=== PATIENT | female | born 1985 | race Caucasian/White ===

== ENCOUNTER → 2017-10-26 10:40 | Outpatient (CLI) | payer MEDICARE, SELFPAY ==
[2017-10-26 12:05] LABS: Absolute Lymphocyte Count 3.16 X10^3/ul (0.83-4.51); Absolute Neutrophil Count 9.4 X10^3/uL (2.0-7.7); Basophil# 0.02 X10^3/uL; Basophil% 0.1 % (0-1); Eosinophil# 0.22 X10^3/uL; Eosinophils% 1.6 % (0-5); Hematocrit 41.8 % (37-47); Lymphocyte # 3.16 X10^3/ul (4.0); Lymphocyte % 23.6 % (19-41); Mean Corp Hgb Conc 33.5 g/gl (32-36); Mean Corpuscular Hgb 27.9 pg (27.0-32.0); Mean Corpuscular Volume 83.3 fL (81-99); Mean Platelet Vol. 10.5 fl (6.2-12.0); Monocyte# 0.57 X10^3/uL; Monocyte% 4.3 % (0-10); Neutrophil # 9.37 X10^3/uL (2.7-7.7); Neutrophil % 70.2 % (47-70); Platelet Count 325 K/mm3 (150-450); RBC Distribution Width CV 13.1 % (11.6-14.6); RBC Distribution Width SD 39.5 fl (35.1-43.9); Red Blood Count 5.02 M/mm3 (4.2-5.4); White Blood Count 13.4 K/mm3 (4.4-11.0)
[2017-10-26 12:07] LABS: POSITIVE COUNT NO; POSITIVE DIFFERENTIAL NO; POSITIVE MORPHOLOGY NO
[2017-10-26 12:31] LABS: ALB/GLOB Ratio 0.8 RATIO (0.9-2.4); AST(SGOT) 45 U/L (15-37); Alanine Aminotransfer ALT/SGPT 97 U/L (13-56); Albumin, Serum 3.4 g/dL (3.2-5.0); Alkaline Phosphatase 143 U/L (45-117); Anion Gap 10 (5-15); BUN 12 mg/dL (7-18); BUN/Creat Ratio 12.7 RATIO (10-20); Calcium,Total 8.9 mg/dL (8.5-10.1); Chloride 106 mmol/L (98-107); Creatinine, Serum 0.95 mg/dL (0.55-1.02); EST Glomerular Filtration Rate 73 mL/min (>60); Est Glom Filt Rate - Afr Amer 89 mL/min (>60); Glucose 164 mg/dL (74-106); Potassium 3.9 mmol/L (3.5-5.1); Protein, Total 7.4 g/dL (6.4-8.2); Sodium Level 140 mmol/L (136-145); Thyroid Stim Hormone (TSH) 2.89 uIU/mL (0.358-3.74)
== END ==
PROVIDERS: Family Provider Family Medicine; PCP Family Medicine; Visit Provider Family Medicine
DX: F32.9 Major depressive disorder, single episode, unspecified (principal); E03.9 Hypothyroidism, unspecified
CPT/HCPCS: 36415; 80053; 84443; 85025

== ENCOUNTER → 2017-11-29 11:43 | Outpatient (CLI) | payer MEDICARE, SELFPAY ==
[2017-11-29 13:07] LABS: Hemoglobin A1c 7.6 % (4.2-6.3)
[2017-11-29 13:19] LABS: Free T3 2.5 pg/mL (2.18-3.98); Luteinizing Hormone 13.2 mIU/mL; T4 Free Direct 0.98 ng/dL (0.76-1.46); Thyroid Stim Hormone (TSH) 3.46 uIU/mL (0.358-3.74)
== END ==
PROVIDERS: Visit Provider Obstetrics & Gynecology
DX: N92.1 Excessive and frequent menstruation with irregular cycle (principal); E03.9 Hypothyroidism, unspecified; Z86.32 Personal history of gestational diabetes
CPT/HCPCS: 36415; 83001; 83002; 83036; 84146; 84439; 84443; 84481

== ENCOUNTER → 2018-01-21 14:15 | Outpatient (CLI) | payer MEDICARE, SELFPAY ==
[2018-01-29 16:49] LABS: HPV HC, High Risk Negative (Negative); HPV Reflexed? YES, CHARGE PATIENT
== END ==
PROVIDERS: Visit Provider Obstetrics & Gynecology
DX: Z12.4 Encounter for screening for malignant neoplasm of cervix (principal)
CPT/HCPCS: 87624; 88175; G0145

== ENCOUNTER 2018-03-28 15:46 | Emergency (ER) | payer MEDICARE, MEDICAID, SELFPAY ==
[2018-03-28 15:47] VITALS: BP 148/110; PULSE 93; RESP 16; TEMP 36; O2SAT 98; BMI 46.3
--- NOTE | 2018-03-28 16:24 | US_ITS ---
STUDY: ULTRASOUND OF THE FEMALE PELVIS - COMPLETE REASON FOR EXAM: Female, 33 years old. Right lower quadrant pain. LMP: March 06, 2018. TECHNIQUE: Transabdominal and Transvaginal TECHNICAL QUALITY: Adequate. COMPARISON: July 31, 2012. FINDINGS: The uterus is anteverted and is in a midline position. The uterus measures 8.6 x 5.7 x 3.6 cm. Normal uterine cervix. The endometrium measures 3 mm in thickness, and is hyperechoic. There is no demonstrated endometrial mass. There is no demonstrated myometrial mass. I.U.D. -there is an IUD in satisfactory position. The right ovary is visualized. The right ovary measures 6.1 x 5.4 x 4.3 cm. There is a 4.6 x 4.8 x 3.9 cm complex right ovarian cyst. There is no visualized right adnexal mass or complex lesion. There is normal arterial and normal venous vascularity. The left ovary is visualized. The left ovary measures 2.7 x 2.2 x 1.6 cm. There are multiple follicles of the left ovary without a dominant cyst. There is no visualized left adnexal mass or complex lesion. There is normal arterial and normal venous vascularity. There is a mild amount of fluid in the cul-de-sac. The urinary bladder appears grossly unremarkable Polycystic ovary disease: No. US/Transvaginal Non- IMPRESSION: 1. Large septated right ovarian cyst. 2. Normal uterus containing an IUD in satisfactory position. 3. Normal left ovary. 4. Mild free fluid in the posterior cul-de-sac, thought to be physiologic. Electronically Signed: Miguelito Koehler DO at 17:50 EST Tel [phone], Service support ,
--- NOTE | 2018-03-28 16:26 | ED.VISSUMM ---
- ER Visit Summary Date of Service: 03/28/18 Chief Complaint: ovary pain History of Present Illness: The patient is a 33 F who presents complaining of 1 hour of ovaries hurting. Patient states she had sudden onset of bilateral pelvic pain, right greater than left. Pain radiates into the back. It is sharp and stabbing, severe. She took ibuprofen without any relief. She had associated nausea. She denies fever, chest pain, shortness of breath, URI symptoms, vomiting, diarrhea or urinary symptoms. Last menstrual period was earlier this month. Patient states she has an IUD in place and does not think she is . She has a history of PCO S and an ovarian cyst. Also history of diabetes. Physical Examination: Vital signs: afebrile, hemodynamically stable, no hypoxia on room air General: well nourished, well developed, in no distress Skin: warm, dry, no rash, no pallor HEENT: normocephalic and atraumatic; PERRL, EOMI, moist mucous membranes Cardiovascular: regular rate and rhythm without murmurs, no peripheral edema, 2+ pulses all distal extremities Respiratory: No increased work of breathing, lungs are clear to auscultation bilaterally, no rales, rhonchi or wheezing Abdominal: Abdomen is soft, tender in the suprapubic region with normoactive bowel sounds, no guarding or rebound, no masses MSK: Moves all extremities, no deformities, normal strength Neuro: Awake and alert, oriented ?4. No facial droop, sensation and motor function intact and symmetric Test Results: Abnormal Lab Results 03/28/18 03/28/18 03/28/18 16:40 16:40 18:02 WBC 10.7 RBC 4.67 Hgb 13.2 Hct 39.5 MCV 84.6 MCH 28.3 MCHC 33.4 RDW 13.6 RDW Differential 41.3 Plt Count 209 MPV 11.3 Immature Gran % (Auto) 0.200 Neut % (Auto) 76.3 H Lymph % (Auto) 16.1 L [place] % (Auto) 5.6 Eos % (Auto) 1.6 Baso % (Auto) 0.2 Absolute Neuts (auto) 8.2 H Absolute Lymphs (auto) 1.72 Total Counted Not Reportable Sodium 135 L Potassium 4.7 Chloride 104 Carbon Dioxide 24.0 Anion Gap 7 BUN 13 Creatinine 0.72 Estim Creat Clear Calc 97.76 Est GFR (MDRD) Af Amer 122 Est GFR (MDRD) Non-Af 101 BUN/Creatinine Ratio 18.1 Glucose 117 H Calcium 8.6 Total Bilirubin 0.70 AST 41 H ALT 36 Alkaline Phosphatase 115 Total Protein 7.3 Albumin 3.5 Globulin 3.8 Albumin/Globulin Ratio 0.9 Urine Color Urine Clarity Urine pH Ur Specific [place] Urine Protein Urine Glucose (UA) Urine Ketones Urine Occult Blood Urine Nitrite Urine Bilirubin Urine Urobilinogen Ur Leukocyte Esterase Urine RBC Urine WBC Ur Squamous Epith Cells Urine Bacteria Urine Mucus Urine Test Negative 03/28/18 18:02 WBC RBC Hgb Hct MCV MCH MCHC RDW RDW Differential Plt Count MPV Immature Gran % (Auto) Neut % (Auto) Lymph % (Auto) [place] % (Auto) Eos % (Auto) Baso % (Auto) Absolute Neuts (auto) Absolute Lymphs (auto) Total Counted Sodium Potassium Chloride Carbon Dioxide Anion Gap BUN Creatinine Estim Creat Clear Calc Est GFR (MDRD) Af Amer Est GFR (MDRD) Non-Af BUN/Creatinine Ratio Glucose Calcium Total Bilirubin AST ALT Alkaline Phosphatase Total Protein Albumin Globulin Albumin/Globulin Ratio Urine Color Yellow Urine Clarity Clear Urine pH 6.0 Ur Specific [place] 1.015 Urine Protein Negative Urine Glucose (UA) Normal Urine Ketones Negative Urine Occult Blood Negative Urine Nitrite Negative Urine Bilirubin Negative Urine Urobilinogen Normal Ur Leukocyte Esterase Negative Urine RBC 0 SEEN Urine WBC 0 SEEN Ur Squamous Epith Cells 0-5 SEEN Urine Bacteria 0 SEEN Urine Mucus 0 SEEN Urine Test Clinical Impression(s) from Imaging Studies Transvaginal US 03/28/18 16:24 IMPRESSION: 1. Large septated right ovarian cyst. 2. Normal uterus containing an IUD in satisfactory position. 3. Normal left ovary. 4. Mild free fluid in the posterior cul-de-sac, thought to be physiologic. Electronically Signed: Miguelito Koehler DO at 17:50 EST Tel [phone], Service support , Medications Given Discontinued Medications Sodium Chloride () 1,000 mls @ 1,000 mls/hr IV .Q1H ONE Stop: 03/28/18 17:23 Last Admin: 03/28/18 16:59 Dose: 1,000 mls/hr Ketorolac Tromethamine (Toradol) 15 mg IV X1 ONE Stop: 03/28/18 16:26 Last Admin: 03/28/18 16:59 Dose: 15 mg Ondansetron HCl (Zofran) 4 mg IV X1 ONE Stop: 03/28/18 16:26 Last Admin: 03/28/18 16:59 Dose: 4 mg Emergency Department Course and Treatment: Patient given IV fluids, toradol and zofran for symptoms. Differential if patient is includes ectopic . Differential if not including ovarian torsion or appendicitis. Labs performed, including CBC, test, urinalysis, CMP, and a pelvic ultrasound performed. Patient's labs were unremarkable, with no leukocytosis, no significant electrolyte derangements. Urine negative for infection. negative. Ultrasound of the pelvis did show a large right ovarian cyst. No evidence of torsion. Patient received the Toradol for pain, and on reevaluation her pain was much improved. She was still mildly tender in the pelvic region but it was an improved examination. Patient states she feels well enough to go home. We discussed return precautions, including signs to watch for that might indicate appendicitis. Patient was discharged home in much improved condition. Treatment Plan: [] Disposition: [] Impression: Right ovarian cyst, pelvic pain This note was generated with [employer] dictation software. It may contain incorrect words, spelling, and punctuation that were not noted in review of the chart prior to signing ED Disposition - Plan for ED Patient: Disposition: Home or Assisted Living Chief Complaint: Abd Pain Instructions: ED Cyst Ovarian Prescriptions: RX: Ibuprofen 600 mg PO 4X/DAY PRN #20 tab PRN Reason: Pain Referrals: Yanelis Jones MD [Primary Care Provider] - 3-5 Days if not improving Additional Instructions: Use ibuprofen as needed for pain. If you develop fever, worsening pain, uncontrolled vomiting, decreased appetite, or have any other new or concerning symptoms, return immediately to the emergency department for another evaluation.
[2018-03-28] MEDS: Ondansetron 4 MG/2 ML Vial IV (16:59)
[2018-03-28] MEDS: 0.9% Normal Saline 1,000 ML 1000 ML IV (16:59)
[2018-03-28] MEDS: Ketorolac 15 MG/ML Vial IV (16:59)
[2018-03-28 17:06] LABS: Absolute Lymphocyte Count 1.72 X10^3/ul (0.83-4.51); Absolute Neutrophil Count 8.2 X10^3/uL (2.0-7.7); Basophil# 0.02 X10^3/uL; Basophil% 0.2 % (0-1); Eosinophil# 0.17 X10^3/uL; Eosinophils% 1.6 % (0-5); Hematocrit 39.5 % (37-47); Hemoglobin 13.2 g/dl (12.0-15.0); Lymphocyte # 1.72 X10^3/ul (4.0); Lymphocyte % 16.1 % (19-41); Mean Corp Hgb Conc 33.4 g/gl (32-36); Mean Corpuscular Hgb 28.3 pg (27.0-32.0); Mean Corpuscular Volume 84.6 fL (81-99); Mean Platelet Vol. 11.3 fl (6.2-12.0); Monocyte% 5.6 % (0-10); Neutrophil # 8.15 X10^3/uL (2.7-7.7); Neutrophil % 76.3 % (47-70); Platelet Count 209 K/mm3 (150-450); RBC Distribution Width CV 13.6 % (11.6-14.6); RBC Distribution Width SD 41.3 fl (35.1-43.9); Red Blood Count 4.67 M/mm3 (4.2-5.4); White Blood Count 10.7 K/mm3 (4.4-11.0)
[2018-03-28 17:10] LABS: POSITIVE COUNT NO; POSITIVE DIFFERENTIAL NO; POSITIVE MORPHOLOGY NO
[2018-03-28 17:37] LABS: ALB/GLOB Ratio 0.9 RATIO (0.9-2.4); AST(SGOT) 41 U/L (15-37); Alanine Aminotransfer ALT/SGPT 36 U/L (13-56); Albumin, Serum 3.5 g/dL (3.2-5.0); Alkaline Phosphatase 115 U/L (45-117); Anion Gap 7 (5-15); BUN 13 mg/dL (7-18); BUN/Creat Ratio 18.1 RATIO (10-20); Calcium,Total 8.6 mg/dL (8.5-10.1); Chloride 104 mmol/L (98-107); Creatinine, Serum 0.72 mg/dL (0.55-1.02); EST Glomerular Filtration Rate 101 mL/min (>60); Est Glom Filt Rate - Afr Amer 122 mL/min (>60); Estimated Creatinine Clearance 97.76 ml/min; Globulin 3.8 g/dL (2.2-4.2); Glucose 117 mg/dL (74-106); Potassium 4.7 mmol/L (3.5-5.1); Protein, Total 7.3 g/dL (6.4-8.2); Sodium Level 135 mmol/L (136-145)
[2018-03-28 18:13] LABS: Bacteria 0 SEEN /hpf (None Seen); Mucous, Urine 0 SEEN /hpf (<or=2+); Red Blood Cells-Urine 0 SEEN /hpf (0-5); White Blood Cells 0 SEEN /hpf (0-5)
[2018-03-28 18:22] LABS: Color, Urine Yellow (Yellow); Glucose, Dipstick Normal (Normal); Ketone-Dipstick Negative (Negative); Leukocyte Esterase-Dipstick Negative /ul (Negative); Nitrite-Dipstick Negative (Negative); Occult Blood-Urine Negative /ul (Negative); Protein-Dipstick Negative (Negative); Specific Gravity, Urine 1.015 (1.002-1.030); Urine Bilirubin Dipstick Negative (Negative); Urine Clarity Clear (Clear); Urine Urobilinogen Normal (Normal)
[2018-03-28 18:25] LABS: Internal QC Validated? YES +Cl - CLEAR BKGD; Pregnancy, Urine Negative Negative
[2018-03-28 18:32] LABS: Squamous Epithelial Cells - UA 0-5 SEEN /hpf (5-10)
--- NOTE | 2018-03-28 19:01 | ED.DEP ---
ED Disposition - Plan for ED Patient: Disposition: Home or Assisted Living Chief Complaint: Abd Pain Instructions: ED Cyst Ovarian Prescriptions: Ibuprofen 600 mg PO 4X/DAY PRN #20 tab PRN Reason: Pain Referrals: Yanelis Jones MD [Primary Care Provider] - 3-5 Days if not improving Additional Instructions: Use ibuprofen as needed for pain. If you develop fever, worsening pain, uncontrolled vomiting, decreased appetite, or have any other new or concerning symptoms, return immediately to the emergency department for another evaluation.
[2018-03-28 19:12] VITALS: BP 143/95; PULSE 74; RESP 18; O2SAT 95
== END 2018-03-28 19:12 | disposition home or self-care (01) ==
PROVIDERS: Emergency Provider Emergency Medicine; Family Provider Family Medicine; PCP Family Medicine
DX: N83.201 Unspecified ovarian cyst, right side (principal); R10.2 Pelvic and perineal pain; R11.0 Nausea; E66.9 Obesity, unspecified; E28.2 Polycystic ovarian syndrome; E11.9 Type 2 diabetes mellitus without complications; Z97.5 Presence of (intrauterine) contraceptive device; Z79.84 Long term (current) use of oral hypoglycemic drugs; Z79.899 Other long term (current) drug therapy
CPT/HCPCS: 76830; 80053; 81001; 81025; 85025; 93976; 96361; 96374; 96375; 99285; J7030; A4216; J2405

== ENCOUNTER → 2018-06-11 | Outpatient (CLI) | payer MEDICARE, SELFPAY ==
[2018-06-11 13:36] LABS: AST(SGOT) 18 U/L (15-37); Alanine Aminotransfer ALT/SGPT 35 U/L (13-56); Albumin, Serum 3.6 g/dL (3.2-5.0); Alkaline Phosphatase 127 U/L (45-117); Anion Gap 3 (5-15); BUN 14 mg/dL (7-18); BUN/Creat Ratio 18.4 RATIO (10-20); Calcium,Total 8.6 mg/dL (8.5-10.1); Chloride 104 mmol/L (98-107); Cholesterol 190 mg/dL (200); Creatinine, Serum 0.76 mg/dL (0.55-1.02); EST Glomerular Filtration Rate 94 mL/min (>60); Est Glom Filt Rate - Afr Amer 114 mL/min (>60); Globulin 3.4 g/dL (2.2-4.2); Glucose 135 mg/dL (74-106); High Density Lipoprotein 31 mg/dL; Potassium 4.6 mmol/L (3.5-5.1); Sodium Level 136 mmol/L (136-145); Triglycerides 188 mg/dL; Very Low Density Lipoprotein 38 mg/dL (5-40)
[2018-06-11 15:54] LABS: Microalbumin,Random Urine 13.8 mg/L (NO RANGE EST.); Microalbumin:Creatinine Ratio 9.4 mg/g CRE (<30 mg/g CRE)
== END | disposition home or self-care (01) ==
LOC: MFPLAB 11:16
PROVIDERS: Family Provider Family Medicine; PCP Family Medicine; Referring Provider Family Medicine; Visit Provider Family Medicine
DX: E11.9 Type 2 diabetes mellitus without complications (principal)
CPT/HCPCS: 36415; 80048; 80061; 80076; 82043; 82570

== ENCOUNTER → 2019-05-27 11:48 | Outpatient (CLI) | payer MEDICARE, SELFPAY ==
[2019-05-27 15:42] LABS: Microalbumin,Random Urine 13.4 mg/L (NO RANGE EST.); Microalbumin:Creatinine Ratio 7.1 mg/g CRE (<30 mg/g CRE)
[2019-05-27 15:45] LABS: AST(SGOT) 21 U/L (15-37); Alanine Aminotransfer ALT/SGPT 58 U/L (13-56); Albumin, Serum 3.6 g/dL (3.2-5.0); Alkaline Phosphatase 142 U/L (45-117); Anion Gap 9 (5-15); BUN 14 mg/dL (7-18); BUN/Creat Ratio 19.5 RATIO (10-20); Bilirubin, Direct 0.09 mg/dL (0.00-0.30); Calcium,Total 9.3 mg/dL (8.5-10.1); Chloride 101 mmol/L (98-107); Cholesterol 185 mg/dL (200); Creatinine, Serum 0.72 mg/dL (0.55-1.02); EST Glomerular Filtration Rate 100 mL/min (>60); Est Glom Filt Rate - Afr Amer 121 mL/min (>60); Globulin 4.3 g/dL (2.2-4.2); Glucose 156 mg/dL (74-106); High Density Lipoprotein 32 mg/dL; Potassium 4.2 mmol/L (3.5-5.1); Protein, Total 7.9 g/dL (6.4-8.2); Sodium Level 135 mmol/L (136-145); T4 Total, Thyroxin 11.8 ug/dL (4.8-13.9); Thyroid Stim Hormone (TSH) 2.93 uIU/mL (0.358-3.74); Triglycerides 184 mg/dL; Very Low Density Lipoprotein 37 mg/dL (5-40)
[2019-05-27 17:43] LABS: Hemoglobin A1c 6.5 % (4.2-6.3)
== END ==
PROVIDERS: PCP Family Medicine; Referring Provider Family Medicine; Visit Provider Family Medicine
DX: E11.9 Type 2 diabetes mellitus without complications (principal); E03.9 Hypothyroidism, unspecified
CPT/HCPCS: 36415; 80048; 80061; 80076; 82043; 82570; 83036; 84436; 84443

== ENCOUNTER → 2019-12-23 15:32 | Outpatient (CLI) | payer MEDICARE, MEDICAID, SELFPAY ==
[2019-12-23 17:46] LABS: Hematocrit 38.2 % (37-47); Hemoglobin 12.4 g/dL (12.0-15.0); Mean Corp Hgb Conc 32.5 g/dL (32-36); Mean Corpuscular Hgb 28.3 pg (27.0-32.0); Mean Corpuscular Volume 87.2 fL (81-99); Mean Platelet Vol. 10.5 fl (6.2-12.0); Platelet Count 252 K/mm3 (150-450); RBC Distribution Width CV 13.8 % (11.6-14.6); RBC Distribution Width SD 43.5 fl (35.1-43.9); Red Blood Count 4.38 M/mm3 (4.2-5.4); White Blood Count 13.1 K/mm3 (4.4-11.0)
[2019-12-23 18:03] LABS: Vitamin D,25 Hydroxy 13.2 ng/mL
[2019-12-23 18:07] LABS: ALB/GLOB Ratio 0.7 RATIO (0.9-2.4); AST(SGOT) 23 U/L (15-37); Alanine Aminotransfer ALT/SGPT 41 U/L (13-56); Albumin, Serum 2.9 g/dL (3.2-5.0); Alkaline Phosphatase 104 U/L (45-117); Anion Gap 8 (5-15); BUN 9 mg/dL (7-18); BUN/Creat Ratio 16.7 RATIO (10-20); Calcium,Total 8.6 mg/dL (8.5-10.1); Chloride 103 mmol/L (98-107); Creatinine, Serum 0.54 mg/dL (0.55-1.02); EST Glomerular Filtration Rate 139 mL/min (>60); Est Glom Filt Rate - Afr Amer 168 mL/min (>60); Globulin 3.9 g/dL (2.2-4.2); Glucose 145 mg/dL (74-106); Protein, Total 6.8 g/dL (6.4-8.2); Protein, Urine (Random) 21.1 mg/dL (<11.9); Sodium Level 137 mmol/L (136-145); Thyroid Stim Hormone (TSH) 1.01 uIU/mL (0.358-3.74)
[2019-12-23 18:27] LABS: Hemoglobin A1c 5.3 % (3.8-5.6)
== END ==
PROVIDERS: PCP Family Medicine
DX: O24.414 Gestational diabetes mellitus in pregnancy, insulin controlled (principal); O09.292 Supervision of pregnancy with other poor reproductive or obstetric history, second trimester; Z3A.00 Weeks of gestation of pregnancy not specified
CPT/HCPCS: 36415; 80053; 82306; 82570; 83036; 84156; 84443; 85027

== ENCOUNTER → 2020-03-03 15:09 | Outpatient (CLI) | payer MEDICARE, SELFPAY | PROVIDERS: PCP Family Medicine; Visit Provider Family Medicine | DX: J06.9 Acute upper respiratory infection, unspecified (principal) | CPT/HCPCS: 87635; U0003 ==

== ENCOUNTER 2020-05-07 23:30 | Outpatient (CLI) | payer MEDICARE, MEDICAID, SELFPAY ==
[2020-05-07 23:49] VITALS: PULSE 77; TEMP 35.6; O2SAT 97
[2020-05-07 23:50] VITALS: BP 178/96; PULSE 73
[2020-05-07 23:53] VITALS: BMI 46.2
[2020-05-08] VITALS (153 sets, daily range): BP systolic 102–177; BP diastolic 52–102; PULSE 57–83; RESP 12–20; TEMP 35.6–37.4; O2SAT 88–100
[2020-05-08 00:39] LABS: Protein, Urine (Random) 19.2 mg/dL (<11.9); Protein:Creat Ratio 178 mg/g CRE (0-200)
[2020-05-08] MEDS: Magnesium Sulfate 4gm/100mL 4 GM/100 ML IV.SOLN. IV (00:42)
[2020-05-08] MEDS: Magnesium Sulfate 4gm/100mL 2 GM/50 ML IV.SOLN. IV (01:02)
[2020-05-08] MEDS: Lactated Ringers 1,000 ML 15 ML IV (01:03)
[2020-05-08] MEDS: Labetalol (Prefilled) 20 MG/4 ML IV (01:08)
[2020-05-08 01:14] LABS: Hematocrit 41.2 % (37-47); Hemoglobin 13.2 g/dL (12.0-15.0); Mean Corpuscular Hgb 27.4 pg (27.0-32.0); Mean Corpuscular Volume 85.5 fL (81-99); Mean Platelet Vol. 9.6 fl (6.2-12.0); Platelet Count 341 K/mm3 (150-450); RBC Distribution Width CV 13.3 % (11.6-14.6); RBC Distribution Width SD 41.5 fl (35.1-43.9); Red Blood Count 4.82 M/mm3 (4.2-5.4); White Blood Count 11.3 K/mm3 (4.4-11.0)
[2020-05-08] MEDS: Magnesium Sulfate 20 GM/500 ML BAG IV ×3 (01:15→19:57)
[2020-05-08 01:36] LABS: AST(SGOT) 17 U/L (15-37); Alanine Aminotransfer ALT/SGPT 52 U/L (13-56); Creatinine, Serum 0.77 mg/dL (0.55-1.02); EST Glomerular Filtration Rate 92 mL/min (>60); Est Glom Filt Rate - Afr Amer 111 mL/min (>60); Estimated Creatinine Clearance 89.74 ml/min
[2020-05-08] MEDS: Labetalol 100 MG Tablet PO ×3 (02:04→22:00)
[2020-05-08] MEDS: Ibuprofen 600 MG Tablet PO ×3 (03:49→18:10)
--- NOTE | 2020-05-08 07:41 | HP.PCM_ITS ---
Problem List (1) Pre-eclampsia, Status: Acute (2) Obesity Status: Acute History and Physical Date of Admission: 05/07/20 35-year-old who delivered on 04/27/[address] Carlos De Oliveira at [facility] presents complaining of a headache and elevated blood pressures at home. Patient reports blood pressures at home systolics were 150s to 170s over 90s to 100s. Patient denies any visual changes epigastric or right upper quadrant pain. Patient reports that during her second she did have gestational diabetes that required insulin. Patient states that with her first she was preeclamptic and was induced and on magnesium. Patient states she did take aspirin during her last . She reports that her blood pressures at delivery were normal. On my arrival for evaluation of the patient she alluded that she had seen Dr. Han for this as well. Discussed with the patient that I will reach out to Dr. Han for her to resume care at this time. PMH: GDMA2, pt reports she thinks she might be diabetic outside of , Obesity OBHX: x 2 complicated by GDMA2, PRE E (took labetalol post with first child) Gen: Female resting comfortably in bed. Abd: soft, non tender to palpation. No rebound, no guarding ext: +2 DTR, no clonus a/p: 35you s/p on 04/27/20 complicated by GDMA2 present with Post Preeclampsia in severe range. 1) After discussion with patient and care Dr. Han was called and will resume care at this time 2) Magnesium 6g loading 2 g/hr started 3) Labetalol IV 20mg given x 1 4) PO labetalol held this morning due to low BP- will continue to monitor 5) PRE E labs completed Singing off on patient- Dr. Han given report and will resume care.
[2020-05-08 11:21] LABS: Bedside Glucose 105 mg/dL (70-110)
[2020-05-08 17:15] LABS: Bedside Glucose 105 mg/dL (70-110)
--- NOTE | 2020-05-08 17:33 | PCM.PN.BLA ---
Progress Note Stopped in ~ 1:45 pm to see patient admitted with headaches and elevated BP's 2 wks post . Currently on MgSO4 at 2gm /he S: Hungry. LOPEZ resolved. Lochia -scant. Feels much better than on presentation O; A&O x 3 , cooperative , in fall protected bed abdomen: soft, , non tender Ext: NT, reflexes 1+/4 Labs reviewed: no proteinuria of significance. Chemistries unremarkable other than elevated uric acid. A/P: Atypical Pre eclampsia - Pt with insulin controlled DM in , possibly diabetic outside - will monitor blood sugars while here. Continue to pump to maintain breastmilk BP's appear controlled on Labetalol 200mg bid. will continue. Obesity - nursing encouraged, will need to address on chronic basis Thanks to Dr. Joy for admission and care. STROKE Vital Signs/Narrative: Vital Signs Temp Pulse Resp BP Pulse Ox 05/08/20 17:12 78 96 05/08/20 17:07 75 16 121/69 H 97 05/08/20 16:05 98.3 F 80 16 137/71 H 97 05/08/20 15:06 76 135/72 H 98 05/08/20 15:05 72 16 135/72 H 98 05/08/20 14:07 65 14 126/70 H 97 05/08/20 14:06 63 126/70 H 96
[2020-05-08] MEDS: Pantoprazole Sodium 40 MG Tablet PO (21:17)
[2020-05-08] MEDS: Acetaminophen 500 MG Tablet 1000 MG PO (22:00)
[2020-05-08 22:36] LABS: Bedside Glucose 128 mg/dL (70-110)
[2020-05-09] VITALS (8 sets, daily range): BP systolic 132–158; BP diastolic 68–81; PULSE 56–74; RESP 14–18; TEMP 35.8–37.1; O2SAT 91–96
[2020-05-09] MEDS: Ibuprofen 600 MG Tablet PO (00:28)
[2020-05-09 01:46] LABS: Bedside Glucose 106 mg/dL (70-110)
[2020-05-09 05:00] LABS: Bedside Glucose 103 mg/dL (70-110)
[2020-05-09] MEDS: Labetalol 100 MG Tablet PO (10:50)
[2020-05-09] MEDS: Pantoprazole Sodium 40 MG Tablet PO (10:51)
--- NOTE | 2020-05-09 11:57 | PN.OBGYN_ITS ---
Patient Problems: Active and Suspected Problems Pre-eclampsia, (Acute) Obesity (Acute) Subjective: feels fine Objective: Sleeping, Rouses easily. A& O cooperative - Physical Exam Vitals/I&O's: Vital Signs Temp Pulse Resp BP Pulse Ox 97.9 F 58 L 16 134/70 H 96 05/09/20 08:32 05/09/20 08:33 05/09/20 08:32 05/09/20 08:33 05/09/20 04:50 Oxygen Delivery Method Room Air Weight: 122.1 kg Body Mass Index (BMI) 46.2 Intake and Output for Last 24 Hours 05/07/20 05/08/20 05/09/20 23:59 23:59 23:59 Intake Total 3242.92 / 3242.92 370.92 / 370.92 Output Total 2500 / 2500 450 / 450 Balance 742.92 / 742.92 -79.08 / -79.08 General: Alert, Oriented x3, Cooperative HEENT: Atraumatic Lungs: Clear to auscultation Cardiovascular: Regular rate, Regular Rhythm, Normal S1, Normal S2, No murmurs Abdomen: Soft, Non Tender, No Hepato-splenomegaly Extremities: No edema, No Calf Tenderness Neurological: Deep Tendon Reflexes 2+/4 and Symmetrical Psych/Mental Status: Normal Affect Laboratory Results 05/08/20 17:12: POC Glucose 105 05/08/20 22:31: POC Glucose 128 H 05/09/20 01:38: POC Glucose 106 05/09/20 04:47: POC Glucose 103 Current Medications Acetaminophen (Acetaminophen 500 Mg Tablet) 1,000 mg PO Q8H PRN PRN PRN Reason: HEADACHE 1-10 Last Admin: 05/08/20 22:00 Dose: 1,000 mg Documented by: Hydralazine HCl (Hydralazine 20 Mg/Ml Vial) 10 mg IV X1 PRN PRN Reason: Elevated BP Calcium Gluconate 1 gm/ N/A 10 mls @ 2 mls/min IV X1 PRN PRN Reason: Magnesium Toxicity Magnesium Sulfate (20gm/500ml) 20 gm in 500 mls @ 50 mls/hr IV .Q10H NANCY; Protocol Last Infusion: 05/09/20 01:15 Dose: Infused Documented by: Lactated Ringer's () 1,000 mls @ 15 mls/hr IV .Q48H [facility] Last Infusion: 05/09/20 01:15 Dose: Infused Documented by: Ibuprofen (Ibuprofen 600 Mg Tablet) 600 mg PO Q6H PRN PRN PRN Reason: HEADACHE 1-10 Last Admin: 05/09/20 00:28 Dose: 600 mg Documented by: Labetalol HCl (Labetalol 100 Mg/20 Ml Vial) 80 mg IV X1 PRN PRN Reason: Elevated BP Labetalol HCl (Labetalol (Prefilled) 20 Mg/4 Ml) 40 mg IV X1 PRN PRN Reason: Elevated BP Labetalol HCl (Labetalol 100 Mg Tablet) 100 mg PO BID [facility] Last Admin: 05/09/20 10:50 Dose: 100 mg Documented by: Labetalol HCl (Labetalol (Prefilled) 20 Mg/4 Ml) 20 mg IV Q10M PRN PRN PRN Reason: Elevated BP Midazolam HCl (Midazolam 2 Mg/2 Ml Syringe) 2 mg IV X1 PRN PRN Reason: Seizure Activity Ondansetron HCl (Ondansetron 4 Mg/2 Ml Vial) 4 mg IV Q8H PRN PRN PRN Reason: NAUSEA/VOMITING Pantoprazole Sodium (Pantoprazole Sodium 40 Mg Tablet) 40 mg PO DAILY [facility] Last Admin: 05/09/20 10:51 Dose: 40 mg Documented by: Medical Necessity - Tobacco Use Smoking Status: Never smoker Assessment/Plan All Active Problems Pre-eclampsia, (Acute) Obesity (Acute) BP reasonable control on 100mg bid. Will increase to tid as patient has had no activity and is now going home.
== END 2020-05-09 12:30 | disposition home or self-care (01) ==
LOC: WPOUT 23:41 → OBT 23:41 → WP 05-08 00:35
PROVIDERS: Obstetrics & Gynecology; PCP Family Medicine; Referring Provider Obstetrics & Gynecology Gynecology; Visit Provider Obstetrics & Gynecology Gynecology
DX: O14.95 Unspecified pre-eclampsia, complicating the puerperium (principal); O99.215 Obesity complicating the puerperium; E66.9 Obesity, unspecified; Z86.32 Personal history of gestational diabetes; Z79.899 Other long term (current) drug therapy; Z68.42 Body mass index [BMI] 45.0-49.9, adult
CPT/HCPCS: 96361 ×18; 96374; 96375; 36415; 82565; 82570; 82962; 84156; 84450; 84460; 84550; 85027; 99218; J7120; A4216; G0378

== ENCOUNTER → 2020-09-15 07:44 | Outpatient (CLI) | payer MEDICARE, MEDICAID, SELFPAY ==
--- NOTE | 2020-09-15 15:48 | NEURO ---
NCS and/or EMG Patient Report Ordering Doctor: Yanelis Jones DATE OF SERVICE: 09/15/20 Cata presents for electrodiagnostic testing of the upper limbs. She reports numbness and tingling in both hands. Electrodiagnostic findings:Median motor nerve demonstrates prolonged distal latency bilaterally with normal amplitude and reduced conduction velocity on the right side. Normal ulnar motor response bilaterally. Normal median ulnar F waves. Prolonged median sensory latency at the wrist bilaterally. On needle EMG, all muscles tested in the upper limbs showed no evidence of denervation with normal motor unit action potentials. Electrodiagnostic impression: This is an abnormal study in the upper limbs 1) electrodiagnostic findings demonstrate bilateral median mononeuropathy. This is consistent with a mild bilateral carpal tunnel syndrome
== END ==
PROVIDERS: PCP Family Medicine; Referring Provider Family Medicine; Visit Provider Family Medicine
DX: G56.00 Carpal tunnel syndrome, unspecified upper limb (principal); R20.2 Paresthesia of skin
CPT/HCPCS: 95886; 95912

== ENCOUNTER → 2020-09-21 | Outpatient (CLI) | payer MEDICARE, MEDICAID, SELFPAY | END | disposition home or self-care (01) | LOC: LABSPEC 10:19 | PROVIDERS: PCP Family Medicine; Referring Provider Nurse Practitioner Family; Visit Provider Nurse Practitioner Family | DX: R10.9 Unspecified abdominal pain (principal) | CPT/HCPCS: 87086; 87088 ==

== ENCOUNTER → 2021-10-27 | Outpatient (CLI) | payer MEDICARE, MEDICAID, SELFPAY | END | disposition home or self-care (01) | PROVIDERS: PCP Family Medicine; Visit Provider Nurse Practitioner Family | DX: J06.9 Acute upper respiratory infection, unspecified (principal) | CPT/HCPCS: 87633 ==

== ENCOUNTER → 2021-11-25 | Outpatient (CLI) | payer MEDICARE, MEDICAID, SELFPAY ==
[2021-11-25 15:12] LABS: AST(SGOT) 10 U/L (15-37); Alanine Aminotransfer ALT/SGPT 30 U/L (13-56); Albumin, Serum 3.6 g/dL (3.2-5.0); Alkaline Phosphatase 111 U/L (45-117); Anion Gap 7 (5-15); BUN 12 mg/dL (7-18); BUN/Creat Ratio 13.8 RATIO (10-20); Bilirubin, Direct 0.07 mg/dL (0.00-0.30); Calcium,Total 9.2 mg/dL (8.5-10.1); Chloride 104 mmol/L (98-107); Cholesterol 189 mg/dL (200); Creatinine, Serum 0.87 mg/dL (0.55-1.02); EST Glomerular Filtration Rate 79 mL/min (>60); Est Glom Filt Rate - Afr Amer 95 mL/min (>60); Globulin 4.5 g/dL (2.2-4.2); Glucose 135 mg/dL (74-106); High Density Lipoprotein 39 mg/dL; Protein, Total 8.1 g/dL (6.4-8.2); Sodium Level 138 mmol/L (136-145); Triglycerides 150 mg/dL; Very Low Density Lipoprotein 30 mg/dL (5-40)
== END | disposition home or self-care (01) ==
LOC: MFPLAB 11:40
PROVIDERS: PCP Family Medicine; Referring Provider Family Medicine; Visit Provider Family Medicine
DX: E11.9 Type 2 diabetes mellitus without complications (principal)
CPT/HCPCS: 36415; 80048; 80061; 80076

== ENCOUNTER 2022-05-17 12:59 | Emergency (ER) | payer MEDICARE, MEDICAID, SELFPAY ==
[2022-05-17 12:59] VITALS: BP 136/96; PULSE 126; RESP 18; TEMP 36.3; O2SAT 98; BMI 45.4
--- NOTE | 2022-05-17 14:01 | EDS_ITS ---
HPI History of Present Illness Chief Complaint: Nausea/Vomiting/Diarrhea Informant: patient Onset/Context/Timing Onset: Today Current Severity: Moderate Maximum Severity: Severe Narrative Narrative: Patient presents secondary to nausea, vomiting, and diarrhea. She states her symptoms started early this morning. She has members of her household that are ill with similar. No known fever. Mild suprapubic left lower quadrant pain. No urinary symptoms. Denies possibility of and has IUD in place. [facility] Medical History BPPV (benign paroxysmal positional vertigo) Home Medications Omeprazole 05/07/20 [History Last Taken Unknown] acetaminophen 500 mg tablet 500 mg PO Q6H PRN PRN Headache 05/07/20 [History Last Taken 05/07/20 15:00 1000 mg] [id number]-[id number]-[id number] 50 mg-325 mg-40 mg tablet 1 - 2 tab PO Q4H PRN PRN Headache 05/07/20 [History Last Taken 05/07/20 21:30 2] omeprazole 40 mg capsule,delayed release 40 mg PO DAILY 05/07/20 [History Last T aken 05/06/20 10:00] sertraline 100 mg tablet 125 mg PO DAILY 05/07/20 [History Last Taken 05/07/20 10:00] acetaminophen 500 mg tablet 1,000 mg PO Q8H PRN PRN HEADACHE 1-10 05/09/20 [Rx Last Taken Unknown] ibuprofen 600 mg tablet 600 mg PO Q6H PRN PRN HEADACHE 1-10 #0 tabs 05/09/20 [Rx Last Taken Unknown] labetalol 100 mg tablet 100 mg PO TID #30 tabs 05/09/20 [Rx Last Taken Unknown] amoxicillin 875 mg-potassium clavulanate 125 mg tablet 1 tab PO Q12H #20 tabs 02/24/21 [Rx Last Taken Unknown] meclizine 25 mg tablet 25 mg PO TID PRN dizziness #20 tabs 03/23/22 [Rx Last Taken Unknown] omeprazole 40 mg capsule,delayed release 40 mg PO DAILY 14 days #14 caps 05/17/22 [Rx Last Taken Unknown] promethazine 25 mg tablet 25 mg PO Q6H PRN nausea and vomiting #20 tabs 05/17/22 [Rx Last Taken Unknown] Allergy/AdvReac Type Severity Reaction Status Date / Time quetiapine fumarate Allergy Other Verified 05/17/22 13:01 [From Seroquel] Sulfa (Sulfonamide AdvReac Diarrhea Verified 05/17/22 13:01 Antibiotics) Social History Smoking Status: Never smoker ROS ROS ED Constitutional Constitutional ED: Denies chills or fever(s) Eyes Eyes: Denies change in vision or discharge from eye(s) ENT ENT ED: Denies discharge from eye(s), rhinorrhea or sore throat Cardiovascular Cardiovascular: Denies chest pain or palpitations Respiratory/Chest Respiratory/Chest: Denies cough or dyspnea Gastrointestinal Gastrointestinal: Reports abdominal pain, diarrhea, nausea and vomiting Genitourinary Genitourinary ED: Reports other Details: Decreased urination Musculoskeletal Musculoskeletal: Denies back pain or extremity pain Integumentary Denies Abrasions or rash Neurologic Neurologic: Denies headache(s) or weakness Allergic/Immunologic Allergic/Immunologic ED: Denies lip swelling or urticaria EXAM Physical Exam Const Vital Signs: 05/17/22 12:59 Temperature 97.4 F L Temperature Source Temporal Pulse Rate 126 H Respiratory Rate 18 Blood Pressure 136/96 H Blood Pressure Mean 109 Pulse Ox 98 Oxygen Delivery Method Room Air Positive well nourished and well developed General Appearance ED: well developed HEENT Reports normocephalic and head/scalp atraumatic Eyes PERRL and EOMs intact bilaterally Neck supple Chest Wall inspection of chest normal and palpation of chest normal Resp normal respiratory effort and clear to auscultation bilaterally Cardio regular rate and regular rhythm GI non-tender Auscultation: hypoactive bowel sounds Palpation: soft Extremity normal to inspection Neuro oriented x3 and no sensory deficits noted Sensorium / Orientation: alert Motor Exam: strength 5/5 throughout Psych mental status grossly normal Skin no rashes or lesions noted MDM MDM MDM Narrative Medical decision making narrative: Patient given IV fluids. Labwork obtained to evaluate for leukocytosis, anemia, and electrolyte derangement. Patient took Zofran at home earlier and had no improvement in her symptoms. She is given Phenergan at this time. Lab Data Attestation: I reviewed the patient's lab results. Labs: Laboratory Results - last 24 hr 05/17/22 05/17/22 14:18 14:18 WBC 16.4 H RBC 5.81 H Hgb 15.1 H Hct 46.4 MCV 79.9 L MCH 26.0 L MCHC 32.5 RDW Std Deviation 39.9 RDW Coeff of Drake 13.9 Plt Count 331 MPV 10.2 Immature Gran % (Auto) 0.900 Neut % (Auto) 93.9 H Lymph % (Auto) 2.6 L [place] % (Auto) 2.3 Eos % (Auto) 0.1 Baso % (Auto) 0.2 Absolute Neuts (auto) 15.4 H Absolute Lymphs (auto) 0.42 L Nucleated RBC % 0 Sodium 135 L Potassium 3.6 Chloride 98 Carbon Dioxide 26.0 Anion Gap 11 BUN 14 Creatinine 0.79 Estim Creat Clear Calc 85.83 Est GFR (MDRD) Af Amer 106 Est GFR (MDRD) Non-Af 88 BUN/Creatinine Ratio 17.7 Glucose 190 H Calcium 9.2 Treatment and Re-Evaluation :: CBC was white count of 16.4, likely reactive from vomiting. Hemoglobin is concentrated at 15.1 consistent with mild dehydration. Chemistry studies are unremarkable. On repeat evaluation patient is able to tolerate ice chips. She is complaining of burning sensation in her abdomen just likely secondary to stomach acid. I will write her for Prilosec as well as Phenergan. Return instructions provided. Discharge Plan Triage Chief Complaint: Nausea/Vomiting/Diarrhea ED Provider: Jessika Zazueta Dx/Rx/DC Orders Clinical Impression: Viral gastroenteritis Instructions: ED Gastroenteritis, Viral (Adult) Prescriptions: New promethazine 25 mg tablet 25 mg PO Q6H PRN (Reason: nausea and vomiting) Qty: 20 0RF omeprazole 40 mg capsule,delayed release(DR/EC) 40 mg PO DAILY 14 Days Qty: 14 0RF No Action amoxicillin-pot clavulanate 875-125 mg tablet 1 tab PO Q12H Qty: 20 0RF meclizine 25 mg tablet 25 mg PO TID PRN (Reason: dizziness) Qty: 20 0RF sertraline 100 MG tablet 125 mg PO DAILY omeprazole 40 MG capsule,delayed release(DR/EC) 40 mg PO DAILY acetaminophen 500 MG tablet 500 mg PO Q6H PRN PRN (Reason: Headache) [id number] 1 TABLET tablet 1 - 2 tab PO Q4H PRN PRN (Reason: Headache) Omeprazole acetaminophen 500 MG tablet 1,000 mg PO Q8H PRN PRN (Reason: HEADACHE 1-10) 0RF ibuprofen 600 MG tablet 600 mg PO Q6H PRN PRN (Reason: HEADACHE 1-10) Qty: 0 0RF labetalol 100 MG tablet 100 mg PO TID Qty: 30 0RF Primary Care Provider: Yanelis Jones Referrals: Yanelis Jones MD [Primary Care Provider] - 3-5 Days if not improving Disposition Disposition: Home, Self Care
[2022-05-17] MEDS: 0.9% Normal Saline 1,000 ML 1000 ML IV (14:17)
[2022-05-17] MEDS: proMETHazine 25 MG/ML Syringe IM (14:22)
[2022-05-17 14:38] LABS: Anion Gap 11 (5-15); BUN 14 mg/dL (7-18); BUN/Creat Ratio 17.7 RATIO (10-20); Calcium,Total 9.2 mg/dL (8.5-10.1); Chloride 98 mmol/L (98-107); Creatinine, Serum 0.79 mg/dL (0.55-1.02); EST Glomerular Filtration Rate 88 mL/min (>60); Est Glom Filt Rate - Afr Amer 106 mL/min (>60); Estimated Creatinine Clearance 85.83 ml/min; Glucose 190 mg/dL (74-106); Potassium 3.6 mmol/L (3.5-5.1); Sodium Level 135 mmol/L (136-145)
[2022-05-17 14:41] LABS: Absolute Lymphocyte Count 0.42 X10^3/uL (0.83-4.51); Absolute Neutrophil Count 15.4 X10^3/uL (2.0-7.7); Basophil# 0.03 X10^3/uL; Basophil% 0.2 % (0-1); Eosinophil# 0.01 X10^3/uL; Eosinophils% 0.1 % (0-5); Hematocrit 46.4 % (37-47); Hemoglobin 15.1 g/dL (12.0-15.0); Lymphocyte # 0.42 X10^3/ul (0.83-4.51); Lymphocyte % 2.6 % (19-41); Mean Corp Hgb Conc 32.5 g/dL (32-36); Mean Corpuscular Volume 79.9 fL (81-99); Mean Platelet Vol. 10.2 fl (6.2-12.0); Monocyte# 0.37 X10^3/uL; Monocyte% 2.3 % (0-10); NRBC Flagged by Analyzer 0 % (0-5); Neutrophil # 15.41 X10^3/uL (2.7-7.7); Neutrophil % 93.9 % (47-70); POSITIVE DIFFERENTIAL YES; Platelet Count 331 K/mm3 (150-450); RBC Distribution Width CV 13.9 % (11.6-14.6); RBC Distribution Width SD 39.9 fl (35.1-43.9); Red Blood Count 5.81 M/mm3 (4.2-5.4); White Blood Count 16.4 K/mm3 (4.4-11.0)
[2022-05-17 14:44] LABS: Differential Indicated SCAN CRITERIA MET
[2022-05-17 15:51] VITALS: BP 134/87; PULSE 90; RESP 16; O2SAT 97
== END 2022-05-17 15:53 | disposition home or self-care (01) ==
PROVIDERS: Emergency Provider Emergency Medicine; PCP Family Medicine; Visit Provider Emergency Medicine
DX: A08.4 Viral intestinal infection, unspecified (principal); Z97.5 Presence of (intrauterine) contraceptive device; Z79.3 Long term (current) use of hormonal contraceptives; Z79.899 Other long term (current) drug therapy; H81.10 Benign paroxysmal vertigo, unspecified ear
CPT/HCPCS: 80048; 85025; 96360; 96361; 96372; 99284; J7030; A4216

== ENCOUNTER → 2022-10-17 | Outpatient (CLI) | payer MEDICARE, MEDICAID, SELFPAY ==
[2022-10-17 12:23] LABS: Absolute Neutrophil Count 7.5 X10^3/uL (2.0-7.7); Basophil# 0.04 X10^3/uL; Basophil% 0.4 % (0-1); Eosinophil# 0.17 X10^3/uL; Eosinophils% 1.5 % (0-5); Hematocrit 44.5 % (37-47); Hemoglobin 14.9 g/dL (12.0-15.0); Lymphocyte % 24.3 % (19-41); Mean Corp Hgb Conc 33.5 g/dL (32-36); Mean Corpuscular Hgb 27.6 pg (27.0-32.0); Mean Corpuscular Volume 82.6 fL (81-99); Mean Platelet Vol. 10.6 fl (6.2-12.0); Monocyte# 0.68 X10^3/uL; Monocyte% 6.1 % (0-10); NRBC Flagged by Analyzer 0 % (0-5); Neutrophil # 7.49 X10^3/uL (2.7-7.7); Neutrophil % 67.3 % (47-70); Platelet Count 370 K/mm3 (150-450); RBC Distribution Width CV 13.3 % (11.6-14.6); RBC Distribution Width SD 39.9 fl (35.1-43.9); Red Blood Count 5.39 M/mm3 (4.2-5.4); White Blood Count 11.1 K/mm3 (4.4-11.0)
[2022-10-17 12:46] LABS: Vitamin D,25 Hydroxy 29.5 ng/mL
[2022-10-17 12:53] LABS: Hemoglobin A1c 8.2 % (3.8-5.6)
[2022-10-17 13:20] LABS: ALB/GLOB Ratio 0.9 RATIO (0.9-2.4); AST(SGOT) 48 U/L (15-37); Alanine Aminotransfer ALT/SGPT 100 U/L (13-56); Albumin, Serum 3.7 g/dL (3.2-5.0); Alkaline Phosphatase 117 U/L (45-117); Anion Gap 9 (5-15); BUN 11 mg/dL (7-18); BUN/Creat Ratio 15.1 RATIO (10-20); Calcium,Total 9.2 mg/dL (8.5-10.1); Chloride 101 mmol/L (98-107); Cholesterol 203 mg/dL (200); Creatinine, Serum 0.73 mg/dL (0.55-1.02); EST Glomerular Filtration Rate 96 mL/min (>60); Est Glom Filt Rate - Afr Amer 116 mL/min (>60); Globulin 4.1 g/dL (2.2-4.2); Glucose 191 mg/dL (74-106); High Density Lipoprotein 38 mg/dL; Potassium 3.7 mmol/L (3.5-5.1); Protein, Total 7.8 g/dL (6.4-8.2); Sodium Level 136 mmol/L (136-145); Triglycerides 172 mg/dL; Very Low Density Lipoprotein 34 mg/dL (5-40)
[2022-10-17 13:38] LABS: Microalbumin,Random Urine 6.5 mg/L (NO RANGE EST.); Microalbumin:Creatinine Ratio 6.3 mg/g CRE (<30 mg/g CRE)
== END | disposition home or self-care (01) ==
LOC: BIMLAB 09:59
PROVIDERS: PCP Internal Medicine; Referring Provider Internal Medicine; Visit Provider Internal Medicine
DX: E11.9 Type 2 diabetes mellitus without complications (principal); E55.9 Vitamin D deficiency, unspecified
CPT/HCPCS: 36415; 80053; 80061; 82043; 82306; 82570; 83036; 85025

== ENCOUNTER → 2022-11-10 | Outpatient (CLI) | payer MEDICARE, MEDICAID, SELFPAY ==
--- NOTE | 2022-11-10 08:45 | EKG12_ITS ---
Test Reason : PALPS Blood Pressure : / mmHG Vent. Rate : 067 BPM Atrial Rate : 067 BPM P-R Int : 136 ms QRS Dur : 096 ms QT Int : 434 ms P-R-T Axes : 037 041 044 degrees QTc Int : 458 ms Normal sinus rhythm with sinus arrhythmia Normal ECG Confirmed by NILE LOCO, CANDIS ([id number]), electronic news gathering editor ESTELLE RIOS ([id number]) on 11/20/2022 7:38:05 AM Referred By: Cindy Acosta Confirmed By:CANDIS DOWD MD
--- NOTE | 2022-11-10 08:45 | US_ITS ---
STUDY: ABDOMINAL ULTRASOUND - RIGHT UPPER QUADRANT REASON FOR VISIT: Female, 37 years old elevated liver enzymes TECHNIQUE: Ultrasound evaluation of the right upper quadrant was performed with real-time and static bond-scale imaging. TECHNICAL QUALITY: Adequate. COMPARISON: Comparison is made with prior study October 28, 2015. FINDINGS: Liver: The liver is enlarged and measures 19 cm. There is increased echogenicity consistent with fatty infiltration. The bile ducts are within normal limits. There is hepatic color flow. The direction of portal flow is hepatopetal. There is no demonstrated mass lesion. Gallbladder: Normal distended gallbladder. The gallbladder wall measures 2 mm. There is a negative sonographic Daugherty''s sign. There is no pericholecystic fluid. There are no gallstones. Common Bile Duct (C.B.D.): The common bile duct measures 5 mm. Pancreas: Normal size of the head, body and tail of the pancreas. There is normal echogenicity of the pancreas. There is no demonstrated pancreatic mass or cyst. Right Kidney: Normal size of the right kidney. The right kidney measures 13.2 cm x 5.8 cm x 5.2 cm. Normal renal cortex. The right cortex measures 2.6 cm. There is no demonstrated renal mass or cyst. There is no right hydronephrosis. US/Liver IMPRESSION: Mild hepatomegaly and fatty infiltration of the liver. Electronically Signed: Sony Brown MD at 14:46 EDT ,
== END | disposition home or self-care (01) ==
LOC: US 08:44
PROVIDERS: PCP Internal Medicine; Referring Provider Internal Medicine; Visit Provider Internal Medicine
DX: R74.8 Abnormal levels of other serum enzymes (principal); R07.9 Chest pain, unspecified
CPT/HCPCS: 76705; 93005

== ENCOUNTER 2022-12-15 08:48 | Day surgery (SDC) | payer MEDICARE, MEDICAID, SELFPAY ==
[2022-12-15] VITALS (7 sets, daily range): BP systolic 72–134; BP diastolic 41–99; PULSE 92–114; RESP 16–18; TEMP 36.1–36.8; O2SAT 93–98; BMI 44.5
--- NOTE | 2022-12-15 | GASB_PTH ---
PATIENT: DORY HENDERSON LOC: EN U#:[id number] AGE/SX: 37/F ROOM: RE12/15/[address]: Dr. Dave Medrano MD : 1985 BED: DIS: 12/15/2022 SPEC #: [id number] RECD: 12/15/22 13:44 STATUS: CAL LUIGI #: [id number] ENDER: 12/15/22 00:[address]: Dave Medrano DEPT: SURGICAL PATHOLOGY RECD BY: Albino Garcia ENTERED: 12/15/22 13:45 SP TYPE: Gastric Bx OTHR DR: Dr. Cindy Acosta MD Tissues: A - Gastric mucous membrane B - Gastric mucous membrane C - Gastric mucous membrane Procedures: Surgery Specimen Level IV HEADER OPERATION: EGD, biopsy and gastric polypectomy PRE-OP DIAGNOSIS: GERD TISSUE SUBMITTED: A - Antral biopsy, H. pylori and path, B - Body mucosal nodules, C - Gastric polyps, snare and biopsy forceps MICROSCOPIC DIAGNOSIS A. Antral biopsy: Mild gastritis. See microscopic description and comment. B. Body mucosal nodules, biopsy: Minimal gastritis. See microscopic description. C. Gastric polyp, biopsy: Fragments of fundic gland polyp. SJ:ganesh 12/18/2022 COMMENT A. The results of immunohistochemistry for Helicobacter pylori will be reported separately ([id number]). MICROSCOPIC DESCRIPTION Slides are reviewed. A. The specimen shows fragments of gastric mucosa with chronic inflammatory cell infiltrates in the lamina propria consisting of lymphocytes and plasma cells, consistent with mild chronic gastritis. B. The specimen shows fragments of gastric mucosa with chronic inflammatory cell infiltrates in the lamina propria consisting of lymphocytes and plasma cells, consistent with minimal chronic gastritis. GROSS DESCRIPTION A - Received in fixative is one container labeled with the patient's name and designated antral biopsy. The specimen consists of two irregular fragments of light sheth soft tissue that in aggregate measure 0.6 x 0.5 x 0.1 cm. The specimen is totally submitted in one cassette. B - Received in fixative is one container labeled with the patient's name and designated body mucosal nodule. The specimen consists of one irregular fragment of light sheth soft tissue that measures 0.6 x 0.5 x 0.1 cm. The specimen is totally submitted in one cassette. C - Received in fixative is one container labeled with the patient's name and designated gastric polyps. The specimen consists of multiple irregular fragments of light sheth soft tissue that in aggregate measure 1.5 x 1.0 x 0.1 cm. The specimen is totally submitted in one cassette. / AM:ganesh 12/15/2022 TC:3 CPT: 30688 x3
[2022-12-15 09:15] LABS: Internal QC Validated? YES +Cl - CLEAR BKGD; Pregnancy, Urine Negative Negative; Record Kit Lot#,Urine Preg HCG0000667200
[2022-12-15] MEDS: Lactated Ringers 1,000 ML 15 ML IV (09:18)
[2022-12-15 09:35] LABS: Bedside Glucose 171 mg/dL (74-106)
--- NOTE | 2022-12-15 09:44 | PCM.HP.BLA ---
History and Physical Date of Service: 11/02/22 MR#: [id number] Acct: [id number] Name: DORY BARRETT Rep #: [id number] : 1985 Provider: Dr. 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 Required: No Is patient in pain?: No Allergies quetiapine fumarate [From Seroquel] Allergy (Verified 11/02/22 09:37) OtherSulfa (Sulfonamide Antibiotics) Adverse Reaction (Verified 11/02/22 09:37) Diarrhea Medications hydrochlorothiazide 25 mg tablet mg PO 10/17/22 [History Confirmed 11/02/22] pantoprazole 40 mg tablet,delayed release mg PO 10/17/22 [History Confirmed 11/02/22] buspirone 10 mg tablet 10 mg PO TID 11/01/22 [History Confirmed 11/02/22] clonazepam 0.5 mg tablet (Klonopin) 0.5 mg PO DAILY PRN anxiety #30 tabs 11/01/22 [Rx Confirmed 11/02/22] lisinopril 40 mg tablet 40 mg PO 11/01/22 [History Confirmed 11/02/22] metformin 500 mg tablet 1,000 mg PO BID 11/01/22 [History Confirmed 11/02/22] PFSH Medical History Acute otitis media, right Allergic dermatitis BPPV (benign paroxysmal positional vertigo) Carpal tunnel syndrome Diabetes type 2, controlled GERD (gastroesophageal reflux disease) Gout High blood pressure Pre-eclampsia, Tonsillolith Surgical History H/O dilation and curettage Family History Mother Arthritis Anxiety Fibromyalgia Depression HypertensionGrandfather Colon cancerFather Heart disease Hypertension Myocardial infarction Cancer lung/kidney Social History (Updated 10/17/22 @ 09:[address] 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 They are referred for surgical consultation from Dr. Acosta. Mrs. Barrett reports that the symptoms have plagued her for at least 15 years. She has raised attention to this issue again because the symptoms have become both more frequent and more severe. She notes that even if she misses taking her prescribed pantoprazole by few hours from her normal administration time (first thing in the morning) she will experience symptoms. She notes a particularly bad episode recently in response to fried chicken. She insist that she generally does not eat the sort of foods, but has previously had no difficulty with fried chicken. She does confirm that reflux is more frequently her issue than heartburn, but that she does experience both. She reports that sometimes her reflux has been so bad that she is vomited. They have attempted dietary modifications; eating at least 4 hours before bedtime and avoiding spicy or caffeinated foods. She also confirms that she is sleeping with her head propped. Mrs. Barrett confirms that she underwent EGD in 2011. She notes that she was found to have multiple ulcers at that time and was prescribed Nexium. She states this medication worked well, but she ultimately went off of this medication when it was not covered by insurance and instead went on generic omeprazole. She is not able to recall further details other than she was under a lot of life stressors at the time of this exam. Outside of the above issues, Mrs. Barrett reports that she is pending an ultrasound to look at her liver as she recently had lab work done demonstrating abnormal liver function testing. There is a strong concern for fatty liver disease. She reports that she will occasionally experience abdominal pain on her right side, but that this is infrequent. Concerning her weight Mrs. Barrett states that she has tried to lose weight for many years whether dieting or increasing her activity, but has remained stable at approximately 270 pounds for the last several years. She was told previously by her last primary care provider that she was not a candidate for bariatric surgery. Concerning her bowel movements, Mrs. Barrett reports that they are as normal as they can be on metformin and by this clarifies that she means that they are loose in consistency generally?speaking. She denies noting any blood. She reports a family history of colon cancer in her grandfather, but states that he was not diagnosed until well in the 60s. ROS General General: Yes weight change and fatigue; No appetite, colon cancer, breast cancer or weakness HEENT HEENT: No difficulty swallowing, eye injury, eye surgery, swollen glands or hoarseness Endo Endocrine: Yes diabetes mellitus; No thyroid disease, thyroid cancer, Hair loss, heat intolerance or cold intolerance Skin Skin: No rash or changing moles Breast Breast: No left breast lump, right breast lump, nipple discharge, breast pain, abnormal mammogram, abnormal US or breast enlargement Musc Musculoskeletal: No back problems, arthritis, rheumatoid arthritis, gout or joint pain Cardio Cardiovascular: Yes high blood pressure; No murmur, pacemaker, heart disease, atrial fibrillation, heart attack, heart stent, palpitations, shortness of breat with exertion or chest pain Psych Psychiatric: Yes depression and anxiety; No hearing voices Resp Respiratory: Yes shortness of breath, No sleep apnea, No cough, No COPD, No asthma, No emphysema and No wheezing Gastro Gastrointestinal: Yes abdominal pain, Yes nausea or vomiting, Yes diarrhea, No constipation, No blood in stool, Yes acid reflux, Yes hemorrhoids, Yes ulcers, Yes gallbladder problem and No black,tarry stools Rahat Hematologic: No blood thinners, No blood disorders, No bleeding, No anemia and No blood clots Neuro Neurologic: No system reviewed and no additional complaints, except as documented, No as per HPI, No abnormal gait, No abnormal hearing, No abnormal movements, No abnormal speech, No behavioral changes, No burning sensations, No confusion, No convulsions, No disequilibrium, No dizziness, No localized weakness, No frequent falls, No headache(s), No lack of coordination, No loss of vision, No memory loss, No numbness, No other visual disturbances, No radicular pain, No restless legs, No sensory deficit, No syncope, No tingling, No tremor(s), No weakness and No other Exam Const General: cooperative and no acute distress Nutritional Appearance: obese morbidly obese Orientation: alert, awake and oriented x3 Resp Effort & Inspection: normal respiratory effort GI Inspection: non-distended, obesity, no scars and no visible herniation Palpation: soft and tender in the RUQ (Mild); Daugherty's sign negative Assessment and Plan Assessment and Plan (1) GERD (gastroesophageal reflux disease): Status: Acute Qualifiers: Esophagitis presence: esophagitis presence not specified Qualified Code(s): K21.9 - Gastro-esophageal reflux disease without esophagitis Comment: Patient is a 37-year-old female with a longstanding history of GERD who presents for repeat evaluation given refractory symptoms despite chronic PPI use with pantoprazole. Patient has a history of EGD some 11 years ago, and was found to have evidence of gastritis and ulcers at that time. Given the frequency of her symptoms and the history of ulcers I do find it reasonable to pursue repeat EGD. I have shared with her some potential causes for her reflux?including a description of the anatomy and physiology around hiatal hernias. Unfortunately, given her BMI, Mrs. Barrett would not be a candidate for antireflux surgery and I therefore have raised the possibility of bariatric surgery. Mrs. Barrett states that she has some inclinations towards bariatric surgery but was previously told that she was not a candidate. I am unclear as to what would invalidate her from consideration based on the history I have been given. In fact, I believe she has many reasons to consider this given her clear evidence of metabolic syndrome with morbid obesity, type 2 diabetes, hypertension, and now probable NAFLD. She is a non-smoker and appears motivated to improve her health for her children (based on reports of dieting and increased activity). Plan: ? Diagnostic EGD at first mutually agreeable date. Patient informed that she will require a box truck driver the day of procedure. Biopsies, if done, will be delayed by roughly 48 business hours. ? Consider referral for bariatric surgery I have examined the patient the following changes are noted: Patient reports that she has started Trulicity for her diabetes and has had some increased indigestion. She also reports that she has met with bariatric surgery and this currently assigned an informational video to watch before further discussions are held. She denies any further questions to today's procedure so we will proceed to the endoscopy suite for planned EGD as discussed above.
--- NOTE | 2022-12-15 10:00 | IMM_PTH ---
PATIENT: DORY HENDERSON LOC: SID U#:[id number] AGE/SX: 37/F ROOM: RE12/15/[address]: Dr. Dave Medrano MD : 1985 BED: DIS: 12/15/2022 SPEC #: [id number] RECD: 12/15/22 14:25 STATUS: CAL RERegina #: [id number] ENDER: 12/15/22 10:[address]: Dave Medrano DEPT: IMMUNOHISTOCHEMISTRY RECD BY: Debo Coles ENTERED: 12/15/22 14:26 SP TYPE: IMMUNO OTHR DR: Dr. Cindy Acosta MD Tissues: A - Stomach, NOS Procedures: H Pylori (initial) PHYSICIAN & INSTITUTION [place] [address] SPECIMEN INFORMATION: Tissue Source: A - Antral biopsy Clinical Info: GERD Specimen Number: [id number] CPT code: 40597 METHODOLOGY: Deparaffinized sections of prefer/formalin-fixed tissue or PAP/DQ stained slides are incubated with monoclonal/polyclonal antibodies/oligonucleotide probes. Localization is made via biotin free immunoperoxidase method. Appropriate controls are performed and reacted as expected. Results on target cell population are indicated in the following table: RESULTS: ANTIBODY / CLONE RESULT Block A H Pylori (polyclonal) negative These tests were developed and their performance characteristics determined by [facility]. They may not have been cleared or approved by the U.S. Food and Drug Administration. The FDA has determined that such clearance or approval is not necessary. The above immunohistochemical/dualISH markers are ordered and reviewed by the Pathologist. INTERPRETATION: A. Antral biopsy: Negative for Helicobacter pylori organisms. SJ:ganesh 12/18/2022
--- NOTE | 2022-12-15 11:19 | OP.EGD_ITS ---
Patient Name: Cata Barrett Procedure Date: 12/15/2022 9:42 AM Date of : 1985 Age: 37 Procedure: Upper GI endoscopy Indications: Gastro-esophageal reflux disease Providers: Dave Medrano MD Referring MD: Cindy Acosta Md Medicines: See the Anesthesia note for documentation of the administered medications Patient Profile: Patient has symptoms of chronic regurgitation. Complications: No immediate complications. Estimated blood loss: Minimal. Procedure: Pre-Anesthesia Assessment: - The heart rate, respiratory rate, oxygen saturations, blood pressure, adequacy of pulmonary ventilation, and response to care were monitored throughout the procedure. After obtaining informed consent, the endoscope was passed under direct vision. Throughout the procedure, the patient's blood pressure, pulse, and oxygen saturations were monitored continuously. The gastroscope was introduced through the mouth, and advanced to the second part of duodenum. The upper GI endoscopy was accomplished without difficulty. The patient tolerated the procedure well. Scope In: 9:52:33 AM Scope Out: 10:10:07 AM Total Procedure Duration Time 0 hours 17 minutes 34 seconds Findings: The duodenal bulb, first portion of the duodenum and second portion of the duodenum were normal. No biopsies or other specimens were collected for this exam. Multiple 2 to 7 mm pedunculated and sessile polyps with no bleeding and no stigmata of recent bleeding were found in the cardia and in the gastric body. The polyp was removed with a hot snare. Resection and retrieval were complete. Estimated blood loss: none. Normal mucosa was found in the gastric antrum. Biopsies were taken with a cold forceps for Helicobacter pylori testing. Estimated blood loss was minimal. The Z-line was regular and was found 36 cm from the incisors. No biopsies or other specimens were collected for this exam. Multiple 2 to 5 mm mucosal papules (nodules) with no bleeding and no stigmata of recent bleeding were found in the gastric body. Biopsies were taken with a cold forceps for histology. Estimated blood loss was minimal. Impression: - Normal duodenal bulb, first portion of the duodenum and second portion of the duodenum. No specimens collected. - Multiple gastric polyps. Resected and retrieved. - Normal mucosa was found in the antrum. Biopsied. - Z-line regular, 36 cm from the incisors. No specimens collected. - Multiple mucosal papules (nodules) found in the stomach. Biopsied. Recommendation: - Discharge patient to home (via wheelchair). - Resume previous diet today. - Continue present medications. - Await pathology results. - Telephone my office for pathology results in 1 week. Procedure Code(s): --- Professional --- 09562, Esophagogastroduodenoscopy, flexible, transoral; with removal of tumor(s), polyp(s), or other lesion(s) by snare technique Diagnosis Code(s): --- Professional --- K31.7, Polyp of stomach and duodenum K31.89, Other diseases of stomach and duodenum K21.9, Gastro-esophageal reflux disease without esophagitis CPT copyright 2021 [employer]. All rights reserved. The codes documented in this report are preliminary and upon medical biller coder review may be revised to meet current compliance requirements. Dave Medrano MD 12/15/2022 11:18:17 AM This report has been signed electronically. Number of Addenda: 0 Note Initiated On: 12/15/2022 9:42 AM
--- NOTE | 2022-12-15 11:19 | OP.CCLET_ITS ---
12/15/2022 Cindy Acosta Md Re : Upper GI endoscopy procedure for Cata Barrett Dear Dave This procedure was performed on Thursday, December 15, 2022. My impressions and recommendations are as follows: Impressions : - Normal duodenal bulb, first portion of the duodenum and second portion of the duodenum. No specimens collected. - Multiple gastric polyps. Resected and retrieved. - Normal mucosa was found in the antrum. Biopsied. - Z-line regular, 36 cm from the incisors. No specimens collected. - Multiple mucosal papules (nodules) found in the stomach. Biopsied. Recommendations : - Discharge patient to home (via wheelchair). - Resume previous diet today. - Continue present medications. - Await pathology results. - Telephone my office for pathology results in 1 week. My findings are described in the full procedure note, which is enclosed. If I can be of further assistance, please feel free to contact me at Doctor phone number(s): , Work: . Sincerely, Dave Medrano MD 12/15/2022 11:18:17 AM This report has been signed electronically.
== END 2022-12-15 11:28 | disposition home or self-care (01) ==
LOC: EN 08:50 → AC 08:51
PROVIDERS: Anesthesiology; PCP Internal Medicine; Referring Provider Internal Medicine; Visit Provider Surgery
PROC: 0DJ08ZZ Inspection of Upper Intestinal Tract, Via Natural or Artificial Opening Endoscopic (ICD-10-PCS; CPT 43235; principal; 2022-12-15 09:55)
DX: K21.9 Gastro-esophageal reflux disease without esophagitis (principal); E11.9 Type 2 diabetes mellitus without complications; K31.7 Polyp of stomach and duodenum; I10 Essential (primary) hypertension; Z79.899 Other long term (current) drug therapy; Z79.84 Long term (current) use of oral hypoglycemic drugs; Z80.0 Family history of malignant neoplasm of digestive organs; K29.70 Gastritis, unspecified, without bleeding; K31.89 Other diseases of stomach and duodenum
CPT/HCPCS: 43239; 43251; 81025; 82962; 88305; 88342; J7120; J2405

== ENCOUNTER 2023-04-20 10:07 | Emergency (ER) | payer MEDICARE, MEDICAID, SELFPAY ==
[2023-04-20 10:08] VITALS: BP 130/97; PULSE 85; RESP 16; TEMP 36.3; O2SAT 97; BMI 44.1
--- NOTE | 2023-04-20 10:18 | RAD_ITS ---
STUDY: X-RAY - RIGHT HAND, ATTENTION THIRD FINGER REASON FOR EXAM: Female, 38 years old. INJURY TECHNIQUE: 3 view(s) of the finger were obtained. COMPARISON: None. FINDINGS: Normal metacarpal head. Normal metacarpophalangeal joint. Normal proximal phalanx. Findings suggestive of a nondisplaced avulsion fracture at the base of the middle phalanx along its volar aspect. Normal distal phalanx. Normal proximal interphalangeal joint. Normal distal interphalangeal joint. Diffuse soft tissue swelling. RAD/Finger(s) Min 2 Views IMPRESSION: Diffuse soft tissue swelling. Nondisplaced avulsion type fracture at the base of the middle phalanx of the third digit. Electronically Signed: Sony Brown MD at 10:53 EST ,
--- NOTE | 2023-04-20 10:23 | EDS_ITS ---
HPI History of Present Illness Chief Complaint: Upper Extremity Injury [facility] Medical History Acute otitis media, right Alcohol use Allergic dermatitis Anxiety Back pain BPPV (benign paroxysmal positional vertigo) Carpal tunnel syndrome Contact dermatitis Depression Diabetes Diabetes type 2, controlled Dietary restriction Fatty liver Gastric reflux GERD (gastroesophageal reflux disease) High blood pressure History of ulceration Hypertension Infestation by mites Migraine headache Non-smoker Pre-eclampsia, Shortness of breath on exertion Tonsillolith Wears glasses Home Medications metformin 1,000 mg tablet 1,000 mg PO BID #180 tabs 01/22/23 [Rx Last Taken Unknown] blood sugar diagnostic (OneTouch Verio test strips) #200 ea 02/14/23 [Rx Last Taken Unknown] pen needle, diabetic 32 gauge x 5/32 (BD Ultra-Fine Ivet Pen Needle) #100 ea 02/14/23 [Rx Last Taken Unknown] amlodipine 2.5 mg tablet 2.5 mg PO DAILY 03/15/23 [History Last Taken Unknown] buspirone 10 mg tablet 10 mg PO TID #90 tabs 03/15/23 [Rx Last Taken Unknown] clonazepam 0.5 mg tablet (Klonopin) 0.5 mg PO DAILY PRN anxiety #15 tabs 03/15/23 [Rx Last Taken Unknown] pantoprazole 40 mg tablet,delayed release 40 mg PO DAILY #30 tabs 03/15/23 [Rx Last Taken Unknown] Humulin N NPH Insulin KwikPen 100 unit/mL (3 mL) subcutaneous (insulin NPH isoph U-100 human) 30 unit (0.3 mL) subcut BID #60 mL 04/14/23 [Rx Last Taken Unknown] insulin lispro 100 unit/mL subcutaneous pen (Humalog KwikPen (U-100) Insulin) 15 unit (0.15 mL) subcut TID #45 mL 04/14/23 [Rx Last Taken Unknown] Allergy/AdvReac Type Severity Reaction Status Date / Time quetiapine fumarate Allergy Other Verified 04/20/23 10:08 [From Seroquel] exenatide AdvReac Intermediate Swelling Verified 04/20/23 10:08 [From Bydujordanon BCise] Sulfa (Sulfonamide AdvReac Diarrhea Verified 04/20/23 10:08 Antibiotics) Family History Mother Arthritis Anxiety Fibromyalgia Depression Hypertension Grandfather Colon cancer Father Heart disease Hypertension Myocardial infarction Cancer lung/kidney Surgical History History of esophagogastroduodenoscopy (EGD) History of hysteroscopy Social History adopted: No household members: spouse and children current occupational status: disabled 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 pets and animals: Yes Smoking Status: Never smoker Electronic Cigarette Use: not used alcohol intake: current alcohol intake frequency: holidays/special occasions only substance use type: does not use caffeine: Yes (3) Type: carbonated beverages what type of physical activity do you participate in: walking frequency: daily seatbelt use: always do you feel safe at home: Yes EXAM Physical Exam Const Vital Signs: 04/20/23 10:08 Temperature 97.4 F L Temperature Source Temporal Pulse Rate 85 Respiratory Rate 16 Blood Pressure 130/97 H Blood Pressure Mean 108 Pulse Ox 97 Oxygen Delivery Method Room Air MDM MDM MDM Narrative Medical decision making narrative: HISTORY OF PRESENT ILLNESS: 38-year-old female presents with finger pain. The patient [id number]. She states she was playing with her children and she injured her finger. She then notes several hours later she was doing the dishes and stubbed her finger. She presents today to make sure her finger is not broken. REVIEW OF SYSTEMS: Pertinent positives: Finger pain Pertinent negatives: Abdominal pain, vaginal bleeding, passing tissue, leakage of fluid PHYSICAL EXAM: Nursing triage notes reviewed, Vital signs reviewed Constitutional: please see mdm Lungs: Clear to auscultation, No wheezing or rales. No increased work of breathing, no conversational dyspnea, no accessory muscle use, no nasal flaring. No respiratory distress noted Heart: Regular rate and rhythm, No murmurs, No rubs and No gallops, 2+ distal pulses (radial, femoral, posterior tibial) in all extremities Extremities: No edema, there is swelling along the interphalangeal joint of the third digit. Decreased range of motion secondary to pain, no fusiform swelling, there is no obvious deformity. Neuro: Intact 5/5 strength with ok sign (median), intact finger abduction (ulnar) intact wrist extension (radial n). Intact sensation in the radial, ulnar, and median nerve distributions. Skin: Bruising noted over the interphalangeal joint MEDICAL DECISION MAKING: Chief Complaint: Finger pain External records reviewed: No recent advanced imaging of the involved extremity Factors affecting care: 6 weeks OB, type 2 diabetes, hypertension MDM Narrative: Patient was hemodynamically stable, afebrile, nontoxic-appearing. Exam with swelling and bruising over the interphalangeal joint of the third digit of the right hand. I considered the following differential diagnosis: Finger contusion, fracture dislocation X-ray of the finger was obtained via protocol orders by triage nurse. ALL IMAGES (IF OBTAINED) HAVE BEEN PERSONALLY REVIEWED AND INTERPRETED BY MYSELF. X-ray was read reviewed myself shows evidence of likely fracture of the base of the middle phalanx of the third digit of the right hand. There is no indication for casting, treatment is jose e taping, ice Tylenol and follow-up with her primary care physician. The patient and/or family, caregivers express understanding. The patient and/or family, caregivers agrees with the plan. Shared decision making: I will have a discussion with the patient and or visitors regarding risk/benefits of further testing or admission. They will be made aware of of the risk/benefits inherent in this decision they will be given the opportunity to voice understanding. Total critical care time today provided was at least 0 minutes. This excludes separately billable procedures. Critical care time (if documented) is secondary to the patient having high probability of clinically significant/life threatening deterioration in the patient's condition which required my urgent intervention. Impression: 1. Finger fracture Dispo: Discharge This note was generated with mAPPn dictation software. It may contain incorrect words, spelling, and punctuation that were not noted in review of the chart prior to signing. Discharge Plan Triage Chief Complaint: Upper Extremity Injury ED Provider: Rui Herron Dx/Rx/DC Orders Instructions: ED Fracture, Finger, Closed Prescriptions: No Action amlodipine 2.5 mg tablet 2.5 mg PO DAILY clonazepam [Klonopin] 0.5 mg tablet 0.5 mg PO DAILY PRN (Reason: anxiety) Qty: 15 0RF (DME) OneTouch Verio test strips Strip See Rx Instructions .Route Qty: 200 5RF Rx Instructions: 4x/day (DME) pen needle, diabetic [BD Ultra-Fine Ivet Pen Needle] 32 gauge x 5/32 needle See Rx Instructions .Route Qty: 100 5RF Rx Instructions: daily metformin 1,000 mg tablet 1,000 mg PO BID Qty: 180 1RF buspirone 10 mg tablet 10 mg PO TID Qty: 90 2RF pantoprazole 40 mg tablet,delayed release (DR/EC) 40 mg PO DAILY Qty: 30 2RF insulin lispro [Humalog KwikPen Insulin] 100 unit/mL insulin pen 15 unit subcut TID Qty: 45 1RF Humulin N NPH Insulin KwikPen 100 unit/mL (3 mL) insulin pen 30 unit subcut BID Qty: 60 1RF Primary Care Provider: Cindy Acosta Referrals: Cindy Acosta MD [Primary Care Provider] - Sharad Watts MD [Med Staff - Active Staff] - Activity Restrictions/Additional Instructions: Thank you for trusting us with your care today! Please take Tylenol (2 pills, 650 mg), ibuprofen (2 pills, 400 mg) every 6 hours as needed for pain and fever control. Please ice your finger regularly. Please use splint as been provided as well as jose e taping to provide support. Fractures typically heal within 4 to 6 weeks Please return to the emergency department if your symptoms change or worsen. Please follow with your primary care physician for further outpatient evaluation and management. Disposition Disposition: Home, Self Care Discharge Date/Time: 04/20/23 11:13
[2023-04-20 11:10] VITALS: BP 112/82; PULSE 71; RESP 16; TEMP 36.7; O2SAT 98
--- OUTSIDE RECORDS SUMMARY | 2023-04-20 11:30 | XMS RPT_ITS | CCD ---
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 Name Role Phone ZULEYKA LOCO, DR FREY Primary Care Physician NIKITA LOCO, GEORGE Kumar Attending Unavailable ZULEYKA LOCO, DR FREY Primary Care Unavailable NIKITA LOCO, GEORGE Kumar Consulting Unavailable NIKITA LOCO, GEORGE Kumar Attending Lidia GARDINER MD, DR FREY Primary Care Unavailable NIKITA LOCO, GEORGE Kumar Attending Unavailable ZULEYKA LOCO, DR FREY Primary Care Unavailable NIKITA LOCO, GEORGE Kumar Consulting Unavailable NIKITA LOCO, GEORGE Kumar Attending Lidia GARDINER MD, DR FREY Primary Care Unavailable NIKITA LOCO, GEORGE Kumar Attending Lidia GARDINER MD, DR FREY Primary Care Unavailable Allergies Allergy Classification Reported Allergen(s) Allergy Type Date of Onset Reaction(s) Facility (18 sources) QUEtiapine; Translations: [quetiapine] Drug Allergy [facility] (18 sources) Sulfonamides (Antibiotic); Translations: [sulfa drugs] Drug allergy [facility] Medications Current Medications Medication Drug Class(es) Dates Sig (Normalized) Sig (Original) Aspirin (11 sources) Platelet Aggregation Inhibitor, Nonsteroidal Anti-inflammatory Drug Start: 02-02-2020 busPIRone hydrochloride 10 mg oral tablet (1 source) Start: 01-04-2023 busPIRone 10 mg oral tablet Dose : 10 mg = 1 tab(s), Oral, TID, # 270 tab(s), 0 Refill(s) Start Date: 01/04/23 Status: Ordered clonazePAM 0.5 mg oral tablet (1 source) Benzodiazepine Start: 01-04-2023 take 1 tablet by mouth once daily for anxiety clonazePAM 0.5 mg oral tablet take 1 tablet by mouth daily if needed for anxiety Start Date: 01/04/23 Status: Ordered 0.5 ml dulaglutide 1.5 mg/ml auto-injector (1 source) GLP-1 Receptor Agonist Start: 01-04-2023 inject 0.5 mL by subcutaneous injection every week Trulicity Pen 0.75 mg/0.5 mL subcutaneous solution inject 0.5 milliliters subcutaneously every week Start Date: 01/04/23 Status: Ordered DULoxetine 60 mg delayed release oral capsule (2 sources) Serotonin and Norepinephrine Reuptake Inhibitor Start: 06-01-2022 take 1 capsule by mouth once daily DULoxetine 60 mg oral delayed release capsule take 1 capsule by mouth once daily Start Date: 06/01/22 Status: Ordered ferrous sulfate 325 mg oral tablet (1 source) Start: 04-13-2021 ferrous sulfate 325 mg (65 mg elemental iron) oral tablet Dose : 325 mg = 1 tab(s), Oral, BID, # 60 tab(s), 1 Refill(s), Pharmacy: [facility], 162.6, cm, 04/11/21 9:07:00 EST, Height, kg, 04/11/21 9:07:00 EST, Dosing Weight Start Date: 04/13/21 Status: Ordered glipiZIDE 5 mg oral tablet (2 sources) Sulfonylurea Start: 11-15-2020 End: 09-11-2021 glipiZIDE 5 mg oral tablet Dose : 10 mg = 2 tab(s), Oral, BID, # 120 tab(s), 5 Refill(s), Pharmacy: [facility], 154, cm, 12/20/20 11:19:00 EDT, Height, kg, 09/13/20 9:16:00 EDT, Dosing Weight Start Date: 12/20/20 Stop Date: 06/18/21 Status: Ordered HumaLOG KwikPen 100 units/mL injectable PEN (9 sources) Start: 02-17-2021 inject 1 dose by subcutaneous injection three times daily at dinner HumaLOG KwikPen 100 units/mL injectable PEN Dose : 15 unit(s) =, inject 15 units subcutaneously three times a day WITH BREAKFAST, LUNCH AND DINNER Start Date: 02/17/21 Status: Ordered Completed/Discontinued Medications Medication Drug Class(es) Dates Sig (Normalized) Sig (Original) acetaminophen 300 mg / butalbital 50 mg / caffeine 40 mg oral capsule (17 sources) Barbiturate, Central Nervous System Stimulant, Methylxanthine Start: 02-02-20 End: 02-09-20 take 1 capsule by mouth every four hours as needed for headache, then take 6 capsules by mouth once daily as needed for headache Fioricet oral capsule - use generic Fioricet tablet Dose = 1 cap(s), Oral, q4h, PRN Headache, not to exceed 6 capsules/day, # 30 cap(s), 1 Refill(s) Start Date: 02/02/20 Stop Date: 02/09/20 Status: Ordered hydroCHLOROthiazide 25 mg oral tablet (8 sources) Thiazide Diuretic Start: 08-30-19 End: 08-25-19 hydroCHLOROthiazide 25 mg oral tablet Dose : 25 mg = 1 tab(s), Oral, qDay, # 90 tab(s), 3 Refill(s), [facility] [address] [address] [address], cm, 08/29/21 9:35:00 EDT, Height Start Date: 08/29/21 Stop Date: 08/24/22 Status: Ordered Problems Active Problems Problem Classification Problem Date Documented Da te Episodic/Chronic Diabetes or abnormal glucose tolerance complicating ; childbirth; or the puerperium (20 sources) Gestational diabetes mellitus; Translations: [Gestational diabetes mellitus, class A>1<] Onset: 04-11-2021 01-28-2020 Episodic Essential hypertension (18 sources) Hypertensive disorder 06-17-2020 Chronic Hypertension complicating ; childbirth and the puerperium (8 sources) Pre-existing hypertension complicating , childbirth and puerperium; Translations: [Pre-existing essential hypertension complicating the puerperium] Onset: 04-11-2021 Chronic Menstrual disorders (2 sources) Irregular periods 08-03-2022 Chronic Other complications of ; puerperium affecting management of mother (1 source) Anemia during the puerperium; Translations: [Anemia of the puerperium] Onset: 04-13-2021 Chronic Other complications of ; puerperium affecting management of mother (1 source) Retained placenta, without hemorrhage; Translations: [Retained placenta without hemorrhage] Onset: 04-13-2021 Episodic Other complications of (1 source) Finding related to ; Translations: [Other specified related conditions, unspecified trimester] Onset: 04-13-2021 Episodic Other female genital disorders (4 sources) Polyp of vagina 01-19-2022 Episodic Other nervous system disorders (6 sources) Carpal tunnel syndrome 10-03-2021 Chronic Other and delivery including normal (20 sources) Normal ; Translations: [ care status] Onset: 07-22-2020 09-27-2020 Episodic Past or Other Problems Problem Classification Problem Date Documented Date Episodic/Chronic Contraceptive and procreative management (11 sources) Contraception ; Translations: [Intrauterine contraceptive device in situ] Onset: 06-01-2022 10-03-2021 Episodic Results Test Name Value Interpretation Reference Range Facil ity Vital Signs Date Time Vital Sign Value Performing Clinician Faci lity 04-13-2021 09:30-0500 Body temperature 98.96 [degF] ESTRADA GONCALVES MD [facility] 04-13-2021 09:30-0500 Diastolic blood pressure 88 mm[Hg] ESTRADA GONCALVES MD [facility] 04-13-2021 09:30-0500 Heart rate 100 /min ESTRADA GONCALVES MD [facility] 04-13-2021 09:30-0500 Respiratory rate 18 /min ESTRADA GONCALVES MD [facility] 04-13-2021 09:30-0500 Systolic blood pressure 133 mm[Hg] ESTRADA GONCALVES MD [facility] 04-12-2021 23:00-0500 Diastolic blood pressure 72 mm[Hg] ESTRADA GONCALVES MD [facility] 04-12-2021 23:00-0500 Mean blood pressure 93 mm[Hg] ESTRADA GONCALVES MD [facility] 04-12-2021 23:00-0500 Systolic blood pressure 135 mm[Hg] ESTRADA GONCALVES MD [facility] 04-12-2021 21:27-0500 Diastolic blood pressure 73 mm[Hg] ESTRADA GONCALVES MD [facility] 04-12-2021 21:27-0500 Heart rate 104 /min ESTRADA GONCALVES MD [facility] 04-12-2021 21:27-0500 Mean blood pressure 97 mm[Hg] ESTRADA GONCALVES MD [facility] 04-12-2021 21:27-0500 Respiratory rate 18 /min ESTRADA GONCALVES MD [facility] 04-12-2021 21:27-0500 Systolic blood pressure 144 mm[Hg] ESTRADA GONCALVES MD [facility] 04-12-2021 15:53-0500 Body temperature 98.24 [degF] ESTRADA GONCALVES MD [facility] 04-12-2021 15:53-0500 Mean blood pressure 95 mm[Hg] ESTRADA GONCALVES MD [facility] 04-12-2021 10:33-0500 Body temperature 97.52 [degF] ESTRADA GONCALVES MD [facility] 04-12-2021 10:21-0500 Diastolic Blood Pressure NBP 87 1 ESTRADA GONCALVES MD [facility] 04-12-2021 10:21-0500 Systolic Blood Pressure NBP 151 1 ESTRADA GONCALVES MD [facility] 04-12-2021 10:15-0500 Diastolic Blood Pressure NBP 72 1 ESTRADA GONCALVES MD [facility] 04-12-2021 10:15-0500 Systolic Blood Pressure NBP 131 1 ESTRADA GONCALVES MD [facility] 04-12-2021 10:10-0500 Diastolic Blood Pressure NBP 70 1 ESTRADA GONCALVES MD [facility] 04-12-2021 10:10-0500 Systolic Blood Pressure NBP 119 1 ESTRADA GONCALVES MD [facility] 04-12-2021 09:26-0500 Body temperature 97.34 [degF] ESTRADA GONCALVES MD [facility] 04-12-2021 04:22-0500 Body temperature 98.6 [degF] ESTRADA GONCALVES MD [facility] 04-11-2021 09:07-0500 Body height 162.6 cm ESTRADA GONCALVES MD [facility] 04-11-2021 09:07-0500 Body weight 127.3 kg ESTRADA GONCALVES MD [facility] 04-11-2021 09:07-0500 Body weight 48.15 kg/m2 ESTRADA GONCALVES MD [facility] 04-04-2021 02:01-0500 Diastolic blood pressure 68 mm[Hg] CORDELL MCCLENDON MD [facility] 04-04-2021 02:01-0500 Heart rate 96 /min CORDELL MCCLENDON MD [facility] 04-04-2021 02:01-0500 Mean blood pressure 85 mm[Hg] CORDELL MCCLENDON MD [facility] 04-04-2021 02:01-0500 Respiratory rate 20 /min CORDELL MCCLENDON MD [facility] 04-04-2021 02:01-0500 Systolic blood pressure 119 mm[Hg] CORDELL MCCLENDON MD [facility] 04-04-2021 01:46-0500 Diastolic blood pressure 60 mm[Hg] CORDELL MCCLENDON MD [facility] 04-04-2021 01:46-0500 Heart rate 101 /min CORDELL MCCLENDON MD [facility] 04-04-2021 01:46-0500 Mean blood pressure 82 mm[Hg] CORDELL MCCLENDON MD [facility] 04-04-2021 01:46-0500 Respiratory rate 20 /min CORDELL MCCLENDON MD [facility] 04-04-2021 01:46-0500 Systolic blood pressure 127 mm[Hg] CORDELL MCCLENDON MD [facility] 04-04-2021 01:31-0500 Diastolic blood pressure 84 mm[Hg] CORDELL MCCLENDON MD [facility] 04-04-2021 01:31-0500 Heart rate 105 /min CORDELL MCCLENDON MD [facility] 04-04-2021 01:31-0500 Mean blood pressure 104 mm[Hg] CORDELL MCCLENDON MD [facility] 04-04-2021 01:31-0500 Respiratory rate 21 /min CORDELL MCCLENDON MD [facility] 04-04-2021 01:31-0500 Systolic blood pressure 143 mm[Hg] CORDELL MCCLENDON MD [facility] 04-04-2021 01:25-0500 Body temperature 98.78 [degF] CORDELL MCCLENDON MD [facility] 04-04-2021 01:15-0500 Body height 162.6 cm CORDELL MCCLENDON MD [facility] 04-04-2021 01:15-0500 Body weight 125.5 kg CORDELL MCCLENDON MD [facility] 04-04-2021 01:15-0500 Body weight 47.47 kg/m2 CORDELL MCCLENDON MD [facility] 03-28-2021 12:10-0500 Diastolic blood pressure 79 mm[Hg] GEORGE SHELTON MD [facility] 03-28-2021 12:10-0500 Heart rate 87 /min GEORGE SHELTON MD [facility] 03-28-2021 12:10-0500 Mean blood pressure 97 mm[Hg] GEROGE SHELTON MD [facility] 03-28-2021 12:10-0500 Systolic blood pressure 132 mm[Hg] GEORGE SHELTON MD [facility] 03-28-2021 12:05-0500 Diastolic blood pressure 77 mm[Hg] GEORGE SHELTON MD [facility] 03-28-2021 12:05-0500 Heart rate 83 /min GEORGE SHELTON MD [facility] 03-28-2021 12:05-0500 Mean blood pressure 98 mm[Hg] GEORGE SHELTON MD [facility] 03-28-2021 12:05-0500 Systolic blood pressure 141 mm[Hg] GEORGE SHELTON MD [facility] 03-28-2021 11:25-0500 Diastolic blood pressure 76 mm[Hg] GEORGE SHELTON MD [facility] 03-28-2021 11:25-0500 Heart rate 85 /min GEORGE SHELTON MD [facility] 03-28-2021 11:25-0500 Mean blood pressure 92 mm[Hg] GEORGE SHELTON MD [facility] 03-28-2021 11:25-0500 Systolic blood pressure 125 mm[Hg] GEORGE SHELTON MD [facility] 03-21-2021 15:49-0500 Diastolic blood pressure 84 mm[Hg] GEORGE SHELTON MD [facility] 03-21-2021 15:49-0500 Heart rate 88 /min GEORGE SHELTON MD [facility] 03-21-2021 15:49-0500 Mean blood pressure 103 mm[Hg] GEORGE SHELTON MD [facility] 03-21-2021 15:49-0500 Respiratory rate 16 /min GEORGE SHELTON MD [facility] 03-21-2021 15:49-0500 Systolic blood pressure 140 mm[Hg] GEORGE SHELTON MD [facility] 03-21-2021 15:30-0500 Diastolic blood pressure 83 mm[Hg] GEORGE SHELTON MD [facility] 03-21-2021 15:30-0500 Heart rate 94 /min GEORGE SHELTON MD [facility] 03-21-2021 15:30-0500 Mean blood pressure 103 mm[Hg] GEORGE SHELTON MD [facility] 03-21-2021 15:30-0500 Respiratory rate 18 /min GEORGE SHELTON MD [facility] 03-21-2021 15:30-0500 Systolic blood pressure 144 mm[Hg] GEORGE SHELTON MD [facility] 03-21-2021 15:26-0500 Body temperature 96.98 [degF] GEORGE SHELTON MD [facility] 03-21-2021 15:26-0500 Diastolic blood pressure 88 mm[Hg] GEORGE SHELTON MD [facility] 03-21-2021 15:26-0500 Heart rate 94 /min GEORGE SHELTON MD [facility] 03-21-2021 15:26-0500 Mean blood pressure 109 mm[Hg] GEORGE SHELTON MD [facility] 03-21-2021 15:26-0500 Respiratory rate 18 /min GEORGE SHELTON MD [facility] 03-21-2021 15:26-0500 Systolic blood pressure 150 mm[Hg] GEORGE SHELTON MD [facility] 03-14-2021 17:27-0500 Body temperature 98.06 [degF] ESTRADA GONCALVES MD [facility] 03-14-2021 17:27-0500 Diastolic blood pressure 68 mm[Hg] ESTRADA GONCALVES MD [facility] 03-14-2021 17:27-0500 Heart rate 76 /min ESTRADA GONCALVES MD [facility] 03-14-2021 17:27-0500 Mean blood pressure 90 mm[Hg] ESTRADA GONCALVES MD [facility] 03-14-2021 17:27-0500 Respiratory rate 18 /min ESTRADA GONCALVES MD [facility] 03-14-2021 17:27-0500 Systolic blood pressure 133 mm[Hg] ESTRADA GONCALVES MD [facility] Encounters Encounter Date Encounter Type Care Provider Facility Start: 04-16-2023 ambulatory GEORGE SHELTON MD Facili ty:B Start: 01-04-2023 End: 01-05-2023 ambulatory GEORGE SHELTON MD Facility:B Start: 01-04-2023 End: 01-08-2023 Outreach Lab GEORGE SHELTON MD [facility] Start: 08-03-2022 End: 08-04-2022 ambulatory GEORGE SHELTON MD Facility:B Start: 08-03-2022 End: 08-03-2022 Patient encounter procedure GEORGE SHELTON MD [facility] Start: 06-01-2022 End: 06-06-2022 ambulatory GEORGE SHELTON MD Facility:B Start: 06-01-2022 End: 06-06-2022 Encounter for gynecological examination (general) (routine) without abnormal findings GEORGE SHELTON MD Facility:B Start: 06-01-2022 End: 06-05-2022 Outreach Lab GEORGE SHELTON MD [facility] Start: 01-19-2022 End: 01-23-2022 Outreach Lab GEORGE SHELTON MD [facility] Start: 01-10-2022 End: 01-14-2022 Outreach Lab CORDELL MCCLENDON MD [facility] Start: 12-01-2021 End: 12-05-2021 Outreach Lab GEORGE SHELTON MD [facility] Start: 04-11-2021 End: 04-13-2021 Evaluation and management of inpatient ESTRADA GONCALVES MD [facility] Start: 04-04-2021 End: 04-08-2021 Outreach Lab GEORGE SHELTON MD [facility] Start: 04-04-2021 End: 04-04-2021 Patient encounter procedure GEORGE SHELTON MD [facility] Start: 04-04-2021 End: 04-04-2021 SAME DAY STAY CORDELL MCCLENDON MD [facility] Start: 03-28-2021 End: 03-28-2021 SAME DAY STAY GEORGE SHELTON MD [facility] Start: 03-28-2021 End: 03-28-2021 Patient encounter procedure MERON CHAVARRIA 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 [facility] Start: 03-22-2021 End: 03-26-2021 Outreach Lab ESTRADA GONCALVES MD [facility] Start: 03-21-2021 End: 03-21-2021 SAME DAY STAY GEORGE SHELTON MD [facility] Start: 03-17-2021 End: 03-17-2021 Patient encounter procedure GEORGE SHELTON MD [facility] Start: 03-14-2021 End: 03-14-2021 SAME DAY STAY ESTRADA GONCALVES MD [facility] Start: 01-10-2021 End: 01-10-2021 Patient encounter procedure GEORGE SHELTON MD [facility] Start: 12-13-2020 End: 12-13-2020 Patient encounter procedure GEORGE SHELTON MD [facility] Procedures Date Procedure Procedure Detail Performing Clinician Start: 04-12-2021 Dilation and curetta ge of uterus after delivery ESTRADA GONCALVES MD Start: 04-04-2011 Colonoscopy GEORGE Hull MD None (qualifier value) GEORGE SHELTON MD Immunizations Immunization Date Immunization Notes Care Provider [facility] 04-28-2020 tetanus toxoid, redu nicol diphtheria toxoid, and acellular pertussis vaccine, adsorbed; Translations: [Boostrix (Tdap)] GEORGE SHELTON MD [facility] Payers Date Payer Category Payer Private Health Insurance [id number] 1987 Unknown [id number] [id number] 1987 Unknown [id number] [id number] 1987 Unknown [id number] [id number] 1987 Unknown [id number] [id number] 1987 Unknown [id number] [id number] [id number] Social History Date Type Detail Facility Start: 01-28-2020 Never smoked t obsofiya (finding) [facility] Sex Assigned At Female [facility] Clinical Notes 03-14-2021 to 01-06-2023 LaboratoryLaboratoryLaboratoryLaboratoryLaboratoryRadiologyLaboratoryRadiologyLa boratoryRadiologyLaboratoryRadiologyLaboratoryRadiologyLaboratoryRadiologyLabora toryRadiologyLaboratoryLaboratory Note Date & Type Note Facility 01-06-2023 Note . MICRO - Microbiology PROCEDURE: Affirm Pathogens DNA Direct Probe [*1] SOURCE: Vaginal Fluid BODY SITE: Vagina COLLECTED DATE/TIME: 01/04/2023 11:12 EDT RECEIVED DATE/TIME: 01/05/2023 21:10 EDT START DATE/TIME: 01/05/2023 21:10 EDT FREE TEXT SOURCE: FINAL REPORTS Final Report [] Verified Date/Time/Personnel: 01/06/2023 16:56 EDT Jodie species DNA Probe Negative Gardnerella vaginalis DNA Probe Negative Trichomonas vaginalis DNA Probe Negative Performing Locations *1: This test was performed at: [facility], [address] [place] [address], [facility] , [facility] ([place]) 01-04-2023 Evaluation + Plan note Future Scheduled TestsHIV 03/06 Ab 01/04/23 [facility] 08-03-2022 Evaluation + Plan note Diagnostic Tests PendingEstrogen, Fractionated Blood 08/03/22Testosterone, Free and Total 08/03/22 Future Scheduled TestsThyroid Stimulating Hormone 08/29/21Free T4 08/29/21A1C Hemoglobin 08/29/21Complete Blood Count 08/29/21Free T3 08/29/21Lipid Profile 08/29/21Complete Metabolic Panel 08/29/21 [facility] 06-01-2022 Evaluation + Plan note Future Scheduled TestsPathology Paperhanger Pipe Request 06/01/22Thyroid Stimulating Hormone 08/29/21Free T4 08/29/21A1C Hemoglobin 08/29/21Complete Blood Count 08/29/21Free T3 08/29/21Lipid Profile 08/29/21Complete Metabolic Panel 08/29/21 [facility] 04-11-2021 Hospital Discharge instructions Patient Education 04/11/2021 21:12:45 7b- Depression and Blues (12/2019)(CUSTOM) [place] Depression and Blues All mothers are at risk of developing depression or the blues. These mood changes can occur right after giving , or they may occur many months after giving . blues or depression can be mild or severe. Additionally, depression can go away rather quickly, or it can be a long-term condition. CAUSES Raised hormone levels and the rapid drop in those levels are thought to be a main cause of depression and blues. A number of hormones change during and after . Estrogen and progesterone usually decrease right after delivery. The levels of thyroid hormone and various cortisol steroids also rapidly drop. Other factors that play a role in these mood changes include major life events and genetics. RISK FACTORS If you have any of the following risks for blues or depression, know what symptoms to watch out for during the period. Risk factors that may increase the likelihood of getting blues or depression include: Having a personal or family history of depression. Having depression while being . Having premenstrual mood issues or mood issues related to oral contraceptives. Having a lot of life stress. Having marital conflict. Lacking a social support network. Having health problems, such as diabetes. SIGNS AND SYMPTOMS Symptoms of blues include: Brief changes in mood, such as going from extreme happiness to sadness. Decreased concentration. Difficulty sleeping. Crying spells, tearfulness. Irritability. Anxiety. Symptoms of depression typically begin within the first month after giving . These symptoms include: Difficulty sleeping or excessive sleepiness. Marked weight loss. Agitation. Feelings of worthlessness. Lack of interest in activity or food. psychosis is a very serious condition and can be dangerous. Fortunately, it is rare. Displaying any of the following symptoms is cause for immediate medical attention. Symptoms of psychosis include: Hallucinations and delusions. Bizarre or disorganized behavior. Confusion or disorientation. DIAGNOSIS A diagnosis is made by an evaluation of your symptoms. There are no medical or lab tests that lead to a diagnosis, but there are various questionnaires that a health care provider may use to identify those with blues, depression, or psychosis. Often, a screening tool called the [place] Depression Scale is used to diagnose depression in the period. TREATMENT blues usually goes away on its own in 1 2 weeks. Social support is often all that is needed. You will be encouraged to get adequate sleep and rest. Occasionally, you may be given medicines to help you sleep. depression requires treatment because it can last several months or longer if it is not treated. Treatment may include individual or group therapy, medicine, or both to address any social, physiological, and psychological factors that may play a role in the depression. Regular exercise, a healthy diet, rest, and social support may also be strongly recommended. psychosis is more serious and needs treatment right away. Hospitalization is often needed. HOME CARE INSTRUCTIONS Get as much rest as you can. Exercise regularly. Some women find yoga and walking to be beneficial. Eat a balanced and nourishing diet. Do little things that you enjoy. Have a cup of tea, take a bubble bath, read your favorite magazine, or listen to your favorite music. Avoid alcohol. Ask for help with assembly line robot operator, cooking, grocery shopping, or running errands as needed. Do not try to do everything. Talk to people close to you about how you are feeling. Get support from your partner, family members, and friends. Try to stay positive in how you think. Think about the things you are grateful for. Do not spend a lot of time alone. Only take [id number] or prescription medicine as directed by your health care provider. Keep all your appointments. Let your health care provider know if you have any concerns. SEEK MEDICAL CARE IF: You are having a reaction to or problems with your medicine. SEEK IMMEDIATE MEDICAL CARE IF: You have suicidal feelings. You think you may harm yourself or someone else. MAKE SURE YOU: Understand these instructions. Will watch your condition. Will get help right away if you are not doing well or get worse. Resource: [facility] Patient Information 2015 [facility]. This information is not intended to replace advice given to you by your health care provider. Make sure you discuss any questions you have with your health care provider. 04/11/2021 21:12:35 Hypertension Hypertension Hypertension, commonly called high blood pressure, is when the force of blood pumping through your arteries is too strong. Your arteries are the blood vessels that carry blood from your heart throughout your body. A blood pressure reading consists of a higher number over a lower number, such as 110/72. The higher number (systolic) is the pressure inside your arteries when your heart pumps. The lower number (diastolic) is the pressure inside your arteries when your heart relaxes. Ideally you want your blood pressure below 120/80. Hypertension forces your heart to work harder to pump blood. Your arteries may become narrow or stiff. Having hypertension puts you at risk for heart disease, stroke, and other problems. RISK FACTORS Some risk factors for high blood pressure are controllable. Others are not. Risk factors you cannot control include: Race. You may be at higher risk if you are . Age. Risk increases with age. Gender. Men are at higher risk than women before age 45 years. After age 65, women are at higher risk than men. Risk factors you can control include: Not getting enough exercise or physical activity. Being overweight. Getting too much fat, sugar, calories, or salt in your diet. Drinking too much alcohol. SIGNS AND SYMPTOMS Hypertension does not usually cause signs or symptoms. Extremely high blood pressure (hypertensive crisis) may cause headache, anxiety, shortness of breath, and nosebleed. DIAGNOSIS To check if you have hypertension, your health care provider will measure your blood pressure while you are seated, with your arm held at the level of your heart. It should be measured at least twice using the same arm. Certain conditions can cause a difference in blood pressure between your right and left arms. A blood pressure reading that is higher than normal on one occasion does not mean that you need treatment. If one blood pressure reading is high, ask your health care provider about having it checked again. TREATMENT Treating high blood pressure includes making lifestyle changes and possibly taking medication. Living a healthy lifestyle can help lower high blood pressure. You may need to change some of your habits. Lifestyle changes may include: Following the DASH diet. This diet is high in fruits, vegetables, and whole grains. It is low in salt, red meat, and added sugars. Getting at least 2 1/2 hours of brisk physical activity every week. Losing weight if necessary. Not smoking. Limiting alcoholic beverages. Learning ways to reduce stress. If lifestyle changes are not enough to get your blood pressure under control, your health care provider may prescribe medicine. You may need to take more than one. Work closely with your health care provider to understand the risks and benefits. HOME CARE INSTRUCTIONS Have your blood pressure rechecked as directed by your health care provider. Only take medicine as directed by your health care provider. Follow the directions carefully. Blood pressure medicines must be taken as prescribed. The medicine does not work as well when you skip doses. Skipping doses also puts you at risk for problems. Do not smoke. Monitor your blood pressure at home as directed by your health care provider. SEEK MEDICAL CARE IF: You think you are having a reaction to medicines taken. You have recurrent headaches or feel dizzy. You have swelling in your ankles. You have trouble with your vision. SEEK IMMEDIATE MEDICAL CARE IF: You develop a severe headache or confusion. You have unusual weakness, numbness, or feel faint. You have severe chest or abdominal pain. You vomit repeatedly. You have trouble breathing. MAKE SURE YOU: Understand these instructions. Will watch your condition. Will get help right away if you are not doing well or get worse. Document Released: 02/19/2006 Document Revised: 02/24/2014 Document Reviewed: 12/12/2013 [facility] Patient Information 2015 [facility]. This information is not intended to replace advice given to you by your health care provider. Make sure you discuss any questions you have with your health care provider. 04/11/2021 21:12:12 Vaginal Delivery, Care After Vaginal Delivery, Care After Refer to this sheet in the next few weeks. These instructions provide you with information about caring for yourself after vaginal delivery. Your health care provider may also give you more specific instructions. Your treatment has been planned according to current medical practices, but problems sometimes occur. Call your health care provider if you have any problems or questions. What can I expect after the procedure? After vaginal delivery, it is common to have: Some bleeding from your vagina. Soreness in your abdomen, your vagina, and the area of skin between your vaginal opening and your anus (perineum). Pelvic cramps. Fatigue. Follow these instructions at home: Medicines Take bcwy-qtl-ylebzob and prescription medicines only as told by your health care provider. If you were prescribed an antibiotic medicine, take it as told by your health care provider. Do not stop taking the antibiotic until it is finished. Driving Do not drive or operate heavy machinery while taking prescription pain medicine. Do not drive for 24 hours if you received a sedative. Lifestyle Do not drink alcohol. This is especially important if you are or taking medicine to relieve pain. Do not use tobacco products, including cigarettes, chewing tobacco, or e-cigarettes. If you need help quitting, ask your health care provider. Eating and drinking Drink at least 8 eight-ounce glasses of water every day unless you are told not to by your health care provider. If you choose to breastfeed your baby, you may need to drink more water than this. Eat high-fiber foods every day. These foods may help prevent or relieve constipation. High-fiber foods include: ?Whole grain cereals and breads. ?Brown rice. ?Beans. ?Fresh fruits and vegetables. Activity Return to your normal activities as told by your health care provider. Ask your health care provider what activities are safe for you. Rest as much as possible. Try to rest or take a nap when your baby is sleeping. Do not lift anything that is heavier than your baby or 10 lb (4.5 kg) until your health care provider says that it is safe. Talk with your health care provider about when you can engage in sexual activity. This may depend on your: ?Risk of infection. ?Rate of healing. ?Comfort and desire to engage in sexual activity. Vaginal Care If you have an episiotomy or a vaginal tear, check the area every day for signs of infection. Check for: ?More redness, swelling, or pain. ?More fluid or blood. ?Warmth. ?Pus or a bad smell. Do not use tampons or douches until your health care provider says this is safe. Watch for any blood clots that may pass from your vagina. These may look like clumps of dark red, brown, or black discharge. General instructions Keep your perineum clean and dry as told by your health care provider. Wear loose, comfortable clothing. Wipe from front to back when you use the toilet. Ask your health care provider if you can shower or take a bath. If you had an episiotomy or a perineal tear during labor and delivery, your health care provider may tell you not to take baths for a certain length of time. Wear a bra that supports your breasts and fits you well. If possible, have someone help you with household activities and help care for your baby for at least a few days after you leave the hospital. Keep all follow-up visits for you and your baby as told by your health care provider. This is important. Contact a health care provider if: You have: ?Vaginal discharge that has a bad smell. ?Difficulty urinating. ?Pain when urinating. ?A sudden increase or decrease in the frequency of your bowel movements. ?More redness, swelling, or pain around your episiotomy or vaginal tear. ?More fluid or blood coming from your episiotomy or vaginal tear. ?Pus or a bad smell coming from your episiotomy or vaginal tear. ?A fever. ?A rash. ?Little or no interest in activities you used to enjoy. ?Questions about caring for yourself or your baby. Your episiotomy or vaginal tear feels warm to the touch. Your episiotomy or vaginal tear is or does not appear to be healing. Your breasts are painful, hard, or turn red. You feel unusually sad or worried. You feel nauseous or you vomit. You pass large blood clots from your vagina. If you pass a blood clot from your vagina, save it to show to your health care provider. Do not flush blood clots down the toilet without having your health care provider look at them. You urinate more than usual. You are dizzy or light-headed. You have not breastfed at all and you have not had a menstrual period for 12 weeks after delivery. You have stopped and you have not had a menstrual period for 12 weeks after you stopped . Get help right away if: You have: ?Pain that does not go away or does not get better with medicine. ?Chest pain. ?Difficulty breathing. ?Blurred vision or spots in your vision. ?Thoughts about hurting yourself or your baby. You develop pain in your abdomen or in one of your legs. You develop a severe headache. You faint. You bleed from your vagina so much that you fill two sanitary pads in one hour. This information is not intended to replace advice given to you by your health care provider. Make sure you discuss any questions you have with your health care provider. Document Released: 02/16/2001 Document Revised: 08/02/2016 Document Reviewed: 03/05/2016 [employer] Patient Education 2019 [employer]. Follow Up Care 04/11/2021 08:39:57 With:GEORGE SHELTON Address: [address] [place] [phone] Business (1) When:Within 5 Day(s) Comments:for blood pressure check With:GEORGE SHELTON MD Address: [address] [place] [phone] When: Unknown Comments:please schedule a visit for 3 weeks post delivery [facility] 04-04-2021 Hospital Discharge instructions Patient Education 04/04/2021 02:22:18 [place] [facility] Outpatient Instructions (AORN) [facility] HOME-GOING INSTRUCTIONS _X_ You are to follow up with your physician in am as scheduled. ACTIVITY ___ Bedrest _x__Activity as tolerated ___ No work/school for ___ days. ___Other PRESCRIPTION GIVEN ___Yes NAUSEA/VOMITING ___ Take small, frequent amounts of clear liquids. Avoid fruit juices and milk. ___ Increase fluid intake to a minimum of 8 ounces of fluid every hour while awake. ___ Soft diet. Rice, crackers, bananas, Jell-O, cooked carrots, applesauce. ___ [place] diet. Avoid caffeine, chocolate, alcohol, spiced/greasy foods. URINARY TRACT INFECTION ___ Drink 8-12 glasses of water every day. ___ Urinate frequently; do not limit fluids to reduce frequency of urination. ___ Call your physician if burning and frequency with urination returns after taking all your medication. ___ Call your physician if you have a temperature of 100.4 degrees Fahrenheit or higher. ___ Wipe from front to back. SIGNS OF PRE-ECLAMPSIA ___ Severe heartburn. __x_ Persistent headache not relieved by Tylenol. __x_ Increased in swelling of face, hands and feet. __x_ Blurred vision, double vision, or spots in the eyes. __x_ Persistent vomiting. ___ *Convulsions or seizures. LABOR ___ Restrict activity. ___ Drink 8-12 glasses of water every day. ___ Urinate frequently ___ Pelvic rest. No sexual intercourse/ Call your physician if you experience: _x__ Increase in vaginal discharge, leaking fluid, or vaginal bleeding. ___ More than 4, 5, or 6 contractions in one hour. __x_ Burning and frequency with urination. DECREASED MOVEMENT __x_ Lie down on your left side, drink some fluids and relax. Count the movements. You need to have 10 movements in 2 hours. _x__ If you do not feel the 10 movements, call your physician. OTHER ___ After an exam you may experience some spotting or discharge. As long as it is not bright red and heavy like a period or continues to leak as if your water broke, it is to be expected. ___ LABOR Call your physician if you experience: ___ Painful uterine contractions every ___ minutes for ___ hours. ___A gush or continuous trickle of watery discharge. COME TO THE HOSPITAL AND CALL PHYSICIAN IF: __x_ Your abdomen feels continually firm. _x__ *Bleeding is bright red and enough to saturate a pad in one hour or less. *Call 911 or go to the nearest Emergency Room for assistance. Form [id number] D: 02/10 Follow Up Care 04/04/2021 01:07:42 With:Follow up with primary care provider Address: When: Unknown Comments:pt has appt this am for US and office visit [facility] 03-28-2021 Hospital Discharge instructions Patient Education 03/28/2021 12:12:04 7 - Labor and Delivery Outpatient Instructions (CUSTOM) [facility] HOME-GOING INSTRUCTIONS _X_ You are to follow up with your physician in ___ days/weeks. ACTIVITY ___ Bedrest __x_Activity as tolerated ___ No work/school for ___ days. _x__Other _take it easy PRESCRIPTION GIVEN ___Yes NAUSEA/VOMITING ___ Take small, frequent amounts of clear liquids. Avoid fruit juices and milk. ___ Increase fluid intake to a minimum of 8 ounces of fluid every hour while awake. ___ Soft diet. Rice, crackers, bananas, Jell-O, cooked carrots, applesauce. ___ [place] diet. Avoid caffeine, chocolate, alcohol, spiced/greasy foods. URINARY TRACT INFECTION ___ Drink 8-12 glasses of water every day. ___ Urinate frequently; do not limit fluids to reduce frequency of urination. ___ Call your physician if burning and frequency with urination returns after taking all your medication. ___ Call your physician if you have a temperature of 100.4 degrees Fahrenheit or higher. ___ Wipe from front to back. SIGNS OF PRE-ECLAMPSIA _x__ Severe heartburn. _x__ Persistent headache not relieved by Tylenol. __x_ Increased in swelling of face, hands and feet. _x__ Blurred vision, double vision, or spots in the eyes. _x__ Persistent vomiting. _x__ *Convulsions or seizures. LABOR ___ Restrict activity. ___ Drink 8-12 glasses of water every day. ___ Urinate frequently ___ Pelvic rest. No sexual intercourse/ Call your physician if you experience: __x_ Increase in vaginal discharge, leaking fluid, or vaginal bleeding. __x_ More than 4, 5, or 6 contractions in one hour. __x_ Burning and frequency with urination. DECREASED MOVEMENT __x_ Lie down on your left side, drink some fluids and relax. Count the movements. You need to have 10 movements in 2 hours. _x__ If you do not feel the 10 movements, call your physician. OTHER ___ After an exam you may experience some spotting or discharge. As long as it is not bright red and heavy like a period or continues to leak as if your water broke, it is to be expected. ___ LABOR Call your physician if you experience: _x__ Painful uterine contractions every _6__ minutes for __1_ hours. _x__A gush or continuous trickle of watery discharge. COME TO THE HOSPITAL AND CALL PHYSICIAN IF: __x_ Your abdomen feels continually firm. __x_ *Bleeding is bright red and enough to saturate a pad in one hour or less. *Call 911 or go to the nearest Emergency Room for assistance. Form [id number] D: 02/10 Document Released: 02/19/2006 Document Revised: 02/08/2012 Document Reviewed: 02/19/2006 [facility] Patient Information 2012 [employer]. [facility] 03-21-2021 Hospital Discharge instructions Patient Education 03/21/2021 16:15:55 7 - Labor and Delivery Outpatient Instructions(CUSTOM) [facility] HOME-GOING INSTRUCTIONS _X_ You are to follow up with your physician in ___ days/weeks. ACTIVITY ___ Bedrest _X__Activity as tolerated ___ No work/school for ___ days. ___Other PRESCRIPTION GIVEN ___Yes NAUSEA/VOMITING ___ Take small, frequent amounts of clear liquids. Avoid fruit juices and milk. ___ Increase fluid intake to a minimum of 8 ounces of fluid every hour while awake. ___ Soft diet. Rice, crackers, bananas, Jell-O, cooked carrots, applesauce. ___ [place] diet. Avoid caffeine, chocolate, alcohol, spiced/greasy foods. URINARY TRACT INFECTION ___ Drink 8-12 glasses of water every day. _X__ Urinate frequently; do not limit fluids to reduce frequency of urination. _X__ Call your physician if burning and frequency with urination returns after taking all your medication. _X__ Call your physician if you have a temperature of 100.4 degrees Fahrenheit or higher. _X__ Wipe from front to back. SIGNS OF PRE-ECLAMPSIA _X__ Severe heartburn. _X__ Persistent headache not relieved by Tylenol. _X__ Increased in swelling of face, hands and feet. _X__ Blurred vision, double vision, or spots in the eyes. _X__ Persistent vomiting. _X__ *Convulsions or seizures. LABOR ___ Restrict activity. __X_ Drink 8-12 glasses of water every day. __X_ Urinate frequently ___ Pelvic rest. No sexual intercourse/ Call your physician if you experience: _X__ Increase in vaginal discharge, leaking fluid, or vaginal bleeding. _X__ More than 4, 5, or 6 contractions in one hour. _X__ Burning and frequency with urination. DECREASED MOVEMENT _X__ Lie down on your left side, drink some fluids and relax. Count the movements. You need to have 10 movements in 2 hours. _X__ If you do not feel the 10 movements, call your physician. OTHER _X__ After an exam you may experience some spotting or discharge. As long as it is not bright red and heavy like a period or continues to leak as if your water broke, it is to be expected. ___ LABOR Call your physician if you experience: _X__ Painful uterine contractions every _5_ minutes for _24__ hours. _X__A gush or continuous trickle of watery discharge. COME TO THE HOSPITAL AND CALL PHYSICIAN IF: _X__ Your abdomen feels continually firm. _X__ *Bleeding is bright red and enough to saturate a pad in one hour or less. *Call 911 or go to the nearest Emergency Room for assistance. Form [id number] D: 02/10 Document Released: 02/19/2006 Document Revised: 02/08/2012 Document Reviewed: 02/19/2006 [facility] Patient Information 2012 [employer]. 03/21/2021 16:14:07 24-Hour Urine Collection 24-Hour Urine Collection A 24-hour urine specimen is a lab test that requires collection of all your urine for an entire day. This is sometimes called a timed urine test. It can provide more information than a single urine sample. There are many reasons to have this test. Your health care provider may order the test to check for or monitor the following conditions: High blood pressure. Kidney disease. Kidney stones. Urinary tract infections. . Diabetes. How do I prepare for this test? You may be asked to follow a special diet during or before the collection period. Follow any instructions from your health care provider. If no special instructions are given, you may eat and drink normally. Take jutw-kth-jmrpaii and prescription medicines only as told by your health care provider. Let your health care provider know about any medicines that you are taking, including agwo-qif-tkxwhnb medicines, vitamins, herbs, and supplements. Choose a collection day when you can be at home or when you have a place to store the urine. All urine must be collected during the testing period. How do I do a 24-hour urine collection? When you get up in the morning, urinate in the toilet and flush. Write down the time. This will be your start time on the day of collection and your end time on the next morning. From the start time on, all of your urine should be kept in the collection jug that you received from the lab. If the jug that is given to you already has liquid in it, that is okay. Do not throw out the liquid or rinse out the jug. Some tests need the liquid to be added to your urine. Urinate into a specimen container, such as a urinal or rosales that sits over the toilet. Pour the urine from the container into the collection jug. Be careful not to spill any of the urine. Use the equipment provided by the lab. Do not let any toilet paper or stool (feces) get into the jug. This will contaminate the sample. Stop collecting your urine 24 hours after you started. Collect the last specimen as close as possible to the end of the 24-hour period. Keep the jug cool in an ice chest or keep it in the refrigerator during collection. When the 24-hour collection is complete, bring the jug to the lab. Keep the jug cool in an ice chest while you are bringing it to the lab. What do the results mean? Talk with your health care provider about what your results mean. Questions to ask your health care provider Ask your health care provider, or the department that is doing the test: When will my results be ready? How will I get my results? What are my treatment options? What other tests do I need? What are my next steps? Summary A 24-hour urine specimen is a lab test that requires collection of all your urine for an entire day. When you get up in the morning, urinate in the toilet and flush. Write down the time. For the next 24 hours, collect all of your urine in the collection jug that you received from the lab. Keep the jug cool while collecting the urine and while bringing it back to the lab. Take the jug of urine back to the lab as soon as possible after the collection period has ended. This information is not intended to replace advice given to you by your health care provider. Make sure you discuss any questions you have with your health care provider. Document Released: 05/18/2009 Document Revised: 06/09/2019 Document Reviewed: 03/04/2018 [employer] Patient Education 2020 [employer] Follow Up Care 03/21/2021 15:20:51 With:GEORGE SHELTON MD Address: [phone] When:03/31/2021 16:13:00 [facility] 03-17-2021 Evaluation + Plan note Future Scheduled TestsAntibody Screen Gel 03/17/21Type and Screen (AO) 03/17/21Thyroid Stimulating Hormone 08/29/21Free T4 08/29/21A1C Hemoglobin 08/29/21Complete Blood Count 08/29/21Free T3 08/29/21Lipid Profile 08/29/21Complete Metabolic Panel 08/29/21 [facility] 03-14-2021 Hospital Discharge instructions Patient Education 03/14/2021 17:59:10 7 - Labor and Delivery Outpatient Instructions (CUSTOM) [facility] HOME-GOING INSTRUCTIONS _X_ You are to follow up with your physician in ___ days/weeks. ACTIVITY ___ Bedrest ___Activity as tolerated ___ No work/school for ___ days. ___Other PRESCRIPTION GIVEN ___Yes NAUSEA/VOMITING ___ Take small, frequent amounts of clear liquids. Avoid fruit juices and milk. ___ Increase fluid intake to a minimum of 8 ounces of fluid every hour while awake. ___ Soft diet. Rice, crackers, bananas, Jell-O, cooked carrots, applesauce. ___ [place] diet. Avoid caffeine, chocolate, alcohol, spiced/greasy foods. URINARY TRACT INFECTION ___ Drink 8-12 glasses of water every day. ___ Urinate frequently; do not limit fluids to reduce frequency of urination. ___ Call your physician if burning and frequency with urination returns after taking all your medication. ___ Call your physician if you have a temperature of 100.4 degrees Fahrenheit or higher. ___ Wipe from front to back. SIGNS OF PRE-ECLAMPSIA ___ Severe heartburn. ___ Persistent headache not relieved by Tylenol. ___ Increased in swelling of face, hands and feet. ___ Blurred vision, double vision, or spots in the eyes. ___ Persistent vomiting. ___ *Convulsions or seizures. LABOR ___ Restrict activity. ___ Drink 8-12 glasses of water every day. ___ Urinate frequently ___ Pelvic rest. No sexual intercourse/ Call your physician if you experience: ___ Increase in vaginal discharge, leaking fluid, or vaginal bleeding. ___ More than 4, 5, or 6 contractions in one hour. ___ Burning and frequency with urination. DECREASED MOVEMENT ___ Lie down on your left side, drink some fluids and relax. Count the movements. You need to have 10 movements in 2 hours. ___ If you do not feel the 10 movements, call your physician. OTHER ___ After an exam you may experience some spotting or discharge. As long as it is not bright red and heavy like a period or continues to leak as if your water broke, it is to be expected. ___ LABOR Call your physician if you experience: ___ Painful uterine contractions every ___ minutes for ___ hours. ___A gush or continuous trickle of watery discharge. COME TO THE HOSPITAL AND CALL PHYSICIAN IF: ___ Your abdomen feels continually firm. ___ *Bleeding is bright red and enough to saturate a pad in one hour or less. *Call 911 or go to the nearest Emergency Room for assistance. Form 517368 D: 02/10 Document Released: 02/19/2006 Document Revised: 02/08/2012 Document Reviewed: 02/19/2006 [employer] Patient Information 2012 [employer]. Follow Up Care 03/14/2021 17:16:13 With:GEORGE SHELTON MD Address: [phone] When: Unknown Comments:Follow-up as scheduled [facility] Evaluation + Plan note Future Appointments Appointment Date:12/16/2020 11:00:00 AM Scheduled Provider:GEORGE SHELTON MD Location:[facility] Appointment Type: OV OB Routine Follow Up Future Scheduled TestsPrenatal Panel (AO) 09/27/20Prenatal Panel (AO) 10/18/20Glucose 1 Hour Challenge 09/27/20Thyroid Stimulating Hormone 09/27/20Urine Culture 09/27/20A1C Hemoglobin 09/27/20Hepatitis C Antibody IgG 09/27/20Varicella Zoster Antibody 09/27/20US OB < 14 weeks 09/21/20 [facility] Evaluation + Plan note Future Appointments Appointment Date:01/17/2021 09:30:00 AM Scheduled Provider:GEORGE SHELTON MD Location:[facility] Appointment Type: OV OB Routine Follow Up Future Scheduled TestsPrenatal Panel (AO) 09/27/20Prenatal Panel (AO) 10/18/20Glucose 1 Hour Challenge 09/27/20Thyroid Stimulating Hormone 09/27/20Urine Culture 09/27/20A1C Hemoglobin 09/27/20Hepatitis C Antibody IgG 09/27/20Varicella Zoster Antibody 09/27/20US OB < 14 weeks 09/21/20 [facility] Evaluation + Plan note Future Appointments Appointment Date:03/17/2021 09:00:00 AM Scheduled Provider:GEORGE SHELTON MD Location:[facility] Appointment Type:[facility] OB Routine Follow Up Future Scheduled TestsPrenatal Panel (AO) 09/27/20Prenatal Panel (AO) 10/18/20Glucose 1 Hour Challenge 09/27/20Thyroid Stimulating Hormone 09/27/20Urine Culture 09/27/20A1C Hemoglobin 09/27/20Hepatitis C Antibody IgG 09/27/20Varicella Zoster Antibody 09/27/20US OB < 14 weeks 09/21/20 [facility] Evaluation + Plan note Future Appointments Appointment Date:03/31/2021 09:15:00 AM Scheduled Provider:GEORGE SHELTON MD Location:[facility] Appointment Type: OV OB Routine Follow Up Future Scheduled TestsPrenatal Panel (AO) 09/27/20Prenatal Panel (AO) 10/18/20Antibody Screen Gel 03/17/21Type and Screen (AO) 03/17/21Glucose 1 Hour Challenge 09/27/20Thyroid Stimulating Hormone 09/27/20Urine Culture 09/27/20A1C Hemoglobin 09/27/20Hepatitis C Antibody IgG 09/27/20Varicella Zoster Antibody 09/27/20US OB < 14 weeks 09/21/20 [facility] Evaluation + Plan note Future Appointments Appointment Date:03/31/2021 09:15:00 AM Scheduled Provider:GEORGE SHELTON MD Location:[facility] Appointment Type: OV OB Routine Follow Up Diagnostic Tests [id number] Urine Total Protein (AO) 03/21/21 Future Scheduled TestsPrenatal Panel (AO) 09/27/20Prenatal Panel (AO) 10/18/20Antibody Screen Gel 03/17/21Type and Screen (AO) 03/17/21Glucose 1 Hour Challenge 09/27/20Thyroid Stimulating Hormone 09/27/20Urine Culture 09/27/20A1C Hemoglobin 09/27/20Hepatitis C Antibody IgG 09/27/20Varicella Zoster Antibody 09/27/20US OB < 14 weeks 09/21/20 [facility] Evaluation + Plan note Future Appointments Appointment Date:03/28/2021 10:30:00 AM Scheduled Provider: Location:[facility] Appointment Type:US OB W/Biophysical Profile Appointment Date:03/31/2021 09:15:00 AM Scheduled Provider:GEORGE SHELTON MD Location:[facility] Appointment Type:[facility] OB Routine Follow Up Future Scheduled TestsPrenatal Panel (AO) 09/27/20Prenatal Panel (AO) 10/18/20Antibody Screen Gel 03/17/21Type and Screen (AO) 03/17/21Glucose 1 Hour Challenge 09/27/20Thyroid Stimulating Hormone 09/27/20Urine Culture 09/27/20A1C Hemoglobin 09/27/20Hepatitis C Antibody IgG 09/27/20Varicella Zoster Antibody 09/27/20US OB < 14 weeks 09/21/20US OB W/Biophysical Profile 03/28/21 [facility] Evaluation + Plan note Future Appointments Appointment Date:04/25/2021 09:00:00 AM Scheduled Provider:GEORGE SHELTON MD Location:[facility] Appointment Type: OV Future Scheduled TestsPrenatal Panel (AO) 09/27/20Prenatal Panel (AO) 10/18/20Antibody Screen Gel 03/17/21Type and Screen (AO) 03/17/21Glucose 1 Hour Challenge 09/27/20Thyroid Stimulating Hormone 09/27/20Urine Culture 09/27/20A1C Hemoglobin 09/27/20Hepatitis C Antibody IgG 09/27/20Varicella Zoster Antibody 09/27/20US OB < 14 weeks 09/21/20 [facility] Evaluation + Plan note Future Appointments Appointment Date:12/12/2021 09:00:00 AM Scheduled Provider:GEORGE SHELTON MD Location:[facility] Appointment Type: OV Annual Exam Appointment Date:12/26/2021 09:45:00 AM Scheduled Provider:GEORGE SHELTON MD Location:[facility] Appointment Type: OV Future Scheduled TestsAntibody Screen Gel 03/17/21Type and Screen (AO) 03/17/21Thyroid Stimulating Hormone 08/29/21Free T4 08/29/21A1C Hemoglobin 08/29/21Complete Blood Count 08/29/21Free T3 08/29/21Lipid Profile 08/29/21Complete Metabolic Panel 08/29/21 [facility] Evaluation + Plan note Future Appointments Appointment Date:06/01/2022 09:30:00 AM Scheduled Provider:GEORGE SHELTON MD Location:[facility] Appointment Type: OV Annual Exam Future Scheduled TestsAntibody Screen Gel 03/17/21Type and Screen (AO) 03/17/21Thyroid Stimulating Hormone 08/29/21Free T4 08/29/21A1C Hemoglobin 08/29/21Complete Blood Count 08/29/21Free T3 08/29/21Lipid Profile 08/29/21Complete Metabolic Panel 08/29/21 [facility] Hospital course Narrative No data available for this section [facility] Hospital Discharge instructions No data available for this section [facility] Progress note No data available for this section [facility] Summary Purpose Family History No Family History Records FoundNo Family History Records Found No data available for this section No Family History Records Found Advance Directives No Advanced Directives Records FoundNo Advanced Directives Records FoundNo Advanced Directives Records Found Additional Source Comments INFORMATION SOURCE (unrecogn ized section and content) DATE CREATED AUTHOR AUTHOR'S ORGANIZ ATION 12/16/2022 [facility] DATE CREATED AUTHOR AUTHOR'S ORGANIZ ATION 04/17/2023 [facility] Care Team (unrecognized sect ion and content) Care Team Personnel Name: SHANTE GARDINER MD Member Role: Primary Care Physician Address: Address: [address] [place] [address] Care Team Related Persons Name: NKECHI CABRALES Address: Home [address] [place] [address] Name: RICARDO CABRALES Name: BECCA CABRALES Address: Home [address] [place] [address] Care Team Personnel Name: SHANTE GARDINER MD Member Role: Primary Care Physician Address: Address: [address] [place] [address] Care Team Related Persons Name: NKECHI CABRALES Address: Home [address] [place] [address] Name: RICARDO CABRALES Name: BECCA CABRALES Address: Home [address] [place] [address] Care Team Personnel Name: SHANTE GARDINER MD Member Role: Primary Care Physician Address: Address: [address] [place] [address] Care Team Related Persons Name: NKECHI CABRALES Address: Home [address] [place] [address] Name: RICARDO CABRALES Name: BECCA CABRALES Address: Home [address] [place] [address] Patient Care team informatio n (unrecognized section and content) Care Team Personnel Name: SHANTE GARDINER MD Member Role: Primary Care Physician Address: Address: [address] [place] [address] Care Team Related Persons Name: NKECHI CABRALES Address: Home [address] [place], [place] [phone] Name: CABRALES RICARDO Opal Name: CABRALESBECCA TOLEDO Address: [place] [phone] Care Team Personnel Name: SHANTE GARDINER MD Member Role: Primary Care Physician Address: Address: [address] [place] [address] Care Team Related Persons Name: NKECHI CABRALES Address: Home [address] [place], [place] [phone] Name: RICARDO CABRALES Name: BECCA CABRALES R Address: [place] [address] Care Team Personnel Name: SHANTE GARDINER MD Member Role: Primary Care Physician Address: Address: [address] [place] [address] Care Team Related Persons Name: NKECHI CABRALES Address: [place] [phone] Name: CABRALES RICARDO Opal Name: BECCA CABRALES Address: [place] [phone] FOR RECORDS PERTAINING TO PATIENTS WHO ARE OR HAVE BEEN ENROLLED IN A CHEMICAL DEPENDENCY/SUBSTANCEABUSE PROGRAM, SOME INFORMATION MAY BE OMITTED. This clinical summary was aggregated from multiple sources. Caution should be exercised in using it in the provision of clinical care. This summary normalizes information from multiple sources, and as a consequence, information in this document may materially change the coding, format and clinical context of patient data. In addition, data may be omitted in some cases. CLINICAL DECISIONS SHOULD BE BASED ON THE PRIMARY CLINICAL RECORDS. [facility]. provides no warranty or guarantee of the accuracy or completeness of information in this document.
== END 2023-04-20 11:13 | disposition home or self-care (01) ==
PROVIDERS: Emergency Provider Emergency Medicine; PCP Internal Medicine; Visit Provider Emergency Medicine
DX: S62.652A Nondisplaced fracture of middle phalanx of right middle finger, initial encounter for closed fracture (principal); E11.9 Type 2 diabetes mellitus without complications; Z79.4 Long term (current) use of insulin; I10 Essential (primary) hypertension; X58.XXXA Exposure to other specified factors, initial encounter; Y93.G1 Activity, food preparation and clean up; Z79.84 Long term (current) use of oral hypoglycemic drugs; Z79.899 Other long term (current) drug therapy; F41.9 Anxiety disorder, unspecified; K21.9 Gastro-esophageal reflux disease without esophagitis
CPT/HCPCS: 73140; 99283

== ENCOUNTER → 2023-06-26 | Outpatient (CLI) | payer MEDICARE, MEDICAID, SELFPAY ==
--- NOTE | 2023-06-26 11:33 | RAD_ITS ---
STUDY: X-RAY - RIGHT ANKLE REASON FOR EXAM: Female, 38 years old. Fall. Pain. TECHNIQUE: 3 view(s) of the ankle. COMPARISON: None. FINDINGS: Superior and inferior calcaneal spurs. Irregular corticated fragment below the lateral malleolus most compatible with separate ossification center. Normal tibiotalar and subtalar joints. Normal soft tissues. RAD/Ankle min 3 Views IMPRESSION: Calcaneal spurs with no acute abnormality. Electronically Signed: Arnold Michaud MD at 10:07 EDT ,
--- NOTE | 2023-06-26 11:37 | RAD_ITS ---
STUDY: X-RAY - RIGHT FOOT CLINICAL: Female, 38 years old. Fall. Pain. TECHNIQUE: 3 view(s) of the foot. COMPARISON: None. FINDINGS: Superior and inferior calcaneal spurs. Normal visualized subtalar, talonavicular, calcaneocuboid, tarsal and tarsometatarsal articulations. Normal metatarsi. Normal metatarsophalangeal joint of the great toe. Normal tibial and fibular sesamoid bones. Normal interphalangeal joint of the great toe. Normal phalanges of the great toe. Normal second through fifth metatarsophalangeal joints. Normal interphalangeal joints and phalanges of the lesser toes. The soft tissue structures are normal. RAD/Foot min 3 Views IMPRESSION: Calcaneal spurs with no other abnormality. Electronically Signed: Arnold Michaud MD at 10:08 EDT ,
== END | disposition home or self-care (01) ==
PROVIDERS: PCP Internal Medicine; Referring Provider Internal Medicine; Visit Provider Internal Medicine
DX: M25.571 Pain in right ankle and joints of right foot (principal)
CPT/HCPCS: 73610; 73630

== ENCOUNTER → 2023-09-12 | Outpatient (CLI) | payer MEDICARE, MEDICAID, SELFPAY ==
[2023-09-12 12:20] LABS: Vitamin D,25 Hydroxy 29.1 ng/mL
[2023-09-12 12:23] LABS: Absolute Lymphocyte Count 2.39 X10^3/uL (0.83-4.51); Absolute Neutrophil Count 12.4 X10^3/uL (2.0-7.7); Basophil# 0.06 X10^3/uL; Basophil% 0.4 % (0-1); Eosinophil# 0.18 X10^3/uL; Eosinophils% 1.1 % (0-5); Hemoglobin 11.4 g/dL (12.0-15.0); Lymphocyte # 2.39 X10^3/ul (0.83-4.51); Lymphocyte % 15.1 % (19-41); Mean Corp Hgb Conc 32.6 g/dL (32-36); Mean Corpuscular Hgb 27.5 pg (27.0-32.0); Mean Corpuscular Volume 84.5 fL (81-99); Mean Platelet Vol. 10.6 fl (6.2-12.0); Monocyte# 0.71 X10^3/uL; Monocyte% 4.5 % (0-10); NRBC Flagged by Analyzer 0 % (0-5); Neutrophil # 12.37 X10^3/uL (2.7-7.7); Platelet Count 242 K/mm3 (150-450); RBC Distribution Width CV 13.6 % (11.6-14.6); RBC Distribution Width SD 42.3 fl (35.1-43.9); Red Blood Count 4.14 M/mm3 (4.2-5.4); White Blood Count 15.9 K/mm3 (4.4-11.0)
[2023-09-12 12:31] LABS: ALB/GLOB Ratio 0.7 RATIO (0.9-2.4); AST(SGOT) 11 U/L (15-37); Alanine Aminotransfer ALT/SGPT 14 U/L (13-56); Albumin, Serum 2.7 g/dL (3.2-5.0); Alkaline Phosphatase 100 U/L (45-117); Anion Gap 6 (5-15); BUN 9 mg/dL (7-18); BUN/Creat Ratio 16.8 RATIO (10-20); Calcium,Total 8.6 mg/dL (8.5-10.1); Chloride 105 mmol/L (98-107); Cholesterol 181 mg/dL (200); Creatinine, Serum 0.54 mg/dL (0.55-1.02); EST Glomerular Filtration Rate 136 mL/min (>60); Est Glom Filt Rate - Afr Amer 165 mL/min (>60); Globulin 3.8 g/dL (2.2-4.2); Glucose 86 mg/dL (74-106); High Density Lipoprotein 60 mg/dL; Potassium 3.8 mmol/L (3.5-5.1); Protein, Total 6.5 g/dL (6.4-8.2); Sodium Level 136 mmol/L (136-145); Triglycerides 195 mg/dL; Very Low Density Lipoprotein 39 mg/dL (5-40)
[2023-09-12 12:56] LABS: Microalbumin,Random Urine 6.7 mg/L (NO RANGE EST.); Microalbumin:Creatinine Ratio 6.2 mg/g CRE (<30 mg/g CRE)
== END | disposition home or self-care (01) ==
LOC: BIMLAB 09:32
PROVIDERS: PCP Internal Medicine; Referring Provider Internal Medicine; Visit Provider Internal Medicine
DX: Z32.01 Encounter for pregnancy test, result positive (principal); E11.9 Type 2 diabetes mellitus without complications; E55.9 Vitamin D deficiency, unspecified
CPT/HCPCS: 36415; 80053; 80061; 82043; 82306; 82570; 85025

== ENCOUNTER 2023-12-12 11:17 | Observation (INO) | payer MEDICARE, MEDICAID, SELFPAY ==
[2023-12-11] VITALS (39 sets, daily range): BP systolic 157–209; BP diastolic 77–124; PULSE 75–124; RESP 14–18; TEMP 36–37.3; O2SAT 85–100; BMI 48.1; BMI 48.0
--- NOTE | 2023-12-11 18:24 | EDS_ITS ---
HPI History of Present Illness Chief Complaint: Hypertension Narrative Narrative: Chief complaint and HPI: Hypertension, with headache. 38-year-old female who is G4, P0 and 5 days presents for evaluation of headache and hypertension. Patient states she is 5 days from a vaginal delivery. No complications in her or delivery. Patient states she developed a headache today. She states she thought it was secondary to fatigue. She took her blood pressure at home and it was elevated. Patient states her headache did not improve and retook her blood pressure. Blood pressure was still high. She called her OB Dr. Hernandez from [place] and he recommended evaluation in the ER. She denies any blurry vision, lightheadedness, chest pain, shortness of breath, abdominal pain, nausea, vomiting. Has mild vaginal bleeding. Does endorse some bilateral breast tenderness and redness. She states she is not breast-feeding or pumping. She denies any fever. Headache does not improve with lying down. She did receive an epidural. She denies any back pain. Review of systems: See HPI Medications: As listed on the chart Allergies: As listed on the chart PFSH: Per chart Vital signs: As listed on the chart. Reviewed. Physical exam: Gen: A&O x3, NAD Head: Normocephalic, atraumatic Eyes: No sclera icterus, conjunctiva clear, PERRL, EOMI ENT: Moist mucous membranes Neck: Trachea midline, No JVD CV: RRR, no murmurs, no peripheral edema Breast: Large breasts with mild erythema and fullness, engorged with milk, clear milk easily expressed by bilateral nipples Resp: Lungs CTA BL, no w/r/c GI: Abd soft, non-distended, non-tender, no r/r/g Musc: Full ROM, no deformity Skin: Warm, dry Neuro: Alert, oriented, grossly intact, sensation intact Psych: Cooperative, appropriate mood and affect [facility] Medical History History of depression Earache, left Wears glasses Depression Anxiety Alcohol use Diabetes Fatty liver Back pain Migraine headache Dietary restriction History of ulceration Gastric reflux Non-smoker Shortness of breath on exertion Hypertension Infestation by mites Contact dermatitis Carpal tunnel syndrome Acute otitis media, right Tonsillolith Allergic dermatitis GERD (gastroesophageal reflux disease) Diabetes type 2, controlled High blood pressure BPPV (benign paroxysmal positional vertigo) Pre-eclampsia, Home Medications ?Medication ?Instructions ?Recorded ?Last Taken ?Type amlodipine 2.5 mg tablet 5 mg PO DAILY 03/15/23 12/10/23 History blood sugar diagnostic (OneTouch #200 ea 05/31/23 Unknown Rx Verio test strips) leg brace (PEDRITO Ankle Brace) #1 ea 06/14/23 Unknown Rx miscellaneous medical supply 1 ea miscellaneous DAILY #1 ea 06/26/23 Unknown Rx pen needle, diabetic 32 gauge x #100 ea 07/12/23 Unknown Rx /32 (BD Ultra-Fine Ivet Pen Needle) arm brace (Wrist Brace) #2 ea 09/12/23 Unknown Rx insulin lispro 100 unit/mL See Rx Instructions subcut TID #39 09/14/23 Unknown Rx subcutaneous pen (Humalog KwikPen mL (U-100) Insulin) buspirone 10 mg tablet 10 mg PO TID #90 tabs 11/22/23 12/10/23 Rx pantoprazole 40 mg tablet,delayed 40 mg PO DAILY #30 tabs 11/22/23 12/10/23 Rx release metformin 1,000 mg tablet 1,000 mg PO BID #180 tabs 12/01/23 12/10/23 Rx insulin NPH isoph U-100 human 100 30 unit subcut QPM 12/11/23 12/10/23 History unit/mL (3 mL) subcutaneous pen (Humulin N NPH U-100 Insulin KwikPen) Allergy/AdvReac Type Severity Reaction Status Date / Time quetiapine fumarate (From Allergy Other Verified 12/11/23 19:44 Seroquel) exenatide (From Bydureon AdvReac Intermediate Swelling Verified 12/11/23 19:44 BCise) Sulfa (Sulfonamide AdvReac Diarrhea Verified 12/11/23 19:44 Antibiotics) Family History Mother Arthritis Anxiety Fibromyalgia Depression Hypertension Grandfather Colon cancer Father Heart disease Hypertension Myocardial infarction Cancer lung/kidney Surgical History History of hysteroscopy History of esophagogastroduodenoscopy (EGD) Social History adopted: No household members: spouse and children current occupational status: disabled 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 pets and animals: Yes Smoking Status: Never smoker Electronic Cigarette Use: not used alcohol intake: current alcohol intake frequency: holidays/special occasions only substance use type: does not use caffeine: Yes (3) Type: carbonated beverages what type of physical activity do you participate in: walking frequency: daily seatbelt use: always do you feel safe at home: Yes EXAM Physical Exam Const Vital Signs: 12/11/23 18:06 12/11/23 18:30 12/11/23 18:42 Temperature 99.1 F Temperature Source Oral Pulse Rate 124 H 92 Respiratory Rate 18 Respiratory Effort Normal Respiratory Depth Respiratory Pattern Normal Blood Pressure 209/124 H Blood Pressure Mean 152 BP Systolic BP Diastolic Blood Pressure Source Blood Pressure Position Blood Pressure Location Pulse Ox 98 Oxygen Delivery Method Room Air 12/11/23 18:42 12/11/23 18:47 12/11/23 18:47 Temperature Temperature Source Pulse Rate 94 Respiratory Rate Respiratory Effort Respiratory Depth Respiratory Pattern Blood Pressure Blood Pressure Mean BP Systolic BP Diastolic Blood Pressure Source Blood Pressure Position Blood Pressure Location Pulse Ox 99 99 Oxygen Delivery Method 12/11/23 18:47 12/11/23 18:47 12/11/23 18:47 Temperature 98.0 F Temperature Source Temporal Pulse Rate Respiratory Rate 16 Respiratory Effort Respiratory Depth Respiratory Pattern Blood Pressure Blood Pressure Mean BP Systolic BP Diastolic Blood Pressure Source Blood Pressure Position Blood Pressure Location Pulse Ox Oxygen Delivery Method 12/11/23 18:52 12/11/23 18:52 12/11/23 18:57 Temperature Temperature Source Pulse Rate 101 H 88 Respiratory Rate Respiratory Effort Respiratory Depth Respiratory Pattern Blood Pressure Blood Pressure Mean BP Systolic BP Diastolic Blood Pressure Source Blood Pressure Position Blood Pressure Location Pulse Ox 99 Oxygen Delivery Method 12/11/23 18:57 12/11/23 19:00 12/11/23 19:00 Temperature Temperature Source Pulse Rate 85 Respiratory Rate Respiratory Effort Respiratory Depth Respiratory Pattern Blood Pressure 170/83 H Blood Pressure Mean BP Systolic 170 BP Diastolic 83 Blood Pressure Source Blood Pressure Position Blood Pressure Location Pulse Ox 98 Oxygen Delivery Method 12/11/23 19:02 12/11/23 19:02 12/11/23 19:07 Temperature Temperature Source Pulse Rate 100 95 Respiratory Rate Respiratory Effort Respiratory Depth Respiratory Pattern Blood Pressure Blood Pressure Mean BP Systolic BP Diastolic Blood Pressure Source Blood Pressure Position Blood Pressure Location Pulse Ox 98 Oxygen Delivery Method 12/11/23 19:07 12/11/23 19:12 12/11/23 19:12 Temperature Temperature Source Pulse Rate 87 Respiratory Rate Respiratory Effort Respiratory Depth Respiratory Pattern Blood Pressure Blood Pressure Mean BP Systolic BP Diastolic Blood Pressure Source Blood Pressure Position Blood Pressure Location Pulse Ox 98 98 Oxygen Delivery Method 12/11/23 19:15 12/11/23 19:15 12/11/23 19:17 Temperature Temperature Source Pulse Rate 88 85 Respiratory Rate Respiratory Effort Respiratory Depth Respiratory Pattern Blood Pressure 157/86 H Blood Pressure Mean BP Systolic 157 BP Diastolic 86 Blood Pressure Source Blood Pressure Position Blood Pressure Location Pulse Ox Oxygen Delivery Method 12/11/23 19:17 12/11/23 19:21 12/11/23 19:21 Temperature Temperature Source Pulse Rate 93 Respiratory Rate Respiratory Effort Respiratory Depth Respiratory Pattern Blood Pressure Blood Pressure Mean BP Systolic BP Diastolic Blood Pressure Source Blood Pressure Position Blood Pressure Location Pulse Ox 98 93 Oxygen Delivery Method 12/11/23 19:22 12/11/23 19:22 12/11/23 19:27 Temperature Temperature Source Pulse Rate 100 88 Respiratory Rate Respiratory Effort Respiratory Depth Respiratory Pattern Blood Pressure Blood Pressure Mean BP Systolic BP Diastolic Blood Pressure Source Blood Pressure Position Blood Pressure Location Pulse Ox 85 Oxygen Delivery Method 12/11/23 19:27 12/11/23 19:29 12/11/23 19:29 Temperature Temperature Source Pulse Rate 92 Respiratory Rate Respiratory Effort Respiratory Depth Respiratory Pattern Blood Pressure 166/93 H Blood Pressure Mean BP Systolic 166 BP Diastolic 93 Blood Pressure Source Blood Pressure Position Blood Pressure Location Pulse Ox 98 Oxygen Delivery Method 12/11/23 19:41 12/11/23 19:41 12/11/23 19:45 Temperature Temperature Source Pulse Rate 90 Respiratory Rate Respiratory Effort Respiratory Depth Respiratory Pattern Blood Pressure 159/92 H Blood Pressure Mean BP Systolic 159 BP Diastolic 92 Blood Pressure Source Blood Pressure Position Blood Pressure Location Pulse Ox 99 Oxygen Delivery Method 12/11/23 19:45 12/11/23 19:46 12/11/23 19:46 Temperature Temperature Source Pulse Rate 86 81 Respiratory Rate Respiratory Effort Respiratory Depth Respiratory Pattern Blood Pressure Blood Pressure Mean BP Systolic BP Diastolic Blood Pressure Source Blood Pressure Position Blood Pressure Location Pulse Ox 98 Oxygen Delivery Method 12/11/23 19:51 12/11/23 19:51 12/11/23 19:56 Temperature Temperature Source Pulse Rate 75 80 Respiratory Rate Respiratory Effort Respiratory Depth Respiratory Pattern Blood Pressure Blood Pressure Mean BP Systolic BP Diastolic Blood Pressure Source Blood Pressure Position Blood Pressure Location Pulse Ox 99 Oxygen Delivery Method 12/11/23 19:56 12/11/23 20:00 12/11/23 20:00 Temperature Temperature Source Pulse Rate 86 Respiratory Rate Respiratory Effort Respiratory Depth Respiratory Pattern Blood Pressure 162/87 H Blood Pressure Mean BP Systolic 162 BP Diastolic 87 Blood Pressure Source Blood Pressure Position Blood Pressure Location Pulse Ox 99 Oxygen Delivery Method 12/11/23 20:01 12/11/23 20:01 12/11/23 20:06 Temperature Temperature Source Pulse Rate 81 79 Respiratory Rate Respiratory Effort Respiratory Depth Respiratory Pattern Blood Pressure Blood Pressure Mean BP Systolic BP Diastolic Blood Pressure Source Blood Pressure Position Blood Pressure Location Pulse Ox 99 Oxygen Delivery Method 12/11/23 20:06 12/11/23 20:11 12/11/23 20:11 Temperature Temperature Source Pulse Rate 89 Respiratory Rate Respiratory Effort Respiratory Depth Respiratory Pattern Blood Pressure Blood Pressure Mean BP Systolic BP Diastolic Blood Pressure Source Blood Pressure Position Blood Pressure Location Pulse Ox 100 100 Oxygen Delivery Method 12/11/23 20:15 12/11/23 20:15 12/11/23 20:16 Temperature Temperature Source Pulse Rate 80 82 Respiratory Rate Respiratory Effort Respiratory Depth Respiratory Pattern Blood Pressure 164/99 H Blood Pressure Mean BP Systolic 164 BP Diastolic 99 Blood Pressure Source Blood Pressure Position Blood Pressure Location Pulse Ox Oxygen Delivery Method 12/11/23 20:16 12/11/23 20:20 12/11/23 20:20 Temperature Temperature Source Pulse Rate 85 Respiratory Rate Respiratory Effort Respiratory Depth Respiratory Pattern Blood Pressure Blood Pressure Mean BP Systolic BP Diastolic Blood Pressure Source Blood Pressure Position Blood Pressure Location Pulse Ox 98 94 Oxygen Delivery Method 12/11/23 20:21 12/11/23 20:21 12/11/23 21:36 Temperature Temperature Source Pulse Rate 83 Respiratory Rate Respiratory Effort Respiratory Depth Respiratory Pattern Blood Pressure 162/79 H Blood Pressure Mean BP Systolic 162 BP Diastolic 79 Blood Pressure Source Blood Pressure Position Blood Pressure Location Pulse Ox 100 Oxygen Delivery Method 12/11/23 21:36 12/11/23 21:52 12/11/23 21:52 Temperature Temperature Source Pulse Rate 84 86 Respiratory Rate Respiratory Effort Respiratory Depth Respiratory Pattern Blood Pressure 194/81 H Blood Pressure Mean BP Systolic 194 BP Diastolic 81 Blood Pressure Source Blood Pressure Position Blood Pressure Location Pulse Ox Oxygen Delivery Method 12/11/23 21:54 12/11/23 21:54 12/11/23 22:06 Temperature Temperature Source Pulse Rate 83 Respiratory Rate Respiratory Effort Respiratory Depth Respiratory Pattern Blood Pressure 165/77 H 164/88 H Blood Pressure Mean BP Systolic 165 164 BP Diastolic 77 88 Blood Pressure Source Blood Pressure Position Blood Pressure Location Pulse Ox Oxygen Delivery Method 12/11/23 22:06 12/11/23 22:21 12/11/23 22:21 Temperature Temperature Source Pulse Rate 79 76 Respiratory Rate Respiratory Effort Respiratory Depth Respiratory Pattern Blood Pressure 167/91 H Blood Pressure Mean BP Systolic 167 BP Diastolic 91 Blood Pressure Source Blood Pressure Position Blood Pressure Location Pulse Ox Oxygen Delivery Method 12/11/23 22:36 12/11/23 22:36 12/11/23 22:40 Temperature Temperature Source Pulse Rate 78 Respiratory Rate Respiratory Effort Respiratory Depth Respiratory Pattern Blood Pressure 174/91 H 170/104 H Blood Pressure Mean BP Systolic 174 170 BP Diastolic 91 104 Blood Pressure Source Blood Pressure Position Blood Pressure Location Pulse Ox Oxygen Delivery Method 12/11/23 23:06 12/11/23 23:06 12/11/23 23:21 Temperature Temperature Source Pulse Rate 100 Respiratory Rate Respiratory Effort Respiratory Depth Respiratory Pattern Blood Pressure 174/102 H 182/106 H Blood Pressure Mean BP Systolic 174 182 BP Diastolic 102 106 Blood Pressure Source Blood Pressure Position Blood Pressure Location Pulse Ox Oxygen Delivery Method 12/11/23 23:21 12/11/23 23:37 12/11/23 23:37 Temperature Temperature Source Pulse Rate 90 86 Respiratory Rate Respiratory Effort Respiratory Depth Respiratory Pattern Blood Pressure 177/89 H Blood Pressure Mean BP Systolic 177 BP Diastolic 89 Blood Pressure Source Blood Pressure Position Blood Pressure Location Pulse Ox Oxygen Delivery Method 12/11/23 23:55 12/11/23 23:55 12/12/23 00:00 Temperature 96.8 F L Temperature Source Temporal Temporal Pulse Rate 76 78 Respiratory Rate 14 Respiratory Effort Normal Respiratory Depth Normal Respiratory Pattern Normal Blood Pressure 177/89 H Blood Pressure Mean 118 BP Systolic BP Diastolic Blood Pressure Source Monitor Blood Pressure Position Semi-Fowlers Blood Pressure Location Right Arm Pulse Ox 99 Oxygen Delivery Method Room Air 12/12/23 00:00 12/12/23 00:05 12/12/23 00:05 Temperature Temperature Source Pulse Rate 75 Respiratory Rate Respiratory Effort Respiratory Depth Respiratory Pattern Blood Pressure Blood Pressure Mean BP Systolic BP Diastolic Blood Pressure Source Blood Pressure Position Blood Pressure Location Pulse Ox 99 98 Oxygen Delivery Method 12/12/23 00:06 12/12/23 00:06 12/12/23 00:10 Temperature Temperature Source Pulse Rate 78 81 Respiratory Rate Respiratory Effort Respiratory Depth Respiratory Pattern Blood Pressure 142/67 H Blood Pressure Mean BP Systolic 142 BP Diastolic 67 Blood Pressure Source Blood Pressure Position Blood Pressure Location Pulse Ox Oxygen Delivery Method 12/12/23 00:10 12/12/23 00:10 12/12/23 00:15 Temperature Temperature Source Pulse Rate 79 81 Respiratory Rate 18 Respiratory Effort Normal Respiratory Depth Normal Respiratory Pattern Normal Blood Pressure 142/67 H Blood Pressure Mean 92 BP Systolic BP Diastolic Blood Pressure Source Monitor Blood Pressure Position Semi-Fowlers Blood Pressure Location Right Arm Pulse Ox 97 99 Oxygen Delivery Method Room Air 12/12/23 00:15 12/12/23 00:16 12/12/23 00:16 Temperature Temperature Source Pulse Rate 79 Respiratory Rate Respiratory Effort Respiratory Depth Respiratory Pattern Blood Pressure 134/65 H Blood Pressure Mean BP Systolic 134 BP Diastolic 65 Blood Pressure Source Blood Pressure Position Blood Pressure Location Pulse Ox 96 Oxygen Delivery Method 12/12/23 00:20 12/12/23 00:20 12/12/23 00:25 Temperature Temperature Source Pulse Rate 81 79 Respiratory Rate Respiratory Effort Respiratory Depth Respiratory Pattern Blood Pressure Blood Pressure Mean BP Systolic BP Diastolic Blood Pressure Source Blood Pressure Position Blood Pressure Location Pulse Ox 97 Oxygen Delivery Method 12/12/23 00:25 12/12/23 00:26 12/12/23 00:26 Temperature Temperature Source Pulse Rate 77 Respiratory Rate Respiratory Effort Respiratory Depth Respiratory Pattern Blood Pressure 140/70 H Blood Pressure Mean BP Systolic 140 BP Diastolic 70 Blood Pressure Source Blood Pressure Position Blood Pressure Location Pulse Ox 97 Oxygen Delivery Method MDM MDM MDM Narrative Medical decision making narrative: 38-year-old female who is 5 days presents for evaluation of headache with hypertension. No history of preeclampsia with this . On presentation, patient's blood pressure is 209/124. Differential diagnosis includes but is not limited to preeclampsia, headache, new onset hypertension. As I was placing orders for laboratory workup as well as IV labetalol, nursing informed me that patient was supposed to be evaluated in the OB emergency department. Workup canceled. Patient was taken to the OB emergency department. Impression: 1. Hypertension 5 days , concern for preeclampsia 2. Headache Lab Data Labs: Laboratory Results - last 24 hr 12/11/23 12/11/23 12/11/23 18:25 19:40 20:41 WBC 10.4 RBC 4.00 L Hgb 10.4 L Hct 33.0 L MCV 82.5 MCH 26.0 L MCHC 31.5 L RDW Std Deviation 42.8 RDW Coeff of Drake 14.3 Plt Count 272 MPV 10.7 Creatinine 0.63 Estim Creat Clear Calc 162.97 Est GFR (MDRD) Af Amer 136 Est GFR (MDRD) Non-Af 112 Uric Acid 4.5 AST 49 H ALT 42 U Random Total Protein 23.2 H Urine Creatinine 78.60 Protein/Creatinin Ratio 295 H POC Glucose 89 Discharge Plan Admission Admit Date/Time: 12/11/23 23:42 Attending Provider: Delon Pina Primary Care Provider: Cindy Acosta Consulting Providers: Luis Sanchez Discharge Orders/Prescriptions Prescriptions: No Action amlodipine 2.5 mg tablet 5 mg PO DAILY (DME) Wrist Brace Misc See Rx Instructions .Route Qty: 2 0RF Rx Instructions: As directed miscellaneous medical supply [facility] 1 ea miscellaneous DAILY Qty: 1 0RF Humulin N NPH Insulin KwikPen 100 unit/mL (3 mL) insulin pen 30 unit subcut QPM (DME) OneTouch Verio test strips Strip See Rx Instructions .Route Qty: 200 5RF Rx Instructions: 5x/day (DME) PEDRITO Ankle Brace [facility] See Rx Instructions .Route Qty: 1 0RF Rx Instructions: As directed (DME) pen needle, diabetic [BD Ultra-Fine Ivet Pen Needle] 32 gauge x 5/32 needle See Rx Instructions .Route Qty: 100 5RF Rx Instructions: daily insulin lispro [Humalog KwikPen Insulin] 100 unit/mL insulin pen See Rx Instructions subcut TID MDD 124 Qty: 39 0RF Rx Instructions: 28-28-40, plus SSI subcutaneously three times a day; pantoprazole 40 mg tablet,delayed release (DR/EC) 40 mg PO DAILY Qty: 30 2RF buspirone 10 mg tablet 10 mg PO TID Qty: 90 2RF metformin 1,000 mg tablet 1,000 mg PO BID Qty: 180 1RF Referrals / Follow Up: Cindy Acosta MD [Primary Care Provider] -
--- NOTE | 2023-12-11 18:38 | ED.RN ---
PT TRANSFERRED TO [facility] AT 1830
[2023-12-11 19:41] LABS: Hemoglobin 10.4 g/dL (12.0-15.0); Mean Corp Hgb Conc 31.5 g/dL (32-36); Mean Corpuscular Volume 82.5 fL (81-99); Mean Platelet Vol. 10.7 fl (6.2-12.0); Platelet Count 272 K/mm3 (150-450); RBC Distribution Width CV 14.3 % (11.6-14.6); RBC Distribution Width SD 42.8 fl (35.1-43.9); White Blood Count 10.4 K/mm3 (4.4-11.0)
[2023-12-11 20:02] LABS: AST(SGOT) 49 U/L (15-37); Alanine Aminotransfer ALT/SGPT 42 U/L (13-56); Creatinine, Serum 0.63 mg/dL (0.55-1.02); EST Glomerular Filtration Rate 112 mL/min (>60); Est Glom Filt Rate - Afr Amer 136 mL/min (>60); Estimated Creatinine Clearance 162.97 ml/min; Uric Acid 4.5 mg/dL (2.6-6.0)
[2023-12-11 20:03] LABS: Protein, Urine (Random) 23.2 mg/dL (<11.9); Protein:Creat Ratio 295 mg/g CRE (0-200)
--- NOTE | 2023-12-11 20:29 | OB.TRI.NOTE ---
HPI - General General Date of Admission: 12/11/23 Date of Service: 12/11/23 Chief Complaint: Headache 5 Days HPI Narrative DORY HENDERSON, is a 38 F G5, P4 Ab1 who presents to labor and delivery with a headache approximately 5 days . She has had issues with PIH as well as PIH in the past although with this she has not had any blood pressure issues. She is a type II diabetic on insulin and metformin and takes amlodipine 5 mg daily for chronic blood pressure control. She was continued on the amlodipine . She delivered at [facility] and what she describes as an uneventful delivery. [facility] Medical History History of depression Earache, left Wears glasses Depression Anxiety Alcohol use Diabetes Fatty liver Back pain Migraine headache Dietary restriction History of ulceration Gastric reflux Non-smoker Shortness of breath on exertion Hypertension Infestation by mites Contact dermatitis Carpal tunnel syndrome Acute otitis media, right Tonsillolith Allergic dermatitis GERD (gastroesophageal reflux disease) Diabetes type 2, controlled High blood pressure BPPV (benign paroxysmal positional vertigo) Pre-eclampsia, Home Medications ?Medication ?Instructions ?Recorded ?Last Taken ?Type amlodipine 2.5 mg tablet 5 mg PO DAILY 03/15/23 12/10/23 History blood sugar diagnostic (OneTouch #200 ea 05/31/23 Unknown Rx Verio test strips) leg brace (PEDRITO Ankle Brace) #1 ea 06/14/23 Unknown Rx miscellaneous medical supply 1 ea miscellaneous DAILY #1 ea 06/26/23 Unknown Rx pen needle, diabetic 32 gauge x #100 ea 07/12/23 Unknown Rx / (BD Ultra-Fine Ivet Pen Needle) arm brace (Wrist Brace) #2 ea 09/12/23 Unknown Rx insulin lispro 100 unit/mL See Rx Instructions subcut TID #39 09/14/23 Unknown Rx subcutaneous pen (Humalog KwikPen mL (U-100) Insulin) buspirone 10 mg tablet 10 mg PO TID #90 tabs 11/22/23 12/10/23 Rx pantoprazole 40 mg tablet,delayed 40 mg PO DAILY #30 tabs 11/22/23 12/10/23 Rx release metformin 1,000 mg tablet 1,000 mg PO BID #180 tabs 12/01/23 12/10/23 Rx insulin NPH isoph U-100 human 100 30 unit subcut QPM 12/11/23 12/10/23 History unit/mL (3 mL) subcutaneous pen (Humulin N NPH U-100 Insulin KwikPen) Allergy/AdvReac Type Severity Reaction Status Date / Time quetiapine fumarate (From Allergy Other Verified 12/11/23 19:44 Seroquel) exenatide (From Bydureon AdvReac Intermediate Swelling Verified 12/11/23 19:44 BCise) Sulfa (Sulfonamide AdvReac Diarrhea Verified 12/11/23 19:44 Antibiotics) Family History Mother Arthritis Anxiety Fibromyalgia Depression Hypertension Grandfather Colon cancer Father Heart disease Hypertension Myocardial infarction Cancer lung/kidney Surgical History History of hysteroscopy History of esophagogastroduodenoscopy (EGD) Social History adopted: No household members: spouse and children 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 occupational status: disabled 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 She tried Tylenol at about 2:30 this afternoon which did not completely relieve the symptoms. Eyes Eyes: Reports other Details: Denies any visual changes Physical Exam Narrative Afebrile, vital signs stable. Intermittent blood pressures in the 150s to 160s over 80 to 90s. Const oriented x3 and no apparent distress General Appearance: cooperative and comfortable Exam Limitations: no limitations Nutritional Appearance: morbidly obese HEENT HEENT Narrative: Normal-appearing sclera Head and Scalp: normocephalic Neck full ROM Resp normal respiratory effort and no retractions Cardio regular rate and regular rhythm GI non-distended GI Narrative: No epigastric tenderness Extremity no clubbing, cyanosis or edema Neuro moves all extremities Neuro Narrative: Normal deep tendon reflexes, no clonus Psych mental status grossly normal, affect normal, speech normal and activity/motor behavior normal Assessment & Plan (1) induced hypertension, : COMMENT: Mild -induced hypertension. Labs normal except slightly elevated AST. No PIH symptoms except for a mild headache. Blood pressures marginally high on occasion. PLAN: Plan Tylenol for symptoms and will switch from amlodipine to Procardia XL 30 mg this evening for more effective blood pressure control. Will have patient take her regular doses of metformin and insulin. Patient is a difficult IV start so we will hold off starting the IV for now unless blood pressures worsen during the night. Discussed starting magnesium sulfate should this occur. Anticipate release to home tomorrow morning on either 30 or 60 mg of Procardia XL with follow-up with her regular marketing engineer.
[2023-12-11] MEDS: Acetaminophen 500 MG Tablet 1000 MG PO (20:32)
[2023-12-11] MEDS: NIFEdipine 30 MG Tablet PO ×2 (20:32→23:04)
[2023-12-11 21:05] LABS: Bedside Glucose 89 mg/dL (74-106)
[2023-12-11] MEDS: Insulin NPH Human 100 UNITS/ML PEN 30 UNITS SC (21:31)
[2023-12-11] MEDS: metFORMIN HCl 1,000 MG Tablet 1000 MG PO (21:32)
[2023-12-11] MEDS: Magnesium Sulfate 4gm/100mL 4 GM/100 ML IV.SOLN. IV (23:54)
[2023-12-11] MEDS: Labetalol (Prefilled) 20 MG/4 ML Vial IV (23:55)
[2023-12-12] VITALS (161 sets, daily range): BP systolic 96–167; BP diastolic 44–95; PULSE 63–99; RESP 14–18; TEMP 36.1–36.9; O2SAT 90–100
[2023-12-12] MEDS: Magnesium Sulfate 20 GM/500 ML BAG IV ×2 (00:13→10:21)
[2023-12-12] MEDS: Labetalol 100 MG Tablet PO (00:42)
[2023-12-12] MEDS: Labetalol (Prefilled) 20 MG/4 ML Vial IV (03:02)
[2023-12-12] MEDS: 0.9% Saline Lock 10 ML Syringe IV ×2 (03:02→20:04)
[2023-12-12] MEDS: Acetaminophen/Butalbital/Caffe 1 Tablet PO ×3 (03:09→17:26)
[2023-12-12 04:28] LABS: Bedside Glucose 125 mg/dL (74-106)
[2023-12-12] MEDS: metFORMIN HCl 1,000 MG Tablet 1000 MG PO ×2 (08:59→17:59)
[2023-12-12 09:12] LABS: Bedside Glucose 114 mg/dL (74-106)
--- NOTE | 2023-12-12 09:39 | PN.OBGYN_ITS ---
Subjective Subjective Patient with severe headache last evening relieved with Fioricet. Now no headache and no PIH symptoms. Blood pressures also as high as 180s over 106. Magnesium sulfate started. Blood pressures now normal on Procardia XL 60 mg daily and labetalol 50 mg twice daily. Required 2 labetalol IV rescues overnight to return blood pressures to normal. Objective Data Objective Data Afebrile, vital signs stable. No clonus. DTRs normal. No epigastric pain. Vital Signs: Vital Signs Temp Pulse Resp BP Pulse Ox O2 Del Method 97.0 F L 84 16 128/72 H 99 Room Air 12/12/23 08:45 12/12/23 08:45 12/12/23 08:45 12/12/23 08:45 12/12/23 08:45 12/12/23 08:45 Oxygen Delivery Method Room Air Weight: 280 lb Body Mass Index (BMI) 48.0 Intake & Output: Intake and Output for Last 24 Hours 12/10/23 12/11/23 12/12/23 23:59 23:59 23:59 Intake Total 1093.34 / 1093.34 Output Total 300 / 300 2700 / 2700 Balance -300 / -300 -1606.66 / -1606.66 Lab / Micro Data 12/11/23 18:25 12/11/23 18:25 Labs: Laboratory Results - last 24 hr 12/11/23 18:25: WBC 10.4, RBC 4.00 L, Hgb 10.4 L, Hct 33.0 L, MCV 82.5, MCH 26.0 L, MCHC 31.5 L, RDW Std Deviation 42.8, RDW Coeff of Drake 14.3, Plt Count 272, MPV 10.7, Creatinine 0.63, Estim Creat Clear Calc 162.97, Est GFR (MDRD) Af Amer 136, Est GFR (MDRD) Non-Af 112, Uric Acid 4.5, AST 49 H, ALT 42 12/11/23 19:40: U Random Total Protein 23.2 H, Urine Creatinine 78.60, P rotein/Creatinin Ratio 295 H 12/11/23 20:41: POC Glucose 89 12/12/23 03:46: POC Glucose 125 H 12/12/23 08:54: POC Glucose 114 H Assessment & Plan (1) induced hypertension, : COMMENT: Severe -induced hypertension. Fioricet working well to control headaches. Continuing magnesium sulfate today. Plan to continue magnesium sulfate until 8 PM and if stable will discontinue at that point. Anticipate release to home on Procardia XL 60 mg daily and labetalol 50 mg twice daily with follow-up with Dr. De Oliveira on Sunday.
[2023-12-12] MEDS: Labetalol 100 MG Tablet 50 MG PO ×2 (10:22→22:11)
[2023-12-12 12:11] LABS: Bedside Glucose 130 mg/dL (74-106)
[2023-12-12 17:18] LABS: Bedside Glucose 87 mg/dL (74-106)
[2023-12-12] MEDS: Loratadine 10 MG Tablet PO (17:59)
[2023-12-12] MEDS: NIFEdipine 60 MG Tablet PO (22:10)
[2023-12-12] MEDS: Insulin NPH Human 100 UNITS/ML PEN 30 UNITS SC (22:12)
[2023-12-13 05:12] VITALS: BP 105/58; PULSE 88; RESP 16
[2023-12-13 05:13] VITALS: BP 105/58; PULSE 88
[2023-12-13 05:14] VITALS: O2SAT 81
[2023-12-13] MEDS: Acetaminophen/Butalbital/Caffe 1 Tablet PO (05:17)
[2023-12-13] MEDS: Loratadine 10 MG Tablet PO (09:12)
[2023-12-13] MEDS: metFORMIN HCl 1,000 MG Tablet 1000 MG PO (09:12)
[2023-12-13] MEDS: Labetalol 100 MG Tablet 50 MG PO (09:12)
[2023-12-13 09:17] VITALS: BP 125/68; PULSE 86
[2023-12-13 09:21] VITALS: BP 125/68; PULSE 86; RESP 18; TEMP 36.7
--- NOTE | 2023-12-13 09:26 | DS.PCM_ITS ---
Providers Date of Admission: 12/12/23 Primary Care Physician: Dr. Cindy Acosta MD Reason For Visit: POST- PREECLAMPSIA Diagnosis Discharge Diagnosis (1) induced hypertension, : Status: Acute Code(s): O13.5 - Gestational [-induced] hypertension without significant proteinuria, complicating the puerperium Plan: Patient was admitted with -induced hypertension about 5 days . Blood pressures were 180s over 100s and AST was mildly elevated. Magnesium sulfate was given for approximately 24 hours and blood pressure is controlled with oral Procardia XL 60 mg daily and labetalol 50 mg twice daily. Metformin and insulin were continued as prior to admission. Plan Plan discharged to home on Procardia XL 60 mg daily and labetalol 50 mg twice daily. She is to stop her amlodipine. She has to follow-up in 3 days with her primary [employer] in [place]. Medications at Discharge Home Medications blood sugar diagnostic (OneTouch Verio test strips) #200 ea 05/31/23 leg brace (PEDRITO Ankle Brace) #1 ea 06/14/23 miscellaneous medical supply 1 ea miscellaneous DAILY #1 ea 06/26/23 pen needle, diabetic 32 gauge x 5/32 (BD Ultra-Fine Ivet Pen Needle) #100 ea 07/12/23 arm brace (Wrist Brace) #2 ea 09/12/23 insulin lispro 100 unit/mL subcutaneous pen (Humalog KwikPen (U-100) Insulin) See Rx Instructions subcut TID #39 mL 09/14/23 buspirone 10 mg tablet 10 mg PO TID #90 tabs 11/22/23 pantoprazole 40 mg tablet,delayed release 40 mg PO DAILY #30 tabs 11/22/23 metformin 1,000 mg tablet 1,000 mg PO BID #180 tabs 12/01/23 insulin NPH isoph U-100 human 100 unit/mL (3 mL) subcutaneous pen (Humulin N NPH U-100 Insulin KwikPen) 30 unit subcut QPM 12/11/23 labetalol 100 mg tablet 50 mg (1/2 x 100 mg) PO BID 14 days #14 tabs 12/13/23 nifedipine 60 mg tablet,extended release 24 hr 60 mg PO DAILY@2200 28 days #28 tabs 12/13/23 Hospital Course Summary of Care Provided Hospital Course: Patient was admitted with -induced hypertension about 5 days . Blood pressures were 180s over 100s and AST was mildly elevated. Magnesium sulfate was given for approximately 24 hours and blood pressure is controlled with oral Procardia XL 60 mg daily and labetalol 50 mg twice daily. Metformin and insulin were continued as prior to admission. Blood pressures remain normal and stable after stopping magnesium sulfate and it was felt that the patient was ready for discharge to home. Physical Exam Const Constitutional Narrative: Afebrile, vital signs stable. No neurologic symptoms at time of discharge. Weight / BMI Weight Weight: 280 lb Body Mass Index (BMI) 48.0 ABG / Lab / Microbiology Data 12/11/23 18:25 12/11/23 18:25 Laboratory: Laboratory Results - last 24 hr 12/12/23 11:39: POC Glucose 130 H 12/12/23 16:55: POC Glucose 87 D/C Instructions Discharge Activity: Return to Normal Activity May resume sexual activity in: 3 weeks Call your doctor if you observe: Fever of 101 or Higher, Inability to urinate and Inability to have a bowel movement Additional Instructions: Monitor blood pressure several times per day. Okay to slowly wean from labetalol if blood pressures are normal. Follow-up with Dr. De Oliveira on Sunday. Please Follow Up With: Carlos De Oliveira MD When: On Sunday in his office in [place]. Meaningful Use Info Meaningful Use Meaningful Use Diagnoses (Choose all that apply): None applicable Ischemic Stroke Statin Dosing Therapy Reference: STATIN DOSE THERAPY REFERENCE: * Patients > 75 years receive moderate or high dose statin therapy. * Patients 75 years or YOUNGER should receive HIGH intensity statin dose unless contraindicated. You will be required to document reason for non-treatment if statin daily dose does not meet guidelines. HIGH DOSE STATIN THERAPY DAILY Atorvastatin > than or = to 40 mg Rosuvastatin > than or = to 20 mg Amlodipine + Atorvastatin > than or = to 2.5/40 mg Ezetimibe + Simvastatin 10/80 mg Simvastatin 80mg Discharge Plan Admission Admit Date/Time: 12/12/23 11:17 Primary Reason for Your Visit: -Induced Hypertension Attending Provider: Delon Pina Primary Care Provider: Cindy Acosta Consulting Providers: Luis Sanchez Discharge Orders/Prescriptions Prescriptions: New nifedipine 60 mg Tablet Extended Release 24hr 60 mg PO DAILY@2200 28 Days Qty: 28 0RF labetalol 100 mg Tablet 50 mg PO BID 14 Days Qty: 14 0RF Discontinued amlodipine 2.5 mg tablet 5 mg PO DAILY No Action (DME) Wrist Brace Misc See Rx Instructions .Route Qty: 2 0RF Rx Instructions: As directed miscellaneous medical supply Misc 1 ea miscellaneous DAILY Qty: 1 0RF Humulin N NPH Insulin KwikPen 100 unit/mL (3 mL) insulin pen 30 unit subcut QPM (DME) OneTouch Verio test strips Strip See Rx Instructions .Route Qty: 200 5RF Rx Instructions: 5x/day (DME) PEDRITO Ankle Brace Misc See Rx Instructions .Route Qty: 1 0RF Rx Instructions: As directed (DME) pen needle, diabetic [BD Ultra-Fine Ivet Pen Needle] 32 gauge x 5/32 needle See Rx Instructions .Route Qty: 100 5RF Rx Instructions: daily insulin lispro [Humalog KwikPen Insulin] 100 unit/mL insulin pen See Rx Instructions subcut TID MDD 124 Qty: 39 0RF Rx Instructions: 40, plus SSI subcutaneously three times a day; pantoprazole 40 mg tablet,delayed release (DR/EC) 40 mg PO DAILY Qty: 30 2RF buspirone 10 mg tablet 10 mg PO TID Qty: 90 2RF metformin 1,000 mg tablet 1,000 mg PO BID Qty: 180 1RF Referrals / Follow Up: Cindy Acosta MD [Primary Care Provider] - Disposition Disposition (needs filled in before D/C Order can be placed): Home, Self Care
[2023-12-13 09:35] LABS: Bedside Glucose 94 mg/dL (74-106)
== END 2023-12-13 10:45 | disposition home or self-care (01) ==
LOC: WPOUT 11:41 → WP 11:41
PROVIDERS: Admitting Provider Obstetrics & Gynecology; PCP Internal Medicine; Referring Provider Obstetrics & Gynecology; Visit Provider Obstetrics & Gynecology
DX: O13.5 Gestational [pregnancy-induced] hypertension without significant proteinuria, complicating the puerperium (principal); Z79.4 Long term (current) use of insulin; O24.93 Unspecified diabetes mellitus in the puerperium; Z79.84 Long term (current) use of oral hypoglycemic drugs; Z79.899 Other long term (current) drug therapy
CPT/HCPCS: 96365; 96375; 96376; 36415; 82565; 82570; 82962; 84156; 84450; 84460; 84550; 85027; 94760; 99221; A4216; G0378

== ENCOUNTER 2024-04-14 19:20 | Emergency (ER) | payer MEDICARE, MEDICAID, SELFPAY ==
[2024-04-14 19:22] VITALS: BP 181/91; PULSE 86; RESP 20; TEMP 36.4; O2SAT 100; BMI 47.5
--- NOTE | 2024-04-14 20:09 | RAD_ITS ---
PROCEDURE: CHEST 1 VIEW (PORTABLE) REASON FOR EXAM: Chest pain. Hypertension. TECHNIQUE: Frontal view of the chest. COMPARISON: None. FINDINGS: Cardiac size and pulmonary vasculature are within normal limits. No consolidation, pleural effusion, or pneumothorax is present. RAD/Chest 1 View (Portable) IMPRESSION: No acute cardiopulmonary process. [facility]
--- NOTE | 2024-04-14 20:09 | EKG12_ITS ---
Test Reason : CP Blood Pressure : */* mmHG Vent. Rate : 76 BPM Atrial Rate : 76 BPM P-R Int : 160 ms QRS Dur : 90 ms QT Int : 426 ms P-R-T Axes : 33 41 56 degrees QTcB Int : 479 ms Normal sinus rhythm Normal ECG Confirmed by Dave Iverson ([id number]), science editor JOSEY SINGLETON ([id number]) on 04/15/2024 10:00:24 AM Referred By: RU Confirmed By: Dave Iverson
--- NOTE | 2024-04-14 20:10 | EX.ED.DYSGE1 ---
HPI History of Present Illness Chief Complaint: Hypertension Informant: patient Narrative Narrative: Presenting with mid abdominal pain since this morning. Nausea without vomiting. 5 bowel movements today more solid becoming more loose nonbloody. No urinary symptoms. No abdominal surgeries. Last menstrual period a week ago. Intermittent dizzy lightheaded symptoms for 3 days. No cough. 1 in the waiting room had transient chest pain. She states this evening she took her blood pressure systolic 180 at home. She had a gynecology visit today for discussion for potential tubal ligation her blood pressure 140 over 90s. She is on amlodipine typical blood pressures 120s. She had preeclampsia previously therefore symptoms feeling warm and flushed but the high blood pressure for which she checked. Denies any significant alcohol history. Denies history of pancreatitis. [facility] Medical History induced hypertension, ESTHER (generalized anxiety disorder) History of depression Earache, left Wears glasses Depression Anxiety Alcohol use Diabetes Fatty liver Back pain Migraine headache Dietary restriction History of ulceration Gastric reflux Non-smoker Shortness of breath on exertion Hypertension Infestation by mites Contact dermatitis Carpal tunnel syndrome Acute otitis media, right Tonsillolith Allergic dermatitis GERD (gastroesophageal reflux disease) Diabetes type 2, controlled High blood pressure BPPV (benign paroxysmal positional vertigo) Pre-eclampsia, Home Medications ?Medication ?Instructions ?Recorded ?Last Taken ?Type blood sugar diagnostic (OneTouch #200 ea 05/31/23 Unknown Rx Verio test strips) leg brace (PEDRITO Ankle Brace) #1 ea 06/14/23 Unknown Rx pen needle, diabetic 32 gauge x #100 ea 07/12/23 Unknown Rx /32 (BD Ultra-Fine Ivet Pen Needle) arm brace (Wrist Brace) #2 ea 09/12/23 Unknown Rx metformin 1,000 mg tablet 1,000 mg PO BID #180 tabs 12/01/23 12/10/23 Rx pantoprazole 40 mg tablet,delayed 40 mg PO DAILY #30 tabs 02/18/24 Unknown Rx release amlodipine 5 mg tablet 5 mg PO QDAY 03/12/24 Unknown History buspirone 15 mg tablet 15 mg PO TID #90 tabs 03/18/24 Unknown Rx clonazepam 0.5 mg tablet (Klonopin) 0.5 mg PO DAILY PRN anxiety #15 03/18/24 Unknown Rx tabs dicyclomine 10 mg capsule 20 mg (2 x 10 mg) PO TIDAC #20 04/15/24 Unknown Rx CAPSULES ondansetron 4 mg disintegrating 4 mg PO Q8H PRN PRN Nausea #10 tabs 04/15/24 Unknown Rx tablet sucralfate 1 gram tablet (Carafate) 1 g PO Q6H #60 tabs 04/15/24 Unknown Rx Allergy/AdvReac Type Severity Reaction Status Date / Time quetiapine fumarate (From Allergy Other Verified 04/14/24 19:42 Seroquel) exenatide (From Bydureon AdvReac Intermediate Swelling Verified 04/14/24 19:42 BCise) Sulfa (Sulfonamide AdvReac Diarrhea Verified 04/14/24 19:42 Antibiotics) Family History Mother Arthritis Anxiety Fibromyalgia Depression Hypertension Grandfather Colon cancer Father Heart disease Hypertension Myocardial infarction Cancer lung/kidney Surgical History History of hysteroscopy History of esophagogastroduodenoscopy (EGD) Social History adopted: No household members: spouse and children current occupational status: disabled 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 pets and animals: Yes Smoking Status: Never smoker Electronic Cigarette Use: not used alcohol intake: current alcohol intake frequency: holidays/special occasions only substance use type: does not use caffeine: Yes (3) Type: carbonated beverages what type of physical activity do you participate in: walking frequency: daily seatbelt use: always do you feel safe at home: Yes ROS ROS ED Constitutional Constitutional ED: Denies chills, fever(s) or sweats ENT ENT ED: Denies sore throat Cardiovascular Cardiovascular: Reports chest pain and other Details: Lightheaded ; Denies leg edema, palpitations or racing heartbeat Respiratory/Chest Respiratory/Chest: Denies cough, dyspnea or dyspnea on exertion Gastrointestinal Gastrointestinal: Reports abdominal pain, diarrhea and nausea; Denies vomiting Genitourinary Genitourinary ED: Denies dysuria, hematuria or urinary frequency Musculoskeletal Musculoskeletal: Denies back pain, extremity pain or neck pain Integumentary Denies rash or wounds Neurologic Neurologic: Denies headache(s), paresthesias or weakness EXAM Physical Exam Const Vital Signs: 04/14/24 19:22 04/14/24 19:43 04/14/24 20:22 Temperature 97.6 F L Temperature Source Temporal Pulse Rate 86 86 Respiratory Rate 20 H 12 Respiratory Effort Normal Non-Labored Respiratory Pattern Normal Blood Pressure 181/91 H 175/92 H Blood Pressure Mean 121 119 Pulse Ox 100 98 Oxygen Delivery Method Room Air Room Air 04/14/24 21:00 04/14/24 22:00 04/14/24 22:47 Temperature Temperature Source Pulse Rate 69 74 71 Respiratory Rate 18 14 14 Respiratory Effort Respiratory Pattern Blood Pressure 165/85 H 162/80 H 172/67 H Blood Pressure Mean 111 107 102 Pulse Ox 96 98 98 Oxygen Delivery Method Room Air Room Air Room Air 04/14/24 23:00 04/15/24 00:00 Temperature Temperature Source Pulse Rate 70 75 Respiratory Rate 18 18 Respiratory Effort Respiratory Pattern Blood Pressure 154/72 H 159/93 H Blood Pressure Mean 99 115 Pulse Ox 98 99 Oxygen Delivery Method Room Air Room Air Positive well nourished and well developed General Appearance ED: well developed and NAD HEENT Reports moist mucous membranes normocephalic and atraumatic Eyes General Eye ED: Yes normal appearance of both eyes Neck full ROM Chest Wall Chest: Negative for tenderness Resp normal respiratory effort and normal air movement Effort and Inspection: symmetric chest movement; Negative for respiratory distress Cardio regular rate, regular rhythm and no murmurs Peripheral Pulses: pulses 2+ throughout GI normal to inspection, nondistended, normoactive bowel sounds GI Narrative: Mild mid abdominal tenderness no guarding rebound. Negative Daugherty's or McBurney's tenderness. Palpation: Negative for guarding or rebound tenderness present Extremity normal to inspection General Extremety ED: Negative for edema or tenderness General Extremity: Negative for edema Neuro oriented x3 and no sensory deficits noted Sensorium / Orientation: awake and alert Skin no rashes or lesions noted and no wounds MDM MDM MDM Narrative Medical decision making narrative: Interventions / MDM: Differential diagnosis: Gastritis, abdominal pain, atypical chest pain Diagnosis considered but do not suspect: Pancreatitis, colitis, however CT negative. ACS however EKG normal cardiac enzymes negative. My EKG interpretation: Sinus rate of 76, no ST or T wave changes. Imaging independently reviewed and interpreted by myself: 1 view chest x-ray: No acute process. CT abdomen pelvis IV contrast: No acute process. Mild steatosis noted and mild splenomegaly. Also read by radiology. External documents reviewed: EGD 12/2022 Dr. Medrano, multiple gastric polyps that were removed. Pathology with gastritis, negative for H. pylori. Test considered but not ordered:N/A ED course: Patient reports transient chest pain in triage EKG sinus rhythm. Primary complaint was mid and epigastric abdominal pain since this morning. Nausea without vomiting. Nonsurgical abdomen. Cardiac workup with abdominal labs ordered. Patient order for oral Bentyl, Zofran and fluids. Labs white count returned 15.8 normal lipase creatinine 1.02, liver enzymes normal. hCG negative. Patient reported continued pain now more localized epigastric region. Added Pepcid with her white count 15.8 and continued reported pain CT scan ordered for further evaluation. 2330: CT scan showed no acute process with mild steatosis with splenomegaly. She reported no improvement with Pepcid she reported she vomited up the oral Bentyl earlier. She states she is currently on pantoprazole daily. She has had upper endoscopy 2 years ago. She cannot recall the physician who performed this. Will dose with IM Bentyl, IV Reglan, GI cocktail be ordered. Will reevaluate. 0030: Clinically improving. Reviewing records she had a EGD December 2022 with polypectomies confirming gastritis. Negative H. pylori. She will continue pantoprazole, will add Carafate. Prescription for Zofran and dicyclomine to use as needed. Outpatient follow-up with Dr. Medrano. Re-evaluation: stable Disposition discussed with patient/family/significant other: Patient Case discussed with consulting clinician: N/A This note was generated with [employer] dictation software. It may contain incorrect words, spelling, and punctuation that were not noted in checking the note before signing. Lab Data Attestation: I reviewed the patient's lab results. Labs: Laboratory Results - last 24 hr 04/14/24 04/14/24 19:45 22:44 WBC 15.8 H RBC 5.01 Hgb 12.3 Hct 38.2 MCV 76.2 L MCH 24.6 L MCHC 32.2 RDW Std Deviation 41.5 RDW Coeff of Drake 15.1 H Plt Count 330 MPV 10.5 Immature Gran % (Auto) 0.500 Neut % (Auto) 80.1 H Lymph % (Auto) 14.2 L [place] % (Auto) 4.1 Eos % (Auto) 0.9 Baso % (Auto) 0.2 Absolute Neuts (auto) 12.7 H Absolute Lymphs (auto) 2.24 Nucleated RBC % 0 Sodium 138 Potassium 3.8 Chloride 105 Carbon Dioxide 24.0 Anion Gap 9 BUN 11 Creatinine 1.02 Estim Creat Clear Calc 99.02 Est GFR (MDRD) Af Amer 78 Est GFR (MDRD) Non-Af 65 BUN/Creatinine Ratio 10.8 Glucose 177 H Calcium 9.1 Total Bilirubin 0.30 AST 20 ALT 45 Alkaline Phosphatase 119 H Troponin I High Sens < 3 L 4 Total Protein 7.5 Albumin 3.6 Globulin 3.9 Albumin/Globulin Ratio 0.9 Lipase 40 L Serum , Qual NEGATIVE Radiography Diagnostic Testing: Clinical Impression(s) from Imaging Studies Chest X-Ray 04/14/24 20:09 IMPRESSION: No acute cardiopulmonary process. Reading Location: [facility] Abdomen/Pelvis CT 04/14/24 21:47 IMPRESSION: 1. No acute process. 2. Mild hepatic steatosis and splenomegaly. One or more dose reduction techniques were used (e.g., Automated exposure control, adjustment of the mA and/or kV according to patient size, use of iterative reconstruction technique). Reading Location: [facility] Discharge Plan Triage Chief Complaint: Hypertension ED Provider: Chay Ag Dx/Rx/DC Orders Clinical Impression: Gastritis, Abdominal pain, Chest pain Instructions: Understanding Gastritis, ED Chest Pain, Noncardiac Prescriptions: New sucralfate [Carafate] 1 gram tablet 1 g PO Q6H Qty: 60 0RF ondansetron 4 mg tablet,disintegrating 4 mg PO Q8H PRN PRN (Reason: Nausea) Qty: 10 0RF dicyclomine 10 mg capsule 20 mg PO TIDAC Qty: 20 0RF No Action (DME) Wrist Brace Misc See Rx Instructions .Route Qty: 2 0RF Rx Instructions: As directed amlodipine 5 mg tablet 5 mg PO QDAY buspirone 15 mg tablet 15 mg PO TID Qty: 90 2RF clonazepam [Klonopin] 0.5 mg tablet 0.5 mg PO DAILY PRN (Reason: anxiety) Qty: 15 1RF (DME) OneTouch Verio test strips Strip See Rx Instructions .Route Qty: 200 5RF Rx Instructions: 5x/day (DME) PEDRITO Ankle Brace Misc See Rx Instructions .Route Qty: 1 0RF Rx Instructions: As directed (DME) pen needle, diabetic [BD Ultra-Fine Ivet Pen Needle] 32 gauge x 5/32 needle See Rx Instructions .Route Qty: 100 5RF Rx Instructions: daily metformin 1,000 mg tablet 1,000 mg PO BID Qty: 180 1RF pantoprazole 40 mg tablet,delayed release (DR/EC) 40 mg PO DAILY Qty: 30 2RF Primary Care Provider: Cindy Acosta Referrals: Cindy Acosta MD [Primary Care Provider] - Dave Medrano MD [Med Staff - Active Staff] - 3-5 Days Activity Restrictions/Additional Instructions: Labs are stable CT scan no acute process. Previous gastritis from your EGD. Continue pantoprazole. Take Carafate as prescribed. Zofran and dicyclomine as needed. Follow-up with Dr. Medrano as you had EGD from him in the past. Print Language: [place] Irish Disposition Disposition: Home, Self Care
[2024-04-14] MEDS: Dicyclomine 10 MG Capsule 20 MG PO (20:18)
[2024-04-14] MEDS: Ondansetron 4 MG/2 ML Vial IV (20:18)
[2024-04-14 20:22] VITALS: BP 175/92; PULSE 86; RESP 12; O2SAT 98
[2024-04-14 20:23] LABS: Absolute Lymphocyte Count 2.24 X10^3/uL (0.83-4.51); Absolute Neutrophil Count 12.7 X10^3/uL (2.0-7.7); Basophil# 0.03 X10^3/uL; Basophil% 0.2 % (0-1); Eosinophil# 0.15 X10^3/uL; Eosinophils% 0.9 % (0-5); Hematocrit 38.2 % (37-47); Hemoglobin 12.3 g/dL (12.0-15.0); Lymphocyte # 2.24 X10^3/ul (0.83-4.51); Lymphocyte % 14.2 % (19-41); Mean Corp Hgb Conc 32.2 g/dL (32-36); Mean Corpuscular Hgb 24.6 pg (27.0-32.0); Mean Corpuscular Volume 76.2 fL (81-99); Mean Platelet Vol. 10.5 fl (6.2-12.0); Monocyte# 0.65 X10^3/uL; Monocyte% 4.1 % (0-10); NRBC Flagged by Analyzer 0 % (0-5); Neutrophil # 12.65 X10^3/uL (2.7-7.7); Neutrophil % 80.1 % (47-70); Platelet Count 330 K/mm3 (150-450); RBC Distribution Width CV 15.1 % (11.6-14.6); RBC Distribution Width SD 41.5 fl (35.1-43.9); Red Blood Count 5.01 M/mm3 (4.2-5.4); White Blood Count 15.8 K/mm3 (4.4-11.0)
[2024-04-14 20:36] LABS: Internal QC Validated? YES +Cl - CLEAR BKGD; Pregnancy, Serum, hCG Quali. NEGATIVE Negative
[2024-04-14 20:42] LABS: ALB/GLOB Ratio 0.9 RATIO (0.9-2.4); AST(SGOT) 20 U/L (15-37); Alanine Aminotransfer ALT/SGPT 45 U/L (13-56); Albumin, Serum 3.6 g/dL (3.2-5.0); Alkaline Phosphatase 119 U/L (45-117); Anion Gap 9 (5-15); BUN 11 mg/dL (7-18); BUN/Creat Ratio 10.8 RATIO (10-20); Calcium,Total 9.1 mg/dL (8.5-10.1); Chloride 105 mmol/L (98-107); Creatinine, Serum 1.02 mg/dL (0.55-1.02); EST Glomerular Filtration Rate 65 mL/min (>60); Est Glom Filt Rate - Afr Amer 78 mL/min (>60); Estimated Creatinine Clearance 99.02 ml/min; Globulin 3.9 g/dL (2.2-4.2); Glucose 177 mg/dL (74-106); Lipase 40 U/L (73-393); Potassium 3.8 mmol/L (3.5-5.1); Protein, Total 7.5 g/dL (6.4-8.2); Sodium Level 138 mmol/L (136-145); Troponin-I HS (w/2H Reflex) < 3 pg/mL (3.0-54.0)
[2024-04-14 21:00] VITALS: BP 165/85; PULSE 69; RESP 18; O2SAT 96
[2024-04-14] MEDS: 0.9% Normal Saline (500mL Bag) 500 ML 1000 ML IV (21:13)
--- NOTE | 2024-04-14 21:47 | CT_ITS ---
PROCEDURE: CT abdomen pelvis with IV contrast REASON FOR EXAM: Pain TECHNIQUE: Multiple contiguous axial images through the abdomen and pelvis were obtained after the administration of intravenous contrast. Two-dimensional coronal and sagittal reformatted images were reconstructed. Low-dose imaging technique was utilized. COMPARISON: None. FINDINGS: Lung bases are clear. Mild hepatic steatosis. Mild splenomegaly measuring up to 16 mm in AP dimension. Pancreas and adrenal glands are intact. Gallbladder is satisfactory. No significant biliary ductal dilation. Kidneys enhance symmetrically. No suspicious renal mass, calculi or hydronephrosis. Urinary bladder is intact. Uterus is present. IUD in place. Dominant left ovarian follicle. No bowel obstruction, focal bowel wall thickening or significant perienteric inflammation. Normal appendix. No pelvic free fluid. No free air. No abdominal aortic aneurysm more suspicious adenopathy. Superficial soft tissues are intact. No acute osseous abnormality. CT/Abdomen/Pelvis W IV Cont ONLY IMPRESSION: 1. No acute process. 2. Mild hepatic steatosis and splenomegaly. One or more dose reduction techniques were used (e.g., Automated exposure contr ol, adjustment of the mA and/or kV according to patient size, use of iterative reconstruction technique). Reading Location: [facility]
[2024-04-14 22:00] VITALS: BP 162/80; PULSE 74; RESP 14; O2SAT 98
[2024-04-14 22:18] LABS: Reflex Troponin-HS? (from REC) Y
[2024-04-14] MEDS: Famotidine 200 MG/20 ML MDV 20 MG in 0.9% Normal Saline (Pres. free 8 ML 300 MG IV (22:46)
[2024-04-14 22:47] VITALS: BP 172/67; PULSE 71; RESP 14; O2SAT 98
[2024-04-14 23:00] VITALS: BP 154/72; PULSE 70; RESP 18; O2SAT 98
[2024-04-14 23:07] LABS: Troponin-I HS 4 pg/mL (3.0-54.0)
[2024-04-15] VITALS: BP 159/93; PULSE 75; RESP 18; O2SAT 99
[2024-04-15] MEDS: Lidocaine 2% Viscous15 ML UDC 15 ML PO (00:11)
[2024-04-15] MEDS: Dicyclomine 20 MG/2 ML Vial IM (00:11)
[2024-04-15] MEDS: Metoclopramide 10 MG/2 ML Vial 5 MG IV (00:11)
[2024-04-15] MEDS: Mag Hydrox/Al Hydrox/Simeth 30 ML UDC PO (00:11)
[2024-04-15 00:39] VITALS: BP 140/68; PULSE 64; RESP 18; TEMP 36.8; O2SAT 98
== END 2024-04-15 00:46 | disposition home or self-care (01) ==
PROVIDERS: Emergency Provider Emergency Medicine; PCP Internal Medicine; Visit Provider Emergency Medicine
DX: I10 Essential (primary) hypertension (principal); E11.9 Type 2 diabetes mellitus without complications; R07.9 Chest pain, unspecified; K29.70 Gastritis, unspecified, without bleeding; R10.9 Unspecified abdominal pain; Z79.899 Other long term (current) drug therapy; Z79.84 Long term (current) use of oral hypoglycemic drugs; K21.9 Gastro-esophageal reflux disease without esophagitis; F41.9 Anxiety disorder, unspecified
CPT/HCPCS: 71045; 74177; 80053; 83690; 84484; 84703; 85025; 93005; 96361; 96372; 96374; 96375; 99285; Q9967; A4216; J2405

== ENCOUNTER 2024-10-15 13:30 | Outpatient (RCR) | payer MEDICARE, MEDICAID, SELFPAY ==
--- NOTE | 2024-09-15 15:57 | HP.PTEVAL_ITS ---
Patient's Visit Information Visit Information Visit Information: DORY HENDERSON is a 39 year old F referred to Physical Therapy by Dr. Cindy Acosta MD with a diagnosis of Pain in Bilateral Hips. Date of Evaluation: 09/15/24 Physical Therapist: Jordyn Meza DPT Visit Plan Frequency: 2x /Week Duration: 4 Weeks Plan: Focus on core strength/stabilization HEP Given IE: TA Contraction, Bridge, Clams, Prone Hip Extn Subjective Subjective: Patient reports bilateral hip and low back pain- its been going on for a long time. Agg: getting out of bed, standing or walking for a long period of time, squatting down or hard to sustain or getting back up. Worst: 6/10 The pain is located in both hips and along the the belt line. When she was this time she felt like the hip was coming out of the socket. Eases: rest, staying off of her legs/hips or laying flat Best: 0/10. Describes the pain as sharp and shooting and then dulls out. As the day wears on its more of a dull pain. She has three toddlers at home- so she is active with them- no specific exercise program. She has 4 kids (12/06/05/11 months). She thought it was getting better after her last but feels like its getting worse now. She is now being woken at night and shifting in bed is worse. When she first gets up the pain radiates down to her toes- it takes about 30 min and the pain goes away. No N/T. No loss or change in bowel or bladder. Work: does not work outside of her home. Fully I with all of her dressing, driving and bathing- she does need help getting out of the tub due to being so low to the ground. She has not had images of her lumbar spine or hips. No medication or injections. PMHx/Meds: no change since updated in chart. Objective Objective: Posture: forward head, rounded shoulders- can correct with verbal cues Gait: no deviation noted HR/TR: able without deficit SLS: 15 sec without LOB- mild increase in sway- mild hip drop bilateral ROM: Lumbar: WNL-Pain with side bending to the left and rotation bilateral, LE: WNL Strength: Core: poor, Hip: Right: Flexion: 4-/5, Extn: 4/5, IR/ER: 4-/5, Abd: 4- /5, Knee: 4+/5, Ankle: 5/5 Left: Hip: 4/5 throughout, Knee: 4+/5, Ankle: 5/5 Flex: HS: moderate, Gastroc: moderate Special Test: LLD: negative, Pelvic Alignment: WNL Sensation: WNL to gross touch bilateral Palpation: tender along parapsinals L3-sacrum, greater troch bilateral, piriformis bilateral Special Tests R Hip Scour: Negative R Hip Quadrant - Intraarticular Pathology: Negative R Hip ARA - Intraarticular Pathology: Positive R Hip FADDIR - Labrum: Positive R Hip Trendelenberg - Glut Medius: Negative L Hip Scour: Negative L Hip Quadrant - Intraarticular Pathology: Negative L Hip ARA - Intraarticular Pathology: Positive L Hip FADDIR - Labrum: Positive L Hip Trendelenberg - Glut Medius: Negative Balance/Special Test Scores Lower Extremity Functional Score: 40 Goals Goal 1:: Patient will be I with HEP and progression Goal Time Frame: 4-6 Weeks Goal 2:: Patient will maintain proper posture t/o tx to demo increased core s/s. Goal Time Frame: 4-6 Weeks Goal 3:: Patient will report sleeping through the night for 1 week Goal Time Frame: 4-6 Weeks Goal 4:: Patient will report 80% improvement Goal Time Frame: 4-6 Weeks Rehabilitation Potential Physical Therapy Diagnosis: Patient presents with decreased LE and core strength/stabilization and muscular endurance leading to increased pain with ADL's. Rehabilitation Potential: Good Anticipated Interventions Patient/Client Instruction: Educate patient on: Benefits of Fitness Program Therapeutic Exercise to Include: Strength training, Endurance training, Balance training, Coordination, Agility training, Body mechanics, Postural training, Flexibilty training, Gait and locomotor training, Neuromotor development, Passive ROM, Active ROM, Dynamic Lumbar Stabilization and Scapular Strength/Stabilization For the Purpose of:: To improve muscle performance and motor function TENS: Yes Cryotherapy (ice pack, ice massage): Yes Thermo therapy (hot pack): Yes Ultrasound (thermal/non thermal): Yes Text: Thank you for the opportunity to evaluate your patient. For Medicare and Medicare HMO plans, please review the plan of care and approve it. It will need to be FAXED BACK to us at [phone] for Medicare purposes. For Medicare only, by signing this I certify the plan of care. Please let me know if there are questions or concerns regarding this plan of care. Physician Signature: Date:
--- NOTE | 2025-03-19 10:48 | HP.PT.NRP ---
Patient Information Patient Information: DORY HENDERSON was seen in my office for initial evaluation on 09/15/24. The following Plan of Care was established for this patient: POC Established Initial Frequency: 2x /Week Initial Duration: 4 Weeks Anticipated Interventions Patient/Client Instruction: Educate patient on: Benefits of Fitness Program Therapeutic Exercise to Include: Strength training, Endurance training, Balance training, Coordination, Agility training, Body mechanics, Postural training, Flexibilty training, Gait and locomotor training, Neuromotor development, Passive ROM, Active ROM, Dynamic Lumbar Stabilization and Scapular Strength/Stabilization For the Purpose of:: To improve muscle performance and motor function TENS: Yes Cryotherapy (ice pack, ice massage): Yes Thermo therapy (hot pack): Yes Ultrasound (thermal/non thermal): Yes Last Seen Last Seen: This patient was last seen in our office . Pertinent comments regarding their Physical therapy will appear below: Pt has not attended PT in over 30 days, appropriate to d/c and return to MD for further evaluation as needed. At this point I will be discontinuing this patient from physical therapy. I would be happy to see this patient again in the future if found appropriate by the physician. Thank you! Jordyn Meza, PAYTON Balance/Gait/Functional tests Balance/Special Test Scores Lower Extremity Functional Score: 40
== END 2024-10-15 19:00 | disposition home or self-care (01) ==
LOC: PT 13:30
PROVIDERS: PCP Internal Medicine; Referring Provider Internal Medicine; Visit Provider Internal Medicine
DX: M25.571 Pain in right ankle and joints of right foot (principal); M25.551 Pain in right hip; M25.552 Pain in left hip; G89.29 Other chronic pain
CPT/HCPCS: 97110; 97162

== ENCOUNTER → 2025-01-26 | Outpatient (CLI) | payer MEDICARE, MEDICAID, SELFPAY ==
--- OUTSIDE RECORDS SUMMARY | 2025-01-26 19:52 | XMS RPT_ITS | CCD ---
Author Organization [facility] Care Team Providers Care Director Diversity Name Role Phone DR YANELIS JONES MD Primary Care Physician Dr. Yanelis Jones Primary Care Provider Lizandro WHITFIELD, NAHID Vasquez Attending Provider Dr. Yanelis Jones Referring Provider [phone] DR YANELIS JONES MD Primary Care Physician [phone] BROOKS ACOSTA MD Primary Care Physician GEORGE DE OLIVEIRA MD Attending Unavailable BROOKS ACOSTA MD Primary Care Unavailable GEORGE DE OLIVEIRA MD Attending Unavailable BROOKS ACOSTA MD Primary Care Unavailable BROOKS ACOSTA MD Primary Care Unavailable GEORGE DE OLIVEIRA MD Attending Unavailable BROOKS ACOSTA MD Primary Care Unavailable RAYNE MARTI Attending Unavailable BROOKS ACOSTA MD Primary Care Unavailable ESTRADA LYNN Attending Unavailable BROOKS ACOSTA MD Primary Care Unavailable RADHA HANSON Admitting Unavailable ESTRADA LYNN Attending Unavailable BROOKS ACOSTA MD Primary Care Unavailable GEORGE DE OLIVEIRA MD Attending Unavailable GEORGE DE OLIVEIRA MD Attending Unavailable DR YANELIS JONES MD Primary Care Unavailable GEORGE DE OLIVEIRA MD Attending Unavailable DR YANELIS JONES MD Primary Care Unavailable GEORGE DE OLIVEIRA MD Attending Unavailable BROOKS ACOSTA MD Primary Care Unavailable DR YANELIS JONES MD Primary Care Unavailable PROVIDER, UNKNOWN Attending GEORGE Herrera MD Attending Unavailable BROOKS ACOSTA MD Primary Care Unavailable BROOKS ACOSTA MD Primary Care Unavailable GEORGE DE OLIVEIRA MD Attending Unavailable GEORGE DE OLIVEIRA MD Consulting Unavailable GEORGE DE OLIVEIRA MD Attending Unavailable ZULEYKA LOCO, DR FREY Primary Care Unavailable ZULEYKA LOCO, DR FREY Primary Care Unavailable PROVIDER, UNKNOWN Attending Unavailable GEORGE DE OLIVEIRA MD Consulting Unavailable GEORGE DE OLIVEIRA MD Attending Unavailable ZULEYKA LOCO, DR FREY Primary Care Unavailable GEORGE DE OLIVEIRA MD Attending Unavailable ZULEYKA LOCO, DR FREY Primary Care Unavailable BROOKS ACOSTA MD Primary Care Unavailable DEJAN LOCO, DR KAREY Joseph Admitting Gopi JARVIS MD, DR KAREY Joseph Attending ARJUN Calvo Attending Unavailable YANELIS JONES Primary Care Unavailable REFERRED, SELF Referring Unavailable BROOKS ACOSTA MD Primary Care Unavailable GEORGE DE OLIVEIRA MD Consulting Unavailable GEORGE DE OLIVEIRA MD Attending Unavailable BROOKS ACOSTA MD Primary Care [facility] Attending Unavailable BROOKS ACOSTA MD Primary Care Unavailable RAGTED, YVON Attending Unavailable BROOKS ACOSTA MD Primary Care Unavailable [facility] Attending Unavailable BROOKS ACOSTA MD Primary Care Unavailable [facility] Attending Unavailable BROOKS ACOSTA MD Primary Care Unavailable GEORGE DE OLIVEIRA MD Attending Unavailable BROOKS ACOSTA MD Primary Care Unavailable GEORGE DE OLIVEIRA MD Attending Unavailable BROOKS ACOSTA MD Primary Care Unavailable GEORGE DE OLIVEIRA MD Attending Unavailable Dave, Brooks Primary Care Unavailable Jessika Courtney Attending Unavailable [place], Brooks Primary Care Unavailable Sharad Santiago Attending Unavailable Florentino Farooq Attending Unavailable [place], Brooks Primary Care Unavailable [place], Brooks Referring Unavailable Dave, Brooks Referring Unavailable Dave, Brooks Attending Unavailable [place], Brooks Primary Care Unavailable Sharad Santiago Attending Unavailable Dave, Brooks Primary Care Unavailable Dave, Brooks Referring Unavailable Dave, Brooks Primary Care Unavailable [place], Brooks Attending Unavailable Florentino Farooq Attending Unavailable [place], Brooks Referring Unavailable [place], Brooks Primary Care Unavailable [place], Brooks Referring Unavailable [place], Brooks Attending Unavailable [place], Brooks Primary Care Unavailable Chay Ag Attending Unavailable Dave, Brooks Primary Care Unavailable Dave, Brooks Primary Care Unavailable Jessika Courtney Attending Unavailable [place], Brooks Primary Care Unavailable Jessika Courtney Attending Unavailable [place], Brooks Primary Care Unavailable Sharad Santiago Attending Unavailable Sharad Santiago Attending Unavailable Dave, Brooks Primary Care Unavailable Jessika Courtney Attending Unavailable Dave, Brooks Primary Care Unavailable Jessika Courtney Attending Unavailable [place], Brooks Primary Care Unavailable Sharad Santiago Attending Unavailable Dave, Brooks Referring Unavailable Dave, Brooks Primary Care Unavailable Sriram Chen Attending Unavailable [place], Brooks Primary Care Unavailable Adarsh Wilkins Attending Unavailable [place], Brooks Primary Care Unavailable Jessika Courtney Attending Unavailable Dave, Brooks Primary Care Unavailable Jessika Courtney Attending Unavailable Dave, Brooks Primary Care Unavailable Jessika Courtney Attending Unavailable [place], Brooks Primary Care Unavailable Sharad Santiago Attending Unavailable [place], Brooks Referring Unavailable Florentino Farooq Attending Unavailable [place], Brooks Primary Care Unavailable [place], Brooks Primary Care Unavailable Jessika Courtney Attending Unavailable Dave, Brooks Primary Care Unavailable Sharad Santiago Attending Unavailable Dave, Brooks Referring Unavailable [place], Brooks Primary Care Unavailable Dave, Brooks Attending Unavailable Allergies Allergy Classification Reported Allergen(s) Allergy Type Date of Onset Reaction(s) Facility exenatide (1 source) exenatide; Translations: [exenatide] Drug Allergy swelling and redness [facility] QUEtiapine (1 source) QUEtiapine; Translations: [quetiapine] Drug Allergy [facility] Sulfonamides (antibiotic) (1 source) Sulfonamide; Translations: [sulfa drugs] Drug Allergy [facility] (20 sources) QUEtiapine; Translations: [quetiapine] Drug Allergy 0 [facility] (20 sources) Sulfonamides (Antibiotic); Translations: [sulfa drugs] Drug allergy [facility] (3 sources) QUEtiapine; Translations: [quetiapine fumarate] Drug Allergy 1 Other [facility] (2 sources) Sulfonamides (Antibiotic) Propensity to adverse reactions 1 Diarrhea [facility] (20 sources) exenatide; Translations: [exenatide] Drug Allergy swelling and redness [facility] (1 source) Sulfonamides (Antibiotic); Translations: [SULFA ANTIBIOTICS] Propensity to adverse reactions to drug (disorder) 0 [facility] (1 source) exenatide Drug Allergy 5 [facility] (1 source) Sulfonamides (Antibiotic) Drug allergy (disorder) 5 [facility] Medications Current Medications Medication Drug Class(es) Dates Sig (Normalized) Sig (Original) acetaminophen 500 mg oral tablet (4 sources) Start: 05-09-2020 take 1000 mg by mouth every eight hours as needed Acetaminophen Active 1000 MG PO EVERY 8 HOURS NEEDED May 09, 2020 1:00am Start: 05-07-2020 take 500 mg by mouth every six hours as needed Acetaminophen Active 500 MG PO EVERY 6 HOURS NEEDED May 07, 2020 1:00am acetaminophen 325 mg / butalbital 50 mg / caffeine 40 mg oral tablet (19 sources) Barbiturate, Central Nervous System Stimulant, Methylxanthine Start: 05-07-2020 take 1 tablet by mouth every four hours as needed Ogwikojlzd-Nknfdoxiyunxa-Kgrd Active 1 - 2 TABLET PO EVERY 4 HOURS NEEDED May 07, 2020 1:00am Start: 02-02-2020 End: 02-09-2020 take 1 capsule by mouth every four hours as needed for headache, then take 6 capsules by mouth once daily as needed for headache Fioricet oral capsule - use generic Fioricet tablet Dose = 1 cap(s), Oral, q4h, PRN Headache, not to exceed 6 capsules/day, # 30 cap(s), 1 Refill(s) Start Date: 02/02/20 Stop Date: 02/09/20 Status: Ordered amLODIPine 5 mg oral tablet (20 sources) Dihydropyridine Calcium Channel Meagan Start: 12-26-2024 take 1 tablet by mouth once daily amLODIPine 5 mg oral tablet 1 tab(s), Oral, qDay, # 30 tab(s), 5 Refill(s), Pharmacy: [facility], 162.6, cm, 11/06/24 11:35:00 EDT, Height, kg, 11/06/24 11:35:00 EDT, Dosing Weight Start Date: 12/26/24 Status: Ordered Medication Dispense Status: Completed Quantity: 30.0 Unit: tab(s) Total Allowed Fills: 1 Fills Dispensed: 0 Start: 01-28-2024 End: 07-26-2024 amLODIPine 5 mg oral tablet Dose : 5 mg = 1 tab(s), Oral, qDay, # 30 tab(s), 5 Refill(s), Pharmacy: [place] [id number], 162.6, cm, 01/28/24 9:39:00 EST, Height, kg, 01/28/24 9:39:00 EST, Dosing Weight Start Date: 01/28/24 Stop Date: 07/26/24 Status: Ordered Quantity: 30.0 Unit: tab(s) Repeat number: 6 Start: 09-27-2023 End: 01-25-2024 amLODIPine 5 mg oral tablet Dose : 5 mg = 1 tab(s), Oral, qDay, # 60 tab(s), 1 Refill(s), Pharmacy: [place] [id number], 162.6, cm, 09/27/23 9:48:00 EDT, Height, kg, 09/23/23 13:59:00 EDT, Dosing Weight Start Date: 09/27/23 Stop Date: 01/25/24 Status: Ordered Start: 02-22-2023 End: 09-20-2023 take 1 tablet by mouth once daily amLODIPine 2.5 mg oral tablet 1 tab(s), Oral, qDay, # 30 tab(s), 0 Refill(s), Pharmacy: [place] [id number], 162, cm, 08/06/23 9:01:00 EDT, Height, kg, 01/04/24 11:07:00 EST, Dosing Weight Start Date: 08/30/23 Status: Ordered amoxicillin 875 mg / clavulanate 125 mg oral tablet (4 sources) Penicillin-class Antibacterial Start: 01-22-2021 End: 02-24-2021 take 1 tablet by mouth every twelve hours Amoxicillin-Pot Clavulanate Active 1 TABLET PO Q12H February 24, 2021 3:44pm Aspirin (11 sources) Platelet Aggregation Inhibitor, Nonsteroidal Anti-inflammatory Drug Start: 02-02-2020 atomoxetine 25 mg oral capsule (1 source) Norepinephrine Reuptake Inhibitor Start: 09-04-2024 atomoxetine 25 mg oral capsule Dose : 25 mg = 1 cap(s), Oral, qAM, 0 Refill(s) Start Date: 09/04/24 Status: Ordered Medication Dispense Status: Completed Total Allowed Fills: 1 Fills Dispensed: 0 busPIRone hydrochloride 15 mg oral tablet (18 sources) Start: 04-14-2024 busPIRone 15 mg oral tablet Dose : 15 mg = 1 tab(s), Oral, TID, 0 Refill(s) Start Date: 04/14/24 Status: Ordered Medication Dispense Status: Completed Total Allowed Fills: 1 Fills Dispensed: 0 Start: 09-27-2023 busPIRone 10 m g oral tablet Dose : 10 mg = 1 tab(s), BID, 0 Refill(s) Start Date: 09/27/23 Status: Ordered Repeat number: 1 Start: 01-04-2023 busPIRone 10 m g oral tablet Dose : 10 mg = 1 tab(s), Oral, TID, # 270 tab(s), 0 Refill(s) Start Date: 01/04/23 Status: Ordered clonazePAM 0.5 mg oral tablet (20 sources) Benzodiazepine Start: 01-04-2023 take 1 tablet by mouth once daily for anxiety clonazePAM 0.5 mg oral tablet take 1 tablet by mouth daily if needed for anxiety Start Date: 01/04/23 Status: Ordered Medication Dispense Status: Completed Total Allowed Fills: 1 Fills Dispensed: 0 dexamethasone 1 mg oral tablet (2 sources) Corticosteroid Start: 07-17-2024 End: 07-18-2024 dexAMETHasone 1 mg oral tablet Dose : 1 mg = 1 tab(s), Oral, qHS, # 1 tab(s), 0 Refill(s), Pharmacy: [facility], 162.6, cm, 07/17/24 9:06:00 EDT, Height, kg, 07/17/24 9:06:00 EDT, Dosing Weight Start Date: 07/18/24 Status: Ordered Quantity: 1.0 Unit: tab(s) Repeat number: 1 0.5 ml dulaglutide 1.5 mg/ml auto-injector (1 [...] Ordered ferrous sulfate 325 mg oral tablet (2 sources) Start: 12-08-2023 IRON (ferrous sulfate 325 mg) 65 mg oral tablet Dose : 325 mg = 1 tab(s), Oral, qDay, Take with food., # 60 tab(s), 1 Refill(s), Pharmacy: [facility], 162.6, cm, 12/06/23 10:13:00 EDT, Height, kg, 12/06/23 10:13:00 EDT, Dosing Weight Start Date: 12/08/23 Status: Ordered Start: 04-13-2021 ferrous sulfat e 325 mg (65 mg elemental iron) oral tablet Dose : 325 mg = 1 tab(s), Oral, BID, # 60 tab(s), 1 Refill(s), Pharmacy: [facility] [address], 162.6, cm, 04/11/21 9:07:00 EST, Height, [...] AND DINNER Start Date: 02/17/21 Status: Ordered Start: 02-17-2021 inject 5 [IU] by sub cutaneous injection three times daily at dinner HumaLOG KwikPen 100 units/mL injectable PEN inject 5 units subcutaneously three times a day WITH BREAKFAST, LUNCH AND DINNER Start Date: 02/17/21 Status: Ordered hydroCHLOROthiazide 25 mg oral tablet (12 sources) Thiazide Diuretic Start: 07-17-2024 hydroCHLOROthiazide 25 mg oral tablet Dose : 25 mg = 1 tab(s), Oral, qDay, # 30 tab(s), 3 Refill(s), Pharmacy: [facility], 162.6, cm, 07/17/24 9:06:00 EDT, Height, kg, 07/17/24 9:06:00 EDT, Dosing Weight Start Date: 07/17/24 Status: Ordered Medication Dispense Status: Completed Quantity: 30.0 Unit: tab(s) Total Allowed Fills: 4 Fills Dispensed: 0 Start: 08-29-2021 End: 08-24-2022 hydroCHLOROthiazide 25 mg or al tablet Dose : 25 mg = 1 tab(s), Oral, qDay, # 90 tab(s), 3 Refill(s), Pharmacy: [facility] [address], 162, cm, 08/29/21 9:35:00 EDT, Height Start Date: 08/29/21 Stop Date: 08/24/22 Status: Ordered Start: 06-17-2020 End: 01-13-2021 hydroCHLOROthiazide 25 mg or al tablet Dose : 25 mg = 1 tab(s), Oral, qDay, # 30 tab(s), 6 Refill(s), [facility] [address], [address], cm, 06/17/20 11:24:00 EDT, Height, kg, 06/17/20 11:24:00 EDT, Dosing Weight Start Date: 06/17/20 Stop Date: 01/13/21 Status: Ordered ibuprofen 600 mg oral tablet (4 sources) Nonsteroidal Anti-inflammatory Drug Start: 12-08-2023 End: 12-18-2023 ibuprofen 600 mg oral tablet Dose : 600 mg = 1 tab(s), Oral, q6h, Take with food or milk., X 10 day(s), # 42 tab(s), 0 Refill(s), 12/18/23 9:08:00 AM EDT, Pharmacy: [facility], 162.6, cm, 12/06/23 10:13:00 EDT, Height, kg, 12/06/23 10:13:00 EDT, Dosing Weight Start Date: 12/08/23 Stop Date: 12/18/23 Status: Ordered Start: 05-09-2020 End: 05-01-2021 take 600 mg by mouth every six hours as needed Ibuprofen Active 600 MG PO EVERY 6 HOURS NEEDED 0 May 09, 2020 1:00am 3 ml insulin isophane, human 100 unt/ml pen injector (20 sources) Start: 04-23-2023 inject 1 dose by subcutaneous injection once daily at bedtime HumuLIN N KwikPen 100 units/mL subcutaneous PEN Dose : 30 unit(s) =, Subcutaneous, qHS, # 5 EA, 0 Refill(s) Start Date: 04/23/23 Status: Ordered Start: 04-23-2023 inject 1 dose by sub cutaneous injection twice daily HumuLIN N KwikPen 100 units/mL subcutaneous PEN Dose : 10 unit(s) =, Subcutaneous, BID, # 5 EA, 0 Refill(s) Start Date: 04/23/23 Status: Ordered Start: 02-17-2021 HumuLIN N Kwik Pen 100 units/mL subcutaneous PEN inject 25 units subcutaneously twice a day before meals Start Date: 02/17/21 Status: Ordered insulin lispro 100 unt/ml injectable solution (16 sources) Insulin Analog Start: 12-06-2023 inject 1 dose by subcutaneous injection at dinner insulin lispro (Humalog) 100 units/mL injectable solution Dose : 30 unit(s) =, Subcutaneous, with dinner, 0 Refill(s) Start Date: 12/06/23 Status: Ordered Start: 04-23-2023 Insulin Lispro KwikPen 100 units/mL injectable solution Dose : 25 unit(s) =, with breakfast and lunch, 0 Refill(s) Start Date: 04/23/23 Status: Ordered labetalol hydrochloride 100 mg oral tablet (4 sources) beta-Adrenergic Meagan Start: 05-09-2020 take 100 mg by mouth three times daily Labetalol Active 100 MG PO THREE TIMES A DAY May 09, 2020 1:00am Start: 12-19-2013 End: 12-21-2013 take 100 mg by mouth twice daily Labetalol Discontinued 100 MG PO TWICE A DAY December 19, 2013 12:00am December 21, 2013 4:26pm 3 ml liraglutide 6 mg/ml pen injector (2 sources) GLP-1 Receptor Agonist Start: 09-04-2024 inject 1 dose by subcutaneous injection once daily liraglutide 18 mg/3 mL subcutaneous Pen Dose : 1.8 mg =, Subcutaneous, qDay, # 27 mL, 3 Refill(s), Pharmacy: [facility], 162.6, cm, 09/04/24 14:51:00 EDT, Height, kg, 09/04/24 14:51:00 EDT, Dosing Weight Start Date: 09/04/24 Status: Ordered Medication Dispense Status: Completed Quantity: 27.0 Unit: mL Total Allowed Fills: 4 Fills Dispensed: 0 Start: 07-31-2024 inject 1 dose by sub cutaneous injection once daily Victoza 18 mg/3 mL subcutaneous Pen Dose : 1.2 mg =, Subcutaneous, qDay, # 6 mL, 0 Refill(s), Pharmacy: [facility], 162.6, cm, 07/31/24 10:51:00 EDT, Height, kg, 07/31/24 10:51:00 EDT, Dosing Weight Start Date: 07/31/24 Status: Ordered Quantity: 6.0 Unit: mL Repeat number: 1 lisinopril 40 mg oral tablet (6 sources) Angiotensin Converting Enzyme Inhibitor Start: 12-01-2021 take 1 tablet by mouth once daily lisinopril 40 mg oral tablet take 1 tablet by mouth once daily Start Date: 12/01/21 Status: Ordered meclizine hydrochloride 25 mg oral tablet (1 source) Antiemetic Start: 03-23-2022 take 25 mg by mouth three times daily Meclizine Active 25 MG PO THREE TIMES A DAY March 23, 2022 1:00am metFORMIN hydrochloride 1000 mg oral tablet (20 sources) Biguanide Start: 07-17-2024 metFORMIN 1000 mg oral tablet (IR) Dose : 1,000 mg = 1 tab(s), Oral, BID, # 60 tab(s), 0 Refill(s) Start Date: 07/17/24 Status: Ordered Medication Dispense Status: Completed Quantity: 60.0 Unit: tab(s) Total Allowed Fills: 1 Fills Dispensed: 0 Start: 06-01-2022 MetFORMIN (Eqv -Glucophage XR) 500 mg oral tablet, EXTENDED RELEASE Dose : 1,000 mg = 2 tab(s), BID, 0 Refill(s) Start Date: 06/01/22 Status: Ordered Repeat number: 1 Start: 01-10-2022 metFORMIN 500 mg oral tablet (IR) Dose : 500 mg = 1 tab(s), Oral, qDay, # 30 tab(s), 0 Refill(s) Start Date: 01/10/22 Status: Ordered NIFEdipine 30 mg oral tablet (2 sources) Dihydropyridine Calcium Channel Meagan Start: 04-12-2021 End: 06-11-2021 Procardia XL 30 mg oral tablet, extended release Dose : 30 mg = 1 tab(s), Oral, qDay, 0 Refill(s) Start Date: 04/13/21 Status: Ordered omeprazole 40 mg delayed release oral capsule (16 sources) Proton Pump Inhibitor Start: 05-07-2020 Omeprazo le Active May 07, 2020 1:00am Start: 04-22-2020 take 40 mg by mouth once daily Omeprazole Active 40 MG PO DAILY 14 May 17, 2022 12:00am ondansetron 4 mg oral tablet (1 source) Serotonin-3 Receptor Antagonist Start: 10-18-2020 End: 12-17-2020 Zofran 4 mg oral tablet Dose : 4 mg = 1 tab(s), Oral, q4h, X 30 day(s), # 30 tab(s), 1 Refill(s), 12/17/20 10:12:00 EDT, Pharmacy: [facility] [address], 154, cm, 10/18/20 8:35:00 EDT, Height, kg, 09/13/20 9:16:00 EDT, Dosing Weight Start Date: 10/18/20 Stop Date: 12/17/20 Status: Ordered pantoprazole 40 mg delayed release oral tablet (20 sources) Proton Pump Inhibitor Start: 06-01-2022 take 1 tablet by mouth once daily pantoprazole 40 mg oral enteric coated tablet take 1 tablet by mouth once daily Start Date: 06/01/22 Status: Ordered Medication Dispense Status: Completed Total Allowed Fills: 1 Fills Dispensed: 0 Start: 02-17-2021 End: 08-16-2021 Protonix 40 mg oral enteric coated tablet Dose : 40 mg = 1 tab(s), Oral, qDay, # 30 tab(s), 2 Refill(s), Pharmacy: [facility] [address], 162, cm, 02/17/21 9:53:00 EST, Height, kg, 09/13/20 9:16:00 EDT, Dosing Weight Start Date: 02/17/21 Stop Date: 08/16/21 Status: Ordered Complete with DHA (12 sources) Start: 09-13-2020 Compl ete with DHA Oral, qDay, 0 Refill(s) Start Date: 09/13/20 Status: Ordered Multivitamins with Vitamin B Complex, Vitamin C, Minerals and L-Methylfolate oral capsule (18 sources) Start: 03-08-2023 take 1 capsule by mouth once daily Multivitamins with Vitamin B Complex, Vitamin C, Minerals and L-Methylfolate oral capsule Dose = 1 cap(s), Oral, Daily, 0 Refill(s) Start Date: 03/08/23 Status: Ordered Repeat number: 1 Start: 03-08-2023 take 1 capsule by mo uth once daily Multivitamins with Vitamin B Complex, Vitamin C, Minerals and L-Methylfolate oral capsule Dose = 1 cap(s), Oral, Daily, 0 Refill(s) Start Date: 03/08/23 Status: Ordered promethazine hydrochloride 25 mg oral tablet (1 source) Phenothiazine Start: 05-17-2022 take 25 mg by mouth every six hours Promethazine Active 25 MG PO EVERY 6 HOURS May 17, 2022 12:00am sennosides, group home 8.6 mg oral tablet (1 source) Start: 12-08-2023 senna (sennosi júnior) 8.6 mg oral tablet Dose : 8.6 mg = 1 tab(s), Oral, qHS, # 20 tab(s), 0 Refill(s), Pharmacy: [facility], 162.6, cm, 12/06/23 10:13:00 EDT, Height, kg, 12/06/23 10:13:00 EDT, Dosing Weight Start Date: 12/08/23 Status: Ordered vilazodone hydrochloride 20 mg oral tablet (3 sources) Start: 01-28-2024 vilazodone 20 mg oral tablet Dose : 20 mg = 1 tab(s), Oral, qDay, Take with food, 0 Refill(s) Start Date: 01/28/24 Status: Ordered Repeat number: 1 Vitamin D3 (17 sources) Start: 03-08-2023 Vitamin D3 Dos e : 2,000 mg =, qDay, 0 Refill(s) Start Date: 03/08/23 Status: Ordered Repeat number: 1 Start: 03-08-2023 Vitamin D3 Dos e : 2,000 mg =, qDay, 0 Refill(s) Start Date: 03/08/23 Status: Ordered Vitamin D3 1250 mcg (50,000 intl units) oral capsule (2 sources) Start: 07-31-2024 Vitamin D3 125 0 mcg (50,000 intl units) oral capsule Dose : 1,250 mcg = 1 cap(s), Oral, qWeek, # 12 cap(s), 0 Refill(s), Pharmacy: [facility], 162.6, cm, 07/31/24 10:51:00 EDT, Height, kg, 07/31/24 10:51:00 EDT, Dosing Weight Start Date: 07/31/24 Status: Ordered Medication Dispense Status: Completed Quantity: 12.0 Unit: cap(s) Total Allowed Fills: 1 Fills Dispensed: 0 Start: 07-31-2024 Vitamin D3 125 0 mcg (50,000 intl units) oral capsule Dose : 1,250 mcg = 1 cap(s), Oral, qWeek, # 12 cap(s), 0 Refill(s), Pharmacy: [place] [id number], 162.6, cm, 07/31/24 10:51:00 EDT, Height, kg, 07/31/24 10:51:00 EDT, Dosing Weight Start Date: 07/31/24 Status: Ordered Quantity: 12.0 Unit: cap(s) Repeat number: 1 Completed/Discontinued Medications Medication Drug Class(es) Dates Sig (Normalized) Sig (Original) glyBURIDE 5 mg oral tablet (2 sources) Sulfonylurea Start: 12-19-2013 End: 12-21-2013 take 5 mg by mouth twice daily at mealtime Glyburide Discontinued 5 MG PO TWICE DAILY WITH MEALS December 19, 2013 12:00am December 21, 2013 4:31pm naproxen 500 mg delayed release oral tablet (2 sources) Nonsteroidal Anti-inflammatory Drug Start: 12-21-2013 End: 12-22-2013 take 500 mg by mouth every twelve hours Naproxen Discontinued 500 MG PO Q12H December 21, 2013 4:29pm December 22, 2013 1:29pm sertraline 100 mg oral tablet (17 sources) Serotonin Reuptake Inhibitor Start: 04-28-2021 End: 11-24-2021 sertraline 100 mg oral tablet Dose : 100 mg = 1 tab(s), Oral, qDay, # 30 tab(s), 6 Refill(s), [facility]acy: [facility] [address], 162.6, cm, 04/11/21 9:07:00 EST, Height, kg, 04/28/21 9:58:00 EST, Dosing Weight Start Date: 04/28/21 Stop Date: 11/24/21 Status: Ordered Start: 05-07-2020 take 125 mg by mouth once moris y Sertraline Active 125 MG PO DAILY May 07, 2020 1:00am Start: 02-02-2020 sertraline 100 mg oral tablet 0 Refill(s) Start Date: 02/02/20 Status: Ordered zolpidem tartrate 5 mg oral tablet (6 sources) gamma-Aminobutyric Acid-ergic Agonist Start: 04-04-2021 Ambien 5 mg oral tablet Dose : 5 mg = 1 tab(s), Oral, qHS, PRN as needed for sleep, 0 Refill(s), 125.5 Start Date: 04/04/21 Status: Ordered Start: 01-24-2021 End: 03-25-2021 Ambien 5 mg oral tablet Dose : 5 mg = 1 tab(s), Oral, qHS, PRN as needed for sleep, X 30 day(s), # 30 tab(s), 1 Refill(s), 03/25/21 9:22:00 EST, Pharmacy: [facility] [address], [address], cm, 01/24/21 9:01:00 EST, Height, 123.8, kg, 09/13/20 9:16:00 EDT, Dosing Weight Start Date: 01/24/21 Stop Date: 03/25/21 Status: Ordered Problems Active Problems Problem Classification Problem Date Documented Date Episodic/Chronic Anxiety disorders (2 sources) Generalized anxiety disorder; Translations: [Anxiety disorder, unspecified] Onset: 03-18-2024 Chronic Conditions associated with dizziness or vertigo (2 sources) Benign paroxysmal positional vertigo; Translations: [Benign paroxysmal vertigo, unspecified ear] 03-23-2022 Episodic Diabetes mellitus with complications (1 source) Type 2 diabetes mellitus with hyperglycemia; Translations: [Type 2 diabetes mellitus with hyperglycemia] Onset: 09-10-2024 Chronic Diabetes mellitus without complication (20 sources) Type 1 diabetes mellitus; Translations: [Type 2 diabetes mellitus] Onset: 08-05-2024 09-23-2023 Chronic Diabetes or abnormal glucose tolerance complicating ; childbirth; or the puerperium (1 source) Diabetes mellitus during , childbirth and the puerperium; Translations: [Unspecified diabetes mellitus in , unspecified trimester] Onset: 09-23-2023 Chronic Diabetes or abnormal glucose tolerance complicating ; childbirth; or the puerperium (20 sources) Gestational diabetes mellitus; Translations: [Gestational diabetes mellitus, class A>1<] Onset: 04-11-2021 01-28-2020 Episodic Disorders of lipid metabolism (1 source) Hyperlipidemia 01-07-2025 Chronic Essential hypertension (20 sources) Hypertensive disorder; Translations: [Essential hypertension] Onset: 09-23-2023 06-17-2020 Chronic Hypertension complicating ; childbirth and the puerperium (12 sources) Pre-existing hypertension complicating , childbirth and puerperium; Translations: [Pre-existing essential hypertension complicating the puerperium] Onset: 04-11-2021 Chronic Hypertension complicating ; childbirth and the puerperium (2 sources) pre-eclampsia; Translations: [Unspecified pre-eclampsia, complicating the puerperium] 05-08-2020 Episodic Intestinal infection (1 source) Viral gastroenteritis; Translations: [Viral intestinal infection, unspecified] 05-17-2022 Episodic Menstrual disorders (12 sources) Irregular periods; Translations: [Secondary amenorrhea] 08-03-2022 Chronic Mood disorders (2 sources) Major depressive disorder, recurrent, in partial remission; Translations: [Major depressive disorder, single episode, moderate] Onset: 03-18-2024 Chronic Nonspecific chest pain (1 source) Chest pain; Translations: [Other chest pain] Onset: 09-23-2023 Episodic Nutritional deficiencies (3 sources) Vitamin D deficiency; Translations: [Vitamin D deficiency, unspecified] Onset: 01-07-2025 07-31-2024 Chronic Other aftercare (4 sources) Surgical follow-up 05-22-2024 Episodic Other complications of ; puerperium affecting management of mother (1 source) Anemia during the puerperium; Translations: [Anemia of the puerperium] Onset: 04-13-2021 Chronic Other complications of ; puerperium affecting management of mother (1 source) Retained placenta, without hemorrhage; Translations: [Retained placenta without hemorrhage] Onset: 04-13-2021 Episodic Other complications of (1 source) Maternal obesity complicating , childbirth and the puerperium, antepartum; Translations: [Obesity complicating , unspecified trimester] Onset: 09-23-2023 Chronic Other complications of (1 source) Finding related to ; Translations: [Other specified related conditions, unspecified trimester] Onset: 04-13-2021 Episodic Other complications of (1 source) Supervision of elderly multigravida, unspecified trimester; Translations: [ care: multiparous, older than 35 years (context-dependent category)] Onset: 09-23-2023 Episodic Other complications of (1 source) A/N care: poor obstetric history; Translations: [Supervision of with other poor reproductive or obstetric history, third trimester] Onset: 09-23-2023 Episodic Other female genital disorders (7 sources) Polyp of vagina 01-19-2022 Episodic Other liver diseases (2 sources) Fatty (change of) liver, not elsewhere classified; Translations: [Fatty (change of) liver, not elsewhere classified] Onset: 08-05-2024 Chronic Other nervous system disorders (20 sources) Carpal tunnel syndrome 10-03-2021 Chronic Other nervous system disorders (2 sources) Other chronic pain; Translations: [Other chronic pain] Onset: 09-10-2024 Chronic Other nervous system disorders (1 source) Attention and concentration deficit; Translations: [Attention and concentration deficit] Onset: 09-02-2024 Chronic Other nervous system disorders (1 source) Postoperative pain ; Translations: [Other acute postprocedural pain] Onset: 05-01-2024 Episodic Other non-traumatic joint disorders (2 sources) Pain in right ankle and joints of right foot; Translations: [Pain in right ankle and joints of right foot] Onset: 09-10-2024 Episodic Other non-traumatic joint disorders (2 sources) Pain in right hip; Translations: [Pain in right hip] Onset: 09-10-2024 Episodic Other non-traumatic joint disorders (2 sources) Pain in left hip; Translations: [Pain in left hip] Onset: 09-10-2024 Episodic Other nutritional; endocrine; and metabolic disorders (2 sources) Obesity; Translations: [Obesity, unspecified] 05-08-2020 Chronic Other nutritional; endocrine; and metabolic disorders (20 sources) Body mass index 30+ - obesity 09-23-2023 Chronic Other nutritional; endocrine; and metabolic disorders (4 sources) Body mass index 40+ - severely obese 07-17-2024 Chronic Other nutritional; endocrine; and metabolic disorders (1 source) Body mass index (BMI) 45.0-49.9, adult; Translations: [Body mass index [BMI] 45.0-49.9, adult] Onset: 01-07-2025 Chronic Other and delivery including normal (20 sources) Normal ; Translations: [ care status] Onset: 07-22-2020 09-27-2020 Episodic Comment on above: [facility] Status documented as Yes on Admission 6wk PP visit postprtum visit Other screening for suspected conditions (not mental disorders or infectious disease) (2 sources) Cortisol level abnormal 07-31-2024 Episodic Residual codes; unclassified (5 sources) Reduced libido 08-03-2022 Episodic Residual codes; unclassified (1 source) Pelvic organ finding; Translations: [Acquired absence of other genital organ(s)] Onset: 05-01-2024 Episodic Residual codes; unclassified (1 source) Past history of procedure; Translations: [Other specified postprocedural states] Onset: 05-01-2024 Episodic Residual codes; unclassified (5 sources) History of laparoscopy 05-01-2024 Episodic Unclassified (20 sources) Breast feeding (infant) (observable entity) 04-27-2020 Comment on above: [facility] Breast feeding Status documented as Yes on Admission Unclassified (20 sources) Patient encounter status 07-29-2020 Unclassified (20 sources) pre-eclampsia 05-24-2020 Unclassified (20 sources) Streptococcus agalactiae (organism) 04-11-2021 Unclassified (2 sources) Liver function test increased 07-31-2024 Unclassified (1 source) Cough, unspecified; Translations: [Cough, unspecified] Onset: 04-17-2024 Past or Other Problems Problem Classification Problem Date Documented Date Episodic/Chronic Contraceptive and procreative management (20 sources) Contraception ; Translations: [Intrauterine contraceptive device in situ] Onset: 01-28-2024 10-03-2021 Episodic Other connective tissue disease (1 source) Pain in right foot; Translations: [Pain in right foot] Onset: 07-21-2024 Episodic Other upper respiratory infections (4 sources) Acute sinusitis; Translations: [Acute sinusitis, unspecified] Onset: 04-17-2024 01-22-2021 Episodic Residual codes; unclassified (2 sources) 14 weeks gestation of ; Translations: [14 weeks gestation of ] Onset: 06-14-2023 Episodic Results Test Name Value Interpretation Reference Range Facility MR/BMS.BPon 01-13-2025 MR/BMS.BP [facility] [address], [address] [place] [address] OFFICE VISIT Date of Service: 01/13/25 MR#: [id number] Acct: [id number] Name: DORY HENDERSON Rep #: [id number] : 1985 Provider: Dr. Sharad Dumont se, DO Age/Sex: 39/F Location: [facility] [place].[facility] Status: Signed Intake Vital Signs 11/11/24 10:04 12/08/24 12:19 01/05/25 11:27 01/13/25 15:31 Height 5 ft 4 in 5 ft 4 in 5 ft 4 in 5 ft 4 in Weight: 237 lb BMI 40.6 BP 129/90 H Blood Pressure Location Lt brachial Position Sitting Respiration 16 Pulse 73 Pulse Source Monitor BP Intake Visit Reasons: 6 wk FU Accompanied by: Self Allergies quetiapine fumarate (From Seroquel) Allergy (Verified 01/13/25 15:33) Other exenatide (From Bydureon BCise) Adverse Reaction (Intermediate, Verified 01/13/25 15:33) Swelling Sulfa (Sulfonamide Antibiotics) Adverse Reaction (Verified 01/13/25 15:33) Diarrhea Medications ???Medication ???Instructions ???Recorded ???Confirmed ???Type blood sugar diagnostic (OneTouch #200 ea 05/31/23 01/13/25 Rx Verio test strips) pen needle, diabetic 32 gauge x #100 ea 07/12/23 01/13/25 Rx 5/32 (BD Ultra-Fine Ivet Pen Needle) arm brace (Wrist Brace) #2 ea 09/12/23 01/13/25 Rx amlodipine 5 mg tablet 5 mg PO QDAY 03/12/24 01/13/25 His tory metformin 1,000 mg tablet 1,000 mg PO BID #180 tabs 05/08/24 01/13/25 Rx hydrochlorothiazide 12.5 mg tablet 25 mg PO QAM 07/18/24 01/13/25 H istory loratadine 10 mg tablet (Claritin) 10 mg PO QDAY PRN 07/18/2401/13 History liraglutide 0.6 mg/0.1 mL (18 mg/3 mg subcut 09/02/24 01/13/25 Hist ory mL) subcutaneous pen injector ondansetron 4 mg disintegrating 4 mg PO Q8H PRN PRN Nausea #10 tab s 09/10/24 01/13/25 Rx tablet ipratropium bromide 21 mcg (0.03 2 spray intranasal BID-TID PRN 01/13/25 Rx %) nasal spray postnasal drainage #30 mL pantoprazole 40 mg tablet,delayed 40 mg PO DAILY #30 tabs 11/06/24 01/13/25 Rx release clonazepam 0.5 mg tablet (Klonopin) 0.5 mg PO DAILY PRN anxiety #15 12/26/24 01/13/25 Rx tabs atomoxetine 80 mg capsule 80 mg PO QDAY #30 caps 01/13/25 Rx buspirone 15 mg tablet 15 mg PO TID #90 tabs 01/13/2501/27 Rx PFSH Medical History ADHD Concentration deficit induced hypertension, ESTHER (generalized anxiety disorder) History of depression Earache, left Wears glasses Depression Anxiety Alcohol use Diabetes Fatty liver Back pain Migraine headache Dietary restriction History of ulceration Gastric reflux Non-smoker Shortness of breath on exertion Hypertension Infestation by mites Contact dermatitis Carpal tunnel syndrome Acute otitis media, right Tonsillolith Allergic dermatitis GERD (gastroesophageal reflux disease) Diabetes type 2, controlled High blood pressure BPPV (benign paroxysmal positional vertigo) Pre-eclampsia, Surgical History History of hysteroscopy History of esophagogastroduodenoscopy (EGD) Family History Mother Arthritis Anxiety Fibromyalgia Depression Hypertension Grandfather Colon cancer Father Heart disease Hypertension Myocardial infarction Cancer lung/kidney Social History (Updated 09/10/24 @ 09:[address] 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 Patient has been very stressed between having to move out and going through process of buying a house. They are currently moving in as of now. Does feel like everything is working against her elaborating in trying to move she has been feeling sick or has so many things to get done in a short amount of time. Her children have been having some more behavioral concerns associated with the move. This has affected her sleep. Her youngest daughter, is still not sleeping through the night. Has a sleep study ordered for near future. Feels like she is doing alright with the use of atomoxetine. Recently started smoking m (more content not included)... Normal [facility] .Auto Diffon 01-07-2025 Basophil, Absolute 0.1 10 3/mcL Normal 0.0-0.3 [facility] Comment on above: Performed By: #### N GPCR1, CTPCR #### [address] [address] Basophils/100 WBC (Bld) 0.5 % Normal 0.0-2.5 [facility] Comment on above: Performed By: #### N GPCR1, CTPCR #### [address] [address] Eosinophil, Absolute 0.2 10 3/mcL Normal 0.0-0.7 [facility] Comment on above: Performed By: #### N GPCR1, CTPCR #### [facility] [address] [place] [id number] Eosinophils/100 WBC (Bld) 2.0 % Normal 0.0-6.0 [facility] Comment on above: Performed By: #### N GPCR1, CTPCR #### [facility] [address] [place] [address] Lymphocyte, Absolute 1.9 10 3/mcL Normal 0.9-4.3 [facility] Comment on above: Performed By: #### N GPCR1, CTPCR #### [facility] [address] [place] [address] Lymphocytes/100 WBC (Bld) 18.6 % Low 20.0-40.0 [facility] Comment on above: Performed By: #### N GPCR1, CTPCR #### [facility] [address] [place] [address] Monocyte, Absolute 0.6 10 3/mcL Normal 0.1-1.4 [facility] Comment on above: Performed By: #### N GPCR1, CTPCR #### [address] [address] Monocytes/100 WBC (Bld) 5.6 % Normal 2.0-13.0 [facility] Comment on above: Performed By: #### N GPCR1, CTPCR #### [address] [address] Neutrophils/100 WBC (Bld) 73.3 % Normal 50.0-75.0 [facility] Comment on above: Performed By: #### N GPCR1, CTPCR #### [address] [address] .GFRon 01-07-2025 Estimated Glomerular Filtration Rate 96 ml/min/1.73sqm Normal [facility] Comment on above: Result Comment: Stages of Chronic Kidney Disease (CKD) Stage Description eGFR(ml/min/1.73 sq.m.) CKD 1 Normal kidney function or >=90 normal kindney function with possible kidney damage (ex. Proteinuria) CKD 2 Kidney damage with mild loss 60-89 of kidney function CKD 3a Mild to moderate loss of kidney 45-59 function CKD 3b Moderate to severe loss of 30-44 of kindey function CKD 4 Severe loss of kidney function 15-29 CKD 5 Kidney failure <15 Note: (go live 2024) the eGFR calculation was updated to the 2020 CKD-EPI creatinine equation without a race factor to calculate the eGFR results. Performed By: #### N GPCR1, CTPCR #### [address] [address] .NEUABSon 01-07-2025 Neutrophil, Absolute 7.5 10 3/mcL Normal 2.3-8.1 [facility] Comment on above: Performed By: #### N GPCR1, CTPCR #### [address] [address] CBCon 01-07-2025 Erythrocyte distribution width (RBC) [Ratio] 14.3 % Normal 11.5-15.5 [facility] Comment on above: Performed By: #### N GPCR1, CTPCR #### [place] [address] Hematocrit (Bld) [Volume fraction] 41.6 % Normal 34.0-46.0 [facility] Comment on above: Performed By: #### N GPCR1, CTPCR #### [place] [address] Hgb 13.9 G/dL Normal 12.0-16.0 [facility] Comment on above: Performed By: #### N GPCR1, CTPCR #### [place] [address] MCH (RBC) [Entitic mass] 26.7 pg Low 27.0-33.0 [facility] Comment on above: Performed By: #### N GPCR1, CTPCR #### [place] [address] MCHC 33.5 G/dL Normal 32.0-36.0 [facility] Comment on above: Performed By: #### N GPCR1, CTPCR #### [place] [address] MCV (RBC) [Entitic vol] 79.5 fL Low 80.0-99.0 [facility] Comment on above: Performed By: #### N GPCR1, CTPCR #### [place] [id number] Platelet 310 10 3/mcL Normal 150-450 [facility] Comment on above: Performed By: #### N GPCR1, CTPCR #### [place] [address] Platelet mean volume (Bld) [Entitic vol] 8.1 fL Normal 6.6-10.5 [facility] Comment on above: Performed By: #### N GPCR1, CTPCR #### [address] [address] RBC 5.23 10 6/mcL Normal 4.10-5.30 [facility] Comment on above: Performed By: #### N GPCR1, CTPCR #### [address] [address] WBC 10.3 10 3/mcL Normal 4.5-10.8 [facility] Comment on above: Performed By: #### N GPCR1, CTPCR #### [place] [address] CMPon 01-07-2025 Albumin Level 3.5 G/dL Normal 3.5-5.0 [facility] Comment on above: Performed By: #### N GPCR1, CTPCR #### [place] [address] Albumin/Globulin [Mass ratio] 0.9 {ratio} Low 1.1-2.5 [facility] Comment on above: Performed By: #### N GPCR1, CTPCR #### [address] [address] ALP [Catalytic activity/Vol] 107 U/L Normal 40-135 [facility] Comment on above: Performed By: #### N GPCR1, CTPCR #### [place] [address] ALT [Catalytic activity/Vol] 65 U/L High 14-59 [facility] Comment on above: Performed By: #### N GPCR1, CTPCR #### [address] [address] AST [Catalytic activity/Vol] 43 U/L High 10-40 [facility] Comment on above: Performed By: #### N GPCR1, CTPCR #### [place] [address] Bili Total 0.7 mg/dL Normal 0.2-1.0 [facility] Comment on above: Result Comment: Use of this assay is not recommended for patients undergoing treatment with eltrombopag due to the potential for falsely elevated results. Performed By: #### N GPCR1, CTPCR #### [place] [address] BUN/Creatinine Ratio 15 ratio Normal 7-27 [facility] Comment on above: Performed By: #### N GPCR1, CTPCR #### [place] [address] Calcium [Mass/Vol] 9.1 mg/dL Normal 8.4-10.2 [facility] Comment on above: Performed By: #### N GPCR1, CTPCR #### [place] [address] Chloride [Moles/Vol] 97 mmol/L Low 98-107 [facility] Comment on above: Performed By: #### N GPCR1, CTPCR #### [place] [address] CO2 [Moles/Vol] 33 mmol/L High 22-29 [facility] Comment on above: Performed By: #### N GPCR1, CTPCR #### [place] [address] Creatinine [Mass/Vol] 0.81 mg/dL Normal 0.51-0.95 [facility] Comment on above: Performed By: #### N GPCR1, CTPCR #### [place] [address] Electrolyte Balance 6.0 mEq/L Normal 4.0-15.0 [facility] Comment on above: Performed By: #### N GPCR1, CTPCR #### [place] [id number] Globulin 4.1 G/dL Normal 2.7-4.4 [facility] Comment on above: Performed By: #### N GPCR1, CTPCR #### [place] [address] Glucose [Mass/Vol] 132 mg/dL High 70-105 [facility] Comment on above: Performed By: #### N GPCR1, CTPCR #### [facility] [address] [place] [address] Potassium [Moles/Vol] 3.8 mmol/L Normal 3.5-5.1 [facility] Comment on above: Performed By: #### N GPCR1, CTPCR #### [facility] [address] [place] [address] Sodium [Moles/Vol] 136 mmol/L Normal 136-145 [facility] Comment on above: Performed By: #### N GPCR1, CTPCR #### [address] [address] Total Protein 7.6 G/dL Normal 6.4-8.2 [facility] Comment on above: Performed By: #### N GPCR1, CTPCR #### [address] [address] Urea nitrogen [Mass/Vol] 12 mg/dL Normal 7-18 [facility] Comment on above: Performed By: #### N GPCR1, CTPCR #### [address] [address] LABORATORYOrdered By: SYSTEM SYSTEM on 01-07-2025 25-hydroxyvitamin D3 [Mass/Vol] 36.1 ng/mL Invalid Interpretation Code AO ADM SS Comment on above: Interpretive Data: I nterpretive Values Based on Total 25(OH) Vitamin D: Deficient <20 ng/mL Insufficient 20 - <30 ng/mL Sufficient 30-100 ng/mL Albumin BCP dye [Mass/Vol] 3.5 G/dL Normal 3.5 - 5.0 G/dL AO ADM SS Albumin/Globulin [Mass ratio] 0.9 {ratio} Low 1.1 - 2.5 ratio AO ADM SS ALP [Catalytic activity/Vol] 107 U/L Normal 40 - 135 U/L AO ADM SS ALT With P-5'-P [Catalytic activity/Vol] 65 U/L High 14 - 59 U/L AO ADM SS AST With P-5'-P [Catalytic activity/Vol] 43 U/L High 10 - 40 U/L AO ADM SS Basophils (Bld) [#/Vol] 0.1 103/mcL Normal 0.0 - 0.3 10^3/mcL AO Workflow SS Basophils/100 WBC (Bld) 0.5 % Normal 0.0 - 2.5 % AO Workflow SS Bilirubin [Mass/Vol] 0.7 mg/dL Normal 0.2 - 1 .0 mg/dL AO ADM SS Comment on above: Interpretive Data: U se of this assay is not recommended for patients undergoing treatment with eltrombopag due to the potential for falsely elevated results. Calcium [Mass/Vol] 9.1 mg/dL Normal 8.4 - 10. 2 mg/dL AO ADM SS Chloride [Moles/Vol] 97 mmol/L Low 98 - 10 7 mmol/L AO ADM SS CO2 [Moles/Vol] 33 mmol/L High 22 - 29 mmol/L AO ADM SS Creatinine [Mass/Vol] 0.81 mg/dL Normal 0.51 - 0.95 mg/dL AO ADM SS Electrolyte Balance 6.0 mEq/L Normal 4.0 - 15 .0 mEq/L AO ADM SS Eosinophil, Absolute 0.2 103/mcL Normal 0.0 - 0 .7 10^3/mcL AO Workflow SS Eosinophils/100 WBC (Bld) 2.0 % Normal 0.0 - 6.0 % AO Workflow SS Erythrocyte distribution width (RBC) [Ratio] 14.3 % Normal 11.5 - 15.5 % AO Workflow SS Globulin 4.1 G/dL Normal 2.7 - 4.4 G/dL AO ADM SS GLOMERULAR FILTRATION RATE/1.73 SQ M.PREDICTED:ARVRAT:P T:SER/PLAS/BLD:QN:CR EATININE-BASED FORMULA (CKD-EPI 2020) 96 ml/min/1.73sqm Invalid Interpretation Code AO Chemistry S Comment on above: Interpretive Data: Stages of Chronic Kidney Disease (CKD) Stage Description eGFR(ml/min/1.73 sq.m.) CKD 1 Normal kidney function or >=90 normal kindney function with possible kidney damage (ex. Proteinuria) CKD 2 Kidney damage with mild loss 60-89 of kidney function CKD 3a Mild to moderate loss of kidney 45-59 function CKD 3b Moderate to severe loss of 30-44 of kindey function CKD 4 Severe loss of kidney function 15-29 CKD 5 Kidney failure <15 Note: (go live 2024) the eGFR calculation was updated to the 2020 CKD-EPI creatinine equation without a race factor to calculate the eGFR results. Glucose [Mass/Vol] 132 mg/dL High 70 - 105 mg/dL AO ADM SS Hematocrit (Bld) [Volume fraction] 41.6 % Normal 34.0 - 46.0 % AO Workflow SS Hemoglobin (Bld) [Mass/Vol] 13.9 G/dL Normal 12.0 - 16.0 G/dL AO Workflow SS Lymphocytes (Bld) [#/Vol] 1.9 103/mcL Normal 0.9 - 4.3 10^3/mcL AO Workflow SS Lymphocytes/100 WBC (Bld) 18.6 % Low 20.0 - 40.0 % AO Workflow SS MCH (RBC) [Entitic mass] 26.7 pg Low 27.0 - 33.0 pg AO Workflow SS MCHC 33.5 G/dL Normal 32.0 - 36.0 G/dL AO Workflow SS MCV (RBC) [Entitic vol] 79.5 fL Low 80.0 - 99.0 fL AO Workflow SS Monocytes (Bld) [#/Vol] 0.6 103/mcL Normal 0.1 - 1.4 10^3/mcL AO Workflow SS Monocytes/100 WBC (Bld) 5.6 % Normal 2.0 - 13.0 % AO Workflow SS Neutrophils (Bld) [#/Vol] 7.5 103/mcL Normal 2.3 - 8.1 10^3/mcL AO Workflow SS Neutrophils/100 WBC (Bld) 73.3 % Normal 50.0 - 75.0 % AO Workflow SS Platelet mean volume (Bld) [Entitic vol] 8.1 fL Normal 6.6 - 10.5 fL AO Workflow SS Platelets (Bld) [#/Vol] 310 103/mcL Normal 150 - 450 10^3/mcL AO Workflow SS Potassium [Moles/Vol] 3.8 mmol/L Normal 3.5 - 5.1 mmol/L AO ADM SS Protein [Mass/Vol] 7.6 G/dL Normal 6.4 - 8.2 G/dL AO ADM SS RBC (Bld) [#/Vol] 5.23 106/mcL Normal 4.10 - 5.30 10^6/mcL AO Workflow SS Sodium [Moles/Vol] 136 mmol/L Normal 136 - 145 mmol/L AO ADM SS TSH Qn 1.30 m[IU]/L Normal 0.36 - 3.74 mcIU/mL AO ADM SS Urea nitrogen [Mass/Vol] 12 mg/dL Normal 7 - 18 mg/dL AO ADM SS Urea nitrogen/Creatinine [Mass ratio] 15 ratio Normal 7 - 27 ratio AO ADM SS WBC (Bld) [#/Vol] 10.3 103/mcL Normal 4.5 - 10.8 10^3/mcL AO Workflow SS LABORATORYOrdered By: Vikki Carballo on 01-07-2025 Cholesterol [Mass/Vol] 202 mg/dL High 0 - 200 mg/dL AO ADM SS Comment on above: Interpretive Data: C holesterol Reference Interval: Less than 200 Desirable 200-239 Borderline high risk 240 and above High risk Cholesterol in HDL [Mass/Vol] 43 mg/dL Normal 40 - 60 mg/dL AO ADM SS Cholesterol in LDL [Mass/Vol] 138 mg/dL High 0 - 130 mg/dL AO ADM SS Triglyceride [Mass/Vol] 104 mg/dL Normal 0 - 150 mg/dL AO ADM SS Comment on above: Interpretive Data: T riglyceride Reference Interval: Less than 150 Normal 150-199 Borderline high risk 200-499 High risk 500 or higher Very high risk LIPIDon 01-07-2025 Cholesterol [Mass/Vol] 202 mg/dL High 0-200 [facility] Comment on above: Result Comment: Chol esterol Reference Interval: Less than 200 Desirable 200-239 Borderline high risk 240 and above High risk Performed By: #### N GPCR1, CTPCR #### [address] [address] Cholesterol in HDL [Mass/Vol] 43 mg/dL Normal 40-60 [facility] Comment on above: Performed By: #### N GPCR1, CTPCR #### [address] [address] Cholesterol in LDL [Mass/Vol] 138 mg/dL High 0-130 [facility] Comment on above: Performed By: #### N GPCR1, CTPCR #### [address] [address] Triglyceride [Mass/Vol] 104 mg/dL Normal 0-150 [facility] Comment on above: Result Comment: Trig lyceride Reference Interval: Less than 150 Normal 150-199 Borderline high risk 200-499 High risk 500 or higher Very high risk Performed By: #### N GPCR1, CTPCR #### [place] [address] TSHon 01-07-2025 TSH Qn 1.30 m[IU]/L Normal 0.36-3.74 [facility] Comment on above: Performed By: #### N GPCR1, CTPCR #### [place] [address] VIDHon 01-07-2025 Vit. D 25-Hydroxy 36.1 ng/mL Normal [facility] Comment on above: Result Comment: Inte rpretive Values Based on Total 25(OH) Vitamin D: Deficient <20 ng/mL Insufficient 20 - <30 ng/mL Sufficient 30-100 ng/mL Performed By: #### N GPCR1, CTPCR #### [place] [address] MR/BMS.BPon 01-05-2025 MR/BMS.BP [address], [address] [place] [address] OFFICE VISIT Date of Service: 01/05/25 MR#: [id number] Acct: [id number] Name: DORY HENDERSON Rep #: [id number] : 1985 [facility] Age/Sex: 39/F Location: [facility].BP Status: Signed Intake Vital Signs 07/18/24 10:38 12/22/24 12:47 01/05/25 11:27 Height 5 ft 4 in 5 ft 4 in 5 ft 4 in BP Intake Visit Reasons: f/u Allergies quetiapine fumarate (From Seroquel) Allergy (Verified 11/11/24 10:12) Other exenatide (From Bydureon BCise) Adverse Reaction (Intermediate, Verified 11/11/24 10:12) Swelling Sulfa (Sulfonamide Antibiotics) Adverse Reaction (Verified 11/11/24 10:12) Diarrhea PFSH Medical History ADHD Concentration deficit induced hypertension, ESTHER (generalized anxiety disorder) History of depression Earache, left Wears glasses Depression Anxiety Alcohol use Diabetes Fatty liver Back pain Migraine headache Dietary restriction History of ulceration Gastric reflux Non-smoker Shortness of breath on exertion Hypertension Infestation by mites Contact dermatitis Carpal tunnel syndrome Acute otitis media, right Tonsillolith Allergic dermatitis GERD (gastroesophageal reflux disease) Diabetes type 2, controlled High blood pressure BPPV (benign paroxysmal positional vertigo) Pre-eclampsia, Surgical History History of hysteroscopy History of esophagogastroduodenoscopy (EGD) Family History Mother Arthritis Anxiety Fibromyalgia Depression Hypertension Grandfather Colon cancer Father Heart disease Hypertension Myocardial infarction Cancer lung/kidney Social History (Updated 09/10/24 @ 09:[address] 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 She reported anxiety related to moving, parenting, and coping with a friend's behaviors. Dory discussed struggling with avoidance behavior with difficult tasks. She reported recent use of cannabis to manage anxiety. Dory presented with reduced anhedonia and improved sleep when compared to previous session. She reported some positive interactions with her children and goal of wanting them to eat dinner as a family. The main themes of the session were exploration of family life, coping with recent changes and stressors in the family, and managing anxious symptoms. Encouraged verbalization of emotions while providing support. Normalized emotions. Explored with Dory what she can and cannot control. Reinforced not allowing friend's emotions to determine her own emotions and maintaining healthy emotional boundaries. Using a DBT approach working on dialectical thinking related to parenting and parenting stressors. Also used a CBT approach to address thought patterns related to anxiety and avoidance. Encouraged approaching stressors vs. avoiding them and helped Dory prioritize tasks related to moving. Explored how avoidance of task related to moving may impact self and others. No SI. Future- oriented. Exam Mental Status Exam - Psych Appearance casually dressed and adequately groomed Attitude cooperative, calm and engaged Activity/Motor Behavior appropriate eye contact and fidgeting Speech regular rate, regular volume and regular prosody Mood anxious (mild) Affect congruent Thought Process linear, logical and coherent Thought Content no delusions and no hallucinations Suicidal Ideation none Homicidal Ideation none Attention intact Concentration impaired (Per pt. report.) Sensorium/Orientation awake, alert and oriented x3 Memory/Cognition other (Reports occasional times of memory problems.) Insight good Judgement good Assessment Plan Assessment Plan (1) Depression: Qualifiers: Depression Type: major depressive disorder Major depression recurrence: recurrent Active/Remission status: in partial remission Qualified Code(s): F33.41 - Major depressive disorder, recurrent, in partial remission Plan: therapy using CBT, DBT, and (more content not included)... Normal [facility] MR/BMS.[facility] 12-22-2024 MR/BMS.[address], [address] [place] [address] OFFICE VISIT Date of Service: 12/22/24 MR#: [id number] Acct: [id number] Name: DORY HENDERSON Rep #: [id number] : 1985 Provider[facility] Age/Sex: 39/F Location: [facility] [place].BP Status: Signed Intake Vital Signs 07/18/24 10:38 11/20/24 11:18 12/22/24 12:47 Height 5 ft 4 in 5 ft 4 in 5 ft 4 in BP Intake Visit Reasons: f/u Allergies quetiapine fumarate (From Seroquel) Allergy (Verified 11/11/24 10:12) Other exenatide (From Bydureon BCise) Adverse Reaction (Intermediate, Verified 11/11/24 10:12) Swelling Sulfa (Sulfonamide Antibiotics) Adverse Reaction (Verified 11/11/24 10:12) Diarrhea [facility] Medical History ADHD Concentration deficit induced hypertension, ESTHER (generalized anxiety disorder) History of depression Earache, left Wears glasses Depression Anxiety Alcohol use Diabetes Fatty liver Back pain Migraine headache Dietary restriction History of ulceration Gastric reflux Non-smoker Shortness of breath on exertion Hypertension Infestation by mites Contact dermatitis Carpal tunnel syndrome Acute otitis media, right Tonsillolith Allergic dermatitis GERD (gastroesophageal reflux disease) Diabetes type 2, controlled High blood pressure BPPV (benign paroxysmal positional vertigo) Pre-eclampsia, Surgical History History of hysteroscopy History of esophagogastroduodenoscopy (EGD) Family History Mother Arthritis Anxiety Fibromyalgia Depression Hypertension Grandfather Colon cancer Father Heart disease Hypertension Myocardial infarction Cancer lung/kidney Social History (Updated 09/10/24 @ 09:[address] 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 She identified stressors related to upcoming move including feeling overwhelmed with packing and guilt about children having to move. Dory reported poor sleep attributing it to both sleep disturbance and awakening during the night due to her children. She reported some depression with symptoms of anhedonia and high level of anxiety. The main themes of the session were parenting anxieties and concerns, adjustment to changes in the family living arrangement, and dealing with anxious and depressive states. Encouraged verbalization of emotions while providing support. Normalized emotions. Explored coping for parenting stressors, which largely included taking breaks, pleasant activities, and distraction. Assisted Dory with breaking down large moving tasks into smaller tasks that felt more manageable as well as problem solving options for tasks. Reinforced actions she had taken. Discussed Dory's childhood history of frequent moves, impact of this, and how this was triggering worries about impact of move on own children. Addressed thought patterns using CBT interventions. Provided psychoeducation on anhedonia as a depressive symptoms and explored pleasant activities that could be used for behavioral activation. No SI. Future-oriented. Exam Mental Status Exam - Psych Appearance casually dressed and adequately groomed Attitude cooperative, calm and engaged Activity/Motor Behavior appropriate eye contact and fidgeting Speech regular rate, regular volume and regular prosody Mood depressed and anxious (mild) Affect congruent Thought Process linear, logical and coherent Thought Content no delusions and no hallucinations Suicidal Ideation none Homicidal Ideation none Attention intact Concentration impaired (Per pt. report.) Sensorium/Orientation awake, alert and oriented x3 Memory/Cognition other (Reports occasional times of memory problems.) Insight good Judgement good Assessment Plan Assessment Plan (1) Depression: Qualifiers: Depression Type: major depressive disorder Major depression recurrence: recurrent Active/Remission status: in partial remission Qualified Code(s): F33.41 - Major depressive disorder, recurrent, in partial cliff (more content not included)... Normal [facility] MR/BMS.BPon 12-08-2024 MR/BMS.BP [facility] Psychiatry [address] [place] [address], [address] [place] [address] OFFICE VISIT Date of Service: 12/08/24 MR#: [id number] Acct: [id number] Name: DORY HEDNERSON Rep #: [id number] : 1985 Provider: [facility] Jessika vinson Age/Sex: 39/F Location: [facility] [place].BP Status: Signed Intake Vital Signs 07/18/24 10:38 11/20/24 11:18 12/08/24 12:19 Height 5 ft 4 in 5 ft 4 in 5 ft 4 in BP Intake Visit Reasons: f/u Allergies quetiapine fumarate (From Seroquel) Allergy (Verified 11/11/24 10:12) Other exenatide (From Bydureon BCise) Adverse Reaction (Intermediate, Verified 11/11/24 10:12) Swelling Sulfa (Sulfonamide Antibiotics) Adverse Reaction (Verified 11/11/24 10:12) Diarrhea [facility] Medical History ADHD Concentration deficit induced hypertension, ESTHER (generalized anxiety disorder) History of depression Earache, left Wears glasses Depression Anxiety Alcohol use Diabetes Fatty liver Back pain Migraine headache Dietary restriction History of ulceration Gastric reflux Non-smoker Shortness of breath on exertion Hypertension Infestation by mites Contact dermatitis Carpal tunnel syndrome Acute otitis media, right Tonsillolith Allergic dermatitis GERD (gastroesophageal reflux disease) Diabetes type 2, controlled High blood pressure BPPV (benign paroxysmal positional vertigo) Pre-eclampsia, Surgical History History of hysteroscopy History of esophagogastroduodenoscopy (EGD) Family History Mother Arthritis Anxiety Fibromyalgia Depression Hypertension Grandfather Colon cancer Father Heart disease Hypertension Myocardial infarction Cancer lung/kidney Social History (Updated 09/10/24 @ 09:[address] 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 She reported reduction in overall anxiety stating she and significant other have resolved housing issue and have purchased a home. Dory identified continuing to work on packing, which has been stressful at times. She identified stressors related to parenting and son's difficulty with emotional regulation. Dory expressed concerns of Autism and/or ADHD symptoms. Encouraged verbalization of emotions while providing support. Normalized emotions. Reinforced Dory utilizing services for son including occupational and speech therapy. Explored options for MH services and discussed previous attempts, which have been frustrating. Discussed Dory's parenting and impact on her as well as resulting values and value-based action. Provided psychoeducation on ways to address intense emotions with son. Discussed options for bibliotherapy on big emotions/emotional regulation. Worked on coping and self-care. No SI. Future-oriented. Exam Mental Status Exam - Psych Appearance casually dressed and adequately groomed Attitude cooperative, calm and engaged Activity/Motor Behavior appropriate eye contact and fidgeting Speech regular rate, regular volume and regular prosody Mood anxious (mild) Affect congruent Thought Process linear, logical and coherent Thought Content no delusions and no hallucinations Suicidal Ideation none Homicidal Ideation none Attention intact Concentration impaired (Per pt. report.) Sensorium/Orientation awake, alert and oriented x3 Memory/Cognition other (Reports occasional times of memory problems.) Insight good Judgement good Assessment Plan Assessment Plan (1) Depression: Qualifiers: Depression Type: major depressive disorder Major depression recurrence: recurrent Active/Remission status: in partial remission Qualified Code(s): F33.41 - Major depressive disorder, recurrent, in partial remission Plan: BH therapy using CBT, DBT, and ACT interventions to address thought patterns contributing to depressive symptoms and teach coping skills. Continued psychiatric services to monitor depressive symptoms and medication effectiveness. Pt. to call 911, call suicide prevention hotline, or go to ER if experiencing suicidal (more content not included)... Normal [facility] MR/BMS.BPon 11-20-2024 MR/BMS.BP [facility] Psychiatry [address], [address] [place] [address] OFFICE VISIT Date of Service: 11/18/24 MR#: [id number] Acct: [id number] Name: DORY HENDERSON Rep #: [id number] : 1985 Provider: [facility] Jessika vinson Age/Sex: 39/F Location: [facility] [place].BP Status: Signed Intake Vital Signs 07/18/24 10:38 11/11/24 16:30 11/20/24 11:18 Height 5 ft 4 in 5 ft 4 in 5 ft 4 in BP Intake Visit Reasons: f/u Allergies quetiapine fumarate (From Seroquel) Allergy (Verified 11/11/24 10:12) Other exenatide (From Bydureon BCise) Adverse Reaction (Intermediate, Verified 11/11/24 10:12) Swelling Sulfa (Sulfonamide Antibiotics) Adverse Reaction (Verified 11/11/24 10:12) Diarrhea [facility] Medical History ADHD Concentration deficit induced hypertension, ESTHER (generalized anxiety disorder) History of depression Earache, left Wears glasses Depression Anxiety Alcohol use Diabetes Fatty liver Back pain Migraine headache Dietary restriction History of ulceration Gastric reflux Non-smoker Shortness of breath on exertion Hypertension Infestation by mites Contact dermatitis Carpal tunnel syndrome Acute otitis media, right Tonsillolith Allergic dermatitis GERD (gastroesophageal reflux disease) Diabetes type 2, controlled High blood pressure BPPV (benign paroxysmal positional vertigo) Pre-eclampsia, Surgical History History of hysteroscopy History of esophagogastroduodenoscopy (EGD) Family History Mother Arthritis Anxiety Fibromyalgia Depression Hypertension Grandfather Colon cancer Father Heart disease Hypertension Myocardial infarction Cancer lung/kidney Social History (Updated 09/10/24 @ 09:[address] 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 She reported rejection on apartment application and bank loan, which has triggered anxiety. Dory identified that she is making progress packing her apartment. She discussed children's medical needs and extracurricular activities. Encouraged verbalization of emotions while providing support. Using Solution-Focused strategies explored what has allowed Dory to be successful with packing. Worked on breaking tasks down into smaller pieces, remaining focused on one area, and picking tasks that match energy and motivation level. Reinforced action she is taking vs. avoidance. Worked on value-based action related to children. Problem solved options for managing stressors related to children's extracurricular activities. No SI. Future-oriented. Exam Mental Status Exam - Psych Appearance casually dressed and adequately groomed Attitude cooperative, calm and engaged Activity/Motor Behavior appropriate eye contact and fidgeting Speech regular rate, regular volume and regular prosody Mood anxious (mild) Affect full range Thought Process linear, logical and coherent Thought Content no delusions and no hallucinations Suicidal Ideation none Homicidal Ideation none Attention intact Concentration impaired (Per pt. report.) Sensorium/Orientation awake, alert and oriented x3 Memory/Cognition other (Reports occasional times of memory problems.) Insight good Judgement good Assessment Plan Assessment Plan (1) Depression: Qualifiers: Depression Type: major depressive disorder Major depression recurrence: recurrent Active/Remission status: in partial remission Qualified Code(s): F33.41 - Major depressive disorder, recurrent, in partial remission Plan: therapy using CBT, DBT, and ACT interventions to address thought patterns contributing to depressive symptoms and teach coping skills. Continued psychiatric services to monitor depressive symptoms and medication effectiveness. Pt. to call 911, call suicide prevention hotline, or go to ER if experiencing suicidal ideation with plan and intent and/or feel unable to ensure own safety. (2) ESTHER (generalized anxiety disorder): Plan: therapy using CBT, DBT, and ACT interventions to address though (more content not included)... Normal [facility] MR/BMS.BPon 11-11-2024 MR/BMS.BP [address], [address] [place] [address] OFFICE VISIT Date of Service: 11/11/24 MR#: [id number] Acct: [id number] Name: DORY HENDERSON Rep #: [id number] : 1985 Provider: [facility] Jessika vinson Age/Sex: 39/F Location: [facility].BP Status: Signed Intake Vital Signs 09/10/24 08:59 11/11/24 10:04 11/11/24 16:30 Height 5 ft 4 in 5 ft 4 in 5 ft 4 in BP Intake Visit Reasons: Follow up Allergies quetiapine fumarate (From Seroquel) Allergy (Verified 11/11/24 10:12) Other exenatide (From Bydureon BCise) Adverse Reaction (Intermediate, Verified 11/11/24 10:12) Swelling Sulfa (Sulfonamide Antibiotics) Adverse Reaction (Verified 11/11/24 10:12) Diarrhea [facility] Medical History ADHD Concentration deficit induced hypertension, ESTHER (generalized anxiety disorder) History of depression Earache, left Wears glasses Depression Anxiety Alcohol use Diabetes Fatty liver Back pain Migraine headache Dietary restriction History of ulceration Gastric reflux Non-smoker Shortness of breath on exertion Hypertension Infestation by mites Contact dermatitis Carpal tunnel syndrome Acute otitis media, right Tonsillolith Allergic dermatitis GERD (gastroesophageal reflux disease) Diabetes type 2, controlled High blood pressure BPPV (benign paroxysmal positional vertigo) Pre-eclampsia, Surgical History History of hysteroscopy History of esophagogastroduodenoscopy (EGD) Family History Mother Arthritis Anxiety Fibromyalgia Depression Hypertension Grandfather Colon cancer Father Heart disease Hypertension Myocardial infarction Cancer lung/kidney Social History (Updated 09/10/24 @ 09:[address] 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 She reported increased anxiety attributing this to her landlord deciding not to renew their lease, trying to secure housing, and feeling overwhelmed about packing. Dory reported a 11/11/2024 psychiatric appointment where her dose of atomoxetine was increased. She stated that her previous dose was not alleviating ADHD symptoms. The main themes of the session were adjustment to changes in the family living arrangement, dealing with anxiety states, and coping and working through low motivation and difficulty completing household tasks. Encouraged verbalization of emotions while providing support. Normalized emotions. Explored and worked on coping assisting Dory with identifying what has been helpful for her when her anxiety increases. Provided psychoeducation on action creating motivation, breaking tasks down into smaller components, focusing on what she is able to do, and creating momentum. Reinforced problem solving she and her have done towards addressing current changes in living situation. No reports of SI. Future-oriented. Exam Mental Status Exam - Psych Appearance casually dressed and adequately groomed Attitude cooperative, calm and engaged Activity/Motor Behavior appropriate eye contact and fidgeting Speech regular rate, regular volume and regular prosody Mood anxious (mild) Affect full range Thought Process linear, logical and coherent Thought Content no delusions and no hallucinations Suicidal Ideation none Homicidal Ideation none Attention intact Concentration impaired (Per pt. report.) Sensorium/Orientation awake, alert and oriented x3 Memory/Cognition other (Reports occasional times of memory problems.) Insight good Judgement good Assessment Plan Assessment Plan (1) Depression: Qualifiers: Active/Remission status: in partial remission Depression Type: major depressive disorder Major depression recurrence: recurrent Qualified Code(s): F33.41 - Major depressive disorder, recurrent, in partial remission Plan: BH therapy using CBT, DBT, and ACT interventions to address thought patterns contributing to depressive symptoms and teach coping skills. Continued psychiatric services to monitor depressive symptoms and medication effectiveness. Pt. to (more content not included)... Normal [facility] MR/BMS.BP [place] [facility] [address], [address] [place] [address] OFFICE VISIT Date of Service: 11/11/24 MR#: [id number] Acct: [id number] Name: DORY HENDERSON Rep #: [id number] : 1985 Provider: Dr. Sharad Dumont se, DO Age/Sex: 39/F Location: [facility] [place].BP Status: Signed Intake Vital Signs 09/10/24 08:59 11/11/24 10:04 Height 5 ft 4 in 5 ft 4 in Weight: 241 lb BMI 41.3 BP 138/100 H Blood Pressure Location Lt brachial Position Sitting Respiration 16 Pulse 82 Pulse Source Monitor Comment 2nd BP BP Intake Visit Reasons: Follow up Accompanied by: Self Allergies quetiapine fumarate (From Seroquel) Allergy (Verified 11/11/24 10:12) Other exenatide (From Bydureon BCise) Adverse Reaction (Intermediate, Verified 11/11/24 10:12) Swelling Sulfa (Sulfonamide Antibiotics) Adverse Reaction (Verified 11/11/24 10:12) Diarrhea Medications ???Medication ???Instructions ???Recorded ???Confirmed ???Type blood sugar diagnostic (OneTouch #200 ea 05/31/23 11/11/24 Rx Verio test strips) pen needle, diabetic 32 gauge x #100 ea 07/12/23 11/11/24 Rx 5/32 (BD Ultra-Fine Ivet Pen Needle) arm brace (Wrist Brace) #2 ea 09/12/23 11/11/24 Rx amlodipine 5 mg tablet 5 mg PO QDAY 03/12/24 11/11/24 His tory clonazepam 0.5 mg tablet (Klonopin) 0.5 mg PO DAILY PRN anxiety #15 03/18/24 11/11/24 Rx tabs metformin 1,000 mg tablet 1,000 mg PO BID #180 tabs 05/08/24 11/11/24 Rx hydrochlorothiazide 12.5 mg tablet 25 mg PO QAM 07/18/24 11/11/24 H istory loratadine 10 mg tablet (Claritin) 10 mg PO QDAY PRN 07/18/2411/11 History buspirone 15 mg tablet 15 mg PO TID #90 tabs 08/26/2411/27 Rx liraglutide 0.6 mg/0.1 mL (18 mg/3 mg subcut 09/02/24 11/11/24 Hist ory mL) subcutaneous pen injector ondansetron 4 mg disintegrating 4 mg PO Q8H PRN PRN Nausea #10 tab s 09/10/24 11/11/24 Rx tablet ipratropium bromide 21 mcg (0.03 2 spray intranasal BID-TID PRN 11/11/24 Rx %) nasal spray postnasal drainage #30 mL pantoprazole 40 mg tablet,delayed 40 mg PO DAILY #30 tabs 11/06/24 11/11/24 Rx release atomoxetine 40 mg capsule 40 mg PO QDAY #60 caps 11/12/24 Rx PFSH Medical History ADHD Concentration deficit induced hypertension, ESTHER (generalized anxiety disorder) History of depression Earache, left Wears glasses Depression Anxiety Alcohol use Diabetes Fatty liver Back pain Migraine headache Dietary restriction History of ulceration Gastric reflux Non-smoker Shortness of breath on exertion Hypertension Infestation by mites Contact dermatitis Carpal tunnel syndrome Acute otitis media, right Tonsillolith Allergic dermatitis GERD (gastroesophageal reflux disease) Diabetes type 2, controlled High blood pressure BPPV (benign paroxysmal positional vertigo) Pre-eclampsia, Surgical History History of hysteroscopy History of esophagogastroduodenoscopy (EGD) Family History Mother Arthritis Anxiety Fibromyalgia Depression Hypertension Grandfather Colon cancer Father Heart disease Hypertension Myocardial infarction Cancer lung/kidney Social History (Updated 09/10/24 @ 09:[address] 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 Patient reports that she has to be out of her apartment by the end of January as they plan to remodel it and rent for more money. Has been looking for a new apartment. They had been looking for a new apartment anyway so has not been overly anxiety inducing. Has been much more stressed overall in recent past. Has not noticed any significant improvement with the use of atomoxetine to this point. Finding it hard to get started on tasks that require sustained attention. Continues to feel like she has a brain fog type sensation. Continues to feel like she forgets things regularly. Sleep has been fair. Getting about 3 hours in a day. Youngest daughter has been sick which contributes but even w (more content not included)... Normal [facility] Urgent Care Visit Reporton 0 09-25-2024 Urgent Care Visit Report [facility] [address] , [address] [place] [address] OFFICE VISIT Date of Service: 09/25/24 MR#: [id number] Acct: [id number] Name: DORY HENDERSON Rep #: [id number] : 1985 Provider: NAHID Rogers Age/Sex: 39/F Location: [facility] Status: Signed Intake Vital Signs 09/10/24 08:59 09/25/24 12:12 Height 5 ft 4 in Weight: 257 lb BMI 44.1 BP 128/72 H 132/82 H Blood Pressure Location Lt brachial Lt brachial Position Sitting Sitting Respiration 18 17 Pulse 93 83 Pulse Source Monitor NIBP Temp 97.8 F 98.5 F Temp Source Temporal Oral Pulse Oximetry (%) 99 97 Oxygen Delivery Method room air room air Intake Visit Reasons: CONCERN FOR SINUS INFECTION Chief Complaint: DARDEN, ST, drainage, cough, face pain, BA [employer] Required: No Allergies quetiapine fumarate (From Seroquel) Allergy (Verified 09/25/24 12:13) Other exenatide (From Bydureon BCise) Adverse Reaction (Intermediate, Verified 09/25/24 12:13) Swelling Sulfa (Sulfonamide Antibiotics) Adverse Reaction (Verified 09/25/24 12:13) Diarrhea Is last menstrual period known: No Post menopausal: No Patient : No Have you fallen in the past year?: No Nurse's Note: DARDEN, ST, drainage, cough, face pain, BA x 3 days. denies fever. feels like when she blows her nose her face will pop off [facility] Medical History ADHD Concentration deficit induced hypertension, ESTHER (generalized anxiety disorder) History of depression Earache, left Wears glasses Depression Anxiety Alcohol use Diabetes Fatty liver Back pain Migraine headache Dietary restriction History of ulceration Gastric reflux Non-smoker Shortness of breath on exertion Hypertension Infestation by mites Contact dermatitis Carpal tunnel syndrome Acute otitis media, right Tonsillolith Allergic dermatitis GERD (gastroesophageal reflux disease) Diabetes type 2, controlled High blood pressure BPPV (benign paroxysmal positional vertigo) Pre-eclampsia, Surgical History History of hysteroscopy History of esophagogastroduodenoscopy (EGD) Family History Mother Arthritis Anxiety Fibromyalgia Depression Hypertension Grandfather Colon cancer Father Heart disease Hypertension Myocardial infarction Cancer lung/kidney Social History (Updated 09/10/24 @ 09:[address] 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 Patient denies fever, chills or sweats. No nausea, vomiting or diarrhea. No hemoptysis, shortness of breath or difficulty breathing. No loss of taste or smell. No other associated symptoms or alleviating/aggravating factors. ROS Const Constitutional: No other (As above) Exam Const General: cooperative and healthy appearing HENLA Head: normal to inspection Ears: hearing grossly normal bilaterally, TM's normal bilaterally and EAC's normal Nose: nasal discharge purulent Face and sinus: sinus tenderness frontal and maxillary Mouth: oral mucosae normal Throat: abnormal tonsil bilaterally erythema and hypertrophy 1+ and postnasal drainage Resp Effort Inspection: normal respiratory effort Auscultation: Bilateral: Clear to Auscultation Cardio Rate: regular rate Rhythm: regular rhythm Neuro General: patient alert Psych Appearance: grossly normal Mental Status: mental status grossly normal Coding Level of Care Code Off vis,est,level 3 Diagnoses Acute sinusitis J01.90 Assessment and Plan Assessment and Plan (1) Acute sinusitis: Status: Acute Medications: New amoxicillin-pot clavulanate 875-125 mg 1 TAB PO Q12H 10 days 20 tabs 0RF J01.90 - Acute sinusitis, unspecified ipratropium bromide administer into each nostril 2 sprays intranasal BID-TID PRN 30 mL 0RF postnasal drainage Plan Augmentin and Atrovent as prescribed today. Encouraged to get plenty of rest, drink lots of clear liquids, and use (more content not included)... Normal [facility] Inital Evaluation (1) - PTon 09-15-2024 Inital Evaluation (1) - PT [facility] Physical Therapy [facility] [address] [place] [address] / REHABILITATION SERVICES INITIAL EVALUATION MR#: [id number] Acct: [id number] Name: DORY HENDERSON Rep #: [id number] : 1985 39 From: Jordyn Meza DPT Referring Dr.: Dr. Brooks Acosta MD Status: R EG RCR Insurance: [facility] [employer] Patient's Visit Information Visit Information Visit Information: DORY HENDERSON is a 39 year old F referred to Physical Therapy by Dr. Brooks Acosta MD with a diagnosis of Pain in Bilateral Hips. Date of Evaluation: 09/15/24 Physical Therapist: Jordyn Meza DPT Visit Plan Frequency: 2x /Week Duration: 4 Weeks Plan: Focus on core strength/stabilization HEP Given IE: TA Contraction, Bridge, Clams, Prone Hip Extn Subjective Subjective: Patient reports bilateral hip and low back pain- its been going on for a long time. Agg: getting out of bed, standing or walking for a long period of time, squatting down or hard to sustain or getting back up. Worst: 6/10 The pain is located in both hips and along the the belt line. When she was this time she felt like the hip was coming out of the socket. Eases: rest, staying off of her legs/hips or laying flat Best: 0/10. Describes the pain as sharp and shooting and then dulls out. As the day wears on its more of a dull pain. She has three toddlers at home- so she is active with them- no specific exercise program. She has 4 kids (10//9 months). She thought it was getting better after her last but feels like its getting worse now. She is now being woken at night and shifting in bed is worse. When she first gets up the pain radiates down to her toes- it takes about 30 min and the pain goes away. No N/T. No loss or change in bowel or bladder. Work: does not work outside of her home. Fully I with all of her dressing, driving and bathing- she does need help getting out of the tub due to being so low to the ground. She has not had images of her lumbar spine or hips. No medication or injections. PMHx/Meds: no change since updated in chart. Objective Objective: Posture: forward head, rounded shoulders- can correct with verbal cues Gait: no deviation noted HR/TR: able without deficit SLS: 15 sec without LOB- mild increase in sway- mild hip drop bilateral ROM: Lumbar: WNL-Pain with side bending to the left and rotation bilateral, LE: WNL Strength: Core: poor, Hip: Right: Flexion: 4-/5, Extn: 4/5, IR/ER: 4-/5, Abd: 4-/5, Knee: 4+/5, Ankle: 5/5 Left: Hip: 4/5 throughout, Knee: 4+/5, Ankle: 5/5 Flex: HS: moderate, Gastroc: moderate Special Test: LLD: negative, Pelvic Alignment: WNL Sensation: WNL to gross touch bilateral Palpation: tender along parapsinals L3-sacrum, greater troch bilateral, piriformis bilateral Special Tests R Hip Scour: Negative R Hip Quadrant - Intraarticular Pathology: Negative R Hip ARA - Intraarticular Pathology: Positive R Hip FADDIR - Labrum: Positive R Hip Trendelenberg - Glut Medius: Negative L Hip Scour: Negative L Hip Quadrant - Intraarticular Pathology: Negative L Hip ARA - Intraarticular Pathology: Positive L Hip FADDIR - Labrum: Positive L Hip Trendelenberg - Glut Medius: Negative Balance/Special Test Scores Lower Extremity Functional Score: 40 Goals Goal 1:: Patient will be I with HEP and progression Goal Time Frame: 4-6 Weeks Goal 2:: Patient will maintain proper posture t/o tx to demo increased core s/s. Goal Time Frame: 4-6 Weeks Goal 3:: Patient will report sleeping through the night for 1 week Goal Time Frame: 4-6 Weeks Goal 4:: Patient will report 80% improvement Goal Time Frame: 4-6 Weeks Rehabilitation Potential Physical Therapy Diagnosis: Patient presents with decreased LE and core strength/stabilization and muscular endurance leading to increased pain with ADL's. Rehabilitation Potential: Good Anticipated Interventions Patient/Client Instruction: Educate patient on: Benefits of Fitness Program Therapeutic Exercise to Include: Strength training, Endurance training, Balance training, Coordination, Agility training, Body mechanics, Postural training, Flexibilty training, Gait and locomotor training, Neuromotor development, Passive ROM, Active ROM, Dynamic Lumbar Stabilization and Scapular Strength/Stabilization For the Purpose of:: To improve muscle performance and motor function TENS: Yes Cryotherapy (ice pack, ice massage): Yes Thermo therapy (hot pack): Yes Ultrasound (thermal/non thermal): Yes Text: Thank you for the opportunity to evaluate your patient. For Medicare and Medicare HMO plans, please review the plan of care and approve it. It will need to be FAXED BACK to us at [phone] for Medicare purposes. For Medicare only, by signing this I certify the plan of care. Please let me know if there are questions (more content not included)... Normal [facility] Internal Medicine Office Vis iton 09-09-2024 Internal Medicine Office Visit [facility] [address] [place] [address] [place] [address] OFFICE VISIT Date of Service: 09/10/24 MR#: [id number] Acct: [id number] Name: DORY HENDERSON Rep #: [id number] : 1985 Provider: Dr. Brooks narayan MD Age/Sex: 39/F Location: [facility] Status: Signed Intake Vital Signs 03/12/24 08:58 04/14/24 19:22 09/02/24 09:30 09/10/24 08:59 Height 5 ft 4 in 5 ft 4 in 5 ft 4 in 5 ft 4 in Weight: 257 lb BMI 44.1 BP 128/72 H Blood Pressure Location Lt brachial Position Sitting Respiration 18 Pulse 93 Pulse Source Monitor Temp 97.8 F Temp Source Temporal Pulse Oximetry (%) 99 Oxygen Delivery Method room air Intake Visit Reasons: 6 M FU Chief Complaint: 6 M FU Is patient in pain?: Yes (7 lower back and hips ) Allergies quetiapine fumarate (From [employer]) Allergy (Verified 09/10/24 08:58) Other exenatide (From YotomojordanOndeego Hayden) Adverse Reaction (Intermediate, Verified 09/10/24 08:58) Swelling Sulfa (Sulfonamide Antibiotics) Adverse Reaction (Verified 09/10/24 08:58) Diarrhea Medications ???Medication ???Instructions ???Recorded ???Confirmed ???Type blood sugar diagnostic (OneTouch #200 ea 05/31/23 09/10/24 Rx Verio test strips) pen needle, diabetic 32 gauge x #100 ea 07/12/23 09/10/24 Rx 5/32 (BD Ultra-Fine Ivet Pen Needle) arm brace (Wrist Brace) #2 ea 09/12/23 09/10/24 Rx amlodipine 5 mg tablet 5 mg PO QDAY 03/12/24 09/10/24 His tory clonazepam 0.5 mg tablet (Klonopin) 0.5 mg PO DAILY PRN anxiety #15 03/18/24 09/10/24 Rx tabs ondansetron 4 mg disintegrating 4 mg PO Q8H PRN PRN Nausea #10 tab s 04/15/24 09/10/24 Rx tablet metformin 1,000 mg tablet 1,000 mg PO BID #180 tabs 05/08/24 09/10/24 Rx pantoprazole 40 mg tablet,delayed 40 mg PO DAILY #30 tabs 05/13/24 09/10/24 Rx release hydrochlorothiazide 12.5 mg tablet 25 mg PO QAM 07/18/24 09/10/24 H istory loratadine 10 mg tablet (Claritin) 10 mg PO QDAY PRN 07/18/2409/10 History buspirone 15 mg tablet 15 mg PO TID #90 tabs 08/26/2411/27 Rx atomoxetine 25 mg capsule 25 mg PO ONCE #30 caps 09/02/24 Rx liraglutide 0.6 mg/0.1 mL (18 mg/3 mg subcut 09/02/24 09/10/24 Hist ory mL) subcutaneous pen injector Nurse's Note: pt reports having pain in her lower back and hips as well as her right ankle. [facility] Medical History ADHD Concentration deficit induced hypertension, ESTHER (generalized anxiety disorder) History of depression Earache, left Wears glasses Depression Anxiety Alcohol use Diabetes Fatty liver Back pain Migraine headache Dietary restriction History of ulceration Gastric reflux Non-smoker Shortness of breath on exertion Hypertension Infestation by mites Contact dermatitis Carpal tunnel syndrome Acute otitis media, right Tonsillolith Allergic dermatitis GERD (gastroesophageal reflux disease) Diabetes type 2, controlled High blood pressure BPPV (benign paroxysmal positional vertigo) Pre-eclampsia, Surgical History History of hysteroscopy History of esophagogastroduodenoscopy (EGD) Family History Mother Arthritis Anxiety Fibromyalgia Depression Hypertension Grandfather Colon cancer Father Heart disease Hypertension Myocardial infarction Cancer lung/kidney Social History (Updated 09/10/24 @ 09:[address] 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 1. Little interest or pleasure in doing things: not at all 2. Feeling down, depressed, or hopeless: not at all 3. Trouble falling or staying asleep, or sleeping too much: not at all 4. Feeling tired or having little energy: several days 5. Poor appetite or overeating: not at all 6. Feeling bad about yourself - or that you are a failure or have let yourself and your family down: not at all 7. Trouble concentrating on things, such as reading the newspaper or watching television: several days 8. Moving or speaking so slowly that other people could have noticed? - Or the opposite (more content not included)... Normal [facility] MR/BMS.BPon 09-02-2024 MR/BMS.BP [facility] [address], [address] [place] [address] OFFICE VISIT Date of Service: 09/02/24 MR#: [id number] Acct: [id number] Name: DORY HENDERSON Rep #: [id number] : 1985 Provider: Dr. Sharad Dumont se, DO Age/Sex: 39/F Location: [facility] Status: Signed Intake Vital Signs 07/03/24 09:30 09/01/24 13:01 09/02/24 09:30 Height 5 ft 4 in 5 ft 4 in 5 ft 4 in Weight: 261 lb BMI 44.8 BP 149/98 H Blood Pressure Location Rt brachial Position Sitting Respiration 16 Pulse 114 H Pulse Source Monitor BP Intake Visit Reasons: Follow up 2 m Accompanied by: Self Allergies quetiapine fumarate (From Seroquel) Allergy (Verified 09/02/24 09:33) Other exenatide (From BydureOndeego BCise) Adverse Reaction (Intermediate, Verified 09/02/24 09:33) Swelling Sulfa (Sulfonamide Antibiotics) Adverse Reaction (Verified 09/02/24 09:33) Diarrhea Medications ???Medication ???Instructions ???Recorded ???Confirmed ???Type blood sugar diagnostic (OneTouch #200 ea 05/31/23 09/02/24 Rx Verio test strips) pen needle, diabetic 32 gauge x #100 ea 07/12/23 09/02/24 Rx 5/32 (BD Ultra-Fine Ivet Pen Needle) arm brace (Wrist Brace) #2 ea 09/12/23 09/02/24 Rx amlodipine 5 mg tablet 5 mg PO QDAY 03/12/24 09/02/24 His tory clonazepam 0.5 mg tablet (Klonopin) 0.5 mg PO DAILY PRN anxiety #15 03/18/24 09/02/24 Rx tabs ondansetron 4 mg disintegrating 4 mg PO Q8H PRN PRN Nausea #10 tab s 04/15/24 09/02/24 Rx tablet metformin 1,000 mg tablet 1,000 mg PO BID #180 tabs 05/08/24 09/02/24 Rx pantoprazole 40 mg tablet,delayed 40 mg PO DAILY #30 tabs 05/13/24 09/02/24 Rx release hydrochlorothiazide 12.5 mg tablet 25 mg PO QAM 07/18/24 09/02/24 H istory loratadine 10 mg tablet (Claritin) 10 mg PO QDAY PRN 07/18/2409/02 History buspirone 15 mg tablet 15 mg PO TID #90 tabs 08/26/2403/29 Rx atomoxetine 25 mg capsule 25 mg PO ONCE #30 caps 09/02/24 Rx liraglutide 0.6 mg/0.1 mL (18 mg/3 mg subcut 09/02/24 09/02/24 Hist ory mL) subcutaneous pen injector [facility] Medical History (Updated 09/02/24 @ 09:[address] Sharad Santiago, ) ADHD Concentration deficit induced hypertension, ESTHER (generalized anxiety disorder) History of depression Earache, left Wears glasses Depression Anxiety Alcohol use Diabetes Fatty liver Back pain Migraine headache Dietary restriction History of ulceration Gastric reflux Non-smoker Shortness of breath on exertion Hypertension Infestation by mites Contact dermatitis Carpal tunnel syndrome Acute otitis media, right Tonsillolith Allergic dermatitis GERD (gastroesophageal reflux disease) Diabetes type 2, controlled High blood pressure BPPV (benign paroxysmal positional vertigo) Pre-eclampsia, Surgical History History of hysteroscopy History of esophagogastroduodenoscopy (EGD) Family History Mother Arthritis Anxiety Fibromyalgia Depression Hypertension Grandfather Colon cancer Father Heart disease Hypertension Myocardial infarction Cancer lung/kidney Social History adopted: No household members: spouse and children 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 Reports that her blood pressure has been doing better at home, and has been lower at other doctor's appointments. Describes her brain as being in a fog. Describes having difficulty with word finding and feelings she stumbles in her speech. Feels like her this makes somewhat inpatient. Has been having difficulty with completing tasks/organizing house chores. This is largely unchanged. Feels like she is lazy, but knows she needs to do it. Gives example of having a leak in her kitchen, but cannot act upon cleaning the kitchen to get ready for repair. Mood has been ok. Does feel mildly more irritable. Has had a little more anxiety in recent past. Denies any significant panic symptoms. Sleep remains somewhat broken. 9 month old daughter has been having some sleep difficulties which means Dory has (more content not included)... Normal [facility] MR/BMS.BPon 09-01-2024 MR/BMS.BP [address], [address] [place] [address] OFFICE VISIT Date of Service: 09/01/24 MR#: [id number] Acct: [id number] Name: DORY HENDERSON Rep #: [id number] : 1985 Provider: [facility] Jessika vinson Age/Sex: 39/F Location: [facility] Status: Signed Intake Vital Signs 05/20/24 09:23 08/11/24 12:47 09/01/24 13:01 Height 5 ft 4 in 5 ft 4 in 5 ft 4 in BP Intake Visit Reasons: Follow up Allergies quetiapine fumarate (From Seroquel) Allergy (Verified 07/18/24 10:39) Other exenatide (From Bydureon BCise) Adverse Reaction (Intermediate, Verified 07/18/24 10:39) Swelling Sulfa (Sulfonamide Antibiotics) Adverse Reaction (Verified 07/18/24 10:39) Diarrhea PFSH Medical History Concentration deficit induced hypertension, ESTHER (generalized anxiety disorder) History of depression Earache, left Wears glasses Depression Anxiety Alcohol use Diabetes Fatty liver Back pain Migraine headache Dietary restriction History of ulceration Gastric reflux Non-smoker Shortness of breath on exertion Hypertension Infestation by mites Contact dermatitis Carpal tunnel syndrome Acute otitis media, right Tonsillolith Allergic dermatitis GERD (gastroesophageal reflux disease) Diabetes type 2, controlled High blood pressure BPPV (benign paroxysmal positional vertigo) Pre-eclampsia, Surgical History History of hysteroscopy History of esophagogastroduodenoscopy (EGD) Family History Mother Arthritis Anxiety Fibromyalgia Depression Hypertension Grandfather Colon cancer Father Heart disease Hypertension Myocardial infarction Cancer lung/kidney Social History adopted: No household members: spouse and children current occupational status: disabled 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 She reported that sleep has been difficult attributing this to her child's recent difficulty sleeping. Dory identified that if she is wakened unexpectedly by her child that she is unable to resume sleep even when her child goes back to sleep. She stated that her sleep schedule is disrupted with her broken sleep during the day and night. Dory described waking up irritable on 09/01/2024, which affected her interactions with her children. She reported taking Benadryl at times but waking sedated. Encouraged verbalization of emotions while providing support. Normalized emotions. Problem solved ways to resume her sleep cycle. Discussed recent anxiety exploring coping strategies. Dory stated that breathing historically has been ineffective as a coping skill for her. Dory identified taking breaks from stressors and use of distraction as helpful. She discussed times when her distractions become stressful such as playing videogames with others who are not playing fairly. Worked on assertiveness. No SI. Future-oriented. Exam Mental Status Exam - Psych Appearance casually dressed and adequately groomed Attitude cooperative, calm and engaged Activity/Motor Behavior appropriate eye contact and fidgeting Speech regular rate, regular volume and regular prosody Mood anxious Affect anxious Thought Process linear, logical and coherent Thought Content no delusions and no hallucinations Suicidal Ideation none Homicidal Ideation none Attention intact Concentration impaired (Per pt. report.) Sensorium/Orientation awake, alert and oriented x3 Memory/Cognition other (Reports occasional times of memory problems.) Insight good Judgement good Assessment Plan Assessment Plan (1) Depression: Qualifiers: Depression Type: major depressive disorder Major depression recurrence: recurrent Active/Remission status: in partial remission Qualified Code(s): F33.41 - Major depressive disorder, recurrent, in partial remission Plan: BH therapy using CBT, DBT, and ACT interventions to address thought patterns contributing to depressive symptoms and teach coping skills. Continued psychiatric services to monitor depressive symptoms and medication effectiveness. Pt. to call 911, call suicide prevention lindsey (more content not included)... Normal [facility] MR/BMS.BPon 08-18-2024 MR/BMS.[address], [address] [place] [address] OFFICE VISIT Date of Service: 08/18/24 MR#: [id number] Acct: [id number] Name: DORY HENDERSON Rep #: [id number] : 1985 Provider[facility] Age/Sex: 39/F Location: [facility].BP Status: Signed Intake Vital Signs 05/20/24 09:23 08/11/24 12:47 08/18/24 11:13 Height 5 ft 4 in 5 ft 4 in 5 ft 4 in BP Intake Visit Reasons: Follow up Allergies quetiapine fumarate (From Seroquel) Allergy (Verified 07/18/24 10:39) Other exenatide (From Bydureon BCise) Adverse Reaction (Intermediate, Verified 07/18/24 10:39) Swelling Sulfa (Sulfonamide Antibiotics) Adverse Reaction (Verified 07/18/24 10:39) Diarrhea [facility] Medical History Concentration deficit induced hypertension, ESTHER (generalized anxiety disorder) History of depression Earache, left Wears glasses Depression Anxiety Alcohol use Diabetes Fatty liver Back pain Migraine headache Dietary restriction History of ulceration Gastric reflux Non-smoker Shortness of breath on exertion Hypertension Infestation by mites Contact dermatitis Carpal tunnel syndrome Acute otitis media, right Tonsillolith Allergic dermatitis GERD (gastroesophageal reflux disease) Diabetes type 2, controlled High blood pressure BPPV (benign paroxysmal positional vertigo) Pre-eclampsia, Surgical History History of hysteroscopy History of esophagogastroduodenoscopy (EGD) Family History Mother Arthritis Anxiety Fibromyalgia Depression Hypertension Grandfather Colon cancer Father Heart disease Hypertension Myocardial infarction Cancer lung/kidney Social History adopted: No household members: spouse and children current occupational status: disabled 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 She reported some reduction in her anxiety as her was on vacation allowing her to take breaks from the children and engage in pleasant activities. Sleep has been difficult due to youngest's sleep difficulties. Explored napping and impact on sleep schedule. Discussed stressors including family illness, children's frequent medical appointments, and children's behaviors at times. Encouraged verbalization of emotions while providing support. Worked on coping. Dory is taking time to engage in pleasant activities, remove herself from situations to calm herself, and going for works. These strategies were reinforced. Explored her schedule. Despite having a number of family appointments, Dory is doing well maintaining a schedule. No SI. Future-oriented. Exam Mental Status Exam - Psych Appearance casually dressed, adequately groomed and no apparent distress Attitude cooperative, calm and engaged Activity/Motor Behavior appropriate eye contact and fidgeting Speech regular rate, regular volume and regular prosody Mood OK and anxious Affect congruent Thought Process linear, logical and coherent Thought Content no delusions and no hallucinations Suicidal Ideation none Homicidal Ideation none Attention intact Concentration impaired (Per pt. report.) Sensorium/Orientation awake, alert and oriented x3 Memory/Cognition other (Reports occasional times of memory problems.) Insight good Judgement good Assessment Plan Assessment Plan (1) Depression: Qualifiers: Depression Type: major depressive disorder Major depression recurrence: recurrent Active/Remission status: in partial remission Qualified Code(s): F33.41 - Major depressive disorder, recurrent, in partial remission Plan: BH therapy using CBT, DBT, and ACT interventions to address thought patterns contributing to depressive symptoms and teach coping skills. Continued psychiatric services to monitor depressive symptoms and medication effectiveness. Pt. to call 911, call suicide prevention hotline, or go to ER if experiencing suicidal ideation with plan and intent and/or feel unable to ensure own safety. (2) ESTHER (generalized anxiety disorder): Plan: BH therapy using CBT, DBT, and ACT interventions to address thought patter (more content not included)... Normal [facility] 08-12-2024 Urine Volume, Total 650 ml Normal [facility] Comment on above: Order Comment: 650ML Performed By: #### N GPCR1, CTPCR #### [address] 08-11-2024 Cortisol Free 24h Ur 4 UG/24 HR Low 6-42 [facility] Comment on above: Order Comment: 650ML Result Comment: Perf ormed At: [facility] [id number] Jerry Nagel MD Ph:[phone] Performed By: #### N GPCR1, CTPCR #### [place] [address] Cortisol Free Ur 6 UG/L Normal Undefined [facility] Comment on above: Order Comment: 650ML Result Comment: This test was developed and its performance characteristics determined by [facility]. It has not been cleared or approved by the Food and Drug Administration. Performed By: #### N GPCR1, CTPCR #### [address] [address] METUon 08-11-2024 Urine Volume, Total 650 ml Normal [facility] Comment on above: Order Comment: 650ML Performed By: #### C AU24, NAU24 #### [facility] [address] [place] [id number] #### [id number], TVOLCRE, UALDOS #### [address] [address] MISCNBon 08-11-2024 [facility]. lab Send Out (Non Blood) See Comments Normal [facility] Comment on above: Order Comment: Aquilino kumar see scanned report. Thanks Performed By: #### 5 [id number] #### [address] [address] MR/BMS.BPon 08-11-2024 [place] [address] OFFICE VISIT Date of Service: 08/11/24 MR#: [id number] Acct: [id number] Name: DORY HENDERSON Christina Rep #: [id number] : 1985 Provider: [facility] Age/Sex: 39/F Location: [facility].BP Status: Signed Intake Vital Signs 05/20/24 09:23 07/18/24 10:38 08/11/24 12:47 Height 5 ft 4 in 5 ft 4 in 5 ft 4 in Weight: 273 lb BMI 46.8 BP 138/82 H Blood Pressure Location Rt brachial Position Sitting Respiration 18 Pulse 100 Pulse Source Monitor Temp 97.8 F Pulse Oximetry (%) 98 Oxygen Delivery Method room air BP Intake Visit Reasons: Follow up Allergies quetiapine fumarate (From Seroquel) Allergy (Verified 07/18/24 10:39) Other exenatide (From Bydureon BCise) Adverse Reaction (Intermediate, Verified 07/18/24 10:39) Swelling Sulfa (Sulfonamide Antibiotics) Adverse Reaction (Verified 07/18/24 10:39) Diarrhea PFSH Medical History Concentration deficit induced hypertension, ESTHER (generalized anxiety disorder) History of depression Earache, left Wears glasses Depression Anxiety Alcohol use Diabetes Fatty liver Back pain Migraine headache Dietary restriction History of ulceration Gastric reflux Non-smoker Shortness of breath on exertion Hypertension Infestation by mites Contact dermatitis Carpal tunnel syndrome Acute otitis media, right Tonsillolith Allergic dermatitis GERD (gastroesophageal reflux disease) Diabetes type 2, controlled High blood pressure BPPV (benign paroxysmal positional vertigo) Pre-eclampsia, Surgical History History of hysteroscopy History of esophagogastroduodenoscopy (EGD) Family History Mother Arthritis Anxiety Fibromyalgia Depression Hypertension Grandfather Colon cancer Father Heart disease Hypertension Myocardial infarction Cancer lung/kidney Social History adopted: No household members: spouse and children current occupational status: disabled 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 She reported that her anxiety was a 7 on a scale of 1 to 10 with 10 being worst. Dory identified that sleep has been difficult as her mind races, she feels uncomfortable, and is restless. Explored recent stressors contributing to her anxiety. Dory reported financial stressors, children being sick, and coping with neighbors' behaviors. Encouraged verbalization of emotions while providing support. Normalized emotions. Examined problem solving and solutions Dory chose to cope with stressors. Reinforced her efforts. Worked on values and value-based action. No SI. Future-oriented. Exam Mental Status Exam - Psych Appearance casually dressed and no apparent distress Attitude cooperative and calm Activity/Motor Behavior fidgeting Speech regular rate, regular volume and regular prosody Mood OK and anxious Affect congruent Thought Process linear, logical and coherent Thought Content no delusions and no hallucinations Suicidal Ideation none Homicidal Ideation none Attention intact Concentration impaired (Per pt. report.) Sensorium/Orientation awake, alert and oriented x3 Memory/Cognition other (Reports occasional times of memory problems.) Insight good Judgement good Assessment Plan Assessment Plan (1) Depression: Qualifiers: Depression Type: major depressive disorder Major depression recurrence: recurrent Active/Remission status: in partial remission Qualified Code(s): F33.41 - Major depressive disorder, recurrent, in partial remission Plan: therapy using CBT, DBT, and ACT interventions to address thought patterns contributing to depressive symptoms and teach coping skills. Continued psychiatric services to monitor depressive symptoms and medication effectiveness. Pt. to call 911, call suicide prevention hotline, or go to ER if experiencing suicidal ideation with plan and intent and/or feel unable to ensure own safety. (2) ESTHER (generalized anxiety disorder): Plan: therapy using CBT, DBT, and ACT interventions to address thought pat (more content not included)... Normal [facility] METUon 08-09-2024 Metaneph 24h Ur 83 UG/24 HR Normal 36-209 [facility] Comment on above: Order Comment: 650ML Result Comment: Perf ormed At: [facility] [id number] Jerry Nagel MD Ph:[phone] Performed By: #### C AU24, NAU24 #### [place] [address] #### [id number], JOSE MARIA GONZALEZ #### [address] [address] Metaneph Ur 128 UG/L Normal Undefined [facility] Comment on above: Order Comment: 650ML Result Comment: This test was developed and its performance characteristics determined by [facility]. It has not been cleared or approved by the Food and Drug Administration. Performed By: #### C AU24, NAU24 #### [place] [id number] #### [id number], TVOLCRE UALDOS #### [address] [address] Normetaneph 24h Ur 291 UG/24 HR Normal 131-612 [facility] Comment on above: Order Comment: 650ML Performed By: #### C AU24, NAU24 #### [address] [address] #### [id number], TVOLCRE, UALDOS #### [address] [address] Normetaneph Ur 448 UG/L Normal Undefined [facility] Comment on above: Order Comment: 650ML Result Comment: This test was developed and its performance characteristics determined by [facility]. It has not been cleared or approved by the Food and Drug Administration. Performed By: #### C AU24, NAU24 #### [place] [address] #### [id number], TVOLCRE, UALDOS #### [place] [address] UALDOSon 08-07-2024 Period (Hrs) 24 hr Normal [facility] Comment on above: Order Comment: 650ML Result Comment: Perf ormed By: [facility] [employer] [place] [address] Book Jacket Cover Machine Operator: Clarke Vizcarra III, M.D. CLIA#: [id number] Performed By: #### C AU24, NAU24 #### [place] [address] #### [id number], TVOLCRE, UALDOS #### [address] [address] U24 K 38 mmol/24 hr Normal 30-99 [facility] Comment on above: Order Comment: 650ML Result Comment: Perf ormed By: [facility] [employer] [place] [address] Book Jacket Cover Machine Operator: Clarke Vizcarra III, M.D. CLIA#: [id number] Performed By: #### C AU24, NAU24 #### [place] [address] #### [id number], TVOLCRE, UALDOS #### [address] [address] U24 Na 17 mmol/24 hr Low 40-220 [facility] Comment on above: Order Comment: 650ML Result Comment: Perf ormed By: [place] [address] Book Jacket Cover Machine Operator: Clarke Vizcarra III, M.D. CLIA#: [id number] Performed By: #### C AU24, NAU24 #### [address] [address] #### [id number], TVOLCRE, UALDOS #### [address] [address] Ur Aldosterone 29.0 UG/24 HR High 3.0-<28.1 [facility] Comment on above: Order Comment: 650ML Result Comment: 650M L Performed By: [place] [address] Book Jacket Cover Machine Operator: Clarke Vizcarra III, M.D. CLIA#: [id number] Performed By: #### C AU24, NAU24 #### [place] [address] #### [id number], TVOLCRE, UALDOS #### [address] [address] Volume (ml) 650 ml Normal [facility] Comment on above: Order Comment: 650ML Result Comment: 650M L Performed By: [place] [address] Book Jacket Cover Machine Operator: Clarke Vizcarra III, M.D. CLIA#: [id number] Performed By: #### C AU24, NAU24 #### [place] [address] #### [id number], TVOLCRE, UALDOS #### [address] [address] [id number] 08-06-2024 Calcium [Mass/Vol] 40.0 mg/dL Normal [facility] Comment on above: Order Comment: 650ML Performed By: #### C AU24, NAU24 #### [place] [address] #### [id number], TVOLCRE, UALDOS #### [address] [address] U24 Calcium 260 mg/24hr Normal 100-300 [facility] Comment on above: Order Comment: 650ML Performed By: #### C AU24, NAU24 #### [place] [address] #### [id number], TVOLCRE, UALDOS #### [place] [address] [id number] 08-06-2024 Sodium [Moles/Vol] 26 mmol/L Normal [facility] Comment on above: Order Comment: 650ML Performed By: #### C AU24, NAU24 #### [place] [address] #### [id number], TVOLCRE, UALDOS #### [place] [address] U24 Sodium 17 mEq/24hr Low 40-220 [facility] Comment on above: Order Comment: 650ML Performed By: #### C AU24, NAU24 #### [place] [address] #### [id number], TVOLCRE, UALDOS #### [place] [address] .TV 24 Houron 08-05-2024 Collection Period 24 hour Normal [facility] Comment on above: Order Comment: 650ML Performed By: #### C AU24, NAU24 #### [place] [address] #### [id number], TVOLCRE, UALDOS #### [place] [address] U24 Total Volume 650 mL/24hr [facility] Comment on above: Order Comment: 650ML Performed By: #### C AU24, NAU24 #### [place] [address] #### [id number], TVOLCRE, UALDOS #### [place] [address] 24CRUon 08-05-2024 Creatinine [Mass/Vol] 207.8 mg/dL Normal 29.0-226.0 [facility] Comment on above: Performed By: #### 5 [address] #### [address] [address] U24 Creatinine 1.35 g/24hr Normal 0.67-1.59 [facility] Comment on above: Performed By: #### 5 [address] #### [place] [id number] [place] [address] U24 Total Volume 650 mL/24hr Normal [facility] Comment on above: Performed By: #### 5 [address] #### [place] [address] LABORATORYOrdered By: Cem Gutierrez on 08-05-2024 Calcium (24H U) [Mass/Time] 260 MG/24 HR Normal 100 - 300 mg/24hr AH ADM SS Calcium (U) [Mass/Vol] 40.0 mg/dL Invalid Interpretation Code AH ADM SS Sodium (24H U) [Moles/Time] 17 mEq/24 hr Low 40 - 220 mEq/24hr AH ADM SS Sodium (U) [Moles/Vol] 26 mmol/L Invalid Interpretation Code AH ADM SS LABORATORYOrdered By: Silvia Daugherty on 08-05-2024 Collection Period 24 hour(s) Invalid Interpretation Code AO Chemistry S Creatinine (24H U) [Mass/Time] 1.35 g/24 hr Normal 0.67 - 1.59 g/24 hr AO ADM SS Creatinine (U) [Mass/Vol] 207.8 mg/dL Normal 29.0 - 226.0 mg/dL AO ADM SS LABORATORYOrdered By: LABCOR P CONTRIBUTOR_SYSTEM on 08-05-2024 Metaneph 24h Ur (LC) 83 UG/24 HR Invalid Interpretation Code 36-209 [facility] Comment on above: Result Comment: Perf ormed At: [facility] [address] [id number] Jerry Nagel MD Ph:[phone] Metaneph Ur (LC) 128 UG/L Invalid Interpretation Code Undefined [facility] Comment on above: Result Comment: This test was developed and its performance characteristics determined by [facility]. It has not been cleared or approved by the Food and Drug Administration. Normetaneph 24h Ur (LC) 291 UG/24 HR Invalid Interpretation Code 131-612 [facility] Normetaneph Ur (LC) 448 UG/L Invalid Interpretation Code Undefined [facility] Comment on above: Result Comment: This test was developed and its performance characteristics determined by [facility]. It has not been cleared or approved by the Food and Drug Administration. LABORATORYOrdered By: CARMEN ARAMBULA CONTRIBUTOR_SYSTEM on 08-05-2024 Period (Hrs) 24 1 Invalid Interpretation Code AO Sendouts SS Comment on above: Result Comment: Perf ormed By: [place] [address] Book Jacket Cover Machine Operator: Clarke Vizcarra III, M.D. CLIA#: [id number] U24 K 38 mmol/24 hr Invalid Interpretation Code 30-99 [facility] Comment on above: Result Comment: Perf ormed By: [place] [address] Book Jacket Cover Machine Operator: Clarke Vizcarra III, M.D. CLIA#: [id number] U24 Na 17 mmol/24 hr Low 40-220 [facility] Comment on above: Result Comment: Perf ormed By: [place] [address] Book Jacket Cover Machine Operator: Clarke Vizcarra III, M.D. CLIA#: [id number] Ur Aldosterone 29.0 UG/24 HR High 3.0-<28.1 AO Send outs SS Comment on above: Result Comment: 650M L Performed By: [place] [address] Book Jacket Cover Machine Operator: Clarke Vizcarra III, M.D. CLIA#: [id number] Volume (ml) 650 mL Invalid Interpretation Code AO Sendouts SS Comment on above: Result Comment: 650M L Performed By: [place] [address] Book Jacket Cover Machine Operator: Clarke Vizcarra III, M.D. CLIA#: [id number] Sylvester 08-05-2024 / [address], [place] [address] OFFICE VISIT Date of Service: 08/04/24 MR#: [id number] Acct: [id number] Name: DORY HENDERSON Rep #: [id number] : 1985 Provider: SADE vinson Age/Sex: 39/F Location: [facility].BP Status: Signed Intake Vital Signs 05/20/24 09:23 07/18/24 10:38 08/05/24 06:15 Height 5 ft 4 in 5 ft 4 in 5 ft 4 in BP Intake Visit Reasons: Continuing care Allergies quetiapine fumarate (From Seroquel) Allergy (Verified 07/18/24 10:39) Other exenatide (From Bydureon BCise) Adverse Reaction (Intermediate, Verified 07/18/24 10:39) Swelling Sulfa (Sulfonamide Antibiotics) Adverse Reaction (Verified 07/18/24 10:39) Diarrhea PFSH Medical History Concentration deficit induced hypertension, ESTHER (generalized anxiety disorder) History of depression Earache, left Wears glasses Depression Anxiety Alcohol use Diabetes Fatty liver Back pain Migraine headache Dietary restriction History of ulceration Gastric reflux Non-smoker Shortness of breath on exertion Hypertension Infestation by mites Contact dermatitis Carpal tunnel syndrome Acute otitis media, right Tonsillolith Allergic dermatitis GERD (gastroesophageal reflux disease) Diabetes type 2, controlled High blood pressure BPPV (benign paroxysmal positional vertigo) Pre-eclampsia, Surgical History History of hysteroscopy History of esophagogastroduodenoscopy (EGD) Family History Mother Arthritis Anxiety Fibromyalgia Depression Hypertension Grandfather Colon cancer Father Heart disease Hypertension Myocardial infarction Cancer lung/kidney Social History adopted: No household members: spouse and children current occupational status: disabled 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 She receives psychiatric services at [facility] through Dr. Sharad Santiago. Dory is prescribed Buspar 15 mg TID. Atomoxetine 25mg is being considered for concentration problems if she obtains lower blood pressure readings. Dory previously worked with this therapist at [facility]. Prior to that, she participated in counseling at [facility] seeing several therapists there. She identifies currently struggling with anxious symptoms and difficulties concentration. Household tasks are especially difficult to complete. In the past, Dory has had intrusive thoughts about something bad happening to her children, which has interfered with her sleep. She reports that her depression is currently well managed. oDry has experienced depression with one of her pregnancies. She was diagnosed with Bipolar Disorder in the past and has tried a number of medications. Dory resided in a senior living ages [age] and reports a trauma history. Sleep - States 90% dependent on how the baby sleeps. Identifies not horrible and it's been worse. Interests - Reports being able to enjoy interests if she can remain focused. States interests are reading, coloring, Pokemon, and video games. Energy - Identifies poor energy. Reports spurts of being energetic. Guilt - Denies worthlessness or hopelessness. Reports some guilt about being hospitalized for high blood pressure following the of her youngest child. Concentration - Reports difficulty focusing and completing tasks. Identifies ability to sometimes hyperfocus. Appetite - Reports appetite have been inconsistent and time periods of weight gain. Psychomotor - Describes times of psychomotor slowing as well as times of restlessness. Suicide - Denies any recent SI. Last SI occurred when she was a teen. Suicide attempt by overdosing on a bottle of Tylenol at age 16. Denies any family history of suicide. Memory - Identifies occasional memory problems. Anxiety - Reports anxiety is getting bad again. Identifies restlessness, difficulty sleeping, being shaky, and not being able t (more content not included)... Normal [facility] No Panel InformationOrdered By: Lenin Daugherty on 08-05-2024 U24 Total Volume 650 mL/24hr Invalid Interpretation Code AO Chemistry S DEXAon 08-02-2024 Dexamethasone Level 229 ng/dL Normal [facility] Comment on above: Result Comment: This test was developed and its performance characteristics determined by [facility]. It has not been cleared or approved by the Food and Drug Administration. Reference Range: Adults baseline: <30 8:00 AM following 1 mg dexamethasone previous evenin - 295 8:00 AM following 8 mg dexamethasone (4 x 2 mg doses) previous day: 1600 - 2850 Performed At: [employer] [address] [place] [id number] Va Perry MD Ph:[phone] Performed By: #### 5 [id number] #### [id number] [place], [place] [address] CORTon 07-29-2024 Cortisol Level 1.9 mcg/dL Normal [facility] Comment on above: Result Comment: Song isol AM Reference Range 6.5-26.0 mcg/dL Cortisol PM Reference Range 3.5-15.0 mcg/dL Performed By: #### 5 [id number] #### [address] [address] LABORATORYOrdered By: SYSTEM SYSTEM on 07-29-2024 Cortisol [Mass/Vol] 1.9 ug/dL Invalid Interpretation Code AH ADM SS Comment on above: Interpretive Data: C ortisol AM Reference Range 6.5-26.0 mcg/dL Cortisol PM Reference Range 3.5-15.0 mcg/dL Foot min 3 Viewson 5 Foot min 3 Views [facility] Imaging Services [address] [place] [address] [id number] Foot min 3 Views MR#: [id number] Acct: [id number] Name: DORY HENDERSON Rep #: [id number] : 1985 F 39 From: Dania Chung MD PCP: Dr. Brooks Acosta MD Status: DEP AMB Study: Foot min 3 Views Date of Exam: 07/21/24 Exam# [id number] Ordering Dr: Sriram Reese PA PROCEDURE: FOOT MIN 3 VIEWS 07/21/2024 REASON FOR EXAM: PAIN TECHNIQUE: 3 views of the right foot. COMPARISON: 06/26/2023 FINDINGS: No fracture or dislocation. Lucent nonaggressive appearing lesion at the lateral aspect of the 2nd middle phalanx is again noted, not significantly changed. No pathologic fracture identified. May correlate for site of pain. Developmental osseous fusion of the middle and distal phalanx of the 5th ray again seen, incidental. The joint spaces appear within limits. Achilles and plantar surface of the calcaneus enthesophyte spur formation again noted appears mildly increased at the Achilles surface. RAD/Foot min 3 Views IMPRESSION: No fracture or dislocation. Lucent nonaggressive appearing lesion at the lateral aspect of the 2nd middle phalanx is again noted, not significantly changed. No pathologic fracture identified. May correlate for site of pain. Developmental osseous fusion of the middle and distal phalanx of the 5th ray again seen, incidental. The joint spaces appear within limits. Achilles and plantar surface of the calcaneus enthesophyte spur formation again noted appears mildly increased at the Achilles surface. Reading Location: [id number] CC: Dr. Brooks Acosta MD; NAHID Dale Mosaic Tiler: Signed Normal [facility] Internal Medicine Office Vis ito 07-18-2024 Internal Medicine Office Visit [facility] [address] [place] [address] [place] [address] OFFICE VISIT Date of Service: 07/18/24 MR#: [id number] Acct: [id number] Name: DORY HENDERSON Christina Rep #: [id number] : 1985 Provider: NAHID Dale Age/Sex: 39/F Location: [facility] Status: Signed Intake Vital Signs 07/03/24 09:30 07/18/24 10:38 Height 5 ft 4 in 5 ft 4 in Weight: 272 lb 273 lb BMI 46.7 46.8 BP 172/92 H 138/82 H Blood Pressure Location Lt brachial Rt brachial Position Sitting Sitting Respiration 16 18 Pulse 74 100 Pulse Source Monitor Monitor Temp 97.8 F Temp Source Temporal Pulse Oximetry (%) 98 Oxygen Delivery Method room air Intake Visit Reasons: RIGHT HAND AND FOOT PAIN Chief Complaint: RIGHT HAND AND FOOT PAIN Is patient in pain?: Yes (6 pain in foot, 1 in right hand ) Allergies quetiapine fumarate (From Seroquel) Allergy (Verified 07/18/24 10:39) Other exenatide (From Byaudreyjose antonio BCi) Adverse Reaction (Intermediate, Verified 07/18/24 10:39) Swelling Sulfa (Sulfonamide Antibiotics) Adverse Reaction (Verified 07/18/24 10:39) Diarrhea Medications ???Medication ???Instructions ???Recorded ???Confirmed ???Type blood sugar diagnostic (OneTouch #200 ea 05/31/23 07/18/24 Rx Verio test strips) pen needle, diabetic 32 gauge x #100 ea 07/12/23 07/18/24 Rx (BD Ultra-Fine Ivet Pen Needle) arm brace (Wrist Brace) #2 ea 09/12/23 07/18/24 Rx amlodipine 5 mg tablet 5 mg PO QDAY 03/12/24 07/18/24 His tory clonazepam 0.5 mg tablet (Klonopin) 0.5 mg PO DAILY PRN anxiety #15 03/18/24 07/18/24 Rx tabs ondansetron 4 mg disintegrating 4 mg PO Q8H PRN PRN Nausea #10 tab s 04/15/24 07/18/24 Rx tablet metformin 1,000 mg tablet 1,000 mg PO BID #180 tabs 05/08/24 07/18/24 Rx pantoprazole 40 mg tablet,delayed 40 mg PO DAILY #30 tabs 05/13/24 07/18/24 Rx release buspirone 15 mg tablet 15 mg PO TID #90 tabs 06/04/24 Rx hydrochlorothiazide 12.5 mg tablet 25 mg PO QAM 07/18/24 History loratadine 10 mg tablet (Claritin) 10 mg PO QDAY PRN 07/18/2407/18 History Have you fallen in the past year?: No Nurse's Note: pt states that on 06/28 she crouched down to speak to her toddler and heard a loud cracking sound in her right foot, states that she has had alot of pain in the area since. states that she was swimming last Sunday and after she got out of the pool noted stiffness of the right hand. denies knowledge of any injury [facility] Medical History Concentration deficit induced hypertension, ESTHER (generalized anxiety disorder) History of depression Earache, left Wears glasses Depression Anxiety Alcohol use Diabetes Fatty liver Back pain Migraine headache Dietary restriction History of ulceration Gastric reflux Non-smoker Shortness of breath on exertion Hypertension Infestation by mites Contact dermatitis Carpal tunnel syndrome Acute otitis media, right Tonsillolith Allergic dermatitis GERD (gastroesophageal reflux disease) Diabetes type 2, controlled High blood pressure BPPV (benign paroxysmal positional vertigo) Pre-eclampsia, Surgical History History of hysteroscopy History of esophagogastroduodenoscopy (EGD) Family History Mother Arthritis Anxiety Fibromyalgia Depression Hypertension Grandfather Colon cancer Father Heart disease Hypertension Myocardial infarction Cancer lung/kidney Social History adopted: No household members: spouse and children current occupational status: disabled 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 Patient states that she had been squatting down when she felt and heard a pop while she was squatted down. She states that since then she has had continued pains int he foot area. She has not noticed any swelling (she states that it felt like it swelled initially), bruising, or any other changes. She notes pains when she is walking or when she stretches her legs. Pains are sort of generalized pains towards the base of t (more content not included)... Normal [facility] .Auto Diffon 07-17-2024 Basophil, Absolute 0.0 10 3/mcL Normal 0.0-0.3 [facility] Comment on above: Performed By: #### N GPCR1, CTPCR #### [address] [address] Basophils/100 WBC (Bld) 0.3 % Normal 0.0-2.5 [facility] Comment on above: Performed By: #### N GPCR1, CTPCR #### [address] [address] Eosinophil, Absolute 0.3 10 3/mcL Normal 0.0-0.7 [facility] Comment on above: Performed By: #### N GPCR1, CTPCR #### [address] [address] Eosinophils/100 WBC (Bld) 2.3 % Normal 0.0-6.0 [facility] Comment on above: Performed By: #### N GPCR1, CTPCR #### [address] [address] Lymphocyte, Absolute 2.4 10 3/mcL Normal 0.9-4.3 [facility] Comment on above: Performed By: #### N GPCR1, CTPCR #### [address] [address] Lymphocytes/100 WBC (Bld) 20.5 % Normal 20.0-40.0 [facility] Comment on above: Performed By: #### N GPCR1, CTPCR #### [address] [address] Monocyte, Absolute 0.7 10 3/mcL Normal 0.1-1.4 [facility] Comment on above: Performed By: #### N GPCR1, CTPCR #### [address] [address] Monocytes/100 WBC (Bld) 5.6 % Normal 2.0-13.0 [facility] Comment on above: Performed By: #### N GPCR1, CTPCR #### [address] [address] Neutrophils/100 WBC (Bld) 71.3 % Normal 50.0-75.0 [facility] Comment on above: Performed By: #### N GPCR1, CTPCR #### [address] [address] .GFRon 07-17-2024 Estimated Glomerular Filtration Rate 115 ml/min/1.73sqm Normal [facility] Comment on above: Result Comment: Stages of Chronic Kidney Disease (CKD) Stage Description eGFR(ml/min/1.73 sq.m.) CKD 1 Normal kidney function or >=90 normal kindney function with possible kidney damage (ex. Proteinuria) CKD 2 Kidney damage with mild loss 60-89 of kidney function CKD 3a Mild to moderate loss of kidney 45-59 function CKD 3b Moderate to severe loss of 30-44 of kindey function CKD 4 Severe loss of kidney function 15-29 CKD 5 Kidney failure <15 Note: (go live 2024) the eGFR calculation was updated to the 2020 CKD-EPI creatinine equation without a race factor to calculate the eGFR results. Performed By: #### N GPCR1, CTPCR #### [address] [address] .NEUABSon 07-17-2024 Neutrophil, Absolute 8.3 10 3/mcL High 2.3-8.1 [facility] Comment on above: Performed By: #### N GPCR1, CTPCR #### [place] [address] CBCon 07-17-2024 Erythrocyte distribution width (RBC) [Ratio] 15.6 % High 11.5-15.5 [facility] Comment on above: Performed By: #### A KATIA, VIDH, LIPID, GFR, ADIFF, TSH, CBC, IBC, FERR, CMP #### [id number] [place], [place] [address] #### INSLN, CPEP #### [address] [address] Hematocrit (Bld) [Volume fraction] 38.8 % Normal 34.0-46.0 [facility] Comment on above: Performed By: #### A KATIA, VIDH, LIPID, GFR, ADIFF, TSH, CBC, IBC, FERR, CMP #### [place] [address] #### INSLN, CPEP #### [place] [address] Hgb 12.8 G/dL Normal 12.0-16.0 [facility] Comment on above: Performed By: #### A KATIA, VIDH, LIPID, GFR, ADIFF, TSH, CBC, IBC, FERR, CMP #### [place] [address] #### INSLN, CPEP #### [place] [address] MCH (RBC) [Entitic mass] 25.4 pg Low 27.0-33.0 [facility] Comment on above: Performed By: #### A KATIA, VIDH, LIPID, GFR, ADIFF, TSH, CBC, IBC, FERR, CMP #### [place] [address] #### INSLN, CPEP #### [place] [address] MCHC 33.0 G/dL Normal 32.0-36.0 [facility] Comment on above: Performed By: #### A KATIA, VIDH, LIPID, GFR, ADIFF, TSH, CBC, IBC, FERR, CMP #### [place] [address] #### INSLN, CPEP #### [place] [address] MCV (RBC) [Entitic vol] 77.2 fL Low 80.0-99.0 [facility] Comment on above: Performed By: #### A KATIA, VIDH, LIPID, GFR, ADIFF, TSH, CBC, IBC, FERR, CMP #### [place] [address] #### INSLN, CPEP #### [place] [address] Platelet 313 10 3/mcL Normal 150-450 [facility] Comment on above: Performed By: #### A KATIA, VIDH, LIPID, GFR, ADIFF, TSH, CBC, IBC, FERR, CMP #### [address] [address] #### INSLN, CPEP #### [place] [address] Platelet mean volume (Bld) [Entitic vol] 8.3 fL Normal 6.6-10.5 [facility] Comment on above: Performed By: #### A KATIA, VIDH, LIPID, GFR, ADIFF, TSH, CBC, IBC, FERR, CMP #### [place] [address] #### INSLN, CPEP #### [place] [address] RBC 5.03 10 6/mcL Normal 4.10-5.30 [facility] Comment on above: Performed By: #### A KATIA, VIDH, LIPID, GFR, ADIFF, TSH, CBC, IBC, FERR, CMP #### [place] [address] #### INSLN, CPEP #### [place] [address] WBC 11.6 10 3/mcL High 4.5-10.8 [facility] Comment on above: Performed By: #### A KATIA, VIDH, LIPID, GFR, ADIFF, TSH, CBC, IBC, FERR, CMP #### [place] [address] #### INSLN, CPEP #### [place] [address] CMPon 07-17-2024 Albumin Level 3.6 G/dL Normal 3.5-5.0 [facility] Comment on above: Performed By: #### N GPCR1, CTPCR #### [place] [address] Albumin/Globulin [Mass ratio] 0.9 {ratio} Low 1.1-2.5 [facility] Comment on above: Performed By: #### N GPCR1, CTPCR #### [address] [address] ALP [Catalytic activity/Vol] 129 U/L Normal 40-135 [facility] Comment on above: Performed By: #### N GPCR1, CTPCR #### [address] [address] ALT [Catalytic activity/Vol] 95 U/L High 14-59 [facility] Comment on above: Performed By: #### N GPCR1, CTPCR #### [address] [address] AST [Catalytic activity/Vol] 47 U/L High 10-40 [facility] Comment on above: Performed By: #### N GPCR1, CTPCR #### [place] [id number] Bili Total 0.4 mg/dL Normal 0.2-1.0 [facility] Comment on above: Result Comment: Use of this assay is not recommended for patients undergoing treatment with eltrombopag due to the potential for falsely elevated results. Performed By: #### N GPCR1, CTPCR #### [place] [id number] BUN/Creatinine Ratio 17 ratio Normal 7-27 [facility] Comment on above: Performed By: #### N GPCR1, CTPCR #### [place] [id number] Calcium [Mass/Vol] 9.2 mg/dL Normal 8.4-10.2 [facility] Comment on above: Performed By: #### N GPCR1, CTPCR #### [place] [id number] Chloride [Moles/Vol] 104 mmol/L Normal 98-107 [facility] Comment on above: Performed By: #### N GPCR1, CTPCR #### [place] [id number] CO2 [Moles/Vol] 30 mmol/L High 22-29 [facility] Comment on above: Performed By: #### N GPCR1, CTPCR #### [address] [address] Creatinine [Mass/Vol] 0.69 mg/dL Normal 0.51-0.95 [facility] Comment on above: Performed By: #### N GPCR1, CTPCR #### [address] [address] Electrolyte Balance 4.0 mEq/L Normal 4.0-15.0 [facility] Comment on above: Performed By: #### N GPCR1, CTPCR #### [address] [address] Globulin 4.2 G/dL Normal 2.7-4.4 [facility] Comment on above: Performed By: #### N GPCR1, CTPCR #### [place] [id number] Glucose [Mass/Vol] 153 mg/dL High 70-105 [facility] Comment on above: Performed By: #### N GPCR1, CTPCR #### [address] [address] Potassium [Moles/Vol] 4.2 mmol/L Normal 3.5-5.1 [facility] Comment on above: Performed By: #### N GPCR1, CTPCR #### [address] [address] Sodium [Moles/Vol] 138 mmol/L Normal 136-145 [facility] Comment on above: Performed By: #### N GPCR1, CTPCR #### [address] [address] Total Protein 7.8 G/dL Normal 6.4-8.2 [facility] Comment on above: Performed By: #### N GPCR1, CTPCR #### [address] [address] Urea nitrogen [Mass/Vol] 12 mg/dL Normal 7-18 [facility] Comment on above: Performed By: #### N GPCR1, CTPCR #### [address] [address] CPEPon 07-17-2024 C-Peptide 4.56 ng/mL High 0.81-3.85 [facility] Comment on above: Performed By: #### N GPCR1, CTPCR #### [address] [address] Adolfo 07-17-2024 Ferritin [Mass/Vol] 62.0 ng/mL Normal 8.0-252.0 [facility] Comment on above: Performed By: #### N GPCR1, CTPCR #### [place] [address] IBCon 07-17-2024 TIBC 368 mcg/dL Normal 250-450 [facility] Comment on above: Performed By: #### N GPCR1, CTPCR #### [place] [address] INSLNon 07-17-2024 Insulin 19.64 munit/L Normal 2.60-37.60 [facility] Comment on above: Performed By: #### N GPCR1, CTPCR #### [place] [address] LABORATORYOrdered By: SYSTEM SYSTEM on 07-17-2024 25-hydroxyvitamin D3 [Mass/Vol] 28.5 ng/mL Invalid Interpretation Code AO ADM SS Comment on above: Interpretive Data: I nterpretive Values Based on Total 25(OH) Vitamin D: Deficient <20 ng/mL Insufficient 20 - <30 ng/mL Sufficient 30-100 ng/mL Albumin BCP dye [Mass/Vol] 3.6 G/dL Normal 3.5 - 5.0 G/dL AO ADM SS Albumin/Globulin [Mass ratio] 0.9 {ratio} Low 1.1 - 2.5 ratio AO ADM SS ALP [Catalytic activity/Vol] 129 U/L Normal 40 - 135 U/L AO ADM SS ALT With P-5'-P [Catalytic activity/Vol] 95 U/L High 14 - 59 U/L AO ADM SS AST With P-5'-P [Catalytic activity/Vol] 47 U/L High 10 - 40 U/L AO ADM SS Basophils (Bld) [#/Vol] 0.0 103/mcL Normal 0.0 - 0.3 10^3/mcL AO Workflow SS Basophils/100 WBC (Bld) 0.3 % Normal 0.0 - 2.5 % AO Workflow SS Bilirubin [Mass/Vol] 0.4 mg/dL Normal 0.2 - 1 .0 mg/dL AO ADM SS Comment on above: Interpretive Data: U se of this assay is not recommended for patients undergoing treatment with eltrombopag due to the potential for falsely elevated results. C peptide [Mass/Vol] 4.56 ng/mL High 0.81 - 3.85 ng/mL AH ADM SS Calcium [Mass/Vol] 9.2 mg/dL Normal 8.4 - 10. 2 mg/dL AO ADM SS Chloride [Moles/Vol] 104 mmol/L Normal 98 - 10 7 mmol/L AO ADM SS CO2 [Moles/Vol] 30 mmol/L High 22 - 29 mmol/L AO ADM SS Creatinine [Mass/Vol] 0.69 mg/dL Normal 0.51 - 0.95 mg/dL AO ADM SS Electrolyte Balance 4.0 mEq/L Normal 4.0 - 15 .0 mEq/L AO ADM SS Eosinophil, Absolute 0.3 103/mcL Normal 0.0 - 0 .7 10^3/mcL AO Workflow SS Eosinophils/100 WBC (Bld) 2.3 % Normal 0.0 - 6.0 % AO Workflow SS Erythrocyte distribution width (RBC) [Ratio] 15.6 % High 11.5 - 15.5 % AO Workflow SS Estimated Glomerular Filtration Rate 115 ml/min/1.73sqm Invalid Interpretation Code AO Chemistry S Comment on above: Interpretive Data: Stages of Chronic Kidney Disease (CKD) Stage Description eGFR(ml/min/1.73 sq.m.) CKD 1 Normal kidney function or >=90 normal kindney function with possible kidney damage (ex. Proteinuria) CKD 2 Kidney damage with mild loss 60-89 of kidney function CKD 3a Mild to moderate loss of kidney 45-59 function CKD 3b Moderate to severe loss of 30-44 of kindey function CKD 4 Severe loss of kidney function 15-29 CKD 5 Kidney failure <15 Note: (go live 2024) the eGFR calculation was updated to the 2020 CKD-EPI creatinine equation without a race factor to calculate the eGFR results. Ferritin [Mass/Vol] 62.0 ng/mL Normal 8.0 - 252.0 ng/mL AO ADM SS Globulin 4.2 G/dL Normal 2.7 - 4.4 G/dL AO ADM SS Glucose [Mass/Vol] 153 mg/dL High 70 - 105 mg/dL AO ADM SS Hematocrit (Bld) [Volume fraction] 38.8 % Normal 34.0 - 46.0 % AO Workflow SS Hemoglobin (Bld) [Mass/Vol] 12.8 G/dL Normal 12.0 - 16.0 G/dL AO Workflow SS Insulin Qn 19.64 munit/L Normal 2.60 - 37.60 mU/L AH ADM SS Iron binding capacity [Mass/Vol] 368 mcg/dL Normal 250 - 450 mcg/dL AO ADM SS Lymphocytes (Bld) [#/Vol] 2.4 103/mcL Normal 0.9 - 4.3 10^3/mcL AO Workflow SS Lymphocytes/100 WBC (Bld) 20.5 % Normal 20.0 - 40.0 % AO Workflow SS MCH (RBC) [Entitic mass] 25.4 pg Low 27.0 - 33.0 pg AO Workflow SS MCHC 33.0 G/dL Normal 32.0 - 36.0 G/dL AO Workflow SS MCV (RBC) [Entitic vol] 77.2 fL Low 80.0 - 99.0 fL AO Workflow SS Monocytes (Bld) [#/Vol] 0.7 103/mcL Normal 0.1 - 1.4 10^3/mcL AO Workflow SS Monocytes/100 WBC (Bld) 5.6 % Normal 2.0 - 13.0 % AO Workflow SS Neutrophils (Bld) [#/Vol] 8.3 103/mcL High 2.3 - 8.1 10^3/mcL AO Workflow SS Neutrophils/100 WBC (Bld) 71.3 % Normal 50.0 - 75.0 % AO Workflow SS Platelet mean volume (Bld) [Entitic vol] 8.3 fL Normal 6.6 - 10.5 fL AO Workflow SS Platelets (Bld) [#/Vol] 313 103/mcL Normal 150 - 450 10^3/mcL AO Workflow SS Potassium [Moles/Vol] 4.2 mmol/L Normal 3.5 - 5.1 mmol/L AO ADM SS Protein [Mass/Vol] 7.8 G/dL Normal 6.4 - 8.2 G/dL AO ADM SS RBC (Bld) [#/Vol] 5.03 106/mcL Normal 4.10 - 5.30 10^6/mcL AO Workflow SS Sodium [Moles/Vol] 138 mmol/L Normal 136 - 145 mmol/L AO ADM SS TSH Qn 1.96 m[IU]/L Normal 0.36 - 3.74 mcIU/mL AO ADM SS Urea nitrogen [Mass/Vol] 12 mg/dL Normal 7 - 18 mg/dL AO ADM SS Urea nitrogen/Creatinine [Mass ratio] 17 ratio Normal 7 - 27 ratio AO ADM SS WBC (Bld) [#/Vol] 11.6 103/mcL High 4.5 - 10.8 10^3/mcL AO Workflow SS LABORATORYOrdered By: Vania Bourgeois on 07-17-2024 Cholesterol [Mass/Vol] 186 mg/dL Normal 0 - 200 mg/dL AO ADM SS Comment on above: Interpretive Data: C holesterol Reference Interval: Less than 200 Desirable 200-239 Borderline high risk 240 and above High risk Cholesterol in HDL [Mass/Vol] 39 mg/dL Low 40 - 60 mg/dL AO ADM SS Cholesterol in LDL [Mass/Vol] 132 mg/dL High 0 - 130 mg/dL AO ADM SS Triglyceride [Mass/Vol] 73 mg/dL Normal 0 - 150 mg/dL AO ADM SS Comment on above: Interpretive Data: T riglyceride Reference Interval: Less than 150 Normal 150-199 Borderline high risk 200-499 High risk 500 or higher Very high risk LIPIDon 07-17-2024 Cholesterol [Mass/Vol] 186 mg/dL Normal 0-200 [facility] Comment on above: Result Comment: Chol esterol Reference Interval: Less than 200 Desirable 200-239 Borderline high risk 240 and above High risk Performed By: #### N GPCR1, CTPCR #### [address] [address] Cholesterol in HDL [Mass/Vol] 39 mg/dL Low 40-60 [facility] Comment on above: Performed By: #### N GPCR1, CTPCR #### [address] [address] Cholesterol in LDL [Mass/Vol] 132 mg/dL High 0-130 [facility] Comment on above: Performed By: #### N GPCR1, CTPCR #### [place] [address] Triglyceride [Mass/Vol] 73 mg/dL Normal 0-150 [facility] Comment on above: Result Comment: Trig lyceride Reference Interval: Less than 150 Normal 150-199 Borderline high risk 200-499 High risk 500 or higher Very high risk Performed By: #### N GPCR1, CTPCR #### [place] [address] TSHon 07-17-2024 TSH Qn 1.96 m[IU]/L Normal 0.36-3.74 [facility] Comment on above: Performed By: #### N GPCR1, CTPCR #### [place] [address] VIDHon 07-17-2024 Vit. D 25-Hydroxy 28.5 ng/mL Normal [facility] Comment on above: Result Comment: Inte rpretive Values Based on Total 25(OH) Vitamin D: Deficient <20 ng/mL Insufficient 20 - <30 ng/mL Sufficient 30-100 ng/mL Performed By: #### N GPCR1, CTPCR #### [place] [address] MR/BMS.BPon 07-03-2024 MR/BMS.BP [address], [place] [address] OFFICE VISIT Date of Service: 07/03/24 MR#: [id number] Acct: [id number] Name: DORY HENDERSON Christina Rep #: [id number] : 1985 Provider: Dr. Sharad Dumont se, DO Age/Sex: 39/F Location: [facility] Status: Signed Intake Vital Signs 06/02/24 13:35 07/03/24 09:30 Height 5 ft 4 in 5 ft 4 in Weight: 270 lb 272 lb BMI 46.3 46.7 BP 158/82 H 172/92 H Blood Pressure Location Rt brachial Lt brachial Position Sitting Sitting Respiration 16 16 Pulse 82 74 Pulse Source Monitor Monitor Temp 96.6 F L Pulse Oximetry (%) 97 Oxygen Delivery Method room air BP Intake Visit Reasons: 4-6wfu Accompanied by: Self Allergies quetiapine fumarate (From Seroquel) Allergy (Verified 07/03/24 09:32) Other exenatide (From Ciarra Claudio) Adverse Reaction (Intermediate, Verified 07/03/24 09:32) Swelling Sulfa (Sulfonamide Antibiotics) Adverse Reaction (Verified 07/03/24 09:32) Diarrhea Medications ???Medication ???Instructions ???Recorded ???Confirmed ???Type blood sugar diagnostic (OneTouch #200 ea 05/31/23 07/03/24 Rx Verio test strips) pen needle, diabetic 32 gauge x #100 ea 07/12/23 07/03/24 Rx 32 (BD Ultra-Fine Ivet Pen Needle) arm brace (Wrist Brace) #2 ea 09/12/23 07/03/24 Rx amlodipine 5 mg tablet 5 mg PO QDAY 03/12/24 07/03/24 His tory clonazepam 0.5 mg tablet (Klonopin) 0.5 mg PO DAILY PRN anxiety #15 03/18/24 07/03/24 Rx tabs ondansetron 4 mg disintegrating 4 mg PO Q8H PRN PRN Nausea #10 tab s 04/15/24 07/03/24 Rx tablet metformin 1,000 mg tablet 1,000 mg PO BID #180 tabs 05/08/24 07/03/24 Rx pantoprazole 40 mg tablet,delayed 40 mg PO DAILY #30 tabs 05/13/24 07/03/24 Rx release hydrochlorothiazide 12.5 mg tablet 12.5 mg PO QAM #30 tabs 06/02/24 07/03/24 Rx buspirone 15 mg tablet 15 mg PO TID #90 tabs 06/04/2403/29 Rx loratadine 10 mg tablet (Claritin) 10 mg PO QDAY 07/03/24 07/03/24 History [facility] Medical History Concentration deficit induced hypertension, ESTHER (generalized anxiety disorder) History of depression Earache, left Wears glasses Depression Anxiety Alcohol use Diabetes Fatty liver Back pain Migraine headache Dietary restriction History of ulceration Gastric reflux Non-smoker Shortness of breath on exertion Hypertension Infestation by mites Contact dermatitis Carpal tunnel syndrome Acute otitis media, right Tonsillolith Allergic dermatitis GERD (gastroesophageal reflux disease) Diabetes type 2, controlled High blood pressure BPPV (benign paroxysmal positional vertigo) Pre-eclampsia, Surgical History History of hysteroscopy History of esophagogastroduodenoscopy (EGD) Family History Mother Arthritis Anxiety Fibromyalgia Depression Hypertension Grandfather Colon cancer Father Heart disease Hypertension Myocardial infarction Cancer lung/kidney Social History adopted: No household members: spouse and children current occupational status: disabled 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 Patient completed a WURS and had significant other complete in regards to her as well. Patient scored a 76 and significant other rated her a 33. She does feel as though she does not agree with some of his answers. Elaborates that she feels she is impulsive like spending money on a video game system despite needing the money for diapers and formula; or spending to excess on clothing. Feels like her mood is hot/short. Describes feel very fidgety when doing anything else like watching TV. Does frequently find that she has guilty feelings or feelings of regretfulness. Reports that her toddler has been sick with strep throat. Has been having difficulty with catching her breath since having surgery in April. Mood has been largely ok, but does have some anxiety regarding her children in general. Previously took wellbutrin and felt that it helped but then seemed to lose efficacy. Has not been sleeping very well. Only g (more content not included)... Normal [facility] Internal Medicine Office Vis car 06-01-2024 Internal Medicine Office Visit [facility] [address] [place] [address] [place], [place] [address] OFFICE VISIT Date of Service: 06/02/24 MR#: [id number] Acct: [id number] Name: DORY HENDERSON Rep #: [id number] : 1985 Provider: Dr. 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 Accompanied by: Self Is patient in pain?: No Allergies quetiapine fumarate (From Seroquel) Allergy (Verified 06/02/24 13:31) Other exenatide (From BydureOndeego BCise) Adverse Reaction (Intermediate, Verified 06/02/24 13:31) Swelling Sulfa (Sulfonamide Antibiotics) Adverse Reaction (Verified 06/02/24 13:31) Diarrhea Medications ???Medication ???Instructions ???Recorded ???Confirmed ???Type blood sugar diagnostic (OneTouch #200 ea 05/31/23 06/02/24 Rx Verio test strips) pen needle, diabetic 32 gauge x #100 ea 07/12/23 06/02/24 Rx 5/32 (BD Ultra-Fine Ivet Pen Needle) arm brace (Wrist Brace) #2 ea 09/12/23 06/02/24 Rx amlodipine 5 mg tablet 5 mg PO QDAY 03/12/24 06/02/24 His tory buspirone 15 mg tablet 15 mg PO TID #90 tabs 03/18/24 Rx clonazepam 0.5 mg tablet (Klonopin) 0.5 mg PO DAILY PRN anxiety #15 03/18/24 06/02/24 Rx tabs ondansetron 4 mg disintegrating 4 mg PO Q8H PRN PRN Nausea #10 tab s 04/15/24 06/02/24 Rx tablet metformin 1,000 mg tablet 1,000 mg PO BID #180 tabs 05/08/24 06/02/24 Rx pantoprazole 40 mg tablet,delayed 40 mg PO DAILY #30 tabs 05/13/24 06/02/24 Rx release hydrochlorothiazide 12.5 mg tablet 12.5 mg PO QAM #30 tabs 06/02/24 06/02/24 Rx prednisone 20 mg tablet 20 mg PO QDAY #5 tabs 06/02/24 Rx Have you fallen in the past year?: No Nurse's Note: blood pressure is even higher at home and having side effects daily [facility] Medical History Concentration deficit induced hypertension, ESTHER (generalized anxiety disorder) History of depression Earache, left Wears glasses Depression Anxiety Alcohol use Diabetes Fatty liver Back pain Migraine headache Dietary restriction History of ulceration Gastric reflux Non-smoker Shortness of breath on exertion Hypertension Infestation by mites Contact dermatitis Carpal tunnel syndrome Acute otitis media, right Tonsillolith Allergic dermatitis GERD (gastroesophageal reflux disease) Diabetes type 2, controlled High blood pressure BPPV (benign paroxysmal positional vertigo) Pre-eclampsia, Surgical History History of hysteroscopy History of esophagogastroduodenoscopy (EGD) Family History Mother Arthritis Anxiety Fibromyalgia Depression Hypertension Grandfather Colon cancer Father Heart disease Hypertension Myocardial infarction Cancer lung/kidney Social History adopted: No household members: spouse and children current occupational status: disabled 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 She has concerns about cough as well as her blood pressure. She reports that she has had a cough since April. She reports she and her family all had the flu around Renee's day. She reports her symptoms resolved, but at the end of April, she developed a sinus infection. She reports since then, she has been having a persistent cough, sore throat and shortness of breath. She reports when she first developed the cough, she was taking mucinex, but hasn't been taking it for over a week. She hasn't tried taking or doing anything else for her symptoms. She reports it just seems to be a dry cough that won't go away. She did a home COVID test, which was negative. She reports she had a subjective fever reporting she had chills/body aches about 10 (more content not included)... Normal [facility] MR/BMS.BPon 05-20-2024 MR/BMS.BP [address], [address] [place] [address] OFFICE VISIT Date of Service: 05/20/24 MR#: [id number] Acct: [id number] Name: DORY HENDERSON Rep #: [id number] : 1985 Provider: Dr. Sharad Dumont se, DO Age/Sex: 39/F Location: [facility] Status: Signed Intake Vital Signs 03/18/24 09:20 04/14/24 19:22 05/20/24 09:23 Height 5 ft 4 in 5 ft 4 in 5 ft 4 in Weight: 268 lb BMI 46.0 BP 137/98 H Blood Pressure Location Lt brachial Position Sitting Respiration 16 Pulse 101 H Pulse Source Monitor BP Intake Visit Reasons: 2-3Mfu Accompanied by: Self Allergies quetiapine fumarate (From Seroquel) Allergy (Verified 05/20/24 09:27) Other exenatide (From Bydureon BCise) Adverse Reaction (Intermediate, Verified 05/20/24 09:27) Swelling Sulfa (Sulfonamide Antibiotics) Adverse Reaction (Verified 05/20/24 09:27) Diarrhea Medications ???Medication ???Instructions ???Recorded ???Confirmed ???Type blood sugar diagnostic (OneTouch #200 ea 05/31/23 05/20/24 Rx Verio test strips) pen needle, diabetic 32 gauge x #100 ea 07/12/23 05/20/24 Rx 5/32 (BD Ultra-Fine Ivet Pen Needle) arm brace (Wrist Brace) #2 ea 09/12/23 05/20/24 Rx amlodipine 5 mg tablet 5 mg PO QDAY 03/12/24 05/20/24 His tory buspirone 15 mg tablet 15 mg PO TID #90 tabs 03/18/24 Rx clonazepam 0.5 mg tablet (Klonopin) 0.5 mg PO DAILY PRN anxiety #15 03/18/24 05/20/24 Rx tabs ondansetron 4 mg disintegrating 4 mg PO Q8H PRN PRN Nausea #10 tab s 04/15/24 05/20/24 Rx tablet metformin 1,000 mg tablet 1,000 mg PO BID #180 tabs 05/08/24 05/20/24 Rx pantoprazole 40 mg tablet,delayed 40 mg PO DAILY #30 tabs 05/13/24 05/20/24 Rx release PFSH Medical History (Updated 05/20/24 @ 14:[address] Sharad Santiago DO) Concentration deficit induced hypertension, ESTHER (generalized anxiety disorder) History of depression Earache, left Wears glasses Depression Anxiety Alcohol use Diabetes Fatty liver Back pain Migraine headache Dietary restriction History of ulceration Gastric reflux Non-smoker Shortness of breath on exertion Hypertension Infestation by mites Contact dermatitis Carpal tunnel syndrome Acute otitis media, right Tonsillolith Allergic dermatitis GERD (gastroesophageal reflux disease) Diabetes type 2, controlled High blood pressure BPPV (benign paroxysmal positional vertigo) Pre-eclampsia, Surgical History History of hysteroscopy History of esophagogastroduodenoscopy (EGD) Family History Mother Arthritis Anxiety Fibromyalgia Depression Hypertension Grandfather Colon cancer Father Heart disease Hypertension Myocardial infarction Cancer lung/kidney Social History adopted: No household members: spouse and children current occupational status: disabled 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 Patient reports that she has been not too bad for the most part. Does at times feel overwhelmed with all the responsibilities of her children simultaneously at times. Does at times get irritable in these situations. This has been happening much less than it had in the past. Daughter is 5.5 months now and sleeping through the night. has been on parental leave for 6 weeks because his company offered. Feels like buspar is working largely well at increased dose. Blood pressure has been somewhat better controlled today. Denies SI/HI or AVH. Has not been taking clonazepam very infrequently. Patient does voice some concern in regards to ADHD. Describes hyperfocusing on things like video games but then struggles in completion of task. Has stacks of things where she will put things to address later and they just grow. Feels like this has always been the case since childhood, but finds that they tend to get worse the more overwhelmed she is. Frequently avoids tasks where it may take sustained mental effort like dishes, laundry or cleaning. Has had home with her for 6 weeks and planned to clean the house and has done essentially nothing. Feels like she needs help from sig (more content not included)... Normal [facility] Final Surgical Pathology Rep [facility] 05-06-2024 Final Surgical Pathology Report . Pathology Reports Accession: Collected Date/Time: Received Date/Time: Pathologist: [id number] 05/01/2024 08:05 EST 05/02/2024 10:18 LORRAINE MATHEWS MD Final Surgical Pathology Report DIAGNOSIS: BILATERAL FALLOPIAN TUBES: - 2 UNREMARKABLE SEGMENTS OF FALLOPIAN TUBES CONFIRMED CLINICAL INFORMATION: ENCOUNTER FOR STERILIZATION Procedure: LAPAROSCOPIC BILATERAL SALPINGECTOMY ANG REMOVAL OF INTERUTERINE DEVICE Preoperative diagnosis: DESIRES STERILIZATION Postoperative diagnosis: DESIRES STERILIZATION SPECIMEN: A FALLOPIAN TUBES GROSS DESCRIPTION: All parts labelled with patient name and [id number] Received in formalin labelled bilateral tubes are 2 fimbriated non-designated fallopian tube segments the shorter segment measuring 4.5 cm in length, 0.5 cm in diameter and is inked black. The longer segment of fallopian tube measures 5 cm in length, 0.6 cm in diameter. RS-1 Dania Yi, Pathologists' Audit Machine Operator (ASCP) Performed by DANIA YI MICROSCOPIC DESCRIPTION: The microscopic examination is performed, except in the case of Gross Only. Verified by Pathology Report verified by [facility] LORRAINE ADIEL Sign out Date: 05/06/2024 10:44 Performing Lab: [facility], [address] [place] [address] Pathology Dept Disclaimer If ancillary studies were utilized, the following Laboratory Developed Test (LDT) disclaimer will apply: Under CLIA requirements, [facility]ology [facility] is qualified to perform high complexity testing. For all ancillary stains, positive and negative controls stain appropriately. Performance characteristics of immunohistochemical and chromogenic in-situ hybridization tests have been determined by [facility]. These tests are used for clinical purposes, They should not be regarded as investigational or for research. Normal [facility] ABO/Rh (Gel)on 05-01-2024 ABO/Rh Interp Negative Invalid Interpretation Code [facility] Comment on above: Performed By: #### C AU24, NAU24 #### [place] [address] #### [id number], TVOLCRE, UALDOS #### [address] [address] ABS (Gel)on 05-01-2024 ABSC Interp (Gel) Negative Normal [facility] Comment on above: Performed By: #### C AU24, NAU24 #### [place] [address] #### [id number], TVOLCRE, UALDOS #### [place] [id number] [place], [place] [address] LABORATORYOrdered By: Charla Mackay on 05-01-2024 Glucose [Mass/Vol] 113 mg/dL High 70 - 110 mg/dL [facility] Work Phone: LABORATORYOrdered By: Cynthia Tena on 05-01-2024 ABO and Rh group Nom (Bld) Blood group O Rh(D) negative Invalid Interpretation Code AO BB Auto SS Blood group antibody screen Ql Negative ABSC (05/01/24 6:15 AM) Normal AO BB Auto SS HCG ( test) Ql Negative (05/01/24 6:15 AM) Normal AO Manual Urine SS test (u) int Not detected Invalid Interpretation Code AO Manual Urine SS PREGUon 05-01-2024 HCG ( test) Ql (U) Negative Normal [facility] Comment on above: Performed By: #### 5 [id number] #### [address] [address] test (u) int Not detected Invalid Interpretation Code [facility] Comment on above: Performed By: #### 5 [id number] #### [address] [address] .Auto Diffon 04-22-2024 Basophil, Absolute 0.0 10 3/mcL Normal 0.0-0.2 [facility] Comment on above: Performed By: #### 5 [id number] #### [address] [address] Basophils/100 WBC (Bld) 0.2 % Normal 0.0-2.5 [facility] Comment on above: Performed By: #### 5 96534 #### [address] [address] Eosinophil, Absolute 0.2 10 3/mcL Normal 0.0-0.7 [facility] Comment on above: Performed By: #### 5 [id number] #### [address] [address] Eosinophils/100 WBC (Bld) 4.3 % Normal 0.0-7.0 [facility] Comment on above: Performed By: #### 5 01925 #### [address] [address] Lymphocyte, Absolute 1.8 10 3/mcL Normal 0.9-4.3 [facility] Comment on above: Performed By: #### 5 61020 #### [address] [address] Lymphocytes/100 WBC (Bld) 39.3 % Normal 20.0-40.0 [facility] Comment on above: Performed By: #### 5 02175 #### [address] [address] Monocyte, Absolute 0.4 10 3/mcL Normal 0.1-1.4 [facility] Comment on above: Performed By: #### 5 46523 #### [address] [address] Monocytes/100 WBC (Bld) 8.0 % Normal 2.0-13.0 [facility] Comment on above: Performed By: #### 5 33624 #### [address] [address] Neutrophils/100 WBC (Bld) 48.2 % Low 50.0-75.0 [facility] Comment on above: Performed By: #### 5 [id number] #### [address] [address] .NEUABSon 04-22-2024 Neutrophil, Absolute 2.2 10 3/mcL Low 2.3-8.1 [facility] Comment on above: Performed By: #### 5 72454 #### [place] [id number] [place], [place] [address] ABO/Rh (Gel)on 04-22-2024 ABO/Rh Interp Negative Invalid Interpretation Code [facility] Comment on above: Performed By: #### 5 90113 #### [address] [address] ABS (Gel)on 04-22-2024 ABSC Interp (Gel) Negative Normal [facility] Comment on above: Performed By: #### 5 50136 #### [address] [address] CBCon 04-22-2024 Erythrocyte distribution width (RBC) [Ratio] 16.2 % High 11.5-15.5 [facility] Comment on above: Order Comment: Pre-A dmission Testing Performed By: #### 5 09567 #### [address] [address] Hematocrit (Bld) [Volume fraction] 37.0 % Normal 34.0-46.0 [facility] Comment on above: Order Comment: Pre-A dmission Testing Performed By: #### 5 80061 #### [address] [address] Hgb 12.4 G/dL Normal 12.0-16.0 [facility] Comment on above: Order Comment: Pre-A dmission Testing Performed By: #### 5 21551 #### [address] [address] MCH (RBC) [Entitic mass] 24.8 pg Low 27.0-33.0 [facility] Comment on above: Order Comment: Pre-A dmission Testing Performed By: #### 5 10[address] #### [place] [address] MCHC 33.4 G/dL Normal 32.0-36.0 [facility] Comment on above: Order Comment: Pre-A dmission Testing Performed By: #### 5 360[address] #### [address] [address] MCV (RBC) [Entitic vol] 74.1 fL Low 80.0-99.0 [facility] Comment on above: Order Comment: Pre-A dmission Testing Performed By: #### 5 16898 #### [address] [address] Platelet 227 10 3/mcL Normal 150-450 [facility] Comment on above: Order Comment: Pre-A dmission Testing Performed By: #### 5 98044 #### [address] [address] Platelet mean volume (Bld) [Entitic vol] 8.1 fL Normal 6.6-10.5 [facility] Comment on above: Order Comment: Pre-A dmission Testing Performed By: #### 5 [id number] #### [address] [address] RBC 4.98 10 6/mcL Normal 4.10-5.30 [facility] Comment on above: Order Comment: Pre-A dmission Testing Performed By: #### 5 95130 #### [facility] [address] [place], [place] [address] WBC 4.6 10 3/mcL Normal 4.5-10.8 [facility] Comment on above: Order Comment: Pre-A dmission Testing Performed By: #### 5 02318 #### [place] [id number] [place], [place] [address] LABORATORYOrdered By: Silvia Daugherty on 04-22-2024 ABO and Rh group Nom (Bld) Blood group O Rh(D) negative Invalid Interpretation Code AO BB Auto SS Blood group antibody screen Ql Negative ABSC (04/22/24 9:38 AM) Normal AO BB Auto SS LABORATORYOrdered By: SYSTEM SYSTEM on 04-22-2024 Basophils (Bld) [#/Vol] 0.0 103/mcL Normal 0.0 - 0.2 10^3/mcL AO Workflow SS Basophils/100 WBC (Bld) 0.2 % Normal 0.0 - 2.5 % AO Workflow SS Eosinophil, Absolute 0.2 103/mcL Normal 0.0 - 0 .7 10^3/mcL AO Workflow SS Eosinophils/100 WBC (Bld) 4.3 % Normal 0.0 - 7.0 % AO Workflow SS Erythrocyte distribution width (RBC) [Ratio] 16.2 % High 11.5 - 15.5 % AO Workflow SS Hematocrit (Bld) [Volume fraction] 37.0 % Normal 34.0 - 46.0 % AO Workflow SS Hemoglobin (Bld) [Mass/Vol] 12.4 G/dL Normal 12.0 - 16.0 G/dL AO Workflow SS Lymphocytes (Bld) [#/Vol] 1.8 103/mcL Normal 0.9 - 4.3 10^3/mcL AO Workflow SS Lymphocytes/100 WBC (Bld) 39.3 % Normal 20.0 - 40.0 % AO Workflow SS MCH (RBC) [Entitic mass] 24.8 pg Low 27.0 - 33.0 pg AO Workflow SS MCHC 33.4 G/dL Normal 32.0 - 36.0 G/dL AO Workflow SS MCV (RBC) [Entitic vol] 74.1 fL Low 80.0 - 99.0 fL AO Workflow SS Monocytes (Bld) [#/Vol] 0.4 103/mcL Normal 0.1 - 1.4 10^3/mcL AO Workflow SS Monocytes/100 WBC (Bld) 8.0 % Normal 2.0 - 13.0 % AO Workflow SS Neutrophils (Bld) [#/Vol] 2.2 103/mcL Low 2.3 - 8.1 10^3/mcL AO Workflow SS Neutrophils/100 WBC (Bld) 48.2 % Low 50.0 - 75.0 % AO Workflow SS Platelet mean volume (Bld) [Entitic vol] 8.1 fL Normal 6.6 - 10.5 fL AO Workflow SS Platelets (Bld) [#/Vol] 227 103/mcL Normal 150 - 450 10^3/mcL AO Workflow SS RBC (Bld) [#/Vol] 4.98 106/mcL Normal 4.10 - 5.30 10^6/mcL AO Workflow SS WBC (Bld) [#/Vol] 4.6 103/mcL Normal 4.5 - 10.8 10^3/mcL AO Workflow SS Urgent Care Visit Reporton 0 04-17-2024 Urgent Care Visit Report [facility] [address], [address] [place] [address] OFFICE VISIT Date of Service: 04/17/24 MR#: [id number] Acct: [id number] Name: DORY HENDERSON Rep #: [id number] : 1985 Provider: NAHID Rogers Age/Sex: 39/F Location: [facility] Status: Signed Intake Vital Signs 04/14/24 19:22 04/17/24 16:13 Height 5 ft 4 in BP 140/62 H Blood Pressure Location Rt brachial Position Sitting Respiration 15 Pulse 9 L Pulse Source NIBP Temp 98.7 F Temp Source Oral Pulse Oximetry (%) 99 Oxygen Delivery Method room air Intake Visit Reasons: CONCERN FOR FLU A Chief Complaint: ST, 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 two kids at home with flu, concern for same. denies fever, DARDEN, BA PFSH Medical History induced hypertension, ESTHER (generalized anxiety disorder) History of depression Earache, left Wears glasses Depression Anxiety Alcohol use Diabetes Fatty liver Back pain Migraine headache Dietary restriction History of ulceration Gastric reflux Non-smoker Shortness of breath on exertion Hypertension Infestation by mites Contact dermatitis Carpal tunnel syndrome Acute otitis media, right Tonsillolith Allergic dermatitis GERD (gastroesophageal reflux disease) Diabetes type 2, controlled High blood pressure BPPV (benign paroxysmal positional vertigo) Pre-eclampsia, Surgical History History of hysteroscopy History of esophagogastroduodenoscopy (EGD) Family History Mother Arthritis Anxiety Fibromyalgia Depression Hypertension Grandfather Colon cancer Father Heart disease Hypertension Myocardial infarction Cancer lung/kidney Social History adopted: No household members: spouse and children current occupational status: disabled 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 Patient states that she has also had abdominal discomfort. She does state being to the ED 3 days ago and had a slew of tests all of which were nonconclusive. She denies fever, chills or sweats. No vomiting or diarrhea. No loss of taste or smell. No hemoptysis, shortness of breath or difficulty breathing. Patient states she mostly wants to make sure that she does not have influenza or COVID. No other associated symptoms or alleviating/aggravating factors. ROS Const Constitutional: No other (As above) Exam Const General: cooperative and well developed HENMT Head: normal to inspection and atraumatic Ears: hearing grossly normal bilaterally Nose: nasal discharge clear Face and sinus: normal facial exam Mouth: oral mucosae normal Throat: abnormal tonsil bilaterally hypertrophy 1+ Resp Effort Inspection: normal respiratory effort and no audible wheezes Auscultation: Bilateral: Clear to Auscultation Cardio Palpation: normal PMI Rate: regular rate Rhythm: regular rhythm Neuro General: patient alert and CN's II-XI intact bilaterally Psych Appearance: grossly normal Mental Status: mental status grossly normal Results POC SARS AG POC SARS AG Negative Last Edit by Juju Braga on 04/17/24 16:19 POC FLU A B Office Flu A B Negative FLU A B Last Edit by Juju Braga on 04/17/24 16:19 Coding Level of Care Code Off vis,new,level 3 Diagnoses Acute upper respiratory infection J06.9 Assessment and Plan Assessment and Plan (1) Acute upper respiratory infection: Status: Acute Orders: Orders POC FLU A B Today R05.9 - Cough, unspecified POC Rapid SARS Antigen Today Plan Patient darden (more content not included)... Normal [facility] 12 Lead EKGon 04-14-2024 12 Lead EKG [facility] Cardiovascular Services [address] [place] [address] 12 Lead EKG 04/14/24 1931 MR#: [id number] Acct: [id number] Name: DORY HENDERSON Rep #: [id number] : 1985 39 From: Dave Iverson MD Attending Dr: Status: DEP ER Ordering Dr: Chay Ag DO Date: 04/14/24 Location: ED Sex: F C Admitted: Test Reason : CP Blood Pressure : */* mmHG Vent. Rate : 76 BPM Atrial Rate : 76 BPM P-R Int : 160 ms QRS Dur : 90 ms QT Int : 426 ms P-R-T Axes : 33 41 56 degrees QTcB Int : 479 ms Normal sinus rhythm Normal ECG Confirmed by Dave Iverson ([id number]), web content editor LUCY SINGLETON ([id number]) on 04/15/2024 10:00:24 AM Referred By: RU Confirmed By: Dave Iverson 04/15/24 1000 Date Dave Iverson MD CC: Dr. Brooks Acosta MD; Dr. Chay Ag DO Signed Normal [facility] Abdomen/Pelvis W IV Cont ONL Yon 04-14-2024 Abdomen/Pelvis W IV Cont ONLY [facility] Imaging Services [address] [place] [address] Abdomen/Pelvis W IV Cont ONLY MR#: [id number] Acct: [id number] Name: DORY HENDERSON Rep #: [id number] : 1985 F 39 From: Dania Covington PCP: Dr. Brooks Acosta MD Status: REG ER Study: Abdomen/Pelvis W IV Cont ONLY Date of Exam: Exam# [id number] Ordering Dr: Chay Ag DO PROCEDURE: CT abdomen pelvis with IV contrast REASON FOR EXAM: Pain TECHNIQUE: Multiple contiguous axial images through the abdomen and pelvis were obtained after the administration of intravenous contrast. Two-dimensional coronal and sagittal reformatted images were reconstructed. Low-dose imaging technique was utilized. COMPARISON: None. FINDINGS: Lung bases are clear. Mild hepatic steatosis. Mild splenomegaly measuring up to 16 mm in AP dimension. Pancreas and adrenal glands are intact. Gallbladder is satisfactory. No significant biliary ductal dilation. Kidneys enhance symmetrically. No suspicious renal mass, calculi or hydronephrosis. Urinary bladder is intact. Uterus is present. IUD in place. Dominant left ovarian follicle. No bowel obstruction, focal bowel wall thickening or significant perienteric inflammation. Normal appendix. No pelvic free fluid. No free air. No abdominal aortic aneurysm more suspicious adenopathy. Superficial soft tissues are intact. No acute osseous abnormality. CT/Abdomen/Pelvis W IV Cont ONLY IMPRESSION: 1. No acute process. 2. Mild hepatic steatosis and splenomegaly. One or more dose reduction techniques were used (e.g., Automated exposure control, adjustment of the mA and/or kV according to patient size, use of iterative reconstruction technique). Reading Location: [facility] CC: Dr. Brooks Acosta MD; Dr. Chay Ag DO Mosaic Tiler: Signed Normal [facility] CBC W/Diff, Automatedon 04-05-2024 Absolute Lymph 2.24 X10 3/uL Normal 0.83-4.51 [facility] Comment on above: Performed By: #### L 501.5425, L501.2450, L700.6800, L500.4050, L100.0100 ####[facility] [address] [place], [address] Absolute Neut 12.7 X10 3/uL High 2.0-7.7 [facility] Comment on above: Performed By: #### L 501.5425, L501.2450, L700.6800, L500.4050, L100.0100 ####[facility] [address] [place], [address] Basophils/100 WBC (Bld) 0.2 % Normal 0-1 [facility] Comment on above: Performed By: #### L 501.5425, L501.2450, L700.6800, L500.4050, L100.0100 ####[facility] [address] [place], [address] Eosinophils/100 WBC (Bld) 0.9 % Normal 0-5 [facility] Comment on above: Performed By: #### L 501.5425, L501.2450, L700.6800, L500.4050, L100.0100 ####[facility] [address] [place], [address] Erythrocyte distribution width (RBC) [Ratio] 15.1 % High 11.6-14.6 [facility] Comment on above: Performed By: #### L 501.5425, L501.2450, L700.6800, L500.4050, L100.0100 ####[facility] [address] [place], [address] Hematocrit (Bld) [Volume fraction] 38.2 % Normal 37-47 [facility] Comment on above: Performed By: #### L 501.5425, L501.2450, L700.6800, L500.4050, L100.0100 ####[facility] [address] [place], [address] Hemoglobin (Bld) [Mass/Vol] 12.3 g/dL Normal 12.0-15.0 [facility] Comment on above: Performed By: #### L 501.5425, L501.2450, L700.6800, L500.4050, L100.0100 ####[facility] [address] [place], [address] IG% 0.500 Normal 0.0-0.9 [facility] Comment on above: Result Comment: IG% - Immature Granulocytes (promyelocytes, myelocytes and metamyelocytes) > 1% indicates that a LEFT SHIFT is Present. Performed By: #### L 501.5425, L501.2450, L700.6800, L500.4050, L100.0100 ####[facility] [address] [place], [address] Lymphocytes/100 WBC (Bld) 14.2 % Low 19-41 [facility] Comment on above: Performed By: #### L 501.5425, L501.2450, L700.6800, L500.4050, L100.0100 ####[facility] [address] [place], [address] MCH (RBC) [Entitic mass] 24.6 pg Low 27.0-32.0 [facility] Comment on above: Performed By: #### L 501.5425, L501.2450, L700.6800, L500.4050, L100.0100 ####[facility] [address] [place], [address] MCHC (RBC) [Mass/Vol] 32.2 g/dL Normal 32-36 [facility] Comment on above: Performed By: #### L 501.5425, L501.2450, L700.6800, L500.4050, L100.0100 ####[facility] [address] [place], [address] MCV (RBC) [Entitic vol] 76.2 fL Low 81-99 [facility] Comment on above: Performed By: #### L 501.5425, L501.2450, L700.6800, L500.4050, L100.0100 ####[facility] [address] [place], [address] Monocytes/100 WBC (Bld) 4.1 % Normal 0-10 [facility] Comment on above: Performed By: #### L 501.5425, L501.2450, L700.6800, L500.4050, L100.0100 ####[facility] [address] [place], [address] Neutrophils/100 WBC (Bld) 80.1 % High 47-70 [facility] Comment on above: Performed By: #### L 501.5425, L501.2450, L700.6800, L500.4050, L100.0100 ####[facility] [address] [place], [address] Nucleated RBC (Bld) [#/Vol] 0 10*3/uL Normal 0-5 [facility] Comment on above: Performed By: #### L 501.5425, L501.2450, L700.6800, L500.4050, L100.0100 ####[facility] [address] [place], [address] Platelet mean volume (Bld) [Entitic vol] 10.5 fL Normal 6.2-12.0 [facility] Comment on above: Performed By: #### L 501.5425, L501.2450, L700.6800, L500.4050, L100.0100 ####[facility] [address] [place], [address] Platelets (Bld) [#/Vol] 330 10*3/uL Normal 150-450 [facility] Comment on above: Performed By: #### L 501.5425, L501.2450, L700.6800, L500.4050, L100.0100 ####[facility] [address] [place], [address] RBC (Bld) [#/Vol] 5.01 10*6/uL Normal 4.2-5.4 [facility] Comment on above: Performed By: #### L 501.5425, L501.2450, L700.6800, L500.4050, L100.0100 ####[facility] [address] [place], [address] RDW SD 41.5 fl Normal 35.1-43.9 [facility] Comment on above: Performed By: #### L 501.5425, L501.2450, L700.6800, L500.4050, L100.0100 ####[facility] [address] [place], [address] WBC (Bld) [#/Vol] 15.8 10*3/uL High 4.4-11.0 [facility] Comment on above: Performed By: #### L 501.5425, L501.2450, L700.6800, L500.4050, L100.0100 ####[facility] [address] [place], [address] Chest 1 View (Portable)on Chest 1 View (Portable) [facility] Imaging Services [address] [place] [address] Chest 1 View (Portable) MR#: [id number] Acct: [id number] Name: DORY HENDERSON Rep #: [id number] : 1985 F 39 From: Brandin Dunlap DO PCP: Dr. Brooks Acosta MD Status: REG ER Study: Chest 1 View (Portable) Date of Exam: 04/14/24 Exam# [id number] Ordering Dr: Chay Ag DO PROCEDURE: CHEST 1 VIEW (PORTABLE) REASON FOR EXAM: Chest pain. Hypertension. TECHNIQUE: Frontal view of the chest. COMPARISON: None. FINDINGS: Cardiac size and pulmonary vasculature are within normal limits. No consolidation, pleural effusion, or pneumothorax is present. RAD/Chest 1 View (Portable) IMPRESSION: No acute cardiopulmonary process. [facility] CC: Dr. Brooks Acosta MD; Dr. Chay Ag DO Mosaic Tiler: Signed Normal [facility] Comprehensive Metabolic Prof ilon 04-14-2024 Albumin [Mass/Vol] 3.6 g/dL Normal 3.2-5.0 [facility] Comment on above: Performed By: #### L 501.5425, L501.2450, L700.6800, L500.4050, L100.0100 ####[facility] [address] [place], [address] Albumin/Globulin [Mass ratio] 0.9 {ratio} Normal 0.9-2.4 [facility] Comment on above: Performed By: #### L 501.5425, L501.2450, L700.6800, L500.4050, L100.0100 ####[facility] [address] [place], [address] ALK P 119 U/L High 45-117 [facility] Comment on above: Performed By: #### L 501.5425, L501.2450, L700.6800, L500.4050, L100.0100 ####[facility] [address] [place], [address] ALT [Catalytic activity/Vol] 45 U/L Normal 13-56 [facility] Comment on above: Performed By: #### L 501.5425, L501.2450, L700.6800, L500.4050, L100.0100 ####[facility] [address] [place], [address] AST [Catalytic activity/Vol] 20 U/L Normal 15-37 [facility] Comment on above: Performed By: #### L 501.5425, L501.2450, L700.6800, L500.4050, L100.0100 ####[facility] [address] [place], [address] Bilirubin [Mass/Vol] 0.30 mg/dL Normal 0.20-1.00 [facility] Comment on above: Result Comment: For patients on eltrombopag therapy, use of Dimension [place] TBIL is not recommended. Performed By: #### L 501.5425, L501.2450, L700.6800, L500.4050, L100.0100 ####[facility] [address] [place], [address] BUN/CRE 10.8 RATIO Normal 10-20 [facility] Comment on above: Performed By: #### L 501.5425, L501.2450, L700.6800, L500.4050, L100.0100 ####[facility] [address] [place], [address] CA,Total 9.1 mg/dL Normal 8.5-10.1 [facility] Comment on above: Performed By: #### L 501.5425, L501.2450, L700.6800, L500.4050, L100.0100 ####[facility] [address] [place], [address] Chloride [Moles/Vol] 105 mmol/L Normal 98-107 [facility] Comment on above: Performed By: #### L 501.5425, L501.2450, L700.6800, L500.4050, L100.0100 ####[facility] [address] [place], [address] CO2 [Moles/Vol] 24.0 mmol/L Normal 21.0-32.0 [facility] Comment on above: Performed By: #### L 501.5425, L501.2450, L700.6800, L500.4050, L100.0100 ####[facility] [address] [place], [address] Creatinine [Mass/Vol] 1.02 mg/dL Normal 0.55-1.02 [facility] Comment on above: Result Comment: The validity of the calculated GFR GFRAA in patients over 70 years has not been determined. Clinical correlation is essential. Performed By: #### L 501.5425, L501.2450, L700.6800, L500.4050, L100.0100 ####[facility] [address] [place], [address] ECRCL 99.02 ml/min Normal [facility] Comment on above: Performed By: #### L 501.5425, L501.2450, L700.6800, L500.4050, L100.0100 ####[facility] [address] [place], [address] EST GFR - AA 78 mL/min Normal >60 [facility] Comment on above: Result Comment: Afri can [place] GFR Calc Performed By: #### L 501.5425, L501.2450, L700.6800, L500.4050, L100.0100 ####[facility] [address] [place], [address] GAP 9 Normal 5-15 [facility] Comment on above: Performed By: #### L 501.5425, L501.2450, L700.6800, L500.4050, L100.0100 ####[facility] [address] [place], [address] GFR/1.73 sq M.predicted among non-blacks MDRD (S/P/Bld) [Vol rate/Area] 65 mL/min/{1.73_m2} Normal >60 [facility] Comment on above: Result Comment: Non- GFR Calc Performed By: #### L 501.5425, L501.2450, L700.6800, L500.4050, L100.0100 ####[facility] [address] [place], [address] Globulin (S) [Mass/Vol] 3.9 g/dL Normal 2.2-4.2 [facility] Comment on above: Performed By: #### L 501.5425, L501.2450, L700.6800, L500.4050, L100.0100 ####[facility] [address] [place], [address] Glucose [Mass/Vol] 177 mg/dL High 74-106 [facility] Comment on above: Result Comment: Fast ing Glucose result greater than or equal to 126 mg/dL suggests DIABETES MELLITUS per A.D.A. criteria. Performed By: #### L 501.5425, L501.2450, L700.6800, L500.4050, L100.0100 ####[facility] [address] [place], [address] Potassium [Moles/Vol] 3.8 mmol/L Normal 3.5-5.1 [facility] Comment on above: Performed By: #### L 501.5425, L501.2450, L700.6800, L500.4050, L100.0100 ####[facility] [address] [place], [address] Sodium [Moles/Vol] 138 mmol/L Normal 136-145 [facility] Comment on above: Performed By: #### L 501.5425, L501.2450, L700.6800, L500.4050, L100.0100 ####[facility] [address] [place], [address] T PROT 7.5 g/dL Normal 6.4-8.2 [facility] Comment on above: Performed By: #### L 501.5425, L501.2450, L700.6800, L500.4050, L100.0100 ####[facility] [address] [place], [address] Urea nitrogen [Mass/Vol] 11 mg/dL Normal 7-18 [facility] Comment on above: Performed By: #### L 501.5425, L501.2450, L700.6800, L500.4050, L100.0100 ####[facility] [address] [place], [address] Emergency Department Summary on 04-14-2024 Emergency Department Summary [facility] Medical Records Department [address] [place] [address] Emergency Department Summary 04/14/24 MR#: [id number] Acct: [id number] Name: DORY HENDERSON Rep #: [id number] : 1985 39 From: Chay Mulligan PCP: Dr. Brooks [place], MD Status:REG ER Location: ED HPI History of Present Illness Chief Complaint: Hypertension Informant: patient Narrative Narrative: Presenting with mid abdominal pain since this morning. Nausea without vomiting. 5 bowel movements today more solid becoming more loose nonbloody. No urinary symptoms. No abdominal surgeries. Last menstrual period a week ago. Intermittent dizzy lightheaded symptoms for 3 days. No cough. 1 in the waiting room had transient chest pain. She states this evening she took her blood pressure systolic 180 at home. She had a gynecology visit today for discussion for potential tubal ligation her blood pressure 140 over 90s. She is on amlodipine typical blood pressures 120s. She had preeclampsia previously therefore symptoms feeling warm and flushed but the high blood pressure for which she checked. Denies any significant alcohol history. Denies history of pancreatitis. [facility] Medical History induced hypertension, ESTHER (generalized anxiety disorder) History of depression Earache, left Wears glasses Depression Anxiety Alcohol use Diabetes Fatty liver Back pain Migraine headache Dietary restriction History of ulceration Gastric reflux Non-smoker Shortness of breath on exertion Hypertension Infestation by mites Contact dermatitis Carpal tunnel syndrome Acute otitis media, right Tonsillolith Allergic dermatitis GERD (gastroesophageal reflux disease) Diabetes type 2, controlled High blood pressure BPPV (benign paroxysmal positional vertigo) Pre-eclampsia, Home Medications ???Medication ???Instructions ???Recorded ???Last Taken ???Type blood sugar diagnostic (OneTouch #200 ea 05/31/23 Unknown Rx Verio test strips) leg brace (PEDRITO Ankle Brace) #1 ea 06/14/23 Unknown Rx pen needle, diabetic 32 gauge x #100 ea 07/12/23 Unknown Rx 5/32 (BD Ultra-Fine Ivet Pen Needle) arm brace (Wrist Brace) #2 ea 09/12/23 Unknown Rx metformin 1,000 mg tablet 1,000 mg PO BID #180 tabs 12/01/23 12/10/23 Rx pantoprazole 40 mg tablet,delayed 40 mg PO DAILY #30 tabs 02/18/24 Unknown Rx release amlodipine 5 mg tablet 5 mg PO QDAY 03/12/24 Unknown Hist ory buspirone 15 mg tablet 15 mg PO TID #90 tabs 03/18/24 Unk nown Rx clonazepam 0.5 mg tablet (Klonopin) 0.5 mg PO DAILY PRN anxiety #15 03/18/24 Unknown Rx tabs dicyclomine 10 mg capsule 20 mg (2 x 10 mg) PO TIDAC #20 01/27 Unknown Rx CAPSULES ondansetron 4 mg disintegrating 4 mg PO Q8H PRN PRN Nausea #10 tab s 04/15/24 Unknown Rx tablet sucralfate 1 gram tablet (Carafate) 1 g PO Q6H #60 tabs 04/15/24 Un known Rx Allergy/AdvReac Type Severity Reaction Status Date / Time quetiapine fumarate (From Allergy Other Verified 04/14/24 19:42 Seroquel) exenatide (From Bydureon AdvReac Intermediate Swelling Verified 04/14/24 19:42 BCise) Sulfa (Sulfonamide AdvReac Diarrhea Verified 04/14/24 19:42 Antibiotics) Family History Mother Arthritis Anxiety Fibromyalgia Depression Hypertension Grandfather Colon cancer Father Heart disease Hypertension Myocardial infarction Cancer lung/kidney Surgical History History of hysteroscopy History of esophagogastroduodenoscopy (EGD) Social History adopted: No household members: spouse and children current occupational status: disabled 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 pets and animals: Yes Smoking Status: Never smoker Electronic Cigarette Use: not used alcohol intake: current alcohol intake frequency: holidays/special occasions only substance use type: does not use caffeine: Yes (3) Type: carbonated beverages what type of physical activity do you participate in: walking frequency: daily seatbelt use: always do you feel safe at home: Yes ROS ROS ED Constitutional Constitutional ED: Denies chills, fever(s) or sweats ENT ENT ED: Denies sore throat Cardiovascular Cardiovascular: Reports chest pain and other Details: Lightheaded ; Denies leg edema, palpitations or racing heartbeat Respiratory/Chest Respiratory/Chest: Denies cough, dyspnea or dyspnea on exertion Gastrointestinal Gastrointestinal: Reports abdominal pain, diarrhea and nausea; Denies vomiting Genitourinary Genitourinary ED: Denies dysuria, hematuria or urinary frequency Musculoskeletal Musculoskeletal: Denies b (more content not included)... Normal [facility] L501.4020on 04-14-2024 TROPONIN-I HS 4 pg/mL Normal 3.0-54.0 [facility] Comment on above: Result Comment: Plea se Note: New Test Units and Gender Specific Reference Ranges. For more information see Policy Stat Procedure [place] High Sensitivity Troponin (TNIH) and attachments. Performed By: #### L 501.4020 ####[facility] [address] [place], [address] L501.5425on 04-14-2024 TROPONIN-I HS < 3 Low 3.0-54.0 [facility] Comment on above: Order Comment: 1Y Result Comment: Plea se Note: New Test Units and Gender Specific Reference Ranges. For more information see Policy Stat Procedure [place] High Sensitivity Troponin (TNIH) and attachments. Performed By: #### L 501.5425, L501.2450, L700.6800, L500.4050, L100.0100 ####[facility] [address] [place], [address] Lipaseon 04-14-2024 Lipase [Catalytic activity/Vol] 40 U/L Low 73-393 [facility] Comment on above: Performed By: #### L 501.5425, L501.2450, L700.6800, L500.4050, L100.0100 ####[facility] [address] [place], [address] ,Serum,hCG Quali.on 04-14-2024 HCG, SERUM QUAL Negative Normal [facility] Comment on above: Performed By: #### L 501.5425, L501.2450, L700.6800, L500.4050, L100.0100 ####[facility] [address] [place], [address] MR/on 03-18-2024 MR/BESSIE.BP [address], [address] [place] [address] OFFICE VISIT Date of Service: 03/18/24 MR#: [id number] Acct: [id number] Name: DORY HENDERSON Rep #: [id number] : 1985 Provider: Dr. Sharad Dumont se, DO Age/Sex: 39/F Location: [facility] [place] Status: Signed Intake Vital Signs 01/10/24 09:17 03/12/24 08:58 03/18/24 09:20 Height 5 ft 4 in 5 ft 4 in 5 ft 4 in Weight: 269 lb BMI 46.1 BP 128/66 H Blood Pressure Location Lt brachial Position Sitting Respiration 16 Pulse 96 Pulse Source Monitor Temp 97.6 F L Pulse Oximetry (%) 98 Oxygen Delivery Method room air BP Intake Visit Reasons: 2 M FU Allergies quetiapine fumarate (From Seroquel) Allergy (Verified 03/12/24 08:50) Other exenatide (From Bydureon BCise) Adverse Reaction (Intermediate, Verified 03/12/24 08:50) Swelling Sulfa (Sulfonamide Antibiotics) Adverse Reaction (Verified 03/12/24 08:50) Diarrhea [facility] Medical History (Updated 03/12/24 @ 11:[address] Brooks Acosta MD) induced hypertension, ESTHER (generalized anxiety disorder) History of depression Earache, left Wears glasses Depression Anxiety Alcohol use Diabetes Fatty liver Back pain Migraine headache Dietary restriction History of ulceration Gastric reflux Non-smoker Shortness of breath on exertion Hypertension Infestation by mites Contact dermatitis Carpal tunnel syndrome Acute otitis media, right Tonsillolith Allergic dermatitis GERD (gastroesophageal reflux disease) Diabetes type 2, controlled High blood pressure BPPV (benign paroxysmal positional vertigo) Pre-eclampsia, Surgical History History of hysteroscopy History of esophagogastroduodenoscopy (EGD) Family History Mother Arthritis Anxiety Fibromyalgia Depression Hypertension Grandfather Colon cancer Father Heart disease Hypertension Myocardial infarction Cancer lung/kidney Social History adopted: No household members: spouse and children current occupational status: disabled 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 Patient reports that she has been doing alright. Does continue to endorse some persistent anxiety. Denies any significant depressive symptoms. Could not tolerate Viibryd secondary to side effects. Has had some intermittent anxiety. Patient reports that Toni usually stresses her out so she is glad it is over. Has 4 children, with the youngest being 3 months old. Reports that her blood pressure has been largely normal. Physically has been feeling pretty good. Had strep throat back in February but fortunately the rest of the family did not. Sleep has been somewhat broken as he daughter has been waking up every 2 hours. Has been feeling somewhat sleep deprived because of this. Son is still awaiting testing for autism through [employer]. Has been unable to get in to therapy due to insurance concerns. Denies SI/HI or AVH. Review of Systems Constitutional Denies: fever(s), chills, change in weight or fatigue Eyes Denies: change in vision or blurry vision Ears, Nose, Mouth, Throat Denies: throat pain, neck pain or change in hearing Cardiovascular Denies: chest pain, palpitations or dyspnea Respiratory Denies: dyspnea, cough or wheezing Gastrointestinal Denies: abdominal pain, vomiting, diarrhea or constipation Genitourinary Denies: dysuria or urinary frequency Musculoskeletal Denies: back pain, neck pain, joint pain or muscle weakness Integumentary/Breast Denies: rash or new lesions Neurological Reports: headache(s); Denies: dizziness or confusion Endocrine Denies: fatigue or excessive sweating Hematologic/Lymphatic Denies: easy bruising or easy bleeding Allergic/Immunologic Denies: wheezing Exam Mental Status Exam - Psych Appearance casually dressed and no apparent distress Attitude cooperative and calm Activity/Motor Behavior MSE activity/motor behavior finding no adventitious movements Speech regular rate, regular volume and regular prosody Mood anxious Affect congruent Thought Process linear, logical and coherent (more content not included)... Normal [facility] Internal Medicine Office Vis iton 03-11-2024 Internal Medicine Office Visit [facility] [address] [place] [address] [place] [address] OFFICE VISIT Date of Service: 03/12/24 MR#: [id number] Acct: [id number] Name: DORY HENDERSON Rep #: [id number] : 1985 Provider: Dr. Brooks narayan MD Age/Sex: 39/F Location: [facility] [place] Status: Signed Intake Vital Signs 09/12/23 09:00 02/22/24 14:13 03/12/24 08:58 Height 5 ft 4 in 5 ft 4 in 5 ft 4 in Weight: 269 lb BMI 46.1 BP 128/66 H Blood Pressure Location Lt brachial Position Sitting Respiration 16 Pulse 96 Pulse Source Monitor Temp 97.6 F L Temp Source Temporal Pulse Oximetry (%) 98 Oxygen Delivery Method room air Intake Visit Reasons: 6 M FU Chief Complaint: 6m fu [employer] Manager Required: No Accompanied by: Self Is patient in pain?: No Allergies quetiapine fumarate (From Seroquel) Allergy (Verified 03/12/24 08:50) Other exenatide (From [employer]Med[employer] ReviewreOndeego [employer]) Adverse Reaction (Intermediate, Verified 03/12/24 08:50) Swelling Sulfa (Sulfonamide Antibiotics) Adverse Reaction (Verified 03/12/24 08:50) Diarrhea Medications ???Medication ???Instructions ???Recorded ???Confirmed ???Type blood sugar diagnostic (OneTouch #200 ea 05/31/23 03/12/24 Rx Verio test strips) leg brace (PEDRITO Ankle Brace) #1 ea 06/14/23 03/12/24 Rx miscellaneous medical supply 1 ea miscellaneous DAILY #1 ea 06/26/23 03/12/24 Rx pen needle, diabetic 32 gauge x #100 ea 07/12/23 03/12/24 Rx 5/32 (BD Ultra-Fine Ivet Pen Needle) arm brace (Wrist Brace) #2 ea 09/12/23 03/12/24 Rx metformin 1,000 mg tablet 1,000 mg PO BID #180 tabs 12/01/23 03/12/24 Rx insulin NPH isoph U-100 human 100 30 unit subcut QPM 12/11/23 03/12/24 History unit/mL (3 mL) subcutaneous pen (Humulin N NPH U-100 Insulin KwikPen) vilazodone 20 mg tablet 20 mg PO DAILY #30 tabs 01/10/24 03/12/24 Rx clonazepam 0.5 mg tablet (Klonopin) 0.5 mg PO DAILY PRN anxiety #15 01/14/24 03/12/24 Rx tabs buspirone 10 mg tablet 10 mg PO TID #90 tabs 02/18/24 03/12/24 Rx pantoprazole 40 mg tablet,delayed 40 mg PO DAILY #30 tabs 02/18/24 03/12/24 Rx release amlodipine 5 mg tablet 5 mg PO QDAY 03/12/24 03/12/24 History PFSH Medical History (Updated 03/12/24 @ 11:[address] Brooks Acosta MD) induced hypertension, ESTHER (generalized anxiety disorder) History of depression Earache, left Wears glasses Depression Anxiety Alcohol use Diabetes Fatty liver Back pain Migraine headache Dietary restriction History of ulceration Gastric reflux Non-smoker Shortness of breath on exertion Hypertension Infestation by mites Contact dermatitis Carpal tunnel syndrome Acute otitis media, right Tonsillolith Allergic dermatitis GERD (gastroesophageal reflux disease) Diabetes type 2, controlled High blood pressure BPPV (benign paroxysmal positional vertigo) Pre-eclampsia, Surgical History History of hysteroscopy History of esophagogastroduodenoscopy (EGD) Family History Mother Arthritis Anxiety Fibromyalgia Depression Hypertension Grandfather Colon cancer Father Heart disease Hypertension Myocardial infarction Cancer lung/kidney Social History adopted: No household members: spouse and children current occupational status: disabled 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 She is up to date on her routine blood work and is up to date on her screening. She would like her flu shot today. She doesn't smoke and does not need refills. She reports she is eating healthy for the most part and staying active. She has been checking her sugars have been well controlled. She hasn't been testing as much since she gave . They have been in the 130s. She doesn't think she had a low since giving . Her highest was 170, but she didn't eat well. She is no longer seeing endocrinology, but will be seeing a new provider in July at [place]. She is taking her medication as prescribed without problems. She does try to monitor her carbohydrate and sugar intake. She still hasn't scheduled her eye exam, but is hoping to get that done this year. She doesn't see podiatry. She does check her blo (more content not included)... Normal [facility] Manager Monitoring Cytology Reporton 2023 Manager Monitoring Cytology Report . Pathology Reports Accession: Collected Date/Time: Received Date/Time: Pathologist: [id number] 02/25/2024 09:53 EST 02/25/2024 18:00 EST Manager Monitoring Cytology Report SPECIMEN: Specimen Description: Liquid Prep w/ HPV Specimen: Cervical/Endocervical Screening or Diagnostic: Screening RELEVANT HISTORY: LMP: 02/25 IUD: YES SPECIMEN ADEQUACY: SATISFACTORY FOR EVALUATION Endocervical/Transformationa l zone component present INTERPRETATION/RESULTS: NEGATIVE FOR INTRAEPITHELIAL LESION OR MALIGNANCY HIGH RISK HPV TESTING: Event Code Result HPV Interp See Interp HPVN HPV Interp Text: High Risk HPV Typing: NEGATIVE HPV types 16, 18, 31, 33, 35, 39, 45, 51, 52, 56, 58, 59, 66 and 68 DNA were undetectable or below the pre-set threshold. The daiana High-Risk HPV DNA Test is not intended for use as a screening device for Pap normal women under age 30 and is not intended to substitute for regular Pap screening. The daiana High-Risk HPV DNA Test is designed to augment existing methods for the detection of cervical disease and should be used in conjunction with clinical information derived from other diagnostic and screening tests, physical examinations and full medical history in accordance with appropriate patient management procedures. NOTE: A negative result does not preclude the presence of HPV infection because results depend on adequate specimen collection, absence of inhibitors and sufficient DNA to be detected. As of: 03/03/24 10:03 EST COMMENT: This Pap Test was successfully processed and evaluated with the assistance of the [employer] ThinPrep Test Imaging System. Pathology Reports Accession: Collected Date/Time: Received Date/Time: Pathologist: [id number] 02/25/2024 09:53 EST 02/25/2024 18:00 EST Electronically Signed by Pathology report verified by [facility] Screened by: LAF Electronically signed by Leticia Romero Sign-Out Date: 03/03/2024 10:05 Performing Lab: [facility], [address] [place] [address] Pathology Dept Disclaimer The Pap test is a screening test for cervical cancer. As evidenced by published data, it is subject to both inherent false negative and false positive results. Your patient's results should be interpreted in context with pertinent clinical history including gynecological examination. Normal [facility] HPVon 02-28-2024 HPV Interp Normal See Interp HPVN [facility] Comment on above: Order Comment: Order placed by AP_HPV_ORDER rule from [id number] Result Comment: High Risk HPV Typing: NEGATIVE HPV types 16, 18, 31, 33, 35, 39, 45, 51, 52, 56, 58, 59, 66 and 68 DNA were undetectable or below the pre-set threshold. The daiana High-Risk HPV DNA Test is not intended for use as a screening device for Pap normal women under age 30 and is not intended to substitute for regular Pap screening. The daiana High-Risk HPV DNA Test is designed to augment existing methods for the detection of cervical disease and should be used in conjunction with clinical information derived from other diagnostic and screening tests, physical examinations and full medical history in accordance with appropriate patient management procedures. NOTE: A negative result does not preclude the presence of HPV infection because results depend on adequate specimen collection, absence of inhibitors and sufficient DNA to be detected. See Interp HPVN Performed By: #### [id number] #### [facility] [address] [place], [place] [address] HPV Source Cervix Normal [facility] Comment on above: Order Comment: Order placed by AP_HPV_ORDER rule from [id number] Performed By: #### [id number] #### [facility] [address] [place], [place] [address] LABORATORYOrdered By: Masood Garcia on 02-25-2024 HPV Interp High Risk HPV Typing : NEGATIVEHPV types 16, 18, 31, 33, 35, 39, 45, 51, 52, 56, 58, 59, 66 and 68 DNA wereundetectable or below the pre-set threshold.The daiana High-Risk HPV DNA Test is not intended for use as a screening device forPap normal women under age 30 and is not intended to substitute for regular Papscreening.The daiana High-Risk HPV DNA Test is designed to augment existing methods for thedetection of cervical disease and should be used in conjunction with clinicalinformation derived from other diagnostic and screening tests, physical examinationsand full medical history in accordance with appropriate patient managementprocedures.NOTE: A negative result does not preclude the presence of HPV infection because resultsdepend on adequate specimen collection, absence of inhibitors and sufficientDNA to be detected. Normal See Interp HPVN Auto Viro/Sero SS Specimen source Nom (Unsp spec) Cervix (02/25/24 9:53 AM) Normal Auto Viro/Sero SS Urgent Care Visit Reporton 1 04-24-2023 Urgent Care Visit Report [facility] [address], [address] [place] [address] OFFICE VISIT Date of Service: 02/22/24 MR#: [id number] Acct: [id number] Name: DORY HENDERSON Christina Rep #: [id number] : 1985 Provider: NAHID Rogers Age/Sex: 39/F Location: [facility] [place] Status: Signed Intake Vital Signs 01/10/24 09:17 02/22/24 14:13 Height 5 ft 4 in 5 ft 4 in Weight: 235 lb BMI 40.3 BP 122/84 H Position Sitting Pulse 113 H Temp 98.3 F Temp Source Oral Pulse Oximetry (%) 98 Oxygen Delivery Method room air Intake Visit Reasons: SORE THROAT, EAR PAIN Chief Complaint: congestion, left ear/face pain, grn mucus Allergies quetiapine fumarate (From Seroquel) Allergy (Verified 02/22/24 14:20) Other exenatide (From BydureOndeego BCise) Adverse Reaction (Intermediate, Verified 02/22/24 14:20) Swelling Sulfa (Sulfonamide Antibiotics) Adverse Reaction (Verified 02/22/24 14:20) Diarrhea Medications ???Medication ???Instructions ???Recorded ???Confirmed ???Type blood sugar diagnostic (OneTouch #200 ea 05/31/23 02/22/24 Rx Verio test strips) leg brace (PEDRITO Ankle Brace) #1 ea 06/14/23 02/22/24 Rx miscellaneous medical supply 1 ea miscellaneous DAILY #1 ea 06/26/23 02/22/24 Rx pen needle, diabetic 32 gauge x #100 ea 07/12/23 02/22/24 Rx 5/32 (BD Ultra-Fine Ivet Pen Needle) arm brace (Wrist Brace) #2 ea 09/12/23 02/22/24 Rx insulin lispro 100 unit/mL See Rx Instructions subcut TID #39 09/14/23 02/22/24 Rx subcutaneous pen (Humalog KwikPen mL (U-100) Insulin) metformin 1,000 mg tablet 1,000 mg PO BID #180 tabs 12/01/23 02/22/24 Rx insulin NPH isoph U-100 human 100 30 unit subcut QPM 12/11/23 02/22/24 History unit/mL (3 mL) subcutaneous pen (Humulin N NPH U-100 Insulin KwikPen) labetalol 100 mg tablet 50 mg (1/2 x 100 mg) PO BID 14 12/13/23 02/22/24 Rx days #14 tabs nifedipine 60 mg tablet,extended 60 mg PO DAILY@2200 28 days #28 12/13/23 02/22/24 Rx release 24 hr tabs vilazodone 20 mg tablet 20 mg PO DAILY #30 tabs 01/10/24 02/22/24 Rx clonazepam 0.5 mg tablet (Klonopin) 0.5 mg PO DAILY PRN anxiety #15 01/14/24 02/22/24 Rx tabs buspirone 10 mg tablet 10 mg PO TID #90 tabs 02/18/24 02/22/24 Rx pantoprazole 40 mg tablet,delayed 40 mg PO DAILY #30 tabs 02/18/24 02/22/24 Rx release amoxicillin 500 mg capsule 500 mg PO BID 10 days #20 caps 02/22/24 02/22/24 Rx Nurse's Note: Patient has a ST,Raghav Ear pain and fever. Patient states this has been going on for 3 days. Patient states her glands are swollen in her neck. Patient took a at Home covid test and flu test and they are negative. [facility] Medical History (Updated 02/22/24 @ 15:59 by Florentino WHITFIELD, NAHID) ESTHER (generalized anxiety disorder) History of depression Earache, left Wears glasses Depression Anxiety Alcohol use Diabetes Fatty liver Back pain Migraine headache Dietary restriction History of ulceration Gastric reflux Non-smoker Shortness of breath on exertion Hypertension Infestation by mites Contact dermatitis Carpal tunnel syndrome Acute otitis media, right Tonsillolith Allergic dermatitis GERD (gastroesophageal reflux disease) Diabetes type 2, controlled High blood pressure BPPV (benign paroxysmal positional vertigo) Pre-eclampsia, Surgical History History of hysteroscopy History of esophagogastroduodenoscopy (EGD) Family History Mother Arthritis Anxiety Fibromyalgia Depression Hypertension Grandfather Colon cancer Father Heart disease Hypertension Myocardial infarction Cancer lung/kidney Social History adopted: No household members: spouse and children current occupational status: disabled 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 Patient states this has been ongoing for the past 3 days. She does also state having a fever however is not aware of her Tmax. She denies hemoptysis, shortness of breath or difficulty breathing. No loss of taste or smell. No other associated symptoms or alleviating/aggravating factors. ROS Const Constitution (more content not included)... Normal [facility] CTPCRon 01-29-2024 C. trachomatis Interp Normal See CT Interp N [facility] Comment on above: Result Comment: C. t rachomatis DNA not detected. Specimen is presumptive negative for C. trachomatis. A negative result does not preclude C. trachomatis infection because results depend on adequate specimen collection, absence of inhibitors, and sufficient DNA to be detected. See CT Interp N Performed By: #### N GPCR1, CTPCR #### [place] [address] C.trachomatis PCR Negative Normal Negative [facility] Comment on above: Result Comment: Mole cular (PCR) assay performed on the [employer] Daiana 4800 system. Performed By: #### N GPCR1, CTPCR #### [place] [address] Chlam Source Cervix Normal [facility] Comment on above: Performed By: #### N GPCR1, CTPCR #### [address] [address] [id number] 01-29-2024 GC PCR Source Cervix Normal [facility] Comment on above: Performed By: #### N GPCR1, CTPCR #### [place] [address] N. gonorrhoeae (PCR) Negative Normal Negative [facility] Comment on above: Result Comment: Mole cular (PCR) assay performed on the [employer] Da[employer] 4800 System. Performed By: #### N GPCR1, CTPCR #### [place] [address] N. gonorrhoeae Interp Normal See NG Interp N [facility] Comment on above: Result Comment: N. g onorrhoeae DNA not detected. Specimen is presumptive negative for N. gonorrhoeae. A negative result does not preclude Neisseria gonorrhoeae infection because results depend on adequate specimen collection, absence of inhibitors, and sufficient DNA to be detected. See NG Interp N Performed By: #### N GPCR1, CTPCR #### [place] [address] LABORATORYOrdered By: Daisha Polanco on 01-28-2024 C. trachomatis DNA EVIN+probe Ql (Unsp spec) Negative 2 (01/28/24 4:05 PM) Normal Negative Auto Viro/Sero SS Comment on above: Interpretive Data: M olecular (PCR) assay performed on the [employer] 4800 system. C. trachomatis DNA EVIN+probe Ql (Unsp spec) C. trachomatis DNA not detected. Specimen is presumptive negative forC. trachomatis.A negative result does not preclude C. trachomatis infection becauseresults depend on adequate specimen collection, absence of inhibitors,and sufficient DNA to be detected. Normal See CT Interp N Auto Viro/Sero SS N. gonorrhoeae DNA EVIN+probe Ql (Unsp spec) Negative 1 (01/28/24 4:05 PM) Normal Negative Auto Viro/Sero SS Comment on above: Interpretive Data: M olecular (PCR) assay performed on the [employer] 4800 System. N. gonorrhoeae DNA EVIN+probe Ql (Unsp spec) N. gonorrhoeae DNA not detected. Specimen is presumptive negative forN. gonorrhoeae. A negative result does not preclude Neisseria gonorrhoeaeinfection because results depend on adequate specimen collection, absenceof inhibitors, and sufficient DNA to be detected. Normal See NG Interp N Auto Viro/Sero SS Laboratory - Specimen inform ationOrdered By: Daisha Polanco on 01-28-2024 Specimen source Nom (Unsp spec) Cervix (01/28/24 4:05 PM) Normal Auto Viro/Sero SS LABORATORYOrdered By: Beth Swanson on 12-08-2023 Glucose [Mass/Vol] 94 mg/dL Normal 70 - 110 mg/dL [facility] Work Phone: Glucose [Mass/Vol] 124 mg/dL High 70 - 110 mg/dL [facility] Work Phone: .Auto Diffon 12-07-2023 Basophil, Absolute 0.0 10 3/mcL Normal 0.0-0.3 [facility] Comment on above: Performed By: #### C BC, CMP, ADIFF, ANEU, LD, GFR ####[address] [address] Basophils/100 WBC (Bld) 0.2 % Normal 0.0-2.5 [facility] Comment on above: Performed By: #### C BC, CMP, ADIFF, ANEU, LD, GFR ####[address] [address] Eosinophil, Absolute 0.1 10 3/mcL Normal 0.0-0.7 [facility] Comment on above: Performed By: #### C BC, CMP, ADIFF, ANEU, LD, GFR ####[address] [address] Eosinophils/100 WBC (Bld) 0.5 % Normal 0.0-6.0 [facility] Comment on above: Performed By: #### C BC, CMP, ADIFF, ANEU, LD, GFR ####[address] [address] Lymphocyte, Absolute 2.4 10 3/mcL Normal 0.9-4.3 [facility] Comment on above: Performed By: #### C BC, CMP, ADIFF, ANEU, LD, GFR ####[address] [address] Lymphocytes/100 WBC (Bld) 14.4 % Low 20.0-40.0 [facility] Comment on above: Performed By: #### C BC, CMP, ADIFF, ANEU, LD, GFR ####[address] [address] Monocyte, Absolute 0.9 10 3/mcL Normal 0.1-1.4 [facility] Comment on above: Performed By: #### C BC, CMP, ADIFF, ANEU, LD, GFR ####[address] [address] Monocytes/100 WBC (Bld) 5.5 % Normal 2.0-13.0 [facility] Comment on above: Performed By: #### C BC, CMP, ADIFF, ANEU, LD, GFR ####[place] [id number] [place] [address] Neutrophils/100 WBC (Bld) 79.4 % High 50.0-75.0 [facility] Comment on above: Performed By: #### C BC, CMP, ADIFF, ANEU, LD, GFR ####[place] [address] [place] [address] .GFRon 12-07-2023 GFR >60 [facility] Comment on above: Result Comment: GFR Population mean for , Non- Americans Ages 20-29 = 116 mL/min/1.73 sq.m. Ages 30-39 = 107 mL/min/1.73 sq.m. Ages 40-49 = 99 mL/min/1.73 sq.m. Ages 50-59 = 93 mL/min/1.73 sq.m. Ages 60-69 = 85 mL/min/1.73 sq.m. Ages 70+ = 75 mL/min/1.73 sq.m. Chronic Kidney Disease: Less than 60 mL/min/1.73 square meters End Stage Renal Disease: Less than 15 mL/min/1.73 square meters Performed By: #### C BC, CMP, ADIFF, ANEU, LD, GFR ####[address] [address] GFR Non- >60 [facility] MAIN Comment on above: Result Comment: GFR Population mean for , Non- Americans Ages 20-29 = 116 mL/min/1.73 sq.m. Ages 30-39 = 107 mL/min/1.73 sq.m. Ages 40-49 = 99 mL/min/1.73 sq.m. Ages 50-59 = 93 mL/min/1.73 sq.m. Ages 60-69 = 85 mL/min/1.73 sq.m. Ages 70+ = 75 mL/min/1.73 sq.m. Chronic Kidney Disease: Less than 60 mL/min/1.73 square meters End Stage Renal Disease: Less than 15 mL/min/1.73 square meters Performed By: #### C BC, CMP, ADIFF, ANEU, LD, GFR ####[place] [address] .NEUABSon 12-07-2023 Neutrophil, Absolute 13.2 10 3/mcL High 2.3-8.1 [facility] MAIN Comment on above: Performed By: #### C BC, CMP, ADIFF, ANEU, LD, GFR ####[place] [address] CBCon 12-07-2023 Erythrocyte distribution width (RBC) [Ratio] 14.8 % Normal 11.5-15.5 [facility] MAIN Comment on above: Performed By: #### C BC, CMP, ADIFF, ANEU, LD, GFR ####[place] [address] Hematocrit (Bld) [Volume fraction] 29.8 % Low 34.0-46.0 [facility] MAIN Comment on above: Performed By: #### C BC, CMP, ADIFF, ANEU, LD, GFR ####[place] [address] Hgb 9.9 G/dL Low 12.0-16.0 [facility] MAIN Comment on above: Performed By: #### C BC, CMP, ADIFF, ANEU, LD, GFR ####[place] [address] MCH (RBC) [Entitic mass] 26.5 pg Low 27.0-33.0 [facility] MAIN Comment on above: Performed By: #### C BC, CMP, ADIFF, ANEU, LD, GFR ####[place] [address] MCHC 33.2 G/dL Normal 32.0-36.0 [facility] MAIN Comment on above: Performed By: #### C BC, CMP, ADIFF, ANEU, LD, GFR ####[place] [address] MCV (RBC) [Entitic vol] 79.7 fL Low 80.0-99.0 [facility] MAIN Comment on above: Performed By: #### C BC, CMP, ADIFF, ANEU, LD, GFR ####[address] [address] Platelet 203 10 3/mcL Normal 150-450 [facility] MAIN Comment on above: Performed By: #### C BC, CMP, ADIFF, ANEU, LD, GFR ####[address] [address] Platelet mean volume (Bld) [Entitic vol] 8.4 fL Normal 6.6-10.5 [facility] MAIN Comment on above: Performed By: #### C BC, CMP, ADIFF, ANEU, LD, GFR ####[place] [address] RBC 3.73 10 6/mcL Low 4.10-5.30 [facility] MAIN Comment on above: Performed By: #### C BC, CMP, ADIFF, ANEU, LD, GFR ####[place] [address] WBC 16.7 10 3/mcL High 4.5-10.8 [facility] MAIN Comment on above: Performed By: #### C BC, CMP, ADIFF, ANEU, LD, GFR ####[place] [address] CMPon 12-07-2023 Albumin Level 2.1 G/dL Low 3.2-4.8 [facility] MAIN Comment on above: Performed By: #### C BC, CMP, ADIFF, ANEU, LD, GFR ####[place] [address] Albumin/Globulin [Mass ratio] 0.7 {ratio} Low 0.9-1.6 [facility] MAIN Comment on above: Performed By: #### C BC, CMP, ADIFF, ANEU, LD, GFR ####[address] [address] ALP [Catalytic activity/Vol] 141 U/L High 38-126 [facility] MAIN Comment on above: Performed By: #### C BC, CMP, ADIFF, ANEU, LD, GFR ####[place] [id number] ALT [Catalytic activity/Vol] 14 U/L Normal 10-49 [facility] MAIN Comment on above: Performed By: #### C BC, CMP, ADIFF, ANEU, LD, GFR ####[address] [address] AST [Catalytic activity/Vol] 23 U/L Normal 8-34 [facility] MAIN Comment on above: Performed By: #### C BC, CMP, ADIFF, ANEU, LD, GFR ####[address] [address] Bili Total 0.50 mg/dL Normal 0.20-1.20 [facility] MAIN Comment on above: Result Comment: Use of this assay is not recommended for patients undergoing treatment with eltrombopag due to the potential for falsely elevated results. Performed By: #### C BC, CMP, ADIFF, ANEU, LD, GFR ####[address] [address] BUN/Creatinine Ratio 16.7 ratio Normal 10.0-22.0 [facility] MAIN Comment on above: Performed By: #### C BC, CMP, ADIFF, ANEU, LD, GFR ####[address] [address] Calcium [Mass/Vol] 8.6 mg/dL Low 8.7-10.4 [facility] MAIN Comment on above: Performed By: #### C BC, CMP, ADIFF, ANEU, LD, GFR ####[address] [address] Chloride [Moles/Vol] 108 mmol/L Normal 98-110 [facility] MAIN Comment on above: Performed By: #### C BC, CMP, ADIFF, ANEU, LD, GFR ####[address] [address] CO2 [Moles/Vol] 25 mmol/L Normal 22-32 [facility] MAIN Comment on above: Performed By: #### C BC, CMP, ADIFF, ANEU, LD, GFR ####[address] [address] Creatinine [Mass/Vol] 0.54 mg/dL Normal 0.50-1.20 [facility] MAIN Comment on above: Result Comment: Test ing performed on [employer] CH analyzer using enzymatic creatinine methodology. Performed By: #### C BC, CMP, ADIFF, ANEU, LD, GFR ####[address] [address] Electrolyte Balance 5.0 mEq/L Normal 4.0-15.0 [facility] MAIN Comment on above: Performed By: #### C BC, CMP, ADIFF, ANEU, LD, GFR ####[address] [address] Globulin 3.0 G/dL Normal 1.5-3.8 [facility] MAIN Comment on above: Performed By: #### C BC, CMP, ADIFF, ANEU, LD, GFR ####[place] [id number] Glucose [Mass/Vol] 90 mg/dL Normal 70-110 [facility] MAIN Comment on above: Performed By: #### C BC, CMP, ADIFF, ANEU, LD, GFR ####[place] [address] Potassium [Moles/Vol] 4.0 mmol/L Normal 3.5-5.0 [facility] MAIN Comment on above: Performed By: #### C BC, CMP, ADIFF, ANEU, LD, GFR ####[place] [id number] Sodium [Moles/Vol] 138 mmol/L Normal 136-145 [facility] MAIN Comment on above: Performed By: #### C BC, CMP, ADIFF, ANEU, LD, GFR ####[place] [address] Total Protein 5.1 G/dL Low 5.7-8.2 [facility] MAIN Comment on above: Result Comment: No te - New Reference Range in effect 19 Performed By: #### C BC, CMP, ADIFF, ANEU, LD, GFR ####[place] [id number] Urea nitrogen [Mass/Vol] 9.0 mg/dL Normal 8.0-22.0 [facility] MAIN Comment on above: Performed By: #### C BC, CMP, ADIFF, ANEU, LD, GFR ####[facility] [place] [address] FMHon 12-07-2023 Mat. Hemorrhage Negative Normal [facility] MAIN Comment on above: Performed By: #### F #### [facility] [address] [place] [id number] LABORATORYOrdered By: Beth Swanson on 12-07-2023 Glucose [Mass/Vol] 89 mg/dL Normal 70 - 110 mg/dL [facility] Work Phone: LABORATORYOrdered By: Vania Edwards on 12-07-2023 Blood Glucose Testing Reason Routine (12/07/23 5:34 PM) [facility] Work Phone: Blood Glucose Testing Reason Routine (12/07/23 12:16 PM) [facility] Work Phone: Blood Glucose Testing Reason Routine (12/07/23 8:46 AM) [facility] Work Phone: LABORATORYOrdered By: Christina Marin on 12-07-2023 cell screen Yamileth test Ql (Bld) Negative (12/07/23 7:40 AM) Normal AH BB Manual SS LABORATORYOrdered By: SYSTEM SYSTEM on 12-07-2023 Albumin BCP dye [Mass/Vol] 2.1 G/dL Low 3.2 - 4.8 G/dL ADM SS Albumin/Globulin [Mass ratio] 0.7 {ratio} Low 0.9 - 1.6 ratio AH ADM SS ALP [Catalytic activity/Vol] 141 U/L High 38 - 126 U/L ADM SS ALT No additional P-5'-P [Catalytic activity/Vol] 14 U/L Normal 10 - 49 U/L AH ADM SS AST [Catalytic activity/Vol] 23 U/L Normal 8 - 34 U/L AH ADM SS Basophils (Bld) [#/Vol] 0.0 103/mcL Normal 0.0 - 0.3 10^3/mcL AH Workflow SS Basophils/100 WBC (Bld) 0.2 % Normal 0.0 - 2.5 % Workflow SS Bilirubin [Mass/Vol] 0.50 mg/dL Normal 0.20 - 1.20 mg/dL AH ADM SS Comment on above: Interpretive Data: U se of this assay is not recommended for patients undergoing treatment with eltrombopag due to the potential for falsely elevated results. Calcium [Mass/Vol] 8.6 mg/dL Low 8.7 - 10. 4 mg/dL ADM SS Chloride [Moles/Vol] 108 mmol/L Normal 98 - 11 0 mEq/L ADM SS CO2 [Moles/Vol] 25 mmol/L Normal 22 - 32 mEq/L ADM SS Creatinine [Mass/Vol] 0.54 mg/dL Normal 0.50 - 1.20 mg/dL ADM Comment on above: Interpretive Data: T esting performed on [employer] analyzer using enzymatic creatinine methodology. Electrolyte Balance 5.0 mEq/L Normal 4.0 - 15 .0 mEq/L ADM SS Eosinophils (Bld) [#/Vol] 0.1 103/mcL Normal 0.0 - 0.7 10^3/mcL Workflow SS Eosinophils/100 WBC (Bld) 0.5 % Normal 0.0 - 6.0 % Workflow SS Erythrocyte distribution width (RBC) [Ratio] 14.8 % Normal 11.5 - 15.5 % Workflow SS GFR/1.73 sq M.predicted among blacks MDRD (S/P/Bld) [Vol rate/Area] ml/min/1.73sqm Invalid Interpretation Code [employer] S Comment on above: Interpretive Data: GFR Population mean for , Non- Americans Ages 20-29 = 116 mL/min/1.73 sq.m. Ages 30-39 = 107 mL/min/1.73 sq.m. Ages 40-49 = 99 mL/min/1.73 sq.m. Ages 50-59 = 93 mL/min/1.73 sq.m. Ages 60-69 = 85 mL/min/1.73 sq.m. Ages 70+ = 75 mL/min/1.73 sq.m. Chronic Kidney Disease: Less than 60 mL/min/1.73 square meters End Stage Renal Disease: Less than 15 mL/min/1.73 square meters GFR/1.73 sq M.predicted among non-blacks MDRD (S/P/Bld) [Vol rate/Area] ml/min/1.73sqm Invalid Interpretation Code [employer] S Comment on above: Interpretive Data: GFR Population mean for , Non- Americans Ages 20-29 = 116 mL/min/1.73 sq.m. Ages 30-39 = 107 mL/min/1.73 sq.m. Ages 40-49 = 99 mL/min/1.73 sq.m. Ages 50-59 = 93 mL/min/1.73 sq.m. Ages 60-69 = 85 mL/min/1.73 sq.m. Ages 70+ = 75 mL/min/1.73 sq.m. Chronic Kidney Disease: Less than 60 mL/min/1.73 square meters End Stage Renal Disease: Less than 15 mL/min/1.73 square meters Globulin 3.0 G/dL Normal 1.5 - 3.8 G/dL AH ADM SS Glucose [Mass/Vol] 90 mg/dL Normal 70 - 110 mg/dL AH ADM SS Hematocrit (Bld) [Volume fraction] 29.8 % Low 34.0 - 46.0 % AH Workflow SS Hemoglobin (Bld) [Mass/Vol] 9.9 G/dL Low 12.0 - 16.0 G/dL AH Workflow SS LDH Lactate to pyruvate reaction [Catalytic activity/Vol] 202 1 Normal 120 - 246 U/L AH ADM SS Lymphocytes (Bld) [#/Vol] 2.4 103/mcL Normal 0.9 - 4.3 10^3/mcL AH Workflow SS Lymphocytes/100 WBC (Bld) 14.4 % Low 20.0 - 40.0 % AH Workflow SS MCH (RBC) [Entitic mass] 26.5 pg Low 27.0 - 33.0 pg AH Workflow SS MCHC 33.2 G/dL Normal 32.0 - 36.0 G/dL AH Workflow SS MCV (RBC) [Entitic vol] 79.7 fL Low 80.0 - 99.0 fL AH Workflow SS Monocytes (Bld) [#/Vol] 0.9 103/mcL Normal 0.1 - 1.4 10^3/mcL AH Workflow SS Monocytes/100 WBC (Bld) 5.5 % Normal 2.0 - 13.0 % AH Workflow SS Neutrophils (Bld) [#/Vol] 13.2 103/mcL High 2.3 - 8.1 10^3/mcL AH Workflow SS Neutrophils/100 WBC (Bld) 79.4 % High 50.0 - 75.0 % Workflow SS Platelet mean volume (Bld) [Entitic vol] 8.4 fL Normal 6.6 - 10.5 fL Workflow SS Platelets (Bld) [#/Vol] 203 103/mcL Normal 150 - 450 10^3/mcL AH Workflow SS Potassium [Moles/Vol] 4.0 mmol/L Normal 3.5 - 5.0 mEq/L ADM SS Protein [Mass/Vol] 5.1 G/dL Low 5.7 - 8.2 G/dL AH ADM SS Comment on above: Interpretive Data: * *Note - New Reference Range in effect 19 RBC (Bld) [#/Vol] 3.73 106/mcL Low 4.10 - 5.30 10^6/mcL Workflow SS Sodium [Moles/Vol] 138 mmol/L Normal 136 - 145 mEq/L ADM SS Urea nitrogen [Mass/Vol] 9.0 mg/dL Normal 8.0 - 22.0 mg/dL ADM SS Urea nitrogen/Creatinine [Mass ratio] 16.7 ratio Normal 10.0 - 22.0 ratio ADM SS WBC (Bld) [#/Vol] 16.7 103/mcL High 4.5 - 10.8 10^3/mcL Workflow SS LDHon 12-07-2023 LDH 202 U/L Normal 120-246 [facility] MAIN Comment on above: Performed By: #### C BC, CMP, ADIFF, ANEU, LD, GFR ####[place] [address] RPRon 12-07-2023 Reagin Ab RPR Ql (S) Non-Reactive Normal Non-[place] cti [facility] MAIN Comment on above: Result Comment: The RPR test is a non-treponemal assay useful as an aid in the diagnosis of primary and secondary syphilis. It converts to positive generally within 2 weeks after the appearance of a lesion. This test is also useful for monitoring response to antibiotic therapy. A positive RPR screening test will be followed by the FTA ABS test. False positive RPR tests may occur in 1) patients with underlying autoimmune disorders, 2) elderly patients, 3) , and 4) other conditions with abnormal serum globulins. Performed By: #### A DIFF, RPR, ABOGEL, ABSGEL, CBC, ANEU ####[address] [address] .Auto Diffon 12-06-2023 Basophil, Absolute 0.1 10 3/mcL Normal 0.0-0.3 [facility] MAIN Comment on above: Performed By: #### A DIFF, RPR, ABOGEL, ABSGEL, CBC, ANEU #### [address] [address] Basophils/100 WBC (Bld) 0.6 % Normal 0.0-2.5 [facility] MAIN Comment on above: Performed By: #### A DIFF, RPR, ABOGEL, ABSGEL, CBC, ANEU #### [address] [address] Eosinophil, Absolute 0.1 10 3/mcL Normal 0.0-0.7 [facility] MAIN Comment on above: Performed By: #### A DIFF, RPR, ABOGEL, ABSGEL, CBC, ANEU #### [address] [address] Eosinophils/100 WBC (Bld) 0.9 % Normal 0.0-6.0 [facility] MAIN Comment on above: Performed By: #### A DIFF, RPR, ABOGEL, ABSGEL, CBC, ANEU #### [address] [address] Lymphocyte, Absolute 1.9 10 3/mcL Normal 0.9-4.3 [facility] MAIN Comment on above: Performed By: #### A DIFF, RPR, ABOGEL, ABSGEL, CBC, ANEU #### [address] [address] Lymphocytes/100 WBC (Bld) 12.5 % Low 20.0-40.0 [facility] MAIN Comment on above: Performed By: #### A DIFF, RPR, ABOGEL, ABSGEL, CBC, ANEU #### [address] [address] Monocyte, Absolute 0.7 10 3/mcL Normal 0.1-1.4 [facility] MAIN Comment on above: Performed By: #### A DIFF, RPR, ABOGEL, ABSGEL, CBC, ANEU #### [facility] [address] [place] [address] Monocytes/100 WBC (Bld) 4.9 % Normal 2.0-13.0 [facility] MAIN Comment on above: Performed By: #### A DIFF, RPR, ABOGEL, ABSGEL, CBC, ANEU #### [place] [id number] [address] [place] [address] Neutrophils/100 WBC (Bld) 81.1 % High 50.0-75.0 [facility] MAIN Comment on above: Performed By: #### A DIFF, RPR, ABOGEL, ABSGEL, CBC, ANEU #### [address] [address] .GFRon 12-06-2023 GFR >60 Normal [facility] MAIN Comment on above: Result Comment: GFR Population mean for , Non- Americans Ages 20-29 = 116 mL/min/1.73 sq.m. Ages 30-39 = 107 mL/min/1.73 sq.m. Ages 40-49 = 99 mL/min/1.73 sq.m. Ages 50-59 = 93 mL/min/1.73 sq.m. Ages 60-69 = 85 mL/min/1.73 sq.m. Ages 70+ = 75 mL/min/1.73 sq.m. Chronic Kidney Disease: Less than 60 mL/min/1.73 square meters End Stage Renal Disease: Less than 15 mL/min/1.73 square meters Performed By: #### L D, CMP, GFR #### [address] [address] GFR Non- >60 [facility] MAIN Comment on above: Result Comment: GFR Population mean for , Non- Americans Ages 20-29 = 116 mL/min/1.73 sq.m. Ages 30-39 = 107 mL/min/1.73 sq.m. Ages 40-49 = 99 mL/min/1.73 sq.m. Ages 50-59 = 93 mL/min/1.73 sq.m. Ages 60-69 = 85 mL/min/1.73 sq.m. Ages 70+ = 75 mL/min/1.73 sq.m. Chronic Kidney Disease: Less than 60 mL/min/1.73 square meters End Stage Renal Disease: Less than 15 mL/min/1.73 square meters Performed By: #### L D, CMP, GFR #### [address] [address] .NEUABSon 12-06-2023 Neutrophil, Absolute 12.3 10 3/mcL High 2.3-8.1 [facility] MAIN Comment on above: Performed By: #### A DIFF, RPR, ABOGEL, ABSGEL, CBC, ANEU #### [place] [address] ABO/Rh (Gel)on 12-06-2023 ABO/Rh Interp Negative Invalid Interpretation Code [facility] MAIN Comment on above: Performed By: #### A DIFF, RPR, ABOGEL, ABSGEL, CBC, ANEU #### [place] [address] ABS (Gel)on 12-06-2023 ABSC Interp (Gel) Negative Normal [facility] MAIN Comment on above: Performed By: #### A DIFF, RPR, ABOGEL, ABSGEL, CBC, ANEU #### [place] [id number] CBCon 12-06-2023 Erythrocyte distribution width (RBC) [Ratio] 14.8 % Normal 11.5-15.5 [facility] MAIN Comment on above: Performed By: #### A DIFF, RPR, ABOGEL, ABSGEL, CBC, ANEU #### [place] [address] Hematocrit (Bld) [Volume fraction] 36.0 % Normal 34.0-46.0 [facility] MAIN Comment on above: Performed By: #### A DIFF, RPR, ABOGEL, ABSGEL, CBC, ANEU #### [place] [address] Hgb 12.0 G/dL Normal 12.0-16.0 [facility] MAIN Comment on above: Performed By: #### A DIFF, RPR, ABOGEL, ABSGEL, CBC, ANEU #### [place] [address] MCH (RBC) [Entitic mass] 26.7 pg Low 27.0-33.0 [facility] MAIN Comment on above: Performed By: #### A DIFF, RPR, ABOGEL, ABSGEL, CBC, ANEU #### [place] [address] MCHC 33.4 G/dL Normal 32.0-36.0 [facility] MAIN Comment on above: Performed By: #### A DIFF, RPR, ABOGEL, ABSGEL, CBC, ANEU #### [place] [address] MCV (RBC) [Entitic vol] 79.8 fL Low 80.0-99.0 [facility] MAIN Comment on above: Performed By: #### A DIFF, RPR, ABOGEL, ABSGEL, CBC, ANEU #### [place] [address] Platelet 229 10 3/mcL Normal 150-450 [facility] MAIN Comment on above: Performed By: #### A DIFF, RPR, ABOGEL, ABSGEL, CBC, ANEU #### [place] [address] Platelet mean volume (Bld) [Entitic vol] 8.4 fL Normal 6.6-10.5 [facility] MAIN Comment on above: Performed By: #### A DIFF, RPR, ABOGEL, ABSGEL, CBC, ANEU #### [place] [address] RBC 4.51 10 6/mcL Normal 4.10-5.30 [facility] MAIN Comment on above: Performed By: #### A DIFF, RPR, ABOGEL, ABSGEL, CBC, ANEU #### [place] [address] WBC 15.1 10 3/mcL High 4.5-10.8 [facility] MAIN Comment on above: Performed By: #### A DIFF, RPR, ABOGEL, ABSGEL, CBC, ANEU #### [place] [address] CMPon 12-06-2023 Albumin Level 2.5 G/dL Low 3.2-4.8 [facility] MAIN Comment on above: Performed By: #### L D, CMP, GFR #### [address] [address] Albumin/Globulin [Mass ratio] 0.7 {ratio} Low 0.9-1.6 [facility] MAIN Comment on above: Performed By: #### L D, CMP, GFR #### [address] [address] ALP [Catalytic activity/Vol] 174 U/L High 38-126 [facility] MAIN Comment on above: Performed By: #### L D, CMP, GFR #### [address] [address] ALT [Catalytic activity/Vol] 16 U/L Normal 10-49 [facility] MAIN Comment on above: Performed By: #### L D, CMP, GFR #### [address] [address] AST [Catalytic activity/Vol] 18 U/L Normal 8-34 [facility] MAIN Comment on above: Performed By: #### L D, CMP, GFR #### [address] [address] Bili Total 0.40 mg/dL Normal 0.20-1.20 [facility] MAIN Comment on above: Result Comment: Use of this assay is not recommended for patients undergoing treatment with eltrombopag due to the potential for falsely elevated results. Performed By: #### L D, CMP, GFR #### [place] [id number] BUN/Creatinine Ratio 17.6 ratio Normal 10.0-22.0 [facility] MAIN Comment on above: Performed By: #### L D, CMP, GFR #### [address] [address] Calcium [Mass/Vol] 8.8 mg/dL Normal 8.7-10.4 [facility] MAIN Comment on above: Performed By: #### L D, CMP, GFR #### [address] [address] Chloride [Moles/Vol] 106 mmol/L Normal 98-110 [facility] MAIN Comment on above: Performed By: #### L D, CMP, GFR #### [address] [address] CO2 [Moles/Vol] 23 mmol/L Normal 22-32 [facility] MAIN Comment on above: Performed By: #### L D, CMP, GFR #### [address] [address] Creatinine [Mass/Vol] 0.51 mg/dL Normal 0.50-1.20 [facility] MAIN Comment on above: Result Comment: Test ing performed on [employer] analyzer using enzymatic creatinine methodology. Performed By: #### L D, CMP, GFR #### [address] [address] Electrolyte Balance 8.0 mEq/L Normal 4.0-15.0 [facility] MAIN Comment on above: Performed By: #### L D, CMP, GFR #### [address] [address] Globulin 3.7 G/dL Normal 1.5-3.8 [facility] MAIN Comment on above: Performed By: #### L D, CMP, GFR #### [address] [address] Glucose [Mass/Vol] 85 mg/dL Normal 70-110 [facility] MAIN Comment on above: Performed By: #### L D, CMP, GFR #### [address] [address] Potassium [Moles/Vol] 3.9 mmol/L Normal 3.5-5.0 [facility] MAIN Comment on above: Performed By: #### L D, CMP, GFR #### [address] [address] Sodium [Moles/Vol] 137 mmol/L Normal 136-145 [facility] MAIN Comment on above: Performed By: #### L D, CMP, GFR #### [address] [address] Total Protein 6.2 G/dL Normal 5.7-8.2 [facility] MAIN Comment on above: Result Comment: No te - New Reference Range in effect 19 Performed By: #### L D, CMP, GFR #### [facility] [address] [place] [address] Urea nitrogen [Mass/Vol] 9.0 mg/dL Normal 8.0-22.0 [facility] MAIN Comment on above: Performed By: #### L D, CMP, GFR #### [facility] [address] [place] [address] LABORATORYOrdered By: Cem Gutierrez on 12-06-2023 Appearance (U) Cloudy *ABN* (12/06/23 12:04 PM) Invalid Interpretation Code Clear AH Auto Urine SS Bacteria LM.HPF (Urine sed) [#/Area] 2 /[HPF] Invalid Interpretation Code Negative AH Auto Urine SS Bilirubin Ql (U) Negative (12/06/23 12:04 PM) Normal Neg-Trace AH Auto Urine SS Color (U) Yellow (12/06/23 12:04 PM) Normal AH Auto Urine SS Glucose Test strip (U) [Mass/Vol] Negative Normal Negative AH Auto Urine SS Hemoglobin Auto test strip (U) [Mass/Vol] Large *ABN* (12/06/23 12:04 PM) Invalid Interpretation Code Neg-Trace AH Auto Urine SS Ketones Ql (U) 40 mg/dL Invalid Interpretation Code Neg-Trace AH Auto Urine SS UA Leuk Est Moderate *ABN* (12/06/23 12:04 PM) Invalid Interpretation Code Negative AH Auto Urine SS UA Nitrite Negative (12/06/23 12:04 PM) Normal Negative AH Auto Urine SS UA pH 6.0 (12/06/23 12:04 PM) Normal 5.0 - 8.0 AH Auto Urine SS UA Protein Negative Normal Negative AH Auto Urine SS UA RBC 10-20 /HPF Invalid Interpretation Code 0-2 AH Auto Urine SS UA Spec Grav 1.020 (12/06/23 12:04 PM) Normal 1.006-1.02 9 AH Auto Urine SS UA Specimen Type Clean Catch (12/06/23 12:04 PM) Normal AH Auto Urine SS UA Squam Epithelial 10-20 /HPF Normal 0-20 AH Au to Urine SS UA Urobilinogen 1.0 E.U./dL Normal 0.2-1.0 AH Auto Urine SS WBC LM.HPF (Urine sed) [#/Area] 25-50 /HPF Invalid Interpretation Code 0-5 AH Auto Urine SS LABORATORYOrdered By: Neeraj Barrios on 12-06-2023 Creatinine (U) [Mass/Vol] 97.7 mg/dL Invalid Interpretation Code ADM SS Protein (U) [Mass/Vol] 17.3 mg/dL Invalid Interpretation Code ADM SS U Ratio Prot/Creat 0.2 ratio Invalid Interpretation Code ADM SS LABORATORYOrdered By: SYSTEM SYSTEM on 12-06-2023 Albumin BCP dye [Mass/Vol] 2.5 G/dL Low 3.2 - 4.8 G/dL ADM SS Albumin/Globulin [Mass ratio] 0.7 {ratio} Low 0.9 - 1.6 ratio ADM SS ALP [Catalytic activity/Vol] 174 U/L High 38 - 126 U/L ADM SS ALT No additional P-5'-P [Catalytic activity/Vol] 16 U/L Normal 10 - 49 U/L ADM SS AST [Catalytic activity/Vol] 18 U/L Normal 8 - 34 U/L ADM SS Bilirubin [Mass/Vol] 0.40 mg/dL Normal 0.20 - 1.20 mg/dL ADM SS Comment on above: Interpretive Data: U se of this assay is not recommended for patients undergoing treatment with eltrombopag due to the potential for falsely elevated results. Calcium [Mass/Vol] 8.8 mg/dL Normal 8.7 - 10. 4 mg/dL ADM SS Chloride [Moles/Vol] 106 mmol/L Normal 98 - 11 0 mEq/L ADM SS CO2 [Moles/Vol] 23 mmol/L Normal 22 - 32 mEq/L ADM SS Creatinine [Mass/Vol] 0.51 mg/dL Normal 0.50 - 1.20 mg/dL ADM SS Comment on above: Interpretive Data: T esting performed on [employer] analyzer using enzymatic creatinine methodology. Electrolyte Balance 8.0 mEq/L Normal 4.0 - 15 .0 mEq/L ADM SS GFR/1.73 sq M.predicted among blacks MDRD (S/P/Bld) [Vol rate/Area] ml/min/1.73sqm Invalid Interpretation Code Chemistry S Comment on above: Interpretive Data: GFR Population mean for , Non- Americans Ages 20-29 = 116 mL/min/1.73 sq.m. Ages 30-39 = 107 mL/min/1.73 sq.m. Ages 40-49 = 99 mL/min/1.73 sq.m. Ages 50-59 = 93 mL/min/1.73 sq.m. Ages 60-69 = 85 mL/min/1.73 sq.m. Ages 70+ = 75 mL/min/1.73 sq.m. Chronic Kidney Disease: Less than 60 mL/min/1.73 square meters End Stage Renal Disease: Less than 15 mL/min/1.73 square meters GFR/1.73 sq M.predicted among non-blacks MDRD (S/P/Bld) [Vol rate/Area] ml/min/1.73sqm Invalid Interpretation Code Chemistry S Comment on above: Interpretive Data: GFR Population mean for , Non- Americans Ages 20-29 = 116 mL/min/1.73 sq.m. Ages 30-39 = 107 mL/min/1.73 sq.m. Ages 40-49 = 99 mL/min/1.73 sq.m. Ages 50-59 = 93 mL/min/1.73 sq.m. Ages 60-69 = 85 mL/min/1.73 sq.m. Ages 70+ = 75 mL/min/1.73 sq.m. Chronic Kidney Disease: Less than 60 mL/min/1.73 square meters End Stage Renal Disease: Less than 15 mL/min/1.73 square meters Globulin 3.7 G/dL Normal 1.5 - 3.8 G/dL ADM SS Glucose [Mass/Vol] 85 mg/dL Normal 70 - 110 mg/dL ADM LDH Lactate to pyruvate reaction [Catalytic activity/Vol] 177 1 Normal 120 - 246 U/L ADM SS Potassium [Moles/Vol] 3.9 mmol/L Normal 3.5 - 5.0 mEq/L ADM SS Protein [Mass/Vol] 6.2 G/dL Normal 5.7 - 8.2 G/dL ADM Comment on above: Interpretive Data: * *Note - New Reference Range in effect 19 Sodium [Moles/Vol] 137 mmol/L Normal 136 - 145 mEq/L ADM SS Urea nitrogen [Mass/Vol] 9.0 mg/dL Normal 8.0 - 22.0 mg/dL AH ADM SS Urea nitrogen/Creatinine [Mass ratio] 17.6 ratio Normal 10.0 - 22.0 ratio AH ADM SS Basophils (Bld) [#/Vol] 0.1 103/mcL Normal 0.0 - 0.3 10^3/mcL AH Workflow SS Basophils/100 WBC (Bld) 0.6 % Normal 0.0 - 2.5 % AH Workflow SS Eosinophils (Bld) [#/Vol] 0.1 103/mcL Normal 0.0 - 0.7 10^3/mcL AH Workflow SS Eosinophils/100 WBC (Bld) 0.9 % Normal 0.0 - 6.0 % AH Workflow SS Erythrocyte distribution width (RBC) [Ratio] 14.8 % Normal 11.5 - 15.5 % AH Workflow SS Hematocrit (Bld) [Volume fraction] 36.0 % Normal 34.0 - 46.0 % AH Workflow SS Hemoglobin (Bld) [Mass/Vol] 12.0 G/dL Normal 12.0 - 16.0 G/dL AH Workflow SS Lymphocytes (Bld) [#/Vol] 1.9 103/mcL Normal 0.9 - 4.3 10^3/mcL AH Workflow SS Lymphocytes/100 WBC (Bld) 12.5 % Low 20.0 - 40.0 % AH Workflow SS MCH (RBC) [Entitic mass] 26.7 pg Low 27.0 - 33.0 pg AH Workflow SS MCHC 33.4 G/dL Normal 32.0 - 36.0 G/dL AH Workflow SS MCV (RBC) [Entitic vol] 79.8 fL Low 80.0 - 99.0 fL AH Workflow SS Monocytes (Bld) [#/Vol] 0.7 103/mcL Normal 0.1 - 1.4 10^3/mcL AH Workflow SS Monocytes/100 WBC (Bld) 4.9 % Normal 2.0 - 13.0 % AH Workflow SS Neutrophils (Bld) [#/Vol] 12.3 103/mcL High 2.3 - 8.1 10^3/mcL AH Workflow SS Neutrophils/100 WBC (Bld) 81.1 % High 50.0 - 75.0 % AH Workflow SS Platelet mean volume (Bld) [Entitic vol] 8.4 fL Normal 6.6 - 10.5 fL AH Workflow SS Platelets (Bld) [#/Vol] 229 103/mcL Normal 150 - 450 10^3/mcL Workflow SS RBC (Bld) [#/Vol] 4.51 106/mcL Normal 4.10 - 5.30 10^6/mcL AH Workflow SS WBC (Bld) [#/Vol] 15.1 103/mcL High 4.5 - 10.8 10^3/mcL AH Workflow SS LABORATORYOrdered By: Ira Douglas on 12-06-2023 ABO and Rh group Nom (Bld) O negative (12/06/23 10:13 AM) [facility] Work Phone: Group B Strep Date Performed [id number] [facility] Work Phone: Group B Strep, External Positive (12/06/23 10:13 AM) [facility] Work Phone: Hepatitis B Date Performed [id number] [facility] Work Phone: Hepatitis B, External Negative (12/06/23 10:13 AM) [facility] Work Phone: HIV Antibodies, External Negative (12/06/23 10:13 AM) [facility] Work Phone: RPR, External Nonreactive (12/06/23 10:13 AM) [facility] Work Phone: Rubella, External Immune (12/06/23 10:13 AM) [facility] Work Phone: LABORATORYOrdered By: Nicholas Saldana on 12-06-2023 ABO and Rh group Nom (Bld) Blood group O Rh(D) negative Invalid Interpretation Code AH BB Auto SS Blood group antibody screen Ql Negative ABSC (12/06/23 10:10 AM) Normal AH BB Auto SS LABORATORYOrdered By: Daisha Polanco on 12-06-2023 Reagin Ab RPR Ql (S) Non-Reactive 7 (12/06/23 10:10 AM) Normal Non-Reacti ve AH Man Viro/Sero SS Comment on above: Interpretive Data: T he RPR test is a non-treponemal assay useful as an aid in the diagnosis of primary and secondary syphilis. It converts to positive generally within 2 weeks after the appearance of a lesion. This test is also useful for monitoring response to antibiotic therapy. A positive RPR screening test will be followed by the FTA ABS test. False positive RPR tests may occur in 1) patients with underlying autoimmune disorders, 2) elderly patients, 3) , and 4) other conditions with abnormal serum globulins. LDHon 12-06-2023 LDH 177 U/L Normal 120-246 [facility] Comment on above: Performed By: #### L D, CMP, GFR #### [place] [address] No Panel Informationon 12-05 Culture Urine <10,000 cfu/ml. No Significant growth. Sensitivity not indicated. [facility] Work Phone: RPCURon 12-06-2023 U Creatinine 97.7 mg/dL [facility] MAIN Comment on above: Performed By: #### R PCUR ####[place] [address] U Protein 17.3 mg/dL Normal [facility] Comment on above: Performed By: #### R PCUR ####[place] [address] U Ratio Prot/Creat 0.2 ratio [facility] MAIN Comment on above: Result Comment: resu lt calculated by rule GL_[id number]_PROT_[id number]_OLD (U Protein/U Creatinine) Performed By: #### R PCUR ####[place] [address] UAon 12-06-2023 Color (U) Yellow Normal [facility] Comment on above: Performed By: #### U AMIC, UA ####[place] [address] Glucose (U) [Mass/Vol] Negative Normal Negative [facility] Comment on above: Performed By: #### U AMIC, UA ####[place] [address] Ketones Ql (U) 40 mg/dL Abnormal Neg-Trace [facility] Comment on above: Performed By: #### U AMIC, UA ####[place] [id number] UA Appear Cloudy Abnormal Clear [facility] Comment on above: Performed By: #### U AMIC, UA ####[place] [address] UA Blood Large Abnormal Neg-Trace [facility] Comment on above: Performed By: #### U AMIC, UA ####[place] [address] UA Leuk Est Moderate Abnormal Negative [facility] Comment on above: Performed By: #### U AMIC, UA ####[place] [address] UA Nitrite Negative Normal Negative [facility] Comment on above: Performed By: #### U AMIC, UA ####[place] [address] UA pH 6.0 Normal 5.0 - 8.0 [facility] Comment on above: Performed By: #### U AMIC, UA ####[place] [address] UA Protein Negative Normal Negative [facility] Comment on above: Performed By: #### U AMIC, UA ####[place] [address] UA Spec Grav 1.020 Normal 1.006-1.[address] [place] [address] MAIN Comment on above: Performed By: #### U AMIC, UA ####[place] [address] UA Specimen Type Clean Catch Normal [facility] Comment on above: Performed By: #### U AMIC, UA ####[place] [address] UA Urobilinogen 1.0 E.U./dL Normal 0.2-1.0 [facility] Comment on above: Performed By: #### U AMIC, UA ####[place] [address] Urobilinogen (U) [Mass/Vol] Negative Normal Neg-Trace [facility] Comment on above: Performed By: #### U AMIC, UA ####[address] [place] [address] UAMICon 12-06-2023 UA Bacteria 2+ /hpf Abnormal Negative [facility] Comment on above: Performed By: #### U AMIC, UA ####[facility] [place] [address] UA RBC 10-20 Abnormal 0-2 [facility] Comment on above: Performed By: #### U AMIC, UA ####[facility] [place] [address] UA Squam Epithelial 10-20 Normal 0-20 [facility] MAIN Comment on above: Performed By: #### U AMIC, UA ####[facility] [place] [address] UA WBC 25-50 Abnormal 0-5 [facility] Comment on above: Performed By: #### U AMIC, UA ####[place] [id number] [place] [address] LABORATORYOrdered By: Mariaelena Benavides on 11-15-2023 Group B Strep PCR Int Group B Streptococcus DNA detected by Real-Time Polymerase Chain Reaction (PCR). Organism viability cannot be determined since DNA may persist in the absence of viable organisms. As with all PCR invitro tests, extremely low level of target, below the limit of detection of the assay may be detected, but results may not be reproducible. Sensitivity testing method.is not available with this Invalid Interpretation Code AO Auto Urine SS S. agalactiae DNA EVIN+probe Ql (Vag+Rectum) Positive *ABN* (11/15/23 2:10 PM) Invalid Interpretation Code Negative AO Auto Urine SS RPRon 09-27-2023 Reagin Ab RPR Ql (S) Non-Reactive Normal Non-Caron cti ve [facility] ([place]) Comment on above: Result Comment: The RPR test is a non-treponemal assay useful as an aid in the diagnosis of primary and secondary syphilis. It converts to positive generally within 2 weeks after the appearance of a lesion. This test is also useful for monitoring response to antibiotic therapy. A positive RPR screening test will be followed by the FTA ABS test. False positive RPR tests may occur in 1) patients with underlying autoimmune disorders, 2) elderly patients, 3) , and 4) other conditions with abnormal serum globulins. Performed By: #### N GPCR1, CTPCR #### [address] [address] .Auto Diffon 09-26-2023 Basophil, Absolute 0.0 10 3/mcL Normal 0.0-0.2 [facility] ([place]) Comment on above: Performed By: #### A KATIA, ADIFF, CBC #### [address] [address] #### RPR #### [address] [address] Basophils/100 WBC (Bld) 0.2 % Normal 0.0-2.5 [facility] ([place]) Comment on above: Performed By: #### A KATIA, ADIFF, CBC #### [address] [address] #### RPR #### [address] [address] Eosinophil, Absolute 0.1 10 3/mcL Normal 0.0-0.4 [facility] ([place]) Comment on above: Performed By: #### A KATIA, ADIFF, CBC #### [address] [address] #### RPR #### [address] [address] Eosinophils/100 WBC (Bld) 1.0 % Normal 0.0-7.0 [facility] ([place]) Comment on above: Performed By: #### A KATIA, ADIFF, CBC #### [address] [address] #### RPR #### [address] [address] Lymphocyte, Absolute 2.0 10 3/mcL Normal 0.8-3.9 [facility] ([place]) Comment on above: Performed By: #### A KATIA, ADIFF, CBC #### [address] [address] #### RPR #### [address] [address] Lymphocytes/100 WBC (Bld) 14.8 % Normal 10.0-50.0 [facility] ([place]) Comment on above: Performed By: #### A KATIAVIANNEYIFF, CBC #### [address] [address] #### RPR #### [address] [address] Monocyte, Absolute 0.5 10 3/mcL Normal 0.2-1.0 [facility] ([place]) Comment on above: Performed By: #### A KATIA, ADIFF, CBC #### [address] [address] #### RPR #### [address] [address] Monocytes/100 WBC (Bld) 4.0 % Normal 1.7-13.0 [facility] ([place]) Comment on above: Performed By: #### A VIANNEY MONTALVOIFF, CBC #### [address] [address] #### RPR #### [address] [address] Neutrophils/100 WBC (Bld) 80.0 % Normal 37.0-80.0 [facility] ([place]) Comment on above: Performed By: #### A VIANNEY MONTALVOIFF, CBC #### [address] [address] #### RPR #### [address] [address] .NEUABSon 09-26-2023 Neutrophil, Absolute 10.8 10 3/mcL High 2.9-6.2 [facility] ([place]) Comment on above: Performed By: #### A KATIA, VIANNEYIFF, CBC #### [address] [address] #### RPR #### [address] [address] ABO/Rh (Gel)on 09-26-2023 ABO/Rh Interp Negative Invalid Interpretation Code [facility] ([place]) Comment on above: Performed By: #### N GPCR1, CTPCR #### [address] [address] ABS (Gel)on 09-26-2023 ABSC Interp (Gel) Negative Normal [facility] ([place]) Comment on above: Performed By: #### N GPCR1, CTPCR #### [place] [id number] CBCon 09-26-2023 Erythrocyte distribution width (RBC) [Ratio] 13.8 % Normal 11.5-14.5 [facility] ([place]) Comment on above: Performed By: #### A OMAIRA MONTALVO, CBC #### [place] [address] #### RPR #### [place] [address] Hematocrit (Bld) [Volume fraction] 35.2 % Low 37.0-47.0 [facility] ([place]) Comment on above: Performed By: #### A OMAIRA MONTALVO, CBC #### [place] [address] #### RPR #### [place] [address] Hgb 11.9 G/dL Low 12.0-16.0 [facility] ([place]) Comment on above: Performed By: #### A OMAIRA MONTALVO, CBC #### [place] [address] #### RPR #### [place] [address] MCH (RBC) [Entitic mass] 28.4 pg Normal 27.0-31.2 [facility] ([place]) Comment on above: Performed By: #### A OMAIRA MONTALVO, CBC #### [place] [address] #### RPR #### [place] [address] MCHC 33.8 G/dL Normal 33.0-37.0 [facility] ([place]) Comment on above: Performed By: #### A OMAIRA MONTALVO, CBC #### [address] [address] #### RPR #### [address] [address] MCV (RBC) [Entitic vol] 84.0 fL Normal 80.0-94.0 [facility] ([place] Comment on above: Performed By: #### A VIANNEY MONTALVOIFF, CBC #### [place] [address] #### RPR #### [address] [address] Platelet 233 10 3/mcL Normal 130-400 [facility] ([place]) Comment on above: Performed By: #### A VIANNEY MONTALVOIFF, CBC #### [place] [address] #### RPR #### [place] [address] Platelet mean volume (Bld) [Entitic vol] 8.2 fL Normal 7.4-10.4 [facility] ([place]) Comment on above: Performed By: #### A OMAIRA MONTALVO, CBC #### [place] [address] #### RPR #### [place] [address] RBC 4.19 10 6/mcL Low 4.20-5.40 [facility] ([place]) Comment on above: Performed By: #### A VIANNEY MONTALVOIFF, CBC #### [place] [id number] #### RPR #### [address] [address] WBC 13.5 10 3/mcL High 4.6-10.8 [facility] ([place]) Comment on above: Performed By: #### A VIANNEY MONTALVOIFF, CBC #### [place] [address] #### RPR #### [address] [address] .Auto Diffon 09-23-2023 Basophil, Absolute 0.0 10 3/mcL Normal 0.0-0.2 [facility] ([place]) Comment on above: Performed By: #### N GPCR1, CTPCR #### [address] [address] Basophils/100 WBC (Bld) 0.2 % Normal 0.0-2.5 [facility] ([place]) Comment on above: Performed By: #### N GPCR1, CTPCR #### [address] [address] Eosinophil, Absolute 0.1 10 3/mcL Normal 0.0-0.4 [facility] ([place]) Comment on above: Performed By: #### N GPCR1, CTPCR #### [address] [address] Eosinophils/100 WBC (Bld) 0.8 % Normal 0.0-7.0 [facility] ([place]) Comment on above: Performed By: #### N GPCR1, CTPCR #### [address] [address] Lymphocyte, Absolute 2.0 10 3/mcL Normal 0.8-3.9 [facility] ([place]) Comment on above: Performed By: #### N GPCR1, CTPCR #### [address] [address] Lymphocytes/100 WBC (Bld) 13.1 % Normal 10.0-50.0 [facility] ([place]) Comment on above: Performed By: #### N GPCR1, CTPCR #### [address] [address] Monocyte, Absolute 0.7 10 3/mcL Normal 0.2-1.0 [facility] ([place]) Comment on above: Performed By: #### N GPCR1, CTPCR #### [address] [address] Monocytes/100 WBC (Bld) 4.9 % Normal 1.7-13.0 [facility] ([place]) Comment on above: Performed By: #### N GPCR1, CTPCR #### [address] [address] Neutrophils/100 WBC (Bld) 81.0 % High 37.0-80.0 [facility] ([place]) Comment on above: Performed By: #### N GPCR1, CTPCR #### [address] [address] .GFRon 09-23-2023 GFR Non- 111 ml/min/1.73sqm Normal [facility] ([place]) Comment on above: Result Comment: GFR Population mean for , Non- Americans Ages 20-29 = 116 mL/min/1.73 sq.m. Ages 30-39 = 107 mL/min/1.73 sq.m. Ages 40-49 = 99 mL/min/1.73 sq.m. Ages 50-59 = 93 mL/min/1.73 sq.m. Ages 60-69 = 85 mL/min/1.73 sq.m. Ages 70+ = 75 mL/min/1.73 sq.m. Chronic Kidney Disease: Less than 60 mL/min/1.73 square meters End Stage Renal Disease: Less than 15 mL/min/1.73 square meters Performed By: #### N GPCR1, CTPCR #### [address] [address] GFR 135 ml/min/1.73sqm Normal [facility] ([place]) Comment on above: Result Comment: GFR Population mean for , Non- Americans Ages 20-29 = 116 mL/min/1.73 sq.m. Ages 30-39 = 107 mL/min/1.73 sq.m. Ages 40-49 = 99 mL/min/1.73 sq.m. Ages 50-59 = 93 mL/min/1.73 sq.m. Ages 60-69 = 85 mL/min/1.73 sq.m. Ages 70+ = 75 mL/min/1.73 sq.m. Chronic Kidney Disease: Less than 60 mL/min/1.73 square meters End Stage Renal Disease: Less than 15 mL/min/1.73 square meters Performed By: #### N GPCR1, CTPCR #### [address] [address] .MDWon 09-23-2023 Monocyte Distribution Width 15.44 Normal 0.00-20.00 [facility] ([place]) Comment on above: Result Comment: For ED adult patients suspected of sepsis, MDW<=20.0 does not rule out sepsis or risk of sepsis Performed By: #### N GPCR1, CTPCR #### [place] [address] .NEUABSon 09-23-2023 Neutrophil, Absolute 12.2 10 3/mcL High 2.9-6.2 [facility] ([place]) Comment on above: Performed By: #### N GPCR1, CTPCR #### [place] [address] BMPon 09-23-2023 BUN/Creatinine Ratio 16 ratio Normal 7-27 [facility] ([place]) Comment on above: Performed By: #### N GPCR1, CTPCR #### [place] [address] Calcium [Mass/Vol] 9.1 mg/dL Normal 8.4-10.2 [facility] ([place]) Comment on above: Performed By: #### N GPCR1, CTPCR #### [place] [address] Chloride [Moles/Vol] 102 mmol/L Normal 98-107 [facility] ([place]) Comment on above: Performed By: #### N GPCR1, CTPCR #### [place] [address] CO2 [Moles/Vol] 27 mmol/L Normal 22-29 [facility] ([place]) Comment on above: Performed By: #### N GPCR1, CTPCR #### [place] [address] Creatinine [Mass/Vol] 0.61 mg/dL Normal 0.55-1.02 [facility] ([place] Comment on above: Performed By: #### N GPCR1, CTPCR #### [place] [address] Electrolyte Balance 7.0 mEq/L Normal 4.0-15.0 [facility] [place] Comment on above: Performed By: #### N GPCR1, CTPCR #### [address] [address] Glucose [Mass/Vol] 124 mg/dL High 70-105 [facility] ([place]) Comment on above: Performed By: #### N GPCR1, CTPCR #### [address] [address] Potassium [Moles/Vol] 3.7 mmol/L Normal 3.5-5.1 [facility] ([place]) Comment on above: Performed By: #### N GPCR1, CTPCR #### [address] [address] Sodium [Moles/Vol] 136 mmol/L Normal 136-145 [facility] ([place]) Comment on above: Performed By: #### N GPCR1, CTPCR #### [place] [id number] Urea nitrogen [Mass/Vol] 10 mg/dL Normal 7-18 [facility] ([place]) Comment on above: Performed By: #### N GPCR1, CTPCR #### [address] [address] CBCon 09-23-2023 Erythrocyte distribution width (RBC) [Ratio] 13.9 % Normal 11.5-14.5 [facility] ([place]) Comment on above: Performed By: #### N GPCR1, CTPCR #### [address] [address] Hematocrit (Bld) [Volume fraction] 35.5 % Low 37.0-47.0 [facility] ([place]) Comment on above: Performed By: #### N GPCR1, CTPCR #### [address] [address] Hgb 11.9 G/dL Low 12.0-16.0 [facility] ([place]) Comment on above: Performed By: #### N GPCR1, CTPCR #### [address] [address] MCH (RBC) [Entitic mass] 28.2 pg Normal 27.0-31.2 [facility] ([place]) Comment on above: Performed By: #### N GPCR1, CTPCR #### [place] [address] MCHC 33.7 G/dL Normal 33.0-37.0 [facility] ([place]) Comment on above: Performed By: #### N GPCR1, CTPCR #### [place] [id number] MCV (RBC) [Entitic vol] 83.8 fL Normal 80.0-94.0 [facility] ([place]) Comment on above: Performed By: #### N GPCR1, CTPCR #### [place] [id number] Platelet 229 10 3/mcL Normal 130-400 [facility] ([place]) Comment on above: Performed By: #### N GPCR1, CTPCR #### [place] [address] Platelet mean volume (Bld) [Entitic vol] 7.8 fL Normal 7.4-10.4 [facility] ([place]) Comment on above: Performed By: #### N GPCR1, CTPCR #### [place] [id number] RBC 4.23 10 6/mcL Normal 4.20-5.40 [facility] ([place]) Comment on above: Performed By: #### N GPCR1, CTPCR #### [place] [id number] WBC 15.1 10 3/mcL High 4.6-10.8 [facility] ([place]) Comment on above: Performed By: #### N GPCR1, CTPCR #### [place] [address] DIMERon 09-23-2023 D-Dimer <200 Normal 0-230 [facility] ([place]) Comment on above: Result Comment: DDN: Results reported in D-DU ng/mL. Negative for D-dimer. DVT/PE is highly unlikely. Note: False negative results may be seen in patients on anticoagulant therapy. The result of the D-Dimer test should be evaluated in the context of all the clinical and laboratory data available. In those instances where the laboratory result does not agree with the clinical evaluation, additional tests should be performed accordingly. If the D-Dimer result is used to exclude DVT or PE, the recommended cutoff value is less than 230 ng/mL. The D-Dimer result should not be used alone to rule in DVT/PE, but should be used in conjunction with a clinical pretest probability (PTP)assessment model to exclude venous thromboembolism (VTE) in outpatients suspected of deep venous thrombosis (DVT) and pulmonary embolism (PE). Performed By: #### N GPCR1, CTPCR #### [place] [address] LABORATORYOrdered By: Vikki Carballo on 09-23-2023 Fibrin D-dimer DDU (PPP) [Mass/Vol] ng/mL D-DU Normal 0 - 230 ng/mL D-DU AO [facility] SS Comment on above: Result Comment: DDN: Results reported in D-DU ng/mL. Negative for D-dimer. DVT/PE is highly unlikely. Note: False negative results may be seen in patients on anticoagulant therapy. Interpretive Data: T he result of the D-Dimer test should be evaluated in the context of all the clinical and laboratory data available. In those instances where the laboratory result does not agree with the clinical evaluation, additional tests should be performed accordingly. If the D-Dimer result is used to exclude DVT or PE, the recommended cutoff value is less than 230 ng/mL. The D-Dimer result should not be used alone to rule in DVT/PE, but should be used in conjunction with a clinical pretest probability (PTP)assessment model to exclude venous thromboembolism (VTE) in outpatients suspected of deep venous thrombosis (DVT) and pulmonary embolism (PE). LABORATORYOrdered By: SYSTEM SYSTEM on 09-23-2023 Basophil, Absolute 0.0 103/mcL Normal 0.0 - 0.2 10^3/mcL AO Workflow SS Basophils/100 WBC (Bld) 0.2 % Normal 0.0 - 2.5 % AO Workflow SS Calcium [Mass/Vol] 9.1 mg/dL Normal 8.4 - 10. 2 mg/dL AO ADM SS Chloride [Moles/Vol] 102 mmol/L Normal 98 - 10 7 mmol/L AO ADM SS CO2 [Moles/Vol] 27 mmol/L Normal 22 - 29 mmol/L AO ADM SS Creatinine [Mass/Vol] 0.61 mg/dL Normal 0.55 - 1.02 mg/dL AO ADM SS Electrolyte Balance 7.0 mEq/L Normal 4.0 - 15 .0 mEq/L AO ADM SS Eosinophil, Absolute 0.1 103/mcL Normal 0.0 - 0 .4 10^3/mcL AO Workflow SS Eosinophils/100 WBC (Bld) 0.8 % Normal 0.0 - 7.0 % AO Workflow SS Erythrocyte distribution width (RBC) [Ratio] 13.9 % Normal 11.5 - 14.5 % AO Workflow SS GFR/1.73 sq M.predicted among blacks MDRD (S/P/Bld) [Vol rate/Area] 135 ml/min/1.73sqm Invalid Interpretation Code AO Chemistry S Comment on above: Interpretive Data: GFR Population mean for , Non- Americans Ages 20-29 = 116 mL/min/1.73 sq.m. Ages 30-39 = 107 mL/min/1.73 sq.m. Ages 40-49 = 99 mL/min/1.73 sq.m. Ages 50-59 = 93 mL/min/1.73 sq.m. Ages 60-69 = 85 mL/min/1.73 sq.m. Ages 70+ = 75 mL/min/1.73 sq.m. Chronic Kidney Disease: Less than 60 mL/min/1.73 square meters End Stage Renal Disease: Less than 15 mL/min/1.73 square meters GFR/1.73 sq M.predicted among non-blacks MDRD (S/P/Bld) [Vol rate/Area] 111 ml/min/1.73sqm Invalid Interpretation Code AO Chemistry S Comment on above: Interpretive Data: GFR Population mean for , Non- Americans Ages 20-29 = 116 mL/min/1.73 sq.m. Ages 30-39 = 107 mL/min/1.73 sq.m. Ages 40-49 = 99 mL/min/1.73 sq.m. Ages 50-59 = 93 mL/min/1.73 sq.m. Ages 60-69 = 85 mL/min/1.73 sq.m. Ages 70+ = 75 mL/min/1.73 sq.m. Chronic Kidney Disease: Less than 60 mL/min/1.73 square meters End Stage Renal Disease: Less than 15 mL/min/1.73 square meters Glucose [Mass/Vol] 124 mg/dL High 70 - 105 mg/dL AO ADM SS Hematocrit (Bld) [Volume fraction] 35.5 % Low 37.0 - 47.0 % AO Workflow SS Hemoglobin (Bld) [Mass/Vol] 11.9 G/dL Low 12.0 - 16.0 G/dL AO Workflow SS Lymphocyte, Absolute 2.0 103/mcL Normal 0.8 - 3 .9 10^3/mcL AO Workflow SS Lymphocytes/100 WBC (Bld) 13.1 % Normal 10.0 - 50.0 % AO Workflow SS Magnesium [Mass/Vol] 1.7 mg/dL Low 1.8 - 2 .4 mg/dL AO ADM SS MCH (RBC) [Entitic mass] 28.2 pg Normal 27.0 - 31.2 pg AO Workflow SS MCHC 33.7 G/dL Normal 33.0 - 37.0 G/dL AO Workflow SS MCV (RBC) [Entitic vol] 83.8 fL Normal 80.0 - 94.0 fL AO Workflow SS Monocyte distribution width Auto (Bld) [Entitic vol] 15.44 1 Normal 0.00 - 20.00 AO Workflow SS Comment on above: Result Comment: For ED adult patients suspected of sepsis, MDW<=20.0 does not rule out sepsis or risk of sepsis Monocyte, Absolute 0.7 103/mcL Normal 0.2 - 1.0 10^3/mcL AO Workflow SS Monocytes/100 WBC (Bld) 4.9 % Normal 1.7 - 13.0 % AO Workflow SS Neutrophil, Absolute 12.2 103/mcL High 2.9 - 6 .2 10^3/mcL AO Workflow SS Neutrophils/100 WBC (Bld) 81.0 % High 37.0 - 80.0 % AO Workflow SS Platelet mean volume (Bld) [Entitic vol] 7.8 fL Normal 7.4 - 10.4 fL AO Workflow SS Platelets (Bld) [#/Vol] 229 103/mcL Normal 130 - 400 10^3/mcL AO Workflow SS Potassium [Moles/Vol] 3.7 mmol/L Normal 3.5 - 5.1 mmol/L AO ADM SS RBC (Bld) [#/Vol] 4.23 106/mcL Normal 4.20 - 5.40 10^6/mcL AO Workflow SS Sodium [Moles/Vol] 136 mmol/L Normal 136 - 145 mmol/L AO ADM SS Troponin I.cardiac DL <= 0.01 ng/mL [Mass/Vol] 5 ng/L Normal 0 - 51 ng/L AO ADM SS Comment on above: Interpretive Data: H igh Sensitive Troponin I Reference Ranges: Female: 0-51 ng/L Male: 0-76 ng/L Testing performed on Dimension EXL using a homogeneous sandwich chemiluminescent immunoassay based on [employer] technology. Urea nitrogen [Mass/Vol] 10 mg/dL Normal 7 - 18 mg/dL AO ADM SS Urea nitrogen/Creatinine [Mass ratio] 16 ratio Normal 7 - 27 ratio AO ADM SS WBC (Bld) [#/Vol] 15.1 103/mcL High 4.6 - 10.8 10^3/mcL AO Workflow SS MGon 09-23-2023 Magnesium [Mass/Vol] 1.7 mg/dL Low 1.8-2.4 [facility] ([place]) Comment on above: Performed By: #### N GPCR1, CTPCR #### [place] [address] TROPHSon 09-23-2023 High Sensitivity Troponin I 5 ng/L Normal 0-51 [facility] ([place]) Comment on above: Result Comment: High Sensitive Troponin I Reference Ranges: Female: 0-51 ng/L Male: 0-76 ng/L Testing performed on SumZero using a homogeneous sandwich chemiluminescent immunoassay based on X[employer] Digital technology. Performed By: #### N GPCR1, CTPCR #### [place] [address] XR CHEST 2 VIEWSon 4 XR CHEST 2 VIEWS ORIGINAL EXAMINATION: TWO XRAY VIEWS OF THE CHEST 09/23/2023 5:02 pm COMPARISON: None. HISTORY: ORDERING SYSTEM PROVIDED HISTORY: Reason for Exam: pain, sob, FINDINGS: The cardiomediastinal silhouette appears normal. There is no focal consolidation. There is no pulmonary edema. There is no evidence of pleural effusion. There is no evidence of pneumothorax. No acute fracture is identified. IMPRESSION: No acute abnormality is identified. Interpreted by: Freddy Ireland Preliminary Report By: Freddy Ireland Electronically signed By Freddy Ireland Dictated Date: 09/23/2023 5:03:00 PM Prelim Date: 09/23/2023 5:03:58 PM Sign Date: 09/23/2023 5:03:58 PM Ordering Provider: RAYNE Antoine [facility] ([place]) CTPCRon 06-18-2023 C. trachomatis Interp Normal See CT Interp N [facility] ([place]) Comment on above: Result Comment: C. t rachomatis DNA not detected. Specimen is presumptive negative for C. trachomatis. A negative result does not preclude C. trachomatis infection because results depend on adequate specimen collection, absence of inhibitors, and sufficient DNA to be detected. See CT Interp N Performed By: #### N GPCR1, CTPCR #### [address] [address] C.trachomatis PCR Negative Normal Negative [facility] ([place]) Comment on above: Result Comment: Mole cular (PCR) assay performed on the [employer] 4800 system. Performed By: #### N GPCR1, CTPCR #### [address] [address] Chlam Source Vaginal Normal [facility] ([place]) Comment on above: Performed By: #### N GPCR1, CTPCR #### [address] [address] [id number] 06-18-2023 GC PCR Source Vaginal Normal [facility] ([place]) Comment on above: Performed By: #### N GPCR1, CTPCR #### [address] [address] N. gonorrhoeae (PCR) Negative Normal Negative [facility] ([place]) Comment on above: Result Comment: Mole cular (PCR) assay performed on the [employer] 4800 System. Performed By: #### N GPCR1, CTPCR #### [address] [address] N. gonorrhoeae Interp Normal See NG Interp N [facility] ([place]) Comment on above: Result Comment: N. g onorrhoeae DNA not detected. Specimen is presumptive negative for N. gonorrhoeae. A negative result does not preclude Neisseria gonorrhoeae infection because results depend on adequate specimen collection, absence of inhibitors, and sufficient DNA to be detected. See NG Michellep N Performed By: #### N GPCR1, CTPCR #### [place] [address] RPRon 06-15-2023 Reagin Ab RPR Ql (S) Non-Reactive Normal Non-[place] cti ve [facility] ([place]) Comment on above: Result Comment: The RPR test is a non-treponemal assay useful as an aid in the diagnosis of primary and secondary syphilis. It converts to positive generally within 2 weeks after the appearance of a lesion. This test is also useful for monitoring response to antibiotic therapy. A positive RPR screening test will be followed by the FTA ABS test. False positive RPR tests may occur in 1) patients with underlying autoimmune disorders, 2) elderly patients, 3) , and 4) other conditions with abnormal serum globulins. Performed By: #### N GPCR1, CTPCR #### [place] [address] RUBISon 06-15-[address] Positive Normal Positive [facility] ([place]) Comment on above: Result Comment: This immune status assay detects IgM and/or IgG antibody to Rubella. Interpret results in conjunction with clinical history. POS: Antibody detected; exposure at undetermined recent or distant time. If clinically indicated, order Rubella IGM to rule out recent infection. NEG: No antibody detected. Performed By: #### N GPCR1, CTPCR #### [place] [address] .Auto Diffon 06-14-2023 Basophil, Absolute 0.0 10 3/mcL Normal 0.0-0.2 [facility] ([place]) Comment on above: Performed By: #### N GPCR1, CTPCR #### [place] [address] Basophils/100 WBC (Bld) 0.1 % Normal 0.0-2.5 [facility] ([place]) Comment on above: Performed By: #### N GPCR1, CTPCR #### [facility] [address] [place], [place] [address] Eosinophil, Absolute 0.2 10 3/mcL Normal 0.0-0.4 [facility] ([place]) Comment on above: Performed By: #### N GPCR1, CTPCR #### [address] [address] Eosinophils/100 WBC (Bld) 1.5 % Normal 0.0-7.0 [facility] ([place]) Comment on above: Performed By: #### N GPCR1, CTPCR #### [address] [address] Lymphocyte, Absolute 2.4 10 3/mcL Normal 0.8-3.9 [facility] ([place]) Comment on above: Performed By: #### N GPCR1, CTPCR #### [address] [address] Lymphocytes/100 WBC (Bld) 21.2 % Normal 10.0-50.0 [facility] ([place]) Comment on above: Performed By: #### N GPCR1, CTPCR #### [address] [address] Monocyte, Absolute 0.6 10 3/mcL Normal 0.2-1.0 [facility] ([place]) Comment on above: Performed By: #### N GPCR1, CTPCR #### [address] [address] Monocytes/100 WBC (Bld) 5.3 % Normal 1.7-13.0 [facility] ([place]) Comment on above: Performed By: #### N GPCR1, CTPCR #### [address] [address] Neutrophils/100 WBC (Bld) 71.9 % Normal 37.0-80.0 [facility] ([place]) Comment on above: Performed By: #### N GPCR1, CTPCR #### [address] [address] .NEUABSon 06-14-2023 Neutrophil, Absolute 8.2 10 3/mcL High 2.9-6.2 [facility] ([place]) Comment on above: Performed By: #### N GPCR1, CTPCR #### [address] [address] ABO/Rh (Gel)on 06-14-2023 ABO/Rh Interp Negative Invalid Interpretation Code [facility] ([place]) Comment on above: Performed By: #### N GPCR1, CTPCR #### [place] [id number] ABS (Gel)on 06-14-2023 ABSC Interp (Gel) Negative Normal [facility] ([place]) Comment on above: Performed By: #### N GPCR1, CTPCR #### [place] [id number] CBCon 06-14-2023 Erythrocyte distribution width (RBC) [Ratio] 13.7 % Normal 11.5-14.5 [facility] ([place]) Comment on above: Performed By: #### N GPCR1, CTPCR #### [place] [address] Hematocrit (Bld) [Volume fraction] 36.5 % Low 37.0-47.0 [facility] ([place]) Comment on above: Performed By: #### N GPCR1, CTPCR #### [place] [address] Hgb 12.7 G/dL Normal 12.0-16.0 [facility] ([place]) Comment on above: Performed By: #### N GPCR1, CTPCR #### [place] [address] MCH (RBC) [Entitic mass] 28.4 pg Normal 27.0-31.2 [facility] ([place]) Comment on above: Performed By: #### N GPCR1, CTPCR #### [place] [address] MCHC 34.6 G/dL Normal 33.0-37.0 [facility] ([place]) Comment on above: Performed By: #### N GPCR1, CTPCR #### [place] [address] MCV (RBC) [Entitic vol] 82.1 fL Normal 80.0-94.0 [facility] ([place]) Comment on above: Performed By: #### N GPCR1, CTPCR #### [address] [address] Platelet 249 10 3/mcL Normal 130-400 [facility] ([place]) Comment on above: Performed By: #### N GPCR1, CTPCR #### [address] [address] Platelet mean volume (Bld) [Entitic vol] 8.2 fL Normal 7.4-10.4 [facility] ([place]) Comment on above: Performed By: #### N GPCR1, CTPCR #### [place] [address] RBC 4.45 10 6/mcL Normal 4.20-5.40 [facility] ([place]) Comment on above: Performed By: #### N GPCR1, CTPCR #### [address] [address] WBC 11.4 10 3/mcL High 4.6-10.8 [facility] ([place]) Comment on above: Performed By: #### N GPCR1, CTPCR #### [address] [address] HBSAGon 06-14-2023 Hep B Surf Ag Non-Reactive Normal Non-Reacti ve [facility] ([place]) Comment on above: Performed By: #### N GPCR1, CTPCR #### [address] [address] LABORATORYOrdered By: Cynthia Tena on 06-14-2023 ABO and Rh group Nom (Bld) Blood group O Rh(D) negative Invalid Interpretation Code AO BB Auto SS Blood group antibody screen Ql Negative ABSC (06/14/23 12:27 PM) Normal AO BB Auto SS LABORATORYOrdered By: SYSTEM SYSTEM on 06-14-2023 Basophil, Absolute 0.0 103/mcL Normal 0.0 - 0.2 10^3/mcL AO Workflow SS Basophils/100 WBC (Bld) 0.1 % Normal 0.0 - 2.5 % AO Workflow SS Eosinophil, Absolute 0.2 103/mcL Normal 0.0 - 0 .4 10^3/mcL AO Workflow SS Eosinophils/100 WBC (Bld) 1.5 % Normal 0.0 - 7.0 % AO Workflow SS Erythrocyte distribution width (RBC) [Ratio] 13.7 % Normal 11.5 - 14.5 % AO Workflow SS HBV surface Ag IA Ql Non-Reactive (06/14/23 9:21 AM) Normal Non-Reacti ve AH ADM SS Hematocrit (Bld) [Volume fraction] 36.5 % Low 37.0 - 47.0 % AO Workflow SS Hemoglobin (Bld) [Mass/Vol] 12.7 G/dL Normal 12.0 - 16.0 G/dL AO Workflow SS Lymphocyte, Absolute 2.4 103/mcL Normal 0.8 - 3 .9 10^3/mcL AO Workflow SS Lymphocytes/100 WBC (Bld) 21.2 % Normal 10.0 - 50.0 % AO Workflow SS MCH (RBC) [Entitic mass] 28.4 pg Normal 27.0 - 31.2 pg AO Workflow SS MCHC 34.6 G/dL Normal 33.0 - 37.0 G/dL AO Workflow SS MCV (RBC) [Entitic vol] 82.1 fL Normal 80.0 - 94.0 fL AO Workflow SS Monocyte, Absolute 0.6 103/mcL Normal 0.2 - 1.0 10^3/mcL AO Workflow SS Monocytes/100 WBC (Bld) 5.3 % Normal 1.7 - 13.0 % AO Workflow SS Neutrophil, Absolute 8.2 103/mcL High 2.9 - 6 .2 10^3/mcL AO Workflow SS Neutrophils/100 WBC (Bld) 71.9 % Normal 37.0 - 80.0 % AO Workflow SS Platelet mean volume (Bld) [Entitic vol] 8.2 fL Normal 7.4 - 10.4 fL AO Workflow SS Platelets (Bld) [#/Vol] 249 103/mcL Normal 130 - 400 10^3/mcL AO Workflow SS RBC (Bld) [#/Vol] 4.45 106/mcL Normal 4.20 - 5.40 10^6/mcL AO Workflow SS WBC (Bld) [#/Vol] 11.4 103/mcL High 4.6 - 10.8 10^3/mcL AO Workflow SS LABORATORYOrdered By: Jose Lewis on 06-14-2023 C. trachomatis DNA EVIN+probe Ql (Unsp spec) Negative 2 (06/14/23 9:04 AM) Normal Negative AH Auto Viro/Sero SS Comment on above: Interpretive Data: M olecular (PCR) assay performed on the [employer] 4800 system. C. trachomatis DNA EVIN+probe Ql (Unsp spec) C. trachomatis DNA not detected. Specimen is presumptive negative forC. trachomatis.A negative result does not preclude C. trachomatis infection becauseresults depend on adequate specimen collection, absence of inhibitors,and sufficient DNA to be detected. Normal See CT Interp N Auto Viro/Sero SS N. gonorrhoeae DNA EVIN+probe Ql (Unsp spec) Negative 1 (06/14/23 9:04 AM) Normal Negative Auto Viro/Sero SS Comment on above: Interpretive Data: M olecular (PCR) assay performed on the [employer] 4800 System. N. gonorrhoeae DNA EVIN+probe Ql (Unsp spec) N. gonorrhoeae DNA not detected. Specimen is presumptive negative forN. gonorrhoeae. A negative result does not preclude Neisseria gonorrhoeaeinfection because results depend on adequate specimen collection, absenceof inhibitors, and sufficient DNA to be detected. Normal See NG Interp N Auto Viro/Sero SS Laboratory - Specimen inform ationOrdered By: Aenl Lewis on 06-14-2023 Specimen source Nom (Unsp spec) Vaginal (06/14/23 9:04 AM) Normal Auto Viro/Sero SS HCGQon 04-16-2023 hCG, quantitative 5156.0 mIU/mL Normal [facility] ([place]) Comment on above: Result Comment: HCG Levels with Gestation age: 0.2- 1 week. . . . . . . . . . . . . . . 5 - 50 mIU/mL 1-2 weeks . . . . . . . . . . . . . . . 50 - 500 mIU/mL 2-3 weeks . . . . . . . . . . . . . . . 100 - 5,000 mIU/ml 3-4 weeks . . . . . . . . . . . . . . . 500 - 10,000 mIU/mL 4-5 weeks . . . . . . . . . . . . . . . 1,000 - 5,000 mIU/mL 5-6 weeks . . . . . . . . . . . . . . . 10,000 - 100,000 mIU/mL 6-8 weeks . . . . . . . . . . . . . . . 15,000 - 200,000 mIU/mL 2-3 months . . . . . . . . . . . . . . . 10,000 - 100,000 mIU/mL Performed By: #### N GPCR1, CTPCR #### [place] [address] LABORATORYOrdered By: SYSTEM SYSTEM on 04-16-2023 HCG Qn 5156.0 m[IU]/mL Invalid Interpretation Code AO ADM SS Comment on above: Interpretive Data: H CG Levels with Gestation age: 0.2- 1 week. . . . . . . . . . . . . . . 5 - 50 mIU/mL 1-2 weeks . . . . . . . . . . . . . . . 50 - 500 mIU/mL 2-3 weeks . . . . . . . . . . . . . . . 100 - 5,000 mIU/ml 3-4 weeks . . . . . . . . . . . . . . . 500 - 10,000 mIU/mL 4-5 weeks . . . . . . . . . . . . . . . 1,000 - 5,000 mIU/mL 5-6 weeks . . . . . . . . . . . . . . . 10,000 - 100,000 mIU/mL 6-8 weeks . . . . . . . . . . . . . . . 15,000 - 200,000 mIU/mL 2-3 months . . . . . . . . . . . . . . . 10,000 - 100,000 mIU/mL HCGQon 04-12-2023 hCG, quantitative 2428.8 mIU/mL Normal [facility] ([place]) Comment on above: Result Comment: HCG Levels with Gestation age: 0.2- 1 week. . . . . . . . . . . . . . . 5 - 50 mIU/mL 1-2 weeks . . . . . . . . . . . . . . . 50 - 500 mIU/mL 2-3 weeks . . . . . . . . . . . . . . . 100 - 5,000 mIU/ml 3-4 weeks . . . . . . . . . . . . . . . 500 - 10,000 mIU/mL 4-5 weeks . . . . . . . . . . . . . . . 1,000 - 5,000 mIU/mL 5-6 weeks . . . . . . . . . . . . . . . 10,000 - 100,000 mIU/mL 6-8 weeks . . . . . . . . . . . . . . . 15,000 - 200,000 mIU/mL 2-3 months . . . . . . . . . . . . . . . 10,000 - 100,000 mIU/mL Performed By: #### N GPCR1, CTPCR #### [place] [address] LABORATORYOrdered By: SYSTEM SYSTEM on 04-12-2023 HCG Qn 2428.8 m[IU]/mL Invalid Interpretation Code AO ADM SS Comment on above: Interpretive Data: H CG Levels with Gestation age: 0.2- 1 week. . . . . . . . . . . . . . . 5 - 50 mIU/mL 1-2 weeks . . . . . . . . . . . . . . . 50 - 500 mIU/mL 2-3 weeks . . . . . . . . . . . . . . . 100 - 5,000 mIU/ml 3-4 weeks . . . . . . . . . . . . . . . 500 - 10,000 mIU/mL 4-5 weeks . . . . . . . . . . . . . . . 1,000 - 5,000 mIU/mL 5-6 weeks . . . . . . . . . . . . . . . 10,000 - 100,000 mIU/mL 6-8 weeks . . . . . . . . . . . . . . . 15,000 - 200,000 mIU/mL 2-3 months . . . . . . . . . . . . . . . 10,000 - 100,000 mIU/mL HCGQon 03-14-2023 hCG, quantitative <1.0 Normal [facility] ([place]) Comment on above: Result Comment: HCG Levels with Gestation age: 0.2- 1 week. . . . . . . . . . . . . . . 5 - 50 mIU/mL 1-2 weeks . . . . . . . . . . . . . . . 50 - 500 mIU/mL 2-3 weeks . . . . . . . . . . . . . . . 100 - 5,000 mIU/ml 3-4 weeks . . . . . . . . . . . . . . . 500 - 10,000 mIU/mL 4-5 weeks . . . . . . . . . . . . . . . 1,000 - 5,000 mIU/mL 5-6 weeks . . . . . . . . . . . . . . . 10,000 - 100,000 mIU/mL 6-8 weeks . . . . . . . . . . . . . . . 15,000 - 200,000 mIU/mL 2-3 months . . . . . . . . . . . . . . . 10,000 - 100,000 mIU/mL Performed By: #### N GPCR1, CTPCR #### [place] [address] LABORATORYOrdered By: SYSTEM SYSTEM on 03-14-2023 HCG Qn mIU/mL Invalid Interpretation Code AO ADM SS Comment on above: Interpretive Data: H CG Levels with Gestation age: 0.2- 1 week. . . . . . . . . . . . . . . 5 - 50 mIU/mL 1-2 weeks . . . . . . . . . . . . . . . 50 - 500 mIU/mL 2-3 weeks . . . . . . . . . . . . . . . 100 - 5,000 mIU/ml 3-4 weeks . . . . . . . . . . . . . . . 500 - 10,000 mIU/mL 4-5 weeks . . . . . . . . . . . . . . . 1,000 - 5,000 mIU/mL 5-6 weeks . . . . . . . . . . . . . . . 10,000 - 100,000 mIU/mL 6-8 weeks . . . . . . . . . . . . . . . 15,000 - 200,000 mIU/mL 2-3 months . . . . . . . . . . . . . . . 10,000 - 100,000 mIU/mL HCGQon 03-08-2023 hCG, quantitative 5.2 mIU/mL Normal [facility] ([place]) Comment on above: Result Comment: HCG Levels with Gestation age: 0.2- 1 week. . . . . . . . . . . . . . . 5 - 50 mIU/mL 1-2 weeks . . . . . . . . . . . . . . . 50 - 500 mIU/mL 2-3 weeks . . . . . . . . . . . . . . . 100 - 5,000 mIU/ml 3-4 weeks . . . . . . . . . . . . . . . 500 - 10,000 mIU/mL 4-5 weeks . . . . . . . . . . . . . . . 1,000 - 5,000 mIU/mL 5-6 weeks . . . . . . . . . . . . . . . 10,000 - 100,000 mIU/mL 6-8 weeks . . . . . . . . . . . . . . . 15,000 - 200,000 mIU/mL 2-3 months . . . . . . . . . . . . . . . 10,000 - 100,000 mIU/mL Performed By: #### N GPCR1, CTPCR #### [place] [address] CTPCRon 01-07-2023 C. trachomatis Interp Normal See CT Interp N [facility] ([place]) Comment on above: Result Comment: C. t rachomatis DNA not detected. Specimen is presumptive negative for C. trachomatis. A negative result does not preclude C. trachomatis infection because results depend on adequate specimen collection, absence of inhibitors, and sufficient DNA to be detected. See CT Interp N Performed By: #### N GPCR1, CTPCR #### [address] [address] C.trachomatis PCR Negative Normal Negative [facility] ([place]) Comment on above: Result Comment: Mole arronar (PCR) assay performed on the [employer] 4800 system. Performed By: #### N GPCR1, CTPCR #### [facility] [address] [place] [address] Chlam Source Cervix Normal [facility] ([place]) Comment on above: Performed By: #### N GPCR1, CTPCR #### [address] [address] [id number] 01-07-2023 GC PCR Source Cervix Normal [facility] ([place]) Comment on above: Performed By: #### N GPCR1, CTPCR #### [address] [address] N. gonorrhoeae (PCR) Negative Normal Negative [facility] ([place]) Comment on above: Result Comment: Mole cular (PCR) assay performed on the [employer] 48[employer] System. Performed By: #### N GPCR1, CTPCR #### [address] [address] N. gonorrhoeae Interp Normal See NG Interp N [facility] ([place]) Comment on above: Result Comment: N. g onorrhoeae DNA not detected. Specimen is presumptive negative for N. gonorrhoeae. A negative result does not preclude Neisseria gonorrhoeae infection because results depend on adequate specimen collection, absence of inhibitors, and sufficient DNA to be detected. See NG Interp N Performed By: #### N GPCR1, CTPCR #### [place] [address] RPRon 01-05-2023 Reagin Ab RPR Ql (S) Non-Reactive Normal Non-[place] cti ve [facility] ([place]) Comment on above: Result Comment: The RPR test is a non-treponemal assay useful as an aid in the diagnosis of primary and secondary syphilis. It converts to positive generally within 2 weeks after the appearance of a lesion. This test is also useful for monitoring response to antibiotic therapy. A positive RPR screening test will be followed by the FTA ABS test. False positive RPR tests may occur in 1) patients with underlying autoimmune disorders, 2) elderly patients, 3) , and 4) other conditions with abnormal serum globulins. Performed By: #### H CV1, RPR, HBSAG #### [place] [id number] [place] [address] HBSAGon 01-04-2023 Hep B Surf Ag Non-Reactive Normal Non-Reacti [facility] ([place]) Comment on above: Performed By: #### H CV1, RPR, HBSAG #### [place] [id number] HCVon 01-04-2023 Hep C Ab Non-Reactive Normal Non-Reacti [facility] ([place]) Comment on above: Performed By: #### H CV1, RPR, HBSAG #### [place] [address] Hep C Ab Int Normal [facility] ([place]) Comment on above: Result Comment: Nonr eactive: Samples with a value < 0.80 are considered nonreactive (negative) for antibodies to HCV. A negative test result does not exclude the possibility of exposure to or infection with HCV. HCV antibodies may be undetectable in some stages of the infection and in some clinical conditions. See Interp Performed By: #### H CV1, RPR, HBSAG #### [place] [address] HIVon 01-04-2023 HIV 1/2 Ab Non-Reactive Normal Non-Reacti [facility] ([place]) Comment on above: Result Comment: Spec hayley is negative for anti-HIV-1 and anti-HIV-2. Performed By: #### N GPCR1, CTPCR #### [place] [address] [facility] C[facility] Telephone ([id number]) DORY HENDERSON ([id number]) 1985 F Date Time Provider Department 12/14/22 [facility] PROVIDER AGGENS4 During your visit today, we recorded the following information about you: Flory Timmons 12/14/2022 11:25 AM Signed Fax PCP ref call into the program, Spoke to PT- sent seminar needs complete by 12/29/22 Allergies As of Date: 12/14/2022 Noted Allergy Reaction SEROQUEL (QUETIAPINE) 04/21/2019 4 - Hives SULFA (SULFONAMIDE ANTIBIOTICS) 04/21/2019 2 - Rash Date Reviewed: 04/21/2019 Reviewed by: Richelle Bowen Ma - Fully Assessed Reason for Visit: External Referrals/resources [909] Problem List As Of Date: 12/14/2022 (None) Encounter Status:Closed by FLORY TIMMONS on 12/14/22 Normal [facility] LABORATORYOrdered By: SYSTEM SYSTEM on 08-03-2022 E2 [Mass/Vol] 88.90 pg/mL Invalid Interpretation Code ADM SS Follitropin Qn 5.9 m[IU]/mL Invalid Interpretation Code ADM SS Free T3 [Mass/Vol] 3.06 pg/mL Invalid Interpretation Code 2.30 - 4.00 pg/mL AO ADM SS Free T4 [Mass/Vol] 0.98 ng/dL Invalid Interpretation Code 0.76 - 1.46 ng/dL AO ADM SS Lutropin Qn 13.9 m[IU]/mL Invalid Interpretation Code ADM SS Progesterone [Mass/Vol] 0.5 ng/mL Invalid Interpretation Code ADM SS Testosterone [Mass/Vol] 16.60 ng/dL Invalid Interpretation Code ADM SS TSH Qn 1.80 m[IU]/L Invalid Interpretation Code 0.36 - 3.74 mcIU/mL AO ADM SS Absolute lymphocyte countOrd ered By: Dr. Zazueta on 05-17-2022 Lymphocytes Auto (Unsp spec) [#/Vol] 0.42 10*3/uL 0.83-4.51 [facility] Basophil percentageOrdered B y: Dr. Zazueta on 05-17-2022 Basophils/100 WBC (Bld) 0.2 % 0-1 [facility] Chloride [Moles/Vol] 98 mmol/L 98-107 [facility] Eosinophils/100 WBC (Bld) 0.1 % 0-5 [facility] Glucose [Mass/Vol] 190 mg/dL 74-106 [facility] Comment on above: Fasting Glucose resu lt greater than or equal to 126 mg/dL suggests DIABETES MELLITUS per A.D.A. criteria. Neutrophils (Bld) [#/Vol] 15.4 10*3/uL 2.0-7.7 [facility] Neutrophils/100 WBC (Bld) 93.9 % 47-70 [facility] Potassium [Moles/Vol] 3.6 mmol/L 3.5-5.1 [facility] Sodium [Moles/Vol] 135 mmol/L 136-145 [facility] WBC (Bld) [#/Vol] 16.4 10*3/uL 4.4-11.0 [facility] Blood erythrocytes count (nu mber/volume)Ordered By: Dr. Zazueta on 05-17-2022 RBC (Bld) [#/Vol] 5.81 10*6/uL 4.2-5.4 [facility] Blood hemoglobin measurement (mass/volume)Ordered By: Dr. Zazueta on 05-17-2022 Hemoglobin (Bld) [Mass/Vol] 15.1 g/dL 12.0-15.0 [facility] Blood lymphocytes/100 leukoc ytesOrdered By: Dr. Zazueta on 05-17-2022 Lymphocytes/100 WBC (Bld) 2.6 % 19-41 [facility] Blood monocytes/100 leukocyt esOrdered By: Dr. Zazueta on 05-17-2022 Monocytes/100 WBC (Bld) 2.3 % 0-10 [facility] Blood platelet mean volumeOr dered By: Dr. Zazueta on 05-17-2022 Platelet mean volume (Bld) [Entitic vol] 10.2 fL 6.2-12.0 [facility] Determination of erythrocyte mean corpuscular volume (MCV)Ordered By: Dr. Zazueta on 05-17-2022 MCV (RBC) [Entitic vol] 79.9 fL 81-99 [facility] Hematocrit Auto (Bld) [Volum e fraction]Ordered By: Dr. Zazueta on 05-17-2022 Hematocrit (Bld) [Volume fraction] 46.4 % 37-47 [facility] Laboratory - Chemistry and C hemistry - challengeOrdered By: Dr. Zazueta on 05-17-2022 CO2 [Moles/Vol] 26.0 mmol/L 21.0-32.0 [facility] Urea nitrogen/Creatinine [Mass ratio] 17.7 mg/mg 10-20 [facility] Laboratory - Hematology and Cell countsOrdered By: Dr. Zazueta on 05-17-2022 Erythrocyte distribution width (RBC) [Entitic vol] 39.9 fL 35.1-43.9 [facility] Erythrocyte distribution width (RBC) [Ratio] 13.9 % 11.6-14.6 [facility] Immature granulocytes/100 WBC (Bld) 0.900 % 0.0-0.9 [facility] Comment on above: IG% - Immature Granu locytes (promyelocytes, myelocytes and metamyelocytes) > 1% indicates that a LEFT SHIFT is Present. MCH (RBC) [Entitic mass] 26.0 pg 27.0-32.0 [facility] Nucleated RBC/100 WBC (Bld) [Ratio] 0 % 0-5 [facility] MCHC Auto (RBC) [Mass/Vol]Or dered By: Dr. Zazueta on 05-17-2022 MCHC (RBC) [Mass/Vol] 32.5 g/dL 32-36 [facility] No Panel InformationOrdered By: Dr. Zazueta on 05-17-2022 Estimated Creatinine Clearance Calc 85.83 ml/min [facility] Estimated GFR (MDRD) Amer 106 mL/min >60 [facility] Comment on above: GFR Calc Estimated GFR (MDRD) Non-Af Amer 88 mL/min >60 [facility] Comment on above: Non- GFR Calc Platelets bldOrdered By: Dr. Zazueta on 05-17-2022 Platelets (Bld) [#/Vol] 331 10*3/uL 150-450 [facility] Serum or plasma calcium chayito urement (mass/volume)Ordered By: Dr. Zazueta on 05-17-2022 Calcium [Mass/Vol] 9.2 mg/dL 8.5-10.1 [facility] Serum or plasma creatinine m easurement (mass/volume)Ordered By: Dr. Zazueta on 05-17-2022 Creatinine [Mass/Vol] 0.79 mg/dL 0.55-1.02 [facility] Comment on above: The validity of the calculated GFR & GFRAA in patients over 70 years has not been determined. Clinical correlation is essential. Serum or plasma urea nitroge n measurement (mass/volume)Ordered By: Dr. Zazueta on 05-17-2022 Urea nitrogen [Mass/Vol] 14 mg/dL 09-19 [facility] Thin prep Papanicolaou smear with manual screeningOrdered By: Dr. Zazueta on 05-17-2022 Thin prep Papanicolaou smear with manual screening 07-17 [facility] Laboratory - Chemistry and C hemistry - challengeon 03-23-2022 HCG ( test) Ql (U) Negative [facility] Bilirubin Ql (U) Negative [facility] Glucose Ql (U) Negative [facility] Ketones Ql (U) Negative [facility] pH (U) 5.0 [pH] [facility] Specific gravity (U) [Rel density] 1.005 [facility] Urobilinogen (U) [Mass/Vol] Negative [facility] Laboratory - Hematology and Cell countson 03-23-2022 Hemoglobin Ql (U) Negative [facility] Laboratory - Specimen inform ationon 03-23-2022 Clarity (U) Clear [facility] Color (U) Yellow [facility] Laboratory - Urinalysison Nitrite Ql (U) Negative [facility] Protein Ql (U) Negative [facility] No Panel Informationon 03-23 Urine Leukocytes Negatve [facility] Urine Non-Hemolyzed Blood Negative [facility] LABORATORYOrdered By: Daisha Polanco on 01-10-2022 C. trachomatis DNA EVIN+probe Ql (Unsp spec) Negative (01/10/22 4:28 PM) Invalid Interpretation Code Negative Auto Viro/Sero SS C. trachomatis DNA EVIN+probe Ql (Unsp spec) C. trachomatis DNA not detected. Specimen is presumptive negative forC. trachomatis.A negative result does not preclude C. trachomatis infection becauseresults depend on adequate specimen collection, absence of inhibitors,and sufficient DNA to be detected. Invalid Interpretation Code See CT Interp N AH Auto Viro/Sero SS N. gonorrhoeae DNA EVIN+probe Ql (Unsp spec) Negative (01/10/22 4:28 PM) Invalid Interpretation Code Negative AH Auto Viro/Sero SS N. gonorrhoeae DNA EVIN+probe Ql (Unsp spec) N. gonorrhoeae DNA not detected. Specimen is presumptive negative forN. gonorrhoeae. A negative result does not preclude Neisseria gonorrhoeaeinfection because results depend on adequate specimen collection, absenceof inhibitors, and sufficient DNA to be detected. Invalid Interpretation Code See NG Interp N AH Auto Viro/Sero SS Laboratory - Specimen inform ationOrdered By: Daisha Polanco on 01-10-2022 Specimen source Nom (Unsp spec) Genital Female (01/10/22 4:28 PM) Invalid Interpretation Code AH Auto Viro/Sero SS LABORATORYOrdered By: Daisha Polanco on 12-01-2021 C. trachomatis DNA EVIN+probe Ql (Unsp spec) Positive *ABN* (12/01/21 3:28 PM) Invalid Interpretation Code Negative Auto Viro/Sero SS C. trachomatis DNA EVIN+probe Ql (Unsp spec) DNA detection by non-culture technique (PCR). Sensitivity testing notavailable with this method.This organism causes a reportable diseaseResults have been reported to the [place] [facility] Invalid Interpretation Code See CT Interp N AH Auto Viro/Sero SS N. gonorrhoeae DNA EVIN+probe Ql (Unsp spec) Negative (12/01/21 3:28 PM) Invalid Interpretation Code Negative Auto Viro/Sero SS N. gonorrhoeae DNA EVIN+probe Ql (Unsp spec) N. gonorrhoeae DNA not detected. Specimen is presumptive negative forN. gonorrhoeae. A negative result does not preclude Neisseria gonorrhoeaeinfection because results depend on adequate specimen collection, absenceof inhibitors, and sufficient DNA to be detected. Invalid Interpretation Code See NG Interp N AH Auto Viro/Sero SS Laboratory - Specimen inform ationOrdered By: Daisha Polanco on 12-01-2021 Specimen source Nom (Unsp spec) Cervix (12/01/21 3:28 PM) Invalid Interpretation Code AH Auto Viro/Sero SS Basophil percentageon 2021 Bilirubin [Mass/Vol] 0.50 mg/dL 0.20-1.00 [facility] Work Phone: Comment on above: For patients on eltr ombopag therapy, use of Dimension [place] TBIL is not recommended. Chloride [Moles/Vol] 104 mmol/L 98-107 [facility] Work Phone: Cholesterol [Mass/Vol] 189 mg/dL <200 [facility] Work Phone: Comment on above: <200 mg/dL Desirable 200-240 mg/dL Borderline >240 mg/dL High Risk Glucose [Mass/Vol] 135 mg/dL 74-106 [facility] Work Phone: Comment on above: Fasting Glucose resu lt greater than or equal to 126 mg/dL suggests DIABETES MELLITUS per A.D.A. criteria. Potassium [Moles/Vol] 4.0 mmol/L 3.5-5.1 [facility] Work Phone: Protein [Mass/Vol] 8.1 g/dL 6.4-8.2 [facility] Work Phone: Sodium [Moles/Vol] 138 mmol/L 136-145 [facility] Work Phone: Triglyceride [Mass/Vol] 150 mg/dL <199 [facility] Work Phone: Comment on above: The drugs N-Acetylcy steine and Metamizole may falsely depress this assay.Serum Triglycerides Reference Interval Normal <150 mg/dL Borderline high 150 - 199 mg/dL High 200 - 499 mg/dL Very High > or = 500 mg/dL Direct bilirubinon 2 Bilirubin.direct [Mass/Vol] 0.07 mg/dL 0.00-0.30 [facility] Work Phone: Laboratory - Chemistry and C hemistry - challengeon 11-25-2021 ALP [Catalytic activity/Vol] 111 U/L 45-117 [facility] Work Phone: ALT [Catalytic activity/Vol] 30 U/L 13-56 [facility] Work Phone: CO2 [Moles/Vol] 27.0 mmol/L 21.0-32.0 [facility] Work Phone: Globulin (S) [Mass/Vol] 4.5 g/dL 2.2-4.2 [facility] Work Phone: Urea nitrogen/Creatinine [Mass ratio] 13.8 mg/mg 10-20 [facility] Work Phone: No Panel Informationon 11-25 Estimated GFR (MDRD) Amer 95 mL/min >60 [facility] Work Phone: Comment on above: GFR Calc Estimated GFR (MDRD) Non-Af Amer 79 mL/min >60 [facility] Work Phone: Comment on above: Non- GFR Calc Serum or plasma albumin chayito urement (mass/volume)on 11-25-2021 Albumin [Mass/Vol] 3.6 g/dL 3.2-5.0 [facility] Work Phone: Serum or plasma calcium chayito urement (mass/volume)on 11-25-2021 Calcium [Mass/Vol] 9.2 mg/dL 8.5-10.1 [facility] Work Phone: Serum or plasma cholesterol in HDL measurement (mass/volume)on 11-25-2021 Cholesterol in HDL [Mass/Vol] 39 mg/dL >40 [facility] Work Phone: Comment on above: The drugs N-Acetylcy steine and Metamizole may falsely depress this assay. Reference Range HDL <40 mg/dL Low HDL Cholesterol HDL >or= 60 mg/dL High HDL Cholesterol Serum or plasma cholesterol in VLDL measurement (mass/volume)on 11-25-2021 Cholesterol in VLDL [Mass/Vol] 30 mg/dL 5-40 [facility] Work Phone: Serum or plasma creatinine m easurement (mass/volume)on 11-25-2021 Creatinine [Mass/Vol] 0.87 mg/dL 0.55-1.02 [facility] Work Phone: Comment on above: The validity of the calculated GFR & GFRAA in patients over 70 years has not been determined. Clinical correlation is essential. Serum or plasma low density lipoprotein (LDL) cholesterol measurement (mass/volume)on 11-25-2021 Cholesterol in LDL [Mass/Vol] 120 mg/dL 0-130 [facility] Work Phone: Serum or plasma urea nitroge n measurement (mass/volume)on 11-25-2021 Urea nitrogen [Mass/Vol] 12 mg/dL 7-18 [facility] Work Phone: Thin prep Papanicolaou smear with manual screeningon 11-25-2021 Thin prep Papanicolaou smear with manual screening 10 U/L 15-37 [facility] Work Phone: Thin prep Papanicolaou smear with manual screening 7 5-15 [facility] Work Phone: LABORATORYOrdered By: Dian Damico on 04-12-2021 Basophil, Absolute 0.00 103/mcL Invalid Interpretation Code 0.00 - 0.19 10^3/mcL AO Auto Heme SS Basophils/100 WBC (Bld) 0.2 % Invalid Interpretation Code 0.0 - 2.5 % AO Auto Heme SS Eosinophil, Absolute 0.00 103/mcL Invalid Interpretation Code 0.00 - 0.40 10^3/mcL AO Auto Heme SS Eosinophils/100 WBC (Bld) 0.1 % Invalid Interpretation Code 0.0 - 7.0 % AO Auto Heme SS Erythrocyte distribution width (RBC) [Ratio] 14.6 % Invalid Interpretation Code 11.5 - 14.5 % AO Auto Heme SS Hematocrit (Bld) [Volume fraction] 26.4 % Invalid Interpretation Code 37.0 - 47.0 % AO Auto Heme SS Hemoglobin (Bld) [Mass/Vol] 8.8 G/dL Invalid Interpretation Code 12.0 - 16.0 G/dL AO Auto Heme SS Lymphocyte, Absolute 1.40 103/mcL Invalid Interpretation Code 0.77 - 3.85 10^3/mcL AO Auto Heme SS Lymphocytes/100 WBC (Bld) 10.0 % Invalid Interpretation Code 10.0 - 50.0 % AO Auto Heme SS MCH (RBC) [Entitic mass] 26.0 pg Invalid Interpretation Code 27.0 - 31.2 pg AO Auto Heme SS MCHC (RBC) [Mass/Vol] 33.3 G/dL Invalid Interpretation Code 33.0 - 37.0 G/dL AO Auto Heme SS MCV (RBC) [Entitic vol] 78.1 fL Invalid Interpretation Code 80.0 - 94.0 fL AO Auto Heme SS Monocyte, Absolute 0.60 103/mcL Invalid Interpretation Code 0.15 - 1.00 10^3/mcL AO Auto Heme SS Monocytes/100 WBC (Bld) 3.9 % Invalid Interpretation Code 1.7 - 13.0 % AO Auto Heme SS Neutrophil, Absolute 12.40 103/mcL Invalid Interpretation Code 2.85 - 6.16 10^3/mcL AO Auto Heme SS Neutrophils/100 WBC (Bld) 85.8 % Invalid Interpretation Code 37.0 - 80.0 % AO Auto Heme SS Platelet mean volume (Bld) [Entitic vol] 8.3 fL Invalid Interpretation Code 7.4 - 10.4 fL AO Auto Heme SS Platelets (Bld) [#/Vol] 236 103/mcL Invalid Interpretation Code 130 - 400 10^3/mcL AO Auto Heme SS RBC (Bld) [#/Vol] 3.38 106/mcL Invalid Interpretation Code 4.20 - 5.40 10^6/mcL AO Auto Heme SS WBC (Bld) [#/Vol] 14.40 103/mcL Invalid Interpretation Code 4.60 - 10.80 10^3/mcL AO Auto Heme SS LABORATORYOrdered By: Lucy Vizcaino on 04-12-2021 Hematocrit (Bld) [Volume fraction] 25.5 % Invalid Interpretation Code 37.0 - 47.0 % AO Auto Heme SS Hemoglobin (Bld) [Mass/Vol] 8.6 G/dL Invalid Interpretation Code 12.0 - 16.0 G/dL AO Auto Heme SS LABORATORYOrdered By: Osmel Brewer on 04-11-2021 Glucose [Mass/Vol] 80 mg/dL Invalid Interpretation Code 70 - 110 mg/dL [facility] Work Phone: LABORATORYOrdered By: Mariaelena Benavides on 04-11-2021 ABO/Rh Interp Negative Invalid Interpretation Code AO BB SS Antibody Screen Gel Negative ABSC (04/11/21 9:41 AM) Invalid Interpretation Code AO BB SS Appearance (U) Slightly Cloudy *ABN* (04/11/21 9:41 AM) Invalid Interpretation Code Clear AO Auto Urine SS Bacteria LM.HPF (Urine sed) [#/Area] Trace /HPF Invalid Interpretation Code AO Auto Urine SS Basophil, Absolute 0.00 103/mcL Invalid Interpretation Code 0.00 - 0.19 10^3/mcL AO Auto Heme SS Basophils/100 WBC (Bld) 0.2 % Invalid Interpretation Code 0.0 - 2.5 % AO Auto Heme SS Bilirubin Ql (U) Negative (04/11/21 9:41 AM) Invalid Interpretation Code Negative AO Auto Urine SS Color (U) Yellow (04/11/21 9:41 AM) Invalid Interpretation Code AO Auto Urine SS Eosinophil, Absolute 0.10 103/mcL Invalid Interpretation Code 0.00 - 0.40 10^3/mcL AO Auto Heme SS Eosinophils/100 WBC (Bld) 1.0 % Invalid Interpretation Code 0.0 - 7.0 % AO Auto Heme SS Erythrocyte distribution width (RBC) [Ratio] 14.6 % Invalid Interpretation Code 11.5 - 14.5 % AO Auto Heme SS Glucose Test strip (U) [Mass/Vol] Negative Invalid Interpretation Code Negativemg /dL AO Auto Urine SS Hematocrit (Bld) [Volume fraction] 33.2 % Invalid Interpretation Code 37.0 - 47.0 % AO Auto Heme SS Hemoglobin (Bld) [Mass/Vol] 10.8 G/dL Invalid Interpretation Code 12.0 - 16.0 G/dL AO Auto Heme SS Hemoglobin Auto test strip (U) [Mass/Vol] Negative (04/11/21 9:41 AM) Invalid Interpretation Code Negative AO Auto Urine SS Ketones Ql (U) Negative Invalid Interpretation Code Negativemg /dL AO Auto Urine SS Lymphocyte, Absolute 2.00 103/mcL Invalid Interpretation Code 0.77 - 3.85 10^3/mcL AO Auto Heme SS Lymphocytes/100 WBC (Bld) 17.4 % Invalid Interpretation Code 10.0 - 50.0 % AO Auto Heme SS MCH (RBC) [Entitic mass] 25.6 pg Invalid Interpretation Code 27.0 - 31.2 pg AO Auto Heme SS MCHC (RBC) [Mass/Vol] 32.6 G/dL Invalid Interpretation Code 33.0 - 37.0 G/dL AO Auto Heme SS MCV (RBC) [Entitic vol] 78.5 fL Invalid Interpretation Code 80.0 - 94.0 fL AO Auto Heme SS Monocyte, Absolute 0.60 103/mcL Invalid Interpretation Code 0.15 - 1.00 10^3/mcL AO Auto Heme SS Monocytes/100 WBC (Bld) 5.4 % Invalid Interpretation Code 1.7 - 13.0 % AO Auto Heme SS Neutrophil, Absolute 8.90 103/mcL Invalid Interpretation Code 2.85 - 6.16 10^3/mcL AO Auto Heme SS Neutrophils/100 WBC (Bld) 76.0 % Invalid Interpretation Code 37.0 - 80.0 % AO Auto Heme SS Platelet mean volume (Bld) [Entitic vol] 8.8 fL Invalid Interpretation Code 7.4 - 10.4 fL AO Auto Heme SS Platelets (Bld) [#/Vol] 265 103/mcL Invalid Interpretation Code 130 - 400 10^3/mcL AO Auto Heme SS RBC (Bld) [#/Vol] 4.23 106/mcL Invalid Interpretation Code 4.20 - 5.40 10^6/mcL AO Auto Heme SS UA Leuk Est Negative (04/11/21 9:41 AM) Invalid Interpretation Code Negative AO Auto Urine SS UA Nitrite Negative (04/11/21 9:41 AM) Invalid Interpretation Code Negative AO Auto Urine SS UA pH 6.0 (04/11/21 9:41 AM) Invalid Interpretation Code 5.0 - 8.0 AO Auto Urine SS UA Protein 30 mg/dL Invalid Interpretation Code Negativemg /dL AO Auto Urine SS UA RBC 0-5 /HPF Invalid Interpretation Code None Seen/HPF AO Auto Urine SS UA Spec Grav >=1.030 *ABN* (04/11/21 9:41 AM) Invalid Interpretation Code 1.015-1.02 5 AO Auto Urine SS UA Specimen Type Clean Catch (04/11/21 9:41 AM) Invalid Interpretation Code AO Auto Urine SS UA Squam Epithelial 10-15 /HPF Invalid Interpretation Code None Seen/HPF AO Auto Urine SS UA Urobilinogen 0.2 E.U./dL Invalid Interpretation Code 0.2-1.0E.U ./dL AO Auto Urine SS WBC (Bld) [#/Vol] 11.70 103/mcL Invalid Interpretation Code 4.60 - 10.80 10^3/mcL AO Auto Heme SS WBC LM.HPF (Urine sed) [#/Area] 0-5 /HPF Invalid Interpretation Code None Seen/HPF AO Auto Urine SS LABORATORYOrdered By: Pablo Figueroa on 04-11-2021 Albumin BCP dye [Mass/Vol] 2.3 G/dL Invalid Interpretation Code 3.5 - 5.0 G/dL AO ADM SS Albumin/Globulin [Mass ratio] 0.7 {ratio} Invalid Interpretation Code 1.1 - 2.5 ratio AO ADM SS ALP [Catalytic activity/Vol] 165 U/L Invalid Interpretation Code 40 - 135 U/L AO ADM SS ALT With P-5'-P [Catalytic activity/Vol] 15 U/L Invalid Interpretation Code 14 - 59 U/L AO ADM SS AST With P-5'-P [Catalytic activity/Vol] 16 U/L Invalid Interpretation Code 10 - 40 U/L AO ADM SS Bilirubin [Mass/Vol] 0.3 mg/dL Invalid Interpretation Code 0.2 - 1.0 mg/dL AO ADM SS Calcium [Mass/Vol] 8.6 mg/dL Invalid Interpretation Code 8.4 - 10.2 mg/dL AO ADM SS Chloride [Moles/Vol] 105 mmol/L Invalid Interpretation Code 98 - 107 mmol/L AO ADM SS CO2 [Moles/Vol] 24 mmol/L Invalid Interpretation Code 22 - 29 mmol/L AO ADM SS Creatinine (U) [Mass/Vol] 199.6 mg/dL Invalid Interpretation Code 28.0 - 117.0 mg/dL AO ADM SS Creatinine [Mass/Vol] 0.54 mg/dL Invalid Interpretation Code 0.55 - 1.02 mg/dL AO ADM SS Electrolyte Balance 11.0 mEq/L Invalid Interpretation Code 4.0 - 15.0 mEq/L AO ADM SS Globulin 3.5 G/dL Invalid Interpretation Code AO ADM SS Glucose [Mass/Vol] 85 mg/dL Invalid Interpretation Code 70 - 105 mg/dL AO ADM SS Potassium [Moles/Vol] 4.1 mmol/L Invalid Interpretation Code 3.5 - 5.1 mmol/L AO ADM SS Protein (U) [Mass/Vol] 52 mg/dL Invalid Interpretation Code 0 - 11 mg/dL AO ADM SS Protein [Mass/Vol] 5.8 G/dL Invalid Interpretation Code 6.4 - 8.2 G/dL AO ADM SS Sodium [Moles/Vol] 140 mmol/L Invalid Interpretation Code 136 - 145 mmol/L AO ADM SS U Ratio Prot/Creat 0.3 ratio Invalid Interpretation Code AO Chemistry S Urea nitrogen [Mass/Vol] 10 mg/dL Invalid Interpretation Code 7 - 18 mg/dL AO ADM SS Urea nitrogen/Creatinine [Mass ratio] 19 ratio Invalid Interpretation Code 7 - 27 ratio AO ADM SS Uric Acid Lvl 4.1 mg/dL Invalid Interpretation Code 2.6 - 6.2 mg/dL AO ADM SS LABORATORYOrdered By: SYSTEM SYSTEM on 04-11-2021 GFR 157 ml/min/1.73sqm Invalid Interpretation Code AO Chemistry S GFR Non- 129 ml/min/1.73sqm Invalid Interpretation Code AO Chemistry S Laboratory - Chemistry and C hemistry - challengeOrdered By: Jannette Brewer on 04-11-2021 Glucose [Mass/Vol] 92 mg/dL Invalid Interpretation Code 70 - 110 mg/dL [facility] Work Phone: Comment on above: Result Comment: Mimi austin reports own blood sugar taken on her machine, feels fine Result Comment: done at home, around 0700 LABORATORYOrdered By: Masood Garcia on 04-04-2021 Group B Strep (PCR) Positive 1 *ABN* (04/04/21 11:28 AM) Invalid Interpretation Code Negative AH Auto Viro/Sero SS Comment on above: Result Comment: Note s 1990 Group B Strep PCR Int Group B Streptococcus DNA detected by Real-Time Polymerase Chain Reaction (PCR). Organism viability cannot be determined since DNA may persist in the absent of viable organisms. As with all PCR based in vitro tests, extremely low levels of targe below the limit of detection of the assay may be detected, but results may not be reproducible. Sensitivity testing is not available with this method. Invalid Interpretation Code AH Auto Viro/Sero SS LABORATORYOrdered By: Neris Bautista on 04-04-2021 Glucose [Mass/Vol] 128 mg/dL Invalid Interpretation Code 70 - 110 mg/dL [facility] Work Phone: LABORATORYOrdered By: Lucy Vizcaino on 03-22-2021 U24 Protein 405 MG/24 HR Invalid Interpretation Code <=149mg/24 hr AO Chemistry S U24 Total Volume 1500 mL/24hr Invalid Interpretation Code AO Chemistry S Ur Protein 27 mg/dL Invalid Interpretation Code 0 - 11 mg/dL AO ADM SS LABORATORYOrdered By: Dian Damico on 03-21-2021 Albumin BCP dye [Mass/Vol] 2.4 G/dL Invalid Interpretation Code 3.5 - 5.0 G/dL AO ADM SS Albumin/Globulin [Mass ratio] 0.7 {ratio} Invalid Interpretation Code 1.1 - 2.5 ratio AO ADM SS ALP [Catalytic activity/Vol] 142 U/L Invalid Interpretation Code 40 - 135 U/L AO ADM SS ALT With P-5'-P [Catalytic activity/Vol] 23 U/L Invalid Interpretation Code 14 - 59 U/L AO ADM SS AST With P-5'-P [Catalytic activity/Vol] 20 U/L Invalid Interpretation Code 10 - 40 U/L AO ADM SS Bilirubin [Mass/Vol] 0.3 mg/dL Invalid Interpretation Code 0.2 - 1.0 mg/dL AO ADM SS Calcium [Mass/Vol] 8.8 mg/dL Invalid Interpretation Code 8.4 - 10.2 mg/dL AO ADM SS Chloride [Moles/Vol] 104 mmol/L Invalid Interpretation Code 98 - 107 mmol/L AO ADM SS CO2 [Moles/Vol] 22 mmol/L Invalid Interpretation Code 22 - 29 mmol/L AO ADM SS Creatinine (U) [Mass/Vol] 91.9 mg/dL Invalid Interpretation Code 28.0 - 117.0 mg/dL AO ADM SS Creatinine [Mass/Vol] 0.57 mg/dL Invalid Interpretation Code 0.55 - 1.02 mg/dL AO ADM SS Electrolyte Balance 9.0 mEq/L Invalid Interpretation Code 4.0 - 15.0 mEq/L AO ADM SS Globulin 3.6 G/dL Invalid Interpretation Code AO ADM SS Glucose [Mass/Vol] 116 mg/dL Invalid Interpretation Code 70 - 105 mg/dL AO ADM SS Potassium [Moles/Vol] 4.8 mmol/L Invalid Interpretation Code 3.5 - 5.1 mmol/L AO ADM SS Protein (U) [Mass/Vol] 22 mg/dL Invalid Interpretation Code 0 - 11 mg/dL AO ADM SS Protein [Mass/Vol] 6.0 G/dL Invalid Interpretation Code 6.4 - 8.2 G/dL AO ADM SS Sodium [Moles/Vol] 135 mmol/L Invalid Interpretation Code 136 - 145 mmol/L AO ADM SS U Ratio Prot/Creat 0.2 ratio Invalid Interpretation Code AO Chemistry S Urea nitrogen [Mass/Vol] 11 mg/dL Invalid Interpretation Code 7 - 18 mg/dL AO ADM SS Urea nitrogen/Creatinine [Mass ratio] 19 ratio Invalid Interpretation Code 7 - 27 ratio AO ADM SS Uric Acid Lvl 4.1 mg/dL Invalid Interpretation Code 2.6 - 6.2 mg/dL AO ADM SS LABORATORYOrdered By: Mariaelena Benavides on 03-21-2021 Appearance (U) Slightly Cloudy *ABN* (03/21/21 4:04 PM) Invalid Interpretation Code Clear AO Auto Urine SS Basophil, Absolute 0.00 103/mcL Invalid Interpretation Code 0.00 - 0.19 10^3/mcL AO Auto Heme SS Basophils/100 WBC (Bld) 0.2 % Invalid Interpretation Code 0.0 - 2.5 % AO Auto Heme SS Bilirubin Ql (U) Negative (03/21/21 4:04 PM) Invalid Interpretation Code Negative AO Auto Urine SS Color (U) Yellow (03/21/21 4:04 PM) Invalid Interpretation Code AO Auto Urine SS Eosinophil, Absolute 0.10 103/mcL Invalid Interpretation Code 0.00 - 0.40 10^3/mcL AO Auto Heme SS Eosinophils/100 WBC (Bld) 1.0 % Invalid Interpretation Code 0.0 - 7.0 % AO Auto Heme SS Erythrocyte distribution width (RBC) [Ratio] 14.1 % Invalid Interpretation Code 11.5 - 14.5 % AO Auto Heme SS Glucose Test strip (U) [Mass/Vol] Negative Invalid Interpretation Code Negativemg /dL AO Auto Urine SS Hematocrit (Bld) [Volume fraction] 34.0 % Invalid Interpretation Code 37.0 - 47.0 % AO Auto Heme SS Hemoglobin (Bld) [Mass/Vol] 11.3 G/dL Invalid Interpretation Code 12.0 - 16.0 G/dL AO Auto Heme SS Hemoglobin Auto test strip (U) [Mass/Vol] Negative (03/21/21 4:04 PM) Invalid Interpretation Code Negative AO Auto Urine SS Ketones Ql (U) 40 mg/dL Invalid Interpretation Code Negativemg /dL AO Auto Urine SS Lymphocyte, Absolute 1.60 103/mcL Invalid Interpretation Code 0.77 - 3.85 10^3/mcL AO Auto Heme SS Lymphocytes/100 WBC (Bld) 12.7 % Invalid Interpretation Code 10.0 - 50.0 % AO Auto Heme SS MCH (RBC) [Entitic mass] 26.7 pg Invalid Interpretation Code 27.0 - 31.2 pg AO Auto Heme SS MCHC (RBC) [Mass/Vol] 33.1 G/dL Invalid Interpretation Code 33.0 - 37.0 G/dL AO Auto Heme SS MCV (RBC) [Entitic vol] 80.6 fL Invalid Interpretation Code 80.0 - 94.0 fL AO Auto Heme SS Monocyte, Absolute 0.60 103/mcL Invalid Interpretation Code 0.15 - 1.00 10^3/mcL AO Auto Heme SS Monocytes/100 WBC (Bld) 5.1 % Invalid Interpretation Code 1.7 - 13.0 % AO Auto Heme SS Neutrophil, Absolute 10.10 103/mcL Invalid Interpretation Code 2.85 - 6.16 10^3/mcL AO Auto Heme SS Neutrophils/100 WBC (Bld) 81.0 % Invalid Interpretation Code 37.0 - 80.0 % AO Auto Heme SS Platelet mean volume (Bld) [Entitic vol] 8.2 fL Invalid Interpretation Code 7.4 - 10.4 fL AO Auto Heme SS Platelets (Bld) [#/Vol] 216 103/mcL Invalid Interpretation Code 130 - 400 10^3/mcL AO Auto Heme SS RBC (Bld) [#/Vol] 4.22 106/mcL Invalid Interpretation Code 4.20 - 5.40 10^6/mcL AO Auto Heme SS UA Leuk Est Trace *ABN* (03/21/21 4:04 PM) Invalid Interpretation Code Negative AO Auto Urine SS UA Nitrite Negative (03/21/21 4:04 PM) Invalid Interpretation Code Negative AO Auto Urine SS UA pH 6.0 (03/21/21 4:04 PM) Invalid Interpretation Code 5.0 - 8.0 AO Auto Urine SS UA Protein Negative Invalid Interpretation Code Negativemg /dL AO Auto Urine SS UA RBC None Seen /HPF Invalid Interpretation Code None Seen/HPF AO Auto Urine SS UA Spec Grav 1.025 (03/21/21 4:04 PM) Invalid Interpretation Code 1.015-1.02 5 AO Auto Urine SS UA Specimen Type Clean Catch (03/21/21 4:04 PM) Invalid Interpretation Code AO Auto Urine SS UA Squam Epithelial 10-15 /HPF Invalid Interpretation Code None Seen/HPF AO Auto Urine SS UA Urobilinogen 0.2 E.U./dL Invalid Interpretation Code 0.2-1.0E.U ./dL AO Auto Urine SS WBC (Bld) [#/Vol] 12.50 103/mcL Invalid Interpretation Code 4.60 - 10.80 10^3/mcL AO Auto Heme SS WBC LM.HPF (Urine sed) [#/Area] 0-5 /HPF Invalid Interpretation Code None Seen/HPF AO Auto Urine SS LABORATORYOrdered By: SYSTEM SYSTEM on 03-21-2021 GFR 147 ml/min/1.73sqm Invalid Interpretation Code AO Chemistry S GFR Non- 121 ml/min/1.73sqm Invalid Interpretation Code AO Chemistry S LABORATORYOrdered By: Mariaelena Benavides on 03-17-2021 ABO/Rh Interp Negative Invalid Interpretation Code AO BB SS Antibody Screen Gel Negative ABSC (03/17/21 9:41 AM) Invalid Interpretation Code AO BB SS Basophil, Absolute 0.00 103/mcL Invalid Interpretation Code 0.00 - 0.19 10^3/mcL AO Auto Heme SS Basophils/100 WBC (Bld) 0.1 % Invalid Interpretation Code 0.0 - 2.5 % AO Auto Heme SS Eosinophil, Absolute 0.10 103/mcL Invalid Interpretation Code 0.00 - 0.40 10^3/mcL AO Auto Heme SS Eosinophils/100 WBC (Bld) 0.6 % Invalid Interpretation Code 0.0 - 7.0 % AO Auto Heme SS Erythrocyte distribution width (RBC) [Ratio] 14.1 % Invalid Interpretation Code 11.5 - 14.5 % AO Auto Heme SS Hematocrit (Bld) [Volume fraction] 33.5 % Invalid Interpretation Code 37.0 - 47.0 % AO Auto Heme SS Hemoglobin (Bld) [Mass/Vol] 11.1 G/dL Invalid Interpretation Code 12.0 - 16.0 G/dL AO Auto Heme SS Lymphocyte, Absolute 1.70 103/mcL Invalid Interpretation Code 0.77 - 3.85 10^3/mcL AO Auto Heme SS Lymphocytes/100 WBC (Bld) 14.1 % Invalid Interpretation Code 10.0 - 50.0 % AO Auto Heme SS MCH (RBC) [Entitic mass] 26.6 pg Invalid Interpretation Code 27.0 - 31.2 pg AO Auto Heme SS MCHC (RBC) [Mass/Vol] 33.2 G/dL Invalid Interpretation Code 33.0 - 37.0 G/dL AO Auto Heme SS MCV (RBC) [Entitic vol] 80.3 fL Invalid Interpretation Code 80.0 - 94.0 fL AO Auto Heme SS Monocyte, Absolute 0.50 103/mcL Invalid Interpretation Code 0.15 - 1.00 10^3/mcL AO Auto Heme SS Monocytes/100 WBC (Bld) 3.9 % Invalid Interpretation Code 1.7 - 13.0 % AO Auto Heme SS Neutrophil, Absolute 9.70 103/mcL Invalid Interpretation Code 2.85 - 6.16 10^3/mcL AO Auto Heme SS Neutrophils/100 WBC (Bld) 81.3 % Invalid Interpretation Code 37.0 - 80.0 % AO Auto Heme SS Platelet mean volume (Bld) [Entitic vol] 8.6 fL Invalid Interpretation Code 7.4 - 10.4 fL AO Auto Heme SS Platelets (Bld) [#/Vol] 253 103/mcL Invalid Interpretation Code 130 - 400 10^3/mcL AO Auto Heme SS RBC (Bld) [#/Vol] 4.17 106/mcL Invalid Interpretation Code 4.20 - 5.40 10^6/mcL AO Auto Heme SS WBC (Bld) [#/Vol] 11.90 103/mcL Invalid Interpretation Code 4.60 - 10.80 10^3/mcL AO Auto Heme SS No Panel Information Respiratory Panel (PCR) Rhinovirus [facility] Work Phone: Vital Signs Date Time Vital Sign Value Performing Clinician Faci lit 05-01-2024 09:20-0500 Diastolic Blood Pressure Non-Invasive 78 mm[Hg] GEORGE DE OLIVEIRA MD [facility] 05-01-2024 09:20-0500 Heart rate 93 /min GEORGE DE OLIVEIRA MD [facility] 05-01-2024 09:20-0500 Respiratory rate 20 /min GEORGE DE OLIVEIRA MD [facility] 05-01-2024 09:20-0500 Systolic Blood Pressure Non-Invasive 133 mm[Hg] GEORGE DE OLIVEIRA MD [facility] 05-01-2024 09:05-0500 Diastolic Blood Pressure Non-Invasive 70 mm[Hg] GEORGE DE OLIVEIRA MD [facility] 05-01-2024 09:05-0500 Heart rate 83 /min GEORGE DE OLIVEIRA MD [facility] 05-01-2024 09:05-0500 Respiratory rate 13 /min GEORGE DE OLIVEIRA MD [facility] 05-01-2024 09:05-0500 Systolic Blood Pressure Non-Invasive 126 mm[Hg] GEORGE DE OLIVEIRA MD [facility] 05-01-2024 08:50-0500 Diastolic Blood Pressure Non-Invasive 88 mm[Hg] GEORGE DE OLIVEIRA MD [facility] 05-01-2024 08:50-0500 Heart rate 81 /min GEORGE DE OLIVEIRA MD [facility] 05-01-2024 08:50-0500 Respiratory rate 15 /min GEORGE DE OLIVEIRA MD [facility] 05-01-2024 08:50-0500 Systolic Blood Pressure Non-Invasive 140 mm[Hg] GEORGE DE OLIVEIRA MD [facility] 05-01-2024 08:20-0500 Body temperature 99.32 [degF] GEORGE DE OLIVEIRA MD [facility] 05-01-2024 08:15-0500 Respiratory Rate - Anes 0 br/min GEORGE DE OLIVEIRA MD [facility] 05-01-2024 08:10-0500 Respiratory Rate - Anes 17 br/min GEORGE DE OLIVEIRA MD [facility] 05-01-2024 08:05-0500 Respiratory Rate - Anes 12 br/min GEORGE DE OLIVEIRA MD [facility] 05-01-2024 06:30-0500 Body height 163 cm GEORGE DE OLIVEIRA MD [facility] 05-01-2024 06:30-0500 Body temperature 96.62 [degF] GEORGE DE OLIVEIRA MD [facility] 05-01-2024 06:30-0500 Body weight 122 kg GEORGE DE OLIVEIRA MD [facility] 05-01-2024 06:30-0500 Heart rate 93 /min GEORGE DE OLIVEIRA MD [facility] 04-22-2024 09:15-0500 Blood Pressure Cuff Size GEORGE DE OLIVEIRA MD [facility] 04-22-2024 09:15-0500 Blood Pressure Location GEORGE DE OLIVEIRA MD [facility] 04-22-2024 09:15-0500 Blood Pressure Method GEORGE DE OLIVEIRA MD [facility] 04-22-2024 09:15-0500 Body height 162.6 cm GEORGE DE OLIVEIRA MD [facility] 04-22-2024 09:15-0500 Body weight 121.5 kg GEORGE DE OLIVEIRA MD [facility] 04-22-2024 09:15-0500 Body weight 45.96 kg/m2 GEORGE DE OLIVEIRA MD [facility] 04-22-2024 09:15-0500 Diastolic Blood Pressure Non-Invasive 105 mm[Hg] GEORGE DE OLIVEIRA MD [facility] 04-22-2024 09:15-0500 Heart rate 79 /min GEORGE DE OLIVEIRA MD [facility] 04-22-2024 09:15-0500 Systolic Blood Pressure Non-Invasive 163 mm[Hg] GEORGE DE OLIVEIRA MD [facility] 12-08-2023 07:52-0400 Body temperature 97.88 [degF] DR KAREY JARVIS MD [address] [place] [address] 12-08-2023 07:52-0400 Diastolic Blood Pressure Non-Invasive 68 mm[Hg] DR KAREY JARVIS MD [address] 12-08-2023 07:52-0400 Heart rate 80 /min DR KAREY JARVIS MD [address] [place] [address] 12-08-2023 07:52-0400 Respiratory rate 16 /min DR KAREY JARVIS MD [address] 12-08-2023 07:52-0400 Systolic Blood Pressure Non-Invasive 128 mm[Hg] DR KAREY JARVIS MD [address] 12-08-2023 00:15-0400 Body temperature 97.88 [degF] DR KAREY JARVIS MD [address] [place] [address] 12-08-2023 00:15-0400 Diastolic Blood Pressure Non-Invasive 82 mm[Hg] DR KAREY JARVIS MD [address] 12-08-2023 00:15-0400 Heart rate 88 /min DR KAREY JARVIS MD [address] 12-08-2023 00:15-0400 Reason For Taking VItal Signs DR KAREY JARVIS MD [address] [place] [address] 12-08-2023 00:15-0400 Respiratory rate 16 /min DR KAREY JARVIS MD [address] 12-08-2023 00:15-0400 Systolic Blood Pressure Non-Invasive 138 mm[Hg] DR KAREY JARVIS MD [address] [place] [address] 12-07-2023 15:30-0400 Body temperature 97.88 [degF] DR KAREY JARVIS MD [address] [place] [address] 12-07-2023 15:30-0400 Diastolic Blood Pressure Non-Invasive 80 mm[Hg] DR KAREY JARVIS MD [facility] 12-07-2023 15:30-0400 Heart rate 100 /min DR KAREY JARVIS MD [facility] 12-07-2023 15:30-0400 Reason For Taking VItal Signs DR KAREY JARVIS MD [facility] 12-07-2023 15:30-0400 Respiratory rate 16 /min DR KAREY JARVIS MD [facility] 12-07-2023 15:30-0400 Systolic Blood Pressure Non-Invasive 130 mm[Hg] DR KAREY JARVIS MD [facility] 12-07-2023 07:48-0400 Reason For Taking VItal Signs DR KAREY JARVIS MD [facility] 12-06-2023 10:13-0400 Body height 162.[address] KAREY JARVIS MD [facility] 12-06-2023 10:13-0400 Body weight [address] KAREY JARVIS MD [facility] 12-06-2023 10:13-0400 Body weight 49.55 kg/m2 DR KAREY JARVIS MD [facility] 12-06-2023 08:17-0400 Diastolic Blood Pressure Non-Invasive 105 mm[Hg] GEORGE DE OLIVEIRA MD [facility] 12-06-2023 08:17-0400 Heart rate 102 /min GEORGE DE OLIVEIRA MD [facility] 12-06-2023 08:17-0400 Respiratory rate 18 /min GEORGE DE OLIVEIRA MD [facility] 12-06-2023 08:17-0400 Systolic Blood Pressure Non-Invasive 152 mm[Hg] GEORGE DE OLIVEIRA MD [facility] 12-06-2023 08:02-0400 Diastolic Blood Pressure Non-Invasive 86 mm[Hg] GEORGE DE OLIVEIRA MD [facility] 12-06-2023 08:02-0400 Heart rate 101 /min GEORGE DE OLIVEIRA MD [facility] 12-06-2023 08:02-0400 Respiratory rate 18 /min GEORGE DE OLIVEIRA MD [facility] 12-06-2023 08:02-0400 Systolic Blood Pressure Non-Invasive 138 mm[Hg] GEORGE DE OLIVEIRA MD [facility] 12-06-2023 07:33-0400 Body temperature 98.24 [degF] GEORGE DE OLIVEIRA MD [facility] 12-06-2023 07:33-0400 Diastolic Blood Pressure Non-Invasive 96 mm[Hg] GEORGE DE OLIVEIRA MD [facility] 12-06-2023 07:33-0400 Heart rate 90 /min GEORGE DE OLIVEIRA MD [facility] 12-06-2023 07:33-0400 Respiratory rate 18 /min GEORGE DE OLIVEIRA MD [facility] 12-06-2023 07:33-0400 Systolic Blood Pressure Non-Invasive 156 mm[Hg] GEORGE DE OLIVEIRA MD [facility] 11-05-2023 02:42-0400 Diastolic Blood Pressure Non-Invasive 62 mm[Hg] ESTRADA LYNN MD [facility] 11-05-2023 02:42-0400 Heart rate 94 /min ESTRADA LYNN MD [facility] 11-05-2023 02:42-0400 Systolic Blood Pressure Non-Invasive 125 mm[Hg] ESTRADA LYNN MD [facility] 11-05-2023 02:31-0400 Diastolic Blood Pressure Non-Invasive 74 mm[Hg] ESTRADA LYNN MD [facility] 11-05-2023 02:31-0400 Heart rate 92 /min ESTRADA LYNN MD [facility] 11-05-2023 02:31-0400 Respiratory rate 20 /min ESTRADA LYNN MD [facility] 11-05-2023 02:31-0400 Systolic Blood Pressure Non-Invasive 149 mm[Hg] ESTRADA LYNN MD [facility] 09-23-2023 17:36-0400 Diastolic Blood Pressure Non-Invasive 90 mm[Hg] RAYNE MARTI MD [facility] 09-23-2023 17:36-0400 Heart rate 94 /min RAYNE MARTI MD [facility] 09-23-2023 17:36-0400 Respiratory rate 16 /min RAYNE MARTI MD [facility] 09-23-2023 17:36-0400 Systolic Blood Pressure Non-Invasive 145 mm[Hg] RAYNE MARTI MD [facility] 09-23-2023 15:44-0400 Diastolic Blood Pressure Non-Invasive 87 mm[Hg] RAYNE MARTI MD [facility] 09-23-2023 15:44-0400 Heart rate 95 /min RAYNE MARTI MD [facility] 09-23-2023 15:44-0400 Respiratory rate 16 /min RAYNE MARTI MD [facility] 09-23-2023 15:44-0400 Systolic Blood Pressure Non-Invasive 149 mm[Hg] RAYNE MARTI MD [facility] 09-23-2023 14:49-0400 Body temperature 97.7 [degF] RAYNE MARTI MD [facility] 09-23-2023 14:49-0400 Diastolic Blood Pressure Non-Invasive 87 mm[Hg] RAYNE MARTI MD [facility] 09-23-2023 14:49-0400 Heart rate 98 /min RAYNE MARTI MD [facility] 09-23-2023 14:49-0400 Respiratory rate 18 /min RAYNE MARTI MD [facility] 09-23-2023 14:49-0400 Systolic Blood Pressure Non-Invasive 147 mm[Hg] RAYNE MARTI MD [facility] 09-23-2023 14:30-0400 Diastolic Blood Pressure Non-Invasive 60 mm[Hg] RADHA HANSON [employer] ARCH[employer] [facility] 09-23-2023 14:30-0400 Heart rate 94 /min RADHA HANSON [employer] ARCHITECT[employer]IN[employer]CTOR [employer] [facility] 09-23-2023 14:30-0400 Respiratory rate 20 /min RADHA HANSON [employer] ARCHITECT[employer]IN[employer]CTOR [employer] [facility] 09-23-2023 14:30-0400 Systolic Blood Pressure Non-Invasive 137 mm[Hg] RADHA HANSON [employer] ARCHITECT[employer]IN[employer]CTOR [employer] [facility] 09-23-2023 14:15-0400 Diastolic Blood Pressure Non-Invasive 60 mm[Hg] RADHA HANSON [employer] ARCHITECT[employer]IN[employer]CTOR [employer] [facility] 09-23-2023 14:15-0400 Heart rate 97 /min RADHA HANSON [employer] ARCHITECT-INSTRUCTOR [employer] [facility] 09-23-2023 14:15-0400 Respiratory rate 20 /min RADHA HANSON [employer] ARCHITECT[employer]IN[employer]CTOR [employer] [facility] 09-23-2023 14:15-0400 Systolic Blood Pressure Non-Invasive 120 mm[Hg] RADHA HANSON [employer] ARCHITECT[employer]IN[employer]CTOR [employer] [facility] 09-23-2023 14:00-0400 Diastolic Blood Pressure Non-Invasive 62 mm[Hg] RADHA HANSON [employer] ARCHITECT[employer]IN[employer]CTOR [employer] [facility] 09-23-2023 14:00-0400 Heart rate 104 /min RADHA HANSON [employer] ARCHITECT[employer]IN[employer]CTOR [employer] [facility] 09-23-2023 14:00-0400 Systolic Blood Pressure Non-Invasive 133 mm[Hg] RADHA HANSON [employer] ARCHITECT[employer]IN[employer]CTOR [employer] [facility] 09-23-2023 13:59-0400 Body height 162.6 cm RADHA HANSON [employer] ARCHITECT[employer]IN[employer]CTOR [employer] [facility] 09-23-2023 13:59-0400 Body weight 129 kg RADHA HANSON [employer] ARCHITECT[employer]IN[employer]CTOR [employer] [facility] 09-23-2023 13:59-0400 Body weight 48.79 kg/m2 RADHA HANSON [employer] ARCHITECT[employer]IN[employer]CTOR [employer] [facility] 05-17-2022 15:51-0400 Diastolic blood pressure 87 mm[Hg] Dr. Yanelis Jones Work Phone: [facility] 05-17-2022 15:51-0400 Heart rate 90 /min Dr. Yanelis Jones Work Phone: [facility] 05-17-2022 15:51-0400 Respiratory rate 16 /min Dr. Yanelis Jones Work Phone: [facility] 05-17-2022 15:51-0400 SaO2% (BldA) [Mass fraction] 97 % Dr. Yanelis Jones Work Phone: [facility] 05-17-2022 15:51-0400 Systolic blood pressure 134 mm[Hg] Dr. Yanelis Jones Work Phone: [facility] 05-17-2022 12:59-0400 Body height 162.[address] Yanelis Jones Work Phone: [facility] 05-17-2022 12:59-0400 Body mass index (BMI) [Ratio] 45.4 kg/m2 Dr. Yanelis Jones Work Phone: [facility] 05-17-2022 12:59-0400 Body temperature 97.4 [degF] Dr. Yanelis Jones Work Phone: [facility] 05-17-2022 12:59-0400 Body weight 120.[address] Yanelis Jones Work Phone: [facility] 03-23-2022 17:23-0500 Body temperature 97.7 [degF] Dr. Yanelis Jones Work Phone: [facility] 03-23-2022 17:23-0500 Diastolic blood pressure 72 mm[Hg] Dr. Yanelis Jones Work Phone: [facility] 03-23-2022 17:23-0500 Heart rate 102 /min Dr. Yanelis Jones Work Phone: [facility] 03-23-2022 17:23-0500 Respiratory rate 20 /min Dr. Yanelis Jones Work Phone: [facility] 03-23-2022 17:23-0500 SaO2% (BldA) [Mass fraction] 99 % Dr. Yanelis Jones Work Phone: [facility] 03-23-2022 17:23-0500 Systolic blood pressure 122 mm[Hg] Dr. Yanelis Jones Work Phone: [facility] 04-13-2021 09:30-0500 Body temperature 98.96 [degF] ESTRADA LYNN MD [facility] 04-13-2021 09:30-0500 Diastolic blood pressure 88 mm[Hg] ESTRADA LYNN MD [facility] 04-13-2021 09:30-0500 Heart rate 100 /min ESTRADA LYNN MD [facility] 04-13-2021 09:30-0500 Respiratory rate 18 /min ESTRADA LYNN MD [facility] 04-13-2021 09:30-0500 Systolic blood pressure 133 mm[Hg] ESTRADA LYNN MD [facility] 04-12-2021 23:00-0500 Diastolic blood pressure 72 mm[Hg] ESTRADA LYNN MD [facility] 04-12-2021 23:00-0500 Mean blood pressure 93 mm[Hg] ESTRADA LYNN MD [facility] 04-12-2021 23:00-0500 Systolic blood pressure 135 mm[Hg] ESTRADA LYNN MD [facility] 04-12-2021 21:27-0500 Diastolic blood pressure 73 mm[Hg] ESTRADA LYNN MD [facility] 04-12-2021 21:27-0500 Heart rate 104 /min ESTRADA LYNN MD [facility] 04-12-2021 21:27-0500 Mean blood pressure 97 mm[Hg] ESTRADA LYNN MD [facility] 04-12-2021 21:27-0500 Respiratory rate 18 /min ESTRADA LYNN MD [facility] 04-12-2021 21:27-0500 Systolic blood pressure 144 mm[Hg] ESTRADA LYNN MD [facility] 04-12-2021 15:53-0500 Body temperature 98.24 [degF] ESTRADA LYNN MD [facility] 04-12-2021 15:53-0500 Mean blood pressure 95 mm[Hg] ESTRADA LYNN MD [facility] 04-12-2021 10:33-0500 Body temperature 97.52 [degF] ESTRADA LYNN MD [facility] 04-12-2021 10:21-0500 Diastolic Blood Pressure NBP 87 1 ESTRADA LYNN MD [facility] 04-12-2021 10:21-0500 Systolic Blood Pressure NBP 151 1 ESTRADA LYNN MD [facility] 04-12-2021 10:15-0500 Diastolic Blood Pressure NBP 72 1 ESTRADA LYNN MD [facility] 04-12-2021 10:15-0500 Systolic Blood Pressure NBP 131 1 ESTRADA LYNN MD [facility] 04-12-2021 10:10-0500 Diastolic Blood Pressure NBP 70 1 ESTRADA LYNN MD [facility] 04-12-2021 10:10-0500 Systolic Blood Pressure NBP 119 1 ESTRADA LYNN MD [facility] 04-12-2021 09:26-0500 Body temperature 97.34 [degF] ESTRADA LYNN MD [facility] 04-12-2021 04:22-0500 Body temperature 98.6 [degF] ESTRADA LYNN MD [facility] 04-11-2021 09:07-0500 Body height 162.6 cm ESTRADA LYNN MD [facility] 04-11-2021 09:07-0500 Body weight 127.3 kg ESTRADA LYNN MD [facility] 04-11-2021 09:07-0500 Body weight 48.15 kg/m2 ESTRADA LYNN MD [facility] 04-04-2021 02:01-0500 Diastolic blood pressure 68 mm[Hg] CORDELL MCCLENDON MD [facility] 04-04-2021 02:01-0500 Heart rate 96 /min CORDELL MCCLENDON MD [facility] 04-04-2021 02:01-0500 Mean blood pressure 85 mm[Hg] CORDELL MCCLENDON MD [facility] 04-04-2021 02:01-0500 Respiratory rate 20 /min CORDELL MCCLENDON MD [facility] 04-04-2021 02:01-0500 Systolic blood pressure 119 mm[Hg] CORDELL MCCLENDON MD [facility] 04-04-2021 01:46-0500 Diastolic blood pressure 60 mm[Hg] CORDELL MCCLENDON MD [facility] 04-04-2021 01:46-0500 Heart rate 101 /min CORDELL MCCLENDON MD [facility] 04-04-2021 01:46-0500 Mean blood pressure 82 mm[Hg] CORDELL MCCLENDON MD [facility] 04-04-2021 01:46-0500 Respiratory rate 20 /min CORDELL MCCLENDON MD [facility] 04-04-2021 01:46-0500 Systolic blood pressure 127 mm[Hg] CORDELL MCCLENDON MD [facility] 04-04-2021 01:31-0500 Diastolic blood pressure 84 mm[Hg] CORDELL MCCLENDON MD [facility] 04-04-2021 01:31-0500 Heart rate 105 /min CORDELL MCCLENDON MD [facility] 04-04-2021 01:31-0500 Mean blood pressure 104 mm[Hg] CORDELL MCCLENDON MD [facility] 04-04-2021 01:31-0500 Respiratory rate 21 /min CORDELL MCCLENDON MD [facility] 04-04-2021 01:31-0500 Systolic blood pressure 143 mm[Hg] CORDELL MCCLENDON MD [facility] 04-04-2021 01:25-0500 Body temperature 98.78 [degF] CORDELL MCCLENDON MD [facility] 04-04-2021 01:15-0500 Body height 162.6 cm CORDELL MCCLENDON MD [facility] 04-04-2021 01:15-0500 Body weight 125.5 kg CORDELL MCCLENDON MD [facility] 04-04-2021 01:15-0500 Body weight 47.47 kg/m2 CORDELL MCCLENDON MD [facility] 03-28-2021 12:10-0500 Diastolic blood pressure 79 mm[Hg] GEORGE DE OLIVEIRA MD [facility] 03-28-2021 12:10-0500 Heart rate 87 /min GEORGE DE OLIVEIRA MD [facility] 03-28-2021 12:10-0500 Mean blood pressure 97 mm[Hg] GEORGE DE OLIVEIRA MD [facility] 03-28-2021 12:10-0500 Systolic blood pressure 132 mm[Hg] GEORGE DE OLIVEIRA MD [facility] 03-28-2021 12:05-0500 Diastolic blood pressure 77 mm[Hg] GEORGE DE OLIVEIRA MD [facility] 03-28-2021 12:05-0500 Heart rate 83 /min GEORGE DE OLIVEIRA MD [facility] 03-28-2021 12:05-0500 Mean blood pressure 98 mm[Hg] GEORGE DE OLIVEIRA MD [facility] 03-28-2021 12:05-0500 Systolic blood pressure 141 mm[Hg] GEORGE DE OLIVEIRA MD [facility] 03-28-2021 11:25-0500 Diastolic blood pressure 76 mm[Hg] GEORGE DE OLIVEIRA MD [facility] 03-28-2021 11:25-0500 Heart rate 85 /min GEORGE DE OLIVEIRA MD [facility] 03-28-2021 11:25-0500 Mean blood pressure 92 mm[Hg] GEORGE DE OLIVEIRA MD [facility] 03-28-2021 11:25-0500 Systolic blood pressure 125 mm[Hg] GEORGE DE OLIVEIRA MD [facility] 03-21-2021 15:49-0500 Diastolic blood pressure 84 mm[Hg] GEORGE DE OLIVEIRA MD [facility] 03-21-2021 15:49-0500 Heart rate 88 /min GEORGE DE OLIVEIRA MD [facility] 03-21-2021 15:49-0500 Mean blood pressure 103 mm[Hg] GEORGE DE OLIVEIRA MD [facility] 03-21-2021 15:49-0500 Respiratory rate 16 /min GEORGE DE OLIVEIRA MD [facility] 03-21-2021 15:49-0500 Systolic blood pressure 140 mm[Hg] GEORGE DE OLIVEIRA MD [facility] 03-21-2021 15:30-0500 Diastolic blood pressure 83 mm[Hg] GEORGE DE OLIVEIRA MD [facility] 03-21-2021 15:30-0500 Heart rate 94 /min GEORGE DE OLIVEIRA MD [facility] 03-21-2021 15:30-0500 Mean blood pressure 103 mm[Hg] GEORGE DE OLIVEIRA MD [facility] 03-21-2021 15:30-0500 Respiratory rate 18 /min GEORGE DE OLIVEIRA MD [facility] 03-21-2021 15:30-0500 Systolic blood pressure 144 mm[Hg] GEORGE DE OLIVEIRA MD [facility] 03-21-2021 15:26-0500 Body temperature 96.98 [degF] GEORGE DE OLIVEIRA MD [facility] 03-21-2021 15:26-0500 Diastolic blood pressure 88 mm[Hg] GEORGE DE OLIVEIRA MD [facility] 03-21-2021 15:26-0500 Heart rate 94 /min GEORGE DE OLIVEIRA MD [facility] 03-21-2021 15:26-0500 Mean blood pressure 109 mm[Hg] GEORGE DE OLIVEIRA MD [facility] 03-21-2021 15:26-0500 Respiratory rate 18 /min GEORGE DE OLIVEIRA MD [facility] 03-21-2021 15:26-0500 Systolic blood pressure 150 mm[Hg] GEORGE DE OLIVEIRA MD [facility] 03-14-2021 17:27-0500 Body temperature 98.06 [degF] ESTRADA LYNN MD [facility] 03-14-2021 17:27-0500 Diastolic blood pressure 68 mm[Hg] ESTRADA LYNN MD [facility] 03-14-2021 17:27-0500 Heart rate 76 /min ESTRADA LYNN MD [facility] 03-14-2021 17:27-0500 Mean blood pressure 90 mm[Hg] ESTRADA LYNN MD [facility] 03-14-2021 17:27-0500 Respiratory rate 18 /min ESTRADA LYNN MD [facility] 03-14-2021 17:27-0500 Systolic blood pressure 133 mm[Hg] ESTRADA LYNN MD [facility] Encounters Encounter Date Encounter Type Care Provider Facility Start: 01-13-2025 End: 01-13-2025 ambulatory Brooks [place] Facility:[facility] Start: 01-07-2025 End: 01-07-2025 ambulatory BROOKS ACOSTA MD Facility:[facility] Start: 01-07-2025 End: 01-07-2025 Patient encounter procedure YVON NOE MD [facility] Start: 01-05-2025 End: 01-05-2025 ambulatory Brooks Dave Facility:[facility] Start: 12-22-2024 End: 12-22-2024 ambulatory Brooks [place] Facility:[facility] Start: 12-20-2024 End: 12-20-2024 ambulatory [facility] Start: 12-08-2024 End: 12-08-2024 ambulatory Brooks Dave Facility:[facility] Start: 11-18-2024 End: 11-18-2024 ambulatory Brooks Dave Facility:[facility] Start: 11-11-2024 End: 11-11-2024 ambulatory Brooks Dave Facility:[facility] Start: 10-15-2024 ambulatory Brooks Dave Facility :[facility] Start: 09-25-2024 End: 09-25-2024 ambulatory Florentino [facility] Facility:[facility] Start: 09-10-2024 End: 09-10-2024 ambulatory Brooks [place] Facility:[facility] Start: 09-02-2024 End: 09-02-2024 ambulatory Brooks Dvae Facility:[facility] Start: 09-01-2024 End: 09-01-2024 ambulatory Brooks Dave Facility:[facility] Start: 08-18-2024 End: 08-18-2024 ambulatory Brooks [place] Facility:[facility] Start: 08-11-2024 End: 08-11-2024 ambulatory Brooks [place] Facility:[facility] Start: 08-05-2024 End: 08-09-2024 ambulatory BROOKS ACOSTA MD Facility:[facility] Start: 08-05-2024 End: 08-09-2024 Outreach Lab YVON NOE MD [facility] Start: 08-04-2024 End: 08-04-2024 ambulatory Brookserick Acosta Facility:[facility] Start: 07-29-2024 End: 07-29-2024 ambulatory BROOKS ACOSTA MD Facility:[facility] Start: 07-29-2024 End: 07-29-2024 Patient encounter procedure YVON NOE MD [facility] Start: 07-21-2024 End: 07-21-2024 ambulatory Brooks Dave Facility:[facility] Start: 07-18-2024 End: 07-18-2024 ambulatory Brookserick Acosta Facility:[facility] Start: 07-17-2024 End: 07-17-2024 ambulatory BROOKS ACOSTA MD Facility:[facility] Start: 07-17-2024 End: 07-17-2024 Patient encounter procedure YVON NOE MD [facility] Start: 07-03-2024 End: 07-03-2024 ambulatory Sharad Santiago Facility:[facility] Start: 06-24-2024 ambulatory Brooks Dave Facility :[facility] Start: 06-02-2024 End: 06-02-2024 ambulatory Brooks Acosta Facility:[facility] Start: 05-20-2024 End: 05-20-2024 ambulatory Brooks Dave Facility:[facility] Start: 05-01-2024 End: 05-01-2024 ambulatory BROOKS ACOSTA MD Facility:[facility] Start: 05-01-2024 End: 05-01-2024 SAME DAY STAY GEORGE DE OLIVEIRA MD [facility] Start: 04-22-2024 End: 04-22-2024 Admission to establishment GEORGE DE OLIVEIRA MD [facility] Start: 04-22-2024 End: 04-22-2024 ambulatory BROOKS ACOSTA MD Facility:[facility] Start: 04-22-2024 Encounter for other preprocedural examination GEORGE DE OLIVEIRA MD [facility] Start: 04-17-2024 End: 04-17-2024 ambulatory Brooks Acosta Facility:[facility] Start: 04-14-2024 End: 04-15-2024 Emergency department patient visit Chay Kimberli Facility:[facility] Start: 03-18-2024 End: 03-18-2024 ambulatory Sharad Santiago Facility:[facility] Start: 03-12-2024 End: 03-12-2024 ambulatory Brooks Acosta Facility:[facility] Start: 02-25-2024 End: 02-29-2024 ambulatory BROOKS ACOSTA MD Facility:[facility] Start: 02-25-2024 End: 02-29-2024 Outreach Lab GEORGE DE OLIVEIRA MD [facility] Start: 02-22-2024 End: 02-22-2024 ambulatory Florentino WHITFIELD Facility:[facility] Start: 01-28-2024 End: 02-01-2024 ambulatory BROOKS ACOSTA MD Facility:[facility] Start: 01-28-2024 End: 02-01-2024 Outreach Lab GEORGE DE OLIVEIRA MD [facility] Start: 12-06-2023 End: 12-08-2023 Evaluation and management of inpatient DR KAREY JARVIS MD [facility] Start: 12-06-2023 End: 12-06-2023 Evaluation and management of inpatient GEORGE DE OLIVEIRA MD [facility] Start: 11-29-2023 End: 11-29-2023 Patient encounter procedure GEORGE DE OLIVEIRA MD [facility] Start: 11-22-2023 End: 11-22-2023 Patient encounter procedure GEORGE DE OLIVEIRA MD [facility] Start: 11-15-2023 End: 11-19-2023 Outreach Lab GEORGE DE OLIVEIRA MD [facility] Start: 11-15-2023 End: 11-15-2023 Patient encounter procedure GEORGE DE OLIVEIRA MD [facility] Start: 11-08-2023 End: 11-08-2023 Patient encounter procedure GEORGE DE OLIVEIRA MD [facility] Start: 11-05-2023 End: 11-05-2023 ambulatory BROOKS ACOSTA MD Facility:[facility] Start: 11-05-2023 End: 11-05-2023 SAME DAY STAY ESTRADA LYNN MD [facility] Start: 11-01-2023 ambulatory GEORGE DE OLIVEIRA MD Facili ty:[facility] Start: 11-01-2023 ambulatory GEORGE DE OLIVEIRA MD Facili ty[facility] Start: 11-01-2023 End: 11-01-2023 ambulatory GEORGE DE OLIVEIRA MD Facility[facility] Start: 11-01-2023 End: 11-01-2023 Patient encounter procedure GEORGE DE OLIVEIRA MD [facility] Start: 10-30-2023 ambulatory GEORGE DE OLIVEIRA MD Facili ty[facility] Start: 10-25-2023 ambulatory BROOKS ACOSTA MD Fac ility:[facility] Start: 10-18-2023 End: 10-18-2023 ambulatory BROOKS ACOSTA MD Facility:[facility] Start: 09-26-2023 End: 09-26-2023 ambulatory BROOKS ACOSTA MD Facility:[facility] Start: 09-23-2023 End: 09-23-2023 Emergency department patient visit RAYNE MARTI MD [facility] Start: 09-23-2023 End: 09-23-2023 ambulatory BROOKS ACOSTA MD Facility[facility] Start: 09-23-2023 End: 09-23-2023 SAME DAY STAY RADHA HANSON [employer]OR[employer] 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 Start: 08-20-2023 End: 08-20-2023 Patient encounter procedure GEORGE DE OLIVEIRA MD [facility] Start: 07-20-2023 End: 07-20-[address] YANELIS JONES MD Facility:[facility] Start: 06-14-[address] YANELIS JONES MD Facil ity: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 Start: 01-04-2023 End: 01-08-2023 Outreach Lab GEORGE DE OLIVEIRA MD [facility] Start: 08-03-2022 End: 08-03-2022 Patient encounter procedure GEORGE DE OLIVEIRA MD [facility] Start: 06-01-2022 End: 06-05-2022 Outreach Lab GEORGE DE OLIVEIRA MD [facility] Start: 05-17-2022 End: 05-17-2022 Emergency department patient visit Dr. Yanelis Jones Work Phone: [facility] Start: 03-23-2022 End: 03-23-[address] Yanelis Jones Work Phone: [facility] Start: 03-23-2022 Non-patient / Non-visit Dr. Gilberto Jones Work Phone: [facility] Start: 01-19-2022 End: 01-23-2022 Outreach Lab GEORGE DE OLIVEIRA MD [facility] Start: 01-10-2022 End: 01-14-2022 Outreach Lab CORDELL MCCLENDON MD [facility] Start: 12-01-2021 End: 12-05-2021 Outreach Lab GEORGE DE OLIVEIRA MD [facility] Start: 11-25-2021 End: 11-25-2021 ambulatory [facility] Work Phone: Start: 11-25-2021 End: 11-25-2021 Patient encounter procedure [facility] Start: 10-27-2021 End: 10-27-2021 [facility] Start: 04-11-2021 End: 04-13-2021 Evaluation and management of inpatient ESTRADA LYNN MD [facility] Start: 04-04-2021 End: 04-08-2021 Outreach Lab GEORGE DE OLIVEIRA MD [facility] Start: 04-04-2021 End: 04-04-2021 Patient encounter procedure GEORGE DE OLIVEIRA MD [facility] Start: 04-04-2021 End: 04-04-2021 SAME DAY STAY CORDELL MCCLENDON MD [facility] Start: 03-28-2021 End: 03-28-2021 SAME DAY STAY GEORGE DE OLIVEIRA MD [facility] Start: 03-28-2021 End: 03-28-2021 Patient encounter procedure 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 [employer] [facility] Start: 03-22-2021 End: 03-26-2021 Outreach Lab ESTRADA LYNN MD [facility] Start: 03-21-2021 End: 03-21-2021 SAME DAY STAY GEORGE DE OLIVEIRA MD [facility] Start: 03-17-2021 End: 03-17-2021 Patient encounter procedure GEORGE DE OLIVEIRA MD [facility] Start: 03-14-2021 End: 03-14-2021 SAME DAY STAY ESTRADA LYNN MD [facility] Start: 01-10-2021 End: 01-10-2021 Patient encounter procedure GEORGE DE OLIVEIRA MD [facility] Start: 12-13-2020 End: 12-13-2020 Patient encounter procedure GEORGE DE OLIVEIRA MD [facility] Procedures Date Procedure Procedure Detail Performing Clinician Start: 05-01-2024 Laparoscopic salpingectomy GEORGE Hylton Comment on above: BILATERAL Start: 04-12-2021 Dilation and curettage of uterus after delivery ESTRADA LYNN MD Start: 04-04-2011 Colonoscopy GEORGE DE OLIVEIRA MD Esophagogastroduodenoscopy Warner DE OLIVEIRA MD H/O: surgery Status post bilateral salpingectomy GEORGE DE OLIVEIRA MD None (qualifier value) GEORGE DE OLIVEIRA MD Respiratory Panel (PCR) Structure of wisdom tooth (body structure) GEORGE DE OLIVEIRA MD Plan of Treatment Date Care Activity Detail Author Patient Education ED Gastroenteritis, Vir al (Adult) [facility] Work Phone: Patient referral [facility] Work Phone: Immunizations Immunization Date Immunization Notes Care Provider Fa cilibrennen 10-25-2023 tetanus toxoid, redu nicol diphtheria toxoid, and acellular pertussis vaccine, adsorbed; Translations: [Boostrix (Tdap)] GEORGE DE OLIVEIRA MD [facility] Comment on above: Early/Late Reason: E ranjan/Late Reason: Other : This nurse unable to chat at time of injection Result Comment: [facility]# [id number] 04-28-2020 tetanus toxoid, redu nicol diphtheria toxoid, and acellular pertussis vaccine, adsorbed; Translations: [Boostrix (Tdap)] GEORGE DE OLIVEIRA MD [facility] 01-02-2020 Influenza virus vaccine [facility] 12-11-2013 Influenza virus vaccine [facility] Payers Date Payer Category Payer Medicaid [id number] 2024 Private Health Insurance [id number] 2024 Self-pay [id number] 2023 Medicare [id number] 2023 Unknown [id number] 2023 Unknown [id number] 2015 Unknown [employer] [facility] *IN NETWORK [id number] 1987 Unknown [id number] 2..840.1.026435.3.579.2.6 1987 Unknown [id number] ..840.1.067416.3.579.2.6 1987 Unknown [id number] 2..840.1.135234.3.579.2.6 1987 Unknown [id number] 2.16.840.1.678824.3.579.2.6 27 1987 Unknown [id number] 2.16.840.1.895890.3.579.2.6 1987 Unknown [id number] 2.16.840.1.607251.3.579.2.6 1987 Unknown [id number] 2.16.840.1.209725.3.579.2.6 1987 Unknown [id number] 2.16.840.1.946724.3.579.2.6 1987 Unknown [id number] 2.16.840.1.519078.3.579.2.6 1987 Unknown [id number] 2.16.840.1.981035.3.579.2.6 1987 Unknown [id number] 2.16.840.1.261641.3.579.2.6 1987 Unknown [id number] 2.16.840.1.288830.3.579.2.6 1987 Unknown [id number] 2.16.840.1.307886.3.579.2.6 1987 Unknown [id number] 2.16.840.1.137316.3.579.2.6 1987 Unknown [id number] 2.16.840.1.286478.3.579.2.6 1987 Unknown [id number] 2.16.840.1.340596.3.579.2.6 1987 Unknown [id number] 2.16.840.1.804961.3.579.2.6 1987 Unknown [id number] 2.16.840.1.505538.3.579.2.6 1987 Unknown [id number] 2.16.840.1.601911.3.579.2.6 1987 Unknown [id number] 2.16.840.1.979257.3.579.2.6 1987 Unknown [id number] 2.16.840.1.655667.3.579.2.6 1987 Unknown [id number] 2.16.840.1.383216.3.579.2.6 1987 Unknown [id number] 2.16.840.1.189414.3.579.2.6 1987 Unknown [id number] 2.16.840.1.045064.3.579.2.6 1987 Unknown [id number] 2.16.840.1.960072.3.579.2.6 1987 Unknown [id number] 2.16.840.1.928401.3.579.2.6 1987 Unknown [id number] 2.16.840.1.901286.3.579.2.4 79 Unknown [id number] 2.16.840.1.018291.3.579.2.4 62 Unknown [id number] 2.16.840.1.056792.3.579.2.4 62 Unknown [id number] 2.16.840.1.726464.3.579.2.4 62 Unknown [id number] 2.16.840.1.637336.3.579.2.4 62 Unknown [id number] 2.16.840.1.603134.3.579.2.4 62 Unknown [id number] 2.16.840.1.325853.3.579.2.4 62 Unknown [id number] 2.16.840.1.812446.3.579.2.4 62 Unknown [id number] 2.16.840.1.282963.3.579.2.4 62 Unknown [id number] 2.16.840.1.894212.3.579.2.4 62 Unknown [id number] 2.16.840.1.817790.3.579.2.4 62 Unknown [id number] 2.16.840.1.308626.3.579.2.4 62 Unknown [id number] 2.16.840.1.944828.3.579.2.4 62 Unknown [id number] 2.16.840.1.870111.3.579.2.4 62 Unknown [id number] 2.16.840.1.697410.3.579.2.4 62 Unknown [id number] 2.16.840.1.967893.3.579.2.4 62 Unknown [id number] 2.16.840.1.061308.3.579.2.4 62 Unknown [id number] 2.16.840.1.863645.3.579.2.4 62 Unknown [id number] 2.16.840.1.560127.3.579.2.4 62 Unknown [id number] 2.16.840.1.210340.3.579.2.4 62 Unknown [id number] 2.16.840.1.756504.3.579.2.4 62 Unknown [id number] 2.16.840.1.838763.3.579.2.4 62 Unknown [id number] 2.16.840.1.438584.3.579.2.4 62 Unknown [id number] 2.16.840.1.110356.3.579.2.4 62 Unknown [id number] 2.16.840.1.531474.3.579.2.4 62 Unknown [id number] 2.16.840.1.401982.3.579.2.4 62 Unknown [id number] 2.16.840.1.458275.3.579.2.4 62 Social History Date Type Detail Facility Start: 01-28-2020 End: 09-23-2023 Never smoked tobacco (finding) [facility] Start: 1985 Sex Assigned At Female A [facility] Start: 02-24-2021 End: 05-17-2022 Tobacco smoking status NHIS Unknown if ever smoked [facility] Start: 07-26-2020 None [facility] Start: 07-26-2020 Alone [facility] Start: 07-26-2020 Non-smoker [facility] Sexual Orientation [facility] Start: 01-27-2020 Sex Female (finding) [facility] NEGATED: Highlighted row [facility] Functional Status Date Assessment Result Facility 05-01-2024 Functional Status Up to chair [facility] 05-01-2024 Functional Status bilateral knee high richard lied/on [facility] 05-01-2024 Functional Status Maintained, More than 8 hours [facility] 04-22-2024 Functional Status Sensory Deficits None A [facility] 12-08-2023 Functional Status Activity Status ADL Up ad carmen [facility] 12-08-2023 Functional Status Repositions self [facility] 12-08-2023 Functional Status [facility] 12-08-2023 Functional Status [facility] 12-08-2023 Functional Status [facility] 12-07-2023 Functional Status [facility] 12-06-2023 Functional Status Home independently [facility] 09-23-2023 Functional Status None [facility] Mental Status Date Assessment Result Facility 05-01-2024 Mental Status Orientation Oriented x 4 [facility] 05-01-2024 Mental Status [facility] 05-01-2024 Mental Status [facility] 09-23-2023 Mental Status Oriented x 4 [facility] Clinical Notes 03-14-2021 to 05-01-2024 Note Date & Type Note Facility 05-01-2024 Evaluation + Plan note Extrac mak from: Title:Clinical Document Author:NIKITA LOCO, GEORGE Kumar Date:05/01/24 CLIO ADMISSION HISTORY AN D PHYSICIAL CHIEF COMPLAINT: Request permanent sterilization HISTORY OF PRESENT ILLNESS: Dory is a 39-year-old 4 para 4 who presents for elective sterilization. She currently has a progesterone containing IUD in place. Other than being overweight and having diabetes she is generally healthy. REVIEW OF SYSTEMS: Review of systems unremarkable. ACTIVE PROBLEMS: (16) Body mass index 30+ - obesity (417596850) Carpal tunnel syndrome, right (80457334) Diabetes (681245633) Diabetes mellitus type 1 (256936284) Encounter for general counseling and advice on contraceptive management (236086070) Encounter for IUD insertion (675516203) Encounter for supervision of normal in multigravida in third trimester (567866288) Fatty liver (335459067) GERD (gastroesophageal reflux disease) (694727451) Gestational diabetes requiring insulin (1115787352) Group B streptococcus (097676734) Hypertension (3110884769) IUD check up (0288181592) exam (402257928) state (082677966) Type 2 diabetes mellitus (059085599) MEDICATIONS: Active Inpt Meds: cefOXitin (Mefoxin) Start: 05/01/24 6:00:00 EST, Dose = 2 gram(s), = 50 mL, IV Piggyback, PREOP pharm, Rate: 100 mL/hr, Infuse over: 30 minute(s), 0 Active PRN Meds: None One Time Meds: None Active IV Meds: Lactated Ringers Infusion 1000 mL Start: 05/01/24 6:59:00 EST, Rate: 20 mL/hr, 05/01/24 6:59:00 EST ALLERGIES: (3) Bydureon SEROquel sulfa drugs FAMILY HISTORY: No significant family history pertaining to this admission SOCIAL HISTORY: Non-smoker, no toxic habits, no alcohol use. Stable home and family PHYSICAL EXAM: VITALS: [id number](kg) 05/01 06:3035.9--550103BZ31/93275.0 24 Hr Tmax: 35.9 at 05/01 06:30 36 Hr Tmax: 35.9 at 05/01 06:30 Vital Signs are the last 5 in the past 48 hours. Weights display the last 5 within 7 days. Initial Wt: 05/01 122.0 kg 268 lb Current Wt: 05/01 122.0 kg 268 lb GENERAL: Normocephalic HEENT: Normocephalic CARDIOVASCULAR: Regular rate and rhythm normal blood pressure RESPIRATORY: Clear bilaterally ABDOMEN: Soft nontender no masses or scars EXREMETIES: No edema or deformity NEUROLOGICAL: Intact PSYCHIATRIC: No signs of acute depression or anxiety LABS: 36hr Labs 05/01 0630 Blood Glucose, [id number] Blood Glucose, [id number] 05/01 0615 testSee Flowsheet TestSee Flowsheet DIAGNOSTICS: No significant diagnostics pertaining to this admission IMPRESSION: 39-year-old requesting permanent sterilization. PLAN: Plan for laparoscopic bilateral salpingectomy. Permanence of the procedure, risks, and postsurgical expectations were reviewed with the patient today. She plans to leave her progesterone containing IUD in place to help control her menses. All questions were answered and consents have been obtained. Future Appointments Appointment Date:07/17/2024 09:30:00 AM Scheduled Provider:YVON NOE MD Location:[facility] Appointment Type:ENDO [facility]RILL [facility]OCIATE Future Scheduled Tests Radiology* US OB W/Biophysical Profile 10/25/23 * US OB W/Biophysical Profile 11/08/23 [facility] 02-27-2025 Hospital Discharge instructions Patient Education 05/01/2024 08:27:56 Nausea and Vomiting, Adult Nausea and Vomiting, Adult Nausea is the feeling that you have an upset stomach or that you are about to vomit. Vomiting is when stomach contents are thrown up and out of the mouth as a result of nausea. Vomiting can make you feel weak and cause you to become dehydrated. Dehydration can make you feel tired and thirsty, cause you to have a dry mouth, and decrease how often you urinate. Older adults and people with other diseases or a weak disease-fighting system (immune system) are at higher risk for dehydration. It is important to treat your nausea and vomiting as told by your health care provider. Follow these instructions at home: Watch your symptoms for any changes. Tell your health care provider about them. Follow these instructions to care for yourself at home. Eating and drinking Take an oral rehydration solution (ORS). This is a drink that is sold at pharmacies and retail stores. Drink clear fluids slowly and in small amounts as you are able. Clear fluids include water, ice chips, low-calorie sports drinks, and fruit juice that has water added (diluted fruit juice). Eat bland, jqdk-qx-fdbvly foods in small amounts as you are able. These foods include bananas, applesauce, rice, lean meats, toast, and crackers. Avoid fluids that contain a lot of sugar or caffeine, such as energy drinks, sports drinks, and soda. Avoid alcohol. Avoid spicy or fatty foods. General instructions Take iuaa-vmx-gvwqivh and prescription medicines only as told by your health care provider. Drink enough fluid to keep your urine pale yellow. Wash your hands often using soap and water. If soap and water are not available, use hand dental practitioner. Make sure that all people in your household wash their hands well and often. Rest at home while you recover. Watch your condition for any changes. Breathe slowly and deeply when you feel nauseated. Keep all follow-up visits as told by your health care provider. This is important. Contact a health care provider if: Your symptoms get worse. You have new symptoms. You have a fever. You cannot drink fluids without vomiting. Your nausea does not go away after 2 days. You feel light-headed or dizzy. You have a headache. You have muscle cramps. You have a rash. You have pain while urinating. Get help right away if: You have pain in your chest, neck, arm, or jaw. You feel extremely weak or you faint. You have persistent vomiting. You have vomit that is bright red or looks like black coffee grounds. You have bloody or black stools or stools that look like tar. You have a severe headache, a stiff neck, or both. You have severe pain, cramping, or bloating in your abdomen. You have difficulty breathing, or you are breathing very quickly. Your heart is beating very quickly. Your skin feels cold and clammy. You feel confused. You have signs of dehydration, such as: ?Dark urine, very little urine, or no urine. ?Cracked lips. ?Dry mouth. ?Sunken eyes. ?Sleepiness. ?Weakness. These symptoms may represent a serious problem that is an emergency. Do not wait to see if the symptoms will go away. Get medical help right away. Call your local emergency services (911 in the [place] Do not drive yourself to the hospital. Summary Nausea is the feeling that you have an upset stomach or that you are about to vomit. As nausea getsworse, it can lead to vomiting. Vomiting can make you feel weak and cause you to become dehydrated. Follow instructions from your health care provider about eating and drinking to prevent dehydration. Take tiok-yir-khafblo and prescription medicines only as told by your health care provider. Contact your health care provider if your symptoms get worse, or you have new symptoms. Keep all follow-up visits as told by your health care provider. This is important. This information is not intended to replace advice given to you by your health care provider. Make sure you discuss any questions you have with your health care provider. Document Released: 02/19/2006 Document Revised: 06/13/2019 Document Reviewed: 07/30/2018 [employer] Patient Education 2020 [employer]. 05/01/2024 08:27:47 General Anesthesia, Adult, Care After General Anesthesia, Adult, Care After This sheet gives you information about how to care for yourself after your procedure. Your health care provider may also give you more specific instructions. If you have problems or questions, contact your health care provider. What can I expect after the procedure? After the procedure, the following side effects are common: Pain or discomfort at the IV site. Nausea. Vomiting. Sore throat. Trouble concentrating. Feeling cold or chills. Weak or tired. Sleepiness and fatigue. Soreness and body aches. These side effects can affect parts of the body that were not involved in surgery. Follow these instructions at home: For at least 24 hours after the procedure: Have a responsible adult stay with you. It is important to have someone help care for you until youare awake and alert. Rest as needed. Do not: ?Participate in activities in which you could fall or become injured. ?Drive. ?Use heavy machinery. ?Drink alcohol. ?Take sleeping pills or medicines that cause drowsiness. ?Make important decisions or sign legal documents. ?Take care of children on your own. Eating and drinking Follow any instructions from your health care provider about eating or drinking restrictions. When you feel hungry, start by eating small amounts of foods that are soft and easy to digest (bland), such as toast. Gradually return to your regular diet. Drink enough fluid to keep your urine pale yellow. If you vomit, rehydrate by drinking water, juice, or clear broth. General instructions If you have sleep apnea, surgery and certain medicines can increase your risk for breathing problems. Follow instructions from your health care provider about wearing your sleep device: ?Anytime you are sleeping, including during daytime naps. ?While taking prescription pain medicines, sleeping medicines, or medicines that make you drowsy. Return to your normal activities as told by your health care provider. Ask your health care provider what activities are safe for you. Take xsbh-ixn-qrebxvb and prescription medicines only as told by your health care provider. If you smoke, do not smoke without supervision. Keep all follow-up visits as told by your health care provider. This is important. Contact a health care provider if: You have nausea or vomiting that does not get better with medicine. You cannot eat or drink without vomiting. You have pain that does not get better with medicine. You are unable to pass urine. You develop a skin rash. You have a fever. You have redness around your IV site that gets worse. Get help right away if: You have difficulty breathing. You have chest pain. You have blood in your urine or stool, or you vomit blood. Summary After the procedure, it is common to have a sore throat or nausea. It is also common to feel tired. Have a responsible adult stay with you for the first 24 hours after general anesthesia. It is important to have someone help care for you until you are awake and alert. When you feel hungry, start by eating small amounts of foods that are soft and easy to digest (bland), such as toast. Gradually return to your regular diet. Drink enough fluid to keep your urine pale yellow. Return to your normal activities as told by your health care provider. Ask your health care provider what activities are safe for you. This information is not intended to replace advice given to you by your health care provider. Make sure you discuss any questions you have with your health care provider. Document Released: 05/28/2001 Document Revised: 02/22/2018 Document Reviewed: 10/05/2017 [employer] Patient Education 2020 [employer]. 05/01/2024 08:24:59 Diagnostic Laparoscopy, Care After Diagnostic Laparoscopy, Care After This sheet gives you information about how to care for yourself after your procedure. Your health care provider may also give you more specific instructions. If you have problems or questions, contact your health care provider. What can I expect after the procedure? After the procedure, it is common to have: Mild discomfort in the abdomen. Sore throat. Women who have laparoscopy with pelvic examination may have mild cramping and fluid coming from thevagina for a few days after the procedure. Follow these instructions at home: Medicines Take yldb-rwe-lrabaez and prescription medicines only as told by your health care provider. If you were prescribed an antibiotic medicine, take it as told by your health care provider. Do notstop taking the antibiotic even if you start to feel better. Driving Do not drive for 24 hours if you were given a medicine to help you relax (sedative) during your procedure. Do not drive or use heavy machinery while taking prescription pain medicine. Bathing Do not take baths, swim, or use a hot tub until your health care provider approves. You may take showers. Incision care Follow instructions from your health care provider about how to take care of your incisions. Make sure you: ?Wash your hands with soap and water before you change your bandage (dressing). If soap and water are not available, use hand dental practitioner. ?Change your dressing as told by your health care provider. ?Leave stitches (sutures), skin glue, or adhesive strips in place. These skin closures may need to stay in place for 2 weeks or longer. If adhesive strip edges start to loosen and curl up, you may trim the loose edges. Do not remove adhesive strips completely unless your health care provider tells you to do that. Check your incision areas every day for signs of infection. Check for: ?Redness, swelling, or pain. ?Fluid or blood. ?Warmth. ?Pus or a bad smell. Activity Return to your normal activities as told by your health care provider. Ask your health care provider what activities are safe for you. Do not lift anything that is heavier than 10 lb (4.5 kg), or the limit that you are told, until your health care provider says that it is safe. General instructions To prevent or treat constipation while you are taking prescription pain medicine, your health care provider may recommend that you: ?Drink enough fluid to keep your urine pale yellow. ?Take uuqx-qmt-mvgoyfo or prescription medicines. ?Eat foods that are high in fiber, such as fresh fruits and vegetables, whole grains, and beans. ?Limit foods that are high in fat and processed sugars, such as fried and sweet foods. Do not use any products that contain nicotine or tobacco, such as cigarettes and e-cigarettes. If you need help quitting, ask your health care provider. Keep all follow-up visits as told by your health care provider. This is important. Contact a health care provider if: You develop shoulder pain. You feel lightheaded or faint. You are unable to pass gas or have a bowel movement. You feel nauseous or you vomit. You develop a rash. You have redness, swelling, or pain around any incision. You have fluid or blood coming from any incision. Any incision feels warm to the touch. You have pus or a bad smell coming from any incision. You have a fever or chills. Get help right away if: You have severe pain. You have vomiting that does not go away. You have heavy bleeding from the vagina. Any incision opens. You have trouble breathing. You have chest pain. Summary After the procedure, it is common to have mild discomfort in the abdomen and a sore throat. Check your incision areas every day for signs of infection. Return to your normal activities as told by your health care provider. Ask your health care provider what activities are safe for you. This information is not intended to replace advice given to you by your health care provider. Make sure you discuss any questions you have with your health care provider. Document Released: 01/31/2016 Document Revised: 02/01/2018 Document Reviewed: 08/15/2017 [employer] Patient Education 2020 [employer]. Follow Up Care 04/16/2024 08:22:17 With:GEORGE DE OLIVEIRA MD Address: [address] [place] [address] [place] [address] [phone] When: Unknown Comments:please call to schedule post operative appointment for next [facility] 02-27-2025 Note Discharge Instructions Thank you for allowing [facility] to assist you with your healthcare needs. The following is importantdischarge information regarding your hospital visit. Your Care Team BROOKS ACOSTA MD Your Diagnosis Status post bilateral salpingectomy S/P laparoscopy Post-op pain What to do next Scheduled Follow-Up Appointments Appointment Type When With Where Contact Information Donna DUDLEY 07/17/2024 09:30 AM YVON JESUS MD [facility] [address] [facility] [address] [place] [address]- [phone] Confirmed Follow Up Appointments Follow Up with GEORGE DE OLIVEIRA MD Where:[address] [place] [address] [address] [facility] [place] [address]- [phone] Additional Information: please call to schedule post operative appointment for next Medications Please ask your primary doctor or pharmacist before taking any other medication not listed, including over the counter drugs, herbal medications, vitamins and or supplements as they may interact withyour home medications. What How Much When Why Instructions Last Dose New acetaminophen-oxyCODONE (Percocet 5 mg-325 mg oral tablet) 1 tab(s) by mouth Every 4 hours as needed for for pain S/P laparoscopy Post-op pain Duration: 7 Days Pickup at [facility] New ibuprofen (ibuprofen 600 mg oral tablet) 1 tab(s) by mouth Every 6 hours as needed for for pain Duration: 10 Days Take with food or milk. Pickup at [facility] Unchanged amLODIPine (amLODIPine 5 mg oral tablet) 1 tab(s) by mouth Once a day Duration: 30 Days Unchanged busPIRone (busPIRone 15 mg oral tablet) 1 tab(s) by mouth Three (3) times a day Unchanged clonazePAM (clonazePAM 0.5 mg oral tablet) take 1 tablet by mouth daily if needed for anxiety Unchanged metFORMIN (MetFORMIN (Eqv-Glucophage XR) 500 mg oral tablet, EXTENDED RELEASE) 2 tab(s) Two (2) times a day Unchanged multivitamin, ( Multivitamins with Vitamin B Complex, Vitamin C, Minerals and L-Methylfolate oral capsule) 1 cap by mouth Every day Unchanged pantoprazole (pantoprazole 40 mg oral enteric coated tablet) take 1 tablet by mouth once daily Pharmacy Information [facility]: [address] [place], [place] [id number] [phone] Please take this list to your next doctor s visit. Bring all medications you take, including over the counter medications, herbals and other supplements with you to your doctor s visit. Patients and families are reminded to discard old lists and to update any records with all medication providers or retail pharmacies. Education Materials Nausea and Vomiting, Adult Nausea is the feeling that you have an upset stomach or that you are about to vomit. Vomiting is when stomach contents are thrown up and out of the mouth as a result of nausea. Vomiting can make you feel weak and cause you to become dehydrated. Dehydration can make you feel tired and thirsty, cause you to have a dry mouth, and decrease how often you urinate. Older adults and people with other diseases or a weak disease-fighting system (immune system) are at higher risk for dehydration. It is important to treat your nausea and vomiting as told by your health care provider. Follow these instructions at home: Watch your symptoms for any changes. Tell your health care provider about them. Follow these instructions to care for yourself at home. Eating and drinking Take an oral rehydration solution (ORS). This is a drink that is sold at pharmacies and retail stores. Drink clear fluids slowly and in small amounts as you are able. Clear fluids include water, ice chips, low-calorie sports drinks, and fruit juice that has water added (diluted fruit juice). Eat bland, eajx-dw-ixsqge foods in small amounts as you are able. These foods include bananas, applesauce, rice, lean meats, toast, and crackers. Avoid fluids that contain a lot of sugar or caffeine, such as energy drinks, sports drinks, and soda. Avoid alcohol. Avoid spicy or fatty foods. General instructions Take ytpp-cot-jwunuwp and prescription medicines only as told by your health care provider. Drink enough fluid to keep your urine pale yellow. Wash your hands often using soap and water. If soap and water are not available, use hand dental practitioner. Make sure that all people in your household wash their hands well and often. Rest at home while you recover. Watch your condition for any changes. Breathe slowly and deeply when you feel nauseated. Keep all follow-up visits as told by your health care provider. This is important. Contact a health care provider if: Your symptoms get worse. You have new symptoms. You have a fever. You cannot drink fluids without vomiting. Your nausea does not go away after 2 days. You feel light-headed or dizzy. You have a headache. You have muscle cramps. You have a rash. You have pain while urinating. Get help right away if: You have pain in your chest, neck, arm, or jaw. You feel extremely weak or you faint. You have persistent vomiting. You have vomit that is bright red or looks like black coffee grounds. You have bloody or black stools or stools that look like tar. You have a severe headache, a stiff neck, or both. You have severe pain, cramping, or bloating in your abdomen. You have difficulty breathing, or you are breathing very quickly. Your heart is beating very quickly. Your skin feels cold and clammy. You feel confused. You have signs of dehydration, such as: ? Dark urine, very little urine, or no urine. ? Cracked lips. ? Dry mouth. ? Sunken eyes. ? Sleepiness. ? Weakness. These symptoms may represent a serious problem that is an emergency. Do not wait to see if the symptoms will go away. Get medical help right away. Call your local emergency services (911 in the [place] Do not drive yourself to the hospital. Summary Nausea is the feeling that you have an upset stomach or that you are about to vomit. As nausea getsworse, it can lead to vomiting. Vomiting can make you feel weak and cause you to become dehydrated. Follow instructions from your health care provider about eating and drinking to prevent dehydration. Take hrap-krc-nhjpkmo and prescription medicines only as told by your health care provider. Contact your health care provider if your symptoms get worse, or you have new symptoms. Keep all follow-up visits as told by your health care provider. This is important. This information is not intended to replace advice given to you by your health care provider. Make sure you discuss any questions you have with your health care provider. Document Released: 02/19/2006 Document Revised: 06/13/2019 Document Reviewed: 07/30/2018 [employer] Patient Education 2020 [employer] General Anesthesia, Adult, Care After This sheet gives you information about how to care for yourself after your procedure. Your health care provider may also give you more specific instructions. If you have problems or questions, contact your health care provider. What can I expect after the procedure? After the procedure, the following side effects are common: Pain or discomfort at the IV site. Nausea. Vomiting. Sore throat. Trouble concentrating. Feeling cold or chills. Weak or tired. Sleepiness and fatigue. Soreness and body aches. These side effects can affect parts of the body that were not involved in surgery. Follow these instructions at home: For at least 24 hours after the procedure: Have a responsible adult stay with you. It is important to have someone help care for you until youare awake and alert. Rest as needed. Do not: ? Participate in activities in which you could fall or become injured. ? Drive. ? Use heavy machinery. ? Drink alcohol. ? Take sleeping pills or medicines that cause drowsiness. ? Make important decisions or sign legal documents. ? Take care of children on your own. Eating and drinking Follow any instructions from your health care provider about eating or drinking restrictions. When you feel hungry, start by eating small amounts of foods that are soft and easy to digest (bland), such as toast. Gradually return to your regular diet. Drink enough fluid to keep your urine pale yellow. If you vomit, rehydrate by drinking water, juice, or clear broth. General instructions If you have sleep apnea, surgery and certain medicines can increase your risk for breathing problems. Follow instructions from your health care provider about wearing your sleep device: ? Anytime you are sleeping, including during daytime naps. ? While taking prescription pain medicines, sleeping medicines, or medicines that make you drowsy. Return to your normal activities as told by your health care provider. Ask your health care provider what activities are safe for you. Take inwy-aht-mqaijnd and prescription medicines only as told by your health care provider. If you smoke, do not smoke without supervision. Keep all follow-up visits as told by your health care provider. This is important. Contact a health care provider if: You have nausea or vomiting that does not get better with medicine. You cannot eat or drink without vomiting. You have pain that does not get better with medicine. You are unable to pass urine. You develop a skin rash. You have a fever. You have redness around your IV site that gets worse. Get help right away if: You have difficulty breathing. You have chest pain. You have blood in your urine or stool, or you vomit blood. Summary After the procedure, it is common to have a sore throat or nausea. It is also common to feel tired. Have a responsible adult stay with you for the first 24 hours after general anesthesia. It is important to have someone help care for you until you are awake and alert. When you feel hungry, start by eating small amounts of foods that are soft and easy to digest (bland), such as toast. Gradually return to your regular diet. Drink enough fluid to keep your urine pale yellow. Return to your normal activities as told by your health care provider. Ask your health care provider what activities are safe for you. This information is not intended to replace advice given to you by your health care provider. Make sure you discuss any questions you have with your health care provider. Document Released: 05/28/2001 Document Revised: 02/22/2018 Document Reviewed: 10/05/2017 [employer] Patient Education 2020 [employer]. Diagnostic Laparoscopy, Care After This sheet gives you information about how to care for yourself after your procedure. Your health care provider may also give you more specific instructions. If you have problems or questions, contact your health care provider. What can I expect after the procedure? After the procedure, it is common to have: Mild discomfort in the abdomen. Sore throat. Women who have laparoscopy with pelvic examination may have mild cramping and fluid coming from thevagina for a few days after the procedure. Follow these instructions at home: Medicines Take lnho-gbw-mpvxnsc and prescription medicines only as told by your health care provider. If you were prescribed an antibiotic medicine, take it as told by your health care provider. Do notstop taking the antibiotic even if you start to feel better. Driving Do not drive for 24 hours if you were given a medicine to help you relax (sedative) during your procedure. Do not drive or use heavy machinery while taking prescription pain medicine. Bathing Do not take baths, swim, or use a hot tub until your health care provider approves. You may take showers. Incision care Follow instructions from your health care provider about how to take care of your incisions. Make sure you: ? Wash your hands with soap and water before you change your bandage (dressing). If soap and water are not available, use hand dental practitioner. ? Change your dressing as told by your health care provider. ? Leave stitches (sutures), skin glue, or adhesive strips in place. These skin closures may need to stay in place for 2 weeks or longer. If adhesive strip edges start to loosen and curl up, you may trim the loose edges. Do not remove adhesive strips completely unless your health care provider tells you to do that. Check your incision areas every day for signs of infection. Check for: ? Redness, swelling, or pain. ? Fluid or blood. ? Warmth. ? Pus or a bad smell. Activity Return to your normal activities as told by your health care provider. Ask your health care provider what activities are safe for you. Do not lift anything that is heavier than 10 lb (4.5 kg), or the limit that you are told, until your health care provider says that it is safe. General instructions To prevent or treat constipation while you are taking prescription pain medicine, your health care provider may recommend that you: ? Drink enough fluid to keep your urine pale yellow. ? Take idoq-nnt-tamdowg or prescription medicines. ? Eat foods that are high in fiber, such as fresh fruits and vegetables, whole grains, and beans. ? Limit foods that are high in fat and processed sugars, such as fried and sweet foods. Do not use any products that contain nicotine or tobacco, such as cigarettes and e-cigarettes. If you need help quitting, ask your health care provider. Keep all follow-up visits as told by your health care provider. This is important. Contact a health care provider if: You develop shoulder pain. You feel lightheaded or faint. You are unable to pass gas or have a bowel movement. You feel nauseous or you vomit. You develop a rash. You have redness, swelling, or pain around any incision. You have fluid or blood coming from any incision. Any incision feels warm to the touch. You have pus or a bad smell coming from any incision. You have a fever or chills. Get help right away if: You have severe pain. You have vomiting that does not go away. You have heavy bleeding from the vagina. Any incision opens. You have trouble breathing. You have chest pain. Summary After the procedure, it is common to have mild discomfort in the abdomen and a sore throat. Check your incision areas every day for signs of infection. Return to your normal activities as told by your health care provider. Ask your health care provider what activities are safe for you. This information is not intended to replace advice given to you by your health care provider. Make sure you discuss any questions you have with your health care provider. Document Released: 01/31/2016 Document Revised: 02/01/2018 Document Reviewed: 08/15/2017 [employer] Patient Education 2020 [employer] Additional Information VACCINATE! IT SAVES LIVES! Members of the community who have not yet received the COVID-19 vaccine and would like to receive it can visit one of [facility] vaccine clinics. There are many vaccine clinic locations within the [facility]. For locations and available times, please visit [email or web address]/. It is important to note that some COVID mobile vaccine clinics are held outdoors and may be canceled in rainy or stormy conditions. To learn more about pediatric vaccinations (ages 5-11), we invite you to visit the [facility] webpage. [email or web address] learn more about the COVID-19 vaccine, we invite you to visit the CDC website for a list of frequently asked questions.https://www.cdc.gov/coronavirus/2019-ncov/vaccines/faq.html [employer] Patient Portal Access Instructions: Stay connected with your healthcare team and access your personal medical information anytime with the [employer] Patient Portal. Please follow the directions below to create your [employer] account: 1.Access the email account you provided upon registration to the hospital/physician office.2.Look for an invitation email from [facility].3.Open the email and access the invitation link: AcceptInvitation to [employer].4.Fill in the required king to create your account. To access your account, visit [email or web address]. Click the blue button labeled Access Patient Portal and then log in with the username and password that you created in the steps above. You will be able to view your test results, lab results, a summary of your visits, upcoming appointments and more. There is also a convenient messaging option where you can send secure messages to your p lizbetvider. In addition, you will have the ability to download any documents or summaries to your computer and/or send the information securely to a physician. Remember that your healthcare information is confidential, so carefully consider who you will allowto register on the [facility] for access to your information. You can also access the [facility] on the [employer] richard. Simply click on Patient Portal and then log into your account. If you would like to receive a full copy of your medical records, please contact the [facility] Medical Records Department by calling [phone], Sunday through Sunday between 8 a.m. and 4:30 p.m. HOW TO SAFELY DISPOSE OF PRESCRIPTION MEDICATIONS Please use one of the following methods to safely dispose of your unused medications. 1.Use a drug disposal kit: the drug disposal pouch allows you to safely discard your old and unuseddrugs. Ask your nurse to give you one when you are discharged.2.Visit a local take-back location: Many local pharmacies and police departments have programs that collect old and unwanted prescriptiondrugs. Call your local pharmacy or go to http://[employer].REALTIME.CO/8O0Et3c to find one close to you.3.Make use of household items: Use cat litter or old coffee grounds to dispose medications if other options arenot available. Mix your drugs with these household products, seal them in an airtight container andthrow it into the garbage. Call [facility]: [phone] to be sure your drugs can be disposed of in this way. Some medicines may require a different approach.4.Never flush your medications down the toilet. IF YOU HAVE BEEN PRESCRIBED AN OPIOID FOR PAIN If you have been prescribed an opioid (such as hydrocodone, oxycodone or morphine), it is critical to understand the possible side effects and risks of opioid pain medications. Even when taken as directed, opioids can have several side effects including: Tolerance, meaning you might need to take more of a medication for the same pain relief. Nausea, vomiting and/or constipation. Sleepiness, dizziness, dry mouth, confusion, depression or itching. Physical dependence, meaning you have withdrawal symptoms when a medication is stopped, can develop within a few days. KNOW YOUR RESPONSIBILITIES It is important to know exactly how much and how often to take the opioid pain medications you are prescribed. Never take opioids in higher amounts or more often than prescribed. Do not combine opioids with alcohol or other drugs that cause drowsiness, such as benzodiazepines, also known as benzos, including diazepam and alprazolam, muscle relaxants or sleep aids. Never sell or share prescription opioids. This is illegal. Store opioids in a secure place and out of reach of others (including children, family, friends and visitors). The last page of this document has been signed and retained as a CHART COPY. Signatures Patient Education Materials Nausea and Vomiting, Adult General Anesthesia, Adult, Care After Diagnostic Laparoscopy, Care After Medication Leaflets My discharge plan and instructions have been reviewed and explained to me and ISANTIAGO DORY M understand my current condition and have read and understand these discharge instructions. I have received a written copy of the plan/instructions. If I have questions, I am aware that I should contact my doctor. 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 She currently has a progesterone containing IUD in place. Other than being overweight andhaving diabetes she is generally healthy. REVIEW OF SYSTEMS: Review of systems unremarkable. ACTIVE PROBLEMS: (16) Body mass index 30+ - obesity (118364492) Carpal tunnel syndrome, right (24516585) Diabetes (979435540) Diabetes mellitus type 1 (497452109) Encounter for general counseling and advice on contraceptive management (746506053) Encounter for IUD insertion (927483630) Encounter for supervision of normal in multigravida in third trimester (250418817) Fatty liver (285597266) GERD (gastroesophageal reflux disease) (878125741) Gestational diabetes requiring insulin (0105028208) Group B streptococcus (487342136) Hypertension (3710907158) IUD check up (5345730184) exam (779887527) state (704917535) Type 2 diabetes mellitus (203261968) MEDICATIONS: Active Inpt Meds: cefOXitin (Mefoxin) Start: 05/01/24 6:00:00 EST, Dose = 2 gram(s), = 50 mL, IV Piggyback, PREOP pharm, Rate: 100 mL/hr, Infuse over: 30 minute(s), 0 Active PRN Meds: None One Time Meds: None Active IV Meds: Lactated Ringers Infusion 1000 mL Start: 05/01/24 6:59:00 EST, Rate: 20 mL/hr, 05/01/24 6:59:00 EST ALLERGIES: (3) Bydureon SEROquel sulfa drugs FAMILY HISTORY: No significant family history pertaining to this admission SOCIAL HISTORY: Non-smoker, no toxic habits, no alcohol use. Stable home and family PHYSICAL EXAM: VITALS: [id number]ucZz(kg) 05/01 06:3035.9--[id number]/87771.0 24 Hr Tmax: 35.9 at 05/01 06:30 36 Hr Tmax: 35.9 at 05/01 06:30 Vital Signs are the last 5 in the past 48 hours. Weights display the last 5 within 7 days. Initial Wt: 05/01 122.0 kg 268 lb Current Wt: 05/01 122.0 kg 268 lb GENERAL: Normocephalic HEENT: Normocephalic CARDIOVASCULAR: Regular rate and rhythm normal blood pressure RESPIRATORY: Clear bilaterally ABDOMEN: Soft nontender no masses or scars EXREMETIES: No edema or deformity NEUROLOGICAL: Intact PSYCHIATRIC: No signs of acute depression or anxiety LABS: 36hr Labs 05/01 0630 Blood Glucose, [id number] Blood Glucose, Cogefsyth355J 05/01 0615 testSee Flowsheet TestSee Flowsheet DIAGNOSTICS: No significant diagnostics pertaining to this admission IMPRESSION: 39-year-old requesting permanent sterilization. PLAN: Plan for laparoscopic bilateral salpingectomy. Permanence of the procedure, risks, and postsurgical expectations were reviewed with the patient today. She plans to leave her progesterone containing IUD in place to help control her menses. All questions were answered and consents have been obtained. Digitally Signed by GEORGE DE OLIVEIRA MD on 05/01/2024 07:13 AM [facility]02-27-2025 Anesthesiology Consult note Patient: DORY HENDERSON Age: 39 years Sex: Female : 1985 Associated Diagnoses: None Author: BELTRAN LÓPEZ Preoperative Information Time of last food or liquid consumption: 05/01/2024 00:00:00 Anesthesia history Patient's history: negative. Family's history: negative. Review of Systems Ear/Nose/Mouth/Throat: Negative. Respiratory: Negative. Cardiovascular: htn. Gastrointestinal: Reflux, SMO. Genitourinary: Negative. Endocrine: DM. Musculoskeletal: Negative. Integumentary: Negative. Neurologic: Negative. Health Status Allergies: Allergic Reactions (Selected) Severity Not Documented Bydureon- Swelling and redness. SEROquel- No reactions were documented. Sulfa drugs- No reactions were documented., Allergies (3) ActiveSeverityReaction SEROquelNone Documented sulfa drugsNone Documented Bydureonswelling and redness Current medications: (Selected) Inpatient Medications Ordered Lactated Ringers Infusion 1000 mL: 20 mL/hr, Intravenous Mefoxin: 2 gram(s), 50 mL, 100 mL/hr, IV Piggyback, PREOP pharm Prescriptions Prescribed amLODIPine 5 mg oral tablet: 5 mg, 1 tab(s), Oral, qDay, for 30 day(s), 30 tab(s), 5 Refill(s) Documented Medications Documented MetFORMIN (Eqv-Glucophage XR) 500 mg oral tablet, EXTENDED RELEASE: 1,000 mg, 2 tab(s), BID, 0 Refill(s) Multivitamins with Vitamin B Complex, Vitamin C, Minerals and L- Methylfolate oral capsule...: 1 cap(s), Oral, Daily, 0 Refill(s) busPIRone 15 mg oral tablet: 15 mg, 1 tab(s), Oral, TID, 0 Refill(s) clonazePAM 0.5 mg oral tablet: take 1 tablet by mouth daily if needed for anxiety pantoprazole 40 mg oral enteric coated tablet: take 1 tablet by mouth once daily, Medications (2) Active Scheduled: (1) ceFOXitin 2 gram(s) 50 mL, IV Piggyback, PREOP pharm Continuous: (1) Lactated Ringers Infusion 1000 mL 1,000 mL, Intravenous, 20 mL/hr PRN: (0) Problem list: Medical Body mass index 30+ - obesity / SNOMED CT 424245227 / Confirmed Carpal tunnel syndrome, right / SNOMED CT 83115953 / Confirmed Diabetes mellitus type 1 / SNOMED CT 036463880 / Confirmed Gestational diabetes requiring insulin / SNOMED CT 6510839188 / Confirmed Group B streptococcus / SNOMED CT 327375750 / Confirmed Hypertension / SNOMED CT 0274696701 / Confirmed IUD check up / SNOMED CT 1260318071 / Confirmed Encounter for supervision of normal in multigravida in third trimester / SNOMED CT 089935246 / Confirmed Encounter for IUD insertion / SNOMED CT 191548653 / Confirmed Encounter for general counseling and advice on contraceptive management / SNOMED CT 621235914 / Confirmed exam / SNOMED CT 738200691 / Confirmed state / SNOMED CT 413188277 / Confirmed Type 2 diabetes mellitus / SNOMED CT 346966110 / Confirmed, Active Problems (16) Body mass index 30+ - obesity Carpal tunnel syndrome, right Diabetes Diabetes mellitus type 1 Encounter for general counseling and advice on contraceptive management Encounter for IUD insertion Encounter for supervision of normal in multigravida in third trimester Fatty liver GERD (gastroesophageal reflux disease) Gestational diabetes requiring insulin Group B streptococcus Hypertension IUD check up exam state Type 2 diabetes mellitus Histories Past Medical History: Resolved (340819034): Onset on 03/08/2023 at 38 years. Resolved on 12/06/2023 at 38 years. Comments: 12/31/2023 EDT 9:08 [place] - Eve Buchanan LPN 3wk PP visit. (817769275): Onset on 01/29/2023 at 37 years. Resolved in the month of 03/2023 at 38 years. ([id number]): Onset on 07/23/2020 at 35 years. Resolved on 04/11/2021 at 36 years. Comments: 07/29/2020 EDT 8:51 EDT - SYSTEM System added from documentation. Status documented as Yes on Admission 04/28/2021 EST 9:57 EST - Eve Buchanan LPN postprtum visit 05/26/2021 EDT 9:43 EDT - Eve Buchanan LPN 6wk PP visit ([id number]): Onset on 07/29/2019 at 34 years. Resolved on 04/27/2020 at 35 years. Comments: 05/20/2020 EDT 10:32 EDT - Yanelis Kirkpatrick RNpaper hanger ([id number]): Onset on 06/05/2012 at 27 years. Resolved in 2013 at 28 years. Poor appetite (294817166): Resolved. At risk for ineffective ([id number]): Resolved. Diabetes mellitus type 1 (899641949): Resolved. Family History: Cancer Father () Hypertension Mother Father () Arthritis Mother Heart attack Father () Grandparent () Depression Mother Brother Procedure history: Laparoscopic salpingectomy (463864535) on 05/01/2024 at 39 Years. Dilation and curettage of uterus after delivery (6548263027) on 04/12/2021 at 36 Years. Colonoscopy (205125268) on 04/04/2011 at 26 Years. [place] tooth (43455492). EGD - esophagogastroduodenoscopy (3734646750). Social History: Social & Psychosocial Habits Alcohol 05/01/2024 Use: Current Comment: on occassion - 07/29/2020 08:48 - Eve Buchanan LPN 05/01/2024 Use: Never Substance Abuse 05/01/2024 Use: Never 05/01/2024 Use: Current Type: Marijuana Frequency: 1-2 times per year Tobacco 05/01/2024 Tobacco Use: Never (less than 100 in l 05/01/2024 Tobacco Use: Never (less than 100 in l 05/01/2024 Tobacco Use: Never (less than 100 in l Nutrition/Health 05/01/2024 Caffeine intake amount: coffee/pop/tea- 1-2cups/day Physical Examination Vital Signs 05/01/2024 6:30 EST Temperature Temporal Artery 35.9 DegC Peripheral Pulse Rate 93 bpm Respiratory Rate 14 br/min Systolic Blood Pressure Non-Invasive 145 mmHg HI Diastolic Blood Pressure Non-Invasive 97 mmHg HI Vital Signs (last 24 hrs) Last Charted Temp Bcvsdxcs39.9 DegC (MAY 01 06:30) SBPH 145 mmHg (MAY 01 06:30) DBPH 97 mmHg (MAY 01 06:30) Measurements from flowsheet : Measurements 05/01/2024 6:30 EST Height 163 cm Admission Weight 122 kg [place] Body Weight 55.10 kg Pain assessment: Pain Assessment 05/01/2024 6:30 EST Primary Pain Intensity 0 Pain Scale Type 0-10 Pain scale . General: Alert and oriented. Airway: Normal temporomandibular joint mobility. Mallampati classification: II (soft palate, fauces, uvula visible). Head: Normocephalic. Dentition Evaluation: Own teeth. Neck: Non-tender. Respiratory: Lungs are clear to auscultation. Cardiovascular: Normal rate. Heart Sounds: Normal. Gastrointestinal: Soft. Musculoskeletal Normal range of motion. Integumentary: Intact. Neurologic: Alert, Oriented. Review / Management Results review: No qualifying data available , Lab results 05/01/2024 7:00 EST Lactated Ringers Injection Begin Bag 1,000 mL mL 05/01/2024 6:56 EST SN - Preop - CTm Pt in SDS Room 05/01/2024 6:16 SN - Preop - CTm Pt Ready for OR/Proced 05/01/2024 6:50 05/01/2024 6:40 EST Continuous IV Infusions lr Antecubital Right 05/01/2024 20 gauge Peripheral IV Activity: Insert new site Peripheral IV Dressing Condition: Clean, Dry, Intact Peripheral IV Dressing Activity: Applied, Transparent dressing Peripheral IV Line Status/Patency: Flushes easily Peripheral IV Line Care: Secured with tape Peripheral IV Site Condition: No complications Peripheral IV Equipment: Extension set Peripheral IV Number of Attempts: 1 05/01/2024 6:30 EST Blood Glucose, Capillary 113 mg/dL HI Height 163 cm Admission Weight 122 kg [place] Body Weight 55.10 kg Temperature Temporal Artery 35.9 DegC Peripheral Pulse Rate 93 bpm Respiratory Rate 14 br/min Systolic Blood Pressure Non-Invasive 145 mmHg HI Diastolic Blood Pressure Non-Invasive 97 mmHg HI Primary Pain Intensity 0 Pain Scale Type 0-10 Pain scale Heart Rhythm Regular Oxygen Therapy Room air Oxygen Saturation 97 % Bowel Sounds All Quadrants Present Urinary Elimination Voiding, no difficulties Skin Description Normal for ethnicity Skin Integrity Intact IV Present Present Characteristics of Speech Clear Level of Consciousness Alert Affect/Behavior Appropriate Orientation Oriented x 4 Allergies Yes Anesthesia Extension Set Applied Yes Impregnator Helper On Yes Consent Form Signed Yes Patient Dressed In Hospital gown Pre-op Preparation Glasses removed, Jewelry removed CHG Preoperative Wash/Wipe Night before procedure, Day of procedure Preop Nasal Swab Povidone-Iodine History & Physical Update On Chart Yes History & Physical On Chart Yes Obstructive Sleep Apnea Assess Completed Yes Orientation Assessment Oriented x 4 Belongings At Bedside Glasses, Pants, Shirt, Shoes, Socks, Sweatshirt, Undergarments, Watch Positioning Repositions self Activity Status ADL Awake, Up ad carmen Sequential Compression Device bilateral knee high applied/on NPO Status Maintained, More than 8 hours Standard Safety ID band on, Allergy Band on, Call device within reach, Bed in low position, Wheels locked, Visitor at bedside, Safety level maintained Allergy Band on and Verified Yes Patient ID Band on and Verified Yes Implants Verified Yes Site Verified by Patient/Family Yes Anesthesia Consent Signed Yes Blood Consent Signed Yes Last Fluid Intake 04/30/2024 23:30 Last Food Intake 04/30/2024 18:00 Last Void 05/01/2024 6:31 05/01/2024 6:29 EST Designated Person #1 We May Share PHI Ricardo CABRALES [phone] Designated Person #1 Relationship Spouse Privacy Restrictions Requested None Status No, per patient Sensory Deficits None Sleep Apnea Snore No Sleep Apnea Tired No Sleep Apnea Obstruction No Sleep Apnea Pressure Yes Sleep Apnea BMI Yes Sleep Apnea Age No Sleep Apnea Neck Yes Sleep Apnea Gender No Sleep Apnea Score 3 Diagnosed With Sleep Apnea No Advanced Directives No - refuses information Infectious Disease Symptoms Patient states no symptoms Infectious Disease Recent Exposure No Alcohol and Drug Use No Employee of Institutional Living No Health Care Employee No History of Exposure to TB No History of Positive Chest X-Ray for TB No History of Positive TB Skin Test No Homeless No Known Immunosuppression No Recent Immigrant No Resident of Institutional Living No Bloody Sputum No Fatigue No Fever No Loss of Appetite No Night Sweats No Persistent Cough > 3 Weeks No Weight Loss No Patient Aware Date/Time Of Surgery Yes Previous Surgery At This Facility Yes Pre-Op Patient Education NPO after midnight, No smoking after midnight, No makeup, No jewelry, Responsible [employer] Party, Aware of surgery location, Pre-op education done, 1 bottle CHG wash with instructionsgiven, Instructed to take ordered medications, SSI prevention handout given SN - Preprocedure Comments Spoke with patient, Verbalizes/Nonverbally indicates understanding, Other: amlodipine, pantoprazole Barriers to Learning None evident Teaching Method Explanation Preferred Spoken Language [place] Preferred Written Language [place] Teaching Evaluation No further teaching needed Safety Brochure Information Reviewed Yes [facility] Video Viewed No Patient's Current Physicians DR LUCRETIA ACOSTA - PCP Discharge To, Anticipated Home independently Prev Test Positive/Diagnosis w/COVID-19 No Current Quarantine/Isolated any Illness No Any Contact with Sick Animals/Birds No Traveled Anywhere in Last 30 Days No Lost Weight Unintentionally Recently No Eat Poorly Due to Decreased Appetite No Total MST Score 0 No Personal Devices, Patient Valuables Glasses Anesthesia/Transfusions None Admission Note-Nursing Same Day Patient History 05/01/2024 6:15 EST Test Urine Negative test (u) int test (u) int QC PRGUN Negative QC PRGUP Positive . Assessment and Plan [place] [employer] Anesthesiologists (ASA) physical status classification: Class III. Anesthetic Preoperative Plan Premedication: intravenous. Anesthetic technique: General. Induction: intravenously. Maintenance airway: Oral endotracheal tube. Postoperative pain management: Per surgeon. Risks discussed: nausea, vomiting, sore throat. Informed consent: signed by patient. Digitally Signed by BELTRAN LÓPEZ on 05/01/2024 07:09 AM [facility]10-05-2024 Hospital Discharge instructions Patient Education 12/08/2023 11:10:12 Hypertension Hypertension hypertension is high blood pressure that remains higher than normal after childbirth. You may not realize that you have hypertension if your blood pressure is not being checked regularly. In most cases, hypertension will go away on its own, usually within a week of delivery. However, for some women, medical treatment is required to prevent serious complications, such as seizures or stroke. What are the causes? This condition may be caused by one or more of the following: Hypertension that existed before (chronic hypertension). Hypertension that comes on as a result of (gestational hypertension). Hypertensive disorders during (preeclampsia) or seizures in women who have high blood pressure during (eclampsia). A condition in which the liver, platelets, and red blood cells are damaged during (HELLP syndrome). A condition in which the thyroid produces too much hormones (hyperthyroidism). Other rare problems of the nerves (neurological disorders) or blood disorders. In some cases, the cause may not be known. What increases the risk? The following factors may make you more likely to develop this condition: Chronic hypertension. In some cases, this may not have been diagnosed before . Obesity. Type 2 diabetes. Kidney disease. History of preeclampsia or eclampsia. Other medical conditions that change the level of hormones in the body (hormonal imbalance). What are the signs or symptoms? As with all types of hypertension, hypertension may not have any symptoms. Depending on how high your blood pressure is, you may experience: Headaches. These may be mild, moderate, or severe. They may also be steady, constant, or sudden in onset (thunderclap headache). Changes in your ability to see (visual changes). Dizziness. Shortness of breath. Swelling of your hands, feet, lower legs, or face. In some cases, you may have swelling in more than one of these locations. Heart palpitations or a racing heartbeat. Difficulty breathing while lying down. Decrease in the amount of urine that you pass. Other rare signs and symptoms may include: Sweating more than usual. This lasts longer than a few days after delivery. Chest pain. Sudden dizziness when you get up from sitting or lying down. Seizures. Nausea or vomiting. Abdominal pain. How is this diagnosed? This condition may be diagnosed based on the results of a physical exam, blood pressure measurements, and blood and urine tests. You may also have other tests, such as a CT scan or an MRI, to check for other problems of hypertension. How is this treated? If blood pressure is high enough to require treatment, your options may include: Medicines to reduce blood pressure (antihypertensives). Tell your health care provider if you are or if you plan to breastfeed. There are many antihypertensive medicines that are safe to take while . Stopping medicines that may be causing hypertension. Treating medical conditions that are causing hypertension. Treating the complications of hypertension, such as seizures, stroke, or kidney problems. Your health care provider will also continue to monitor your blood pressure closely until it is within a safe range for you. Follow these instructions at home: Take zzkt-qdf-dbebiyl and prescription medicines only as told by your health care provider. Return to your normal activities as told by your health care provider. Ask your health care provider what activities are safe for you. Do not use any products that contain nicotine or tobacco, such as cigarettes and e-cigarettes. If you need help quitting, ask your health care provider. Keep all follow-up visits as told by your health care provider. This is important. Contact a health care provider if: Your symptoms get worse. You have new symptoms, such as: ?A headache that does not get better. ?Dizziness. ?Visual changes. Get help right away if: You suddenly develop swelling in your hands, ankles, or face. You have sudden, rapid weight gain. You develop difficulty breathing, chest pain, racing heartbeat, or heart palpitations. You develop severe pain in your abdomen. You have any symptoms of a stroke. BE FAST is an easy way to remember the main warning signs of astroke: ?B - Balance. Signs are dizziness, sudden trouble walking, or loss of balance. ?E - Eyes. Signs are trouble seeing or a sudden change in vision. ?F - Face. Signs are sudden weakness or numbness of the face, or the face or eyelid drooping on oneside. ?A - Arms. Signs are weakness or numbness in an arm. This happens suddenly and usually on one side of the body. ?S - Speech. Signs are sudden trouble speaking, slurred speech, or trouble understanding what people say. ?T - Time. Time to call emergency services. Write down what time symptoms started. You have other signs of a stroke, such as: ?A sudden, severe headache with no known cause. ?Nausea or vomiting. ?Seizure. These symptoms may represent a serious problem that is an emergency. Do not wait to see if the symptoms will go away. Get medical help right away. Call your local emergency services (911 in the [place] Do not drive yourself to the hospital. Summary hypertension is high blood pressure that remains higher than normal after childbirth. In most cases, hypertension will go away on its own, usually within a week of delivery. For some women, medical treatment is required to prevent serious complications, such as seizures orstroke. This information is not intended to replace advice given to you by your health care provider. Make sure you discuss any questions you have with your health care provider. Document Released: 10/23/2014 Document Revised: 03/28/2019 Document Reviewed: 12/10/2017 [employer] Patient Education 2019 [employer]. 12/08/2023 11:10:11 Hemorrhage Hemorrhage hemorrhage is excessive blood loss after childbirth. Vaginal bleeding after delivery is normal and should be expected. Bleeding (lochia) will occur for several days after childbirth. This can be expected with normal vaginal deliveries and deliveries. However, hemorrhage is a potentially serious condition. What are the causes? This condition is caused by: A loss of muscle tone in the uterus after childbirth. This can be caused by: ?An abnormal placenta. ?Infection. ?Bladder swelling (distension). Failure to deliver all of the placenta or the retention of clots. Wounds in the canal caused by delivery of the fetus. Infection of the uterus. Infection of tissue around the fetus. A tear in the uterus. Tearing of the vagina or cervix during delivery. A maternal bleeding disorder that prevents blood from clotting (rare). What increases the risk? This condition is likely to develop in people who: Have a history of hemorrhage. Had a delivery that lasted longer than usual. Have an excess of amniotic fluid in the amniotic sac (polyhydramnios), leading the uterus to stretch too much. Have delivered quintuplets or more babies. Had high blood pressure, seizures, or coma during . Had a condition called preeclampsia or eclampsia during . Had problems with the placenta. Had complications during labor or delivery. Are obese. Are 40 years old or older. Are or . What are the signs or symptoms? Symptoms of this condition include: Passing large clots or pieces of tissue. These may be small pieces of placenta left after delivery. Soaking more than one sanitary pad per hour for several hours. Heavy, bright-red bleeding that occurs 4 days or more after delivery. Discharge that has a bad smell. An unexplained fever. Nausea or vomiting. Pain or swelling near the vagina or perineum. A drop in blood pressure. Lightheadedness or fainting. Shortness of breath. A fast heart rate that happens with very little activity. Signs of shock, such as: ?Blurry vision. ?Chills. ?Dizziness. ?Weakness. How is this diagnosed? This condition may be diagnosed based on: Your symptoms. A physical exam of your perineum, vagina, cervix, and uterus. Tests, including: ?Blood pressure and pulse measurements. ?Blood tests. ?Blood clotting tests. ?Ultrasonography. How is this treated? Treatment for this condition depends on the severity of your symptoms. It may include: Uterine massage. Medicines to help the uterus contract. Blood transfusions. Fluids given through the vein. A medical procedure to compress arteries supplying the uterus. Sometimes bleeding occurs if portions of the placenta are left behind in the uterus after delivery.If this happens, a curettage or scraping of the inside of the uterus must be done (rare). This usually stops the bleeding. If curettage does not stop the bleeding, surgery may be done to remove the uterus (hysterectomy), but this rarely occurs. If bleeding is due to clotting or bleeding problems that are not related to the , other treatments may be needed. Follow these instructions at home: Limit your activity as directed by your health care provider. Your health care provider may order bed rest (getting up to go to the bathroom only) or may allow you to continue light activity. Keep track of the number of pads you use each day and how soaked (saturated) they are. Write down this information. Do not use tampons. Do not douche or have sexual intercourse until your health care provider approves. Drink enough fluids to keep your urine clear or pale yellow. Get enough rest. Eat foods that are rich in iron, such as spinach, red meat, and legumes. Take any ycer-efh-pelchxs and prescription medicines only as told by your health care provider. Keep all follow-up visits as told by your health care provider. This is important. Get help right away if: You experience severe cramps in your stomach, back, or abdomen. You have a fever. You pass large clots or tissue. Save any tissue for your health care provider to look at. Your bleeding increases. You have heavy bleeding that soaks one pad per hour for 2 hours in a row. You faint or become dizzy, weak, or lightheaded. Your sanitary pad count per hour is increasing. You are urinating less than usual or not at all. You have shortness of breath. Your heart rate is faster than usual. You have sudden chest pain. This information is not intended to replace advice given to you by your health care provider. Make sure you discuss any questions you have with your health care provider. Document Released: 05/11/2004 Document Revised: 02/01/2018 Document Reviewed: 09/22/2016 [employer] Patient Education 2020 [employer]. 12/08/2023 11:10:09 7- Home Care Instructions After Delivery 04/2019 (CUSTOM) Home Care Instructions After Delivery After discharge you may discover that you still have questions about body changes, activity, and care during the next few weeks. The following information should be helpful in answering many of your questions. ACTIVITY Resume your daily activities at home gradually. Allow time for rest periods during the day Avoid heavy lifting (more than 10 pounds/4.5 kilograms) and strenuous work or sports. If you had a , you should refrain from vacuuming, stair-climbing, and driving a car for 2 to 3 weeks. VAGINAL FLOW & RETURN OF MENSES Vaginal flow may continue for 4 to 6 weeks after delivery. Usually the amount decreases and the color of blood gets oracle forms developer. Bright red and increased flow may reoccur if you have been too active. Lie down, rest, and call your caregiver if you are soaking more than 1 pad an hour or passing largeclots. Menstrual period will usually return 6 to 8 weeks after delivery. PERINEAL CARE Use the doyle-bottle and change sanitary pads each time you go to the bathroom. Use towelettes in place of toilet paper until stitches are healed. Continue to use tucks and/or spray dermoplast. Lidocaine cream for episiotomy pain with your care givers approval. Do not use tampons or douches until vaginal bleeding has stopped (about 4 weeks). No Sexual intercourse until seen by physician. INCISION (CUT BY THE SURGEON) CARE Following , shower as desired but try to keep your incision dry. A small amount of clear or pink drainage is normal. The incision site will be tender for several weeks. Take prescription or wxqq-kxg-hekgxji medications for pain with your care givers approval. Contact your caregiver if the drainage increases, becomes foul smelling, the incision reddens, or you develop a fever. BOWELS/HEMORRHOIDS Try to avoid constipation by increasing the fluids and fiber in your diet. Drink at least 6 to 8 glasses of non-caffeinated fluids per day. Include whole grains, raw fruits and vegetables in your diet. Avoid straining when trying to pass a stool. Kutw-qhd-xqfcucy medications, stool softeners, can be used. Check with your caregiver. NUTRITION Eat a well-balanced diet that includes the basic food groups. Do not try to lose weight quickly by drastically cutting back on calories. EXERCISES Kegel exercises Start this exercise right after delivery. You can do it while standing, sitting, or lying down. Tighten your stomach muscles and the muscles surrounding your canal. Hold for a few seconds and then relax. Do Kegel exercises when you take a sitz bath. Repeat often during the day. Choose specialtimes during the day when you will remember to do this (for example, when using the bathroom, turning the water faucet on, etc.). Repeat 5 times each time. Make Kegel exercises a part of your daily routine to maintain the tone of muscles that support your vagina, bladder, and bowels. SELF BREAST EXAMINATION A self breast exam needs to be an important part of every woman's self-care. Do your self breast exam once a month, 5 to 7 days after your period begins, unless you are . Do self breast exams at the same time of the month each month, on a day of your choice. Any lump, bump or discharge should be reported to your caregiver. SEEK MEDICAL CARE IMMEDIATELY IF YOU NOTICE: Sanitary pad soaked with blood in 1 hour or less. Severe lower abdominal pain or cramping. Foul-smelling discharge from vagina. Increased rather than decreased pain around stitches and/or swelling, redness or hardness in area. Pain and/or redness in calf of the leg. Nausea with vomiting for 12 hours. Sudden, severe chest pain. Shortness of breath. Painful urination. Severe headache. Area of the breast is red and sore and you have a fever. (You may feel like you have flu symptoms.) Follow Up Care 12/06/2023 09:22:35 With:[facility] Address: [address] [place] [id number]- When:Within 6 Week(s) Comments:Follow-up as needed [facility] 10-05-2024 Note Discharge Instructions Thank you for allowing [facility] to assist you with your healthcare needs. The following is importantdischarge information regarding your hospital visit. Your Care Team BROOKS ACOSTA MD What to do next Follow Up Appointments Follow Up with [facility] [employer] When:In 6 weeks Where:[address] [place] [address]- Additional Information: Follow-up as needed Someone Will Contact You Regarding These Home Health Referrals No home referrals have been ordered for you. No one will call you. The Following Activity and Diet Have Been Ordered for You No qualifying data available. No qualifying data available. The Following Equipment Has Been Ordered for You No qualifying data available. The Following Treatments Have Been Arranged for You Discharge Labs No qualifying data available. Discharge Radiology No qualifying data available. Other Therapies No qualifying data available. Allergies Bydureon swelling and redness SEROquel sulfa drugs Medications Please ask your primary doctor or pharmacist before taking any other medication not listed, including over the counter drugs, herbal medications, vitamins and or supplements as they may interact withyour home medications. What How Much When Instructions Last Dose New ferrous sulfate (IRON (ferrous sulfate 325 mg) 65 mg oral tablet) 1 tab(s) by mouth Once a day Refills: 1 Take with food. Pickup at [facility] New ibuprofen (ibuprofen 600 mg oral tablet) 1 tab(s) by mouth Every 6 hours Duration: 10 Days Take with food or milk. Pickup at [facility] New senna (senna (sennosides) 8.6 mg oral tablet) 1 tab(s) by mouth Daily at bedtime Pickup at [facility] Unchanged amLODIPine (amLODIPine 5 mg oral tablet) 1 tab(s) by mouth Once a day Duration: 60 Days Unchanged busPIRone (busPIRone 10 mg oral tablet) 1 tab(s) Two (2) times a day Unchanged cholecalciferol (Vitamin D3) 2,000 Milligram Once a day Unchanged clonazePAM (clonazePAM 0.5 mg oral tablet) take 1 tablet by mouth daily if needed for anxiety Unchanged insulin isophane (NPH) (HumuLIN N KwikPen 100 units/ mL subcutaneous PEN) 60 unit(s) Subcutaneous Daily at bedtime Unchanged insulin lispro (HumaLOG) (insulin lispro (Humalog) 100 units/ mL injectable solution) 30 unit(s) Subcutaneous with dinner Unchanged insulin lispro (HumaLOG) (Insulin Lispro KwikPen 100 units/ mL injectable solution) 25 unit(s) with breakfast and lunch Unchanged metFORMIN (MetFORMIN (Eqv-Glucophage XR) 500 mg oral tablet, EXTENDED RELEASE) 2 tab(s) Two (2) times a day Unchanged multivitamin, ( Multivitamins with Vitamin B Complex, Vitamin C, Minerals and L-Methylfolate oral capsule) 1 cap by mouth Every day Unchanged pantoprazole (pantoprazole 40 mg oral enteric coated tablet) take 1 tablet by mouth once daily Pharmacy Information [facility]: [address] [place], [place] [id number] [phone] Please take this list to your next doctor s visit. Bring all medications you take, including over the counter medications, herbals and other supplements with you to your doctor s visit. Patients and families are reminded to discard old lists and to update any records with all medication providers or retail pharmacies. Education Materials Hypertension hypertension is high blood pressure that remains higher than normal after childbirth. You may not realize that you have hypertension if your blood pressure is not being checked regularly. In most cases, hypertension will go away on its own, usually within a week of delivery. However, for some women, medical treatment is required to prevent serious complications, such as seizures or stroke. What are the causes? This condition may be caused by one or more of the following: Hypertension that existed before (chronic hypertension). Hypertension that comes on as a result of (gestational hypertension). Hypertensive disorders during (preeclampsia) or seizures in women who have high blood pressure during (eclampsia). A condition in which the liver, platelets, and red blood cells are damaged during (HELLP syndrome). A condition in which the thyroid produces too much hormones (hyperthyroidism). Other rare problems of the nerves (neurological disorders) or blood disorders. In some cases, the cause may not be known. What increases the risk? The following factors may make you more likely to develop this condition: Chronic hypertension. In some cases, this may not have been diagnosed before . Obesity. Type 2 diabetes. Kidney disease. History of preeclampsia or eclampsia. Other medical conditions that change the level of hormones in the body (hormonal imbalance). What are the signs or symptoms? As with all types of hypertension, hypertension may not have any symptoms. Depending on how high your blood pressure is, you may experience: Headaches. These may be mild, moderate, or severe. They may also be steady, constant, or sudden in onset (thunderclap headache). Changes in your ability to see (visual changes). Dizziness. Shortness of breath. Swelling of your hands, feet, lower legs, or face. In some cases, you may have swelling in more than one of these locations. Heart palpitations or a racing heartbeat. Difficulty breathing while lying down. Decrease in the amount of urine that you pass. Other rare signs and symptoms may include: Sweating more than usual. This lasts longer than a few days after delivery. Chest pain. Sudden dizziness when you get up from sitting or lying down. Seizures. Nausea or vomiting. Abdominal pain. How is this diagnosed? This condition may be diagnosed based on the results of a physical exam, blood pressure measurements, and blood and urine tests. You may also have other tests, such as a CT scan or an MRI, to check for other problems of hypertension. How is this treated? If blood pressure is high enough to require treatment, your options may include: Medicines to reduce blood pressure (antihypertensives). Tell your health care provider if you are or if you plan to breastfeed. There are many antihypertensive medicines that are safe to take while . Stopping medicines that may be causing hypertension. Treating medical conditions that are causing hypertension. Treating the complications of hypertension, such as seizures, stroke, or kidney problems. Your health care provider will also continue to monitor your blood pressure closely until it is within a safe range for you. Follow these instructions at home: Take rqtb-hem-eassiqk and prescription medicines only as told by your health care provider. Return to your normal activities as told by your health care provider. Ask your health care provider what activities are safe for you. Do not use any products that contain nicotine or tobacco, such as cigarettes and e-cigarettes. If you need help quitting, ask your health care provider. Keep all follow-up visits as told by your health care provider. This is important. Contact a health care provider if: Your symptoms get worse. You have new symptoms, such as: ? A headache that does not get better. ? Dizziness. ? Visual changes. Get help right away if: You suddenly develop swelling in your hands, ankles, or face. You have sudden, rapid weight gain. You develop difficulty breathing, chest pain, racing heartbeat, or heart palpitations. You develop severe pain in your abdomen. You have any symptoms of a stroke. BE FAST is an easy way to remember the main warning signs of astroke: ? B - Balance. Signs are dizziness, sudden trouble walking, or loss of balance. ? E - Eyes. Signs are trouble seeing or a sudden change in vision. ? F - Face. Signs are sudden weakness or numbness of the face, or the face or eyelid drooping on one side. ? A - Arms. Signs are weakness or numbness in an arm. This happens suddenly and usually on one side of the body. ? S - Speech. Signs are sudden trouble speaking, slurred speech, or trouble understanding what peoplesay. ? T - Time. Time to call emergency services. Write down what time symptoms started. You have other signs of a stroke, such as: ? A sudden, severe headache with no known cause. ? Nausea or vomiting. ? Seizure. These symptoms may represent a serious problem that is an emergency. Do not wait to see if the symptoms will go away. Get medical help right away. Call your local emergency services (911 in the [place] Do not drive yourself to the hospital. Summary hypertension is high blood pressure that remains higher than normal after childbirth. In most cases, hypertension will go away on its own, usually within a week of delivery. For some women, medical treatment is required to prevent serious complications, such as seizures orstroke. This information is not intended to replace advice given to you by your health care provider. Make sure you discuss any questions you have with your health care provider. Document Released: 10/23/2014 Document Revised: 03/28/2019 Document Reviewed: 12/10/2017 [employer] Patient Education 2020 [employer] Hemorrhage hemorrhage is excessive blood loss after childbirth. Vaginal bleeding after delivery is normal and should be expected. Bleeding (lochia) will occur for several days after childbirth. This can be expected with normal vaginal deliveries and deliveries. However, hemorrhage is a potentially serious condition. What are the causes? This condition is caused by: A loss of muscle tone in the uterus after childbirth. This can be caused by: ? An abnormal placenta. ? Infection. ? Bladder swelling (distension). Failure to deliver all of the placenta or the retention of clots. Wounds in the canal caused by delivery of the fetus. Infection of the uterus. Infection of tissue around the fetus. A tear in the uterus. Tearing of the vagina or cervix during delivery. A maternal bleeding disorder that prevents blood from clotting (rare). What increases the risk? This condition is likely to develop in people who: Have a history of hemorrhage. Had a delivery that lasted longer than usual. Have an excess of amniotic fluid in the amniotic sac (polyhydramnios), leading the uterus to stretch too much. Have delivered quintuplets or more babies. Had high blood pressure, seizures, or coma during . Had a condition called preeclampsia or eclampsia during . Had problems with the placenta. Had complications during labor or delivery. Are obese. Are 40 years old or older. Are or . What are the signs or symptoms? Symptoms of this condition include: Passing large clots or pieces of tissue. These may be small pieces of placenta left after delivery. Soaking more than one sanitary pad per hour for several hours. Heavy, bright-red bleeding that occurs 4 days or more after delivery. Discharge that has a bad smell. An unexplained fever. Nausea or vomiting. Pain or swelling near the vagina or perineum. A drop in blood pressure. Lightheadedness or fainting. Shortness of breath. A fast heart rate that happens with very little activity. Signs of shock, such as: ? Blurry vision. ? Chills. ? Dizziness. ? Weakness. How is this diagnosed? This condition may be diagnosed based on: Your symptoms. A physical exam of your perineum, vagina, cervix, and uterus. Tests, including: ? Blood pressure and pulse measurements. ? Blood tests. ? Blood clotting tests. ? Ultrasonography. How is this treated? Treatment for this condition depends on the severity of your symptoms. It may include: Uterine massage. Medicines to help the uterus contract. Blood transfusions. Fluids given through the vein. A medical procedure to compress arteries supplying the uterus. Sometimes bleeding occurs if portions of the placenta are left behind in the uterus after delivery.If this happens, a curettage or scraping of the inside of the uterus must be done (rare). This usually stops the bleeding. If curettage does not stop the bleeding, surgery may be done to remove the uterus (hysterectomy), but this rarely occurs. If bleeding is due to clotting or bleeding problems that are not related to the , other treatments may be needed. Follow these instructions at home: Limit your activity as directed by your health care provider. Your health care provider may order bed rest (getting up to go to the bathroom only) or may allow you to continue light activity. Keep track of the number of pads you use each day and how soaked (saturated) they are. Write down this information. Do not use tampons. Do not douche or have sexual intercourse until your health care provider approves. Drink enough fluids to keep your urine clear or pale yellow. Get enough rest. Eat foods that are rich in iron, such as spinach, red meat, and legumes. Take any zhic-ows-qgizkzg and prescription medicines only as told by your health care provider. Keep all follow-up visits as told by your health care provider. This is important. Get help right away if: You experience severe cramps in your stomach, back, or abdomen. You have a fever. You pass large clots or tissue. Save any tissue for your health care provider to look at. Your bleeding increases. You have heavy bleeding that soaks one pad per hour for 2 hours in a row. You faint or become dizzy, weak, or lightheaded. Your sanitary pad count per hour is increasing. You are urinating less than usual or not at all. You have shortness of breath. Your heart rate is faster than usual. You have sudden chest pain. This information is not intended to replace advice given to you by your health care provider. Make sure you discuss any questions you have with your health care provider. Document Released: 05/11/2004 Document Revised: 02/01/2018 Document Reviewed: 09/22/2016 [employer] Patient Education 2020 [employer] Home Care Instructions After Delivery After discharge you may discover that you still have questions about body changes, activity, and care during the next few weeks. The following information should be helpful in answering many of your questions. ACTIVITY Resume your daily activities at home gradually. Allow time for rest periods during the day Avoid heavy lifting (more than 10 pounds/4.5 kilograms) and strenuous work or sports. If you had a , you should refrain from vacuuming, stair-climbing, and driving a car for 2 to 3 weeks. VAGINAL FLOW & RETURN OF MENSES Vaginal flow may continue for 4 to 6 weeks after delivery. Usually the amount decreases and the color of blood gets oracle forms developer. Bright red and increased flow may reoccur if you have been too active. Lie down, rest, and call your caregiver if you are soaking more than 1 pad an hour or passing largeclots. Menstrual period will usually return 6 to 8 weeks after delivery. PERINEAL CARE Use the doyle-bottle and change sanitary pads each time you go to the bathroom. Use towelettes in place of toilet paper until stitches are healed. Continue to use tucks and/or spray dermoplast. Lidocaine cream for episiotomy pain with your care givers approval. Do not use tampons or douches until vaginal bleeding has stopped (about 4 weeks). No Sexual intercourse until seen by physician. INCISION (CUT BY THE SURGEON) CARE Following , shower as desired but try to keep your incision dry. A small amount of clear or pink drainage is normal. The incision site will be tender for several weeks. Take prescription or kmdx-lbx-xspshbp medications for pain with your care givers approval. Contact your caregiver if the drainage increases, becomes foul smelling, the incision reddens, or you develop a fever. BOWELS/HEMORRHOIDS Try to avoid constipation by increasing the fluids and fiber in your diet. Drink at least 6 to 8 glasses of non-caffeinated fluids per day. Include whole grains, raw fruits and vegetables in your diet. Avoid straining when trying to pass a stool. Ewgn-dho-dhlpfll medications, stool softeners, can be used. Check with your caregiver. NUTRITION Eat a well-balanced diet that includes the basic food groups. Do not try to lose weight quickly by drastically cutting back on calories. EXERCISES Kegel exercises Start this exercise right after delivery. You can do it while standing, sitting, or lying down. Tighten your stomach muscles and the muscles surrounding your canal. Hold for a few seconds and then relax. Do Kegel exercises when you take a sitz bath. Repeat often during the day. Choose specialtimes during the day when you will remember to do this (for example, when using the bathroom, turning the water faucet on, etc.). Repeat 5 times each time. Make Kegel exercises a part of your daily routine to maintain the tone of muscles that support your vagina, bladder, and bowels. SELF BREAST EXAMINATION A self breast exam needs to be an important part of every woman's self-care. Do your self breast exam once a month, 5 to 7 days after your period begins, unless you are . Do self breast exams at the same time of the month each month, on a day of your choice. Any lump, bump or discharge should be reported to your caregiver. SEEK MEDICAL CARE IMMEDIATELY IF YOU NOTICE: Sanitary pad soaked with blood in 1 hour or less. Severe lower abdominal pain or cramping. Foul-smelling discharge from vagina. Increased rather than decreased pain around stitches and/or swelling, redness or hardness in area. Pain and/or redness in calf of the leg. Nausea with vomiting for 12 hours. Sudden, severe chest pain. Shortness of breath. Painful urination. Severe headache. Area of the breast is red and sore and you have a fever. (You may feel like you have flu symptoms.) Additional Information VACCINATE! IT SAVES LIVES! Members of the community who have not yet received the COVID-19 vaccine and would like to receive it can visit one of [facility] vaccine clinics. There are many vaccine clinic locations within the [facility]. For locations and available times, please visit www.gettheshot.coronavirus.[place].gov/. It is important to note that some COVID mobile vaccine clinics are held outdoors and may be canceled in rainy or stormy conditions. To learn more about pediatric vaccinations (ages 5-11), we invite you to visit the [facility] webpage. https://www.[email or web address]/pages/[email or web address]-Rjdsv-Cppsfdxxzwp-Ioeqbkrkzh-Fuvwp-[email or web address] stions.htmlTo learn more about the COVID-19 vaccine, we invite you to visit the CDC website for a list of frequently asked questions. https://www.cdc.gov/coronavirus/2019-ncov/vaccines/faq.html [facility] Patient Portal Access Instructions: Stay connected with your healthcare team and access your personal medical information anytime with the [facility] Patient Portal.If you would like a full copy of your medical records, please contact the [facility] Medical Records Department, Sunday through Sunday between 8a.m. and 4:30p.m. Please follow the directions below to access the portal: 1.Access the email account you provided upon registration to the [facility].2.Look for an invitation email from [facility].3.Open the email and access the invitation link: Accept Invitation to [facility]4.Fill in the required king to create your account. Sign into [email or web address] with your username and password that you created in the above steps to stay up to date. You can then view a summary of results, a summary of your visits, and the ability to download your summaries to your computer or send the information securely to a physician. Remember that your healthcare information is confidential, so carefully consider who you will allow to register on the [facility] Patient Portal for access to your information. You can also access the [facility] Patient Portal on the [email or web address] richard. Simply click on Health Records under H-care and then click on the [facility] logo. HOW TO SAFELY DISPOSE OF PRESCRIPTION MEDICATIONS Please use one of the following methods to safely dispose of your unused medications. 1.Use a drug disposal kit: the drug disposal pouch allows you to safely discard your old and unuseddrugs. Ask your nurse to give you one when you are discharged.2.Visit a local take-back location: Many local pharmacies and police departments have programs that collect old and unwanted prescriptiondrugs. Call your local pharmacy or go to http://bit.REALTIME.CO/0D5Iy9x to find one close to you.3.Make use of household items: Use cat litter or old coffee grounds to dispose medications if other options arenot available. Mix your drugs with these household products, seal them in an airtight container andthrow it into the garbage. Call [facility]: [phone] to be sure your drugs can be disposed of in this way. Some medicines may require a different approach.4.Never flush your medications down the toilet. IF YOU HAVE BEEN PRESCRIBED AN OPIOID FOR PAIN If you have been prescribed an opioid (such as hydrocodone, oxycodone or morphine), it is critical to understand the possible side effects and risks of opioid pain medications. Even when taken as directed, opioids can have several side effects including: Tolerance, meaning you might need to take more of a medication for the same pain relief. Nausea, vomiting and/or constipation. Sleepiness, dizziness, dry mouth, confusion, depression or itching. Physical dependence, meaning you have withdrawal symptoms when a medication is stopped, can develop within a few days. KNOW YOUR RESPONSIBILITIES It is important to know exactly how much and how often to take the opioid pain medications you are prescribed. Never take opioids in higher amounts or more often than prescribed. Do not combine opioids with alcohol or other drugs that cause drowsiness, such as benzodiazepines, also known as benzos,including diazepam and alprazolam, muscle relaxants or sleep aids. Never sell or share prescriptionopioids. This is illegal. Store opioids in a secure place and out of reach of others (including children, family, friends and visitors). The last page of this document has been signed and retained as a CHART COPY Signatures Patient Education Materials Hypertension Hemorrhage 7- Home Care Instructions After Delivery 04/2019 (CUSTOM) Medication Leaflets My discharge plan and instructions have been reviewed and explained to me and I,DORY HENDERSON M understand my current condition and have read and understand these discharge instructions. I have received a written copy of the plan/instructions. If I have questions, I am aware that I should contact my doctor. 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: Date/Time: Relationship to Patient: Witness Name/Signature: [facility]Time[id number] Note Date of Service 12/08/2023 OB Discharge Summary OB Discharge Diagnosis: (x) IUP ( ) Preeclampsia ( ) Preeclampsia with Severe Features ( ) Eclampsia ( ) HELLP syndrome ( ) Gestational diabetes ( ) Gestational HTN (x) Chronic HTN ( ) Other: Procedures: (x) Spontaneous vaginal delivery ( ) Vacuum assisted vaginal delivery ( ) Forceps assisted vaginal delivery ( ) Vaginal delivery w/tubal ligation ( ) Episiotomy ( ) Primary Section ( ) Repeat Section ( ) Section w/tubal ligation ( ) D & C ( ) Blood patch ( ) Epidural Anesthesia ( ) Spinal Anesthesia ( ) Section w/hysterectomy Hospital Course: ( ) Uncomplicated ( x ) See progress notes Abnormal Lab/Test Value: ( ) None ( x ) See progress notes RH: ( ) N/A ( ) Rh positive ( ) Rh neg (x) Rhogam given Rubella: (x) Rubella immune ( ) Rubella ubf-muzpek-Rvfnsvz given ( ) Rubella fuz-pjhoqg-Evxbrpf declined Feeding Rosales: (x) Breast feeding (x) Bottle feeding Consultations/referrals: ( ) None ( ) Social Service ( ) Home Health ( ) Genetics ( ) Perinatology ( ) Surgery ( ) Infectious Disease ( ) Nutrition ( ) Psychiatry (x) Anesthesiology ( ) Neurology ( ) Cardiology ( ) Endocrinology ( ) Pulmonology ( ) Other Disposition: Home Condition on Discharge: Stable Follow-up Care: See discharge instructions Other/Comments: None Digitally Signed by NICOLETTE MUNSON MD on 12/08/2023 09:07 AM [id number] Note Date of Service 12/08/2023 OB Discharge Summary OB Discharge Diagnosis: (x) IUP ( ) Preeclampsia ( ) Preeclampsia with Severe Features ( ) Eclampsia ( ) HELLP syndrome ( ) Gestational diabetes ( ) Gestational HTN (x) Chronic HTN ( ) Other: Procedures: (x) Spontaneous vaginal delivery ( ) Vacuum assisted vaginal delivery ( ) Forceps assisted vaginal delivery ( ) Vaginal delivery w/tubal ligation ( ) Episiotomy ( ) Primary Section ( ) Repeat Section ( ) Section w/tubal ligation ( ) D & C ( ) Blood patch ( ) Epidural Anesthesia ( ) Spinal Anesthesia ( ) Section w/hysterectomy Hospital Course: ( ) Uncomplicated ( x ) See progress notes Abnormal Lab/Test Value: ( ) None ( x ) See progress notes RH: ( ) N/A ( ) Rh positive ( ) Rh neg (x) Rhogam given Rubella: (x) Rubella immune ( ) Rubella woo-urgufv-Wiuugar given ( ) Rubella ngt-zorfxq-Seliuxj declined Feeding Rosales: (x) Breast feeding (x) Bottle feeding Consultations/referrals: ( ) None ( ) Social Service ( ) Home Health ( ) Genetics ( ) Perinatology ( ) Surgery ( ) Infectious Disease ( ) Nutrition ( ) Psychiatry (x) Anesthesiology ( ) Neurology ( ) Cardiology ( ) Endocrinology ( ) Pulmonology ( ) Other Disposition: Home Condition on Discharge: Stable Follow-up Care: See discharge instructions Other/Comments: None Digitally Signed by NICOLETTE MUNSON MD on 12/08/2023 09:07 AM [facility] [id number] Note. MICRO - Microbiology PROCEDURE: Urine Culture [O1 *1] SOURCE: Urine BODY SITE: COLLECTED DATE/TIME: 12/06/2023 12:04 EDT RECEIVED DATE/TIME: 12/06/2023 14:38 EDT START DATE/TIME: 12/06/2023 14:38 EDT FREE TEXT SOURCE: FINAL REPORTS Final Report [] Verified Date/Time/Personnel: 12/07/2023 13:44 EDT <10,000 cfu/ml. No Significant growth. Sensitivity not indicated. Order Comments O1: Urine Culture Added by Discern Performing Locations *1: This test was performed at: [facility], [address] [place] [address], [facility] , [facility]10-04-2024 Maternal and medicine Consult note MATERNAL MEDICINE REVIEW Consult [facility] Admitted on: 12/06/2023. Date of MFM Consult- Dr. Jarvis: 12/07/2023 BASELINE ASSESSMENTS She is 38 years old, G 5 P 3, at 39+0 weeks at admission. BERNADETTE: 12/13/2023 Review of Dates: By early imaging. See baseline assessment for admission diagnosis. [] DELIVERY ? Date: 12/06/2023 ? GA at Delivery: 39.0 weeks. GBS positive. ? Comorbidities: (1). Type II diabetic on insulin. (2). AGA fetus and previous vaginal deliveries with history of gestational hypertension. (3). Chronic hypertension and has been on amlodipine 5 mg in this (4) BMI 54.7 at admission ? Summary of Indication for Delivery: Term gestation and diabetic ? Delivery: Normal spontaneous vaginal delivery Reason for MFM transport was the BMI of 50 had been exceeded and Madan Gibson has that as a Ron for delivery in the center DAILY ROUNDS -12/07/2023 ? She is day #1 ? Admission Diagnosis: She was admitted at 39+0 weeks for induction of labor as her BMI is 51. Recent ultrasound revealed a fetus to be AGA and a diabetic control of diabetes type 2 was excellent on NPH twice daily and immediate acting insulin with meals ? Laboratory Assays and Other Tests Complete Blood Count WBC: 16.7 10^3/mcL High (12/07/23 04:45:00) RBC: 3.73 10^6/mcL Low (12/07/23 04:45:00) Hgb: 9.9 G/dL Low (12/07/23 04:45:00) Hct: 29.8 % Low (12/07/23 04:45:00) MCV: 79.7 fL Low (12/07/23 04:45:00) MCH: 26.5 pg Low (12/07/23 04:45:00) MCHC: 33.2 G/dL (12/07/23 04:45:00) RDW: 14.8 % (12/07/23 04:45:00) Platelet: 203 10^3/mcL (12/07/23 04:45:00) MPV: 8.4 fL (12/07/23 04:45:00) ? Maternal Vitals Vitals Signs(Last 24 hrs)__Last Charted Minimum Maximum Temp36.8(DEC 06 11:25)36.8(DEC 06 11:25)36.7(DEC 05 13:10) Heart Rate93(DEC 06 11:25)74(DEC 06 07:48)H 115(DEC 05 21:15) FYR776(DEC 06 11:25)116(DEC 05 17:15)H 166(DEC 05 21:45) DBP66(DEC 06 11:25)60(DEC 05 16:30)C 130(DEC 05 21:30) REVIEW of ASSESSMENTS => care: ? She is breast-feeding.? with her and doing well. => Chronic hypertension: ? Blood pressure is adequately controlled and will continue amlodipine 5 mg => Mild anemia: ? She is on vitamins and supplemental iron => Type II diabetic class III obesity: ? BMI 54 as she is fairly ambulant.? She has been on metformin at 1000 mg daily as well as NPH at HS (dosage reduced to 30u) and short acting insulin. She isnot able to tolerate higher dosages of metformin. => Mental health: She is on BuSpar 10 mg daily and clonazepam and coping well RECOMMENDATIONS ? Routine care ? Will monitor diabetic control closely and adjust medications as needed [] Discharge Planning ? Anticipate discharge on day 2 or day 3 depending on blood pressure control. I have seen and evaluated the patient. I have obtained the fajardo portion of the history and physical examination as stated above. I have discussed the patient with the resident. I have reviewed the resident's documentation and agree with it. The medical decision making was done together with the resident and is also documented in resident note. Patient Care Coordination Discussions: To synchronize multi-disciplinary care, I have personally reviewed patient's progress with the L&D care team. Billing Status: Subsequent Inpatient- AISHWARYA (Medical Complexity in Decision) based - MEDIUM COMPLEXITY Meg Jarvis MD., FACOG Maternal Medicine Digitally Signed by KAREY JARVIS MD on 12/07/2023 12:54 PM [facility] [id number] History and physical note Reason for Visit OB TIOL LMP/EGA/BERNADETTE Gestational Age (EGA) and BERNADETTE * Note: EGA calculated as of 12/06/2023 BERNADETTE: 12/13/2023 EGA*: 39 weeks Type: Final Method Date: 04/23/2023 Method: Ultrasound (04/23/2023) Confirmation: Confirmed Description: -- Comments: BERNADETTE BY CRL Entered by: CORDELL MCCLENDON MD on 07/04/2023 Other BERNADETTE Calculations for this : No additional BERNADETTE calculations have been recorded for this History of Present Illness The patient is a at 39/0wks with an BERNADETTE of 12/12 who presents to [facility] labor and delivery asa transfer from [facility]. The patient arrived this morning at [facility] for an induction at 39/0. Due to her BMI, she was sent to [facility]. As the BMI cutoff at [facility] is 50.0 Today, she feels overall well. She denies headache, dizziness, chest pain, shortness of breath, nausea, vomiting, vaginal bleeding, leakage of fluid. She is not feeling her contractions but she endorses good movement. This is complicated by anxiety chronic hypertension, diabetes mellitus type 2, Rh negative status, GBS positive status, and class III obesity. OB Provider: Madan Rachel ODS-D BSUS: Cephalic OB History History (3,0,1,3) # 1 Baby 1 Outcome Date: 2013 Outcome: Live Outcome or Result: Vaginal Gender: -- Gest Age: 39 weeks Wt: -- Hospital: -- [facility] Labor: -- Child's Name: -- Baby's Father: -- Maternal Complications: Diabetes, gestational, non-insulin dependent; Post depression # 2 Baby 1 Outcome Date: 04/27/2020 Outcome: Live Outcome or Result: Vaginal Gender: Male Gest Age: 39 weeks Wt: 3483 g Hospital: [facility] Labor: -- Child's Name: -- Baby's Father: -- Anesthesia Type: Epidural Maternal Complications: Diabetes, gestational, insulin dependent; growth, enhanced Complications: None Comment: pre-eclampsia # 3 Baby 1 Outcome Date: 04/11/2021 Outcome: Live Outcome or Result: Vaginal Gender: -- Gest Age: 37 weeks 3 days Wt: 3939 g Hospital: -- [facility] Labor: 5 hr 30 min Child's Name: -- Baby's Father: -- Anesthesia Type: Epidural Maternal Complications: Diabetes, gestational, insulin dependent; Excessive bleeding; growth,enhanced; induced hypertension; Relative BMI greater than 30 Complications: None # 4 Baby 1 Outcome Date: 03/2023 Outcome: Outcome or Result: Spontaneous Gender: -- Gest Age: 5 weeks Wt: -- Hospital: -- [facility] Labor: -- Child's Name: -- Baby's Father: -- Review of Systems See above. Obstetric Exam Cervix Dilation: 3 cm (12/06/23 17:04:00) Cervix Effacement: 50 (12/06/23 17:04:00) Station: -3 (12/06/23 10:19:00) Baby A - Membrane Status: A.R.O.M. (12/06/23 17:04:00) Cervix Dilation: 3 cm (12/06/23 17:04:00) Cervix Effacement: 50 (12/06/23 17:04:00) Station: -3 (12/06/23 10:19:00) Baby A - FHR Baseline: 135 bpm (12/06/23 18:00:00) Baby A - FHR Baseline Variability: Moderate variability (12/06/23 18:00:00) Baby A - FHR Accelerations: Present (12/06/23 18:00:00) Baby A - FHR Deceleration: Absent (12/06/23 18:00:00) Uterine Contraction Monitoring Method: External toco (12/06/23 18:00:00) Uterine Contraction Frequency: 2-4 (12/06/23 18:00:00) Physical Exam Vitals & Measurements T: 36.7 C (Oral) HR: 97 (Monitored) RR: 18 BP: 130/63 SpO2: 100% HT: 162.6 cm WT: 131 kg BMI: 49.55 General: in no apparent distress, A&Ox3 Head: atraumatic, normocephalic CV: No JVD Resp: Respirations are a regular rate, depth, and rhythm Abdomen: Soft, gravid, non-tender Extremities: No peripheral edema noted Neuro: Grossly intact Psych: Calm, cooperative, pleasant Labs Blood Type, External: O negative Rubella, External: Immune HIV Antibodies, External: Negative Group B Strep, External: Positive Group B Strep Date Performed: 11/15/23 Hepatitis B, External: Negative RPR, External: Nonreactive Lab Results CBC 12/06/23 10:10 09/26/23 10:37 09/23/23 15:23 Hct 36.0 % 35.2 % L 35.5 % L Hgb 12.0 G/dL 11.9 G/dL L 11.9 G/dL L MCH 26.7 pg L 28.4 pg 28.2 pg MCHC 33.4 G/dL 33.8 G/dL 33.7 G/dL MCV 79.8 fL L 84.0 fL 83.8 fL MPV 8.4 fL 8.2 fL 7.8 fL Platelet 229 10^3/mcL 233 10^3/mcL 229 10^3/mcL RBC 4.51 10^6/mcL 4.19 10^6/mcL L 4.23 10^6/mcL RDW 14.8 % 13.8 % 13.9 % WBC 15.1 10^3/mcL H 13.5 10^3/mcL H 15.1 10^3/mcL H Assessment/Plan The patient is a at 39/0wks with an BERNADETTE of 12/12 who presents to [facility] labor and delivery asa transfer from [facility] This is complicated by anxiety chronic hypertension, diabetes mellitus type 2, Rh negative status, GBS positive status, and class III obesity. TIOL: - Admit to L&D - CEFM - Routine orders - Anesthesia to see; desires epidural - GBS positive for PCN - Hgb on admission 12.0 - BMI on admission 54.74 - CE on admission was 06/01-/ plan to start Pitocin Chronic HTN: - History of pre-eclampsia in prior - She has taken amlodipine 5mg throughout - Pressures while admitted have been normotensive TIIDM: -Per the patient, she had type 2 diabetes prior to becoming . According to the patient, she is not a gestational diabetic. This is an opposition to documents from [facility]. She is currently on metformin 500 mg twice daily and on an insulin regimen of Humulin 60 nightly, insulin lispro 25 units with breakfast and lunch, and lispro 30 units with dinner Her sugars have been 80 90s admitted 38-week growth: 3471g 63%, AC 80%, TITA 10.5 Anxiety: Stable She takes buspirone 10 mg and clonazepam 0.5 mg GBS positive status: For penicillin Rh- status: For RhoGAM if indicated Class III obesity: BMI of 54.74 D/w Dr. Chapman, aware of admission Problem List/Past Medical History Ongoing Body mass index 30+ - obesity Group B streptococcus Hypertension Procedure/Surgical History Dilation and curettage of uterus after delivery: 04/12/21 Colonoscopy: 04/04/11 Medications Inpatient Bolus LR 500 mL, 500 mL, IV Bolus, AsDirected, PRN Brethine, 0.25 mg= 0.25 mL, Subcutaneous, AsDirected, PRN Dextrose 50% IV Push, 12.5 gram(s)= 25 mL, IV Push, AsDirected, PRN influenza virus vaccine, inactivated, 0.5 mL, Intramuscular, Vaccine LR 1,000 mL, 1000 mL, Intravenous LR 500 mL Bolus, 500 mL, IV Bolus, AsDirected, PRN Oxytocin for IV (mL/hr) 20 unit(s) + LR Premix Diluent 1,000 mL Oxytocin for IV (munit/min) 20 unit(s) [2 munit/min] + LR Premix Diluent 1,000 mL Pfizerpen, [id number] unit(s)= 50 mL, IV Piggyback, q4h Home amLODIPine 5 mg oral tablet, 5 mg= 1 tab(s), Oral, qDay, 1 refills busPIRone 10 mg oral tablet, 10 mg= 1 tab(s), BID clonazePAM 0.5 mg oral tablet HumuLIN N KwikPen 100 units/mL subcutaneous PEN, 60 unit(s), Subcutaneous, qHS insulin lispro (Humalog) 100 units/mL injectable solution, 30 unit(s), Subcutaneous Insulin Lispro KwikPen 100 units/mL injectable solution, 25 unit(s) MetFORMIN (Eqv-Glucophage XR) 500 mg oral tablet, EXTENDED RELEASE, 1000 mg= 2 tab(s), BID pantoprazole 40 mg oral enteric coated tablet Multivitamins with Vitamin B Complex, Vitamin C, Minerals and L- Methylfolate oral capsule,1 cap(s), Oral, Daily Vitamin D3, 2000 mg, qDay Allergies Bydureon swelling and redness SEROquel sulfa drugs Social History Denies tobacco use during . Denies alcohol use during . Denies other drug use during . Family History Patient denies history of inherited bleeding or clotting disorders, denies issues with inherited reactions to anesthetic medications. Digitally Signed by RANDA DAILEY DO on 12/06/2023 06:37 PM Digitally Signed by RANDA DAILEY DO on 12/06/2023 06:48 PM [facility] [id number] Evaluation + Plan noteExtracted from: Title:OB Admission H&P Author:ANDREY DAILEY DO Date:12/06/23 The patient is a at 39/ 0wks with an BERNADETTE of 12/12 who presents to [facility] and delivery as a transfer from [facility] This is complicated by anxiety chronic hypertension, diabetes mellitus type 2, Rh negative status, GBS positive status, and class III obesity. TIOL: - Admit to L&D - CEFM - Routine orders - Anesthesia to see; desires epidural - GBS positive for PCN - Hgb on admission 12.0 - BMI on admission 54.74 - CE on admission was 06/01-/3 plan to start Pitocin Chronic HTN: - History of pre-eclampsia in prior - She has taken amlodipine 5mg throughout - Pressures while admitted have been normotensive TIIDM: -Per the patient, she had type 2 diabetes prior to becoming . According to the patient, she is not a gestational diabetic. This is an opposition to documents from [facility]. She is currently on metformin 500 mg twice daily and on an insulin regimen of Humulin 60 nightly, insulin lispro 25 units with breakfast and lunch, and lispro 30 units with dinner Her sugars have been 80 90s admitted 38-week growth: 3471g 63%, AC 80%, TITA 10.5 Anxiety: Stable She takes buspirone 10 mg and clonazepam 0.5 mg GBS positive status: For penicillin Rh- status: For RhoGAM if indicated Class III obesity: BMI of 54.74 D/w Dr. Chapman, aware of admission Future Scheduled Tests Laboratory* hCG, quantitative(AO) 03/11/23 * hCG, quantitative(AO) 03/17/23 * hCG, quantitative(AO) 03/20/23 * hCG, quantitative(AO) 03/08/23 * hCG, quantitative(AO) 04/18/23 * hCG, quantitative(AO) 04/21/23 * hCG, quantitative(AO) 04/24/23 Radiology* US OB W/Biophysical Profile 10/25/23 * US OB W/Biophysical Profile 11/08/23 [facility] 10-03-2024 Anesthesiology Consult note Patient: DORY HENDERSON Age: 38 years Sex: Female : 1985 Associated Diagnoses: None Author: MICK LAYNE APRN-SEYMOUR Preoperative Information Time of last food or liquid consumption: 12/06/2023 06:00:00 Anesthesia history Patient's history: negative. Family's history: negative. Review of Systems Ear/Nose/Mouth/Throat: Negative. Respiratory: Negative. Cardiovascular: cHTN. Gastrointestinal: Heartburn, Reflux. Genitourinary: Negative. Endocrine: DM II, obesity BMI 50. Musculoskeletal: Negative. Integumentary: Negative. Neurologic: Anxiety/depression. Reproductive: Para Scoring , Week's Gestation 39. Tubal: No. Reason for Induction: Term. Health Status Allergies: Allergic Reactions (Selected) Severity Not Documented Bydureon- Swelling and redness. SEROquel- No reactions were documented. Sulfa drugs- No reactions were documented., Allergies (3) ActiveSeverityReaction SEROquelNone Documented sulfa drugsNone Documented Bydureonswelling and redness Current medications: (Selected) Inpatient Medications Ordered Bolus LR 500 mL: 500 mL, IV Bolus, AsDirected, PRN: Other (see order comments) Brethine: 0.25 mg, 0.25 mL, Subcutaneous, AsDirected, PRN: Control symptoms Dextrose 50% IV Push: 12.5 gram(s), 25 mL, IV Push, AsDirected, PRN: Hypoglycemia LR 1,000 mL: 125 mL/hr, Intravenous LR 500 mL Bolus: 500 mL, IV Bolus, AsDirected, PRN: Other (see order comments) Oxytocin for IV (mL/hr) 20 unit(s) + LR Premix Diluent 1,000 mL: after delivery of placenta, see order comments, Intravenous Oxytocin for IV (munit/min) 20 unit(s) [2 munit/min] + LR Premix Diluent 1,000 mL: 6 mL/hr, Intravenous PCN G 2,000,000 units/50mL IVPB: 2,000,000 unit(s), 50 mL, 100 mL/hr, IV Piggyback, Once PCN G 3,000,000 units/50mL IVPB: 3,000,000 unit(s), 50 mL, 100 mL/hr, IV Piggyback, Once Pfizerpen: 3,000,000 unit(s), 50 mL, 100 mL/hr, IV Piggyback, q4h influenza virus vaccine, inactivated: 0.5 mL, Intramuscular, Vaccine Prescriptions Prescribed amLODIPine 5 mg oral tablet: 5 mg, 1 tab(s), Oral, qDay, for 60 day(s), 60 tab(s), 1 Refill(s) Documented Medications Documented HumuLIN N KwikPen 100 units/mL subcutaneous PEN: 10 unit(s), Subcutaneous, BID, 5 EA, 0 Refill(s) Insulin Lispro KwikPen 100 units/mL injectable solution: 4 unit(s), 0 Refill(s) MetFORMIN (Eqv-Glucophage XR) 500 mg oral tablet, EXTENDED RELEASE: 1,000 mg, 2 tab(s), BID, 0 Refill(s) Multivitamins with Vitamin B Complex, Vitamin C, Minerals and L- Methylfolate oral capsule...: 1 cap(s), Oral, Daily, 0 Refill(s) Vitamin D3: 2,000 mg, qDay, 0 Refill(s) busPIRone 10 mg oral tablet: 10 mg, 1 tab(s), BID, 0 Refill(s) clonazePAM 0.5 mg oral tablet: take 1 tablet by mouth daily if needed for anxiety pantoprazole 40 mg oral enteric coated tablet: take 1 tablet by mouth once daily, Medications (11) Active Scheduled: (4) influenza virus vaccine, inactivated pf quad UD syringe (Fluarix) 0.5 mL, Intramuscular, Vaccine penicillin G potassium 3,000,000 unit(s) 50 mL, IV Piggyback, q4h penicillin G potassium 2,000,000 unit(s) 50 mL, IV Piggyback, Once penicillin G potassium 3,000,000 unit(s) 50 mL, IV Piggyback, Once Continuous: (3) Lactated Ringers 1,000 mL 1,000 mL, Intravenous, 125 mL/hr Oxytocin 20 units in Lactated Ringers 1000 mL 20 unit(s) + LR Premix Diluent 1,000 mL 1,000 mL, Intravenous Oxytocin 20 units in Lactated Ringers 1000 mL 20 unit(s) [2 munit/min] + LR Premix Diluent 1,000 mL1,000 mL, Intravenous, 6 mL/hr PRN: (4) dextrose 50% Solution Disp syringe 50 mL 12.5 gram(s) 25 mL, IV Push, AsDirected Lactated Ringers Injection 500 mL * Bolus * 500 mL, IV Bolus, AsDirected Lactated Ringers Injection 500 mL * Bolus * 500 mL, IV Bolus, AsDirected terbutaline 1 mg/ml vial 0.25 mg 0.25 mL, Subcutaneous, AsDirected Problem list: Medical Body mass index 30+ - obesity / SNOMED CT 883141011 / Confirmed Carpal tunnel syndrome, right / SNOMED CT 28781506 / Confirmed Diabetes mellitus type 1 / SNOMED CT 264112093 / Confirmed Gestational diabetes requiring insulin / SNOMED CT 5873888201 / Confirmed Group B streptococcus / SNOMED CT 025286834 / Confirmed Hypertension / SNOMED CT 0068676800 / Confirmed Encounter for supervision of normal in multigravida in third trimester / SNOMED CT 866902504 / Confirmed / SNOMED CT 401719224 / Confirmed, Active Problems (9) Body mass index 30+ - obesity Carpal tunnel syndrome, right Diabetes Diabetes mellitus type 1 Encounter for supervision of normal in multigravida in third trimester Gestational diabetes requiring insulin Group B streptococcus Hypertension Histories Past Medical History: Resolved ([id number]): Onset on 01/29/2023 at 37 years. Resolved in the month of 03/2023 at 38 years. ([id number]): Onset on 07/23/2020 at 35 years. Resolved on 04/11/2021 at 36 years. Comments: 07/29/2020 EDT 8:51 EDT - SYSTEM System added from documentation. Status documented as Yes on Admission 04/28/2021 EST 9:57 EST - Eve Buchanan LPN postprtum visit 05/26/2021 EDT 9:43 EDT - Eve Buchanan LPN 6wk PP visit ([id number]): Onset on 07/29/2019 at 34 years. Resolved on 04/27/2020 at 35 years. Comments: 05/20/2020 EDT 10:32 EDT - Yanelis Kirkpatrick RNpaper hanger ([id number]): Onset on 06/05/2012 at 27 years. Resolved in 2013 at 28 years. Poor appetite ([id number]): Resolved. At risk for ineffective ([id number]): Resolved. Diabetes mellitus type 1 ([id number]): Resolved. Family History: Cancer Father () Hypertension Mother Father () Arthritis Mother Heart attack Father () Grandparent () Depression Mother Brother Procedure history: Dilation and curettage of uterus after delivery ([id number]) on 04/12/2021 at 36 Years. Colonoscopy ([id number]) on 04/04/2011 at 26 Years. Social History: Social & Psychosocial Habits Alcohol 12/06/2023 Use: Current Comment: on occassion - 07/29/2020 08:48 - Eve Buchanan ALEXANDRA 12/06/2023 Use: Never Substance Abuse 12/06/2023 Use: Never 12/06/2023 Use: Never Tobacco 12/06/2023 Tobacco Use: Never (less than 100 in l 12/06/2023 Tobacco Use: Never (less than 100 in l 12/06/2023 Tobacco Use: Never (less than 100 in l Nutrition/Health 12/06/2023 Caffeine intake amount: coffee/pop/tea- 1-2cups/day Physical Examination Vital Signs 12/06/2023 9:55 EDT Temperature Oral 36.7 DegC Heart Rate Monitored 102 bpm HI Respiratory Rate 18 br/min Systolic Blood Pressure Non-Invasive 147 mmHg HI Diastolic Blood Pressure Non-Invasive 82 mmHg 12/06/2023 8:17 EDT Heart Rate Monitored 102 bpm HI Respiratory Rate 18 br/min Systolic Blood Pressure Non-Invasive 152 mmHg HI Diastolic Blood Pressure Non-Invasive 105 mmHg >HHI 12/06/2023 8:02 EDT Heart Rate Monitored 101 bpm HI Respiratory Rate 18 br/min Systolic Blood Pressure Non-Invasive 138 mmHg Diastolic Blood Pressure Non-Invasive 86 mmHg 12/06/2023 7:33 EDT Temperature Temporal Artery 36.8 DegC Heart Rate Monitored 90 bpm Respiratory Rate 18 br/min Systolic Blood Pressure Non-Invasive 156 mmHg HI Diastolic Blood Pressure Non-Invasive 96 mmHg HI Vital Signs (last 24 hrs) Last Charted Temp Oral36.7 DegC (DEC 05 09:55) Heart Rate MonitoredH 102 bpm (DEC 05 09:55) SBPH 147 mmHg (DEC 05 09:55) DBP82 mmHg (DEC 05 09:55) BMI49.55 (DEC 05 10:13) Measurements from flowsheet : Measurements 12/06/2023 10:13 EDT Height 162.6 cm Admission Weight 131 kg [place] Body Weight 54.74 kg BSA Admission 2.29 Body Mass Index 49.55 kg/m2 Pain assessment: Pain Assessment 12/06/2023 9:55 EDT Primary Pain Intensity 0 Pain Scale Type 0-10 Pain scale 12/06/2023 7:33 EDT Primary Pain Intensity 0 Pain Scale Type 0-10 Pain scale . General: Alert and oriented. Airway: Normal temporomandibular joint mobility. Mallampati classification: III (soft palate, base of uvula visible). Head: Normocephalic. Dentition Evaluation: Intact, Own teeth, Tongue piercing, lip piercing x2. Neck: Supple. Respiratory: Respirations are non-labored. Gastrointestinal: Gravid. Musculoskeletal Normal range of motion. Normal strength. Integumentary: Intact, Warm, Dry, [place]. Neurologic: Alert, Oriented, Normal sensory, Normal motor function. Review / Management Results review: Labs (Last four charted values) WBC H 15.1(DEC 05) Hgb 12.0(DEC 05) Hct 36.0(DEC 05) Plt 229(DEC 05) , Lab results 12/06/2023 10:51 EDT Blood Glucose, Capillary 83 mg/dL 12/06/2023 10:40 EDT Monitoring Annotations up to the bathroom 12/06/2023 10:31 EDT Edu-Equipment/Devices Verbalizes/Nonverbally indicates understanding Edu-Pain Management Verbalizes/Nonverbally indicates understanding Ed-Plan of Care Verbalizes/Nonverbally indicates understanding Ed-Safety, Fall Verbalizes/Nonverbally indicates understanding Individuals Taught Patient Learning Readiness Willing to learn Barriers to Learning None evident Teaching Method Demonstration, Electronic, Explanation, Printed materials, Teach-back Preferred Spoken Language [place]an Preferred Written Language [place] Family/Caregiver Prefer Spoken Language [place] Family/Caregiver Prefer Written Language [place] General Infection Prevention Strategies Hand hygiene, Remind visitor/caregiver to wash hands, Remind patient/visitor to mask when w/Healthcare Provider Visitors Isolation Precautions Education Hand hygiene, Use of personal protective equipment, Removal of protective equipment, Restricted visitation Catheter Associated UTI Prevention CAUTI FAQ provided, Hand hygiene, Catheter care, Catheter secureeducation, Avoid twisting/kinking catheter CLABSI Prevention Hand hygiene Infection Prevention Teaching Evaluation Needs further teaching Ed- Monitoring Verbalizes/Nonverbally indicates understanding Ed-Contractions Verbalizes/Nonverbally indicates understanding Ed-Fever During Verbalizes/Nonverbally indicates understanding Ed-Vaginal Bleeding Verbalizes/Nonverbally indicates understanding Ed-Medication Side Effects Done Ed-Coping skills Verbalizes/Nonverbally indicates understanding Ed-Complications of Labor/Delivery Verbalizes/Nonverbally indicates understanding Ed-LD Activity Verbalizes/Nonverbally indicates understanding Ed-LD Nutrition/Fluids Verbalizes/Nonverbally indicates understanding Ed-LD Comfort Measures Verbalizes/Nonverbally indicates understanding Ed-Anesthesia Plans Verbalizes/Nonverbally indicates understanding Ed-Induction Process Verbalizes/Nonverbally indicates understanding Ed-Ruptured Membranes Verbalizes/Nonverbally indicates understanding Ed-LD Safety Verbalizes/Nonverbally indicates understanding Ed-Surgery Verbalizes/Nonverbally indicates understanding Ed-LD Treatments/Procedures/Tests Verbalizes/Nonverbally indicates understanding Ed-Infection Signs/Symptoms Verbalizes/Nonverbally indicates understanding Edu-Med Preadministration Procedures Verbalizes/Nonverbally indicates understanding Ed-Medication Dosage, Route, Scheduling Verbalizes/Nonverbally indicates understanding Edu-Med Generic/Brand Name,Purpose,Action Done Edu- Hemorrhage Verbalizes understanding 12/06/2023 10:22 EDT Lactated Ringers Injection Begin Bag 1,000 mL mL 12/06/2023 10:19 EDT Cervix Dilation 3 cm Cervix Effacement 30 Station -3 12/06/2023 10:17 EDT OBHx Para 4 OBHx Para Full Term 4 12/06/2023 10:13 EDT Blood Type, External O negative Rubella, External Immune HIV Antibodies, External Negative Group B Strep, External Positive Group B Strep Date Performed 11/15/2023 Hepatitis B, External Negative Hepatitis B Date Performed 06/14/2023 RPR, External Nonreactive Designated Person #1 We May Share [facility] Ricardo [phone] Designated Person #1 Relationship Spouse Privacy Restrictions Requested None Height 162.6 cm Admission Weight 131 kg [place] Body Weight 54.74 kg BSA Admission 2.29 Body Mass Index 49.55 kg/m2 Expected Outcome Live Patient Type Inpatient Thrombosis Risk Factors (1) Obesity (greater than 20% over ideal body weight or BMI, (1) or post- less than 1 month Thrombosis Risk Factor Add'l Assessment NA Thrombosis Risk Score 2 Status Yes Risk Factors, Antepartum Current Preg Diabetes, gestational, insulin dependent, Diabetes, insulin dependent Movement Present Vaginal bleeding No PPH Risk High risk for hemorrhage PPH High Risk Factors History of hemorrhage Feeding Formula Anesthesia/Pain Medication During Labor Epidural/Spinal Circumcision Other: girl Baby For Adoption No Surrogate No Tubal Sterilization Planned No Discharge Physician DANIELLE Bateman Written Plan No WIC Participant Yes Safe Sleep Environment for Baby Yes Safe Sleep Environment Outside Home Yes Maternal Transport No Thoughts of Harming Others - History No Thoughts of Suicide - History No Coping Effective Emotional Abuse History Denies Physical Abuse History Denies Sexual Abuse Denies Hospital Clergy to Visit Patient Verbalizes No Spiritual Needs Financial Concerns Re: Hospital/Disch No Living Situation Home independently Current Home Treatments None Professional Skilled Services None Special Services and Community Resources None Advanced Directives No - refuses information Infectious Disease Symptoms Patient states no symptoms Infectious Disease Recent Exposure No Alcohol and Drug Use No Employee of Institutional Living No Health Care Employee No History of Exposure to TB No History of Positive Chest X-Ray for TB No History of Positive TB Skin Test No Homeless No Known Immunosuppression No Recent Immigrant No Resident of Institutional Living No Bloody Sputum No Fatigue No Fever No Loss of Appetite No Night Sweats No Persistent Cough > 3 Weeks No Weight Loss No Preferred Spoken Language Com[place]an Preferred Written Language [place]an Teaching Evaluation Verbalizes/Nonverbally indicates understanding Safety Brochure Information Reviewed Yes [facility] Video Viewed Yes Chief Complaint IOL Accompanied by Significant other Information Given by Patient Patient's Current Physicians Emergency Contact Number richard [phone] Reason For Visit OB Induction History of Malignant Hyperthermia No Mode of Transfer Private vehicle Discharge To, Anticipated Home independently Other Anticipated Needs After Discharge No Anticoagulants Taken In Past 6 Wks. No Prev Test Positive/Diagnosis w/COVID-19 No Current Quarantine/Isolated any Illness No Any Contact with Sick Animals/Birds No Traveled Anywhere in Last 30 Days No Influenza Vaccine Need No prior receipt of vaccine Influenza Risk Factors age 6 months and older Influenza Vaccine Contraindications None Forego Influenza Vaccination None No Anesthesia/Transfusions None Admission Note-Nursing Patient History OB 12/06/2023 10:12 EDT OBHx 5 OBHx Abortions 1 OBHx Spontaneous Abortions 1 12/06/2023 10:10 EDT WBC 15.1 10^3/mcL HI RBC 4.51 10^6/mcL Hgb 12.0 G/dL Hct 36.0 % MCV 79.8 fL LOW MCH 26.7 pg LOW MCHC 33.4 G/dL RDW 14.8 % Platelet 229 10^3/mcL MPV 8.4 fL Neutrophil % 81.1 % HI Lymphocyte % 12.5 % LOW Monocyte % 4.9 % Eosinophil % 0.9 % Basophil % 0.6 % Neutrophil, Absolute 12.3 10^3/mcL HI Lymphocyte, Absolute 1.9 10^3/mcL Monocyte, Absolute 0.7 10^3/mcL Eosinophil, Absolute 0.1 10^3/mcL Basophil, Absolute 0.1 10^3/mcL ABO/Rh Interp O NEG ABSC Interp (Gel) Negative ABSC 12/06/2023 10:00 EDT Urine Voided 75 mL 12/06/2023 9:55 EDT Temperature Oral 36.7 DegC Heart Rate Monitored 102 bpm HI Respiratory Rate 18 br/min Systolic Blood Pressure Non-Invasive 147 mmHg HI Diastolic Blood Pressure Non-Invasive 82 mmHg Primary Pain Intensity 0 Pain Scale Type 0-10 Pain scale Murmur Auscultated No Dorsalis Pedis Pulse, Left 2+ Normal Dorsalis Pedis Pulse, Right 2+ Normal Respirations Unlabored Respiratory Pattern Regular All Lobes Breath Sounds Clear, Equal Cough None Oxygen Saturation 100 % Abdomen Description Non-distended, Symmetric, Soft Swallowing Disorder None Urinary Elimination Voiding, no difficulties Skin Temperature Warm Skin Description [place], Normal for ethnicity Skin Integrity Intact Sensory Perception Kenn No impairment Moisture Kenn Rarely moist Activity Eknn Walks frequently Mobility Kenn No limitations Nutrition Kenn Adequate Friction and Shear Kenn No apparent problem Kenn Score 22 Hospital Acquired Pressure Injury Risk None/minimal risk (score 19-23) Forearm Left 18 gauge Peripheral IV Activity: Insert new site Peripheral IV Dressing Condition: Clean, Dry, Intact Peripheral IV Line Status/Patency: Flushes easily, Continuous infusion Peripheral IV Site Condition: No complications Peripheral IV Equipment: Manual Peripheral IV Number of Attempts: 2 Neurological Symptoms Patient denies Strength All Extremities Strong Tone All Extremities Normal Hahn Screen Daily History of Fall in Last 3 Months Hahn No Presence of Secondary Diagnosis Hahn No Use of Ambulatory Aid Hahn None, bedrest, wheelchair, nurse IV/PRN Adapter Fall Risk Hahn Yes Gait Weak or Impaired Fall Risk Hahn Normal, bedrest, immobile Mental Status Fall Risk Hahn Oriented to own ability Hahn Fall Risk Score 20 Violence Risk Confused No Violence Risk Irritable No Violence Risk Boisterous No Violence Risk Verbal Threats No Violence Risk Physical Threats No Violence Risk Attacking Objects No Violence Risk Predictor Score 0 Violence Risk Intervention None Violence Risk Current Interventions None Positioning Repositions self Activity Status ADL Resting, Up ad carmen Standard Safety Safety level maintained, Non-Slip footwear Appetite Good 12/06/2023 9:20 EDT Pharmacy Scanned Orders Pharmacy Scanned Orders 12/06/2023 8:48 EDT Monitoring Annotations discharged 12/06/2023 8:31 EDT [facility] Inpatient Summary [facility] Inpatient Discharge Instructions 12/06/2023 8:30 EDT Discharged to Other: To [facility] 12/06/2023 8:25 EDT OB Screen /Para Para > 3 (2) OB Screen Gestational Age > 37 weeks (0) OB Screen Cervical Dilatation Cervical exam not done OB Screen Cervical Effacement Cervical exam not done OB Screen Station Cervical exam not done OB Screen Cervical Position Cervical exam not done OB Screen Presentation Vertex Presentation (0) OB Screen Contraction Pattern None OB Screen Contraction Strength Mild to Palpation (0) OB Screen Membranes Intact (0) OB Screen FHR Variability Moderate (0) OB Screen Duration of Fastest Labor > 3 hours (0) OB Screen Travel Time 31-60 minutes (1) OB Screen Previous Uterine Scar None (0) OB Screen Pain None (0) OB Screen Pain Unrelated to Contractions None OB Screen Total Score 3 Presence of decelerations No Vaginal bleeding No Prolapsed Cord or Part No Persistent Maternal BP>140/90 Yes Persistent Headache No Visual Disturbances No Epigastric Pain No Proteinuria > 2+ No with dilation of 5cm or > No Non-reassuring FHR pattern No FHR Baseline < 110 or > 160 bpm No Decreased Movement/NR NST No No Care in Active Labor No Purulent Vaginal Discharge No Maternal Temp of > 38 degrees Celsius No Membranes Intact Yes Trauma OB Screen No OB Visit Outcome Discharged Method of Certification Telephone/Read Back Date/Time of Certification 12/06/2023 8:29 Certifying Provider NIKITA LOCO, GEORGE Kumar OB Certification Patient not in active labor, Other: transporting by private vehicle to [facility] for Induction Chief Complaint Here for induction, BMI 50.5 [place] [facility] Screen Note OB Screening [facility] [facility] Screening Form [place] [facility] Screening Form [place] 12/06/2023 8:19 EDT [facility] Progress Note 12/06/2023 8:17 EDT Heart Rate Monitored 102 bpm HI Respiratory Rate 18 br/min Systolic Blood Pressure Non-Invasive 152 mmHg HI Diastolic Blood Pressure Non-Invasive 105 mmHg >HHI 12/06/2023 8:02 EDT Heart Rate Monitored 101 bpm HI Respiratory Rate 18 br/min Systolic Blood Pressure Non-Invasive 138 mmHg Diastolic Blood Pressure Non-Invasive 86 mmHg 12/06/2023 8:00 EDT Uterine Contraction Monitoring Method External toco Uterine Activity Not sadia Baby A FHR Baseline: 150 bpm FHR Baseline Variability: Moderate variability FHR Accelerations: Present FHR Deceleration: Absent 12/06/2023 7:48 EDT Monitoring Annotations in room, discussed with patient transfer to [facility], BP reviewed 12/06/2023 7:33 EDT Temperature Temporal Artery 36.8 DegC Heart Rate Monitored 90 bpm Respiratory Rate 18 br/min Systolic Blood Pressure Non-Invasive 156 mmHg HI Diastolic Blood Pressure Non-Invasive 96 mmHg HI Primary Pain Intensity 0 Pain Scale Type 0-10 Pain scale Baby A FHR Baseline: 155 bpm 12/06/2023 7:02 EDT Progress Note-Nurse BMI . Assessment and Plan [place] [employer] Anesthesiologists (ASA) physical status classification: Class III. Anesthetic Preoperative Plan Premedication: None. Anesthetic technique: Epidural. Regional: Epidural. Postoperative pain management: Per surgeon. Risks discussed: nausea, vomiting, headache, sore throat, dental injury, hypotension, allergic reaction, serious complications. Informed consent: signed by patient. Notes: Patient presents for term IOL, desires epidural. Consent obtained for epidural, spinal and GETA if needed. All questions answered, patient agreeable to plan. PS III- , obesity BMI 50,DM II, cHTN, GERD. Digitally Signed by MICK LAYNE on 12/06/2023 11:11 AM Digitally Signed by DANO PAGE MD on 12/06/2023 11:10 PM [id number] Discharge instructions Patient Education 12/06/2023 08:30:38 7 - Labor and Delivery Outpatient Instructions (CUSTOM) [facility] LABOR AND DELIVERY OUTPATIENT HOME-GOING INSTRUCTIONS _X_ [...] crackers, bananas, Jell-O, cooked carrots, applesauce. ___ [place] diet. Avoid caffeine, chocolate, alcohol, spiced/greasy foods. [...] and relax. Count the movements. You need tohave 10 movements in 2 hours. ___ If [...] the nearest Emergency Room for assistance. Form [id number] D: 02/10 Document Released: 02/19/2006 Document Revised: 02/08/2012 Document Reviewed: 02/19/2006 [facility] Patient Information 2012 [employer]. Follow Up Care 12/06/2023 06:16:48 With:GEORGE DE OLIVEIRA Address: [address] [place] [address] [place] [address]- [phone] Business (1) When: Unknown [facility] 10-03-2024 Note Obstetrics progress note: Dory is a 38-year-old 5 para 3 who presented to labor and delivery for scheduled induction of labor at 39 weeks estimated gestational age. Induction was scheduled secondary to insulin requiring gestational diabetes which had been well-controlled. Also had a history of eclampsia in previous pregnancies but had normal blood pressures throughout. Growth scans and biophysical profiles have b een reassuring with last estimated weight of 3.4 kg. This has also been complicatedby obesity she has been hovering in the upper 40s to near 50 for a BMI over the last month or so ofher . She presents to labor and delivery today with a BMI of 50.58. Unfortunately our labor and delivery unit will not accept patients with a BMI over 50 due to anesthesia not covering patients over the BMI of 50. She is visibly upset and has had a couple of elevated blood pressures since she has been here but blood pressures in the normal range now. NST performed here is reassuring category 1. She is not sadia. Side ultrasound shows the baby in vertex presentation. Given circumstances regarding her BMI transfer her to [facility] under the care of Dr. Jarvis. Anticipate an uneventful induction of labor as she is never had issues with induction. She is GBS positive and will require antibiotic prophylaxis while in labor. Given that she is not in labor I feel it would be safe for her to transport herself by private vehicle. Digitally Signed by GEORGE DE OLIVEIRA MD on 12/06/2023 08:24 AM [facility]10-03-2024 Nurse Progress note Patient arrived to the unit at 0600 for induction of labor. Nurse took patient to ED to obtain accurate ht and wt on admission. Ht 161cm and wt is 289.1 with a BMI of 50.58. Note was left on chart tonotify anesthesia if BMI is greater then 50. Janet López was print production associate for anesthesia and was notified at 0630 and stated patient is over BMI requirement and is unable to be delivered at [facility] OB unit. Dr Lynn is print production associate for women's health and was notified of anesthesia decision at 0650. Patient is resting in room and was explained by nursing staff that we are discussing her plan of care and will let her know as soon as we can the plan for her induction. Dr Lynn ordered an NST and BP for patient since she is here and to schedule an apt with Dr De Oliveira who has been seeing this patient in the office. Dr Lynn also asked to notify Dr De Oliveira of decisions. Dr De Oliveira was called at 0655 by nurse and told BMI and anesthesias decision to not deliver at [facility]. Dr De Oliveira stated he was okay with NST and BP and will be up around 0730 to talk to the patient. Digitally Signed by RADHA Charles on 12/06/2023 07:14 AM [facility]09-02-2024 Hospital Discharge instructions Patient Education 11/05/2023 02:50:30 7 - Labor and Delivery Outpatient Instructions (CUSTOM) [facility] LABOR AND DELIVERY OUTPATIENT HOME-GOING INSTRUCTIONS _X_ You are to follow up with your physician as scheduled ACTIVITY ___ Bedrest _x__Activity as tolerated ___ No work/school for ___ days. ___Other PRESCRIPTION GIVEN ___Yes NAUSEA/VOMITING ___ Take small, frequent amounts of clear liquids. Avoid fruit juices and milk. ___ Increase fluid intake to a minimum of 8 ounces of fluid every hour while awake. ___ Soft diet. Rice, crackers, bananas, Jell-O, cooked carrots, applesauce. ___ [place] diet. Avoid caffeine, chocolate, alcohol, spiced/greasy foods. [...] back. SIGNS OF PRE-ECLAMPSIA _x__ Severe heartburn. __x_ Persistent headache not relieved by Tylenol. _x__ Increased in swelling of face, hands and [...] to have 10 movements in 2 hours. __x_ If you do not feel the 10 movements, call your physician. OTHER __x_ After an exam you may experience some spotting or discharge. As long as it is not bright red and heavy like a period or continues to leak as if your water broke, it is to be expected. ___ LABOR Call your physician if you experience: _x__ Painful uterine contractions every 5 minutes for 2 hours. __x_A gush or continuous trickle of watery discharge. COME TO THE HOSPITAL AND CALL PHYSICIAN IF: _x__ Your abdomen feels continually firm. __x_ *Bleeding is bright red and enough to saturate a pad in one hour or less. *Call 911 or go to the nearest Emergency Room for assistance. Form [id number] D: 02/10 Document Released: 02/19/2006 Document Revised: 02/08/2012 Document Reviewed: 02/19/2006 [facility] Patient Information 2012 [employer]. [facility] 07-21-2024 Hospital Discharge instructions Patient Education 09/23/2023 17:21:15 High Blood Pressure, Established, Out of Control Uncontrolled High Blood Pressure (Established) Your blood pressure was unusually high today. This can occur if you ve missed doses of your blood pressure medicine. Or it can happen if you are taking other medicines. These include some asthma inhalers, decongestants, diet pills, and street drugs like cocaine and amphetamine. Other causes include: Weight gain More salt in your diet Smoking Caffeine Your blood pressure can also rise if you are emotionally upset or in intense pain. It may go back to normal after a period of rest. Blood pressure measurements are given as 2 numbers. Systolic blood pressure is the upper number. This is the pressure when the heart contracts. Diastolic blood pressure is the lower number. This is the pressure when the heart relaxes between beats. You will see your blood pressure readings written together. For example, a person with a systolic pressure of 118 and a diastolic pressure of 78 will have 118/78 written in the medical record. To be high blood pressure, the numbers must be higher when tested over a period of time. Blood pressure is categorized as normal, elevated, or stage 1 or stage 2 high blood pressure: Normal blood pressure is systolic of less than 120 and diastolic of less than 80 (120/80) Elevated blood pressure is systolic of 120 to 129 and diastolic less than 80 Stage 1 high blood pressure is systolic is 130 to 139 or diastolic between 80 to 89 Stage 2 high blood pressure is when systolic is 140 or higher or the diastolic is 90 or higher Uncontrolled high blood pressure can cause serious health problems. It raises your risk for heart attack, stroke, and heart failure. In general, if you have high blood pressure, keeping your blood pressure below 130/80 mmHg may help prevent these problems. Your healthcare provider may prescribe medicine to help control blood pressure if lifestyle changes are not enough. Home care It s important to take steps to lower your blood pressure. If you are taking blood pressure medicine, the guidelines below may help you need less or no medicines in the future. Start a weight-loss program if you are overweight. Cut back on the amount of salt in your diet: oAvoid high-salt foods like olives, pickles, smoked meats, and salted potato chips. oDon t add salt to your food at the table. oUse only small amounts of salt when cooking. Start an exercise program. Talk with your healthcare provider about what exercise program is best for you. It doesn t have to be difficult. Even brisk walking for 20 minutes 3 times a week is a good form of exercise. Avoid medicines that stimulates the heart. This includes many tgdg-lbu-uwrqqsy cold and sinus decongestant pills and sprays, as well as diet pills. Check the warnings about high blood pressure on thelabel. Before purchasing any gjsf-igy-vnwjryw medicines or supplements, always ask the pharmacist about the product's potential interaction with your high blood pressure and your medicines. Stimulants such as amphetamine or cocaine could be lethal for someone with high blood pressure. Never take these. Limit how much caffeine you drink. Or switch to noncaffeinated beverages. Stop smoking. If you are a long-time smoker, this can be hard. Enroll in a stop- smoking program to make it more likely that you will succeed. Talk with your provider about ways to quit. Learn how to handle stress better. This is an important part of any program to lower blood pressure. Learn ways to relax. These include meditation, yoga, and biofeedback. If medicines were prescribed, take them exactly as directed. Missing doses may cause your blood pressure to get out of control. If you miss a dose or doses of your medicines, check with your healthcare provider or pharmacist about what to do. Consider buying an automatic blood pressure machine. Your provider may recommend a certain type. You can get one of these at most pharmacies. Measure your blood pressure twice a day, in the morning, and in the late afternoon. Keep a written record of your home blood pressure readings and take the record to your medical appointments. Here are some additional guidelines on home blood pressure monitoring from the [place] [employer]. Don't smoke or drink coffee for 30 minutes Go to the bathroom before the test. Relax for 5 minutes before taking the measurement. Sit correctly. Be sure your back is supported. Don't sit on a couch or soft chair. Uncross your feet and place them flat on the floor. Place your arm on a solid, flat surface like a table with the upper arm at heart level. Make certain the middle of the cuff is directly above the bend of the elbow.Check the monitor's instruction manual for an illustration. Take multiple readings. When you measure, take 2 or 3 readings one minute apart and record all of the results. Take your blood pressure at the same time every day, or as your healthcare provider recommends. Record the date, time, and blood pressure reading. Take the record with you to your next appointment. If your blood pressure monitor has a built-in memory, simply take the monitor with you to your next appointment. Call your provider if you have several high readings. Don't be frightened by a single high reading,but if you get several high readings, check in with your healthcare provider. Note: When blood pressure reaches a systolic (top number) of 180 or higher or a diastolic (bottom number) of 110 or higher, emergency medical treatment is required. Call your healthcare provider immediately. Follow-up care Regular visits to your own healthcare provider for blood pressure and medicine checks are an important part of your care. Make a follow-up appointment as directed. Bring the record of your home bloodpressure readings to the appointment. When to seek medical advice Call your healthcare provider right away if any of these occur: Blood pressure reaches a systolic (top number) of 180 or higher or diastolic (bottom number) of 110or higher, emergency medical treatment is required. Chest, arm, shoulder, neck, or upper back pain Shortness of breath Severe headache Throbbing or rushing sound in the ears Nosebleed Extreme drowsiness, confusion, or fainting Dizziness or dizziness with spinning sensation (vertigo) Weakness in an arm or leg or on one side of the face Trouble speaking or seeing [employer]. [address] [place] [id number]. All rights reserved. This information is not intended as a substitute for professional medical care. Always follow yourhealthcare professional's instructions. 09/23/2023 17:21:13 Chest Pain, Uncertain Cause Uncertain Causes of Chest Pain Chest pain can happen for a number of reasons. Sometimes the cause can't be determined. If your condition does not seem serious, and your pain does not appear to be coming from your heart, your healthcare provider may recommend watching it closely. Sometimes the signs of a serious problem take moretime to appear. Many problems not related to your heart can cause chest pain. These include: Musculoskeletal. Costochondritis is an inflammation of the tissues around the ribs that can occur from trauma or overuse injuries, or a strain of the muscles of the chest wall Respiratory. Pneumonia, collapsed lung (pneumothorax), or inflammation of the lining of the chest and lungs (pleurisy) Gastrointestinal. Esophageal reflux, heartburn, ulcers, or gallbladder disease Anxiety and panic disorders Nerve compression and inflammation Rare miscellaneous problems such as aortic aneurysm (a swelling of the large artery coming out of the heart) or pulmonary embolism (a blood clot in the lungs) Home care After your visit, follow these recommendations: Rest today and avoid strenuous activity. Take any prescribed medicine as directed. Be aware of any recurrent chest pain and notice any changes Follow-up care Follow up with your healthcare provider if you do not start to feel better within 24 hours, or as advised. Call 911 Call 911 if any of these occur: A change in the type of pain: if it feels different, becomes more severe, lasts longer, or begins to spread into your shoulder, arm, neck, jaw or back Shortness of breath or increased pain with breathing Weakness, dizziness, or fainting Rapid heart beat Crushing sensation in your chest When to seek medical advice Call your healthcare provider right away if any of the following occur: Cough with dark colored sputum (phlegm) or blood Fever of 100.4 F (38 C) or higher, or as directed by your healthcare provider Swelling, pain or redness in one leg [employer]. [address] [place] [id number]. All rights reserved. This information is not intended as a substitute for professional medical care. Always follow yourhealthcare professional's instructions. Follow Up Care 09/23/2023 14:44:54 With:GEORGE DE OLIVEIRA MD Address: [address] [place] [phone] When:2-4 days [facility] 07-21-2024 Emergency department Discharge summary Discharge Instructions Thank you for allowing [facility] to assist you with your healthcare needs. The following is importantdischarge information regarding your hospital visit. Diagnosis from Today's Visit Chest tightness High blood pressure What to Do Next Instructions from Your Care Team No qualifying data available. Post Acute Orders No qualifying data available. You Need to Schedule the Following Appointments Follow Up with GEORGE DE OLIVEIRA MD When:Within 2-4 days Where:[address] [place] [phone] Allergies Bydureon swelling and redness SEROquel sulfa drugs Medications Please ask your primary doctor or pharmacist before taking any other medication not listed, including over the counter drugs, herbal medications, vitamins and or supplements as they may interact withur home medications. What How Much When Instructions Last Dose Unchanged amLODIPine (amLODIPine 2.5 mg oral tablet) 1 tab(s) by mouth Once a day Unchanged cholecalciferol (Vitamin D3) 2,000 Milligram Once a day Unchanged clonazePAM (clonazePAM 0.5 mg oral tablet) take 1 tablet by mouth daily if needed for anxiety Unchanged insulin isophane (NPH) (HumuLIN N KwikPen 100 units/ mL subcutaneous PEN) 10 unit(s) Subcutaneous Two (2) times a day Unchanged insulin lispro (HumaLOG) (Insulin Lispro KwikPen 100 units/ mL injectable solution) 4 unit(s) Unchanged metFORMIN (MetFORMIN (Eqv-Glucophage XR) 500 mg oral tablet, EXTENDED RELEASE) 2 tab(s) Two (2) times a day Unchanged multivitamin, ( Multivitamins with Vitamin B Complex, Vitamin C, Minerals and L-Methylfolate oral capsule) 1 cap by mouth Every day Unchanged pantoprazole (pantoprazole 40 mg oral enteric coated tablet) take 1 tablet by mouth once daily Please take this list to your next doctor s visit. Bring all medications you take, including over the counter medications, herbals and other supplements with you to your doctor s visit. Patients and families are reminded to discard old lists and to update any records with all medication providers or retail pharmacies. Education Materials Uncontrolled High Blood Pressure (Established) Your blood pressure was unusually high today. This can occur if you ve missed doses of your blood pressure medicine. Or it can happen if you are taking other medicines. These include some asthma inhalers, decongestants, diet pills, and street drugs like cocaine and amphetamine. Other causes include: Weight gain More salt in your diet Smoking Caffeine Your blood pressure can also rise if you are emotionally upset or in intense pain. It may go back to normal after a period of rest. Blood pressure measurements are given as 2 numbers. Systolic blood pressure is the upper number. This is the pressure when the heart contracts. Diastolic blood pressure is the lower number. This is the pressure when the heart relaxes between beats. You will see your blood pressure readings written together. For example, a person with a systolic pressure of 118 and a diastolic pressure of 78 will have 118/78 written in the medical record. To be high blood pressure, the numbers must be higher when tested over a period of time. Blood pressure is categorized as normal, elevated, or stage 1 or stage 2 high blood pressure: Normal blood pressure is systolic of less than 120 and diastolic of less than 80 (120/80) Elevated blood pressure is systolic of 120 to 129 and diastolic less than 80 Stage 1 high blood pressure is systolic is 130 to 139 or diastolic between 80 to 89 Stage 2 high blood pressure is when systolic is 140 or higher or the diastolic is 90 or higher Uncontrolled high blood pressure can cause serious health problems. It raises your risk for heart attack, stroke, and heart failure. In general, if you have high blood pressure, keeping your blood pressure below 130/80 mmHg may help prevent these problems. Your healthcare provider may prescribe medicine to help control blood pressure if lifestyle changes are not enough. Home care It s important to take steps to lower your blood pressure. If you are taking blood pressure medicine, the guidelines below may help you need less or no medicines in the future. Start a weight-loss program if you are overweight. Cut back on the amount of salt in your diet: oAvoid high-salt foods like olives, pickles, smoked meats, and salted potato chips. oDon t add salt to your food at the table. oUse only small amounts of salt when cooking. Start an exercise program. Talk with your healthcare provider about what exercise program is best for you. It doesn t have to be difficult. Even brisk walking for 20 minutes 3 times a week is a good form of exercise. Avoid medicines that stimulates the heart. This includes many hjqi-lwk-piwgyib cold and sinus decongestant pills and sprays, as well as diet pills. Check the warnings about high blood pressure on thelabel. Before purchasing any djfl-mfa-xjaemfj medicines or supplements, always ask the pharmacist about the product's potential interaction with your high blood pressure and your medicines. Stimulants such as amphetamine or cocaine could be lethal for someone with high blood pressure. Never take these. Limit how much caffeine you drink. Or switch to noncaffeinated beverages. Stop smoking. If you are a long-time smoker, this can be hard. Enroll in a stop- smoking program to make it more likely that you will succeed. Talk with your provider about ways to quit. Learn how to handle stress better. This is an important part of any program to lower blood pressure. Learn ways to relax. These include meditation, yoga, and biofeedback. If medicines were prescribed, take them exactly as directed. Missing doses may cause your blood pressure to get out of control. If you miss a dose or doses of your medicines, check with your healthcare provider or pharmacist about what to do. Consider buying an automatic blood pressure machine. Your provider may recommend a certain type. You can get one of these at most pharmacies. Measure your blood pressure twice a day, in the morning, and in the late afternoon. Keep a written record of your home blood pressure readings and take the record to your medical appointments. Here are some additional guidelines on home blood pressure monitoring from the [place] [employer]. Don't smoke or drink coffee for 30 minutes Go to the bathroom before the test. Relax for 5 minutes before taking the measurement. Sit correctly. Be sure your back is supported. Don't sit on a couch or soft chair. Uncross your feet and place them flat on the floor. Place your arm on a solid, flat surface like a table with the upper arm at heart level. Make certain the middle of the cuff is directly above the bend of the elbow.Check the monitor's instruction manual for an illustration. Take multiple readings. When you measure, take 2 or 3 readings one minute apart and record all of the results. Take your blood pressure at the same time every day, or as your healthcare provider recommends. Record the date, time, and blood pressure reading. Take the record with you to your next appointment. If your blood pressure monitor has a built-in memory, simply take the monitor with you to your next appointment. Call your provider if you have several high readings. Don't be frightened by a single high reading,but if you get several high readings, check in with your healthcare provider. Note: When blood pressure reaches a systolic (top number) of 180 or higher or a diastolic (bottom number) of 110 or higher, emergency medical treatment is required. Call your healthcare provider immediately. Follow-up care Regular visits to your own healthcare provider for blood pressure and medicine checks are an important part of your care. Make a follow-up appointment as directed. Bring the record of your home bloodpressure readings to the appointment. When to seek medical advice Call your healthcare provider right away if any of these occur: Blood pressure reaches a systolic (top number) of 180 or higher or diastolic (bottom number) of 110or higher, emergency medical treatment is required. Chest, arm, shoulder, neck, or upper back pain Shortness of breath Severe headache Throbbing or rushing sound in the ears Nosebleed Extreme drowsiness, confusion, or fainting Dizziness or dizziness with spinning sensation (vertigo) Weakness in an arm or leg or on one side of the face Trouble speaking or seeing [id number] [employer]. [address] [place] [id number]. All rights reserved. This information is not intended as a substitute for professional medical care. Always follow yourhealthcare professional's instructions. Uncertain Causes of Chest Pain Chest pain can happen for a number of reasons. Sometimes the cause can't be determined. If your condition does not seem serious, and your pain does not appear to be coming from your heart, your healthcare provider may recommend watching it closely. Sometimes the signs of a serious problem take moretime to appear. Many problems not related to your heart can cause chest pain. These include: Musculoskeletal. Costochondritis is an inflammation of the tissues around the ribs that can occur from trauma or overuse injuries, or a strain of the muscles of the chest wall Respiratory. Pneumonia, collapsed lung (pneumothorax), or inflammation of the lining of the chest and lungs (pleurisy) Gastrointestinal. Esophageal reflux, heartburn, ulcers, or gallbladder disease Anxiety and panic disorders Nerve compression and inflammation Rare miscellaneous problems such as aortic aneurysm (a swelling of the large artery coming out of the heart) or pulmonary embolism (a blood clot in the lungs) Home care After your visit, follow these recommendations: Rest today and avoid strenuous activity. Take any prescribed medicine as directed. Be aware of any recurrent chest pain and notice any changes Follow-up care Follow up with your healthcare provider if you do not start to feel better within 24 hours, or as advised. Call 911 Call 911 if any of these occur: A change in the type of pain: if it feels different, becomes more severe, lasts longer, or begins to spread into your shoulder, arm, neck, jaw or back Shortness of breath or increased pain with breathing Weakness, dizziness, or fainting Rapid heart beat Crushing sensation in your chest When to seek medical advice Call your healthcare provider right away if any of the following occur: Cough with dark colored sputum (phlegm) or blood Fever of 100.4 F (38 C) or higher, or as directed by your healthcare provider Swelling, pain or redness in one leg [id number] [employer]. [address] [place] [address]. All rights reserved. This information is not intended as a substitute for professional medical care. Always follow yourhealthcare professional's instructions. Additional Information VACCINATE! IT SAVES LIVES! Members of the community who have not yet received the COVID-19 vaccine and would like to receive it can visit one of [facility] vaccine clinics. There are many vaccine clinic locations within the [facility]. For locations and available times, please visit www.gettheshot.coronavirus.[place].gov/. It is important to note that some COVID mobile vaccine clinics are held outdoors and may be canceled in rainy or stormy conditions. To learn more about pediatric vaccinations (ages 5-11), we invite you to visit the [facility] webpage. [email or web address]/[email or web address]-[email or web address] [email or web address] learn more about the COVID-19 vaccine, we invite you to visit the CDC website for a list of frequently asked questions. https://www.cdc.gov/coronavirus/2019-ncov/vaccines/faq.html [facility] Patient Portal Access Instructions: Stay connected with your healthcare team and access your personal medical information anytime with the [facility] Patient Portal. If you would like a full copy of your medical records please contact the [facility] Medical Records Department Sunday through Sunday between 8a.m. and 4:30p.m. Please follow the directions below to access the portal: 1.Access the email account you provided upon registration to the [facility].2.Look for an invitation email from [facility].3.Open the email and access the invitation link: Accept Invitation to [facility]4.Fill in the required king to create your account. Sign into [email or web address] with your username and password that you created in the above steps to stay up to date. You can then view a summary of results, a summary of your visits, and the ability to download your summaries to your computer or send the information securely to a physician. Remember that your healthcare information is confidential, so carefully consider who you will allow to register on the [facility] Patient Portal for access to your information. You can also access the [facility] Patient Portal on the [employer]. Simply click on Health Records under [employer] and then click on the [employer] logo. HOW TO SAFELY DISPOSE OF PRESCRIPTION MEDICATIONS Please use one of the following methods to safely dispose of your unused medications. 1.Use a drug disposal kit: the drug disposal pouch allows you to safely discard your old and unuseddrugs. Ask your nurse to give you one when you are discharged.2.Visit a local take-back location: Many local pharmacies and police departments have programs that collect old and unwanted prescriptiondrugs. Call your local pharmacy or go to http://bit.REALTIME.CO/5S6Bq2q to find one close to you.3.Make use of household items: Use cat litter or old coffee grounds to dispose medications if other options arenot available. Mix your drugs with these household products, seal them in an airtight container andthrow it into the garbage. Call [facility]: [phone] to be sure your drugs can be disposed of in this way. Some medicines may require a different approach.4.Never flush your medications down the toilet. IF YOU HAVE BEEN PRESCRIBED AN OPIOIDS FOR PAIN If you have been prescribed an opioid (such as hydrocodone, oxycodone or morphine), it is critical to understand the possible side effects and risks of opioid pain medications. Even when taken as directed, opioids can have several side effects including: Tolerance, meaning you might need to take more of a medication for the same pain relief. Nausea, vomiting and/or constipation. Sleepiness, dizziness, dry mouth, confusion, depression or itching. Physical dependence, meaning you have withdrawal symptoms when a medication is stopped ? this can develop within a few days. KNOW YOUR RESPONSIBILITIES It is important to know exactly how much and how often to take the opioid pain medications you are prescribed. Never take opioids in higher amounts or more often than prescribed. Do not combine opioids with alcohol or other drugs that cause drowsiness, such as benzodiazepines, also known as benzos,including diazepam and alprazolam, muscle relaxants or sleep aids. Never sell or share prescriptionopioids. This is illegal. Store opioids in a secure place and out of reach of others (including children, family, friends and visitors). The last page(s) of this document has been signed and retained as a CHART COPY Signatures Patient Education Materials High Blood Pressure, Established, Out of Control Chest Pain, Uncertain Cause Medication Leaflets My discharge plan and instructions have been reviewed and explained to me and ISANTIAGO BRANDI M understand my current condition and have read and understand these discharge instructions. I have received a written copy of the plan/instructions. If I have questions, I am aware that I should contact my doctor. 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 HISTORY: ORDERING SYSTEM PROVIDED HISTORY: Reason for Exam: pain, sob, FINDINGS: The cardiomediastinal silhouette appears normal. There is no focal consolidation. There is no pulmonary edema. There is no evidence of pleural effusion. There is no evidence of pneumothorax. No acute fracture is identified. IMPRESSION: No acute abnormality is identified. Interpreted by: Freddy Ireland Preliminary Report By: Freddy Ireland Electronically signed By Freddy Ireland Dictated Date: 09/23/2023 5:03:00 PM Prelim Date: 09/23/2023 5:03:58 PM Sign Date: 09/23/2023 5:03:58 PM Ordering Provider: [facility]07-21-2024 Hospital Discharge instructions Patient Education 09/23/2023 14:41:27 7 - Labor and Delivery Outpatient Instructions (CUSTOM) [facility] LABOR AND DELIVERY OUTPATIENT HOME-GOING INSTRUCTIONS _X_ [...] crackers, bananas, Jell-O, cooked carrots, applesauce. ___ [place] diet. Avoid caffeine, chocolate, alcohol, spiced/greasy foods. [...] and relax. Count the movements. You need tohave 10 movements in 2 hours. ___ If [...] the nearest Emergency Room for assistance. Form [id number] D: 02/10 Document Released: 02/19/2006 Document Revised: 02/08/2012 Document Reviewed: 02/19/2006 [facility] Patient Information 2012 [employer]. Follow Up Care 09/23/2023 13:56:24 With:GEORGE DE OLIVEIRA MD Address: [address] [place] [address] [place] [address]- [phone] When: Unknown Comments:Follow-up as scheduled [facility] 07-21-2024 NoteSinus rhythm Baseline wander in lead(s) V3,V4,V5,V6 Electronic Signature: RAYNE MARTI MD 09/23/2023 15:55:30[facility] 01-07-2024 Evaluation + Plan note Future Scheduled Tests Laboratory* hCG, quantitative(AO) 03/11/23 * hCG, quantitative(AO) 03/17/23 * hCG, quantitative(AO) 03/20/23 * hCG, quantitative(AO) 03/08/23 * hCG, quantitative(AO) 04/18/23 * hCG, quantitative(AO) 04/21/23 * hCG, quantitative(AO) 04/24/23 Radiology* US OB W/Biophysical Profile 10/25/23 * US OB W/Biophysical Profile 11/08/23 [facility] 11-04-2023 Note. MICRO - Microbiology PROCEDURE: Affirm Pathogens DNA [...] Locations *1: This test was performed at: [facility], [address] [place] [address], [address] , [facility] ([place])01-04-2023 Evaluation + Plan note Future Scheduled Tests Laboratory* HIV 1/2 Ab 01/04/23 [facility] 06-01-2023 Evaluation + Plan note Diagnostic Tests Pending * Estrogen, Fractionated Blood 08/03/22 * Testosterone, Free and Total 08/03/22 Future Scheduled Tests Laboratory* Thyroid Stimulating Hormone 08/29/21 * Free T4 08/29/21 * A1C Hemoglobin 08/29/21 * Complete Blood Count 08/29/21 * Free T3 08/29/21 * Lipid Profile 08/29/21 * Complete Metabolic Panel 08/29/21 [facility] 03-30-2023 Evaluation + Plan note Future Scheduled Tests Laboratory* Pathology Manager Monitoring Request 06/01/22 * Thyroid Stimulating Hormone 08/29/21 * Free T4 08/29/21 * A1C Hemoglobin 08/29/21 * Complete Blood Count 08/29/21 * Free T3 08/29/21 * Lipid Profile 08/29/21 * Complete Metabolic Panel 08/29/21 [facility] 03-15-[address] Zazueta [facility] May 17, 2022 3:51pm Note Date/Time May 17, 2022 2:0 4pm [facility] Medical Records Department [address] [place] [id number] Emergency Department Summary 05/17/22 MR#: [id number] Acct: [id number] Name: DORY HENDERSON Rep #:[id number] : 1985 37 From: Jessika Zazueta MD PCP: Dr. Yanelis Jones MD Status:REG ER Location: ED HPI History of Present Illness Chief Complaint: Nausea/Vomiting/Diarrhea Informant: patient Onset/Context/Timing Onset: Today Current Severity: Moderate Maximum Severity: Severe Narrative Narrative: Patient presents secondary to nausea, vomiting, and diarrhea. She states her symptoms started early this morning. She has members of her household that are ill with similar. No known fever. Mild suprapubic left lower quadrant pain. No urinary symptoms. Denies possibility of and has IUD in place. [facility] Medical History BPPV (benign paroxysmal positional vertigo) Home Medications Omeprazole 05/07/20 [History Last Taken Unknown] acetaminophen 500 mg tablet 500 mg PO Q6H PRN PRN Headache 05/07/20 [History Last Taken 05/07/20 15:00 1000 mg] rnagiqoaaj-eevgdxmdvfvtj-luegqndd 50 mg-325 mg-40 mg tablet 1 - 2 tab PO Q4H PRNPRN Headache 05/07/20 [History Last Taken 05/07/20 21:30 2] omeprazole 40 mg capsule,delayed release 40 mg PO DAILY 05/07/20 [History Last Taken 05/06/20 10:00] sertraline 100 mg tablet 125 mg PO DAILY 05/07/20 [History Last Taken 05/07/20 10:00] acetaminophen 500 mg tablet 1,000 mg PO Q8H PRN PRN HEADACHE 1-10 05/09/20 [Rx Last Taken Unknown] ibuprofen 600 mg tablet 600 mg PO Q6H PRN PRN HEADACHE 1-10 #0 tabs 05/09/20 [Rx Last Taken Unknown] labetalol 100 mg tablet 100 mg PO TID #30 tabs 05/09/20 [Rx Last Taken Unknown] amoxicillin 875 mg-potassium clavulanate 125 mg tablet 1 tab PO Q12H #20 tabs 02/24/21 [Rx Last Taken Unknown] meclizine 25 mg tablet 25 mg PO TID PRN dizziness #20 tabs 03/23/22 [Rx Last Taken Unknown] omeprazole 40 mg capsule,delayed release 40 mg PO DAILY 14 days #14 caps 05/17/22 [Rx Last Taken Unknown] promethazine 25 mg tablet 25 mg PO Q6H PRN nausea and vomiting #20 tabs 05/17/22[Rx Last Taken Unknown] Allergy/AdvReac Type Severity Reaction Status Date / Time quetiapine fumarate Allergy Other Verified 05/17/22 13:01 [From Seroquel] Sulfa (Sulfonamide AdvReac Diarrhea Verified 05/17/22 13:01 Antibiotics) Social History Smoking Status: Never smoker ROS ROS ED Constitutional Constitutional ED: Denies chills or fever(s) Eyes Eyes: Denies change in vision or discharge from eye(s) ENT ENT ED: Denies discharge from eye(s), rhinorrhea or sore throat Cardiovascular Cardiovascular: Denies chest pain or palpitations Respiratory/Chest Respiratory/Chest: Denies cough or dyspnea Gastrointestinal Gastrointestinal: Reports abdominal pain, diarrhea, nausea and vomiting Genitourinary Genitourinary ED: Reports other Details: Decreased urination Musculoskeletal Musculoskeletal: Denies back pain or extremity pain Integumentary Denies Abrasions or rash Neurologic Neurologic: Denies headache(s) or weakness Allergic/Immunologic Allergic/Immunologic ED: Denies lip swelling or urticaria EXAM Physical Exam Const Vital Signs: 05/17/22 12:59 Temperature 97.4 F L Temperature Source Temporal Pulse Rate 126 H Respiratory Rate 18 Blood Pressure 136/96 H Blood Pressure Mean 109 Pulse Ox 98 Oxygen Delivery Method Room Air Positive well nourished and well developed General Appearance ED: well developed HEENT Reports normocephalic and head/scalp atraumatic Eyes PERRL and EOMs intact bilaterally Neck supple Chest Wall inspection of chest normal and palpation of chest normal Resp normal respiratory effort and clear to auscultation bilaterally Cardio regular rate and regular rhythm GI non-tender Auscultation: hypoactive bowel sounds Palpation: soft Extremity normal to inspection Neuro oriented x3 and no sensory deficits noted Sensorium / Orientation: alert Motor Exam: strength 5/5 throughout Psych mental status grossly normal Skin no rashes or lesions noted MDM MDM MDM Narrative Medical decision making narrative: Patient given IV fluids. Labwork obtained to evaluate for leukocytosis, anemia,and electrolyte derangement. Patient took Zofran at home earlier and had no improvement in her symptoms. She is given Phenergan at this time. Lab Data Attestation: I reviewed the patient's lab results. Labs: Laboratory Results - last 24 hr 05/17/22 05/17/22 14:18 14:18 WBC 16.4 H RBC 5.81 H Hgb 15.1 H Hct 46.4 MCV 79.9 L MCH 26.0 L MCHC 32.5 RDW Std Deviation 39.9 RDW Coeff of Drake 13.9 Plt Count 331 MPV 10.2 Immature Gran % (Auto) 0.900 Neut % (Auto) 93.9 H Lymph % (Auto) 2.6 L Blackford % (Auto) 2.3 Eos % (Auto) 0.1 Baso % (Auto) 0.2 Absolute Neuts (auto) 15.4 H Absolute Lymphs (auto) 0.42 L Nucleated RBC % 0 Sodium 135 L Potassium 3.6 Chloride 98 Carbon Dioxide 26.0 Anion Gap 11 BUN 14 Creatinine 0.79 Estim Creat Clear Calc 85.83 Est GFR (MDRD) Af Amer 106 Est GFR (MDRD) Non-Af 88 BUN/Creatinine Ratio 17.7 Glucose 190 H Calcium 9.2 Treatment and Re-Evaluation :: CBC was white count of 16.4, likely reactive from vomiting. Hemoglobin is concentrated at 15.1 consistent with mild dehydration. Chemistry studies are unremarkable. On repeat evaluation patient is able to tolerate ice chips. She is complaining of burning sensation in her abdomen just likely secondary to stomach acid. I will write her for Prilosec as well as Phenergan. Return instructions provided. Discharge Plan Triage Chief Complaint: Nausea/Vomiting/Diarrhea ED Provider: Jessika Zazueta Dx/Rx/DC Orders Clinical Impression: Viral gastroenteritis Instructions: ED Gastroenteritis, Viral (Adult) Prescriptions: New promethazine 25 mg tablet 25 mg PO Q6H PRN (Reason: nausea and vomiting) Qty: 20 0RF omeprazole 40 mg capsule,delayed release(DR/EC) 40 mg PO DAILY 14 Days Qty: 14 0RF No Action amoxicillin-pot clavulanate 875-125 mg tablet 1 tab PO Q12H Qty: 20 0RF meclizine 25 mg tablet 25 mg PO TID PRN (Reason: dizziness) Qty: 20 0RF sertraline 100 MG tablet 125 mg PO DAILY omeprazole 40 MG capsule,delayed release(DR/EC) 40 mg PO DAILY acetaminophen 500 MG tablet 500 mg PO Q6H PRN PRN (Reason: Headache) yxengpqgvc-sihikknfcnxgq-lcrn 1 TABLET tablet 1 - 2 tab PO Q4H PRN PRN (Reason: Headache) Omeprazole acetaminophen 500 MG tablet 1,000 mg PO Q8H PRN PRN (Reason: HEADACHE 1-10) 0RF ibuprofen 600 MG tablet 600 mg PO Q6H PRN PRN (Reason: HEADACHE 1-10) Qty: 0 0RF labetalol 100 MG tablet 100 mg PO TID Qty: 30 0RF Primary Care Provider: Yanelis Jones Referrals: Yanelis Jones MD [Primary Care Provider] - 3-5 Days if not improving Disposition Disposition: Home, Self Care What to do if you have Problems For any increased pain, shortness of breath, bleeding, nausea or vomiting, chestpain, or any unexpected problems, contact your Primary Care Provider. Call [facility] ([phone]) or report to the closest Emergency Room. Call 911 if necessary. 05/17/22 1551 <Electronically signed by Jessika Zazueta MD> Cosigner Signature (if applicable): CC: Dr. Yanelis Jones MD ~ Signed [facility] Work Phone: 1(430) 756-127502-07-2022 Hospital Discharge instructions Patient Education 04/11/2021 21:12:45 7b- Depression and Blues (12/2019)(CUSTOM) [facility] Depression and Blues All mothers are at risk of developing depression or the blues. These mood changes can occur right after giving , or they may occur many months after giving . blues or depression can be mild or severe. Additionally, depression can goaway rather quickly, or it can be a long-term condition. CAUSES Raised hormone levels and the rapid drop in those levels are thought to be a main cause of depression and blues. A number of hormones change during and after . Estrogenand progesterone usually decrease right after delivery. The [...] a health care provider may use to identifythose with blues, depression, or psychosis. Often, a screening tool called the [place] Depression Scale is used to diagnose depression in the period. TREATMENT blues usually goes away on its own in 1 2 weeks. Social support is often all that is needed. You will be encouraged to get adequate sleep and rest. Occasionally, you may be given medicinesto help you sleep. depression requires treatment because it can last several months or longer if it is not treated. Treatment may include individual or group therapy, medicine, or both to address any social,physiological, and psychological factors that may play a [...] music. Avoid alcohol. Ask for help with grease refining supervisor, cooking, grocery shopping, or running errands as needed. Do nottry to do everything. Talk to people close to you about how you are feeling. Get support from your partner, family members, and friends. Try to stay positive in how you think. Think about the things you are grateful for. Do not spend a lot of time alone. Only take ytxj-aix-mhkftsm or prescription medicine as directed by your [...] not doing well or get worse. Resource: [facility] Patient Information 2015 [employer] [facility]. This information is not intended to replace advicegiven to you by your health care provider. [...] care provider will measure your blood pressure whileyou are seated, with your arm held at the level of your heart. It should be measured at least twiceusing the same arm. Certain conditions can cause [...] health care provider. Follow the directions carefully. Bloodpressure medicines must be taken as prescribed. The [...] 02/19/2006 Document Revised: 02/24/2014 Document Reviewed: 12/12/2013 [facility] Patient Information 2015 [employer]. This information is not intended to replace advicegiven to you by your health care provider. [...] Follow these instructions at home: Medicines Take ynye-pvh-aoijvqg and prescription medicines only as told by your health care provider. If you were prescribed an antibiotic medicine, take it as told by your health care provider. Do notstop taking the antibiotic until it is finished. Driving Do not drive or operate heavy machinery while taking prescription pain medicine. Do not drive for 24 hours if you received a sedative. Lifestyle Do not drink alcohol. This is especially important if you are or taking medicine to relieve pain. Do not use tobacco products, including cigarettes, chewing tobacco, or e- cigarettes. If you need help quitting, ask your [...] area every day for signs of infection. Checkfor: ?More redness, swelling, or pain. ?More fluid [...] 02/16/2001 Document Revised: 08/02/2016 Document Reviewed: 03/05/2016 [employer] Patient Education 2019 [employer]. Follow Up Care 04/11/2021 08:39:57 With:GEORGE DE OLIVEIRA Address: [address] [place] [phone]- [phone] Business (1) When:Within 5 Day(s) Comments:for blood pressure check With:GEORGE DE OLIVEIRA MD Address: [address] [place] [phone]- [phone] When: Unknown Comments:please schedule a visit for 3 weeks post delivery [facility] 01-31-2022 Hospital Discharge instructions Patient Education 04/04/2021 02:22:18 [place] [facility] Outpatient Instructions (AORN) [facility] LABOR AND DELIVERY OUTPATIENT HOME-GOING INSTRUCTIONS _X_ [...] crackers, bananas, Jell-O, cooked carrots, applesauce. ___ [place] diet. Avoid caffeine, chocolate, alcohol, spiced/greasy foods. [...] the nearest Emergency Room for assistance. Form [id number] D: 02/10 Follow Up Care 04/04/2021 01:07:42 With:Follow up with primary care provider Address: When: Unknown Comments:pt has appt this am for US and office visit [facility] 01-24-2022 Hospital Discharge instructions Patient Education 03/28/2021 12:12:04 7 - Labor and Delivery Outpatient Instructions (CUSTOM) [facility] LABOR AND DELIVERY OUTPATIENT HOME-GOING INSTRUCTIONS _X_ [...] crackers, bananas, Jell-O, cooked carrots, applesauce. ___ [place] diet. Avoid caffeine, chocolate, alcohol, spiced/greasy foods. [...] the nearest Emergency Room for assistance. Form [id number] D: 02/10 Document Released: 02/19/2006 Document Revised: 02/08/2012 Document Reviewed: 02/19/2006 ExitCare Patient Information 2011 [employer]. [facility] 01-17-2022 Hospital Discharge instructions Patient Education 03/21/2021 16:15:55 7 - Labor and Delivery Outpatient Instructions(CUSTOM) [facility] LABOR AND DELIVERY OUTPATIENT HOME-GOING INSTRUCTIONS _X_ [...] crackers, bananas, Jell-O, cooked carrots, applesauce. ___ [place] diet. Avoid caffeine, chocolate, alcohol, spiced/greasy foods. [...] the nearest Emergency Room for assistance. Form [id number] D: 02/10 Document Released: 02/19/2006 Document Revised: 02/08/2012 Document Reviewed: 02/19/2006 [facility] Patient Information 2012 [employer]. 03/21/2021 16:14:07 24-Hour Urine Collection 24-Hour Urine Collection A 24-hour urine specimen is a lab test that requires collection of all your urine for an entire day. This is sometimes called a timed urine test. It can provide more information than a single urine sample. There are many reasons to have this test. Your health care provider may order the test to check foror monitor the following conditions: High blood pressure. Kidney disease. Kidney stones. Urinary tract infections. . Diabetes. How do I prepare for this test? You may be asked to follow a special diet during or before the collection period. Follow any instructions from your health care provider. If no special instructions are given, you may eat and drink normally. Take kvzz-gbd-uckhfww and prescription medicines only as told by your health care provider. Let your health care provider know about any medicines that you are taking, including hugc-olx-uwoxkbg medicines, vitamins, herbs, and supplements. Choose a [...] is okay. Do not throw out the liquidor rinse out the jug. Some tests need [...] 05/18/2009 Document Revised: 06/09/2019 Document Reviewed: 03/04/2018 [employer] Patient Education 2020 [employer] Follow Up Care 03/21/2021 15:20:51 With:GEORGE DE OLIVEIRA MD Address: [phone] When:03/31/2021 16:13:00 [facility] 01-13-2022 Evaluation + Plan note Future Scheduled Tests Laboratory* Antibody Screen Gel 03/17/21 * Type and Screen (AO) 03/17/21 * Thyroid Stimulating Hormone 08/29/21 * Free T4 08/29/21 * A1C Hemoglobin 08/29/21 * Complete Blood Count 08/29/21 * Free T3 08/29/21 * Lipid Profile 08/29/21 * Complete Metabolic Panel 08/29/21 [facility] 01-10-2022 Hospital Discharge instructions Patient Education 03/14/2021 17:59:10 7 - Labor and Delivery Outpatient Instructions (CUSTOM) [facility] LABOR AND DELIVERY OUTPATIENT HOME-GOING INSTRUCTIONS _X_ [...] crackers, bananas, Jell-O, cooked carrots, applesauce. ___ [place] diet. Avoid caffeine, chocolate, alcohol, spiced/greasy foods. [...] and relax. Count the movements. You need tohave 10 movements in 2 hours. ___ If [...] the nearest Emergency Room for assistance. Form [id number] D: 02/10 Document Released: 02/19/2006 Document Revised: 02/08/2012 Document Reviewed: 02/19/2006 ExitCare Patient Information 2012 [employer]. Follow Up Care 03/14/2021 17:16:13 With:GEORGE DE OLIVEIRA MD Address: [phone] When: Unknown Comments:Follow-up as scheduled [facility] Evaluation + Plan note Future Appointments Appointment Date:12/16/2020 11:00:00 AM Scheduled Provider:GEORGE DE OLIVEIRA MD Location:[facility] Appointment Type: OV OB Routine Follow Up Future Scheduled Tests Laboratory* Panel (AO) 09/27/20 * Panel (AO) 10/18/20 * Glucose 1 Hour Challenge 09/27/20 * Thyroid Stimulating Hormone 09/27/20 * Urine Culture 09/27/20 * A1C Hemoglobin 09/27/20 * Hepatitis C Antibody IgG 09/27/20 * Varicella Zoster Antibody 09/27/20 Radiology* US OB < 14 weeks 09/21/20 [facility] Evaluation + Plan note Future Appointments Appointment Date:01/17/2021 09:30:00 AM Scheduled Provider:GEORGE DE OLIVEIRA MD Location:[facility] Appointment Type:[facility] OB Routine Follow Up Future Scheduled Tests Laboratory* Panel (AO) 09/27/20 * Panel (AO) 10/18/20 * Glucose 1 Hour Challenge 09/27/20 * Thyroid Stimulating Hormone 09/27/20 * Urine Culture 09/27/20 * A1C Hemoglobin 09/27/20 * Hepatitis C Antibody IgG 09/27/20 * Varicella Zoster Antibody 09/27/20 Radiology* US OB < 14 weeks 09/21/20 [facility] Evaluation + Plan note Future Appointments Appointment Date:03/17/2021 09:00:00 AM Scheduled Provider:GEORGE DE OLIVEIRA MD Location:[facility] Appointment Type: OV OB Routine Follow Up Future Scheduled Tests Laboratory* Panel (AO) 09/27/20 * Panel (AO) 10/18/20 * Glucose 1 Hour Challenge 09/27/20 * Thyroid Stimulating Hormone 09/27/20 * Urine Culture 09/27/20 * A1C Hemoglobin 09/27/20 * Hepatitis C Antibody IgG 09/27/20 * Varicella Zoster Antibody 09/27/20 Radiology* US OB < 14 weeks 09/21/20 [facility] Evaluation + Plan note Future Appointments Appointment Date:03/31/2021 09:15:00 AM Scheduled Provider:GEORGE DE OLIVEIRA MD Location:[facility] Appointment Type: OV OB Routine Follow Up Future Scheduled Tests Laboratory* Panel (AO) 09/27/20 * Panel (AO) 10/18/20 * Antibody Screen Gel 03/17/21 * Type and Screen (AO) 03/17/21 * Glucose 1 Hour Challenge 09/27/20 * Thyroid Stimulating Hormone 09/27/20 * Urine Culture 09/27/20 * A1C Hemoglobin 09/27/20 * Hepatitis C Antibody IgG 09/27/20 * Varicella Zoster Antibody 09/27/20 Radiology* US OB < 14 weeks 09/21/20 [facility] Evaluation + Plan note Future Appointments Appointment Date:03/31/2021 09:15:00 AM Scheduled Provider:GEORGE DE OLIVEIRA MD Location:[facility] Appointment Type: OV OB Routine Follow Up Diagnostic Tests Pending * 24 Hr Urine Total Protein (AO) 03/21/21 Future Scheduled Tests Laboratory* Panel (AO) 09/27/20 * Panel (AO) 10/18/20 * Antibody Screen Gel 03/17/21 * Type and Screen (AO) 03/17/21 * Glucose 1 Hour Challenge 09/27/20 * Thyroid Stimulating Hormone 09/27/20 * Urine Culture 09/27/20 * A1C Hemoglobin 09/27/20 * Hepatitis C Antibody IgG 09/27/20 * Varicella Zoster Antibody 09/27/20 Radiology* US OB < 14 weeks 09/21/20 [facility] Evaluation + Plan note Future Appointments Appointment Date:03/28/2021 10:30:00 AM Scheduled Provider: Location:[facility] Appointment Type:US OB W/Biophysical Profile Appointment Date:03/31/2021 09:15:00 AM Scheduled Provider:GEORGE DE OLIVEIRA MD Location:[facility] Appointment Type: OV OB Routine Follow Up Future Scheduled Tests Laboratory* Panel (AO) 09/27/20 * Panel (AO) 10/18/20 * Antibody Screen Gel 03/17/21 * Type and Screen (AO) 03/17/21 * Glucose 1 Hour Challenge 09/27/20 * Thyroid Stimulating Hormone 09/27/20 * Urine Culture 09/27/20 * A1C Hemoglobin 09/27/20 * Hepatitis C Antibody IgG 09/27/20 * Varicella Zoster Antibody 09/27/20 Radiology* US OB < 14 weeks 09/21/20 * US OB W/Biophysical Profile 03/28/21 [facility] Evaluation + Plan note Future Appointments Appointment Date:04/25/2021 09:00:00 AM Scheduled Provider:GEORGE DE OLIVEIRA MD Location:[facility] Appointment Type: OV Future Scheduled Tests Laboratory* Panel (AO) 09/27/20 * Panel (AO) 10/18/20 * Antibody Screen Gel 03/17/21 * Type and Screen (AO) 03/17/21 * Glucose 1 Hour Challenge 09/27/20 * Thyroid Stimulating Hormone 09/27/20 * Urine Culture 09/27/20 * A1C Hemoglobin 09/27/20 * Hepatitis C Antibody IgG 09/27/20 * Varicella Zoster Antibody 09/27/20 Radiology* US OB < 14 weeks 09/21/20 [facility] Evaluation + Plan note Future Appointments Appointment Date:12/12/2021 09:00:00 AM Scheduled Provider:GEORGE DE OLIVEIRA MD Location:[facility] Appointment Type: OV Annual Exam Appointment Date:12/26/2021 09:45:00 AM Scheduled Provider:GEORGE DE OLIVEIRA MD Location:[facility] Appointment Type:[facility] Future Scheduled Tests Laboratory* Antibody Screen Gel 03/17/21 * Type and Screen (AO) 03/17/21 * Thyroid Stimulating Hormone 08/29/21 * Free T4 08/29/21 * A1C Hemoglobin 08/29/21 * Complete Blood Count 08/29/21 * Free T3 08/29/21 * Lipid Profile 08/29/21 * Complete Metabolic Panel 08/29/21 [facility] Evaluation + Plan note Future Appointments Appointment Date:06/01/2022 09:30:00 AM Scheduled Provider:GEORGE DE OLIVEIRA MD Location:[facility] Appointment Type: OV Annual Exam Future Scheduled Tests Laboratory* Antibody Screen Gel 03/17/21 * Type and Screen (AO) 03/17/21 * Thyroid Stimulating Hormone 08/29/21 * Free T4 08/29/21 * A1C Hemoglobin 08/29/21 * Complete Blood Count 08/29/21 * Free T3 08/29/21 * Lipid Profile 08/29/21 * Complete Metabolic Panel 08/29/21 [facility] Evaluation + Plan note Future Appointments Appointment Date:07/12/2023 09:30:00 AM Scheduled Provider:MERON CHAVARRIA Location:[facility] Appointment Type: OV OB Routine Follow Up Diagnostic Tests Pending * Rapid Plasma Reagin Test 06/14/23 * Rubella Antibody 06/14/23 Future Scheduled Tests Laboratory* hCG, quantitative(AO) 03/11/23 * hCG, quantitative(AO) 03/17/23 * hCG, quantitative(AO) 03/20/23 * hCG, quantitative(AO) 03/08/23 * hCG, quantitative(AO) 04/18/23 * hCG, quantitative(AO) 04/21/23 * hCG, quantitative(AO) 04/24/23 * HIV 1/2 Ab 01/04/23 [facility] Evaluation + Plan note Future Appointments Appointment Date:07/12/2023 09:30:00 AM Scheduled Provider:MERON CHAVARRIA Location:[facility] Appointment Type: OV OB Routine Follow Up Future Scheduled Tests Laboratory* hCG, quantitative(AO) 03/11/23 * hCG, quantitative(AO) 03/17/23 * hCG, quantitative(AO) 03/20/23 * hCG, quantitative(AO) 03/08/23 * hCG, quantitative(AO) 04/18/23 * hCG, quantitative(AO) 04/21/23 * hCG, quantitative(AO) 04/24/23 * HIV 1/2 Ab 01/04/23 [facility] Evaluation + Plan note Future Appointments Appointment Date:08/30/2023 09:45:00 AM Scheduled Provider:GEORGE DE OLIVEIRA MD Location:[facility] Appointment Type: OV OB Routine Follow Up Future Scheduled Tests Laboratory* hCG, quantitative(AO) 03/11/23 * hCG, quantitative(AO) 03/17/23 * hCG, quantitative(AO) 03/20/23 * hCG, quantitative(AO) 03/08/23 * hCG, quantitative(AO) 04/18/23 * hCG, quantitative(AO) 04/21/23 * hCG, quantitative(AO) 04/24/23 * HIV 1/2 Ab 01/04/23 [facility] Evaluation + Plan note Future Appointments Appointment Date:09/27/2023 09:30:00 AM Scheduled Provider:GEORGE DE OLIVEIRA MD Location: [facility] Appointment Type: OV OB Routine Follow Up Future Scheduled Tests Laboratory* ABO/Rh (Gel) 08/30/23 * Antibody Screen (Gel) 08/30/23 * Antibody Screen (Gel) 08/30/23 * hCG, quantitative(AO) 03/11/23 * hCG, quantitative(AO) 03/17/23 * hCG, quantitative(AO) 03/20/23 * hCG, quantitative(AO) 03/08/23 * hCG, quantitative(AO) 04/18/23 * hCG, quantitative(AO) 04/21/23 * hCG, quantitative(AO) 04/24/23 * Rapid Plasma Reagin Test 08/30/23 * Complete Blood Count 08/30/23 * HIV 1/2 Ab 01/04/23 [facility] Evaluation + Plan note Future Appointments Appointment Date:11/08/2023 08:00:00 AM Scheduled Provider: Location:[facility] Appointment Type:US OB W/Biophysical Profile Appointment Date:11/08/2023 09:15:00 AM Scheduled Provider:GEORGE DE OLIVEIRA MD Location:[facility] Appointment Type: OV OB Routine Follow Up Appointment Date:11/15/2023 08:00:00 AM Scheduled Provider: Location:[facility] Appointment Type:US OB W/Biophysical Profile Appointment Date:11/15/2023 09:15:00 AM Scheduled Provider:GEORGE DE OLIVEIRA MD Location:[facility] Appointment Type: OV OB Routine Follow Up Appointment Date:11/22/2023 08:00:00 AM Scheduled Provider: Location:[facility] Appointment Type:US OB W/Biophysical Profile Appointment Date:11/22/2023 09:15:00 AM Scheduled Provider:GEORGE DE OLIVEIRA MD Location:[facility] Appointment Type: OV OB Routine Follow Up Appointment Date:11/29/2023 09:15:00 AM Scheduled Provider:GEORGE DE OLIVEIRA MD Location:[facility] Appointment Type: OV OB Routine Follow Up Future Scheduled Tests Laboratory* hCG, quantitative(AO) 03/11/23 * hCG, quantitative(AO) 03/17/23 * hCG, quantitative(AO) 03/20/23 * hCG, quantitative(AO) 03/08/23 * hCG, quantitative(AO) 04/18/23 * hCG, quantitative(AO) 04/21/23 * hCG, quantitative(AO) 04/24/23 Radiology* US OB W/Biophysical Profile 10/25/23 * US OB W/Biophysical Profile 11/08/23 * US OB W/Biophysical Profile 11/15/23 * US OB W/Biophysical Profile 11/22/23 [facility] Evaluation + Plan note Future Appointments Appointment Date:11/15/2023 08:00:00 AM Scheduled Provider: Location:[facility] Appointment Type:US OB W/Biophysical Profile Appointment Date:11/15/2023 09:15:00 AM Scheduled Provider:GEORGE DE OLIVEIRA MD Location:[facility] Appointment Type: OV OB Routine Follow Up Appointment Date:11/22/2023 08:00:00 AM Scheduled Provider: Location:[facility] Appointment Type:US OB W/Biophysical Profile Appointment Date:11/22/2023 09:15:00 AM Scheduled Provider:GEORGE DE OLIVEIRA MD Location:[facility] Appointment Type: OV OB Routine Follow Up Appointment Date:11/29/2023 09:15:00 AM Scheduled Provider:GEORGE DE OLIVEIRA MD Location:[facility] Appointment Type: OV OB Routine Follow Up Future Scheduled Tests Laboratory* hCG, quantitative(AO) 03/11/23 * hCG, quantitative(AO) 03/17/23 * hCG, quantitative(AO) 03/20/23 * hCG, quantitative(AO) 03/08/23 * hCG, quantitative(AO) 04/18/23 * hCG, quantitative(AO) 04/21/23 * hCG, quantitative(AO) 04/24/23 Radiology* US OB W/Biophysical Profile 10/25/23 * US OB W/Biophysical Profile 11/08/23 * US OB W/Biophysical Profile 11/15/23 * US OB W/Biophysical Profile 11/22/23 [facility] Evaluation + Plan note Future Appointments Appointment Date:11/29/2023 08:00:00 AM Scheduled Provider: Location:[facility] Appointment Type:US OB W/Biophysical Profile Appointment Date:11/29/2023 09:15:00 AM Scheduled Provider:GEORGE DE OLIVEIRA MD Location:[facility] Appointment Type: OV OB Routine Follow Up Future Scheduled Tests Laboratory* hCG, quantitative(AO) 03/11/23 * hCG, quantitative(AO) 03/17/23 * hCG, quantitative(AO) 03/20/23 * hCG, quantitative(AO) 03/08/23 * hCG, quantitative(AO) 04/18/23 * hCG, quantitative(AO) 04/21/23 * hCG, quantitative(AO) 04/24/23 Radiology* US OB W/Biophysical Profile 11/29/23 * US OB W/Biophysical Profile 10/25/23 * US OB W/Biophysical Profile 11/08/23 [facility] Evaluation + Plan note Future Appointments Appointment Date:02/25/2024 09:45:00 AM Scheduled Provider:GEORGE DE OLIVEIRA MD Location:[facility] Appointment Type: OV Future Scheduled Tests Laboratory* hCG, quantitative(AO) 03/11/23 * hCG, quantitative(AO) 03/17/23 * hCG, quantitative(AO) 03/20/23 * hCG, quantitative(AO) 03/08/23 * hCG, quantitative(AO) 04/18/23 * hCG, quantitative(AO) 04/21/23 * hCG, quantitative(AO) 04/24/23 Radiology* US OB W/Biophysical Profile 10/25/23 * US OB W/Biophysical Profile 11/08/23 [facility] Evaluation + Plan note Future Appointments Appointment Date:11/22/2023 08:00:00 AM Scheduled Provider: Location:[facility] Appointment Type:US OB W/Biophysical Profile Appointment Date:11/22/2023 09:15:00 AM Scheduled Provider:GEORGE DE OLIVEIRA MD Location:[facility] Appointment Type: OV OB Routine Follow Up Appointment Date:11/29/2023 09:15:00 AM Scheduled Provider:GEORGE DE OLIVEIRA MD Location: [facility] Appointment Type: OV OB Routine Follow Up Future Scheduled Tests Laboratory* hCG, quantitative(AO) 03/11/23 * hCG, quantitative(AO) 03/17/23 * hCG, quantitative(AO) 03/20/23 * hCG, quantitative(AO) 03/08/23 * hCG, quantitative(AO) 04/18/23 * hCG, quantitative(AO) 04/21/23 * hCG, quantitative(AO) 04/24/23 Radiology* US OB W/Biophysical Profile 10/25/23 * US OB W/Biophysical Profile 11/08/23 * US OB W/Biophysical Profile 11/22/23 [facility] Evaluation + Plan note Future Appointments Appointment Date:07/17/2024 09:30:00 AM Scheduled Provider:YVON NOE MD Location:[facility] Appointment Type:[employer] Future Scheduled Tests Laboratory* hCG, quantitative(AO) 04/18/23 * hCG, quantitative(AO) 04/21/23 * hCG, quantitative(AO) 04/24/23 Radiology* US OB W/Biophysical Profile 10/25/23 * US OB W/Biophysical Profile 11/08/23 [facility] Evaluation + Plan note Future Appointments Appointment Date:07/17/2024 09:30:00 AM Scheduled Provider:YVON NOE MD Location:[facility] Appointment Type:[employer] Future Scheduled Tests Laboratory* hCG, quantitative(AO) 04/24/23 Radiology* US OB W/Biophysical Profile 10/25/23 * US OB W/Biophysical Profile 11/08/23 [facility] Evaluation + Plan note Future Appointments Appointment Date:07/31/2024 12:00:00 PM Scheduled Provider:YVON NOE MD Location:[facility] Appointment Type:ENDO OV Appointment Date:03/02/2025 09:30:00 AM Scheduled Provider:GEORGE DE OLIVEIRA MD Location: [facility] Appointment Type: OV Annual Exam Future Scheduled Tests Laboratory* Cortisol Level 07/24/24 * Albumin/Creatinine Ratio, Random Urine 07/17/24 * MISC Lab Send out (Blood Specimens) 07/24/24 Radiology* US OB W/Biophysical Profile 10/25/23 * US OB W/Biophysical Profile 11/08/23 [facility] Evaluation + Plan note Future Appointments Appointment Date:07/31/2024 11:00:00 AM Scheduled Provider:YVON NOE MD Location:[facility] Appointment Type:ENDO OV Appointment Date:03/02/2025 09:30:00 AM Scheduled Provider:GEORGE DE OLIVEIRA MD Location:[facility] Appointment Type: OV Annual Exam Diagnostic Tests Pending * Dexamethasone Serum 07/29/24 Future Scheduled Tests Laboratory* Albumin/Creatinine Ratio, Random Urine 07/17/24 Radiology* US OB W/Biophysical Profile 10/25/23 * US OB W/Biophysical Profile 11/08/23 [facility] Evaluation + Plan note Future Appointments Appointment Date:09/04/2024 02:45:00 PM Scheduled Provider:YVON NOE MD Location:[facility] Appointment Type:ENDO OV Appointment Date:03/02/2025 09:30:00 AM Scheduled Provider:GEORGE DE OLIVEIRA MD Location:[facility] Appointment Type:[facility] Annual Exam Diagnostic Tests Pending * Cortisol, Urinary Free 08/05/24 * MISC Lab Send Out (Non-Blood Specimens) 08/05/24 Future Scheduled Tests Laboratory* Albumin/Creatinine Ratio, Random Urine 07/17/24 Radiology* US OB W/Biophysical Profile 10/25/23 * US OB W/Biophysical Profile 11/08/23 [facility] Evaluation + Plan note Future Appointments Appointment Date:01/08/2025 10:30:00 AM Scheduled Provider:YVON NOE MD Location:[facility] Appointment Type:ENDO OV Appointment Date:03/02/2025 09:30:00 AM Scheduled Provider:GEORGE DE OLIVEIRA MD Location:[facility] Appointment Type: OV Annual Exam Future Scheduled Tests Laboratory* Renin Activity, Plasma 09/04/24 * Cortisol, Urinary Free 09/04/24 * Aldosterone LCMS, Serum 09/04/24 * ACTH, Plasma 09/04/24 * Cortisol Level 09/04/24 * Basic Metabolic Panel 09/04/24 * Thyroid Stimulating Hormone 11/05/24 * Salivary Cortisol,MS 09/04/24 * A1C Hemoglobin 11/05/24 * Aldosterone with Na and K, 24 Hr Ur 09/04/24 * C-Peptide 11/05/24 * Creatinine, 24 Hour Urine 09/04/24 * Insulin Level Total 11/05/24 * Albumin/Creatinine Ratio, Random Urine 01/06/25 * Albumin/Creatinine Ratio, Random Urine 07/17/24 * Vitamin D Level 11/05/24 * Complete Metabolic Panel 11/05/24 [facility] Evaluation noteNo assessment information available [facility] Work Phone: Evaluation note* Diagnosis Onset Date Resolution Status BPPV (benign paroxysmal positional vertigo) acute [facility] Work Phone: Hospital course Narrative No data available for this section [facility] Hospital Discharge instructions No data available for this section [facility] Progress note No data available for this section [facility] Advance Directives No Advanced Directives Records Found Advance Directive Response Recorded Date/ Time Living Will No May 08, 2020 1:36am Power of Pure Pak Machine Operator No May 08 1:36am Advance Directive Response Recorded Date/ Time Living Will No May 17, 2022 1:05pm Power of Pure Pak Machine Operator No May 17 1:05pm Chief Complaint and Reason for Visit Chief Complaint VOMITING/NAUSEA/DIZZ INESS NAUSEA/VOMITING/DIRREHA Reason for Visit BPPV (benign paroxys mal positional vertigo) Summary Purpose Family History No Family History Records Found No data available for this section No data available for this section No data available for this section No data available for this section No data available for this section No data available for this section No data available for this section No data available for this section No data available for this section No Family History Records Found No data available for this section No data available for this section No data available for this section No data available for this section No data available for this section No data available for this section No data available for this section No Family History Records Found No data available for this section No data available for this section No data available for this section No data available for this section No data available for this section No data available for this section No data available for this section No Family History Records Found No data available for this section No Family History Records FoundNo Family History Records Found Additional Source Comments Goals (unrecognized section and content) Goals may be documented in a n alternate section Care Team (unrecognized sect ion and content) Care Team Personnel Name: YANELIS JONES MD Member Role: Primary Care Physician Address: Address: [address] [place] [address] Care Team Related Persons Name: NKECHI CABRALES Address: [place] [address] Name: RICARDO CABRALES Name: BECCA CABRALES Address: [place] [address] Care Team Personnel Name: YANELIS JONES MD Member Role: Primary Care Physician Address: Address: [address] [place] [address] Care Team Related Persons Name: NKECHI CABRALES Address: [place] [address] Name: CABRALES RICARDO Opal Name: BECCA CABRALES Address: [place] [address] Care Team Personnel Name: YANELIS JONES MD Member Role: Primary Care Physician Address: Address: [address] [place] [address] Care Team Related Persons Name: NKECHI CABRALES Address: Home [address] [place] [address] Name: RICARDO CABRALES Name: BECCA CABRALES Address: [place] [address] Care Teams (unrecognized sec tion and content) Team Status: Active Member Role Status Dates Dr. Yanelis Jones MD Family Provider Active Dr. Yanelis Jones MD Primary Care Provider Active Team Status: Inactive Member Role Status Dates Dr. Yanelis Jones MD Primary Care Provider, Referrin g Provider Active NAHID Dos Santos Attending Provider Active Team Status: Active Member Role Status Dates Dr. Yanelis Jones MD Primary Care Provider Active NAHID Dos Santos Attending Provider Active Team Status: Inactive Member Role Status Dates Dr. Yanelis Jones MD Primary Care Provider Active Dr. Jessika Zazueta MD Emergency Provider Active INFORMATION SOURCE (unrecogn ized section and content) DATE CREATED AUTHOR 12/16/2022 [facility] DATE CREATED AUTHOR AUTHOR'S ORGANIZ ATION 11/10/2023 [facility] ([place]) DATE CREATED AUTHOR AUTHOR'S ORGANIZ ATION 02/17/2024 [facility] DATE CREATED AUTHOR AUTHOR'S ORGANIZ ATION 12/21/2024 [facility] DATE CREATED AUTHOR AUTHOR'S ORGANIZ ATION 01/09/2025 [facility] DATE CREATED AUTHOR AUTHOR'S ORGANIZ ATION 01/15/2025 [facility] FOR RECORDS PERTAINING TO PATIENTS WHO ARE [...] BE BASED ON THE PRIMARY CLINICAL RECORDS. [facility] [employer] [facility]. provides no warranty or guarantee of the accuracy or completeness of information in this document.
== END | disposition home or self-care (01) ==
LOC: SL 19:49
PROVIDERS: PCP Internal Medicine; Referring Provider Internal Medicine Endocrinology, Diabetes & Metabolism; Visit Provider Internal Medicine Endocrinology, Diabetes & Metabolism
DX: G47.30 Sleep apnea, unspecified (principal); Z68.42 Body mass index [BMI] 45.0-49.9, adult; E11.9 Type 2 diabetes mellitus without complications
CPT/HCPCS: 95810

== ENCOUNTER 2025-02-17 16:36 | Inpatient (IN) | payer MEDICARE, MEDICAID, SELFPAY ==
[2025-02-17 16:37] VITALS: BP 159/107; PULSE 103; RESP 18; TEMP 35.6; O2SAT 98; BMI 31.7
[2025-02-17 17:18] LABS: Hematocrit 44.5 % (37-47); Hemoglobin 14.4 g/dL (12.0-15.0); Immature Granulocytes Count 0.040 X10^3/uL (0.0-0.0); Mean Corp Hgb Conc 32.4 g/dL (32-36); Mean Corpuscular Volume 80.3 fL (81-99); Mean Platelet Vol. 10.2 fl (6.2-12.0); NRBC Flagged by Analyzer 0 % (0-5); Platelet Count 353 K/mm3 (150-450); RBC Distribution Width CV 13.8 % (11.6-14.6); RBC Distribution Width SD 40.4 fl (35.1-43.9); Red Blood Count 5.54 M/mm3 (4.2-5.4); White Blood Count 10.2 K/mm3 (4.4-11.0)
[2025-02-17 17:55] LABS: AST(SGOT) 241 U/L (<=31); Alanine Aminotransfer ALT/SGPT 280 U/L (<=34); Albumin, Serum 4.1 g/dL (3.5-5.0); Alkaline Phosphatase 299 U/L (35-104); Anion Gap 10 (5-15); BUN 8 mg/dL (4-19); BUN/Creat Ratio 11.1 RATIO (10-20); Calcium,Total 9.4 mg/dL (7.6-11.0); Carbon Dioxide 26.8 mmol/L (21.0-32.0); Chloride 102 mmol/L (98-108); Estimated Creatinine Clearance 112.56 ml/min (50-250); Globulin 3.4 g/dL (2.2-4.2); Glucose 196 mg/dL (70-99); Lipase 54 U/L (13-75); Potassium 4.2 mmol/L (3.3-5.1)
[2025-02-17 18:08] LABS: Internal QC Validated? YES +Cl - CLEAR BKGD; Pregnancy, Serum, hCG Quali. NEGATIVE Negative
--- NOTE | 2025-02-17 19:26 | EX.ED.DYSGE1 ---
HPI History of Present Illness Chief Complaint: Abd Pain [facility] Medical History ADHD Concentration deficit induced hypertension, ESTHER (generalized anxiety disorder) History of depression Earache, left Wears glasses Depression Anxiety Alcohol use Diabetes Fatty liver Back pain Migraine headache Dietary restriction History of ulceration Gastric reflux Non-smoker Shortness of breath on exertion Hypertension Infestation by mites Contact dermatitis Carpal tunnel syndrome Acute otitis media, right Tonsillolith Allergic dermatitis GERD (gastroesophageal reflux disease) Diabetes type 2, controlled High blood pressure BPPV (benign paroxysmal positional vertigo) Pre-eclampsia, Home Medications ?Medication ?Instructions ?Recorded ?Last Taken ?Type blood sugar diagnostic (OneTouch #200 ea 05/31/23 Unknown Rx Verio test strips) pen needle, diabetic 32 gauge x #100 ea 07/12/23 Unknown Rx /32 (BD Ultra-Fine Ivet Pen Needle) arm brace (Wrist Brace) #2 ea 09/12/23 Unknown Rx amlodipine 5 mg tablet 5 mg PO QDAY 03/12/24 02/14/25 History metformin 1,000 mg tablet 1,000 mg PO BID #180 tabs 05/08/24 02/14/25 Rx liraglutide 0.6 mg/0.1 mL (18 mg/3 1.8 mg subcut Q24H 09/02/24 02/14/25 History mL) subcutaneous pen injector ondansetron 4 mg disintegrating 4 mg PO Q8H PRN PRN Nausea #10 tabs 09/10/24 02/14/25 Rx tablet pantoprazole 40 mg tablet,delayed 40 mg PO DAILY #30 tabs 11/06/24 02/14/25 Rx release clonazepam 0.5 mg tablet (Klonopin) 0.5 mg PO DAILY PRN anxiety #15 12/26/24 02/14/25 Rx tabs atomoxetine 80 mg capsule 80 mg PO QDAY #30 caps 01/13/25 02/14/25 Rx buspirone 15 mg tablet 15 mg PO TID #90 tabs 01/13/25 02/14/25 Rx hydrochlorothiazide 25 mg tablet 25 mg PO DAILY 02/17/25 02/14/25 History Allergy/AdvReac Type Severity Reaction Status Date / Time quetiapine fumarate (From Allergy Other Verified 02/17/25 16:37 Seroquel) exenatide (From Bydureon AdvReac Intermediate Swelling Verified 02/17/25 16:37 BCise) Sulfa (Sulfonamide AdvReac Diarrhea Verified 02/17/25 16:37 Antibiotics) Family History Mother Arthritis Anxiety Fibromyalgia Depression Hypertension Grandfather Colon cancer Father Heart disease Hypertension Myocardial infarction Cancer lung/kidney Surgical History History of hysteroscopy History of esophagogastroduodenoscopy (EGD) Social History (Updated 09/10/24 @ 09:[address] 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 pets and animals: Yes Smoking Status: Never smoker Electronic Cigarette Use: not used alcohol intake: current alcohol intake frequency: holidays/special occasions only substance use type: does not use caffeine: Yes (3) Type: carbonated beverages what type of physical activity do you participate in: walking frequency: daily seatbelt use: always do you feel safe at home: Yes EXAM Physical Exam Const Vital Signs: 02/17/25 16:37 02/17/25 20:00 Temperature 96.1 F L Temperature Source Temporal Pulse Rate 103 H 100 Respiratory Rate 18 17 Blood Pressure 159/107 H 171/100 H Blood Pressure Mean 124 123 Pulse Ox 98 99 Oxygen Delivery Method Room Air Room Air MDM MDM MDM Narrative Medical decision making narrative: HISTORY OF PRESENT ILLNESS: Chief complaint: Abdominal pain 40-year-old female history of diabetes, hypertension, anxiety, GERD presents right upper quadrant abdominal pain nausea and vomiting. Notes began 1 week ago. Notes intermittent. Notes is worse with food. She further states she has not had any abdominal surgeries. Does her gallbladder and appendix. Denies chest pain or shortness of breath. Denies urinary complaints. No history of kidney stones. Denies melena, hematochezia or hematemesis. REVIEW OF SYSTEMS: Pertinent positives: Abdominal pain, nausea vomit Pertinent negatives: As per HPI PHYSICAL EXAM: Nursing triage notes reviewed, Vital signs reviewed Constitutional: please see mdm HENT: MMM Eyes: Pupils equal round and reactive to light, Extraocular muscles intact Neck: No stridor, no JVD, full neck ROM Lungs: Clear to auscultation, No wheezing or rales. No increased work of breathing, no conversational dyspnea, no accessory muscle use, no nasal flaring. No respiratory distress noted Heart: Regular rate and rhythm, No murmurs, No rubs and No gallops, 2+ distal pulses (radial, femoral, posterior tibial) in all extremities Abdomen: Soft, TTP over right upper quadrant, positive Daugherty sign, no palpated rigidity, rebound or guarding, no obvious peritoneal signs, no palpable pulsatile abdominal masses, no auscultated abdominal bruit : No CVAT Extremities: No edema Neuro: No new focal neurological deficits, cranial nerves II through XII intact, 5/5 strength in all present extremities. Intact sensation to light touch in all present extremities, 2+ reflexes bilateral patella tendons. Skin: No rash or lesions noted MEDICAL DECISION MAKING: Chief Complaint: please see HPI External records reviewed: Reviewed prior CT scan abdomen pelvis from April 2024 which showed no acute process Factors affecting care: As per HPI Social determinants of health: Denies alcohol or illicit drug History obtained from others: none Consults: General Surgery (Dr. Medrano) -discussed the patient's case. He noted he will evaluate the patient in the ED at approximately 2053 MDM Narrative: The patient was seen approximately 3 hours after initial arrival to the ED secondary to poor department of conditions including high-volume high acuity. Triage orders were placed including CBC, CMP, lipase and serum The patient was initially hemodynamically stable, afebrile and nontoxic-appearing. Exam with right upper quadrant TTP and positive Daugherty sign I considered the following differential diagnosis: AAA, small bowel obstruction, abdominal perforation, appendicitis, pancreatitis, hepatobiliary pathology (acute cholecystitis), mesenteric ischemia, pathology (ie nephrolithiasis, pyelonephritis). I added a right upper quadrant ultrasound given intermittent right-sided pain that is worse with food to further determine if the patient was suffering from a life-threatening etiology. Specifically rule out acute gallbladder pathology I initially treat the patient's pain with 15 mg IV Toradol, 4 mg IV morphine. She did nausea vomiting with 4 mg IV Zofran and 1 L normal saline fluid bolus. ALL IMAGES (IF OBTAINED) HAVE BEEN PERSONALLY REVIEWED AND INTERPRETED BY MYSELF. CBC with no leukocytosis, no anemia or thrombocytopenia BMP without evidence of significant electrolyte abnormalities, no anion gap, no acute kidney injury. LFTs with evidence of hepatobiliary obstruction with elevated bilirubin, AST and alk phos Lipase is wnl indicating no pancreatic inflammation. Serum negative The patient and/or family, caregivers express understanding. The patient and/or family, caregivers agrees with the plan. Shared decision making: I will have a discussion with the patient and or visitors regarding risk/benefits of further testing or admission. They will be made aware of of the risk/benefits inherent in this decision they will be given the opportunity to voice understanding. Total critical care time today provided was at least 0 [] minutes. This excludes separately billable procedures. Critical care time (if documented) is secondary to the patient having high probability of clinically significant/life threatening deterioration in the patient's condition which required my urgent intervention. Impression: 1. Right upper quad abdominal pain 2. Hyperbilirubinemia 3. Elevated liver enzymes 4. Acute cholecystitis Dispo: [] This note was generated with Tripl dictation software. It may contain incorrect words, spelling, and punctuation that were not noted in review of the chart prior to signing. Lab Data Labs: Laboratory Results - last 24 hr 02/17/25 17:06 WBC 10.2 RBC 5.54 H Hgb 14.4 Hct 44.5 MCV 80.3 L MCH 26.0 L MCHC 32.4 RDW Std Deviation 40.4 RDW Coeff of Drake 13.8 Plt Count 353 MPV 10.2 Immature Gran % (Auto) 0.400 Neut % (Auto) 69.0 Lymph % (Auto) 19.8 [place] % (Auto) 6.3 Eos % (Auto) 4.2 Baso % (Auto) 0.3 Absolute Neuts (auto) 7.0 Absolute Lymphs (auto) 2.02 Nucleated RBC % 0 Sodium 138 Potassium 4.2 Chloride 102 Carbon Dioxide 26.8 Anion Gap 10 BUN 8 Creatinine 0.71 Estim Creat Clear Calc 112.56 Est GFR (MDRD) Non-Af 111 BUN/Creatinine Ratio 11.1 Glucose 196 H Calcium 9.4 Total Bilirubin 1.41 H AST 241 H ALT 280 H Alkaline Phosphatase 299 H Total Protein 7.6 Albumin 4.1 Globulin 3.4 Albumin/Globulin Ratio 1.2 Lipase 54 Serum , Qual NEGATIVE Radiography Diagnostic Testing: Clinical Impression(s) from Imaging Studies Gallbladder Ultrasound 02/17/25 19:41 IMPRESSION: Acute cholecystitis with multiple gallstones, mild gallbladder wall thickening, and positive Daugherty's sign. Hepatomegaly and hepatic steatosis. Reading Location: [facility] Discharge Plan Triage Chief Complaint: Abd Pain ED Provider: Rui Herron Dx/Rx/DC Orders Prescriptions: No Action (DME) Wrist Brace Misc See Rx Instructions .Route Qty: 2 0RF Rx Instructions: As directed amlodipine 5 mg tablet 5 mg PO QDAY ondansetron 4 mg tablet,disintegrating 4 mg PO Q8H PRN PRN (Reason: Nausea) Qty: 10 0RF liraglutide 0.6 mg/0.1 mL (18 mg/3 mL) pen injector 1.8 mg subcut Q24H Patient Comments: [NO ORIGINAL SIG] atomoxetine 80 mg capsule 80 mg PO QDAY Qty: 30 2RF buspirone 15 mg tablet 15 mg PO TID Qty: 90 2RF hydrochlorothiazide 25 mg tablet 25 mg PO DAILY (DME) OneTouch Verio test strips Strip See Rx Instructions .Route Qty: 200 5RF Rx Instructions: 5x/day (DME) pen needle, diabetic [BD Ultra-Fine Ivet Pen Needle] 32 gauge x 5/32 needle See Rx Instructions .Route Qty: 100 5RF Rx Instructions: daily metformin 1,000 mg tablet 1,000 mg PO BID Qty: 180 1RF pantoprazole 40 mg tablet,delayed release (DR/EC) 40 mg PO DAILY Qty: 30 5RF clonazepam [Klonopin] 0.5 mg tablet 0.5 mg PO DAILY PRN (Reason: anxiety) Qty: 15 1RF Primary Care Provider: Cindy Acosta Referrals: Cindy Acosta MD [Primary Care Provider, Internal Medicine] Print Language: Spanish
--- NOTE | 2025-02-17 19:41 | US_ITS ---
PROCEDURE: GALLBLADDER 02/17/2025 REASON FOR EXAM: RUQ TTP TECHNIQUE: Procedure Code: USGB Modality: US Procedure: GALLBLADDER COMPARISON: CT from 04/14/2024 FINDINGS: GALLBLADDER: Multiple gallstones. There is gallbladder sludge. Mild thickening gallbladder wall measuring up to 4.2 mm. No pericholecystic fluid. Positive Daugherty sign. COMMON BILE DUCT: Measures 8 mm. No intrahepatic biliary dilatation. LIVER: Hepatomegaly to 17.4 cm. Increased echotexture. No definite hepatic mass. RIGHT KIDNEY: Normal in size and echogenicity. No mass. No urinary stones. No hydronephrosis. Pancreas: Within normal limits. US/Gallbladder IMPRESSION: Acute cholecystitis with multiple gallstones, mild gallbladder wall thickening, and positive Daugherty's sign. Hepatomegaly and hepatic steatosis. Reading Location: [id number]
[2025-02-17 20:00] VITALS: BP 171/100; PULSE 100; RESP 17; O2SAT 99
[2025-02-17 21:00] LABS: Mucous, Urine 0 SEEN /hpf (<or=2+); Red Blood Cells-Urine 0 SEEN /hpf (0-5)
[2025-02-17] MEDS: Piperacil/Tazobactam 4.5 GM in 0.9% Normal Saline (100mL MB+) 100 ML IV (21:19)
[2025-02-17 21:29] LABS: Color, Urine Amber (Yellow); Glucose, Dipstick Normal (Normal); Ketone-Dipstick Negative (Negative); Leukocyte Esterase-Dipstick 25 /ul (Negative); Nitrite-Dipstick Negative (Negative); Occult Blood-Urine Negative /ul (Negative); Protein-Dipstick 30 mg/dl (Negative); Specific Gravity, Urine 1.010 (1.002-1.030); Urine Bilirubin Dipstick Negative (Negative)
[2025-02-17 21:40] VITALS: BP 149/92; PULSE 66; PULSE 68; RESP 18; TEMP 36.8; O2SAT 99
--- NOTE | 2025-02-17 21:40 | CON.PCM.SX_ITS ---
Assessment & Plan Assessment/Plan (1) Acute cholecystitis: PLAN: Patient 40-year-old female who presents with 1 week of progressive right upper quadrant abdominal discomfort and a postprandial onset. History and further workup by the ED are consistent with diagnosis of acute cholecystitis. Additionally, patient has elevation of both her LFTs and bilirubin while exhibiting mild dilatation of her common bile duct. Collectively this is concerning for concurrent diagnosis of choledocholithiasis. Hand drawings were used to illustrate the anatomy of the gallbladder as well as the biliary duct work and its relationship to the liver and the small bowel. I went on to recommend laparoscopic cholecystectomy with intraoperative cholangiography. I stated that if cholangiography finds evidence of a common bile duct obstruction then we would seek consultation with gastroenterology for possible ERCP. Patient confirmed understanding this information. She was instructed to remain n.p.o. past midnight. For the interim patient was empirically administered Zosyn by emergency medicine and this should be continued through patient's treatment. Hospitalist service to admit; appreciate their involvement. Nursing swimming pool maintenance supervisor notified of intent to proceed with surgery tomorrow. Dave Medrano MD General Surgery Endocrine Surgery Pager: [facility] [address] [place] [address], [address] [place] [address] Office: [phone] HPI Consult Data Date of Consult: 02/17/25 HPI Narrative Reason for Consultation: Acute onset abdominal pain with postprandial onset HPI Narrative: DORY HENDERSON, is a 40 F who presents to [facility] with complaints of acute onset abdominal discomfort that has been progressive in nature and postprandial in onset. She estimates for the last 1 week she has experienced crescendoing right upper quadrant discomfort with associated nausea and vomiting. She states the pain has become so intense she has found herself curled in the position. She has experienced some chills but has no recorded fever. She denies any sick contacts at home. She denies any yellowing of her eyes but she does note some ongoing diarrhea. Outside of the above acute issues, patient states that she has been successful with some weight loss. She estimates weight loss of approximately 30 pounds over the last couple of months which she attributes to starting a new diabetes medication. ED workup is notable for vitals showing some hypertension with BP of 171/100 mmHg last checked. Laboratories remarkable for elevated LFTs and hyperbilirubinemia at 1.4. Ultrasound imaging of the gallbladder was performed given patient's presentation and read by radiology as consistent with acute cholecystitis finding and gallbladder wall thickening at 4.2 mm. Radiology noted a common bile duct diameter of 8 mm. Patient is known to me for a history of EGD together in December 2022. Besides this procedure she has undergone hysteroscopy and salpingectomy. FORMERLY [facility], [facility] Medical History ADHD Concentration deficit induced hypertension, ESTHER (generalized anxiety disorder) History of depression Earache, left Wears glasses Depression Anxiety Alcohol use Diabetes Fatty liver Back pain Migraine headache Dietary restriction History of ulceration Gastric reflux Non-smoker Shortness of breath on exertion Hypertension Infestation by mites Contact dermatitis Carpal tunnel syndrome Acute otitis media, right Tonsillolith Allergic dermatitis GERD (gastroesophageal reflux disease) Diabetes type 2, controlled High blood pressure BPPV (benign paroxysmal positional vertigo) Pre-eclampsia, Home Medications ?Medication ?Instructions ?Recorded ?Last Taken ?Type blood sugar diagnostic (OneTouch #200 ea 05/31/23 Unkn own Rx Verio test strips) pen needle, diabetic 32 gauge x #100 ea 07/12/23 Unkno wn Rx 5/32 (BD Ultra-Fine Ivet Pen Needle) arm brace (Wrist Brace) #2 ea 09/12/23 Unknown Rx amlodipine 5 mg tablet 5 mg PO QDAY 03/12/24 History metformin 1,000 mg tablet 1,000 mg PO BID #180 tabs 02/14/25 Rx liraglutide 0.6 mg/0.1 mL (18 mg/3 1.8 mg subcut Q24H 09/02/24 02/14/25 History mL) subcutaneous pen injector ondansetron 4 mg disintegrating 4 mg PO Q8H PRN PRN Na usea #10 tabs 09/10/24 02/14/25 Rx tablet pantoprazole 40 mg tablet,delayed 40 mg PO DAILY #30 t abs 11/06/24 02/14/25 Rx release clonazepam 0.5 mg tablet (Klonopin) 0.5 mg PO DAILY RI N anxiety #15 12/26/24 02/14/25 Rx tabs atomoxetine 80 mg capsule 80 mg PO QDAY #30 caps 11/11 /25 12/13/25 Rx buspirone 15 mg tablet 15 mg PO TID #90 tabs 02/14/25 Rx hydrochlorothiazide 25 mg tablet 25 mg PO DAILY 02/14/25 History Allergy/AdvReac Type Severity Reaction Status Date / Time quetiapine fumarate (From Allergy Other Verified 02/17/25 16:37 Seroquel) exenatide (From Bydureon AdvReac Intermediate Swelling Verified 02/17/25 16:37 BCise) Sulfa (Sulfonamide AdvReac Diarrhea Verified 02/17/25 16:37 Antibiotics) Family History Mother Arthritis Anxiety Fibromyalgia Depression Hypertension Grandfather Colon cancer Father Heart disease Hypertension Myocardial infarction Cancer lung/kidney Surgical History History of hysteroscopy History of esophagogastroduodenoscopy (EGD) Social History (Updated 09/10/24 @ 09:[address] 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 pets and animals: Yes Smoking Status: Never smoker Electronic Cigarette Use: not used alcohol intake: current alcohol intake frequency: holidays/special occasions only substance use type: does not use caffeine: Yes (3) Type: carbonated beverages what type of physical activity do you participate in: walking frequency: daily seatbelt use: always do you feel safe at home: Yes Physical Exam Const alert and oriented x3 General Appearance: cooperative Nutritional Appearance: obese Eyes Eyes Narrative: No scleral icterus GI GI Narrative: No scars, nondistended, soft, markedly tender to palpation right upper quadrant with positive Daugherty sign. Lab / Micro Data 02/17/25 17:06 02/17/25 17:06 Labs: Laboratory Results - last 24 hr 02/17/25 17:06: WBC 10.2, RBC 5.54 H, Hgb 14.4, Hct 44.5, MCV 80.3 L, MCH 26.0 L , MCHC 32.4, RDW Std Deviation 40.4, RDW Coeff of Drake 13.8, Plt Count 353, MPV 10.2, Immature Gran % (Auto) 0.400, Neut % (Auto) 69.0, Lymph % (Auto) 19.8, [place] % (Auto) 6.3, Eos % (Auto) 4.2, Baso % (Auto) 0.3, Absolute Neuts (auto) 7.0, Absolute Lymphs (auto) 2.02, Nucleated RBC % 0, Sodium 138, Potassium 4.2, Chloride 102, Carbon Dioxide 26.8, Anion Gap 10, BUN 8, Creatinine 0.71, Estim Creat Clear Calc 112.56, Est GFR (MDRD) Non-Af 111, BUN/Creatinine Ratio 11.1, G lucose 196 H, Calcium 9.4, Total Bilirubin 1.41 H, AST 241 H, ALT 280 H, A lkaline Phosphatase 299 H, Total Protein 7.6, Albumin 4.1, Globulin 3.4, Albumin/Globulin Ratio 1.2, Lipase 54, Serum , Qual NEGATIVE 02/17/25 20:55: Urine Color Valeria, Urine Clarity Clear, Urine pH 6.0, Ur Specific [place] 1.010, Urine Protein 30 H, Urine Glucose (UA) Normal, Urine Ketones Negative, Urine Occult Blood Negative, Urine Nitrite Negative, Urine Bilirubin Negative, Urine Urobilinogen 1 H, Ur Leukocyte Esterase 25 H Imaging Radiology Impression Gallbladder Ultrasound 02/17/25 19:41 IMPRESSION: Acute cholecystitis with multiple gallstones, mild gallbladder wall thickening, and positive Daugherty's sign. Hepatomegaly and hepatic steatosis. Reading Location: [id number] Charges/Coding Visit Charges Inpatient E&M: 50041 Init Hosp L2
[2025-02-17 21:48] LABS: Squamous Epithelial Cells - UA 0-5 SEEN /hpf (5-10)
--- OUTSIDE RECORDS SUMMARY | 2025-02-17 21:55 | XMS RPT_ITS | CCD ---
Author Organization [facility] Care Team Providers Care Client Executive Name Role Phone DR YANELSI JONES MD Primary Care Physician [phone] Dr. Yanelis Jones Primary Care Provider Lizandro WHITFIELD, NAHID Vasquez Attending Provider Dr. Yanelis Jones Referring Provider [phone] DR YANELIS JONES MD Primary Care Physician BROOKS ACOSTA MD Primary Care Physician GEORGE [...] Unavailable BROOKS ACOSTA MD Primary Care [facility] Attending Unavailable BROOKS ACOSTA MD Primary Care Unavailable RAGTED, YVON Attending Unavailable BROOKS ACOSTA MD Primary Care Unavailable [facility] Attending Unavailable BROOKS ACOSAT MD Primary Care Unavailable [facility] Attending Unavailable BROOKS ACOSTA MD Primary Care Unavailable GEORGE DE OLIVEIRA MD Attending Unavailable BROOKS ACOSTA MD Primary Care Unavailable GEORGE DE OLIVEIRA MD Attending Unavailable BROOKS ACOSTA MD Primary Care Unavailable GEORGE DE OLIVEIRA MD Attending Unavailable Dave, Brooks Primary Care Unavailable Jessika Courtney Attending Unavailable Paxton, Brooks Primary Care Unavailable Sharad Santiago Attending Unavailable Florentino Farooq Attending Unavailable Paxton, Brooks Primary Care Unavailable Paxton, Brooks Referring Unavailable Dave, Brooks Referring Unavailable Dave, Brooks Attending Unavailable Paxton, Brooks Primary Care Unavailable Sharad Santiago Attending Unavailable Dave, Brooks Primary Care Unavailable Dave, Brooks Referring Unavailable Dave, Brooks Primary Care Unavailable Paxton, Brooks Attending Unavailable Florentino Farooq Attending Unavailable Paxton, Brooks Referring Unavailable Paxton, Brooks Primary Care Unavailable Paxton, Brooks Referring Unavailable Paxton, Brooks Attending Unavailable Paxton, Brooks Primary Care Unavailable Chay Ag Attending Unavailable Dave, Brooks Primary Care Unavailable Dave, Brooks Primary Care Unavailable Jessika Courtney Attending Unavailable Paxton, Brooks Primary Care Unavailable Jessika Courtney Attending Unavailable Paxton, Brooks Primary Care Unavailable Sharad Santiago Attending Unavailable Sharad Santiago Attending Unavailable Dave, Brooks Primary Care Unavailable Jessika Courtney Attending Unavailable Dave, Brooks Primary Care Unavailable Jessika Courtney Attending Unavailable Paxton, Brooks Primary Care Unavailable Sharad Santiago Attending Unavailable Dave, Brooks Referring Unavailable Dave, Brooks Primary Care Unavailable Sriram Chen Attending Unavailable Paxton, Brooks Primary Care Unavailable Adarsh Wilkins Attending Unavailable Paxton, Brooks Primary Care Unavailable Jessika Courtney Attending Unavailable Dave, Brooks Primary Care Unavailable Jessika Courtney Attending Unavailable Dave, Brooks Primary Care Unavailable Jessika Courtney Attending Unavailable Paxton, Brooks Primary Care Unavailable Sharad Santiago Attending Unavailable Paxton, Brooks Referring Unavailable Florentino Farooq Attending Unavailable Paxton, Brooks Primary Care Unavailable Paxton, Brooks Primary Care Unavailable Jessika Courtney Attending Unavailable Dave, Brooks Primary Care Unavailable Sharad Santiago Attending Unavailable Dave, Brooks Referring Unavailable Paxton, Brooks Primary Care Unavailable Dave, Brooks Attending Unavailable Allergies Allergy Classification Reported Allergen(s) Allergy Type Date of Onset Reaction(s) Facility exenatide (1 source) exenatide; Translations: [exenatide] Drug Allergy swelling and redness [facility] QUEtiapine (1 source) QUEtiapine; Translations: [quetiapine] Drug Allergy [facility] Sulfonamides (antibiotic) (1 source) Sulfonamide; Translations: [sulfa drugs] Drug Allergy [facility] (20 sources) QUEtiapine; Translations: [quetiapine] Drug Allergy 0 [facility] (20 sources) Sulfonamides (Antibiotic); Translations: [sulfa drugs] Drug allergy [facility] (3 sources) QUEtiapine; Translations: [quetiapine fumarate] Drug Allergy 1 Other [facility] (2 sources) Sulfonamides (Antibiotic) Propensity to adverse reactions 1 Diarrhea [facility] (20 sources) exenatide; Translations: [exenatide] Drug Allergy swelling and redness [facility] (1 source) Sulfonamides (Antibiotic); Translations: [SULFA ANTIBIOTICS] Propensity to adverse reactions to drug (disorder) 0 [facility] (1 source) exenatide Drug Allergy 5 [facility] Repository (1 source) Sulfonamides (Antibiotic) Drug allergy (disorder) 5 [facility] Repository Medications Current Medications Medication Drug [...] by mouth every four hours as needed Llzrhrxymw-Omtnfyaogevxj-Kfkm Active 1 - 2 TABLET PO EVERY [...] 30 tab(s), 5 Refill(s), Pharmacy: [facility] 074, 162.6, cm, 11/06/24 11:35:00 EDT, Height, kg, 11/06/24 11:35:00 EDT, Dosing Weight Start Date: 12/26/24 Status: Ordered Medication Dispense Status: Completed Quantity: 30.0 Unit: tab(s) Total Allowed Fills: 1 Fills Dispensed: 0 Start: 01-28-2024 End: 07-26-2024 amLODIPine 5 mg oral tablet Dose : 5 mg = 1 tab(s), Oral, qDay, # 30 tab(s), 5 Refill(s), Pharmacy: [place] [id number], 162.6, cm, 01/28/24 9:39:00 EST, Height, kg, 01/28/24 9:39:00 EST, Dosing Weight Start Date: 01/28/24 Stop Date: 07/26/24 Status: Ordered Quantity: 30.0 Unit: tab(s) Repeat number: 6 Start: 09-27-2023 End: 01-25-2024 amLODIPine 5 mg oral tablet Dose : 5 mg = 1 tab(s), Oral, qDay, # 60 tab(s), 1 Refill(s), Pharmacy: [place] [id number], 162.6, cm, 09/27/23 9:48:00 EDT, Height, kg, 09/23/23 13:59:00 EDT, Dosing Weight Start Date: 09/27/23 Stop Date: 01/25/24 Status: Ordered Start: 02-22-2023 End: 09-20-2023 take 1 tablet by mouth once daily amLODIPine 2.5 mg oral tablet 1 tab(s), Oral, qDay, # 30 tab(s), 0 Refill(s), Pharmacy: [place] [id number], 162, cm, 08/06/23 9:01:00 EDT, Height, kg, [...] qHS, # 1 tab(s), 0 Refill(s), Pharmacy: [facility] 074, 162.6, cm, 07/17/24 9:06:00 [...] food., # 60 tab(s), 1 Refill(s), Pharmacy: [facility]74, 162.6, cm, 12/06/23 10:13:00 EDT, Height, kg, 12/06/23 10:13:00 EDT, Dosing Weight Start Date: 12/08/23 Status: Ordered Start: 04-13-2021 ferrous sulfat e 325 mg (65 mg elemental iron) oral tablet Dose : 325 mg = 1 tab(s), Oral, BID, # 60 tab(s), 1 Refill(s), Pharmacy: [facility] [address], 162.6, cm, 04/11/21 9:07:00 EST, Height, [...] 30 tab(s), 3 Refill(s), Pharmacy: [facility] 074, 162.6, cm, 07/17/24 9:06:00 EDT, Height, [...] # 30 tab(s), 6 Refill(s), [facility], cm, 06/17/20 11:24:00 EDT, Height, [...] 12/18/23 9:08:00 AM EDT, Pharmacy: [facility] 074, 162.6, cm, 12/06/23 10:13:00 EDT, Height, [...] qDay, # 27 mL, 3 Refill(s), Pharmacy: [facility]74, 162.6, cm, 09/04/24 14:51:00 [...] qDay, # 6 mL, 0 Refill(s), Pharmacy: [facility]74, 162.6, cm, 07/31/24 10:51:00 [...] Refill(s), 12/17/20 10:12:00 EDT, Pharmacy: [facility] [address], 154, cm, 10/18/20 8:35:00 EDT, Height, [...] 30 tab(s), 2 Refill(s), Pharmacy: [facility] [address], 162, cm, 02/17/21 9:53:00 EST, Height, [...] 6 HOURS May 17, 2022 12:00am sennosides, prison 8.6 mg oral tablet (1 source) Start: 12-08-2023 senna (sennosi júnior) 8.6 mg oral tablet Dose : 8.6 mg = 1 tab(s), Oral, qHS, # 20 tab(s), 0 Refill(s), Pharmacy: [facility]74, 162.6, cm, 12/06/23 10:13:00 [...] qWeek, # 12 cap(s), 0 Refill(s), Pharmacy: [facility]74, 162.6, cm, 07/31/24 10:51:00 EDT, Height, kg, 07/31/24 10:51:00 EDT, Dosing Weight Start Date: 07/31/24 Status: Ordered Medication Dispense Status: Completed Quantity: 12.0 Unit: cap(s) Total Allowed Fills: 1 Fills Dispensed: 0 Start: 07-31-2024 Vitamin D3 125 0 mcg (50,000 intl units) oral capsule Dose : 1,250 mcg = 1 cap(s), Oral, qWeek, # 12 cap(s), 0 Refill(s), Pharmacy: [place] [id number], 162.6, cm, 07/31/24 10:51:00 EDT, Height, kg, [...] # 30 tab(s), 6 Refill(s), [facility]acy: [facility] [address], 162.6, cm, 04/11/21 9:07:00 EST, Height, [...] 1 Refill(s), 03/25/21 9:22:00 EST, Pharmacy: [facility] [address], 162, cm, 01/24/21 9:01:00 EST, [...] Comment on above: [facility] Status documented as Yes on Admission 6wk [...] Comment on above: [facility]. Breast feeding Status documented as Yes on [...] Interpretation Reference Range Facility MR/BMS.BPon 01-13-2025 MR/BMS.BP [facility] [address] [facility] [facility], [address] [place] [address] OFFICE VISIT Date of Service: 01/13/25 MR#: [id number] Acct: [id number] Name: DORY HENDERSON Rep #: [id number] : 1985 Provider: Dr. Sharad Dumont se, DO Age/Sex: 39/F Location: [facility]BP Status: Signed Intake Vital Signs 11/11/24 10:04 [...] (Updated 09/10/24 @ 09:[address] Brooks Acotsa MD) adopted: No household members: spouse and [...] smoking m (more content not included)... Normal [facility] .Auto Diffon 01-07-2025 Basophil, Absolute 0.1 10 3/mcL Normal 0.0-0.3 [facility] Comment on above: Performed By: #### N GPCR1, CTPCR #### [address] [address] Basophils/100 WBC (Bld) 0.5 % Normal 0.0-2.5 [facility] Comment on above: Performed By: #### N GPCR1, CTPCR #### [address] [address] Eosinophil, Absolute 0.2 10 3/mcL Normal 0.0-0.7 [facility] Comment on above: Performed By: #### N GPCR1, CTPCR #### [facility] [address] [place] [address] Eosinophils/100 WBC (Bld) 2.0 % Normal 0.0-6.0 [facility] Comment on above: Performed By: #### N GPCR1, CTPCR #### [facility] [address] [place] [address] Lymphocyte, Absolute 1.9 10 3/mcL Normal 0.9-4.3 [facility] Comment on above: Performed By: #### N GPCR1, CTPCR #### [facility] [address] [place] [address] Lymphocytes/100 WBC (Bld) 18.6 % Low 20.0-40.0 [facility] Comment on above: Performed By: #### N GPCR1, CTPCR #### [facility] [address] [place] [address] Monocyte, Absolute 0.6 10 3/mcL Normal 0.1-1.4 [facility] Comment on above: Performed By: #### N GPCR1, CTPCR #### [address] [address] Monocytes/100 WBC (Bld) 5.6 % Normal 2.0-13.0 [facility] Comment on above: Performed By: #### N GPCR1, CTPCR #### [address] [address] Neutrophils/100 WBC (Bld) 73.3 % Normal 50.0-75.0 [facility] Comment on above: Performed By: #### N GPCR1, CTPCR #### [address] [address] .GFRon 01-07-2025 Estimated Glomerular Filtration Rate 96 ml/min/1.73sqm Normal [facility] Comment on above: Result Comment: Stages [...] Performed By: #### N GPCR1, CTPCR #### [address] [address] .NEUABSon 01-07-2025 Neutrophil, Absolute 7.5 10 3/mcL Normal 2.3-8.1 [facility] Comment on above: Performed By: #### N GPCR1, CTPCR #### [address] [address] CBCon 01-07-2025 Erythrocyte distribution width (RBC) [Ratio] 14.3 % Normal 11.5-15.5 [facility] Comment on above: Performed By: #### N GPCR1, CTPCR #### [place] [address] Hematocrit (Bld) [Volume fraction] 41.6 % Normal 34.0-46.0 [facility] Comment on above: Performed By: #### N GPCR1, CTPCR #### [place] [address] Hgb 13.9 G/dL Normal 12.0-16.0 [facility] Comment on above: Performed By: #### N GPCR1, CTPCR #### [place] [address] MCH (RBC) [Entitic mass] 26.7 pg Low 27.0-33.0 [facility] Comment on above: Performed By: #### N GPCR1, CTPCR #### [place] [address] MCHC 33.5 G/dL Normal 32.0-36.0 [facility] Comment on above: Performed By: #### N GPCR1, CTPCR #### [place] [address] MCV (RBC) [Entitic vol] 79.5 fL Low 80.0-99.0 [facility] Comment on above: Performed By: #### N GPCR1, CTPCR #### [place] [id number] Platelet 310 10 3/mcL Normal 150-450 [facility] Comment on above: Performed By: #### N GPCR1, CTPCR #### [place] [address] Platelet mean volume (Bld) [Entitic vol] 8.1 fL Normal 6.6-10.5 [facility] Comment on above: Performed By: #### N GPCR1, CTPCR #### [address] [address] RBC 5.23 10 6/mcL Normal 4.10-5.30 [facility] Comment on above: Performed By: #### N GPCR1, CTPCR #### [address] [address] WBC 10.3 10 3/mcL Normal 4.5-10.8 [facility] Comment on above: Performed By: #### N GPCR1, CTPCR #### [place] [address] CMPon 01-07-2025 Albumin Level 3.5 G/dL Normal 3.5-5.0 [facility] Comment on above: Performed By: #### N GPCR1, CTPCR #### [place] [address] Albumin/Globulin [Mass ratio] 0.9 {ratio} Low 1.1-2.5 [facility] Comment on above: Performed By: #### N GPCR1, CTPCR #### [address] [address] ALP [Catalytic activity/Vol] 107 U/L Normal 40-135 [facility] Comment on above: Performed By: #### N GPCR1, CTPCR #### [place] [address] ALT [Catalytic activity/Vol] 65 U/L High 14-59 [facility] Comment on above: Performed By: #### N GPCR1, CTPCR #### [address] [address] AST [Catalytic activity/Vol] 43 U/L High 10-40 [facility] Comment on above: Performed By: #### N GPCR1, CTPCR #### [place] [address] Bili Total 0.7 mg/dL Normal 0.2-1.0 [facility] Comment on above: Result Comment: Use of this assay is not recommended for patients undergoing treatment with eltrombopag due to the potential for falsely elevated results. Performed By: #### N GPCR1, CTPCR #### [place] [address] BUN/Creatinine Ratio 15 ratio Normal 7-27 [facility] Comment on above: Performed By: #### N GPCR1, CTPCR #### [place] [address] Calcium [Mass/Vol] 9.1 mg/dL Normal 8.4-10.2 [facility] Comment on above: Performed By: #### N GPCR1, CTPCR #### [place] [address] Chloride [Moles/Vol] 97 mmol/L Low 98-107 [facility] Comment on above: Performed By: #### N GPCR1, CTPCR #### [place] [address] CO2 [Moles/Vol] 33 mmol/L High 22-29 [facility] Comment on above: Performed By: #### N GPCR1, CTPCR #### [place] [address] Creatinine [Mass/Vol] 0.81 mg/dL Normal 0.51-0.95 [facility] Comment on above: Performed By: #### N GPCR1, CTPCR #### [place] [address] Electrolyte Balance 6.0 mEq/L Normal 4.0-15.0 [facility] Comment on above: Performed By: #### N GPCR1, CTPCR #### [place] [id number] Globulin 4.1 G/dL Normal 2.7-4.4 [facility] Comment on above: Performed By: #### N GPCR1, CTPCR #### [place] [address] Glucose [Mass/Vol] 132 mg/dL High 70-105 [facility] Comment on above: Performed By: #### N GPCR1, CTPCR #### [facility] [address] [place] [address] Potassium [Moles/Vol] 3.8 mmol/L Normal 3.5-5.1 [facility] Comment on above: Performed By: #### N GPCR1, CTPCR #### [facility] [address] [place] [address] Sodium [Moles/Vol] 136 mmol/L Normal 136-145 [facility] Comment on above: Performed By: #### N GPCR1, CTPCR #### [address] [address] Total Protein 7.6 G/dL Normal 6.4-8.2 [facility] Comment on above: Performed By: #### N GPCR1, CTPCR #### [address] [address] Urea nitrogen [Mass/Vol] 12 mg/dL Normal 7-18 [facility] Comment on above: Performed By: #### N GPCR1, CTPCR #### [address] [address] LABORATORYOrdered By: SYSTEM SYSTEM on 01-07-2025 25-hydroxyvitamin [...] 01-07-2025 Cholesterol [Mass/Vol] 202 mg/dL High 0-200 [facility] Comment on above: Result Comment: Chol esterol Reference Interval: Less than 200 Desirable 200-239 Borderline high risk 240 and above High risk Performed By: #### N GPCR1, CTPCR #### [address] [address] Cholesterol in HDL [Mass/Vol] 43 mg/dL Normal 40-60 [facility] Comment on above: Performed By: #### N GPCR1, CTPCR #### [address] [address] Cholesterol in LDL [Mass/Vol] 138 mg/dL High 0-130 [facility] Comment on above: Performed By: #### N GPCR1, CTPCR #### [address] [address] Triglyceride [Mass/Vol] 104 mg/dL Normal 0-150 [facility] Comment on above: Result Comment: Trig lyceride Reference Interval: Less than 150 Normal 150-199 Borderline high risk 200-499 High risk 500 or higher Very high risk Performed By: #### N GPCR1, CTPCR #### [place] [address] TSHon 01-07-2025 TSH Qn 1.30 m[IU]/L Normal 0.36-3.74 [facility] Comment on above: Performed By: #### N GPCR1, CTPCR #### [place] [address] VIDHon 01-07-2025 Vit. D 25-Hydroxy 36.1 ng/mL Normal [facility] Comment on above: Result Comment: Inte rpretive Values Based on Total 25(OH) Vitamin D: Deficient <20 ng/mL Insufficient 20 - <30 ng/mL Sufficient 30-100 ng/mL Performed By: #### N GPCR1, CTPCR #### [place] [address] MR/BMS.BPon 01-05-2025 MR/BMS.BP [address], [address] [place] [address] OFFICE VISIT Date of Service: 01/05/25 MR#: [id number] Acct: [id number] Name: DORY HENDERSON Rep #: [id number] : 1985 [facility] Age/Sex: 39/F Location: [facility] Status: Signed Intake Vital Signs 07/18/24 10:38 [...] DBT, and (more content not included)... Normal [facility] MR/[facility]MS.[facility] 12-22-2024 MR/BMS.[address], [address] [place] [address] OFFICE VISIT Date of Service: 12/22/24 MR#: [id number] Acct: [id number] Name: DORY HENDERSON Rep #: [id number] : 1985 [facility] Age/Sex: 39/F Location: [facility] Status: Signed Intake Vital Signs 07/18/24 10:38 11/20/24 11:18 12/22/24 12:47 Height 5 ft 4 in 5 ft 4 in 5 ft 4 in BP Intake Visit Reasons: f/u Allergies quetiapine fumarate (From Seroquel) Allergy (Verified 11/11/24 10:12) Other exenatide (From Bydureon BCise) Adverse Reaction (Intermediate, Verified 11/11/24 10:12) Swelling Sulfa (Sulfonamide Antibiotics) Adverse Reaction (Verified 11/11/24 10:12) [facility] ADHD Concentration deficit induced hypertension, [...] partial cliff (more content not included)... Normal [facility] MR/BMS.BPon 12-08-2024 MR/BMS.BP [facility] [address] [place] [address], [address] [place] [address] OFFICE VISIT Date of Service: 12/08/24 MR#: [id number] Acct: [id number] Name: DORY HENDERSON Rep #: [id number] : 1985 Provider: [facility] Jessika vinson Age/Sex: 39/F Location: [facility] Status: Signed Intake Vital Signs 07/18/24 10:38 11/20/24 11:18 12/08/24 12:19 Height 5 ft 4 in 5 ft 4 in 5 ft 4 in BP Intake Visit Reasons: f/u Allergies quetiapine fumarate (From Seroquel) Allergy (Verified 11/11/24 10:12) Other exenatide (From Bydureon BCise) Adverse Reaction (Intermediate, Verified 11/11/24 10:12) Swelling Sulfa (Sulfonamide Antibiotics) Adverse Reaction (Verified 11/11/24 10:12) Diarrhea [facility] Medical History ADHD Concentration deficit induced hypertension, [...] experiencing suicidal (more content not included)... Normal [facility] MR/BMS.BPon 11-20-2024 MR/BMS.BP [facility] [address] [facility] [facility], [address] [place] [address] OFFICE VISIT Date of Service: 11/18/24 MR#: [id number] Acct: [id number] Name: DORY HENDERSON Rep #: [id number] : 1985 Provider: [facility] Jessika vinson Age/Sex: 39/F Location: [facility] Status: Signed Intake Vital Signs 07/18/24 10:38 11/11/24 16:30 11/20/24 11:18 Height 5 ft 4 in 5 ft 4 in 5 ft 4 in BP Intake Visit Reasons: f/u Allergies quetiapine fumarate (From Seroquel) Allergy (Verified 11/11/24 10:12) Other exenatide (From Bydureon BCise) Adverse Reaction (Intermediate, Verified 11/11/24 10:12) Swelling Sulfa (Sulfonamide Antibiotics) Adverse Reaction (Verified 11/11/24 10:12) Diarrhea [facility] Medical History ADHD Concentration deficit induced hypertension, [...] address though (more content not included)... Normal [facility] MR/BMS.BPon 11-11-2024 MR/BMS.BP [address], [address] [place] [address] OFFICE VISIT Date of Service: 11/11/24 MR#: [id number] Acct: [id number] Name: DORY HENDERSON Rep #: [id number] : 1985 Provider: [facility] Jessika vinson Age/Sex: 39/F Location: [facility] Status: Signed Intake Vital Signs 09/10/24 08:59 11/11/24 10:04 11/11/24 16:30 Height 5 ft 4 in 5 ft 4 in 5 ft 4 in BP Intake Visit Reasons: Follow up Allergies quetiapine fumarate (From Seroquel) Allergy (Verified 11/11/24 10:12) Other exenatide (From Bydureon BCise) Adverse Reaction (Intermediate, Verified 11/11/24 10:12) Swelling Sulfa (Sulfonamide Antibiotics) Adverse Reaction (Verified 11/11/24 10:12) Diarrhea [facility] Medical History ADHD Concentration deficit induced hypertension, [...] Pt. to (more content not included)... Normal [facility] MR/BMS.BP [facility] [address] [facility] [facility], [address] [place] [address] OFFICE VISIT Date of Service: 11/11/24 MR#: [id number] Acct: [id number] Name: DORY HENDERSON Rep #: [id number] : 1985 Provider: Dr. Sharad Dumont se, DO Age/Sex: 39/F Location: [facility] Status: Signed Intake Vital Signs 09/10/24 08:59 [...] even w (more content not included)... 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 Normal [facility] Inital Evaluation (1) - PTon 09-15-2024 Inital Evaluation (1) - PT [facility] Physical Therapy [facility] [address] [place] [address] / REHABILITATION SERVICES INITIAL EVALUATION MR#: [id number] Acct: [id number] Name: DORY HENDERSON Rep #: [id number] : 1985 39 From: Jordyn Meza DPT Referring Dr.: Dr. Brooks Acosta MD Status: R EG RCR Insurance: [facility] [employer] Patient's Visit Information [...] to be FAXED BACK to us at [phone] for Medicare purposes. For Medicare only, by signing this I certify the plan of care. Please let me know if there are questions (more content not included)... Normal [facility] Internal Medicine Office Vis iton 09-09-2024 Internal Medicine Office Visit [facility] [address] [place] [address] OFFICE VISIT Date of Service: 09/10/24 MR#: [id number] Acct: [id number] Name: DORY HENDERSON Rep #: [id number] : 1985 Provider: Dr. Brooks narayan MD Age/Sex: 39/F Location: [facility]IM Status: Signed Intake Vital Signs 03/12/24 08:58 [...] and hips ) Allergies quetiapine fumarate (From [employer]) Allergy (Verified 09/10/24 08:58) Other exenatide (From [employer] Hayden) Adverse Reaction (Intermediate, Verified 09/10/24 08:58) [...] hips as well as her right ankle. [facility] Medical History ADHD Concentration deficit induced hypertension, [...] you feel safe at home: Yes Questionnaire [facility]-9 BMS Over the last 2 weeks, how [...] the opposite (more content not included)... Normal [facility] MR/BMS.BPon 09-02-2024 MR/BMS.BP [facility] [address] [facility] [address], [address] [place] [address] OFFICE VISIT Date of Service: 09/02/24 MR#: [id number] Acct: [id number] Name: DORY HENDERSON Rep #: [id number] : 1985 Provider: Dr. Sharad Dumont se, DO Age/Sex: 39/F Location: [facility].BP Status: Signed Intake Vital Signs 07/03/24 09:30 [...] Allergy (Verified 09/02/24 09:33) Other exenatide (From [employer] BCise) Adverse Reaction (Intermediate, Verified 09/02/24 09:33) [...] 09/02/24 Hist ory mL) subcutaneous pen injector [facility] Medical History (Updated 09/02/24 @ 09:46 by [...] Dory has (more content not included)... Normal [facility] MR/BMS.BPon 09-01-2024 MR/BMS.BP [address], [address] [place] [address] OFFICE VISIT Date of Service: 09/01/24 MR#: [id number] Acct: [id number] Name: DORY HENDERSON Rep #: [id number] : 1985 Provider: [facility] Jessika vinson Age/Sex: 39/F Location: [facility].BP Status: Signed Intake Vital Signs 05/20/24 09:23 [...] prevention lindsey (more content not included)... Normal [facility] MR/BMS.BPon 08-18-2024 MR/BMS.[address], [address] [place] [address] OFFICE VISIT Date of Service: 08/18/24 MR#: [id number] Acct: [id number] Name: DORY HENDERSON Rep #: [id number] : 1985 [facility]/Sex: 39/F Location: [facility]BP Status: Signed Intake Vital Signs 05/20/24 09:23 08/11/24 12:47 08/18/24 11:13 Height 5 ft 4 in 5 ft 4 in 5 ft 4 in BP Intake Visit Reasons: Follow up Allergies quetiapine fumarate (From Seroquel) Allergy (Verified 07/18/24 10:39) Other exenatide (From Bydureon BCise) Adverse Reaction (Intermediate, Verified 07/18/24 10:39) Swelling Sulfa (Sulfonamide Antibiotics) Adverse Reaction (Verified 07/18/24 10:39) Diarrhea [facility] Medical History Concentration deficit induced hypertension, ESTHER [...] thought patter (more content not included)... Normal [facility] 08-12-2024 Urine Volume, Total 650 ml Normal [facility] Comment on above: Order Comment: 650ML Performed By: #### N GPCR1, CTPCR #### [address] 08-11-2024 Cortisol Free 24h Ur 4 UG/24 HR Low 6-42 [facility] Comment on above: Order Comment: 650ML Result Comment: Perf ormed At: [facility] [id number] Jerry Nagel MD Ph:[phone] Performed By: #### N GPCR1, CTPCR #### [place] [address] Cortisol Free Ur 6 UG/L Normal Undefined [facility] Comment on above: Order Comment: 650ML Result Comment: This test was developed and its performance characteristics determined by [facility]. It has not been cleared or approved by the Food and Drug Administration. Performed By: #### N GPCR1, CTPCR #### [address] [address] METUon 08-11-2024 Urine Volume, Total 650 ml Normal [facility] Comment on above: Order Comment: 650ML Performed By: #### C AU24, NAU24 #### [facility] [address] [place] [address] #### [id number], TVOLCRE, UALDOS #### [address] [address] MISCNBon 08-11-2024 [facility] Send Out (Non Blood) See Comments Normal [facility] Comment on above: Order Comment: Aquilino kumar see scanned report. Thanks Performed By: #### 5 [address]19 #### [address] [address] MR/BMS.BPon 08-11-2024 MR/[place] [address] OFFICE VISIT Date of Service: 08/11/24 MR#: [id number] Acct: [id number] Name: DORY HENDERSON [place] Rep #: [id number] : 1985 [facility] Age/Sex: 39/F Location: [facility]BP Status: Signed Intake Vital Signs 05/20/24 09:23 [...] thought pat (more content not included)... Normal [facility] METUon 08-09-2024 Metaneph 24h Ur 83 UG/24 HR Normal 36-209 [facility] Comment on above: Order Comment: 650ML Result Comment: Perf ormed At: [facility] [id number] Jerry Nagel MD Ph:[phone] Performed By: #### C AU24, NAU24 #### [place] [address] #### [id number], JOSE MARIA GONZALEZ #### [address] [address] Metaneph Ur 128 UG/L Normal Undefined [facility] Comment on above: Order Comment: 650ML Result Comment: This test was developed and its performance characteristics determined [facility] It has not been cleared or approved by the Food and Drug Administration. Performed By: #### C AU24, NAU24 #### [place] [id number] #### [id number], TVOLCRE UALDOS #### [address] [address] Normetaneph 24h Ur 291 UG/24 HR Normal 131-612 [facility] Comment on above: Order Comment: 650ML Performed By: #### C AU24, NAU24 #### [address] [address] #### [id number], TVOLCRE, UALDOS #### [address] [address] Normetaneph Ur 448 UG/L Normal Undefined [facility] Comment on above: Order Comment: 650ML Result Comment: This test was developed and its performance characteristics determined by [facility]. It has not been cleared or approved by the Food and Drug Administration. Performed By: #### C AU24, NAU24 #### [place] [address] #### 704003, TVOLCRE, UALDOS #### [place] [address] UALDOSon 08-07-2024 Period (Hrs) 24 hr Normal [facility] Comment on above: Order Comment: 650ML Result Comment: Perf ormed By: [facility] [place] [address] Veneer Patcher: Clarke Vizcarra III, M.D. CLIA#: [id number] Performed By: #### C AU24, NAU24 #### [place] [address] #### [id number], TVOLCRE, UALDOS #### [address] [address] U24 K 38 mmol/24 hr Normal 30-99 [facility] Comment on above: Order Comment: 650ML Result Comment: Perf ormed By: [facility] [place] [address] Veneer Patcher: Clarke Vizcarra III, M.D. CLIA#: [id number] Performed By: #### C AU24, NAU24 #### [place] [address] #### [id number], TVOLCRE, UALDOS #### [address] [address] U24 Na 17 mmol/24 hr Low 40-220 [facility] Comment on above: Order Comment: 650ML Result Comment: Perf ormed By: [place] [address] Veneer Patcher: Clarke Vizcarra III, M.D. CLIA#: [id number] Performed By: #### C AU24, NAU24 #### [address] [address] #### [id number], TVOLCRE, UALDOS #### [address] [address] Ur Aldosterone 29.0 UG/24 HR High 3.0-<28.1 [facility] Comment on above: Order Comment: 650ML Result Comment: 650M L Performed By: [place] [address] Veneer Patcher: Clarke Vizcarra III, M.D. CLIA#: [id number] Performed By: #### C AU24, NAU24 #### [place] [address] #### [id number], TVOLCRE, UALDOS #### [address] [address] Volume (ml) 650 ml Normal [facility] Comment on above: Order Comment: 650ML Result Comment: 650M L Performed By: [place] [address] Veneer Patcher: Clarke Vizcarra III, M.D. CLIA#: [id number] Performed By: #### C AU24, NAU24 #### [place] [address] #### [id number], TVOLCRE, UALDOS #### [address] [address] [id number] 08-06-2024 Calcium [Mass/Vol] 40.0 mg/dL Normal [facility] Comment on above: Order Comment: 650ML Performed By: #### C AU24, NAU24 #### [place] [address] #### [id number], TVOLCRE, UALDOS #### [address] [address] U24 Calcium 260 mg/24hr Normal 100-300 [facility] Comment on above: Order Comment: 650ML Performed By: #### C AU24, NAU24 #### [place] [address] #### 191549, TVOLCRE, UALDOS #### [place] [address] [id number] 08-06-2024 Sodium [Moles/Vol] 26 mmol/L Normal [facility] Comment on above: Order Comment: 650ML Performed By: #### C AU24, NAU24 #### [place] [address] #### 050626, TVOLCRE, UALDOS #### [place] [address] U24 Sodium 17 mEq/24hr Low 40-220 [facility] Comment on above: Order Comment: 650ML Performed By: #### C AU24, NAU24 #### [place] [address] #### 000653, TVOLCRE, UALDOS #### [place] [address] .TV 24 Houron 08-05-2024 Collection Period 24 hour Normal [facility] Comment on above: Order Comment: 650ML Performed By: #### C AU24, NAU24 #### [place] [address] #### [id number], TVOLCRE, UALDOS #### [place] [address] U24 Total Volume 650 mL/24hr [facility] Comment on above: Order Comment: 650ML Performed By: #### C AU24, NAU24 #### [place] [address] #### 510521, TVOLCRE, UALDOS #### [place] [address] 24CRUon 08-05-2024 Creatinine [Mass/Vol] 207.8 mg/dL Normal 29.0-226.0 [facility] Comment on above: Performed By: #### 5 [address] #### [address] [address] U24 Creatinine 1.35 g/24hr Normal 0.67-1.59 [facility] Comment on above: Performed By: #### 5 [address] #### [place] [address] [place] [address] U24 Total Volume 650 mL/24hr Normal [facility] Comment on above: Performed By: #### 5 [address] #### [place] [address] LABORATORYOrdered By: Cem Gutierrez on 08-05-2024 Calcium [...] above: Result Comment: Perf ormed At: [facility] [address] [id number] Jerry Nagel MD Ph:[phone] Metaneph Ur (LC) 128 UG/L Invalid Interpretation [...] on above: Result Comment: Perf ormed By: [place] [address] Veneer Patcher: Clarke Vizcarra III, M.D. CLIA#: [id number] U24 K 38 mmol/24 hr Invalid Interpretation Code 30-99 [facility] Comment on above: Result Comment: Perf ormed By: [place] [address] Veneer Patcher: Clarke Vizcarra III, M.D. CLIA#: [id number] U24 Na 17 mmol/24 hr Low 40-220 [facility] Comment on above: Result Comment: Perf ormed By: [place] [address] Veneer Patcher: Clarke Vizcarra III, M.D. CLIA#: [id number] Ur Aldosterone 29.0 UG/24 HR High 3.0-<28.1 [facility] Comment on above: Result Comment: 650M L Performed By: [place] [address] Veneer Patcher: Clarke Vizcarra III, M.D. CLIA#: [id number] Volume (ml) 650 mL Invalid Interpretation Code [facility] Comment on above: Result Comment: 650M L Performed By: [place] [address] Veneer Patcher: Clarke Vizcarra III, M.D. CLIA#: [id number] Sylvester 08-05-2024 / [address], [place] [address] OFFICE VISIT Date of Service: 08/04/24 MR#: [id number] Acct: [id number] Name: DORY HENDERSON Rep #: [id number] : 1985 Provider: SADE vinson Age/Sex: 39/F Location: [facility].BP Status: Signed Intake Vital Signs 05/20/24 09:23 [...] BH therapy. She receives psychiatric services at [facility] through Dr. Sharad Santiago. Dory is prescribed Buspar 15 mg TID. Atomoxetine 25mg is being considered for concentration problems if she obtains lower blood pressure readings. Dory previously worked with this therapist at [facility]. Prior to that, she participated in counseling at [facility] seeing several therapists there. She identifies currently struggling with anxious symptoms and difficulties concentration. Household tasks are especially difficult to complete. In the past, Dory has had intrusive thoughts about something bad happening to her children, which has interfered with her sleep. She reports that her depression is currently well managed. Dory has experienced depression with one of her pregnancies. She was diagnosed with Bipolar Disorder in the past and has tried a number of medications. Dory resided in a halfway ages [age] and reports a trauma history. [...] able t (more content not included)... Normal [facility] No Panel InformationOrdered By: Lenin Daugherty on 08-05-2024 U24 Total Volume 650 mL/24hr Invalid Interpretation Code AO Chemistry S DEXAon 08-02-2024 Dexamethasone Level 229 ng/dL Normal [facility] Comment on above: Result Comment: This test was developed and its performance characteristics determined by [facility]. It has not been cleared or approved by the Food and Drug Administration. Reference Range: Adults baseline: <30 8:00 AM following 1 mg dexamethasone previous evenin - 295 8:00 AM following 8 mg dexamethasone (4 x 2 mg doses) previous day: 1600 - 2850 Performed At: [employer] [address] [place] [id number] Va Perry MD Ph:[phone] Performed By: #### 5 [address] #### [place] [address] [place], [place] [address] CORTon 07-29-2024 Cortisol Level 1.9 mcg/dL Normal [facility] Comment on above: Result Comment: Song isol AM Reference Range 6.5-26.0 mcg/dL Cortisol PM Reference Range 3.5-15.0 mcg/dL Performed By: #### 5 23788 #### [address] [address] LABORATORYOrdered By: SYSTEM SYSTEM on 07-29-2024 Cortisol [Mass/Vol] 1.9 ug/dL Invalid Interpretation Code AH ADM SS Comment on above: Interpretive Data: C ortisol AM Reference Range 6.5-26.0 mcg/dL Cortisol PM Reference Range 3.5-15.0 mcg/dL Foot min 3 Viewson 5 Foot min 3 Views [facility] Imaging Services [address] [place] [address] [id number] Foot min 3 Views MR#: [id number] Acct: [id number] Name: DORY HENDERSON Rep #: [id number] : 1985 F 39 From: Dania Chung MD PCP: Dr. Brooks Acosta MD Status: DEP AMB Study: Foot min 3 Views Date of Exam: 07/21/24 Exam# [id number] Ordering Dr: Sriram Reese PA PROCEDURE: FOOT [...] increased at the Achilles surface. Reading Location: [id number] CC: Dr. Brooks Acosta MD; NAHID Dale [facility] Programmer: Signed Normal [facility] Internal Medicine Office Vis ito 07-18-2024 Internal Medicine Office Visit [facility] [address] [place] [address] [place] [address] OFFICE VISIT Date of Service: 07/18/24 MR#: [id number] Acct: [id number] Name: DORY HENDERSON [place] Rep #: [id number] : 1985 Provider: NAHID Dale Age/Sex: 39/F Location: [facility] Status: Signed Intake Vital Signs 07/03/24 09:30 [...] right hand. denies knowledge of any injury [facility] Medical History Concentration deficit induced hypertension, ESTHER [...] Basophil, Absolute 0.0 10 3/mcL Normal 0.0-0.3 [facility] Comment on above: Performed By: #### N GPCR1, CTPCR #### [address] [address] Basophils/100 WBC (Bld) 0.3 % Normal 0.0-2.5 [facility] Comment on above: Performed By: #### N GPCR1, CTPCR #### [address] [address] Eosinophil, Absolute 0.3 10 3/mcL Normal 0.0-0.7 [facility] Comment on above: Performed By: #### N GPCR1, CTPCR #### [address] [address] Eosinophils/100 WBC (Bld) 2.3 % Normal 0.0-6.0 [facility] Comment on above: Performed By: #### N GPCR1, CTPCR #### [address] [address] Lymphocyte, Absolute 2.4 10 3/mcL Normal 0.9-4.3 [facility] Comment on above: Performed By: #### N GPCR1, CTPCR #### [address] [address] Lymphocytes/100 WBC (Bld) 20.5 % Normal 20.0-40.0 [facility] Comment on above: Performed By: #### N GPCR1, CTPCR #### [address] [address] Monocyte, Absolute 0.7 10 3/mcL Normal 0.1-1.4 [facility] Comment on above: Performed By: #### N GPCR1, CTPCR #### [address] [address] Monocytes/100 WBC (Bld) 5.6 % Normal 2.0-13.0 [facility] Comment on above: Performed By: #### N GPCR1, CTPCR #### [address] [address] Neutrophils/100 WBC (Bld) 71.3 % Normal 50.0-75.0 [facility] Comment on above: Performed By: #### N GPCR1, CTPCR #### [address] [address] .GFRon 07-17-2024 Estimated Glomerular Filtration Rate 115 ml/min/1.73sqm Normal [facility] Comment on above: Result Comment: Stages [...] Performed By: #### N GPCR1, CTPCR #### [address] [address] .NEUABSon 07-17-2024 Neutrophil, Absolute 8.3 10 3/mcL High 2.3-8.1 [facility] Comment on above: Performed By: #### N GPCR1, CTPCR #### [place] [address] CBCon 07-17-2024 Erythrocyte distribution width (RBC) [Ratio] 15.6 % High 11.5-15.5 [facility] Comment on above: Performed By: #### A KATIA, VIDH, LIPID, GFR, ADIFF, TSH, CBC, IBC, FERR, CMP #### [place] [id number] [place], [place] [address] #### INSLN, CPEP #### [address] [address] Hematocrit (Bld) [Volume fraction] 38.8 % Normal 34.0-46.0 [facility] Comment on above: Performed By: #### A KATIA, VIDH, LIPID, GFR, ADIFF, TSH, CBC, IBC, FERR, CMP #### [place] [address] #### INSLN, CPEP #### [place] [address] Hgb 12.8 G/dL Normal 12.0-16.0 [facility] Comment on above: Performed By: #### A KATIA, VIDH, LIPID, GFR, ADIFF, TSH, CBC, IBC, FERR, CMP #### [place] [address] #### INSLN, CPEP #### [place] [address] MCH (RBC) [Entitic mass] 25.4 pg Low 27.0-33.0 [facility] Comment on above: Performed By: #### A KATIA, VIDH, LIPID, GFR, ADIFF, TSH, CBC, IBC, FERR, CMP #### [place] [address] #### INSLN, CPEP #### [place] [address] MCHC 33.0 G/dL Normal 32.0-36.0 [facility] Comment on above: Performed By: #### A KATIA, VIDH, LIPID, GFR, ADIFF, TSH, CBC, IBC, FERR, CMP #### [place] [address] #### INSLN, CPEP #### [place] [address] MCV (RBC) [Entitic vol] 77.2 fL Low 80.0-99.0 [facility] Comment on above: Performed By: #### A KATIA, VIDH, LIPID, GFR, ADIFF, TSH, CBC, IBC, FERR, CMP #### [place] [address] #### INSLN, CPEP #### [place] [address] Platelet 313 10 3/mcL Normal 150-450 [facility] Comment on above: Performed By: #### A KATIA, VIDH, LIPID, GFR, ADIFF, TSH, CBC, IBC, FERR, CMP #### [address] [address] #### INSLN, CPEP #### [place] [address] Platelet mean volume (Bld) [Entitic vol] 8.3 fL Normal 6.6-10.5 [facility] Comment on above: Performed By: #### A KATIA, VIDH, LIPID, GFR, ADIFF, TSH, CBC, IBC, FERR, CMP #### [place] [address] #### INSLN, CPEP #### [place] [address] RBC 5.03 10 6/mcL Normal 4.10-5.30 [facility] Comment on above: Performed By: #### A KATIA, VIDH, LIPID, GFR, ADIFF, TSH, CBC, IBC, FERR, CMP #### [place] [address] #### INSLN, CPEP #### [place] [address] WBC 11.6 10 3/mcL High 4.5-10.8 [facility] Comment on above: Performed By: #### A KATIA, VIDH, LIPID, GFR, ADIFF, TSH, CBC, IBC, FERR, CMP #### [place] [address] #### INSLN, CPEP #### [place] [address] CMPon 07-17-2024 Albumin Level 3.6 G/dL Normal 3.5-5.0 [facility] Comment on above: Performed By: #### N GPCR1, CTPCR #### [place] [address] Albumin/Globulin [Mass ratio] 0.9 {ratio} Low 1.1-2.5 [facility] Comment on above: Performed By: #### N GPCR1, CTPCR #### [address] [address] ALP [Catalytic activity/Vol] 129 U/L Normal 40-135 [facility] Comment on above: Performed By: #### N GPCR1, CTPCR #### [address] [address] ALT [Catalytic activity/Vol] 95 U/L High 14-59 [facility] Comment on above: Performed By: #### N GPCR1, CTPCR #### [address] [address] AST [Catalytic activity/Vol] 47 U/L High 10-40 [facility] Comment on above: Performed By: #### N GPCR1, CTPCR #### [place] [id number] Bili Total 0.4 mg/dL Normal 0.2-1.0 [facility] Comment on above: Result Comment: Use of this assay is not recommended for patients undergoing treatment with eltrombopag due to the potential for falsely elevated results. Performed By: #### N GPCR1, CTPCR #### [place] [id number] BUN/Creatinine Ratio 17 ratio Normal 7-27 [facility] Comment on above: Performed By: #### N GPCR1, CTPCR #### [place] [address] Calcium [Mass/Vol] 9.2 mg/dL Normal 8.4-10.2 [facility] Comment on above: Performed By: #### N GPCR1, CTPCR #### [place] [address]34[address] Chloride [Moles/Vol] 104 mmol/L Normal 98-107 [facility] Comment on above: Performed By: #### N GPCR1, CTPCR #### [place] [address]34[address] CO2 [Moles/Vol] 30 mmol/L High 22-29 [facility] Comment on above: Performed By: #### N GPCR1, CTPCR #### [address] [address] Creatinine [Mass/Vol] 0.69 mg/dL Normal 0.51-0.95 [facility] Comment on above: Performed By: #### N GPCR1, CTPCR #### [address] [address] Electrolyte Balance 4.0 mEq/L Normal 4.0-15.0 [facility] Comment on above: Performed By: #### N GPCR1, CTPCR #### [address] [address] Globulin 4.2 G/dL Normal 2.7-4.4 [facility] Comment on above: Performed By: #### N GPCR1, CTPCR #### [place] [id number] Glucose [Mass/Vol] 153 mg/dL High 70-105 [facility] Comment on above: Performed By: #### N GPCR1, CTPCR #### [address] [address] Potassium [Moles/Vol] 4.2 mmol/L Normal 3.5-5.1 [facility] Comment on above: Performed By: #### N GPCR1, CTPCR #### [address] [address] Sodium [Moles/Vol] 138 mmol/L Normal 136-145 [facility] Comment on above: Performed By: #### N GPCR1, CTPCR #### [address] [address] Total Protein 7.8 G/dL Normal 6.4-8.2 [facility] Comment on above: Performed By: #### N GPCR1, CTPCR #### [address] [address] Urea nitrogen [Mass/Vol] 12 mg/dL Normal 7-18 [facility] Comment on above: Performed By: #### N GPCR1, CTPCR #### [address] [address] CPEPon 07-17-2024 C-Peptide 4.56 ng/mL High 0.81-3.85 [facility] Comment on above: Performed By: #### N GPCR1, CTPCR #### [address] [address] Adolfo 07-17-2024 Ferritin [Mass/Vol] 62.0 ng/mL Normal 8.0-252.0 [facility] Comment on above: Performed By: #### N GPCR1, CTPCR #### [place] [address] IBCon 07-17-2024 TIBC 368 mcg/dL Normal 250-450 [facility] Comment on above: Performed By: #### N GPCR1, CTPCR #### [place] [address] INSLNon 07-17-2024 Insulin 19.64 munit/L Normal 2.60-37.60 [facility] Comment on above: Performed By: #### N GPCR1, CTPCR #### [place] [address] LABORATORYOrdered By: SYSTEM SYSTEM on 07-17-2024 25-hydroxyvitamin [...] 07-17-2024 Cholesterol [Mass/Vol] 186 mg/dL Normal 0-200 [facility] Comment on above: Result Comment: Chol esterol Reference Interval: Less than 200 Desirable 200-239 Borderline high risk 240 and above High risk Performed By: #### N GPCR1, CTPCR #### [address] [address] Cholesterol in HDL [Mass/Vol] 39 mg/dL Low 40-60 [facility] Comment on above: Performed By: #### N GPCR1, CTPCR #### [address] [address] Cholesterol in LDL [Mass/Vol] 132 mg/dL High 0-130 [facility] Comment on above: Performed By: #### N GPCR1, CTPCR #### [place] [address] Triglyceride [Mass/Vol] 73 mg/dL Normal 0-150 [facility] Comment on above: Result Comment: Trig lyceride Reference Interval: Less than 150 Normal 150-199 Borderline high risk 200-499 High risk 500 or higher Very high risk Performed By: #### N GPCR1, CTPCR #### [place] [address] TSHon 07-17-2024 TSH Qn 1.96 m[IU]/L Normal 0.36-3.74 [facility] Comment on above: Performed By: #### N GPCR1, CTPCR #### [place] [address] VIDHon 07-17-2024 Vit. D 25-Hydroxy 28.5 ng/mL Normal [facility] Comment on above: Result Comment: Inte rpretive Values Based on Total 25(OH) Vitamin D: Deficient <20 ng/mL Insufficient 20 - <30 ng/mL Sufficient 30-100 ng/mL Performed By: #### N GPCR1, CTPCR #### [place] [address] MR/BMS.BPon 07-03-2024 MR/BMS.BP [address], [place] [address] OFFICE VISIT Date of Service: 07/03/24 MR#: [id number] Acct: [id number] Name: DORY HENDERSON [place] Rep #: [id number] : 1985 Provider: Dr. Sharad Dumont se, DO Age/Sex: 39/F Location: [facility] Status: Signed Intake Vital Signs 06/02/24 13:35 [...] 10 mg PO QDAY 07/03/24 07/03/24 [facility] Concentration deficit induced hypertension, ESTHER [...] Only g (more content not included)... Normal [facility] Internal Medicine Office Vis car 06-01-2024 Internal Medicine Office Visit [facility] [address] [place] [address] A [place], [place] [address] OFFICE VISIT Date of Service: 06/02/24 MR#: [id number] Acct: [id number] Name: DORY HENDERSON Rep #: [id number] : 1985 Provider: Dr. 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 Normal [facility] MR/BMS.BPon 05-20-2024 MR/BMS.BP [address], [address] [place] [address] OFFICE VISIT Date of Service: 05/20/24 MR#: [id number] Acct: [id number] Name: DORY HENDERSON Rep #: [id number] : 1985 Provider: Dr. Sharad Dumont se, DO Age/Sex: 39/F Location: [facility] Status: Signed Intake Vital Signs 03/18/24 09:20 [...] from sig (more content not included)... Normal [facility] Final Surgical Pathology Rep [facility] 05-06-2024 Final Surgical Pathology Report . Pathology Reports Accession: Collected Date/Time: Received Date/Time: Pathologist: [id number] 05/01/2024 08:05 EST 05/02/2024 10:18 LORRAINE MATHEWS MD Final Surgical Pathology Report DIAGNOSIS: BILATERAL FALLOPIAN TUBES: - 2 UNREMARKABLE SEGMENTS OF FALLOPIAN TUBES CONFIRMED CLINICAL INFORMATION: ENCOUNTER FOR STERILIZATION Procedure: LAPAROSCOPIC BILATERAL SALPINGECTOMY ANG REMOVAL OF INTERUTERINE DEVICE Preoperative diagnosis: DESIRES STERILIZATION Postoperative diagnosis: DESIRES STERILIZATION SPECIMEN: A FALLOPIAN TUBES GROSS DESCRIPTION: All parts labelled with patient name and [id number] Received in formalin labelled bilateral tubes are 2 fimbriated non-designated fallopian tube segments the shorter segment measuring 4.5 cm in length, 0.5 cm in diameter and is inked black. The longer segment of fallopian tube measures 5 cm in length, 0.6 cm in diameter. RS-1 Dania Yi, Pathologists' Devulcanizer Charger (ASCP) Performed by DANIA YI MICROSCOPIC DESCRIPTION: The microscopic examination is performed, except in the case of Gross Only. Verified by Pathology Report verified by [facility] LORRAINE ADIEL Sign out Date: 05/06/2024 10:44 Performing Lab: [facility], [address] [place] [address] Pathology Dept Disclaimer If ancillary studies were utilized, the following Laboratory Developed Test (LDT) disclaimer will apply: Under CLIA requirements, [facility] is qualified to perform high complexity testing. For all ancillary stains, positive and negative controls stain appropriately. Performance characteristics of immunohistochemical and chromogenic in-situ hybridization tests have been determined by [facility]. These tests are used for clinical purposes, They should not be regarded as investigational or for research. Normal [facility] ABO/Rh (Gel)on 05-01-2024 ABO/Rh Interp Negative Invalid Interpretation Code [facility] Comment on above: Performed By: #### C AU24, NAU24 #### [place] [address] #### [id number], TVOLCRE, UALDOS #### [address] [address] ABS (Gel)on 05-01-2024 ABSC Interp (Gel) Negative Normal [facility] Comment on above: Performed By: #### C AU24, NAU24 #### [place] [address] #### [id number], TVOLCRE, UALDOS #### [place] [address] [place], [place] [address] LABORATORYOrdered By: Charla Mackay on 05-01-2024 Glucose [Mass/Vol] 113 mg/dL High 70 - 110 mg/dL [facility] Work Phone: LABORATORYOrdered By: Cynthia Tena on [...] HCG ( test) Ql (U) Negative Normal [facility] Comment on above: Performed By: #### 5 84698 #### [address] [address] test (u) int Not detected Invalid Interpretation Code [facility] Comment on above: Performed By: #### 5 05583 #### [address] [address] .Auto Diffon 04-22-2024 Basophil, Absolute 0.0 10 3/mcL Normal 0.0-0.2 [facility] Comment on above: Performed By: #### 5 01911 #### [address] [address] Basophils/100 WBC (Bld) 0.2 % Normal 0.0-2.5 [facility] Comment on above: Performed By: #### 5 35250 #### [address] [address] Eosinophil, Absolute 0.2 10 3/mcL Normal 0.0-0.7 [facility] Comment on above: Performed By: #### 5 68357 #### [address] [address] Eosinophils/100 WBC (Bld) 4.3 % Normal 0.0-7.0 [facility] Comment on above: Performed By: #### 5 32813 #### [address] [address] Lymphocyte, Absolute 1.8 10 3/mcL Normal 0.9-4.3 [facility] Comment on above: Performed By: #### 5 16733 #### [address] [address] Lymphocytes/100 WBC (Bld) 39.3 % Normal 20.0-40.0 [facility] Comment on above: Performed By: #### 5 66151 #### [address] [address] Monocyte, Absolute 0.4 10 3/mcL Normal 0.1-1.4 [facility] Comment on above: Performed By: #### 5 81528 #### [address] [address] Monocytes/100 WBC (Bld) 8.0 % Normal 2.0-13.0 [facility] Comment on above: Performed By: #### 5 07326 #### [address] [address] Neutrophils/100 WBC (Bld) 48.2 % Low 50.0-75.0 [facility] Comment on above: Performed By: #### 5 21106 #### [address] [address] .NEUABSon 04-22-2024 Neutrophil, Absolute 2.2 10 3/mcL Low 2.3-8.1 [facility] Comment on above: Performed By: #### 5 76366 #### [place] [address] [place], [place] [address] ABO/Rh (Gel)on 04-22-2024 ABO/Rh Interp Negative Invalid Interpretation Code [facility] Comment on above: Performed By: #### 5 53021 #### [address] [address] ABS (Gel)on 04-22-2024 ABSC Interp (Gel) Negative Normal [facility] Comment on above: Performed By: #### 5 65846 #### [address] [address] CBCon 04-22-2024 Erythrocyte distribution width (RBC) [Ratio] 16.2 % High 11.5-15.5 [facility] Comment on above: Order Comment: Pre-A dmission Testing Performed By: #### 5 54054 #### [address] [address] Hematocrit (Bld) [Volume fraction] 37.0 % Normal 34.0-46.0 [facility] Comment on above: Order Comment: Pre-A dmission Testing Performed By: #### 5 94808 #### [address] [address] Hgb 12.4 G/dL Normal 12.0-16.0 [facility] Comment on above: Order Comment: Pre-A dmission Testing Performed By: #### 5 51737 #### [address] [address] MCH (RBC) [Entitic mass] 24.8 pg Low 27.0-33.0 [facility] Comment on above: Order Comment: Pre-A dmission Testing Performed By: #### 5 13865 #### [place] [address] MCHC 33.4 G/dL Normal 32.0-36.0 [facility] Comment on above: Order Comment: Pre-A dmission Testing Performed By: #### 5 82873 #### [address] [address] MCV (RBC) [Entitic vol] 74.1 fL Low 80.0-99.0 [facility] Comment on above: Order Comment: Pre-A dmission Testing Performed By: #### 5 18065 #### [address] [address] Platelet 227 10 3/mcL Normal 150-450 [facility] Comment on above: Order Comment: Pre-A dmission Testing Performed By: #### 5 01469 #### [address] [address] Platelet mean volume (Bld) [Entitic vol] 8.1 fL Normal 6.6-10.5 [facility] Comment on above: Order Comment: Pre-A dmission Testing Performed By: #### 5 49183 #### [address] [address] RBC 4.98 10 6/mcL Normal 4.10-5.30 [facility] Comment on above: Order Comment: Pre-A dmission Testing Performed By: #### 5 05088 #### [facility] [address] [place], [place] [address] WBC 4.6 10 3/mcL Normal 4.5-10.8 [facility] Comment on above: Order Comment: Pre-A dmission Testing Performed By: #### 5 13124 #### [place] [address] [place], [place] [address] LABORATORYOrdered By: Silvia Daugherty on 04-22-2024 ABO [...] Reporton 0 04-17-2024 Urgent Care Visit Report [facility] [address], [address] [place] [address] OFFICE VISIT Date of Service: 04/17/24 MR#: [id number] Acct: [id number] Name: DORY HENDERSON Rep #: [id number] : 1985 Provider: NAHID Rogers Age/Sex: 39/F Location: [facility] Status: Signed Intake Vital Signs 04/14/24 19:22 04/17/24 16:13 Height 5 ft 4 in BP 140/62 H Blood Pressure Location Rt brachial Position Sitting Respiration 15 Pulse 9 L Pulse Source NIBP Temp 98.7 F Temp Source Oral Pulse Oximetry (%) 99 Oxygen Delivery Method room air Intake Visit Reasons: CONCERN FOR FLU A Chief Complaint: ST, cough, mucus Sculpture Conservator Required: No Is patient in pain?: No Allergies quetiapine fumarate (From [employer]) Allergy (Verified 04/17/24 16:13) Other exenatide (From ByTradegecko) Adverse Reaction (Intermediate, Verified 04/17/24 16:13) Swelling [...] Patient darden (more content not included)... Normal [facility] 12 Lead EKGon 04-14-2024 12 Lead EKG [facility] Cardiovascular Services [address] [place] [address] 12 Lead EKG 04/14/24 1931 MR#: [id number] Acct: [id number] Name: DORY HENDERSON Rep #: [id number] : 1985 39 From: Dave Iverson MD [...] rhythm Normal ECG Confirmed by Dave Iverson ([id number]), editor book LUCY SINGLETON ([id number]) on 04/15/2024 10:00:24 AM Referred By: RU Confirmed By: Dave Iverson 04/15/24 1000 Date Dave Iverson MD CC: Dr. Brooks Acosta MD; Dr. Chay Ag DO Signed Normal [facility] Abdomen/Pelvis W IV Cont ONL Yon 04-14-2024 Abdomen/Pelvis W IV Cont ONLY [facility] Imaging Services [address] [place] [address] Abdomen/Pelvis W IV Cont ONLY MR#: [id number] Acct: [id number] Name: DORY HENDERSON Rep #: [id number] : 1985 F 39 From: Dania Covington PCP: Dr. Brooks Acosta MD Status: REG ER Study: Abdomen/Pelvis W IV Cont ONLY Date of Exam: Exam# [id number] Ordering Dr: Chay Ag DO PROCEDURE: CT [...] Brooks Acosta MD; Dr. Chay Ag DO [facility] Programmer: Signed Normal [facility] CBC W/Diff, Automatedon 04-05-2024 Absolute Lymph 2.24 X10 3/uL Normal 0.83-4.51 [facility] Comment on above: Performed By: #### L 501.5425, L501.2450, L700.6800, L500.4050, L100.0100 ####[facility] [address] [place], [address] Absolute Neut 12.7 X10 3/uL High 2.0-7.7 [facility] Comment on above: Performed By: #### L 501.5425, L501.2450, L700.6800, L500.4050, L100.0100 ####[facility] [address] [place], [address] Basophils/100 WBC (Bld) 0.2 % Normal 0-1 [facility] Comment on above: Performed By: #### L 501.5425, L501.2450, L700.6800, L500.4050, L100.0100 ####[facility] [address] [place], [address] Eosinophils/100 WBC (Bld) 0.9 % Normal 0-5 [facility] Comment on above: Performed By: #### L 501.5425, L501.2450, L700.6800, L500.4050, L100.0100 ####[facility] [address] [place], [address] Erythrocyte distribution width (RBC) [Ratio] 15.1 % High 11.6-14.6 [facility] Comment on above: Performed By: #### L 501.5425, L501.2450, L700.6800, L500.4050, L100.0100 ####[facility] [address] [place], [address] Hematocrit (Bld) [Volume fraction] 38.2 % Normal 37-47 [facility] Comment on above: Performed By: #### L 501.5425, L501.2450, L700.6800, L500.4050, L100.0100 ####[facility] [address] [place], [address] Hemoglobin (Bld) [Mass/Vol] 12.3 g/dL Normal 12.0-15.0 [facility] Comment on above: Performed By: #### L 501.5425, L501.2450, L700.6800, L500.4050, L100.0100 ####[facility] [address] [place], [address] IG% 0.500 Normal 0.0-0.9 [facility] Comment on above: Result Comment: IG% - Immature Granulocytes (promyelocytes, myelocytes and metamyelocytes) > 1% indicates that a LEFT SHIFT is Present. Performed By: #### L 501.5425, L501.2450, L700.6800, L500.4050, L100.0100 ####[facility] [address] [place], [address] Lymphocytes/100 WBC (Bld) 14.2 % Low 19-41 [facility] Comment on above: Performed By: #### L 501.5425, L501.2450, L700.6800, L500.4050, L100.0100 ####[facility] [address] [place], [address] MCH (RBC) [Entitic mass] 24.6 pg Low 27.0-32.0 [facility] Comment on above: Performed By: #### L 501.5425, L501.2450, L700.6800, L500.4050, L100.0100 ####[facility] [address] [place], [address] MCHC (RBC) [Mass/Vol] 32.2 g/dL Normal 32-36 [facility] Comment on above: Performed By: #### L 501.5425, L501.2450, L700.6800, L500.4050, L100.0100 ####[facility] [address] [place], [address] MCV (RBC) [Entitic vol] 76.2 fL Low 81-99 [facility] Comment on above: Performed By: #### L 501.5425, L501.2450, L700.6800, L500.4050, L100.0100 ####[facility] [address] [place], [address] Monocytes/100 WBC (Bld) 4.1 % Normal 0-10 [facility] Comment on above: Performed By: #### L 501.5425, L501.2450, L700.6800, L500.4050, L100.0100 ####[facility] [address] [place], [address] Neutrophils/100 WBC (Bld) 80.1 % High 47-70 [facility] Comment on above: Performed By: #### L 501.5425, L501.2450, L700.6800, L500.4050, L100.0100 ####[facility] [address] [place], [address] Nucleated RBC (Bld) [#/Vol] 0 10*3/uL Normal 0-5 [facility] Comment on above: Performed By: #### L 501.5425, L501.2450, L700.6800, L500.4050, L100.0100 ####[facility] [address] [place], [address] Platelet mean volume (Bld) [Entitic vol] 10.5 fL Normal 6.2-12.0 [facility] Comment on above: Performed By: #### L 501.5425, L501.2450, L700.6800, L500.4050, L100.0100 ####[facility] [address] [place], [address] Platelets (Bld) [#/Vol] 330 10*3/uL Normal 150-450 [facility] Comment on above: Performed By: #### L 501.5425, L501.2450, L700.6800, L500.4050, L100.0100 ####[facility] [address] [place], [address] RBC (Bld) [#/Vol] 5.01 10*6/uL Normal 4.2-5.4 [facility] Comment on above: Performed By: #### L 501.5425, L501.2450, L700.6800, L500.4050, L100.0100 ####[facility] [address] [place], [address] RDW SD 41.5 fl Normal 35.1-43.9 [facility] Comment on above: Performed By: #### L 501.5425, L501.2450, L700.6800, L500.4050, L100.0100 ####[facility] [address] [place], [address] WBC (Bld) [#/Vol] 15.8 10*3/uL High 4.4-11.0 [facility] Comment on above: Performed By: #### L 501.5425, L501.2450, L700.6800, L500.4050, L100.0100 ####[facility] [address] [place], [address] Chest 1 View (Portable)on Chest 1 View (Portable) [facility] Imaging Services [address] [place] [address] Chest 1 View (Portable) MR#: [id number] Acct: [id number] Name: DORY HENDERSON Rep #: [id number] : 1985 F 39 From: Brandin Dunlap DO PCP: Dr. Brooks Acosta MD Status: REG ER Study: Chest 1 View (Portable) Date of Exam: 04/14/24 Exam# [id number] Ordering Dr: Chay Ag DO PROCEDURE: CHEST 1 VIEW (PORTABLE) REASON FOR EXAM: Chest pain. Hypertension. TECHNIQUE: Frontal view of the chest. COMPARISON: None. FINDINGS: Cardiac size and pulmonary vasculature are within normal limits. No consolidation, pleural effusion, or pneumothorax is present. RAD/Chest 1 View (Portable) IMPRESSION: No acute cardiopulmonary process. [facility] CC: Dr. Brooks Acosta MD; Dr. Chay Ag DO [facility] Programmer: Signed Normal [facility] Comprehensive Metabolic Prof ilon 04-14-2024 Albumin [Mass/Vol] 3.6 g/dL Normal 3.2-5.0 [facility] Comment on above: Performed By: #### L 501.5425, L501.2450, L700.6800, L500.4050, L100.0100 ####[facility] [address] [place], [address] Albumin/Globulin [Mass ratio] 0.9 {ratio} Normal 0.9-2.4 [facility] Comment on above: Performed By: #### L 501.5425, L501.2450, L700.6800, L500.4050, L100.0100 ####[facility] [address] [place], [address] ALK P 119 U/L High 45-117 [facility] Comment on above: Performed By: #### L 501.5425, L501.2450, L700.6800, L500.4050, L100.0100 ####[facility] [address] [place], [address] ALT [Catalytic activity/Vol] 45 U/L Normal 13-56 [facility] Comment on above: Performed By: #### L 501.5425, L501.2450, L700.6800, L500.4050, L100.0100 ####[facility] [address] [place], [address] AST [Catalytic activity/Vol] 20 U/L Normal 15-37 [facility] Comment on above: Performed By: #### L 501.5425, L501.2450, L700.6800, L500.4050, L100.0100 ####[facility] [address] [place], [address] Bilirubin [Mass/Vol] 0.30 mg/dL Normal 0.20-1.00 [facility] Comment on above: Result Comment: For patients on eltrombopag therapy, use of Dimension [place] TBIL is not recommended. Performed By: #### L 501.5425, L501.2450, L700.6800, L500.4050, L100.0100 ####[facility] [address] [place], [address] BUN/CRE 10.8 RATIO Normal 10-20 [facility] Comment on above: Performed By: #### L 501.5425, L501.2450, L700.6800, L500.4050, L100.0100 ####[facility] [address] [place], [address] CA,Total 9.1 mg/dL Normal 8.5-10.1 [facility] Comment on above: Performed By: #### L 501.5425, L501.2450, L700.6800, L500.4050, L100.0100 ####[facility] [address] [place], [address] Chloride [Moles/Vol] 105 mmol/L Normal 98-107 [facility] Comment on above: Performed By: #### L 501.5425, L501.2450, L700.6800, L500.4050, L100.0100 ####[facility] [address] [place], [address] CO2 [Moles/Vol] 24.0 mmol/L Normal 21.0-32.0 [facility] Comment on above: Performed By: #### L 501.5425, L501.2450, L700.6800, L500.4050, L100.0100 ####[facility] [address] [place] [place], [address] Creatinine [Mass/Vol] 1.02 mg/dL Normal 0.55-1.02 [facility] Comment on above: Result Comment: The validity of the calculated GFR GFRAA in patients over 70 years has not been determined. Clinical correlation is essential. Performed By: #### L 501.5425, L501.2450, L700.6800, L500.4050, L100.0100 ####[facility] [address] [place], [address] ECRCL 99.02 ml/min Normal [facility] Comment on above: Performed By: #### L 501.5425, L501.2450, L700.6800, L500.4050, L100.0100 ####[facility] [address] [place], [address] EST GFR - AA 78 mL/min Normal >60 [facility] Comment on above: Result Comment: Afri can [place] GFR Calc Performed By: #### L 501.5425, L501.2450, L700.6800, L500.4050, L100.0100 ####[facility] [address] [place], [address] GAP 9 Normal 5-15 [facility] Comment on above: Performed By: #### L 501.5425, L501.2450, L700.6800, L500.4050, L100.0100 ####[facility] [address] [place], [address] GFR/1.73 sq M.predicted among non-blacks MDRD (S/P/Bld) [Vol rate/Area] 65 mL/min/{1.73_m2} Normal >60 [facility] Comment on above: Result Comment: Non- GFR Calc Performed By: #### L 501.5425, L501.2450, L700.6800, L500.4050, L100.0100 ####[facility] [address] [place], [address] Globulin (S) [Mass/Vol] 3.9 g/dL Normal 2.2-4.2 [facility] Comment on above: Performed By: #### L 501.5425, L501.2450, L700.6800, L500.4050, L100.0100 ####[facility] [address] [place], [address] Glucose [Mass/Vol] 177 mg/dL High 74-106 [facility] Comment on above: Result Comment: Fast ing Glucose result greater than or equal to 126 mg/dL suggests DIABETES MELLITUS per A.D.A. criteria. Performed By: #### L 501.5425, L501.2450, L700.6800, L500.4050, L100.0100 ####[facility] [address] [place], [address] Potassium [Moles/Vol] 3.8 mmol/L Normal 3.5-5.1 [facility] Comment on above: Performed By: #### L 501.5425, L501.2450, L700.6800, L500.4050, L100.0100 ####[facility] [address] [place] [place], [address] Sodium [Moles/Vol] 138 mmol/L Normal 136-145 [facility] Comment on above: Performed By: #### L 501.5425, L501.2450, L700.6800, L500.4050, L100.0100 ####[facility] [address] [place], [address] T PROT 7.5 g/dL Normal 6.4-8.2 [facility] Comment on above: Performed By: #### L 501.5425, L501.2450, L700.6800, L500.4050, L100.0100 ####[facility] [address] [place], [address] Urea nitrogen [Mass/Vol] 11 mg/dL Normal 7-18 [facility] Comment on above: Performed By: #### L 501.5425, L501.2450, L700.6800, L500.4050, L100.0100 ####[facility] [address] [place], [address] Emergency Department Summary on 04-14-2024 Emergency Department Summary [facility] Medical Records Department [address] [place] [address] Emergency Department Summary 04/14/24 MR#: [id number] Acct: [id number] Name: DORY HENDERSON Rep #: [id number] : 1985 39 From: Chay Mulligan PCP: Dr. Brooks Paxton, MD Status:REG ER Location: ED HPI History [...] significant alcohol history. Denies history of pancreatitis. [facility] Medical History induced hypertension, ESTHER (generalized [...] Denies b (more content not included)... Normal [facility] L501.4020on 04-14-2024 TROPONIN-I HS 4 pg/mL Normal 3.0-54.0 [facility] Comment on above: Result Comment: Plea se Note: New Test Units and Gender Specific Reference Ranges. For more information see Policy Stat Procedure [place] High Sensitivity Troponin (TNIH) and attachments. Performed By: #### L 501.4020 ####[facility] [address] [place], [address] L501.5425on 04-14-2024 TROPONIN-I HS < 3 Low 3.0-54.0 [facility] Comment on above: Order Comment: 1Y Result Comment: Plea se Note: New Test Units and Gender Specific Reference Ranges. For more information see Policy Stat Procedure [place] High Sensitivity Troponin (TNIH) and attachments. Performed By: #### L 501.5425, L501.2450, L700.6800, L500.4050, L100.0100 ####[facility] [address] [place], [address] Lipaseon 04-14-2024 Lipase [Catalytic activity/Vol] 40 U/L Low 73-393 [facility] Comment on above: Performed By: #### L 501.5425, L501.2450, L700.6800, L500.4050, L100.0100 ####[facility] [address] [place], [address] ,Serum,hCG Quali.on 04-14-2024 HCG, SERUM QUAL Negative Normal [facility] Comment on above: Performed By: #### L 501.5425, L501.2450, L700.6800, L500.4050, L100.0100 ####[facility] [address] [place], [address] MR/on 03-18-2024 MR/BESSIE.BP [address], [address] [place] [address] OFFICE VISIT Date of Service: 03/18/24 MR#: [id number] Acct: [id number] Name: DORY HENDERSON Rep #: [id number] : 1985 Provider: Dr. Sharad Dumont se, DO Age/Sex: 39/F Location: [facility] Status: Signed Intake Vital Signs 01/10/24 09:17 [...] Antibiotics) Adverse Reaction (Verified 03/12/24 08:50) Diarrhea [facility] History (Updated 03/12/24 @ 11:16 by [...] is still awaiting testing for autism through [employer]. Has been unable to get in to [...] and coherent (more content not included)... Normal [facility] Internal Medicine Office Vis iton 03-11-2024 Internal Medicine Office Visit [facility] [address] [place] [address] OFFICE VISIT Date of Service: 03/12/24 MR#: [id number] Acct: [id number] Name: DORY HENDERSON Rep #: [id number] : 1985 Provider: Dr. Brooks narayan MD Age/Sex: 39/F Location: [facility] Status: Signed Intake Vital Signs 09/12/23 09:00 [...] 6 M FU Chief Complaint: 6m fu Sculpture Conservator Required: No Accompanied by: Self Is patient in pain?: No Allergies quetiapine fumarate (From Seroquel) Allergy (Verified 03/12/24 08:50) Other exenatide (From [employer]re[employer] BCiRevivn) Adverse Reaction (Intermediate, Verified 03/12/24 08:50) Swelling [...] seeing a new provider in July at [facility]. She is taking her medication as prescribed without problems. She does try to monitor her carbohydrate and sugar intake. She still hasn't scheduled her eye exam, but is hoping to get that done this year. She doesn't see podiatry. She does check her blo (more content not included)... Normal [facility] [employer] Cytology Reporton 2023 [facility] Cytology Report . Pathology Reports Accession: Collected Date/Time: Received Date/Time: Pathologist: [id number] 02/25/2024 09:53 EST 02/25/2024 18:00 EST [employer] Cytology Report SPECIMEN: Specimen Description: Liquid Prep [...] and evaluated with the assistance of the [employer] ThinPrep Test Imaging System. Pathology Reports Accession: Collected Date/Time: Received Date/Time: Pathologist: [id number] 02/25/2024 09:53 EST 02/25/2024 18:00 EST Electronically Signed by Pathology report verified by [facility] Screened by: LAF Electronically signed by Leticia Romero Sign-Out Date: 03/03/2024 10:05 Performing Lab: [facility], [address] [place] [address] Pathology Dept Disclaimer The Pap test is a screening test for cervical cancer. As evidenced by published data, it is subject to both inherent false negative and false positive results. Your patient's results should be interpreted in context with pertinent clinical history including gynecological examination. Normal [facility] HPVon 02-28-2024 HPV Interp Normal See Interp HPVN [facility] Comment on above: Order Comment: Order placed by AP_HPV_ORDER rule from [id number] Result Comment: High Risk HPV Typing: NEGATIVE [...] See Interp HPVN Performed By: #### 5 [id number] #### [facility] [address] [place], [place] [address] HPV Source Cervix Normal [facility] Comment on above: Order Comment: Order placed by AP_HPV_ORDER rule from [id number] Performed By: #### 5 [id number] #### [facility] [address] [place], [place] [address] LABORATORYOrdered By: Masood Garcia on 02-25-2024 HPV Interp High Risk HPV Typing : NEGATIVEHPV types 16, 18, 31, 33, 35, 39, 45, 51, 52, 56, 58, 59, 66 and 68 DNA wereundetectable or below the pre-set threshold.The dainaa High-Risk HPV DNA Test is not intended [...] Reporton 1 04-24-2023 Urgent Care Visit Report [facility] [address], [address] [place] [address] OFFICE VISIT Date of Service: 02/22/24 MR#: [id number] Acct: [id number] Name: DORY HENDERSON [place] Rep #: [id number] : 1985 Provider: NAHID Rogers Age/Sex: 39/F Location: [facility] Status: Signed Intake Vital Signs 01/10/24 09:17 [...] Allergy (Verified 02/22/24 14:20) Other exenatide (From BydureInvestGlass BCise) Adverse Reaction (Intermediate, Verified 02/22/24 14:20) [...] and flu test and they are negative. [facility] Medical History (Updated 02/22/24 @ 15:59 by [...] Const Constitution (more content not included)... Normal [facility] CTPCRon 01-29-2024 C. trachomatis Interp Normal See CT Interp N [facility] Comment on above: Result Comment: C. t rachomatis DNA not detected. Specimen is presumptive negative for C. trachomatis. A negative result does not preclude C. trachomatis infection because results depend on adequate specimen collection, absence of inhibitors, and sufficient DNA to be detected. See CT Interp N Performed By: #### N GPCR1, CTPCR #### [place] [address] C.trachomatis PCR Negative Normal Negative [facility] Comment on above: Result Comment: Mole cular (PCR) assay performed on the [employer] 4800 system. Performed By: #### N GPCR1, CTPCR #### [place] [address] Chlam Source Cervix Normal [facility] Comment on above: Performed By: #### N GPCR1, CTPCR #### [address] [address] [id number] 01-29-2024 GC PCR Source Cervix Normal [facility] Comment on above: Performed By: #### N GPCR1, CTPCR #### [place] [address] N. gonorrhoeae (PCR) Negative Normal Negative [facility] Comment on above: Result Comment: Mole cular (PCR) assay performed on the [employer] 4800 System. Performed By: #### N GPCR1, CTPCR #### [place] [address] N. gonorrhoeae Interp Normal See NG Interp N [facility] Comment on above: Result Comment: N. g onorrhoeae DNA not detected. Specimen is presumptive negative for N. gonorrhoeae. A negative result does not preclude Neisseria gonorrhoeae infection because results depend on adequate specimen collection, absence of inhibitors, and sufficient DNA to be detected. See NG Interp N Performed By: #### N GPCR1, CTPCR #### [place] [address] LABORATORYOrdered By: Daisha Polanco on 01-28-2024 C. [...] 94 mg/dL Normal 70 - 110 mg/dL [facility] Work Phone: Glucose [Mass/Vol] 124 mg/dL High 70 - 110 mg/dL [facility] Work Phone: .Auto Diffon 12-07-2023 Basophil, Absolute 0.0 10 3/mcL Normal 0.0-0.3 [facility] Comment on above: Performed By: #### C BC, CMP, ADIFF, ANEU, LD, GFR ####[address] [address] Basophils/100 WBC (Bld) 0.2 % Normal 0.0-2.5 [facility] Comment on above: Performed By: #### C BC, CMP, ADIFF, ANEU, LD, GFR ####[address] [address] Eosinophil, Absolute 0.1 10 3/mcL Normal 0.0-0.7 [facility] Comment on above: Performed By: #### C BC, CMP, ADIFF, ANEU, LD, GFR ####[address] [address] Eosinophils/100 WBC (Bld) 0.5 % Normal 0.0-6.0 [facility] Comment on above: Performed By: #### C BC, CMP, ADIFF, ANEU, LD, GFR ####[address] [address] Lymphocyte, Absolute 2.4 10 3/mcL Normal 0.9-4.3 [facility] Comment on above: Performed By: #### C BC, CMP, ADIFF, ANEU, LD, GFR ####[address] [address] Lymphocytes/100 WBC (Bld) 14.4 % Low 20.0-40.0 [facility] Comment on above: Performed By: #### C BC, CMP, ADIFF, ANEU, LD, GFR ####[address] [address] Monocyte, Absolute 0.9 10 3/mcL Normal 0.1-1.4 [facility] Comment on above: Performed By: #### C BC, CMP, ADIFF, ANEU, LD, GFR ####[address] [address] Monocytes/100 WBC (Bld) 5.5 % Normal 2.0-13.0 [facility] Comment on above: Performed By: #### C BC, CMP, ADIFF, ANEU, LD, GFR ####[place] [address] [place] [address] Neutrophils/100 WBC (Bld) 79.4 % High 50.0-75.0 [facility] Comment on above: Performed By: #### C BC, CMP, ADIFF, ANEU, LD, GFR ####[place] [address] [place] [address] .GFRon 12-07-2023 GFR >60 [facility] Comment on above: Result Comment: GFR [...] C BC, CMP, ADIFF, ANEU, LD, GFR ####[address] [address] GFR Non- >60 [facility] Comment on above: Result Comment: [...] C BC, CMP, ADIFF, ANEU, LD, GFR ####[place] [address] .NEUABSon 12-07-2023 Neutrophil, Absolute 13.2 10 3/mcL High 2.3-8.1 [facility] Comment on above: Performed By: #### C BC, CMP, ADIFF, ANEU, LD, GFR ####[place] [address] CBCon 12-07-2023 Erythrocyte distribution width (RBC) [Ratio] 14.8 % Normal 11.5-15.5 [facility] Comment on above: Performed By: #### C BC, CMP, ADIFF, ANEU, LD, GFR ####[place] [address] Hematocrit (Bld) [Volume fraction] 29.8 % Low 34.0-46.0 [facility] Comment on above: Performed By: #### C BC, CMP, ADIFF, ANEU, LD, GFR ####[place] [address] Hgb 9.9 G/dL Low 12.0-16.0 [facility] Comment on above: Performed By: #### C BC, CMP, ADIFF, ANEU, LD, GFR ####[place] [address] MCH (RBC) [Entitic mass] 26.5 pg Low 27.0-33.0 [facility] Comment on above: Performed By: #### C BC, CMP, ADIFF, ANEU, LD, GFR ####[place] [address] MCHC 33.2 G/dL Normal 32.0-36.0 [facility] Comment on above: Performed By: #### C BC, CMP, ADIFF, ANEU, LD, GFR ####[place] [address] MCV (RBC) [Entitic vol] 79.7 fL Low 80.0-99.0 [facility] Comment on above: Performed By: #### C BC, CMP, ADIFF, ANEU, LD, GFR ####[address] [address] Platelet 203 10 3/mcL Normal 150-450 [facility] Comment on above: Performed By: #### C BC, CMP, ADIFF, ANEU, LD, GFR ####[address] [address] Platelet mean volume (Bld) [Entitic vol] 8.4 fL Normal 6.6-10.5 [facility] Comment on above: Performed By: #### C BC, CMP, ADIFF, ANEU, LD, GFR ####[place] [address] RBC 3.73 10 6/mcL Low 4.10-5.30 [facility] Comment on above: Performed By: #### C BC, CMP, ADIFF, ANEU, LD, GFR ####[place] [address] WBC 16.7 10 3/mcL High 4.5-10.8 [facility] Comment on above: Performed By: #### C BC, CMP, ADIFF, ANEU, LD, GFR ####[place] [address] CMPon 12-07-2023 Albumin Level 2.1 G/dL Low 3.2-4.8 [facility] Comment on above: Performed By: #### C BC, CMP, ADIFF, ANEU, LD, GFR ####[place] [address] Albumin/Globulin [Mass ratio] 0.7 {ratio} Low 0.9-1.6 [facility] Comment on above: Performed By: #### C BC, CMP, ADIFF, ANEU, LD, GFR ####[address] [address] ALP [Catalytic activity/Vol] 141 U/L High 38-126 [facility] Comment on above: Performed By: #### C BC, CMP, ADIFF, ANEU, LD, GFR ####[place] [id number] ALT [Catalytic activity/Vol] 14 U/L Normal 10-49 [facility] Comment on above: Performed By: #### C BC, CMP, ADIFF, ANEU, LD, GFR ####[address] [address] AST [Catalytic activity/Vol] 23 U/L Normal 8-34 [facility] Comment on above: Performed By: #### C BC, CMP, ADIFF, ANEU, LD, GFR ####[address] [address] Bili Total 0.50 mg/dL Normal 0.20-1.20 [facility] Comment on above: Result Comment: Use of this assay is not recommended for patients undergoing treatment with eltrombopag due to the potential for falsely elevated results. Performed By: #### C BC, CMP, ADIFF, ANEU, LD, GFR ####[address] [address] BUN/Creatinine Ratio 16.7 ratio Normal 10.0-22.0 [facility] Comment on above: Performed By: #### C BC, CMP, ADIFF, ANEU, LD, GFR ####[address] [address] Calcium [Mass/Vol] 8.6 mg/dL Low 8.7-10.4 [facility] Comment on above: Performed By: #### C BC, CMP, ADIFF, ANEU, LD, GFR ####[address] [address] Chloride [Moles/Vol] 108 mmol/L Normal 98-110 [facility] Comment on above: Performed By: #### C BC, CMP, ADIFF, ANEU, LD, GFR ####[address] [address] CO2 [Moles/Vol] 25 mmol/L Normal 22-32 [facility] Comment on above: Performed By: #### C BC, CMP, ADIFF, ANEU, LD, GFR ####[address] [address] Creatinine [Mass/Vol] 0.54 mg/dL Normal 0.50-1.20 [facility] Comment on above: Result Comment: Test ing performed on [employer] CH analyzer using enzymatic creatinine methodology. Performed By: #### C BC, CMP, ADIFF, ANEU, LD, GFR ####[address] [address] Electrolyte Balance 5.0 mEq/L Normal 4.0-15.0 [facility] Comment on above: Performed By: #### C BC, CMP, ADIFF, ANEU, LD, GFR ####[address] [address] Globulin 3.0 G/dL Normal 1.5-3.8 [facility] Comment on above: Performed By: #### C BC, CMP, ADIFF, ANEU, LD, GFR ####[place] [id number] Glucose [Mass/Vol] 90 mg/dL Normal 70-110 [facility] Comment on above: Performed By: #### C BC, CMP, ADIFF, ANEU, LD, GFR ####[place] [address] Potassium [Moles/Vol] 4.0 mmol/L Normal 3.5-5.0 [facility] Comment on above: Performed By: #### C BC, CMP, ADIFF, ANEU, LD, GFR ####[place] [id number] Sodium [Moles/Vol] 138 mmol/L Normal 136-145 [facility] Comment on above: Performed By: #### C BC, CMP, ADIFF, ANEU, LD, GFR ####[place] [address] Total Protein 5.1 G/dL Low 5.7-8.2 [facility] Comment on above: Result Comment: No te - New Reference Range in effect 19 Performed By: #### C BC, CMP, ADIFF, ANEU, LD, GFR ####[place] [id number] Urea nitrogen [Mass/Vol] 9.0 mg/dL Normal 8.0-22.0 [facility] Comment on above: Performed By: #### C BC, CMP, ADIFF, ANEU, LD, GFR ####[facility] [place] [address] FMHon 12-07-2023 Mat. Hemorrhage Negative Normal [facility] Comment on above: Performed By: #### F #### [facility] [address] [place] [address] LABORATORYOrdered By: Beth Swanson on 12-07-2023 Glucose [Mass/Vol] 89 mg/dL Normal 70 - 110 mg/dL [facility] Work Phone: LABORATORYOrdered By: Vania Edwards on 12-07-2023 Blood Glucose Testing Reason Routine (12/07/23 5:34 PM) [facility] Work Phone: Blood Glucose Testing Reason Routine (12/07/23 12:16 PM) [facility] Work Phone: Blood Glucose Testing Reason Routine (12/07/23 8:46 AM) [facility] Work Phone: LABORATORYOrdered By: Christina Marin [...] above: Interpretive Data: T esting performed on DigitalMR analyzer using enzymatic creatinine methodology. Electrolyte Balance [...] (S/P/Bld) [Vol rate/Area] ml/min/1.73sqm Invalid Interpretation Code [employer] [facility] S Comment on above: Interpretive Data: [...] (S/P/Bld) [Vol rate/Area] ml/min/1.73sqm Invalid Interpretation Code [employer] [facility] Comment on above: Interpretive Data: [...] LDHon 12-07-2023 LDH 202 U/L Normal 120-246 [facility] Comment on above: Performed By: #### C BC, CMP, ADIFF, ANEU, LD, GFR ####[place] [address] RPRon 12-07-2023 Reagin Ab RPR Ql (S) Non-Reactive Normal Non-Marion cti [facility] MAIN Comment on above: Result Comment: The [...] A DIFF, RPR, ABOGEL, ABSGEL, CBC, ANEU ####[address] [address] .Auto Diffon 12-06-2023 Basophil, Absolute 0.1 10 3/mcL Normal 0.0-0.3 [facility] Comment on above: Performed By: #### A DIFF, RPR, ABOGEL, ABSGEL, CBC, ANEU #### [address] [address] Basophils/100 WBC (Bld) 0.6 % Normal 0.0-2.5 [facility] Comment on above: Performed By: #### A DIFF, RPR, ABOGEL, ABSGEL, CBC, ANEU #### [address] [address] Eosinophil, Absolute 0.1 10 3/mcL Normal 0.0-0.7 [facility] Comment on above: Performed By: #### A DIFF, RPR, ABOGEL, ABSGEL, CBC, ANEU #### [address] [address] Eosinophils/100 WBC (Bld) 0.9 % Normal 0.0-6.0 [facility] Comment on above: Performed By: #### A DIFF, RPR, ABOGEL, ABSGEL, CBC, ANEU #### [address] [address] Lymphocyte, Absolute 1.9 10 3/mcL Normal 0.9-4.3 [facility] Comment on above: Performed By: #### A DIFF, RPR, ABOGEL, ABSGEL, CBC, ANEU #### [address] [address] Lymphocytes/100 WBC (Bld) 12.5 % Low 20.0-40.0 [facility] Comment on above: Performed By: #### A DIFF, RPR, ABOGEL, ABSGEL, CBC, ANEU #### [address] [address] Monocyte, Absolute 0.7 10 3/mcL Normal 0.1-1.4 [facility] Comment on above: Performed By: #### A DIFF, RPR, ABOGEL, ABSGEL, CBC, ANEU #### [facility] [address] [place] [address] Monocytes/100 WBC (Bld) 4.9 % Normal 2.0-13.0 [facility] Comment on above: Performed By: #### A DIFF, RPR, ABOGEL, ABSGEL, CBC, ANEU #### [place] [address] [place] [address] Neutrophils/100 WBC (Bld) 81.1 % High 50.0-75.0 [facility] Comment on above: Performed By: #### A DIFF, RPR, ABOGEL, ABSGEL, CBC, ANEU #### [address] [address] .GFRon 12-06-2023 GFR >[address] [facility] Comment on above: Result Comment: GFR [...] By: #### L D, CMP, GFR #### [address] [address] GFR Non- >60 [facility] Comment on above: Result Comment: [...] By: #### L D, CMP, GFR #### [address] [address] .NEUABSon 12-06-2023 Neutrophil, Absolute 12.3 10 3/mcL High 2.3-8.1 [facility] Comment on above: Performed By: #### A DIFF, RPR, ABOGEL, ABSGEL, CBC, ANEU #### [place] [address] ABO/Rh (Gel)on 12-06-2023 ABO/Rh Interp Negative Invalid Interpretation Code [facility] Comment on above: Performed By: #### A DIFF, RPR, ABOGEL, ABSGEL, CBC, ANEU #### [place] [address] ABS (Gel)on 12-06-2023 ABSC Interp (Gel) Negative Normal [facility] Comment on above: Performed By: #### A DIFF, RPR, ABOGEL, ABSGEL, CBC, ANEU #### [place] [id number] CBCon 12-06-2023 Erythrocyte distribution width (RBC) [Ratio] 14.8 % Normal 11.5-15.5 [facility] Comment on above: Performed By: #### A DIFF, RPR, ABOGEL, ABSGEL, CBC, ANEU #### [place] [address] Hematocrit (Bld) [Volume fraction] 36.0 % Normal 34.0-46.0 [facility] Comment on above: Performed By: #### A DIFF, RPR, ABOGEL, ABSGEL, CBC, ANEU #### [place] [address] Hgb 12.0 G/dL Normal 12.0-16.0 [facility] Comment on above: Performed By: #### A DIFF, RPR, ABOGEL, ABSGEL, CBC, ANEU #### [place] [address] MCH (RBC) [Entitic mass] 26.7 pg Low 27.0-33.0 [facility] Comment on above: Performed By: #### A DIFF, RPR, ABOGEL, ABSGEL, CBC, ANEU #### [place] [address] MCHC 33.4 G/dL Normal 32.0-36.0 [facility] Comment on above: Performed By: #### A DIFF, RPR, ABOGEL, ABSGEL, CBC, ANEU #### [place] [address] MCV (RBC) [Entitic vol] 79.8 fL Low 80.0-99.0 [facility] Comment on above: Performed By: #### A DIFF, RPR, ABOGEL, ABSGEL, CBC, ANEU #### [place] [address] Platelet 229 10 3/mcL Normal 150-450 [facility] Comment on above: Performed By: #### A DIFF, RPR, ABOGEL, ABSGEL, CBC, ANEU #### [place] [address] Platelet mean volume (Bld) [Entitic vol] 8.4 fL Normal 6.6-10.5 [facility] Comment on above: Performed By: #### A DIFF, RPR, ABOGEL, ABSGEL, CBC, ANEU #### [place] [address] RBC 4.51 10 6/mcL Normal 4.10-5.30 [facility] Comment on above: Performed By: #### A DIFF, RPR, ABOGEL, ABSGEL, CBC, ANEU #### [place] [address] WBC 15.1 10 3/mcL High 4.5-10.8 [facility] Comment on above: Performed By: #### A DIFF, RPR, ABOGEL, ABSGEL, CBC, ANEU #### [place] [address] CMPon 12-06-2023 Albumin Level 2.5 G/dL Low 3.2-4.8 [facility] Comment on above: Performed By: #### L D, CMP, GFR #### [address] [address] Albumin/Globulin [Mass ratio] 0.7 {ratio} Low 0.9-1.6 [facility] Comment on above: Performed By: #### L D, CMP, GFR #### [address] [address] ALP [Catalytic activity/Vol] 174 U/L High 38-126 [facility] Comment on above: Performed By: #### L D, CMP, GFR #### [address] [address] ALT [Catalytic activity/Vol] 16 U/L Normal 10-49 [facility] MAIN Comment on above: Performed By: #### L D, CMP, GFR #### [address] [address] AST [Catalytic activity/Vol] 18 U/L Normal 8-34 [facility] Comment on above: Performed By: #### L D, CMP, GFR #### [address] [address] Bili Total 0.40 mg/dL Normal 0.20-1.20 [facility] Comment on above: Result Comment: Use of this assay is not recommended for patients undergoing treatment with eltrombopag due to the potential for falsely elevated results. Performed By: #### L D, CMP, GFR #### [place] [id number] BUN/Creatinine Ratio 17.6 ratio Normal 10.0-22.0 [facility]IN Comment on above: Performed By: #### L D, CMP, GFR #### [address] [address] Calcium [Mass/Vol] 8.8 mg/dL Normal 8.7-10.4 [facility] Comment on above: Performed By: #### L D, CMP, GFR #### [address] [address] Chloride [Moles/Vol] 106 mmol/L Normal 98-110 [facility] Comment on above: Performed By: #### L D, CMP, GFR #### [address] [address] CO2 [Moles/Vol] 23 mmol/L Normal 22-32 [facility] Comment on above: Performed By: #### L D, CMP, GFR #### [address] [address] Creatinine [Mass/Vol] 0.51 mg/dL Normal 0.50-1.20 [facility] Comment on above: Result Comment: Test ing performed on DigitalMR analyzer using enzymatic creatinine methodology. Performed By: #### L D, CMP, GFR #### [address] [address] Electrolyte Balance 8.0 mEq/L Normal 4.0-15.0 [facility] MA[facility] Comment on above: Performed By: #### L D, CMP, GFR #### [address] [address] Globulin 3.7 G/dL Normal 1.5-3.8 [facility] Comment on above: Performed By: #### L D, CMP, GFR #### [address] [address] Glucose [Mass/Vol] 85 mg/dL Normal 70-110 [facility] MA[facility] Comment on above: Performed By: #### L D, CMP, GFR #### [address] [address] Potassium [Moles/Vol] 3.9 mmol/L Normal 3.5-5.0 [facility] Comment on above: Performed By: #### L D, CMP, GFR #### [address] [address] Sodium [Moles/Vol] 137 mmol/L Normal 136-145 [facility] MA[facility] Comment on above: Performed By: #### L D, CMP, GFR #### [address] [address] Total Protein 6.2 G/dL Normal 5.7-8.2 [facility] Comment on above: Result Comment: No te - New Reference Range in effect 19 Performed By: #### L D, CMP, GFR #### [facility] [address] [place] [address] Urea nitrogen [Mass/Vol] 9.0 mg/dL Normal 8.0-22.0 [facility] Comment on above: Performed By: #### L D, CMP, GFR #### [facility] [address] [place] [address] LABORATORYOrdered By: Cem Gutierrez on 12-06-2023 Appearance [...] above: Interpretive Data: T esting performed on DigitalMR analyzer using enzymatic creatinine methodology. Electrolyte Balance [...] Nom (Bld) O negative (12/06/23 10:13 AM) [facility] Work Phone: Group B Strep Date Performed [id number] [facility] Work Phone: Group B Strep, External Positive (12/06/23 10:13 AM) [facility] Work Phone: Hepatitis B Date Performed [id number] [facility] Work Phone: Hepatitis B, External Negative (12/06/23 10:13 AM) [facility] Work Phone: HIV Antibodies, External Negative (12/06/23 10:13 AM) [facility] Work Phone: RPR, External Nonreactive (12/06/23 10:13 AM) [facility] Work Phone: Rubella, External Immune (12/06/23 10:13 AM) [facility] Work Phone: LABORATORYOrdered By: Nicholas Saldana [...] LDHon 12-06-2023 LDH 177 U/L Normal 120-246 [facility] MA[facility] Comment on above: Performed By: #### L D, CMP, GFR #### [place] [address] No Panel Informationon 12-05 Culture Urine <10,000 cfu/ml. No Significant growth. Sensitivity not indicated. [facility] Work Phone: RPCURon 12-06-2023 U Creatinine 97.7 mg/dL [facility] MAIN Comment on above: Performed By: #### R PCUR ####[place] [address] U Protein 17.3 mg/dL Normal [facility] MAIN Comment on above: Performed By: #### R PCUR ####[place] [address] U Ratio Prot/Creat 0.2 ratio [facility] MAIN Comment on above: Result Comment: resu lt calculated by rule GL_UR_PROT_NOTCALC_OLD (U Protein/U Creatinine) Performed By: #### R PCUR ####[place] [address] UAon 12-06-2023 Color (U) Yellow Normal [facility] MAIN Comment on above: Performed By: #### U AMIC, UA ####[place] [address] Glucose (U) [Mass/Vol] Negative Normal Negative [facility] MAIN Comment on above: Performed By: #### U AMIC, UA ####[place] [address] Ketones Ql (U) 40 mg/dL Abnormal Neg-Trace [facility] MAIN Comment on above: Performed By: #### U AMIC, UA ####[place] [id number] UA Appear Cloudy Abnormal Clear [facility] MAIN Comment on above: Performed By: #### U AMIC, UA ####[place] [address] UA Blood Large Abnormal Neg-Trace [facility] MAIN Comment on above: Performed By: #### U AMIC, UA ####[place] [address] UA Leuk Est Moderate Abnormal Negative [facility] MAIN Comment on above: Performed By: #### U AMIC, UA ####[place] [address] UA Nitrite Negative Normal Negative [facility] MA[facility] Comment on above: Performed By: #### U AMIC, UA ####[place] [address] UA pH 6.0 Normal 5.0 - 8.0 [facility] MA[facility] Comment on above: Performed By: #### U AMIC, UA ####[place] [address] UA Protein Negative Normal Negative [facility] MA[facility] Comment on above: Performed By: #### U AMIC, UA ####[place] [address] UA Spec Grav 1.020 Normal 1.006-1.[address] [place] [address] MAIN Comment on above: Performed By: #### U AMIC, UA ####[place] [address] UA Specimen Type Clean Catch Normal [facility] MAIN Comment on above: Performed By: #### U AMIC, UA ####[place] [address] UA Urobilinogen 1.0 E.U./dL Normal 0.2-1.0 [facility] MAIN Comment on above: Performed By: #### U AMIC, UA ####[place] [address] Urobilinogen (U) [Mass/Vol] Negative Normal Neg-Trace [facility] MAIN Comment on above: Performed By: #### U AMIC, UA ####[address] [place] [address] UAMICon 12-06-2023 UA Bacteria 2+ /hpf Abnormal Negative [facility] MAIN Comment on above: Performed By: #### U AMIC, UA ####[facility] [place] [address] UA RBC 10-20 Abnormal 0-2 [facility] MAIN Comment on above: Performed By: #### U AMIC, UA ####[facility] [place] [address] UA Squam Epithelial 10-20 Normal 0-20 [facility] MAIN Comment on above: Performed By: #### U AMIC, UA ####[facility] [place] [address] UA WBC 25-50 Abnormal 0-5 [facility] MAIN Comment on above: Performed By: #### U AMIC, UA ####[place] [id number] [address] [place] [address] LABORATORYOrdered By: Mariaelena Benavides on 11-15-2023 Group [...] Ql (S) Non-Reactive Normal [facility] ([place]) Comment on above: Result Comment: The [...] Performed By: #### N GPCR1, CTPCR #### [address] [address] .Auto Diffon 09-26-2023 Basophil, Absolute 0.0 10 3/mcL Normal 0.0-0.2 [facility] ([place]) Comment on above: Performed By: #### A KATIA, ADIFF, CBC #### [address] [address] #### RPR #### [address] [address] Basophils/100 WBC (Bld) 0.2 % Normal 0.0-2.5 [facility] ([place] Comment on above: Performed By: #### A KATIA, ADIFF, CBC #### [address] [address] #### RPR #### [address] [address] Eosinophil, Absolute 0.1 10 3/mcL Normal 0.0-0.4 [facility] ([place]) Comment on above: Performed By: #### A KATIA, ADIFF, CBC #### [address] [address] #### RPR #### [address] [address] Eosinophils/100 WBC (Bld) 1.0 % Normal 0.0-7.0 [facility] [place] Comment on above: Performed By: #### A KATIA, ADIFF, CBC #### [address] [address] #### RPR #### [address] [address] Lymphocyte, Absolute 2.0 10 3/mcL Normal 0.8-3.9 [facility] ([place] Comment on above: Performed By: #### A KATIA, ADIFF, CBC #### [address] [address] #### RPR #### [address] [address] Lymphocytes/100 WBC (Bld) 14.8 % Normal 10.0-50.0 [facility] ([place] Comment on above: Performed By: #### A KATIAVIANNEYIFF, CBC #### [address] [address] #### RPR #### [address] [address] Monocyte, Absolute 0.5 10 3/mcL Normal 0.2-1.0 [facility] ([place]) Comment on above: Performed By: #### A KATIA, ADIFF, CBC #### [address] [address] #### RPR #### [address] [address] Monocytes/100 WBC (Bld) 4.0 % Normal 1.7-13.0 [facility] ([place] Comment on above: Performed By: #### A VIANNEY MONTALVOIFF, CBC #### [address] [address] #### RPR #### [address] [address] Neutrophils/100 WBC (Bld) 80.0 % Normal 37.0-80.0 [facility] ([place] Comment on above: Performed By: #### A VIANNEY MONTALVOIFF, CBC #### [address] [address] #### RPR #### [address] [address] .NEUABSon 09-26-2023 Neutrophil, Absolute 10.8 10 3/mcL High 2.9-6.2 A [facility] ([place]) Comment on above: Performed By: #### A KATIA, VIANNEYIFF, CBC #### [address] [address] #### RPR #### [address] [address] ABO/Rh (Gel)on 09-26-2023 ABO/Rh Interp Negative Invalid Interpretation Code [facility] ([place] Comment on above: Performed By: #### N GPCR1, CTPCR #### [address] [address] ABS (Gel)on 09-26-2023 ABSC Interp (Gel) Negative Normal [facility] ([place]) Comment on above: Performed By: #### N GPCR1, CTPCR #### [place] [id number] CBCon 09-26-2023 Erythrocyte distribution width (RBC) [Ratio] 13.8 % Normal 11.5-14.5 [facility] ([place] Comment on above: Performed By: #### A OMAIRA MONTALVO, CBC #### [place] [address] #### RPR #### [place] [address] Hematocrit (Bld) [Volume fraction] 35.2 % Low 37.0-47.0 [facility] ([place] Comment on above: Performed By: #### A OMAIRA MONTALVO, CBC #### [place] [address] #### RPR #### [place] [address] Hgb 11.9 G/dL Low 12.0-16.0 [facility] ([place] Comment on above: Performed By: #### A OMAIRA MONTALVO, CBC #### [place] [address] #### RPR #### [place] [address] MCH (RBC) [Entitic mass] 28.4 pg Normal 27.0-31.2 [facility] ([place] Comment on above: Performed By: #### A OMAIRA MONTALVO, CBC #### [place] [address] #### RPR #### [place] [address] MCHC 33.8 G/dL Normal 33.0-37.0 [facility] ([place] Comment on above: Performed By: #### A OMAIRA MONTALVO, CBC #### [address] [address] #### RPR #### [address] [address] MCV (RBC) [Entitic vol] 84.0 fL Normal 80.0-94.0 [facility] ([place] Comment on above: Performed By: #### A VIANNEY MONTALVOIFF, CBC #### [place] [address] #### RPR #### [address] [address] Platelet 233 10 3/mcL Normal 130-400 [facility] ([place] Comment on above: Performed By: #### A VIANNEY MONTALVOIFF, CBC #### [place] [address] #### RPR #### [place] [address] Platelet mean volume (Bld) [Entitic vol] 8.2 fL Normal 7.4-10.4 [facility] ([place] Comment on above: Performed By: #### A OMAIRA MONTALVO, CBC #### [place] [address] #### RPR #### [place] [address] RBC 4.19 10 6/mcL Low 4.20-5.40 [facility] ([place] Comment on above: Performed By: #### A VIANNEY MONTALVOIFF, CBC #### [place] [id number] #### RPR #### [address] [address] WBC 13.5 10 3/mcL High 4.6-10.8 [facility] ([place] Comment on above: Performed By: #### A VIANNEY MONTALVOIFF, CBC #### [place] [address] #### RPR #### [address] [address] .Auto Diffon 09-23-2023 Basophil, Absolute 0.0 10 3/mcL Normal 0.0-0.2 [facility] ([place] Comment on above: Performed By: #### N GPCR1, CTPCR #### [address] [address] Basophils/100 WBC (Bld) 0.2 % Normal 0.0-2.5 [facility] ([place] Comment on above: Performed By: #### N GPCR1, CTPCR #### [address] [address] Eosinophil, Absolute 0.1 10 3/mcL Normal 0.0-0.4 [facility] ([place] Comment on above: Performed By: #### N GPCR1, CTPCR #### [address] [address] Eosinophils/100 WBC (Bld) 0.8 % Normal 0.0-7.0 [facility] ([place] Comment on above: Performed By: #### N GPCR1, CTPCR #### [address] [address] Lymphocyte, Absolute 2.0 10 3/mcL Normal 0.8-3.9 [facility] ([place] Comment on above: Performed By: #### N GPCR1, CTPCR #### [address] [address] Lymphocytes/100 WBC (Bld) 13.1 % Normal 10.0-50.0 [facility] ([place] Comment on above: Performed By: #### N GPCR1, CTPCR #### [address] [address] Monocyte, Absolute 0.7 10 3/mcL Normal 0.2-1.0 [facility] ([place]) Comment on above: Performed By: #### N GPCR1, CTPCR #### [address] [address] Monocytes/100 WBC (Bld) 4.9 % Normal 1.7-13.0 [facility] ([place] Comment on above: Performed By: #### N GPCR1, CTPCR #### [address] [address] Neutrophils/100 WBC (Bld) 81.0 % High 37.0-80.0 [facility] ([place] Comment on above: Performed By: #### N GPCR1, CTPCR #### [address] [address] .GFRon 09-23-2023 GFR Non- 111 ml/min/1.73sqm Normal [facility] ([place] Comment on above: Result Comment: GFR Population [...] Performed By: #### N GPCR1, CTPCR #### [address] [address] GFR 135 ml/min/1.73sqm Normal [facility] ([place] Comment on above: Result Comment: GFR Population [...] Performed By: #### N GPCR1, CTPCR #### [address] [address] .MDWon 09-23-2023 Monocyte Distribution Width 15.44 Normal 0.00-20.00 [facility] ([place] Comment on above: Result Comment: For ED adult patients suspected of sepsis, MDW<=20.0 does not rule out sepsis or risk of sepsis Performed By: #### N GPCR1, CTPCR #### [place] [address] .NEUABSon 09-23-2023 Neutrophil, Absolute 12.2 10 3/mcL High 2.9-6.2 A [facility] ([place]) Comment on above: Performed By: #### N GPCR1, CTPCR #### [place] [address] BMPon 09-23-2023 BUN/Creatinine Ratio 16 ratio Normal 7-27 [facility] ([place]) Comment on above: Performed By: #### N GPCR1, CTPCR #### [place] [address] Calcium [Mass/Vol] 9.1 mg/dL Normal 8.4-10.2 [facility] ([place]) Comment on above: Performed By: #### N GPCR1, CTPCR #### [place] [address] Chloride [Moles/Vol] 102 mmol/L Normal 98-107 [facility] ([place]) Comment on above: Performed By: #### N GPCR1, CTPCR #### [place] [address] CO2 [Moles/Vol] 27 mmol/L Normal 22-29 [facility] ([place] Comment on above: Performed By: #### N GPCR1, CTPCR #### [place] [address] Creatinine [Mass/Vol] 0.61 mg/dL Normal 0.55-1.02 [facility] ([place] Comment on above: Performed By: #### N GPCR1, CTPCR #### [place] [address] Electrolyte Balance 7.0 mEq/L Normal 4.0-15.0 [facility] ([place]) Comment on above: Performed By: #### N GPCR1, CTPCR #### [address] [address] Glucose [Mass/Vol] 124 mg/dL High 70-105 [facility] ([place]) Comment on above: Performed By: #### N GPCR1, CTPCR #### [address] [address] Potassium [Moles/Vol] 3.7 mmol/L Normal 3.5-5.1 [facility] ([place] Comment on above: Performed By: #### N GPCR1, CTPCR #### [address] [address] Sodium [Moles/Vol] 136 mmol/L Normal 136-145 [facility] ([place]) Comment on above: Performed By: #### N GPCR1, CTPCR #### [place] [id number] Urea nitrogen [Mass/Vol] 10 mg/dL Normal 7-18 [facility] ([place] Comment on above: Performed By: #### N GPCR1, CTPCR #### [address] [address] CBCon 09-23-2023 Erythrocyte distribution width (RBC) [Ratio] 13.9 % Normal 11.5-14.5 [facility] ([place] Comment on above: Performed By: #### N GPCR1, CTPCR #### [address] [address] Hematocrit (Bld) [Volume fraction] 35.5 % Low 37.0-47.0 [facility] ([place] Comment on above: Performed By: #### N GPCR1, CTPCR #### [address] [address] Hgb 11.9 G/dL Low 12.0-16.0 [facility] ([place] Comment on above: Performed By: #### N GPCR1, CTPCR #### [address] [address] MCH (RBC) [Entitic mass] 28.2 pg Normal 27.0-31.2 [facility] ([place] Comment on above: Performed By: #### N GPCR1, CTPCR #### [place] [address] MCHC 33.7 G/dL Normal 33.0-37.0 [facility] ([place] Comment on above: Performed By: #### N GPCR1, CTPCR #### [place] [id number] MCV (RBC) [Entitic vol] 83.8 fL Normal 80.0-94.0 [facility] ([place] Comment on above: Performed By: #### N GPCR1, CTPCR #### [place] [id number] Platelet 229 10 3/mcL Normal 130-400 [facility] ([place] Comment on above: Performed By: #### N GPCR1, CTPCR #### [place] [address] Platelet mean volume (Bld) [Entitic vol] 7.8 fL Normal 7.4-10.4 [facility] ([place] Comment on above: Performed By: #### N GPCR1, CTPCR #### [place] [id number] RBC 4.23 10 6/mcL Normal 4.20-5.40 [facility] ([place] Comment on above: Performed By: #### N GPCR1, CTPCR #### [place] [id number] WBC 15.1 10 3/mcL High 4.6-10.8 [facility] ([place]) Comment on above: Performed By: #### N GPCR1, CTPCR #### [place] [address] DIMERon 09-23-2023 D-Dimer <200 Normal 0-230 [facility] ([place] Comment on above: Result Comment: DDN: Results [...] Performed By: #### N GPCR1, CTPCR #### [place] [address] LABORATORYOrdered By: Vikki Carballo on 09-23-2023 Fibrin [...] a homogeneous sandwich chemiluminescent immunoassay based on [employer] technology. Urea nitrogen [Mass/Vol] 10 mg/dL Normal 7 - 18 mg/dL AO ADM SS Urea nitrogen/Creatinine [Mass ratio] 16 ratio Normal 7 - 27 ratio AO ADM SS WBC (Bld) [#/Vol] 15.1 103/mcL High 4.6 - 10.8 10^3/mcL AO Workflow SS MGon 09-23-2023 Magnesium [Mass/Vol] 1.7 mg/dL Low 1.8-2.4 [facility] ([place]) Comment on above: Performed By: #### N GPCR1, CTPCR #### [place] [address] TROPHSon 09-23-2023 High Sensitivity Troponin I 5 ng/L Normal 0-51 [facility] ([place]) Comment on above: Result Comment: High Sensitive Troponin I Reference Ranges: Female: 0-51 ng/L Male: 0-76 ng/L Testing performed on Edif[employer] using a homogeneous sandwich chemiluminescent immunoassay based on [employer] technology. Performed By: #### N GPCR1, CTPCR #### [place] [address] XR CHEST 2 VIEWSon 4 XR CHEST [...] 09/23/2023 5:03:58 PM Ordering Provider: RAYNE Antoine [facility] ([place]) CTPCRon 06-18-2023 C. trachomatis Interp Normal See CT Interp N [facility] ([place]) Comment on above: Result Comment: C. t rachomatis DNA not detected. Specimen is presumptive negative for C. trachomatis. A negative result does not preclude C. trachomatis infection because results depend on adequate specimen collection, absence of inhibitors, and sufficient DNA to be detected. See CT Interp N Performed By: #### N GPCR1, CTPCR #### [address] [address] C.trachomatis PCR Negative Normal Negative [facility] ([place] Comment on above: Result Comment: Mole cular (PCR) assay performed on the [employer] system. Performed By: #### N GPCR1, CTPCR #### [address] [address] Chlam Source Vaginal Normal [facility] ([place] Comment on above: Performed By: #### N GPCR1, CTPCR #### [address] [address] [id number] 06-18-2023 GC PCR Source Vaginal Normal [facility] ([place] Comment on above: Performed By: #### N GPCR1, CTPCR #### [address] [address] N. gonorrhoeae (PCR) Negative Normal Negative [facility] ([place]) Comment on above: Result Comment: Mole cular (PCR) assay performed on the [employer] System. Performed By: #### N GPCR1, CTPCR #### [address] [address] N. gonorrhoeae Interp Normal See NG Interp N [facility] ([place]) Comment on above: Result Comment: N. g onorrhoeae DNA not detected. Specimen is presumptive negative for N. gonorrhoeae. A negative result does not preclude Neisseria gonorrhoeae infection because results depend on adequate specimen collection, absence of inhibitors, and sufficient DNA to be detected. See NG Michellep N Performed By: #### N GPCR1, CTPCR #### [place] [address] RPRon 06-15-2023 Reagin Ab RPR Ql (S) Non-Reactive Normal [facility] ([place] Comment on above: Result Comment: The RPR [...] Performed By: #### N GPCR1, CTPCR #### [place] [address] RUBISon 06-15-[address] Positive Normal Positive [facility] ([place] Comment on above: Result Comment: This immune status assay detects IgM and/or IgG antibody to Rubella. Interpret results in conjunction with clinical history. POS: Antibody detected; exposure at undetermined recent or distant time. If clinically indicated, order Rubella IGM to rule out recent infection. NEG: No antibody detected. Performed By: #### N GPCR1, CTPCR #### [place] [address] .Auto Diffon 06-14-2023 Basophil, Absolute 0.0 10 3/mcL Normal 0.0-0.2 [facility] ([place]) Comment on above: Performed By: #### N GPCR1, CTPCR #### [place] [address] Basophils/100 WBC (Bld) 0.1 % Normal 0.0-2.5 [facility] ([place] Comment on above: Performed By: #### N GPCR1, CTPCR #### [facility] [address] [place], [place] [address] Eosinophil, Absolute 0.2 10 3/mcL Normal 0.0-0.4 [facility] ([place]) Comment on above: Performed By: #### N GPCR1, CTPCR #### [address] [address] Eosinophils/100 WBC (Bld) 1.5 % Normal 0.0-7.0 [facility] ([place] Comment on above: Performed By: #### N GPCR1, CTPCR #### [address] [address] Lymphocyte, Absolute 2.4 10 3/mcL Normal 0.8-3.9 [facility] ([place] Comment on above: Performed By: #### N GPCR1, CTPCR #### [address] [address] Lymphocytes/100 WBC (Bld) 21.2 % Normal 10.0-50.0 [facility] ([place] Comment on above: Performed By: #### N GPCR1, CTPCR #### [address] [address] Monocyte, Absolute 0.6 10 3/mcL Normal 0.2-1.0 [facility] ([place]) Comment on above: Performed By: #### N GPCR1, CTPCR #### [address] [address] Monocytes/100 WBC (Bld) 5.3 % Normal 1.7-13.0 [facility] ([place] Comment on above: Performed By: #### N GPCR1, CTPCR #### [address] [address] Neutrophils/100 WBC (Bld) 71.9 % Normal 37.0-80.0 [facility] ([place] Comment on above: Performed By: #### N GPCR1, CTPCR #### [address] [address] .NEUABSon 06-14-2023 Neutrophil, Absolute 8.2 10 3/mcL High 2.9-6.2 [facility] ([place] Comment on above: Performed By: #### N GPCR1, CTPCR #### [address] [address] ABO/Rh (Gel)on 06-14-2023 ABO/Rh Interp Negative Invalid Interpretation Code [facility] ([place] Comment on above: Performed By: #### N GPCR1, CTPCR #### [place] [id number] ABS (Gel)on 06-14-2023 ABSC Interp (Gel) Negative Normal [facility] ([place] Comment on above: Performed By: #### N GPCR1, CTPCR #### [place] [id number] CBCon 06-14-2023 Erythrocyte distribution width (RBC) [Ratio] 13.7 % Normal 11.5-14.5 [facility] ([place] Comment on above: Performed By: #### N GPCR1, CTPCR #### [place] [address] Hematocrit (Bld) [Volume fraction] 36.5 % Low 37.0-47.0 [facility] ([place] Comment on above: Performed By: #### N GPCR1, CTPCR #### [place] [address] Hgb 12.7 G/dL Normal 12.0-16.0 [facility] ([place] Comment on above: Performed By: #### N GPCR1, CTPCR #### [place] [address] MCH (RBC) [Entitic mass] 28.4 pg Normal 27.0-31.2 [facility] ([place] Comment on above: Performed By: #### N GPCR1, CTPCR #### [place] [address] MCHC 34.6 G/dL Normal 33.0-37.0 [facility] ([place] Comment on above: Performed By: #### N GPCR1, CTPCR #### [place] [address] MCV (RBC) [Entitic vol] 82.1 fL Normal 80.0-94.0 [facility] ([place] Comment on above: Performed By: #### N GPCR1, CTPCR #### [address] [address] Platelet 249 10 3/mcL Normal 130-400 [facility] ([place] Comment on above: Performed By: #### N GPCR1, CTPCR #### [address] [address] Platelet mean volume (Bld) [Entitic vol] 8.2 fL Normal 7.4-10.4 [facility] ([place] Comment on above: Performed By: #### N GPCR1, CTPCR #### [place] [place] [address] RBC 4.45 10 6/mcL Normal [facility]20-5.40 [facility] [place] Comment on above: Performed By: #### N GPCR1, CTPCR #### [address] [address] WBC 11.4 10 3/mcL High 4.6-10.8 [facility] Comment on above: Performed By: #### N GPCR1, CTPCR #### [address] [address] HBSAGon 06-14-2023 Hep B Surf Ag Non-Reactive Normal Non-Reacti ve [facility] ([place] Comment on above: Performed By: #### N GPCR1, CTPCR #### [address] [address] LABORATORYOrdered By: Cynthia Tena on 06-14-2023 ABO [...] SS Laboratory - Specimen inform ationOrdered By: Anel Lewis on 06-14-2023 Specimen source Nom (Unsp spec) Vaginal (06/14/23 9:04 AM) Normal Auto Viro/Sero SS HCGQon 04-16-2023 hCG, quantitative 5156.0 mIU/mL Normal [facility] ([place]) Comment on above: Result Comment: HCG Levels [...] Performed By: #### N GPCR1, CTPCR #### [place] [address] LABORATORYOrdered By: SYSTEM SYSTEM on 04-16-2023 HCG [...] HCGQon 04-12-2023 hCG, quantitative 2428.8 mIU/mL Normal [facility] ([place]) Comment on above: Result Comment: HCG Levels [...] Performed By: #### N GPCR1, CTPCR #### [place] [address] LABORATORYOrdered By: SYSTEM SYSTEM on 04-12-2023 HCG [...] mIU/mL HCGQon 03-14-2023 hCG, quantitative <1.0 Normal [facility] Comment on above: Result Comment: HCG Levels [...] Performed By: #### N GPCR1, CTPCR #### [place] [address] LABORATORYOrdered By: SYSTEM SYSTEM on 03-14-2023 HCG [...] HCGQon 03-08-2023 hCG, quantitative 5.2 mIU/mL [facility] [place] Comment on above: Result Comment: HCG Levels [...] Performed By: #### N GPCR1, CTPCR #### [place] [address] CTPCRon 01-07-2023 C. trachomatis Interp Normal See CT Interp N [facility] ([place] Comment on above: Result Comment: C. t rachomatis DNA not detected. Specimen is presumptive negative for C. trachomatis. A negative result does not preclude C. trachomatis infection because results depend on adequate specimen collection, absence of inhibitors, and sufficient DNA to be detected. See CT Interp N Performed By: #### N GPCR1, CTPCR #### [address] [address] C.trachomatis PCR Negative Normal Negative [facility] Comment on above: Result Comment: Mole arronar (PCR) assay performed on the [employer] system. Performed By: #### N GPCR1, CTPCR #### [facility] [address] [place] [id number] [place] Source Cervix Normal [facility] ([place] Comment on above: Performed By: #### N GPCR1, CTPCR #### [address] [address] [id number] 01-07-2023 GC PCR Source Cervix Normal [facility] ([place] Comment on above: Performed By: #### N GPCR1, CTPCR #### [address] [address] N. gonorrhoeae (PCR) Negative Normal Negative [facility] ([place]) Comment on above: Result Comment: Mole cular (PCR) assay performed on the [employer] System. Performed By: #### N GPCR1, CTPCR #### [address] [address] N. gonorrhoeae Interp Normal See NG Interp N [facility] [place] Comment on above: Result Comment: N. g onorrhoeae DNA not detected. Specimen is presumptive negative for N. gonorrhoeae. A negative result does not preclude Neisseria gonorrhoeae infection because results depend on adequate specimen collection, absence of inhibitors, and sufficient DNA to be detected. See NG Interp N Performed By: #### N GPCR1, CTPCR #### [place] [address] RPRon 01-05-2023 Reagin Ab RPR Ql (S) Non-Reactive Normal Non-Caron cti ve [facility] [place] Comment on above: Result Comment: The RPR [...] By: #### H CV1, RPR, HBSAG #### [place] [address] [place] [address] HBSAGon 01-04-2023 Hep B Surf Ag Non-Reactive Normal Non-Reacti [facility] ([place]) Comment on above: Performed By: #### H CV1, RPR, HBSAG #### [place] [id number] HCVon 01-04-2023 Hep C Ab Non-Reactive Normal Non-Reacti [facility] ([place] Comment on above: Performed By: #### H CV1, RPR, HBSAG #### [place] [address] Hep C Ab Int Normal [facility] ([place] Comment on above: Result Comment: Nonr eactive: Samples with a value < 0.80 are considered nonreactive (negative) for antibodies to HCV. A negative test result does not exclude the possibility of exposure to or infection with HCV. HCV antibodies may be undetectable in some stages of the infection and in some clinical conditions. See Interp Performed By: #### H CV1, RPR, HBSAG #### [place] [address] HIVon 01-04-2023 HIV 1/2 Ab Non-Reactive Normal Non-Reacti [facility] ([place]) Comment on above: Result Comment: Spec hayley is negative for anti-HIV-1 and anti-HIV-2. Performed By: #### N GPCR1, CTPCR #### [place] [address] [facility] CNPN Telephone ([id number]) DORY HENDERSON ([id number]) 1985 F Date Time Provider Department 12/14/22 [...] Status:Closed by FLORY TIMMONS on 12/14/22 Normal [facility] LABORATORYOrdered By: SYSTEM SYSTEM on 08-03-2022 [...] Auto (Unsp spec) [#/Vol] 0.42 10*3/uL 0.83-4.51 [facility] Basophil percentageOrdered B y: Dr. Zazueta on 05-17-2022 Basophils/100 WBC (Bld) 0.2 % 0-1 [facility] Chloride [Moles/Vol] 98 mmol/L 98-107 [facility] Eosinophils/100 WBC (Bld) 0.1 % 0-5 [facility] Glucose [Mass/Vol] 190 mg/dL 74-106 [facility] Comment on above: Fasting Glucose resu lt greater than or equal to 126 mg/dL suggests DIABETES MELLITUS per A.D.A. criteria. Neutrophils (Bld) [#/Vol] 15.4 10*3/uL 2.0-7.7 [facility] Neutrophils/100 WBC (Bld) 93.9 % 47-70 [facility] Potassium [Moles/Vol] 3.6 mmol/L 3.5-5.1 [facility] Sodium [Moles/Vol] 135 mmol/L 136-145 [facility] WBC (Bld) [#/Vol] 16.4 10*3/uL 4.4-11.0 [facility] Blood erythrocytes count (nu mber/volume)Ordered By: Dr. Zazueta on 05-17-2022 RBC (Bld) [#/Vol] 5.81 10*6/uL 4.2-5.4 [facility] Blood hemoglobin measurement (mass/volume)Ordered By: Dr. Zazueta on 05-17-2022 Hemoglobin (Bld) [Mass/Vol] 15.1 g/dL 12.0-15.0 [facility] Blood lymphocytes/100 leukoc ytesOrdered By: Dr. Zazueta on 05-17-2022 Lymphocytes/100 WBC (Bld) 2.6 % 19-41 [facility] Blood monocytes/100 leukocyt esOrdered By: Dr. Zazueta on 05-17-2022 Monocytes/100 WBC (Bld) 2.3 % 0-10 [facility] Blood platelet mean volumeOr dered By: Dr. Zazueta on 05-17-2022 Platelet mean volume (Bld) [Entitic vol] 10.2 fL 6.2-12.0 [facility] Determination of erythrocyte mean corpuscular volume (MCV)Ordered By: Dr. Zazueta on 05-17-2022 MCV (RBC) [Entitic vol] 79.9 fL 81-99 [facility] Hematocrit Auto (Bld) [Volum e fraction]Ordered By: Dr. Zazueta on 05-17-2022 Hematocrit (Bld) [Volume fraction] 46.4 % 37-47 [facility] Laboratory - Chemistry and C hemistry - challengeOrdered By: Dr. Zazueta on 05-17-2022 CO2 [Moles/Vol] 26.0 mmol/L 21.0-32.0 [facility] Urea nitrogen/Creatinine [Mass ratio] 17.7 mg/mg 10-20 [facility] Laboratory - Hematology and Cell countsOrdered By: Dr. Zazueta on 05-17-2022 Erythrocyte distribution width (RBC) [Entitic vol] 39.9 fL 35.1-43.9 [facility] Erythrocyte distribution width (RBC) [Ratio] 13.9 % 11.6-14.6 [facility] Immature granulocytes/100 WBC (Bld) 0.900 % 0.0-0.9 [facility] Comment on above: IG% - Immature Granu locytes (promyelocytes, myelocytes and metamyelocytes) > 1% indicates that a LEFT SHIFT is Present. MCH (RBC) [Entitic mass] 26.0 pg 27.0-32.0 [facility] Nucleated RBC/100 WBC (Bld) [Ratio] 0 % 0-5 [facility] MCHC Auto (RBC) [Mass/Vol]Or dered By: Dr. Zazueta on 05-17-2022 MCHC (RBC) [Mass/Vol] 32.5 g/dL 32-36 [facility] No Panel InformationOrdered By: Dr. Zazueta on 05-17-2022 Estimated Creatinine Clearance Calc 85.83 ml/min [facility] Estimated GFR (MDRD) Amer 106 mL/min >60 [facility] Comment on above: GFR Calc Estimated GFR (MDRD) Non-Af Amer 88 mL/min >60 [facility] Comment on above: Non- GFR Calc Platelets bldOrdered By: Dr. Zazueta on 05-17-2022 Platelets (Bld) [#/Vol] 331 10*3/uL 150-450 [facility] Serum or plasma calcium chayito urement (mass/volume)Ordered By: Dr. Zazueta on 05-17-2022 Calcium [Mass/Vol] 9.2 mg/dL 8.5-10.1 [facility] Serum or plasma creatinine m easurement (mass/volume)Ordered By: Dr. Zazueta on 05-17-2022 Creatinine [Mass/Vol] 0.79 mg/dL 0.55-1.02 [facility] Comment on above: The validity of the calculated GFR & GFRAA in patients over 70 years has not been determined. Clinical correlation is essential. Serum or plasma urea nitroge n measurement (mass/volume)Ordered By: Dr. Zazueta on 05-17-2022 Urea nitrogen [Mass/Vol] 14 mg/dL 09-19 [facility] Thin prep Papanicolaou smear with manual screeningOrdered By: Dr. Zazueta on 05-17-2022 Thin prep Papanicolaou smear with manual screening 07-17 [facility] Laboratory - Chemistry and C hemistry - challengeon 03-23-2022 HCG ( test) Ql (U) Negative [facility] Bilirubin Ql (U) Negative [facility] Glucose Ql (U) Negative [facility] Ketones Ql (U) Negative [facility] pH (U) 5.0 [pH] [facility] Specific gravity (U) [Rel density] 1.005 [facility] Urobilinogen (U) [Mass/Vol] Negative [facility] Laboratory - Hematology and Cell countson 03-23-2022 Hemoglobin Ql (U) Negative [facility] Laboratory - Specimen inform ationon 03-23-2022 Clarity (U) Clear [facility] Color (U) Yellow [facility] Laboratory - Urinalysison Nitrite Ql (U) Negative [facility] Protein Ql (U) Negative [facility] No Panel Informationon 03-23 Urine Leukocytes Negatve [facility] Urine Non-Hemolyzed Blood Negative [facility] LABORATORYOrdered By: Daisha Polanco on 01-10-2022 [...] reportable diseaseResults have been reported to the [place] [facility] Invalid Interpretation Code See [...] percentageon 2021 Bilirubin [Mass/Vol] 0.50 mg/dL 0.20-1.00 [facility] Work Phone: Comment on above: For patients on eltr ombopag therapy, use of Dimension [place] TBIL is not recommended. Chloride [Moles/Vol] 104 mmol/L 98-107 [facility] Work Phone: Cholesterol [Mass/Vol] 189 mg/dL <200 [facility] Work Phone: Comment on above: <200 mg/dL Desirable 200-240 mg/dL Borderline >240 mg/dL High Risk Glucose [Mass/Vol] 135 mg/dL 74-106 [facility] Work Phone: Comment on above: Fasting Glucose resu lt greater than or equal to 126 mg/dL suggests DIABETES MELLITUS per A.D.A. criteria. Potassium [Moles/Vol] 4.0 mmol/L 3.5-5.1 [facility] Work Phone: Protein [Mass/Vol] 8.1 g/dL 6.4-8.2 [facility] Work Phone: Sodium [Moles/Vol] 138 mmol/L 136-145 [facility] Work Phone: Triglyceride [Mass/Vol] 150 mg/dL <199 [facility] Work Phone: Comment on above: The drugs N-Acetylcy steine and Metamizole may falsely depress this assay.Serum Triglycerides Reference Interval Normal <150 mg/dL Borderline high 150 - 199 mg/dL High 200 - 499 mg/dL Very High > or = 500 mg/dL Direct bilirubinon 2 Bilirubin.direct [Mass/Vol] 0.07 mg/dL 0.00-0.30 [facility] Work Phone: Laboratory - Chemistry and C hemistry - challengeon 11-25-2021 ALP [Catalytic activity/Vol] 111 U/L 45-117 [facility] Work Phone: ALT [Catalytic activity/Vol] 30 U/L 13-56 [facility] Work Phone: CO2 [Moles/Vol] 27.0 mmol/L 21.0-32.0 [facility] Work Phone: Globulin (S) [Mass/Vol] 4.5 g/dL 2.2-4.2 [facility] Work Phone: Urea nitrogen/Creatinine [Mass ratio] 13.8 mg/mg 10-20 [facility] Work Phone: No Panel Informationon 11-25 Estimated GFR (MDRD) Amer 95 mL/min >60 [facility] Work Phone: Comment on above: GFR Calc Estimated GFR (MDRD) Non-Af Amer 79 mL/min >60 [facility] Work Phone: Comment on above: Non- GFR Calc Serum or plasma albumin chayito urement (mass/volume)on 11-25-2021 Albumin [Mass/Vol] 3.6 g/dL 3.2-5.0 [facility] Work Phone: Serum or plasma calcium chayito urement (mass/volume)on 11-25-2021 Calcium [Mass/Vol] 9.2 mg/dL 8.5-10.1 [facility] Work Phone: Serum or plasma cholesterol in HDL measurement (mass/volume)on 11-25-2021 Cholesterol in HDL [Mass/Vol] 39 mg/dL >40 [facility] Work Phone: Comment on above: The drugs N-Acetylcy steine and Metamizole may falsely depress this assay. Reference Range HDL <40 mg/dL Low HDL Cholesterol HDL >or= 60 mg/dL High HDL Cholesterol Serum or plasma cholesterol in VLDL measurement (mass/volume)on 11-25-2021 Cholesterol in VLDL [Mass/Vol] 30 mg/dL 5-40 [facility] Work Phone: Serum or plasma creatinine m easurement (mass/volume)on 11-25-2021 Creatinine [Mass/Vol] 0.87 mg/dL 0.55-1.02 [facility] Work Phone: Comment on above: The validity of the calculated GFR & GFRAA in patients over 70 years has not been determined. Clinical correlation is essential. Serum or plasma low density lipoprotein (LDL) cholesterol measurement (mass/volume)on 11-25-2021 Cholesterol in LDL [Mass/Vol] 120 mg/dL 0-130 [facility] Work Phone: Serum or plasma urea nitroge n measurement (mass/volume)on 11-25-2021 Urea nitrogen [Mass/Vol] 12 mg/dL 7-18 [facility] Work Phone: Thin prep Papanicolaou smear with manual screeningon 11-25-2021 Thin prep Papanicolaou smear with manual screening 10 U/L 15-37 [facility] Work Phone: Thin prep Papanicolaou smear with manual screening 7 5-15 [facility] Work Phone: LABORATORYOrdered By: Dian Damico [...] Invalid Interpretation Code 70 - 110 mg/dL [facility] Work Phone: LABORATORYOrdered By: Mariaelena Benavides on [...] Invalid Interpretation Code 70 - 110 mg/dL [facility] Work Phone: Comment on above: Result Comment: [...] Invalid Interpretation Code 70 - 110 mg/dL [facility] Work Phone: LABORATORYOrdered By: Lucy Vizcaino on [...] No Panel Information Respiratory Panel (PCR) Rhinovirus [facility] Work Phone: Vital Signs Date Time Vital Sign Value Performing Clinician Faci lit 05-01-2024 09:20-0500 Diastolic Blood Pressure Non-Invasive 78 mm[Hg] GEORGE DE OLIVEIRA MD [facility] 05-01-2024 09:20-0500 Heart rate 93 /min GEORGE DE OLIVEIRA MD [facility] 05-01-2024 09:20-0500 Respiratory rate 20 /min GEORGE DE OLIVEIRA MD [facility] 05-01-2024 09:20-0500 Systolic Blood Pressure Non-Invasive 133 mm[Hg] GEORGE DE OLIVEIRA MD [facility] 05-01-2024 09:05-0500 Diastolic Blood Pressure Non-Invasive 70 mm[Hg] GEORGE DE OLIVEIRA MD [facility] 05-01-2024 09:05-0500 Heart rate 83 /min GEORGE DE OLIVEIRA MD [facility] 05-01-2024 09:05-0500 Respiratory rate 13 /min GEORGE DE OLIVEIRA MD [facility] 05-01-2024 09:05-0500 Systolic Blood Pressure Non-Invasive 126 mm[Hg] GEORGE DE OLIVEIRA MD [facility] 05-01-2024 08:50-0500 Diastolic Blood Pressure Non-Invasive 88 mm[Hg] GEORGE DE OLIVEIRA MD [facility] 05-01-2024 08:50-0500 Heart rate 81 /min GEORGE DE OLIVEIRA MD [facility] 05-01-2024 08:50-0500 Respiratory rate 15 /min GEORGE DE OLIVEIRA MD [facility] 05-01-2024 08:50-0500 Systolic Blood Pressure Non-Invasive 140 mm[Hg] GEORGE DE OLIVEIRA MD [facility] 05-01-2024 08:20-0500 Body temperature 99.32 [degF] GEORGE DE OLIVEIRA MD [facility] 05-01-2024 08:15-0500 Respiratory Rate - Anes 0 br/min GEORGE DE OLIVEIRA MD [facility] 05-01-2024 08:10-0500 Respiratory Rate - Anes 17 br/min GEORGE DE OLIVEIRA MD [facility] 05-01-2024 08:05-0500 Respiratory Rate - Anes 12 br/min GEORGE DE OLIVEIRA MD [facility] 05-01-2024 06:30-0500 Body height 163 cm GEORGE DE OLIVEIRA MD [facility] 05-01-2024 06:30-0500 Body temperature 96.62 [degF] GEORGE DE OLIVEIRA MD [facility] 05-01-2024 06:30-0500 Body weight 122 kg GEORGE DE OLIVEIRA MD [facility] 05-01-2024 06:30-0500 Heart rate 93 /min GEORGE DE OLIVEIRA MD [facility] 04-22-2024 09:15-0500 Blood Pressure Cuff Size GEORGE DE OLIVEIRA MD [facility] 04-22-2024 09:15-0500 Blood Pressure Location GEORGE DE OLIVEIRA MD [facility] 04-22-2024 09:15-0500 Blood Pressure Method GEORGE DE OLIVEIRA MD [facility] 04-22-2024 09:15-0500 Body height 162.6 cm GEORGE DE OLIVEIRA MD [facility] 04-22-2024 09:15-0500 Body weight 121.5 kg GEORGE DE OLIVEIRA MD [facility] 04-22-2024 09:15-0500 Body weight 45.96 kg/m2 GEORGE DE OLIVEIRA MD [facility] 04-22-2024 09:15-0500 Diastolic Blood Pressure Non-Invasive 105 mm[Hg] GEORGE DE OLIVEIRA MD [facility] 04-22-2024 09:15-0500 Heart rate 79 /min GEORGE DE OLIVEIRA MD [facility] 04-22-2024 09:15-0500 Systolic Blood Pressure Non-Invasive 163 mm[Hg] GEORGE DE OLIVEIRA MD [facility] 12-08-2023 07:52-0400 Body temperature 97.88 [degF] DR KAREY JARVIS MD [address] [place] [address] 12-08-2023 07:52-0400 Diastolic Blood Pressure Non-Invasive 68 mm[Hg] DR KAREY JARVIS MD [address] 12-08-2023 07:52-0400 Heart rate 80 /min DR KAREY JARVIS MD [address] [place] [address] 12-08-2023 07:52-0400 Respiratory rate 16 /min DR KAREY JARVIS MD [address] 12-08-2023 07:52-0400 Systolic Blood Pressure Non-Invasive 128 mm[Hg] DR KAREY JARVIS MD [address] 12-08-2023 00:15-0400 Body temperature 97.88 [degF] DR KAREY JARVIS MD [address] [place] [address] 12-08-2023 00:15-0400 Diastolic Blood Pressure Non-Invasive 82 mm[Hg] DR KAREY JARVIS MD [address] 12-08-2023 00:15-0400 Heart rate 88 /min DR KAREY JARVIS MD [address] 12-08-2023 00:15-0400 Reason For Taking VItal Signs DR KAREY JARVIS MD [address] [place] [address] 12-08-2023 00:15-0400 Respiratory rate 16 /min DR KAREY JARVIS MD [address] 12-08-2023 00:15-0400 Systolic Blood Pressure Non-Invasive 138 mm[Hg] DR KAREY JARVIS MD [address] [place] [address] 12-07-2023 15:30-0400 Body temperature 97.88 [degF] DR KAREY JARVIS MD [address] [place] [address] 12-07-2023 15:30-0400 Diastolic Blood Pressure Non-Invasive 80 mm[Hg] DR KAREY JARVIS MD [facility] 12-07-2023 15:30-0400 Heart rate 100 /min DR KAREY JARVIS MD [facility] 12-07-2023 15:30-0400 Reason For Taking VItal Signs DR KAREY JARVIS MD [facility] 12-07-2023 15:30-0400 Respiratory rate 16 /min DR KAREY JARVIS MD [facility] 12-07-2023 15:30-0400 Systolic Blood Pressure Non-Invasive 130 mm[Hg] DR KAREY JARVIS MD [facility] 12-07-2023 07:48-0400 Reason For Taking VItal Signs DR KAREY JARVIS MD [facility] 12-06-2023 10:13-0400 Body height 162.[address] KAREY JARVIS MD [facility] 12-06-2023 10:13-0400 Body weight [address] KAREY JARVIS MD [facility] 12-06-2023 10:13-0400 Body weight 49.55 kg/m2 DR KAREY JARVIS MD [facility] 12-06-2023 08:17-0400 Diastolic Blood Pressure Non-Invasive 105 mm[Hg] GEORGE DE OLIVEIRA MD [facility] 12-06-2023 08:17-0400 Heart rate 102 /min GEORGE DE OLIVEIRA MD [facility] 12-06-2023 08:17-0400 Respiratory rate 18 /min GEORGE DE OLIVEIRA MD [facility] 12-06-2023 08:17-0400 Systolic Blood Pressure Non-Invasive 152 mm[Hg] GEORGE DE OLIVEIRA MD [facility] 12-06-2023 08:02-0400 Diastolic Blood Pressure Non-Invasive 86 mm[Hg] GEORGE DE OLIVEIRA MD [facility] 12-06-2023 08:02-0400 Heart rate 101 /min GEORGE DE OLIVEIRA MD [facility] 12-06-2023 08:02-0400 Respiratory rate 18 /min GEORGE DE OLIVEIRA MD [facility] 12-06-2023 08:02-0400 Systolic Blood Pressure Non-Invasive 138 mm[Hg] GEORGE DE OLIVEIRA MD [facility] 12-06-2023 07:33-0400 Body temperature 98.24 [degF] GEORGE DE OLIVEIRA MD [facility] 12-06-2023 07:33-0400 Diastolic Blood Pressure Non-Invasive 96 mm[Hg] GEORGE DE OLIVEIRA MD [facility] 12-06-2023 07:33-0400 Heart rate 90 /min GEORGE DE OLIVEIRA MD [facility] 12-06-2023 07:33-0400 Respiratory rate 18 /min GEORGE DE OLIVEIRA MD [facility] 12-06-2023 07:33-0400 Systolic Blood Pressure Non-Invasive 156 mm[Hg] GEORGE DE OLIVEIRA MD [facility] 11-05-2023 02:42-0400 Diastolic Blood Pressure Non-Invasive 62 mm[Hg] ESTRADA LYNN MD [facility] 11-05-2023 02:42-0400 Heart rate 94 /min ESTRADA LYNN MD [facility] 11-05-2023 02:42-0400 Systolic Blood Pressure Non-Invasive 125 mm[Hg] ESTRADA LYNN MD [facility] 11-05-2023 02:31-0400 Diastolic Blood Pressure Non-Invasive 74 mm[Hg] ESTRADA LYNN MD [facility] 11-05-2023 02:31-0400 Heart rate 92 /min ESTRADA LYNN MD [facility] 11-05-2023 02:31-0400 Respiratory rate 20 /min ESTRADA LYNN MD [facility] 11-05-2023 02:31-0400 Systolic Blood Pressure Non-Invasive 149 mm[Hg] ESTRADA LYNN MD [facility] 09-23-2023 17:36-0400 Diastolic Blood Pressure Non-Invasive 90 mm[Hg] RAYNE MARTI MD [facility] 09-23-2023 17:36-0400 Heart rate 94 /min RAYNE MARTI MD [facility] 09-23-2023 17:36-0400 Respiratory rate 16 /min RAYNE MARTI MD [facility] 09-23-2023 17:36-0400 Systolic Blood Pressure Non-Invasive 145 mm[Hg] RAYNE MARTI MD [facility] 09-23-2023 15:44-0400 Diastolic Blood Pressure Non-Invasive 87 mm[Hg] RAYNE MARTI MD [facility] 09-23-2023 15:44-0400 Heart rate 95 /min RAYNE MARTI MD [facility] 09-23-2023 15:44-0400 Respiratory rate 16 /min RAYNE MARTI MD [facility] 09-23-2023 15:44-0400 Systolic Blood Pressure Non-Invasive 149 mm[Hg] RAYNE MARTI MD [facility] 09-23-2023 14:49-0400 Body temperature 97.7 [degF] RAYNE MARTI MD [facility] 09-23-2023 14:49-0400 Diastolic Blood Pressure Non-Invasive 87 mm[Hg] RAYNE MARTI MD [facility] 09-23-2023 14:49-0400 Heart rate 98 /min RAYNE MARTI MD [facility] 09-23-2023 14:49-0400 Respiratory rate 18 /min RAYNE MARTI MD [facility] 09-23-2023 14:49-0400 Systolic Blood Pressure Non-Invasive 147 mm[Hg] RAYNE MARTI MD [facility] 09-23-2023 14:30-0400 Diastolic Blood Pressure Non-Invasive 60 mm[Hg] RADHA H[facility]SON [facility] 09-23-2023 14:30-0400 Heart rate 94 /min RADHA [facility] 09-23-2023 14:30-0400 Respiratory rate 20 /min RADHA [facility] 09-23-2023 14:30-0400 Systolic Blood Pressure Non-Invasive 137 mm[Hg] RADHA [facility] 09-23-2023 14:15-0400 Diastolic Blood Pressure Non-Invasive 60 mm[Hg] RADHA [facility] 09-23-2023 14:15-0400 Heart rate 97 /min RADHA [facility] 09-23-2023 14:15-0400 Respiratory rate 20 /min RADHA [facility] 09-23-2023 14:15-0400 Systolic Blood Pressure Non-Invasive 120 mm[Hg] RADHA [facility] 09-23-2023 14:00-0400 Diastolic Blood Pressure Non-Invasive 62 mm[Hg] RADHA [facility] 09-23-2023 14:00-0400 Heart rate 104 /min RADHA [facility] 09-23-2023 14:00-0400 Systolic Blood Pressure Non-Invasive 133 mm[Hg] RADHA [facility] 09-23-2023 13:59-0400 Body height 162.6 cm RADHA [facility] 09-23-2023 13:59-0400 Body weight 129 kg RADHA [facility] 09-23-2023 13:59-0400 Body weight 48.79 kg/m2 RADHA [facility] 05-17-2022 15:51-0400 Diastolic blood pressure 87 mm[Hg] Dr. Yanelis Jones Work Phone: [facility] 05-17-2022 15:51-0400 Heart rate 90 /min Dr. Yanelis Jones Work Phone: [facility] 05-17-2022 15:51-0400 Respiratory rate 16 /min Dr. Yanelis Jones Work Phone: [facility] 05-17-2022 15:51-0400 SaO2% (BldA) [Mass fraction] 97 % Dr. Yanelis Jones Work Phone: [facility] 05-17-2022 15:51-0400 Systolic blood pressure 134 mm[Hg] Dr. Yanelis Jones Work Phone: [facility] 05-17-2022 12:59-0400 Body height 162.[address] Yanelis Jones Work Phone: [facility] 05-17-2022 12:59-0400 Body mass index (BMI) [Ratio] 45.4 kg/m2 Dr. Yanelis Jones Work Phone: [facility] 05-17-2022 12:59-0400 Body temperature 97.4 [degF] Dr. Yanelis Jones Work Phone: [facility] 05-17-2022 12:59-0400 Body weight 120.[address] Yanelis Jones Work Phone: [facility] 03-23-2022 17:23-0500 Body temperature 97.7 [degF] Dr. Yanelis Jones Work Phone: [facility] 03-23-2022 17:23-0500 Diastolic blood pressure 72 mm[Hg] Dr. Yanelis Jones Work Phone: [facility] 03-23-2022 17:23-0500 Heart rate 102 /min Dr. Yanelis Jones Work Phone: [facility] 03-23-2022 17:23-0500 Respiratory rate 20 /min Dr. Yanelis Jones Work Phone: [facility] 03-23-2022 17:23-0500 SaO2% (BldA) [Mass fraction] 99 % Dr. Yanelis Jones Work Phone: [facility] 03-23-2022 17:23-0500 Systolic blood pressure 122 mm[Hg] Dr. Yanelis Jones Work Phone: [facility] 04-13-2021 09:30-0500 Body temperature 98.96 [degF] ESTRADA LYNN MD [facility] 04-13-2021 09:30-0500 Diastolic blood pressure 88 mm[Hg] ESTRADA LYNN MD [facility] 04-13-2021 09:30-0500 Heart rate 100 /min ESTRADA LYNN MD [facility] 04-13-2021 09:30-0500 Respiratory rate 18 /min ESTRADA LYNN MD [facility] 04-13-2021 09:30-0500 Systolic blood pressure 133 mm[Hg] ESTRADA LYNN MD [facility] 04-12-2021 23:00-0500 Diastolic blood pressure 72 mm[Hg] ESTRADA LYNN MD [facility] 04-12-2021 23:00-0500 Mean blood pressure 93 mm[Hg] ESTRADA LYNN MD [facility] 04-12-2021 23:00-0500 Systolic blood pressure 135 mm[Hg] ESTRADA LYNN MD [facility] 04-12-2021 21:27-0500 Diastolic blood pressure 73 mm[Hg] ESTRADA LYNN MD [facility] 04-12-2021 21:27-0500 Heart rate 104 /min ESTRADA LYNN MD [facility] 04-12-2021 21:27-0500 Mean blood pressure 97 mm[Hg] ESTRADA LYNN MD [facility] 04-12-2021 21:27-0500 Respiratory rate 18 /min ESTRADA LYNN MD [facility] 04-12-2021 21:27-0500 Systolic blood pressure 144 mm[Hg] ESTRADA LYNN MD [facility] 04-12-2021 15:53-0500 Body temperature 98.24 [degF] ESTRADA LYNN MD [facility] 04-12-2021 15:53-0500 Mean blood pressure 95 mm[Hg] ESTRADA LYNN MD [facility] 04-12-2021 10:33-0500 Body temperature 97.52 [degF] ESTRADA LYNN MD [facility] 04-12-2021 10:21-0500 Diastolic Blood Pressure NBP 87 1 ESTRADA LYNN MD [facility] 04-12-2021 10:21-0500 Systolic Blood Pressure NBP 151 1 ESTRADA LYNN MD [facility] 04-12-2021 10:15-0500 Diastolic Blood Pressure NBP 72 1 ESTRADA LYNN MD [facility] 04-12-2021 10:15-0500 Systolic Blood Pressure NBP 131 1 ESTRADA LYNN MD [facility] 04-12-2021 10:10-0500 Diastolic Blood Pressure NBP 70 1 ESTRADA LYNN MD [facility] 04-12-2021 10:10-0500 Systolic Blood Pressure NBP 119 1 ESTRADA LYNN MD [facility] 04-12-2021 09:26-0500 Body temperature 97.34 [degF] ESTRADA LYNN MD [facility] 04-12-2021 04:22-0500 Body temperature 98.6 [degF] ESTRADA LYNN MD [facility] 04-11-2021 09:07-0500 Body height 162.6 cm ESTRADA LYNN MD [facility] 04-11-2021 09:07-0500 Body weight 127.3 kg ESTRADA LYNN MD [facility] 04-11-2021 09:07-0500 Body weight 48.15 kg/m2 ESTRADA LYNN MD [facility] 04-04-2021 02:01-0500 Diastolic blood pressure 68 mm[Hg] CORDELL MCCLENDON MD [facility] 04-04-2021 02:01-0500 Heart rate 96 /min CORDELL MCCLENDON MD [facility] 04-04-2021 02:01-0500 Mean blood pressure 85 mm[Hg] CORDELL MCCLENDON MD [facility] 04-04-2021 02:01-0500 Respiratory rate 20 /min CORDELL MCCLENDON MD [facility] 04-04-2021 02:01-0500 Systolic blood pressure 119 mm[Hg] CORDELL MCCLENDON MD [facility] 04-04-2021 01:46-0500 Diastolic blood pressure 60 mm[Hg] CORDELL MCCLENDON MD [facility] 04-04-2021 01:46-0500 Heart rate 101 /min CORDELL MCCLENDON MD [facility] 04-04-2021 01:46-0500 Mean blood pressure 82 mm[Hg] CORDELL MCCLENDON MD [facility] 04-04-2021 01:46-0500 Respiratory rate 20 /min CORDELL MCCLENDON MD [facility] 04-04-2021 01:46-0500 Systolic blood pressure 127 mm[Hg] CORDELL MCCLENDON MD [facility] 04-04-2021 01:31-0500 Diastolic blood pressure 84 mm[Hg] CORDELL MCCLENDON MD [facility] 04-04-2021 01:31-0500 Heart rate 105 /min CORDELL MCCLENDON MD [facility] 04-04-2021 01:31-0500 Mean blood pressure 104 mm[Hg] CORDELL MCCLENDON MD [facility] 04-04-2021 01:31-0500 Respiratory rate 21 /min CORDELL MCCLENDON MD [facility] 04-04-2021 01:31-0500 Systolic blood pressure 143 mm[Hg] CORDELL MCCLENDON MD [facility] 04-04-2021 01:25-0500 Body temperature 98.78 [degF] CORDELL MCCLENDON MD [facility] 04-04-2021 01:15-0500 Body height 162.6 cm CORDELL MCCLENDON MD [facility] 04-04-2021 01:15-0500 Body weight 125.5 kg CORDELL MCCLENDON MD [facility] 04-04-2021 01:15-0500 Body weight 47.47 kg/m2 CORDELL MCCLENDON MD [facility] 03-28-2021 12:10-0500 Diastolic blood pressure 79 mm[Hg] GEORGE DE OLIVEIRA MD [facility] 03-28-2021 12:10-0500 Heart rate 87 /min GEORGE DE OLIVEIRA MD [facility] 03-28-2021 12:10-0500 Mean blood pressure 97 mm[Hg] GEORGE DE OLIVEIRA MD [facility] 03-28-2021 12:10-0500 Systolic blood pressure 132 mm[Hg] GEORGE DE OLIVEIRA MD [facility] 03-28-2021 12:05-0500 Diastolic blood pressure 77 mm[Hg] GEORGE DE OLIVEIRA MD [facility] 03-28-2021 12:05-0500 Heart rate 83 /min GEORGE DE OLIVEIRA MD [facility] 03-28-2021 12:05-0500 Mean blood pressure 98 mm[Hg] GEORGE DE OLIVEIRA MD [facility] 03-28-2021 12:05-0500 Systolic blood pressure 141 mm[Hg] GEORGE DE OLIVEIRA MD [facility] 03-28-2021 11:25-0500 Diastolic blood pressure 76 mm[Hg] GEORGE DE OLIVEIRA MD [facility] 03-28-2021 11:25-0500 Heart rate 85 /min GEORGE DE OLIVEIRA MD [facility] 03-28-2021 11:25-0500 Mean blood pressure 92 mm[Hg] GEORGE DE OLIVEIRA MD [facility] 03-28-2021 11:25-0500 Systolic blood pressure 125 mm[Hg] GEORGE DE OLIVEIRA MD [facility] 03-21-2021 15:49-0500 Diastolic blood pressure 84 mm[Hg] GEORGE DE OLIVEIRA MD [facility] 03-21-2021 15:49-0500 Heart rate 88 /min GEORGE DE OLIVEIRA MD [facility] 03-21-2021 15:49-0500 Mean blood pressure 103 mm[Hg] GEORGE DE LOIVEIRA MD [facility] 03-21-2021 15:49-0500 Respiratory rate 16 /min GEORGE DE OLIVEIRA MD [facility] 03-21-2021 15:49-0500 Systolic blood pressure 140 mm[Hg] GEORGE DE OLIVEIRA MD [facility] 03-21-2021 15:30-0500 Diastolic blood pressure 83 mm[Hg] GEORGE DE OLIVEIRA MD [facility] 03-21-2021 15:30-0500 Heart rate 94 /min GEORGE DE OLIVEIRA MD [facility] 03-21-2021 15:30-0500 Mean blood pressure 103 mm[Hg] GEORGE DE OLIVEIRA MD [facility] 03-21-2021 15:30-0500 Respiratory rate 18 /min GEORGE DE OLIEVIRA MD [facility] 03-21-2021 15:30-0500 Systolic blood pressure 144 mm[Hg] GEORGE DE OLIVEIRA MD [facility] 03-21-2021 15:26-0500 Body temperature 96.98 [degF] GEORGE DE OLIVEIRA MD [facility] 03-21-2021 15:26-0500 Diastolic blood pressure 88 mm[Hg] GEORGE DE OLIVEIRA MD [facility] 03-21-2021 15:26-0500 Heart rate 94 /min GEORGE DE OLIVEIRA MD [facility] 03-21-2021 15:26-0500 Mean blood pressure 109 mm[Hg] GEORGE DE OLIVEIRA MD [facility] 03-21-2021 15:26-0500 Respiratory rate 18 /min GEORGE DE OLIVEIRA MD [facility] 03-21-2021 15:26-0500 Systolic blood pressure 150 mm[Hg] GEORGE DE OLIVEIRA MD [facility] 03-14-2021 17:27-0500 Body temperature 98.06 [degF] ESTRADA LYNN MD [facility] 03-14-2021 17:27-0500 Diastolic blood pressure 68 mm[Hg] ESTRADA LYNN MD [facility] 03-14-2021 17:27-0500 Heart rate 76 /min ESTRADA LYNN MD [facility] 03-14-2021 17:27-0500 Mean blood pressure 90 mm[Hg] ESTRADA LYNN MD [facility] 03-14-2021 17:27-0500 Respiratory rate 18 /min ESTRADA LYNN MD [facility] 03-14-2021 17:27-0500 Systolic blood pressure 133 mm[Hg] ESTRADA LYNN MD [facility] Encounters Encounter Date Encounter Type Care Provider Facility Start: 01-13-2025 End: 01-13-2025 ambulatory Brooks Paxton Facility:[facility] Start: 01-07-2025 End: 01-07-2025 ambulatory BROOKS ACOSTA MD Facility:[facility] Start: 01-07-2025 End: 01-07-2025 Patient encounter procedure YVON NOE MD [facility] Start: 01-05-2025 End: 01-05-2025 ambulatory Brooks Dave Facility:[facility] Start: 12-22-2024 End: 12-22-2024 ambulatory Brooks Paxton Facility:[facility] Start: 12-20-2024 End: 12-20-2024 ambulatory [facility] Start: 12-08-2024 End: 12-08-2024 ambulatory Brooks Dave Facility:[facility] Start: 11-18-2024 End: 11-18-2024 ambulatory Brooks Dave Facility:[facility] Start: 11-11-2024 End: 11-11-2024 ambulatory Brooks Dave Facility:[facility] Start: 10-15-2024 ambulatory Brooks Dave Facility :[facility] Start: 09-25-2024 End: 09-25-2024 ambulatory [facility] Start: 09-10-2024 End: 09-10-2024 ambulatory Brooks Paxton Facility:[facility] Start: 09-02-2024 End: 09-02-2024 ambulatory Brooks Dave Facility:[facility] Start: 09-01-2024 End: 09-01-2024 ambulatory Brooks Dave Facility:[facility] Start: 08-18-2024 End: 08-18-2024 ambulatory Brooks Paxton Facility:[facility] Start: 08-11-2024 End: 08-11-2024 ambulatory Brooks Paxton Facility:[facility] Start: 08-05-2024 End: 08-09-2024 ambulatory BROOKS ACOSTA MD Facility:[facility] Start: 08-05-2024 End: 08-09-2024 Outreach Lab YVON NOE MD [facility] Start: 08-04-2024 End: 08-04-2024 ambulatory Brookserick Acosta Facility:[facility] Start: 07-29-2024 End: 07-29-2024 ambulatory BROOKS ACOSTA MD Facility:[facility] Start: 07-29-2024 End: 07-29-2024 Patient encounter procedure YVON NOE MD [facility] Start: 07-21-2024 End: 07-21-2024 ambulatory Brooks Dave Facility:[facility] Start: 07-18-2024 End: 07-18-2024 ambulatory Brookserick Acosta Facility:[facility] Start: 07-17-2024 End: 07-17-2024 ambulatory BROOKS ACOSTA MD Facility:[facility] Start: 07-17-2024 End: 07-17-2024 Patient encounter procedure YVON NOE MD [facility] Start: 07-03-2024 End: 07-03-2024 ambulatory Sharad Santiago Facility:[facility] Start: 06-24-2024 ambulatory Brooks Dave Facility :[facility] Start: 06-02-2024 End: 06-02-2024 ambulatory Brooks Acosta Facility:[facility] Start: 05-20-2024 End: 05-20-2024 ambulatory Brooks Dave Facility:[facility] Start: 05-01-2024 End: 05-01-2024 ambulatory BROOKS ACOSTA MD Facility:[facility] Start: 05-01-2024 End: 05-01-2024 SAME DAY STAY GEORGE DE OLIVEIRA MD [facility] Start: 04-22-2024 End: 04-22-2024 Admission to establishment GEORGE DE OLIVEIRA MD [facility] Start: 04-22-2024 End: 04-22-2024 ambulatory BROOKS ACOSTA MD Facility:[facility] Start: 04-22-2024 Encounter for other preprocedural examination GEORGE DE OLIVEIRA MD [facility] Start: 04-17-2024 End: 04-17-2024 ambulatory Brooks Acosta Facility:[facility] Start: 04-14-2024 End: 04-15-2024 Emergency department patient visit Chay Kimberli Facility:[facility] Start: 03-18-2024 End: 03-18-2024 ambulatory Sharad Santiago Facility:[facility] Start: 03-12-2024 End: 03-12-2024 ambulatory Brooks Acosta Facility:[facility] Start: 02-25-2024 End: 02-29-2024 ambulatory BROOKS ACOSTA MD Facility:[facility] Start: 02-25-2024 End: 02-29-2024 Outreach Lab GEOREG DE OLIVEIRA MD [facility] Start: 02-22-2024 End: 02-22-2024 ambulatory Florentino WHITFIELD Facility:[facility] Start: 01-28-2024 End: 02-01-2024 ambulatory BROOKS ACOSTA MD Facility:[facility] Start: 01-28-2024 End: 02-01-2024 Outreach Lab GEORGE DE OLIVEIRA MD [facility] Start: 12-06-2023 End: 12-08-2023 Evaluation and management of inpatient DR KAREY JARVIS MD [facility] Start: 12-06-2023 End: 12-06-2023 Evaluation and management of inpatient GEORGE DE OLIVEIRA MD [facility] Start: 11-29-2023 End: 11-29-2023 Patient encounter procedure GEORGE DE OLIVEIRA MD [facility] Start: 11-22-2023 End: 11-22-2023 Patient encounter procedure GEORGE DE OLIVEIRA MD [facility] Start: 11-15-2023 End: 11-19-2023 Outreach Lab GEORGE DE OLIVEIRA MD [facility] Start: 11-15-2023 End: 11-15-2023 Patient encounter procedure GEORGE DE OLIVEIRA MD [facility] Start: 11-08-2023 End: 11-08-2023 Patient encounter procedure GEORGE DE OLIVEIRA MD [facility] Start: 11-05-2023 End: 11-05-2023 ambulatory BROOKS ACOSTA MD Facility:[facility] Start: 11-05-2023 End: 11-05-2023 SAME DAY STAY ESTRADA LYNN MD [facility] Start: 11-01-2023 ambulatory GEORGE DE OLIVEIRA MD Facili ty:[facility] Start: 11-01-2023 ambulatory GEORGE DE OLIVEIRA MD Facili ty:[facility] Start: 11-01-2023 End: 11-01-2023 ambulatory GEORGE DE OLIVEIRA MD Facility:[facility] Start: 11-01-2023 End: 11-01-2023 Patient encounter procedure GEORGE DE OLIVEIRA MD [facility] Start: 10-30-2023 ambulatory GEORGE DE OLIVEIRA MD Facili ty:[facility] Start: 10-25-2023 ambulatory BROOKS ACOSTA MD Fac ility:[facility] Start: 10-18-2023 End: 10-18-2023 ambulatory BROOKS ACOSTA MD Facility:[facility] Start: 09-26-2023 End: 09-26-2023 ambulatory BROOKS ACOSTA MD Facility:[facility] Start: 09-23-2023 End: 09-23-2023 Emergency department patient visit RAYNE MARTI MD [facility] Start: 09-23-2023 End: 09-23-2023 ambulatory BROOKS ACOSTA MD Facility:[facility] Start: 09-23-2023 End: 09-23-2023 SAME DAY STAY RADHA [facility]SON [facility] Start: 08-20-2023 End: 08-20-2023 ambulatory GEORGE DE OLIVEIRA MD Facility:[facility] Start: 08-20-2023 End: 08-20-2023 Patient encounter procedure GEORGE DE OLIVEIRA MD [facility] Start: 07-20-2023 End: 07-20-[address] YANELIS JONES MD Facility:[facility] Start: 06-14-[address] YANELIS JONES MD Facil ity:[facility] Start: 06-14-2023 End: 06-18-2023 Outreach Lab MERON CHAVARRIA [facility] Start: 06-14-2023 End: 06-14-2023 ambulatory GEORGE DE OLIVEIRA MD Facility:[facility] Start: 06-14-2023 End: 06-14-2023 Patient encounter procedure GEORGE DE OLIVEIRA MD [facility] Start: 04-16-2023 ambulatory GEORGE DE OLIVEIRA MD Facili ty:[facility] Start: 04-16-2023 End: 04-01-2024 Lab-Standing Order GEORGE DE OLIVEIRA MD [facility] Start: 01-04-2023 End: 01-04-2023 ambulatory GEORGE DE OLIVEIRA MD Facility:[facility] Start: 01-04-2023 End: 01-08-2023 Outreach Lab GEORGE DE OLIVEIRA MD [facility] Start: 08-03-2022 End: 08-03-2022 Patient encounter procedure GEORGE DE OLIVEIRA MD [facility] Start: 06-01-2022 End: 06-05-2022 Outreach Lab GEORGE DE OLIVEIRA MD [facility] Start: 05-17-2022 End: 05-17-2022 Emergency department patient visit Dr. Yanelis Jones Work Phone: [facility] Start: 03-23-2022 End: 03-23-[address] Yanelis Jones Work Phone: [facility] Start: 03-23-2022 Non-patient / Non-visit Dr. Gilberto Jones Work Phone: [facility] Start: 01-19-2022 End: 01-23-2022 Outreach Lab GEORGE DE OLIVEIRA MD [facility] Start: 01-10-2022 End: 01-14-2022 Outreach Lab CORDELL MCCLENDON MD [facility] Start: 12-01-2021 End: 12-05-2021 Outreach Lab GEORGE DE OLIVEIRA MD [facility] Start: 11-25-2021 End: 11-25-2021 ambulatory [facility] Work Phone: Start: 11-25-2021 End: 11-25-2021 Patient encounter procedure [facility] Start: 10-27-2021 End: 10-27-2021 [facility] Start: 04-11-2021 End: 04-13-2021 Evaluation and management of inpatient ESTRADA LYNN MD [facility] Start: 04-04-2021 End: 04-08-2021 Outreach Lab GEORGE DE OLIVEIRA MD [facility] Start: 04-04-2021 End: 04-04-2021 Patient encounter procedure GEORGE DE OLIVEIRA MD [facility] Start: 04-04-2021 End: 04-04-2021 SAME DAY STAY CORDELL MCCLENDON MD [facility] Start: 03-28-2021 End: 03-28-2021 SAME DAY STAY GEORGE DE OLIVEIRA MD [facility] Start: 03-28-2021 End: 03-28-2021 Patient encounter procedure MERON CHAVARRIA [facility] Start: 03-22-2021 End: 03-26-2021 Outreach Lab ESTRADA LYNN MD [facility] Start: 03-21-2021 End: 03-21-2021 SAME DAY STAY GEORGE DE OLIVEIRA MD [facility] Start: 03-17-2021 End: 03-17-2021 Patient encounter procedure GEORGE DE OLIVEIRA MD [facility] Start: 03-14-2021 End: 03-14-2021 SAME DAY STAY ESTRADA LYNN MD [facility] Start: 01-10-2021 End: 01-10-2021 Patient encounter procedure GEORGE DE OLIVEIRA MD [facility] Start: 12-13-2020 End: 12-13-2020 Patient encounter procedure GEORGE DE OLIVEIRA MD [facility] Procedures Date Procedure Procedure Detail Performing Clinician Start: 05-01-2024 Laparoscopic salpingectomy GEORGE Hylton Comment on above: BILATERAL Start: 04-12-2021 Dilation and curettage of uterus after delivery ESTRADA LYNN MD Start: 04-04-2011 Colonoscopy GEORGE DE OLIVEIRA MD Esophagogastroduodenoscopy Warner DE OLIVEIRA MD H/O: surgery Status post bilateral salpingectomy GEORGE DE OLIVIERA MD None (qualifier value) GEORGE DE OLIVEIRA MD Respiratory Panel (PCR) Structure of wisdom tooth (body structure) GEORGE DE OLIVEIRA MD Plan of Treatment Date Care Activity Detail Author Patient Education ED Gastroenteritis, Vir al (Adult) [facility] Work Phone: Patient referral [facility] Work Phone: Immunizations Immunization Date Immunization Notes Care Provider Fa [id number] 10-25-2023 tetanus toxoid, redu nicol diphtheria toxoid, and acellular pertussis vaccine, adsorbed; Translations: [Boostrix (Tdap)] GEORGE DE OLIVEIRA MD [facility] Comment on above: Early/Late Reason: E ranjan/Late Reason: Other : This nurse unable to chat at time of injection Result Comment: [facility]# [id number] 04-28-2020 tetanus toxoid, redu nicol diphtheria toxoid, and acellular pertussis vaccine, adsorbed; Translations: [Boostrix (Tdap)] GEORGE DE OLIVEIRA MD [facility] 01-02-[address] [facility] 12-11-[address] [facility] Payers Date Payer Category Payer Medicaid [id number] 2024 Private Health Insurance [id number] 2024 Self-pay [id number] 2023 Medicare [id number] 2023 Unknown [id number] 2023 Unknown [id number] 2015 Unknown [employer] [facility] *IN NETWORK [id number] 1987 Unknown [id number] 2..[id number] 1987 Unknown [id number] 1987 Unknown [id number] 2..[id number] 1987 Unknown [id number] [id number] 27 1987 Unknown [id number] 2.16.840.1.539387.3.579.2.6 1987 Unknown [id number] 2.16.840.1.750282.3.579.2.6 1987 Unknown [id number] 2.16.840.1.904565.3.579.2.6 1987 Unknown [id number] 2.16.840.1.064450.3.579.2.6 1987 Unknown [id number] 2.16.840.1.542726.3.579.2.6 1987 Unknown [id number] 2.16.840.1.178455.3.579.2.6 1987 Unknown [id number] 2.16.840.1.906814.3.579.2.6 1987 Unknown [id number] 2.16.840.1.831895.3.579.2.6 1987 Unknown [id number] 2.16.840.1.737571.3.579.2.6 1987 Unknown [id number] 2.16.840.1.666961.3.579.2.6 1985 Unknown [id number] 2.16.840.1.473275.3.579.2.6 1987 Unknown [id number] 2.16.840.1.120967.3.579.2.6 1987 Unknown [id number] 2.16.840.1.042430.3.579.2.6 1987 Unknown [id number] 2.16.840.1.167190.3.579.2.6 1987 Unknown [id number] 2.16.840.1.343753.3.579.2.6 1987 Unknown [id number] 2.16.840.1.897943.3.579.2.6 1987 Unknown [id number] 2.16.840.1.184195.3.579.2.6 1987 Unknown [id number] 2.16.840.1.124828.3.579.2.6 1987 Unknown [id number] 2.16.840.1.763786.3.579.2.6 1987 Unknown [id number] 2.16.840.1.950711.3.579.2.6 1987 Unknown [id number] 2.16.840.1.542371.3.579.2.6 1987 Unknown [id number] 2.16.840.1.896036.3.579.2.6 1987 Unknown [id number] 2.16.840.1.607401.3.579.2.4 79 Unknown [id number] 2.16.840.1.632394.3.579.2.4 62 Unknown [id number] 2.16.840.1.971527.3.579.2.4 62 Unknown [id number] 2.16.840.1.062271.3.579.2.4 62 Unknown [id number] 2.16.840.1.059172.3.579.2.4 62 Unknown [id number] 2.16.840.1.279655.3.579.2.4 62 Unknown [id number] 2.16.840.1.970644.3.579.2.4 62 Unknown [id number] 2.16.840.1.955754.3.579.2.4 62 Unknown [id number] 2.16.840.1.432318.3.579.2.4 62 Unknown [id number] 2.16.840.1.400528.3.579.2.4 62 Unknown [id number] 2.16.840.1.300408.3.579.2.4 62 Unknown [id number] 2.16.840.1.662448.3.579.2.4 62 Unknown [id number] 2.16.840.1.744027.3.579.2.4 62 Unknown [id number] 2.16.840.1.385522.3.579.2.4 62 Unknown [id number] 2.16.840.1.550942.3.579.2.4 62 Unknown [id number] 2.16.840.1.233152.3.579.2.4 62 Unknown [id number] 2.16.840.1.321205.3.579.2.4 62 Unknown [id number] 2.16.840.1.390851.3.579.2.4 62 Unknown [id number] 2.16.840.1.261037.3.579.2.4 62 Unknown [id number] 2.16.840.1.643496.3.579.2.4 62 Unknown [id number] 2.16.840.1.467972.3.579.2.4 62 Unknown [id number] 2.16.840.1.751356.3.579.2.4 62 Unknown [id number] 2.16.840.1.923648.3.579.2.4 62 Unknown [id number] 2.16.840.1.324632.3.579.2.4 62 Unknown [id number] 2.16.840.1.079180.3.579.2.4 62 Unknown [id number] 2.16.840.1.551605.3.579.2.4 62 Unknown [id number] 2.16.840.1.415321.3.579.2.4 62 Social History Date Type Detail Facility Start: 01-28-2020 End: 09-23-2023 Never smoked tobacco (finding) [facility] Start: 1985 Sex Assigned At Female A [facility] Start: 02-24-2021 End: 05-17-2022 Tobacco smoking status NHIS Unknown if ever smoked [facility] Start: 07-26-2020 None [facility] Start: 07-26-2020 Alone [facility] Start: 07-26-2020 Non-smoker [facility] Start: 01-27-2020 Sex Female (finding) [facility] NEGATED: Highlighted row [facility] Functional Status Date Assessment Result Facility 05-01-2024 Functional Status Up to chair [facility] 05-01-2024 Functional Status bilateral knee high richard lied/on [facility] 05-01-2024 Functional Status Maintained, More than 8 hours [facility] 04-22-2024 Functional Status Sensory Deficits None A [facility] 12-08-2023 Functional Status Activity Status ADL Up ad carmen [facility] 12-08-2023 Functional Status Repositions self [facility] 12-08-2023 Functional Status [facility] 12-08-2023 Functional Status [facility] 12-08-2023 Functional Status [facility] 12-07-2023 Functional Status [facility] 12-06-2023 Functional Status Home independently [facility] 09-23-2023 Functional Status None [facility] Mental Status Date Assessment Result Facility 05-01-2024 Mental Status Orientation Oriented x 4 [facility] 05-01-2024 Mental Status [facility] 05-01-2024 Mental Status [facility] 09-23-2023 Mental Status Oriented x 4 [facility] Clinical Notes 03-14-2021 to 05-01-2024 Note Date & Type Note Facility 05-01-2024 Evaluation + Plan note Extrac mak from: Title:Clinical Document Author:NIKITA LOCO, GEORGE Kumar Date:05/01/24 [facility] ADMISSION HISTORY AN D PHYSICIAL CHIEF COMPLAINT: Request permanent sterilization HISTORY OF PRESENT ILLNESS: Dory is a 39-year-old 4 para 4 who presents for elective sterilization. She currently has a progesterone containing IUD in place. Other than being overweight and having diabetes she is generally healthy. REVIEW OF SYSTEMS: Review of systems unremarkable. ACTIVE PROBLEMS: (16) Body mass index 30+ - obesity (202382159) Carpal tunnel syndrome, right (98789864) Diabetes (094636889) Diabetes mellitus type 1 (216682848) Encounter for general counseling and advice on contraceptive management (546669626) Encounter for IUD insertion (669274856) Encounter for supervision of normal in multigravida in third trimester (804743723) Fatty liver (966064474) GERD (gastroesophageal reflux disease) (023645406) Gestational diabetes requiring insulin (5060421066) Group B streptococcus (123954108) Hypertension (3151572786) IUD check up (9958881411) exam (210723772) state (941415617) Type 2 diabetes mellitus (110740914) MEDICATIONS: Active Inpt Meds: cefOXitin (Mefoxin) Start: [...] Stable home and family PHYSICAL EXAM: VITALS: ZbztzoLlchCZVhgjqOYMnX7MEO7VduoEr(kg) 05/01 06:3035.9--919502GN20/31993.0 24 Hr Tmax: 35.9 at 05/01 06:30 [...] LABS: 36hr Labs 05/01 0630 Blood Glucose, Dvzvvjsem414Q Blood Glucose, Cqgcfwjim537S 05/01 0615 testSee Flowsheet TestSee Flowsheet DIAGNOSTICS: [...] Date:07/17/2024 09:30:00 AM Scheduled Provider:YVON NOE MD Location:[facility] Appointment Type:ENDO PHYSIOGNOMIST Future Scheduled Tests Radiology* US OB W/Biophysical Profile 10/25/23 * US OB W/Biophysical Profile 11/08/23 [facility] 02-27-2025 Hospital Discharge instructions Patient Education 05/01/2024 [...] water added (diluted fruit juice). Eat bland, rkwg-ax-gwgrmz foods in small amounts as you are able. These foods include bananas, applesauce, rice, lean meats, toast, and crackers. Avoid fluids that contain a lot of sugar or caffeine, such as energy drinks, sports drinks, and soda. Avoid alcohol. Avoid spicy or fatty foods. General instructions Take adzi-fyo-rcyqwxi and prescription medicines only as told by your health care provider. Drink enough fluid to keep your urine pale yellow. Wash your hands often using soap and water. If soap and water are not available, use hand research specialist. Make sure that all people in your [...] eating and drinking to prevent dehydration. Take tgoh-xlo-mnrnqhx and prescription medicines only as told by [...] 02/19/2006 Document Revised: 06/13/2019 Document Reviewed: 07/30/2018 [employer] Patient Education 2020 Moodsnap. 05/01/2024 08:27:47 General Anesthesia, Adult, Care After [...] what activities are safe for you. Take tcdk-nja-sgbtxgj and prescription medicines only as told by [...] Document Reviewed: 10/05/2017 Elsevier Patient Education 2020 Moodsnap. 05/01/2024 08:24:59 Diagnostic Laparoscopy, Care After Diagnostic [...] Follow these instructions at home: Medicines Take bggi-zcc-mtwwhpl and prescription medicines only as told by [...] and water are not available, use hand research specialist. ?Change your dressing as told by your [...] to keep your urine pale yellow. ?Take dpdq-qhd-nmlolui or prescription medicines. ?Eat foods that are [...] 01/31/2016 Document Revised: 02/01/2018 Document Reviewed: 08/15/2017 [employer] Patient Education 2020 Moodsnap. Follow Up Care 04/16/2024 08:22:17 With:GEORGE DE OLIVEIRA MD Address: [address] [place] [address] [place] [address] [phone] When: Unknown Comments:please call to schedule post operative appointment for next [facility] 02-27-2025 Note Discharge Instructions Thank you for allowing [facility] to assist you with your healthcare needs. The following is importantdischarge information regarding your hospital visit. Your Care Team BROOKS ACOSTA MD Your Diagnosis Status post bilateral salpingectomy S/P laparoscopy Post-op pain What to do next Scheduled Follow-Up Appointments Appointment Type When With Where Contact Information Donna DUDLEY 07/17/2024 09:30 AM YVON JESUS MD [facility] [address] [place] [address]- [phone] Confirmed Follow Up Appointments Follow Up with GEORGE DE OLIVEIRA MD Where:[address] [place] [address] [address] [facility] [place] [address] [phone] Additional Information: please call to schedule post [...] Post-op pain Duration: 7 Days Pickup at [facility] 074 New ibuprofen (ibuprofen 600 mg oral tablet) 1 tab(s) by mouth Every 6 hours as needed for for pain Duration: 10 Days Take with food or milk. Pickup at [facility] 074 Unchanged amLODIPine (amLODIPine 5 [...] mouth once daily Pharmacy Information [facility] 074: [address] [place], [place] [phone] Please take this list to your next [...] water added (diluted fruit juice). Eat bland, sdbc-zi-qtfffn foods in small amounts as you are able. These foods include bananas, applesauce, rice, lean meats, toast, and crackers. Avoid fluids that contain a lot of sugar or caffeine, such as energy drinks, sports drinks, and soda. Avoid alcohol. Avoid spicy or fatty foods. General instructions Take guet-jip-pmixvhr and prescription medicines only as told by your health care provider. Drink enough fluid to keep your urine pale yellow. Wash your hands often using soap and water. If soap and water are not available, use hand research specialist. Make sure that all people in your [...] eating and drinking to prevent dehydration. Take dphr-osn-fbuhtub and prescription medicines only as told by [...] 02/19/2006 Document Revised: 06/13/2019 Document Reviewed: 07/30/2018 [employer] Patient Education 2020 [employer] General Anesthesia, Adult, Care After This [...] what activities are safe for you. Take liap-etx-ahkdqiv and prescription medicines only as told by [...] 05/28/2001 Document Revised: 02/22/2018 Document Reviewed: 10/05/2017 [employer] Patient Education 2020 Moodsnap. Diagnostic Laparoscopy, Care After This sheet gives [...] Follow these instructions at home: Medicines Take rism-pte-idokidk and prescription medicines only as told by [...] and water are not available, use hand research specialist. ? Change your dressing as told by [...] keep your urine pale yellow. ? Take qhdn-wix-raokfll or prescription medicines. ? Eat foods that [...] 01/31/2016 Document Revised: 02/01/2018 Document Reviewed: 08/15/2017 Else[employer]nn Patient Education 2020 [employer] Additional Information VACCINATE! IT SAVES LIVES! Members of the community who have not yet received the COVID-19 vaccine and would like to receive it can visit one of [facility] vaccine clinics. There are many vaccine clinic locations within the [facility]. For locations and available times, please visit [email or web address] It is important to note that some COVID mobile vaccine clinics are held outdoors and may be canceled in rainy or stormy conditions. To learn more about pediatric vaccinations (ages 5-11), we invite you to visit the [facility] webpage. https://www.[employer].org/pages/0844-Rxvjk-Cjaouuoyfgh-Lkcpkilivw-Icooc-Dlj stions.htmlTo learn more about the COVID-19 vaccine, we invite you to visit the CDC website for a list of frequently asked questions.https://www.cdc.gov/coronavirus/2019-ncov/vaccines/faq.html [facility] Patient Portal Access Instructions: Stay connected with your healthcare team and access your personal medical information anytime with the [facility] Patient Portal. Please follow the directions below to create your [facility] account: 1.Access the email account you provided upon registration to the hospital/physician office.2.Look for an invitation email from [facility].3.Open the email and access the invitation link: AcceptInvitation to [facility].4.Fill in the required king to create your account. To access your account, visit [employer]In[employer]pat. Click the blue button labeled Access Patient [...] who you will allowto register on the [facility] for access to your information. You can also access the [facility] on the [employer] richard. Simply click on Patient Portal and then log into your account. If you would like to receive a full copy of your medical records, please contact the [facility] Medical Records Department by calling [phone], Sunday through Sunday between 8 a.m. and [...] Call your local pharmacy or go to [email or web address] to find one close to you.3.Make use of household items: Use cat litter or old coffee grounds to dispose medications if other options arenot available. Mix your drugs with these household products, seal them in an airtight container andthrow it into the garbage. Call [facility]: [phone] to be sure your drugs can be [...] aware that I should contact my doctor. Patient/Parking Manager Signature: Date/Time: Relationship to Patient: Witness Name/Signature: Date/Time: [facility]02-27-2025 Note [facility] ADMISSION HISTORY AND PHYSICIAL CHIEF COMPLAINT: Request permanent sterilization HISTORY OF PRESENT ILLNESS: Dory is a 39-year-old 4 para 4 who presents for elective sterilization. She currently has a progesterone containing IUD in place. Other than being overweight andhaving diabetes she is generally healthy. REVIEW OF SYSTEMS: Review of systems unremarkable. ACTIVE PROBLEMS: (16) Body mass index 30+ - obesity (098051407) Carpal tunnel syndrome, right (92763004) Diabetes (663259383) Diabetes mellitus type 1 (248091901) Encounter for general counseling and advice on contraceptive management (900240177) Encounter for IUD insertion (837377219) Encounter for supervision of normal in multigravida in third trimester (860323181) Fatty liver (277700718) GERD (gastroesophageal reflux disease) (421096038) Gestational diabetes requiring insulin (4068228619) Group B streptococcus (807914442) Hypertension (5638606871) IUD check up (9581991352) exam (950967143) state (369130095) Type 2 diabetes mellitus (308960967) MEDICATIONS: Active Inpt Meds: cefOXitin (Mefoxin) Start: [...] Stable home and family PHYSICAL EXAM: VITALS: LotmjiErqyBHShyktSYBaA9WNW4TtdeWa(kg) 05/01 06:3035.9--808609HG40/69713.0 24 Hr Tmax: 35.9 at 05/01 06:30 [...] LABS: 36hr Labs 05/01 0630 Blood Glucose, Jiufgniia167D Blood Glucose, Ujamowtjd911D 05/01 0615 testSee Flowsheet TestSee Flowsheet DIAGNOSTICS: [...] DE OLIVEIRA MD on 05/01/2024 07:13 AM [facility]02-27-2025 Anesthesiology Consult note Patient: DORY HENDERSON Age: [...] index 30+ - obesity / SNOMED CT 065698020 / Confirmed Carpal tunnel syndrome, right / SNOMED CT 38224547 / Confirmed Diabetes mellitus type 1 / SNOMED CT 765652748 / Confirmed Gestational diabetes requiring insulin / SNOMED CT 0610586080 / Confirmed Group B streptococcus / SNOMED CT 751812504 / Confirmed Hypertension / SNOMED CT 0715436138 / Confirmed IUD check up / SNOMED CT 7938253363 / Confirmed Encounter for supervision of normal in multigravida in third trimester / SNOMED CT 740795502 / Confirmed Encounter for IUD insertion / SNOMED CT 803310776 / Confirmed Encounter for general counseling and advice on contraceptive management / SNOMED CT 333531185 / Confirmed exam / SNOMED CT 543019980 / Confirmed state / SNOMED CT 153284995 / Confirmed Type 2 diabetes mellitus / SNOMED CT 518103439 / Confirmed, Active Problems (16) Body mass [...] diabetes mellitus Histories Past Medical History: Resolved (127804299): Onset on 03/08/2023 at 38 years. Resolved on 12/06/2023 at 38 years. Comments: 12/31/2023 EDT 9:08 [place] - Eve Buchanan LPN 3wk PP visit. (334622835): Onset on 01/29/2023 at 37 years. Resolved in the month of 03/2023 at 38 years. (507487954): Onset on 07/23/2020 at 35 years. Resolved on 04/11/2021 at 36 years. Comments: 07/29/2020 EDT 8:51 EDT - SYSTEM System added from documentation. Status documented as Yes on Admission 04/28/2021 EST 9:57 EST - Eve Buchanan LPN postprtum visit 05/26/2021 EDT 9:43 EDT - Eve Buchanan LPN 6wk PP visit (127380019): Onset on 07/29/2019 at 34 years. Resolved on 04/27/2020 at 35 years. Comments: 05/20/2020 EDT 10:32 EDT - Yanelis Kirkpatrick RNprop sawyer (431651057): Onset on 06/05/2012 at 27 years. Resolved in 2013 at 28 years. Poor appetite (606590272): Resolved. At risk for ineffective (233630155567754): Resolved. Diabetes mellitus type 1 (673274636): Resolved. Family History: Cancer Father () Hypertension Mother Father () Arthritis Mother Heart attack Father () Grandparent () Depression Mother Brother Procedure history: Laparoscopic salpingectomy (279071466) on 05/01/2024 at 39 Years. Dilation and curettage of uterus after delivery (0514626796) on 04/12/2021 at 36 Years. Colonoscopy (573597616) on 04/04/2011 at 26 Years. [place] tooth (88294395). EGD - esophagogastroduodenoscopy (0855238664). Social History: Social & Psychosocial Habits Alcohol [...] Signs (last 24 hrs) Last Charted Temp Iahvrnuo03.9 DegC (MAY 01 06:30) SBPH 145 mmHg (MAY 01 06:30) DBPH 97 mmHg (MAY 01 06:30) Measurements from flowsheet : Measurements 05/01/2024 6:30 EST Height 163 cm Admission Weight 122 kg Raccoon Body Weight 55.10 kg Pain assessment: Pain [...] Height 163 cm Admission Weight 122 kg Raccoon Body Weight 55.10 kg Temperature Temporal Artery [...] Allergies Yes Anesthesia Extension Set Applied Yes Dope Weigh Operator On Yes Consent Form Signed Yes Patient [...] #1 We May Share PHI Ricardo CABRALES [phone] Designated Person #1 Relationship Spouse Privacy Restrictions [...] after midnight, No makeup, No jewelry, Responsible Republican, Aware of surgery location, Pre-op education done, 1 bottle CHG wash with instructionsgiven, Instructed to take ordered medications, SSI prevention handout given SN - Preprocedure Comments Spoke with patient, Verbalizes/Nonverbally indicates understanding, Other: amlodipine, pantoprazole Barriers to Learning None evident Teaching Method Explanation Preferred Spoken Language Serbian Preferred Written Language Serbian Teaching Evaluation No further teaching needed Safety Brochure Information Reviewed Yes [facility] Video Viewed No Patient's Current Physicians DR [...] QC PRGUP Positive . Assessment and Plan [place] Society of Anesthesiologists (ASA) physical status classification: Class III. Anesthetic Preoperative Plan Premedication: intravenous. Anesthetic technique: General. Induction: intravenously. Maintenance airway: Oral endotracheal tube. Postoperative pain management: Per surgeon. Risks discussed: nausea, vomiting, sore throat. Informed consent: signed by patient. Digitally Signed by BELTRAN LÓPEZ on 05/01/2024 07:09 AM [facility]10-05-2024 Hospital Discharge instructions Patient Education 12/08/2023 11:10:12 [...] you. Follow these instructions at home: Take fzcj-omr-xvxuidz and prescription medicines only as told by [...] 10/23/2014 Document Revised: 03/28/2019 Document Reviewed: 12/10/2017 [employer] Patient Education 2019 Moodsnap. 12/08/2023 11:10:11 Hemorrhage Hemorrhage hemorrhage is excessive [...] spinach, red meat, and legumes. Take any uymh-clb-gfrsqbu and prescription medicines only as told by [...] 05/11/2004 Document Revised: 02/01/2018 Document Reviewed: 09/22/2016 [employer] Patient Education 2020 Moodsnap. 12/08/2023 11:10:09 7- Home Care Instructions After [...] decreases and the color of blood gets clarifier operator. Bright red and increased flow may reoccur [...] tender for several weeks. Take prescription or sudm-plm-exljouw medications for pain with your care givers [...] straining when trying to pass a stool. Wdjf-upb-didwblg medications, stool softeners, can be used. Check [...] symptoms.) Follow Up Care 12/06/2023 09:22:35 With:[facility] CRANIOLOGIST Address: [address] [place] [address]- When:Within 6 Week(s) Comments:Follow-up as needed [facility] 10-05-2024 Note Discharge Instructions Thank you for allowing [facility] to assist you with your healthcare needs. The following is importantdischarge information regarding your hospital visit. Your Care Team BROOKS ACOSTA MD What to do next Follow Up Appointments Follow Up with [facility] CRANIOLOGIST When:In 6 weeks Where:[address] [place] [address]- Additional Information: Follow-up as needed Someone Will [...] Refills: 1 Take with food. Pickup at [facility] 074 New ibuprofen (ibuprofen 600 mg oral tablet) 1 tab(s) by mouth Every 6 hours Duration: 10 Days Take with food or milk. Pickup at [facility] 074 New senna (senna (sennosides) 8.6 mg oral tablet) 1 tab(s) by mouth Daily at bedtime Pickup at [facility] 074 Unchanged amLODIPine (amLODIPine 5 mg oral [...] mouth once daily Pharmacy Information [facility] 074: [address], [place] [phone] Please take this list to your next [...] you. Follow these instructions at home: Take xbik-pte-cenoohv and prescription medicines only as told by [...] Document Reviewed: 12/10/2017 Elsevier Patient Education 2020 [employer] Hemorrhage hemorrhage is excessive blood loss [...] spinach, red meat, and legumes. Take any izsb-fzq-xerllld and prescription medicines only as told by [...] 05/11/2004 Document Revised: 02/01/2018 Document Reviewed: 09/22/2016 ElseFlynn Patient Education 2020 [employer] Home Care Instructions After Delivery After [...] decreases and the color of blood gets clarifier operator. Bright red and increased flow may reoccur [...] tender for several weeks. Take prescription or xecw-kxx-kqyuhep medications for pain with your care givers [...] straining when trying to pass a stool. Dvud-czy-rvfdngz medications, stool softeners, can be used. Check [...] to receive it can visit one of [facility] vaccine clinics. There are many vaccine clinic locations within the [facility]. For locations and available times, please visit www.[email or web address].[place].gov/. It is important to note that some COVID mobile vaccine clinics are held outdoors and may be canceled in rainy or stormy conditions. To learn more about pediatric vaccinations (ages 5-11), we invite you to visit the [facility] webpage. https://www.[email or web address]/pages/2290-Atfsg-Zqedohkymhl-Hwabsmtovh-Hnbwq-Fel stions.htmlTo learn more about the COVID-19 vaccine, we invite you to visit the CDC website for a list of frequently asked questions. https://www.cdc.gov/coronavirus/2019-ncov/vaccines/faq.html [facility] Patient Portal Access Instructions: Stay connected with your healthcare team and access your personal medical information anytime with the [facility] Patient Portal.If you would like a full copy of your medical records, please contact the [facility] Medical Records Department, Sunday through Sunday between 8a.m. and 4:30p.m. Please follow the directions below to access the portal: 1.Access the email account you provided upon registration to the [facility].2.Look for an invitation email from [facility].3.Open the email and access the invitation link: Accept Invitation to [facility]4.Fill in the required king to create your account. Sign into www.[email or web address] with your username and password that you [...] you will allow to register on the [facility] Patient Portal for access to your information. You can also access the [facility] Patient Portal on the [employer] richard. Simply click on Health Records under [employer] and then click on the Madan logo. [...] Call your local pharmacy or go to http://bit.WARSTUFF/9F3Hy3n to find one close to you.3.Make use of household items: Use cat litter or old coffee grounds to dispose medications if other options arenot available. Mix your drugs with these household products, seal them in an airtight container andthrow it into the garbage. Call [facility]: [phone] to be sure your drugs can be [...] aware that I should contact my doctor. Patient/Parking Manager Signature: Date/Time: Relationship to Patient: Witness Name/Signature: Date[id number] Note Date of Service 12/08/2023 OB Discharge [...] Rubella: (x) Rubella immune ( ) Rubella dlf-yphmma-Eggfesx given ( ) Rubella tln-qrlfuf-Uinuhfo declined Feeding Rosales: (x) Breast feeding (x) [...] NICOLETTE MUNSON MD on 12/08/2023 09:07 AM [id number] Note Date of Service 12/08/2023 OB Discharge [...] Rubella: (x) Rubella immune ( ) Rubella kuy-clcyza-Rezqntk given ( ) Rubella uhu-kjuyjs-Aqemigp declined Feeding Rosales: (x) Breast feeding (x) [...] NICOLETTE MUNSON MD on 12/08/2023 09:07 AM [id number] Note. MICRO - Microbiology PROCEDURE: Urine Culture [...] Locations *1: This test was performed at: [facility], [address] [place] [address], [facility] , [facility]10-04-2024 Maternal and medicine Consult note MATERNAL MEDICINE REVIEW Consult Ref[facility] Admitted on: [...] 06 11:25)74(DEC 06 07:48)H 115(DEC 05 21:15) EBC054(DEC 06 11:25)116(DEC 05 17:15)H 166(DEC 05 21:45) [...] KAREY JARVIS MD on 12/07/2023 12:54 PM [id number] History and physical note Reason for Visit [...] an BERNADETTE of 12/12 who presents to [facility] asa transfer from [facility]. The patient arrived this morning at [facility] for an induction at 39/0. Due to her BMI, she was sent to [facility]. As the BMI cutoff at [facility] is 50.0 Today, she feels overall [...] Age: 39 weeks Wt: 3483 g Hospital: [facility] Cesar Labor: -- Child's Name: -- Baby's [...] an BERNADETTE of 12/12 who presents to [facility] delivery asa transfer from [facility] This is complicated by anxiety chronic [...] This is an opposition to documents from [facility]. She is currently on metformin 500 [...] + LR Premix Diluent 1,000 mL Pfizerpen, 7421292 unit(s)= 50 mL, IV Piggyback, q4h Home [...] RANDA DAILEY DO on 12/06/2023 06:48 PM [id number] Evaluation + Plan noteExtracted from: Title:OB Admission H&P Author:ANDREY DAILEY DO Date:12/06/23 The patient is a at 39/ 0wks with an BERNADETTE of 12/12 who presents to [facility] as a transfer from [facility] This is complicated by anxiety chronic [...] This is an opposition to documents from [facility]. She is currently on metformin 500 [...] 10/25/23 * US OB W/Biophysical Profile 11/08/23 [facility] 10-03-[facility]24 Anesthesiology Consult note Patient: DORY [...] index 30+ - obesity / SNOMED CT 931438948 / Confirmed Carpal tunnel syndrome, right / SNOMED CT 01725822 / Confirmed Diabetes mellitus type 1 / SNOMED CT 216694174 / Confirmed Gestational diabetes requiring insulin / SNOMED CT 0789604889 / Confirmed Group B streptococcus / SNOMED CT 130371983 / Confirmed Hypertension / SNOMED CT 3685227260 / Confirmed Encounter for supervision of normal in multigravida in third trimester / SNOMED CT 988369681 / Confirmed / SNOMED CT 561720716 / Confirmed, Active Problems (9) Body mass index 30+ - obesity Carpal tunnel syndrome, right Diabetes Diabetes mellitus type 1 Encounter for supervision of normal in multigravida in third trimester Gestational diabetes requiring insulin Group B streptococcus Hypertension Histories Past Medical History: Resolved ([id number]): Onset on 01/29/2023 at 37 years. Resolved in the month of 03/2023 at 38 years. ([id number]): Onset on 07/23/2020 at 35 years. Resolved on 04/11/2021 at 36 years. Comments: 07/29/2020 EDT 8:51 EDT - SYSTEM System added from documentation. Status documented as Yes on Admission 04/28/2021 EST 9:57 EST - Eve Buchanan LPN postprtum visit 05/26/2021 EDT 9:43 EDT - Eve Buchanan LPN 6wk PP visit ([id number]): Onset on 07/29/2019 at 34 years. Resolved on 04/27/2020 at 35 years. Comments: 05/20/2020 EDT 10:32 EDT - Yanelis Kirkpatrick RNprop sawyer ([id number]): Onset on 06/05/2012 at 27 years. Resolved in 2013 at 28 years. Poor appetite (449361481): Resolved. At risk for ineffective ([id number]): Resolved. Diabetes mellitus type 1 (336303479): Resolved. Family History: Cancer Father () Hypertension Mother Father () Arthritis Mother Heart attack Father () Grandparent () Depression Mother Brother Procedure history: Dilation and curettage of uterus after delivery ([id number]) on 04/12/2021 at 36 Years. Colonoscopy ([id number]) on 04/04/2011 at 26 Years. Social History: [...] Height 162.6 cm Admission Weight 131 kg Raccoon Body Weight 54.74 kg BSA Admission 2.29 [...] motion. Normal strength. Integumentary: Intact, Warm, Dry, Susank. Neurologic: Alert, Oriented, Normal sensory, Normal motor [...] Explanation, Printed materials, Teach-back Preferred Spoken Language Serbian Preferred Written Language Serbian Family/Caregiver Prefer Spoken Language Serbian Family/Caregiver Prefer Written Language Serbian General Infection Prevention Strategies Hand hygiene, Remind [...] Nonreactive Designated Person #1 We May Share [facility] Ricardo [phone] Designated Person #1 Relationship Spouse Privacy Restrictions Requested None Height 162.6 cm Admission Weight 131 kg Raccoon Body Weight 54.74 kg BSA Admission 2.29 [...] No Weight Loss No Preferred Spoken Language Serbian Preferred Written Language Serbian Teaching Evaluation Verbalizes/Nonverbally indicates understanding Safety Brochure Information Reviewed Yes [facility] Sensus Experience Video Viewed Yes Chief Complaint IOL Accompanied by Significant other Information Given by Patient Patient's Current Physicians Emergency Contact Number richard [phone] Reason For Visit OB Induction History of [...] no difficulties Skin Temperature Warm Skin Description Susank, Normal for ethnicity Skin Integrity Intact Sensory Perception Kenn No impairment Moisture Kenn Rarely moist Activity Kenn Walks frequently Mobility Kenn No limitations Nutrition [...] EDT Monitoring Annotations discharged 12/06/2023 8:31 EDT [facility] Summary [facility] Inpatient Discharge Instructions 12/06/2023 8:30 EDT Discharged to Other: To [facility] 12/06/2023 8:25 EDT OB Screen /Para Para [...] labor, Other: transporting by private vehicle to [facility] for Induction Chief Complaint Here for induction, BMI 50.5 [facility] Screen Note OB Screening [facility] Screening Form [facility] 12/06/2023 8:19 EDT [facility] Progress Note 12/06/2023 8:17 EDT Heart [...] in room, discussed with patient transfer to [facility], BP reviewed 12/06/2023 7:33 EDT Temperature Temporal Artery 36.8 DegC Heart Rate Monitored 90 bpm Respiratory Rate 18 br/min Systolic Blood Pressure Non-Invasive 156 mmHg HI Diastolic Blood Pressure Non-Invasive 96 mmHg HI Primary Pain Intensity 0 Pain Scale Type 0-10 Pain scale Baby A FHR Baseline: 155 bpm 12/06/2023 7:02 EDT Progress Note-Nurse BMI . Assessment and Plan [place] Society of Anesthesiologists (ASA) physical status classification: [...] DANO PAGE MD on 12/06/2023 11:10 PM [id number] Hospital Discharge instructions Patient Education 12/06/2023 08:30:38 7 - Labor and Delivery Outpatient Instructions (CUSTOM) [facility] DELIV[facility] OUTPATIENT HOME-GOING INSTRUCTIONS _X_ [...] crackers, bananas, Jell-O, cooked carrots, applesauce. ___ [place] diet. Avoid caffeine, chocolate, alcohol, spiced/greasy foods. [...] the nearest Emergency Room for assistance. Form 110500 D: 02/10 Document Released: 02/19/2006 Document Revised: 02/08/2012 Document Reviewed: 02/19/2006 [facility] Patient Information 2012 [employer]. Follow Up Care 12/06/2023 06:16:48 With:GEORGE DE OLIVEIRA Address: [address] [place] [address] [place] [address] [phone] Business (1) When: Unknown [facility] 10-03-2024 Note Obstetrics progress note: Dory is [...] circumstances regarding her BMI transfer her to [facility] under the care of Dr. Jarvis. Anticipate [...] DE OLIVEIRA MD on 12/06/2023 08:24 AM [facility]10-03-2024 Nurse Progress note Patient arrived to the unit at 0600 for induction of labor. Nurse took patient to ED to obtain accurate ht and wt on admission. Ht 161cm and wt is 289.1 with a BMI of 50.58. Note was left on chart tonotify anesthesia if BMI is greater then 50. Janet López was telephone plant power operator for anesthesia and was notified at 0630 and stated patient is over BMI requirement and is unable to be delivered at [facility] OB unit. Dr Lynn is telephone plant power operator for women's health and was notified of [...] and anesthesias decision to not deliver at [facility] OB. Dr De Oliveira stated he was okay with NST and BP and will be up around 0730 to talk to the patient. Digitally Signed by RADHA Charles on 12/06/2023 07:14 AM [facility]09-02-2024 Hospital Discharge instructions Patient Education 11/05/2023 02:50:30 7 - Labor and Delivery Outpatient Instructions (CUSTOM) [facility] DELIV[facility] OUTPATIENT HOME-GOING INSTRUCTIONS _X_ [...] crackers, bananas, Jell-O, cooked carrots, applesauce. ___ [place] diet. Avoid caffeine, chocolate, alcohol, spiced/greasy foods. [...] the nearest Emergency Room for assistance. Form [id number] D: 02/10 Document Released: 02/19/2006 Document Revised: 02/08/2012 Document Reviewed: 02/19/2006 [facility] Patient Information 2012 [employer]. [facility] 07-21-2024 Hospital Discharge instructions Patient Education 09/23/2023 [...] that stimulates the heart. This includes many srsp-nvq-nwfvrjr cold and sinus decongestant pills and sprays, as well as diet pills. Check the warnings about high blood pressure on thelabel. Before purchasing any gtid-jwr-btdroet medicines or supplements, always ask the pharmacist [...] on home blood pressure monitoring from the [place] [employer]. Don't smoke or drink coffee [...] the face Trouble speaking or seeing [employer]. [address] [place] [address]43. All rights reserved. This information is not [...] pain or redness in one leg [employer]. [address] [place] [address] 17948. All rights reserved. This information is not intended as a substitute for professional medical care. Always follow yourhealthcare professional's instructions. Follow Up Care 09/23/2023 14:44:54 With:GEROGE DE OLIVEIRA MD Address: [address] [place] [address]- [phone] When:2-4 days [facility] 07-21-2024 Emergency department Discharge summary Discharge Instructions Thank you for allowing [facility] to assist you with your healthcare needs. The following is importantdischarge information regarding your hospital visit. Diagnosis from Today's Visit Chest tightness High blood pressure What to Do Next Instructions from Your Care Team No qualifying data available. Post Acute Orders No qualifying data available. You Need to Schedule the Following Appointments Follow Up with GEORGE DE OLIVEIRA MD When:Within 2-4 days Where:[address] [place] [phone]- [phone] Allergies Bydureon swelling and redness SEROquel sulfa [...] that stimulates the heart. This includes many iiyu-cvc-getqggb cold and sinus decongestant pills and sprays, as well as diet pills. Check the warnings about high blood pressure on thelabel. Before purchasing any eidi-npj-grswmjk medicines or supplements, always ask the pharmacist [...] on home blood pressure monitoring from the [place] [employer]. Don't smoke or drink coffee [...] of the face Trouble speaking or seeing [phone] [employer]. [address] [place] [address] 65153. All rights reserved. This information is not [...] Swelling, pain or redness in one leg [phone] [employer]. [address] [place] [address]. All rights reserved. This information is not intended as a substitute for professional medical care. Always follow yourhealthcare professional's instructions. Additional Information VACCINATE! IT SAVES LIVES! Members of the community who have not yet received the COVID-19 vaccine and would like to receive it can visit one of [facility] vaccine clinics. There are many vaccine clinic locations within the [facility]. For locations and available times, please visit www.gettheshot.coronavirus.[place].gov/. It is important to note that some COVID mobile vaccine clinics are held outdoors and may be canceled in rainy or stormy conditions. To learn more about pediatric vaccinations (ages 5-11), we invite you to visit the [facility] webpage. https://www.[facility].org/pages/7404-Pqrnd-Lrfgypvnjiv-Lnxknasyjm-Shrmc-Vch stions.htmlTo learn more about the COVID-19 vaccine, we invite you to visit the CDC website for a list of frequently asked questions. https://www.cdc.gov/coronavirus/2019-ncov/vaccines/faq.html [facility] Patient Portal Access Instructions: Stay connected with your healthcare team and access your personal medical information anytime with the [facility] Patient Portal. If you would like a full copy of your medical records please contact the [facility] Medical Records Department Sunday through Sunday between 8a.m. and 4:30p.m. Please follow the directions below to access the portal: 1.Access the email account you provided upon registration to the [facility].2.Look for an invitation email from [facility].3.Open the email and access the invitation link: [facility] to [facility]4.Fill in the required king to create your account. Sign into www.[email or web address] with your username and password that you [...] you will allow to register on the [facility] Patient Portal for access to your information. You can also access the [facility] Patient Portal on the [employer]. Simply click on Health Records under [employer] and then click on the [employer] logo. HOW TO SAFELY DISPOSE OF PRESCRIPTION [...] Call your local pharmacy or go to http://bit.WARSTUFF/1O9Mb2r to find one close to you.3.Make use of household items: Use cat litter or old coffee grounds to dispose medications if other options arenot available. Mix your drugs with these household products, seal them in an airtight container andthrow it into the garbage. Call [facility]: [phone] to be sure your drugs can be [...] aware that I should contact my doctor. Patient/Parking Manager Signature: Date/Time: Relationship to Patient: Witness Name/Signature: Date/Time: [facility]07-21-2024 Note ORIGINAL EXAMINATION: TWO XRAY VIEWS OF [...] Sign Date: 09/23/2023 5:03:58 PM Ordering Provider: [facility]07-21-2024 Hospital Discharge instructions Patient Education 09/23/2023 14:41:27 7 - Labor and Delivery Outpatient Instructions (CUSTOM) [facility] DEL[facility] OUTPATIENT HOME-GOING INSTRUCTIONS _X_ [...] crackers, bananas, Jell-O, cooked carrots, applesauce. ___ [place] diet. Avoid caffeine, chocolate, alcohol, spiced/greasy foods. [...] the nearest Emergency Room for assistance. Form [id number] D: 02/10 Document Released: 02/19/2006 Document Revised: 02/08/2012 Document Reviewed: 02/19/2006 [employer] Patient Information 2012 [employer]. Follow Up Care 09/23/2023 13:56:24 With:GEORGE DE OLIVEIRA MD Address: [address] [place] [address] [place] [address]- [phone] When: Unknown Comments:Follow-up as scheduled [facility] 07-21-2024 NoteSinus rhythm Baseline wander in lead(s) V3,V4,V5,V6 Electronic Signature: RAYNE MARTI MD 09/23/2023 15:55:30[facility] 01-07-2024 Evaluation + Plan note Future Scheduled Tests Laboratory* hCG, quantitative(AO) 03/11/23 * hCG, quantitative(AO) 03/17/23 * hCG, quantitative(AO) 03/20/23 * hCG, quantitative(AO) 03/08/23 * hCG, quantitative(AO) 04/18/23 * hCG, quantitative(AO) 04/21/23 * hCG, quantitative(AO) 04/24/23 Radiology* US OB W/Biophysical Profile 10/25/23 * US OB W/Biophysical Profile 11/08/23 [facility] 11-04-2023 Note. MICRO - Microbiology PROCEDURE: Affirm [...] Locations *1: This test was performed at: [facility], [address] [place] [address], [phone]- , [facility]01-04-2023 Evaluation + Plan note Future Scheduled Tests Laboratory* HIV 1/2 Ab 01/04/23 [facility] 06-01-2023 Evaluation + Plan note Diagnostic Tests Pending * Estrogen, Fractionated Blood 08/03/22 * Testosterone, Free and Total 08/03/22 Future Scheduled Tests Laboratory* Thyroid Stimulating Hormone 08/29/21 * Free T4 08/29/21 * A1C Hemoglobin 08/29/21 * Complete Blood Count 08/29/21 * Free T3 08/29/21 * Lipid Profile 08/29/21 * Complete Metabolic Panel 08/29/21 [facility] 03-30-2023 Evaluation + Plan note Future Scheduled Tests Laboratory* Pathology Keno Dealer Request 06/01/22 * Thyroid Stimulating Hormone 08/29/21 * Free T4 08/29/21 * A1C Hemoglobin 08/29/21 * Complete Blood Count 08/29/21 * Free T3 08/29/21 * Lipid Profile 08/29/21 * Complete Metabolic Panel 08/29/21 [facility] 03-15-[address] Zazueta [facility] May 17, 2022 3:51pm Note Date/Time May 17, 2022 2:0 4pm [facility] Medical Records Department [address] [place] [id number] Emergency Department Summary 05/17/22 MR#: [id number] Acct: [id number] Name: DORY HENDERSON Rep #:[id number] : 1985 37 From: Jessika Zazueta MD [...] possibility of and has IUD in place. [facility] Medical History BPPV (benign paroxysmal positional vertigo) Home Medications Omeprazole 05/07/20 [History Last Taken Unknown] acetaminophen 500 mg tablet 500 mg PO Q6H PRN PRN Headache 05/07/20 [History Last Taken 05/07/20 15:00 1000 mg] joyksjefeg-oviwhynowhrit-lrrqglhf 50 mg-325 mg-40 mg tablet 1 - [...] 93.9 H Lymph % (Auto) 2.[address] [place] % (Auto) 2.3 Eos % (Auto) 0.1 [...] mg PO Q6H PRN PRN (Reason: Headache) hxeycsgtlc-vptqwgdgcpqja-ybtp 1 TABLET tablet 1 - 2 tab [...] your Primary Care Provider. Call [facility] ([phone]) or report to the closest Emergency Room. Call 911 if necessary. 05/17/22 1551 <Electronically signed by Jessika Zazueta MD> Cosigner Signature (if applicable): CC: Dr. Yanelis Jones MD ~ Signed [facility] Work Phone: 1(690) 248-928202-07-2022 Hospital Discharge instructions Patient Education 04/11/2021 21:12:45 [...] psychosis. Often, a screening tool called the [place] Depression Scale is used to diagnose depression [...] music. Avoid alcohol. Ask for help with millwright supervisor, cooking, grocery shopping, or running errands as needed. Do nottry to do everything. Talk to people close to you about how you are feeling. Get support from your partner, family members, and friends. Try to stay positive in how you think. Think about the things you are grateful for. Do not spend a lot of time alone. Only take qrsb-ciw-wstqyvl or prescription medicine as directed by your [...] not doing well or get worse. Resource: [facility] Patient Information 2015 [employer] [facility]. This information is not intended to [...] 02/19/2006 Document Revised: 02/24/2014 Document Reviewed: 12/12/2013 [facility] Patient Information 2015 [employer]. This information is not intended to replace [...] Follow these instructions at home: Medicines Take hxcn-cqw-vpazumk and prescription medicines only as told by [...] 02/16/2001 Document Revised: 08/02/2016 Document Reviewed: 03/05/2016 [employer] Interactive Patient Education 2019 [employer]. Follow Up Care 04/11/2021 08:39:57 With:GEORGE DE OLIVEIRA Address: [address] [place] [phone]- [phone] Business (1) When:Within 5 Day(s) Comments:for blood pressure check With:GEORGE DE OLIVEIRA MD Address: [address] [place] [phone]- [phone] When: Unknown Comments:please schedule a visit for 3 weeks post delivery [facility] 01-31-2022 Hospital Discharge instructions Patient Education 04/04/2021 02:22:18 [facility] Outpatient Instructions (AORN) [facility] DELIV[facility] OUTPATIENT HOME-GOING INSTRUCTIONS _X_ [...] crackers, bananas, Jell-O, cooked carrots, applesauce. ___ [place] diet. Avoid caffeine, chocolate, alcohol, spiced/greasy foods. [...] the nearest Emergency Room for assistance. Form [id number] D: 02/10 Follow Up Care 04/04/2021 01:07:42 With:Follow up with primary care provider Address: When: Unknown Comments:pt has appt this am for US and office visit [facility] 01-24-2022 Hospital Discharge instructions Patient Education 03/28/2021 12:12:04 7 - Labor and Delivery Outpatient Instructions (CUSTOM) [facility] DEL[facility] OUTPATIENT HOME-GOING INSTRUCTIONS _X_ [...] crackers, bananas, Jell-O, cooked carrots, applesauce. ___ [place] diet. Avoid caffeine, chocolate, alcohol, spiced/greasy foods. [...] the nearest Emergency Room for assistance. Form [id number] D: 02/10 Document Released: 02/19/2006 Document Revised: 02/08/2012 Document Reviewed: 02/19/2006 [employer]Care Patient Information 2011 [employer]. [facility] 01-17-2022 Hospital Discharge instructions Patient Education 03/21/2021 16:15:55 7 - Labor and Delivery Outpatient Instructions(CUSTOM) [facility] DELIV[facility] OUTPATIENT HOME-GOING INSTRUCTIONS _X_ [...] crackers, bananas, Jell-O, cooked carrots, applesauce. ___ [place] diet. Avoid caffeine, chocolate, alcohol, spiced/greasy foods. [...] the nearest Emergency Room for assistance. Form [id number] D: 02/10 Document Released: 02/19/2006 Document Revised: 02/08/2012 Document Reviewed: 02/19/2006 [facility] Patient Information 2012 [employer]. 03/21/2021 16:14:07 24-Hour Urine Collection 24-Hour Urine [...] you may eat and drink normally. Take rrba-bhg-pcohnvh and prescription medicines only as told by your health care provider. Let your health care provider know about any medicines that you are taking, including wabv-hda-aoxyjjo medicines, vitamins, herbs, and supplements. Choose a [...] 05/18/2009 Document Revised: 06/09/2019 Document Reviewed: 03/04/2018 [employer] Patient Education 2020 [employer] Follow Up Care 03/21/2021 15:20:51 With:GEORGE DE OLIVEIRA MD Address: [phone] When:03/31/2021 16:13:00 [facility] 01-13-2022 Evaluation + Plan note Future Scheduled Tests Laboratory* Antibody Screen Gel 03/17/21 * Type and Screen (AO) 03/17/21 * Thyroid Stimulating Hormone 08/29/21 * Free T4 08/29/21 * A1C Hemoglobin 08/29/21 * Complete Blood Count 08/29/21 * Free T3 08/29/21 * Lipid Profile 08/29/21 * Complete Metabolic Panel 08/29/21 [facility] 01-10-2022 Hospital Discharge instructions Patient Education 03/14/2021 17:59:10 7 - Labor and Delivery Outpatient Instructions (CUSTOM) [facility] DELIV[facility] OUTPATIENT HOME-GOING INSTRUCTIONS _X_ [...] crackers, bananas, Jell-O, cooked carrots, applesauce. ___ [place] diet. Avoid caffeine, chocolate, alcohol, spiced/greasy foods. [...] the nearest Emergency Room for assistance. Form [id number] D: 02/10 Document Released: 02/19/2006 Document Revised: 02/08/2012 Document Reviewed: 02/19/2006 [employer] Patient Information 2012 [employer]. Follow Up Care 03/14/2021 17:16:13 With:GEORGE DE OLIVEIRA MD Address: [phone] When: Unknown Comments:Follow-up as scheduled [facility] Evaluation + Plan note Future Appointments Appointment Date:12/16/2020 11:00:00 AM Scheduled Provider:GEORGE DE OLIVEIRA MD Location:[facility] Appointment Type: OV OB Routine Follow Up Future Scheduled Tests Laboratory* Panel (AO) 09/27/20 * Panel (AO) 10/18/20 * Glucose 1 Hour Challenge 09/27/20 * Thyroid Stimulating Hormone 09/27/20 * Urine Culture 09/27/20 * A1C Hemoglobin 09/27/20 * Hepatitis C Antibody IgG 09/27/20 * Varicella Zoster Antibody 09/27/20 Radiology* US OB < 14 weeks 09/21/20 [facility] Evaluation + Plan note Future Appointments Appointment Date:01/17/2021 09:30:00 AM Scheduled Provider:GEORGE DE OLIVEIRA MD Location:[facility] Appointment Type:[facility] OB Routine Follow Up Future Scheduled Tests Laboratory* Panel (AO) 09/27/20 * Panel (AO) 10/18/20 * Glucose 1 Hour Challenge 09/27/20 * Thyroid Stimulating Hormone 09/27/20 * Urine Culture 09/27/20 * A1C Hemoglobin 09/27/20 * Hepatitis C Antibody IgG 09/27/20 * Varicella Zoster Antibody 09/27/20 Radiology* US OB < 14 weeks 09/21/20 [facility] Evaluation + Plan note Future Appointments Appointment Date:03/17/2021 09:00:00 AM Scheduled Provider:GEORGE DE OLIVEIRA MD Location:[facility] Appointment Type: OV OB Routine Follow Up Future Scheduled Tests Laboratory* Panel (AO) 09/27/20 * Panel (AO) 10/18/20 * Glucose 1 Hour Challenge 09/27/20 * Thyroid Stimulating Hormone 09/27/20 * Urine Culture 09/27/20 * A1C Hemoglobin 09/27/20 * Hepatitis C Antibody IgG 09/27/20 * Varicella Zoster Antibody 09/27/20 Radiology* US OB < 14 weeks 09/21/20 [facility] Evaluation + Plan note Future Appointments Appointment Date:03/31/2021 09:15:00 AM Scheduled Provider:GEOREG DE OLIVEIRA MD Location:[facility] Appointment Type: OV OB Routine Follow Up [...] Radiology* US OB < 14 weeks 09/21/20 [facility] Evaluation + Plan note Future Appointments Appointment Date:03/31/2021 09:15:00 AM Scheduled Provider:GEORGE DE OLIVEIRA MD Location:[facility] Appointment Type: OV OB Routine Follow Up [...] Radiology* US OB < 14 weeks 09/21/20 [facility] Evaluation + Plan note Future Appointments Appointment Date:03/28/2021 10:30:00 AM Scheduled Provider: Location:[facility] Appointment Type:US OB W/Biophysical Profile Appointment Date:03/31/2021 09:15:00 AM Scheduled Provider:GEORGE DE OLIVEIRA MD Location:[facility] Appointment Type: OV OB Routine Follow Up [...] 09/21/20 * US OB W/Biophysical Profile 03/28/21 [facility] Evaluation + Plan note Future Appointments Appointment Date:04/25/2021 09:00:00 AM Scheduled Provider:GEORGE DE OLIVEIRA MD Location:[facility] Appointment Type: OV Future Scheduled Tests Laboratory* Panel (AO) 09/27/20 * Panel (AO) 10/18/20 * Antibody Screen Gel 03/17/21 * Type and Screen (AO) 03/17/21 * Glucose 1 Hour Challenge 09/27/20 * Thyroid Stimulating Hormone 09/27/20 * Urine Culture 09/27/20 * A1C Hemoglobin 09/27/20 * Hepatitis C Antibody IgG 09/27/20 * Varicella Zoster Antibody 09/27/20 Radiology* US OB < 14 weeks 09/21/20 [facility] Evaluation + Plan note Future Appointments Appointment Date:12/12/2021 09:00:00 AM Scheduled Provider:GEORGE DE OLIVEIRA MD Location:[facility] Appointment Type: OV Annual Exam Appointment Date:12/26/2021 09:45:00 AM Scheduled Provider:GEORGE DE OLIVEIRA MD Location:[facility] Appointment Type:[facility] Future Scheduled Tests Laboratory* Antibody Screen Gel 03/17/21 * Type and Screen (AO) 03/17/21 * Thyroid Stimulating Hormone 08/29/21 * Free T4 08/29/21 * A1C Hemoglobin 08/29/21 * Complete Blood Count 08/29/21 * Free T3 08/29/21 * Lipid Profile 08/29/21 * Complete Metabolic Panel 08/29/21 [facility] Evaluation + Plan note Future Appointments Appointment Date:06/01/2022 09:30:00 AM Scheduled Provider:GEORGE DE OLIVEIRA MD Location:[facility] Appointment Type: OV Annual Exam Future Scheduled Tests Laboratory* Antibody Screen Gel 03/17/21 * Type and Screen (AO) 03/17/21 * Thyroid Stimulating Hormone 08/29/21 * Free T4 08/29/21 * A1C Hemoglobin 08/29/21 * Complete Blood Count 08/29/21 * Free T3 08/29/21 * Lipid Profile 08/29/21 * Complete Metabolic Panel 08/29/21 [facility] Evaluation + Plan note Future Appointments Appointment Date:07/12/2023 09:30:00 AM Scheduled Provider:MERNO CHAVARRIA Location:[facility] Appointment Type: OV OB Routine Follow Up Diagnostic Tests Pending * Rapid Plasma Reagin Test 06/14/23 * Rubella Antibody 06/14/23 Future Scheduled Tests Laboratory* hCG, quantitative(AO) 03/11/23 * hCG, quantitative(AO) 03/17/23 * hCG, quantitative(AO) 03/20/23 * hCG, quantitative(AO) 03/08/23 * hCG, quantitative(AO) 04/18/23 * hCG, quantitative(AO) 04/21/23 * hCG, quantitative(AO) 04/24/23 * HIV 1/2 Ab 01/04/23 [facility] Evaluation + Plan note Future Appointments Appointment Date:07/12/2023 09:30:00 AM Scheduled Provider:MERON CHAVARRIA Location:[facility] Appointment Type: OV OB Routine Follow Up Future Scheduled Tests Laboratory* hCG, quantitative(AO) 03/11/23 * hCG, quantitative(AO) 03/17/23 * hCG, quantitative(AO) 03/20/23 * hCG, quantitative(AO) 03/08/23 * hCG, quantitative(AO) 04/18/23 * hCG, quantitative(AO) 04/21/23 * hCG, quantitative(AO) 04/24/23 * HIV 1/2 Ab 01/04/23 [facility] Evaluation + Plan note Future Appointments Appointment Date:08/30/2023 09:45:00 AM Scheduled Provider:GEORGE DE OLIVEIRA MD Location:[facility] Appointment Type: OV OB Routine Follow Up Future Scheduled Tests Laboratory* hCG, quantitative(AO) 03/11/23 * hCG, quantitative(AO) 03/17/23 * hCG, quantitative(AO) 03/20/23 * hCG, quantitative(AO) 03/08/23 * hCG, quantitative(AO) 04/18/23 * hCG, quantitative(AO) 04/21/23 * hCG, quantitative(AO) 04/24/23 * HIV 1/2 Ab 01/04/23 [facility] Evaluation + Plan note Future Appointments Appointment [...] Count 08/30/23 * HIV 1/2 Ab 01/04/23 [facility] Evaluation + Plan note Future Appointments Appointment Date:11/08/2023 08:00:00 AM Scheduled Provider: Location:[facility] Appointment Type:US OB W/Biophysical Profile Appointment Date:11/08/2023 09:15:00 AM Scheduled Provider:GEORGE DE OLIVEIRA MD Location:[facility] Appointment Type: OV OB Routine Follow Up Appointment Date:11/15/2023 08:00:00 AM Scheduled Provider: Location:[facility] Appointment Type:US OB W/Biophysical Profile Appointment Date:11/15/2023 09:15:00 AM Scheduled Provider:GEORGE DE OLIVEIRA MD Location:[facility] Appointment Type: OV OB Routine Follow Up Appointment Date:11/22/2023 08:00:00 AM Scheduled Provider: Location:[facility] Appointment Type:US OB W/Biophysical Profile Appointment Date:11/22/2023 09:15:00 AM Scheduled Provider:GEORGE DE OLIVEIRA MD Location:[facility] Appointment Type: OV OB Routine Follow Up Appointment Date:11/29/2023 09:15:00 AM Scheduled Provider:GEORGE DE OLIVEIRA MD Location:[facility] Appointment Type: OV OB Routine Follow Up Future Scheduled Tests Laboratory* hCG, quantitative(AO) 03/11/23 * hCG, quantitative(AO) 03/17/23 * hCG, quantitative(AO) 03/20/23 * hCG, quantitative(AO) 03/08/23 * hCG, quantitative(AO) 04/18/23 * hCG, quantitative(AO) 04/21/23 * hCG, quantitative(AO) 04/24/23 Radiology* US OB W/Biophysical Profile 10/25/23 * US OB W/Biophysical Profile 11/08/23 * US OB W/Biophysical Profile 11/15/23 * US OB W/Biophysical Profile 11/22/23 [facility] Evaluation + Plan note Future Appointments Appointment Date:11/15/2023 08:00:00 AM Scheduled Provider: Location:[facility] Appointment Type:US OB W/Biophysical Profile Appointment Date:11/15/2023 09:15:00 AM Scheduled Provider:GEORGE DE OLIVEIRA MD Location:[facility] Appointment Type: OV OB Routine Follow Up Appointment Date:11/22/2023 08:00:00 AM Scheduled Provider: Location:[facility] Appointment Type:US OB W/Biophysical Profile Appointment Date:11/22/2023 09:15:00 AM Scheduled Provider:GEORGE DE OLIVEIRA MD Location:[facility] Appointment Type: OV OB Routine Follow Up Appointment Date:11/29/2023 09:15:00 AM Scheduled Provider:GEORGE DE OLIVEIRA MD Location:[facility] Appointment Type: OV OB Routine Follow Up Future Scheduled Tests Laboratory* hCG, quantitative(AO) 03/11/23 * hCG, quantitative(AO) 03/17/23 * hCG, quantitative(AO) 03/20/23 * hCG, quantitative(AO) 03/08/23 * hCG, quantitative(AO) 04/18/23 * hCG, quantitative(AO) 04/21/23 * hCG, quantitative(AO) 04/24/23 Radiology* US OB W/Biophysical Profile 10/25/23 * US OB W/Biophysical Profile 11/08/23 * US OB W/Biophysical Profile 11/15/23 * US OB W/Biophysical Profile 11/22/23 [facility] Evaluation + Plan note Future Appointments Appointment Date:11/29/2023 08:00:00 AM Scheduled Provider: Location:[facility] Appointment Type:US OB W/Biophysical Profile Appointment Date:11/29/2023 09:15:00 AM Scheduled Provider:GEORGE DE OLIVEIRA MD Location:[facility] Appointment Type: OV OB Routine Follow Up Future Scheduled Tests Laboratory* hCG, quantitative(AO) 03/11/23 * hCG, quantitative(AO) 03/17/23 * hCG, quantitative(AO) 03/20/23 * hCG, quantitative(AO) 03/08/23 * hCG, quantitative(AO) 04/18/23 * hCG, quantitative(AO) 04/21/23 * hCG, quantitative(AO) 04/24/23 Radiology* US OB W/Biophysical Profile 11/29/23 * US OB W/Biophysical Profile 10/25/23 * US OB W/Biophysical Profile 11/08/23 [facility] Evaluation + Plan note Future Appointments Appointment Date:02/25/2024 09:45:00 AM Scheduled Provider:GEORGE DE OLIVEIRA MD Location:[facility] Appointment Type: OV Future Scheduled Tests Laboratory* hCG, quantitative(AO) 03/11/23 * hCG, quantitative(AO) 03/17/23 * hCG, quantitative(AO) 03/20/23 * hCG, quantitative(AO) 03/08/23 * hCG, quantitative(AO) 04/18/23 * hCG, quantitative(AO) 04/21/23 * hCG, quantitative(AO) 04/24/23 Radiology* US OB W/Biophysical Profile 10/25/23 * US OB W/Biophysical Profile 11/08/23 [facility] Evaluation + Plan note Future Appointments Appointment Date:11/22/2023 08:00:00 AM Scheduled Provider: Location:[facility] Appointment Type:US OB W/Biophysical Profile Appointment Date:11/22/2023 09:15:00 AM Scheduled Provider:GEORGE DE OLIVEIRA MD Location:[facility] Appointment Type: OV OB Routine Follow Up [...] 11/08/23 * US OB W/Biophysical Profile 11/22/23 [facility] Evaluation + Plan note Future Appointments Appointment Date:07/17/2024 09:30:00 AM Scheduled Provider:YVON NOE MD Location:[facility] Appointment Type:ENDO PHYSIOGNOMIST Future Scheduled Tests Laboratory* hCG, quantitative(AO) 04/18/23 * hCG, quantitative(AO) 04/21/23 * hCG, quantitative(AO) 04/24/23 Radiology* US OB W/Biophysical Profile 10/25/23 * US OB W/Biophysical Profile 11/08/23 [facility] Evaluation + Plan note Future Appointments Appointment Date:07/17/2024 09:30:00 AM Scheduled Provider:YVON NOE MD Location:[facility] Appointment Type:ENDO PHYSIOGNOMIST Future Scheduled Tests Laboratory* hCG, quantitative(AO) 04/24/23 Radiology* US OB W/Biophysical Profile 10/25/23 * US OB W/Biophysical Profile 11/08/23 [facility] Evaluation + Plan note Future Appointments Appointment Date:07/31/2024 12:00:00 PM Scheduled Provider:YVON NOE MD Location:[facility] Appointment Type:ENDO OV Appointment Date:03/02/2025 09:30:00 AM Scheduled Provider:GEORGE DE OLIVEIRA MD Location: [facility] Appointment Type: OV Annual Exam Future Scheduled Tests Laboratory* Cortisol Level 07/24/24 * Albumin/Creatinine Ratio, Random Urine 07/17/24 * MISC Lab Send out (Blood Specimens) 07/24/24 Radiology* US OB W/Biophysical Profile 10/25/23 * US OB W/Biophysical Profile 11/08/23 [facility] Evaluation + Plan note Future Appointments Appointment Date:07/31/2024 11:00:00 AM Scheduled Provider:YVON NOE MD Location:[facility] Appointment Type:ENDO OV Appointment Date:03/02/2025 09:30:00 AM Scheduled Provider:GEORGE DE OLIVEIRA MD Location:[facility] Appointment Type: OV Annual Exam Diagnostic Tests Pending * Dexamethasone Serum 07/29/24 Future Scheduled Tests Laboratory* Albumin/Creatinine Ratio, Random Urine 07/17/24 Radiology* US OB W/Biophysical Profile 10/25/23 * US OB W/Biophysical Profile 11/08/23 [facility] Evaluation + Plan note Future Appointments Appointment Date:09/04/2024 02:45:00 PM Scheduled Provider:YVON NOE MD Location:[facility] Appointment Type:ENDO OV Appointment Date:03/02/2025 09:30:00 AM Scheduled Provider:GEORGE DE OLIVEIRA MD Location:[facility] Appointment Type:[facility] Annual Exam Diagnostic Tests Pending * Cortisol, Urinary Free 08/05/24 * MISC Lab Send Out (Non-Blood Specimens) 08/05/24 Future Scheduled Tests Laboratory* Albumin/Creatinine Ratio, Random Urine 07/17/24 Radiology* US OB W/Biophysical Profile 10/25/23 * US OB W/Biophysical Profile 11/08/23 [facility] Evaluation + Plan note Future Appointments Appointment Date:01/08/2025 10:30:00 AM Scheduled Provider:YVON NOE MD Location:[facility] Appointment Type:ENDO OV Appointment Date:03/02/2025 09:30:00 AM Scheduled Provider:GEORGE DE OLIVEIRA MD Location:[facility] Appointment Type: OV Annual Exam Future Scheduled [...] Level 11/05/24 * Complete Metabolic Panel 11/05/24 [facility] Evaluation noteNo assessment information available [facility] Work Phone: Evaluation note* Diagnosis Onset Date Resolution Status BPPV (benign paroxysmal positional vertigo) acute [facility] Work Phone: Hospital course Narrative No data available for this section [facility] Hospital Discharge instructions No data available for this section [facility] Progress note No data available for this section [facility] Advance Directives No Advanced Directives Records Found Advance Directive Response Recorded Date/ Time Living Will No May 08, 2020 1:36am 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 Maintenance No May 08 1:36am Advance Directive Response Recorded Date/ Time Living Will No May 17, 2022 1:05pm 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 Maintenance No May 17 1:05pm Chief Complaint and [...] Member Role: Primary Care Physician Address: Address: [address] [place] [address] Care Team Related Persons Name: NKECHI CABRALES Address: [place] [address] Name: RICARDO CABRALES Name: BECCA CABRALES Address: [place] [address] Care Team Personnel Name: YANELIS JONES MD Member Role: Primary Care Physician Address: Address: [address] [place] [address] Care Team Related Persons Name: NKECHI CABRALES Address: [place] [address] Name: CABRALES RICARDO Opal Name: BECCA CABRALES Address: [place] [address] Care Team Personnel Name: YANELIS JONES MD Member Role: Primary Care Physician Address: Address: [address] [place] [address] Care Team Related Persons Name: NKECHI CABRALES Address: Home [address] [place] [address] Name: RICARDO CABRALES Name: BECCA CABRALES Address: [place] [address] Care Teams (unrecognized sec tion and content) [...] section and content) DATE CREATED AUTHOR 12/16/2022 [facility] DATE CREATED AUTHOR AUTHOR'S ORGANIZ ATION 11/10/2023 [facility] ([place]) DATE CREATED AUTHOR AUTHOR'S ORGANIZ ATION 02/17/2024 [facility] DATE CREATED AUTHOR AUTHOR'S ORGANIZ ATION 12/21/2024 [facility] DATE CREATED AUTHOR AUTHOR'S ORGANIZ ATION 01/09/2025 [facility] DATE CREATED AUTHOR AUTHOR'S ORGANIZ ATION 01/15/2025 [facility] FOR RECORDS PERTAINING TO PATIENTS WHO [...] BE BASED ON THE PRIMARY CLINICAL RECORDS. [facility] [employer] [facility]. provides no warranty or guarantee of the accuracy or completeness of information in this document.
[2025-02-17 22:30] VITALS: BMI 40.6
[2025-02-17 22:32] VITALS: BP 155/102; PULSE 87; RESP 18; TEMP 36.7; O2SAT 100
--- NOTE | 2025-02-17 22:39 | PCM.HP.STD ---
HPI - General General Date of Admission: 02/17/25 HPI Narrative DORY HENDERSON, is a 40 F who presents to the hospital with right upper quadrant abdominal pain that has been occurring after food for about a week. She says that she has had pain in the past that she thinks might be similar that she was actually scheduled to see gastroenterology for about a year ago but never got around to making the appointment. She has noticed increasing severity of pain over the last week with nausea and vomiting. She presented to the ER for this pain and was found to have cholecystitis with possible choledocholithiasis given the common bile duct being 8 mm with elevated AST, ALT, and alk phos. Pain is controlled now with narcotics in the emergency room but general surgery was consulted and is planning for a cholecystectomy with an intraoperative cholangiogram to evaluate for choledocholithiasis which may necessitate the eventual consultation of gastroenterology for ERCP. [facility] Medical History ADHD Concentration deficit induced hypertension, ESTHER (generalized anxiety disorder) History of depression Earache, left Wears glasses Depression Anxiety Alcohol use Diabetes Fatty liver Back pain Migraine headache Dietary restriction History of ulceration Gastric reflux Non-smoker Shortness of breath on exertion Hypertension Infestation by mites Contact dermatitis Carpal tunnel syndrome Acute otitis media, right Tonsillolith Allergic dermatitis GERD (gastroesophageal reflux disease) Diabetes type 2, controlled High blood pressure BPPV (benign paroxysmal positional vertigo) Pre-eclampsia, Home Medications ?Medication ?Instructions ?Recorded ?Last Taken ?Type blood sugar diagnostic (OneTouch #200 ea 05/31/23 Unknown Rx Verio test strips) amlodipine 5 mg tablet 5 mg PO QDAY 03/12/24 02/14/25 History metformin 1,000 mg tablet 1,000 mg PO BID #180 tabs 05/08/24 02/14/25 Rx liraglutide 0.6 mg/0.1 mL (18 mg/3 1.8 mg subcut Q24H 09/02/24 02/14/25 History mL) subcutaneous pen injector ondansetron 4 mg disintegrating 4 mg PO Q8H PRN PRN Nausea #10 tabs 09/10/24 02/14/25 Rx tablet pantoprazole 40 mg tablet,delayed 40 mg PO DAILY #30 tabs 11/06/24 02/14/25 Rx release clonazepam 0.5 mg tablet (Klonopin) 0.5 mg PO DAILY PRN anxiety #15 12/26/24 02/03/25 Rx tabs atomoxetine 80 mg capsule 80 mg PO QDAY #30 caps 01/13/25 02/14/25 Rx buspirone 15 mg tablet 15 mg PO TID #90 tabs 01/13/25 02/14/25 Rx hydrochlorothiazide 25 mg tablet 25 mg PO DAILY 02/17/25 02/14/25 History pen needle, diabetic 32 gauge x 02/17/25 Unknown History Allergy/AdvReac Type Severity Reaction Status Date / Time quetiapine fumarate (From Allergy Other Verified 02/17/25 16:37 Seroquel) exenatide (From Bydureon AdvReac Intermediate Swelling Verified 02/17/25 16:37 BCise) Sulfa (Sulfonamide AdvReac Diarrhea Verified 02/17/25 16:37 Antibiotics) Family History Mother Arthritis Anxiety Fibromyalgia Depression Hypertension Grandfather Colon cancer Father Heart disease Hypertension Myocardial infarction Cancer lung/kidney Surgical History History of hysteroscopy History of esophagogastroduodenoscopy (EGD) Social History (Updated 09/10/24 @ 09:[address] 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 pets and animals: Yes Smoking Status: Never smoker Electronic Cigarette Use: not used alcohol intake: current alcohol intake frequency: holidays/special occasions only substance use type: does not use caffeine: Yes (3) Type: carbonated beverages what type of physical activity do you participate in: walking frequency: daily seatbelt use: always do you feel safe at home: Yes ROS Constitutional Constitutional: Reports chills; Denies fatigue, fever(s) or malaise Eyes Eyes: Denies blurry vision ENT HEENT: Denies headache(s) or nasal discharge Cardiovascular Cardiovascular: Denies chest pain, dyspnea on exertion or syncope Respiratory/Chest Respiratory/Chest: Denies cough, shortness of breath at rest or shortness of breath with exertion Gastrointestinal Gastrointestinal: Reports abdominal pain, nausea and vomiting; Denies constipation or diarrhea Genitourinary Genitourinary: Denies dysuria Neurologic Neurologic: Denies focal weakness, numbness or tremor(s) Psychiatric Psychiatric: Denies anxiety or depression Vital Signs Vital Signs Vital Signs: 02/17/25 16:37 02/17/25 20:00 02/17/25 21:40 Temperature 96.1 F L 98.3 F Temperature Source Temporal Pulse Rate 103 H 100 68 Respiratory Rate 18 17 18 Blood Pressure 159/107 H 171/100 H 149/92 H Blood Pressure Mean 124 123 111 Blood Pressure Source Blood Pressure Position Blood Pressure Location Pulse Ox 98 99 99 Oxygen Delivery Method Room Air Room Air 02/17/25 21:40 02/17/25 22:32 Temperature 98.3 F 98.1 F Temperature Source Oral Oral Pulse Rate 66 87 Respiratory Rate 18 18 Blood Pressure 149/92 H 155/102 H Blood Pressure Mean 111 119 Blood Pressure Source Monitor Blood Pressure Position Semi-Fowlers Blood Pressure Location Right Arm Pulse Ox 99 100 Oxygen Delivery Method Room Air Room Air Weight Weight: 236 lb 12.423 oz Body Mass Index (BMI) 40.6 Physical Exam Narrative General: Alert, Oriented x3, Cooperative, No apparent distress HEENT: Atraumatic, PERRLA, EOMI, Normocephalic Oral: Moist Mucosa Neck: Supple, No JVD Lungs: Clear to auscultation, Normal air movement, No rhonchi, No wheeze, No rales Cardiovascular: Tachycardic, Regular Rhythm, Normal S1, Normal S2, No murmurs Abdomen: Soft, RUQ TTP, Non-Distended, No Hepato-splenomegaly Extremities: No edema, Capillary Refill Less than 3 Seconds Skin: No rashes, No breakdown Musculoskeletal: No Tenderness to Palpation of Joints or Extremities Neurological: No focal neurological deficits, moves all extremities Psych/Mental Status: Normal Affect, Appropriate Results Lab / Micro Data 02/17/25 17:06 02/17/25 17:06 Labs: Laboratory Results - last 24 hr 02/17/25 17:06: WBC 10.2, RBC 5.54 H, Hgb 14.4, Hct 44.5, MCV 80.3 L, MCH 26.0 L, MCHC 32.4, RDW Std Deviation 40.4, RDW Coeff of Drake 13.8, Plt Count 353, MPV 10.2, Immature Gran % (Auto) 0.400, Neut % (Auto) 69.0, Lymph % (Auto) 19.8, [place] % (Auto) 6.3, Eos % (Auto) 4.2, Baso % (Auto) 0.3, Absolute Neuts (auto) 7.0, Absolute Lymphs (auto) 2.02, Nucleated RBC % 0, Sodium 138, Potassium 4.2, Chloride 102, Carbon Dioxide 26.8, Anion Gap 10, BUN 8, Creatinine 0.71, Estim Creat Clear Calc 112.56, Est GFR (MDRD) Non-Af 111, BUN/Creatinine Ratio 11.1, Glucose 196 H, Calcium 9.4, Total Bilirubin 1.41 H, AST 241 H, ALT 280 H, Alkaline Phosphatase 299 H, Total Protein 7.6, Albumin 4.1, Globulin 3.4, Albumin/Globulin Ratio 1.2, Lipase 54, Serum , Qual NEGATIVE 02/17/25 20:55: Urine Color Val[place], Urine Clarity Clear, Urine pH 6.0, Ur Specific [place] 1.010, Urine Protein 30 H, Urine Glucose (UA) Normal, Urine Ketones Negative, Urine Occult Blood Negative, Urine Nitrite Negative, Urine Bilirubin Negative, Urine Urobilinogen 1 H, Ur Leukocyte Esterase 25 H, Urine RBC 0 SEEN, Urine WBC 5-10 SEEN, Ur Squamous Epith Cells 0-5 SEEN, Urine Bacteria 2+, Urine Mucus 0 SEEN Imaging Radiology Impression Gallbladder Ultrasound 02/17/25 19:41 IMPRESSION: Acute cholecystitis with multiple gallstones, mild gallbladder wall thickening, and positive Daugherty's sign. Hepatomegaly and hepatic steatosis. Reading Location: [id number] Assessment & Plan Assessment/Plan (1) Acute cholecystitis: PLAN: Plan 1. Acute cholecystitis with possible choledocholithiasis ? Will consult general surgery ? Continue with Zosyn ? Pain management ? N.p.o. ? May need to consult GI depending on the findings intraoperatively 2. Essential HTN ? Will hold her hydrochlorothiazide but continue with her Norvasc ? Creatinine is stable ? Will monitor make adjustments as necessary 3. DM2 ? Insulin ? Accu-Cheks ? Will monitor and make adjustments as necessary ? Hold her home medications 4. GERD ? Stable ? Continue with PPI 5. Anxiety/depression ? Stable ? Continue with BuSpar and clonazepam DVT: SCDs 75 minutes was spent on direct patient care, including documentation as well as chart review and collaboration with colleagues Charges/Coding Visit Charges Inpatient E&M: 32111 Init Hosp L3
[2025-02-17] MEDS: 0.9% Normal Saline (1000mL) 1,000 ML 75 ML IV (23:00)
[2025-02-17] MEDS: 0.9% Saline Lock 10 ML Syringe IV (23:00)
[2025-02-18] VITALS (15 sets, daily range): BP systolic 121–143; BP diastolic 70–90; PULSE 72–126; RESP 16–20; TEMP 36.3–36.8; O2SAT 93–99; BMI 40.6
--- NOTE | 2025-02-18 01:21 | EKG12_ITS ---
Test Reason : PRE-OP Blood Pressure : */* mmHG Vent. Rate : 72 BPM Atrial Rate : 72 BPM P-R Int : 144 ms QRS Dur : 90 ms QT Int : 440 ms P-R-T Axes : 36 41 51 degrees QTcB Int : 481 ms Normal sinus rhythm Nonspecific ST and T wave abnormality -could be baseline artifact Prolonged QT Abnormal ECG When compared with ECG of 14-Apr-2024 19:31, Nonspecific T wave abnormality now evident in Lateral leads Confirmed by Dave Iverson ([id number]), editor index ESTELLE RIOS ([id number]) on 02/18/2025 10:15:54 AM Referred By: JEFF Confirmed By: Dave Iverson
[2025-02-18] MEDS: Piperacil/Tazobactam 3.375 GM in 0.9% Normal Saline (50mL MB+) 50 ML IV ×3 (05:08→21:49)
[2025-02-18 05:57] LABS: Hematocrit 36.8 % (37-47); Hemoglobin 12.5 g/dL (12.0-15.0); Immature Granulocytes Count 0.060 X10^3/uL (0.0-0.0); Mean Corp Hgb Conc 34.0 g/dL (32-36); Mean Corpuscular Volume 78.8 fL (81-99); Mean Platelet Vol. 10.2 fl (6.2-12.0); NRBC Flagged by Analyzer 0 % (0-5); Platelet Count 280 K/mm3 (150-450); RBC Distribution Width CV 13.9 % (11.6-14.6); RBC Distribution Width SD 39.8 fl (35.1-43.9); Red Blood Count 4.67 M/mm3 (4.2-5.4); White Blood Count 11.5 K/mm3 (4.4-11.0)
--- NOTE | 2025-02-18 06:45 | RAD_ITS ---
PROCEDURE: CHOLANGIOGRAM/ O R,INITIAL 02/18/2025 REASON FOR EXAM: ABD PAIN TECHNIQUE: Procedure Code: RADCHO Modality: DX Procedure: CHOLANGIOGRAM/ O R,INITIAL. Fluoroscopy: 13.4 seconds. Radiation dose: 9.49 mGy. COMPARISON: None FINDINGS: Intraoperative fluoroscopic services provided for or cholangiogram. Contrast is seen within the intrahepatic biliary ducts. The common bile duct is not dilated. Tiny filling defect is seen in the distal common bile duct. This may represent a retained calculus. There is free flow of contrast into the duodenum. RAD/Cholangiogram/ O R,Initial IMPRESSION: Tiny filling defects seen in the distal portion of the common bile duct althoug h there is flow of contrast into the duodenum. A retained calculus should be ruled out. Reading Location: [id number]
[2025-02-18 06:50] LABS: AST(SGOT) 92 U/L (<=31); Alanine Aminotransfer ALT/SGPT 189 U/L (<=34); Albumin, Serum 3.6 g/dL (3.5-5.0); Alkaline Phosphatase 238 U/L (35-104); Anion Gap 11 (5-15); BUN 10 mg/dL (4-19); BUN/Creat Ratio 12.9 RATIO (10-20); Calcium,Total 8.7 mg/dL (7.6-11.0); Carbon Dioxide 23.4 mmol/L (21.0-32.0); Chloride 104 mmol/L (98-108); Estimated Creatinine Clearance 121.67 ml/min (50-250); Globulin 2.9 g/dL (2.2-4.2); Glucose 130 mg/dL (70-99); Potassium 3.4 mmol/L (3.3-5.1)
--- NOTE | 2025-02-18 08:27 | PN.SURG_ITS ---
Subjective Subjective Patient evaluated resting comfortably in bed. She denies any abdominal pain at this time. Objective Data Objective Data Vital Signs: Vital Signs Temp Pulse Resp BP Pulse Ox O2 Del Method 98.1 F 74 16 143/90 H 99 Room Air 02/18/25 05:07 02/18/25 05:07 02/18/25 05:07 02/18/25 05:07 02/18/25 05:07 02/18/25 05:07 Oxygen Delivery Method Room Air Weight: 236 lb 12.423 oz Body Mass Index (BMI) 40.6 Intake & Output: Intake and Output for Last 24 Hours 02/16/25 02/17/25 02/18/25 23:59 23:59 23:59 Intake Total 150 / 150 Balance 150 / 150 Lab / Micro Data 02/18/25 05:18 02/18/25 05:18 Labs: Laboratory Results - last 24 hr 02/17/25 17:06: WBC 10.2, RBC 5.54 H, Hgb 14.4, Hct 44.5, MCV 80.3 L, MCH 26.0 L , MCHC 32.4, RDW Std Deviation 40.4, RDW Coeff of Drake 13.8, Plt Count 353, MPV 10.2, Immature Gran % (Auto) 0.400, Neut % (Auto) 69.0, Lymph % (Auto) 19.8, [place] % (Auto) 6.3, Eos % (Auto) 4.2, Baso % (Auto) 0.3, Absolute Neuts (auto) 7.0, Absolute Lymphs (auto) 2.02, Nucleated RBC % 0, Sodium 138, Potassium 4.2, Chloride 102, Carbon Dioxide 26.8, Anion Gap 10, BUN 8, Creatinine 0.71, Estim Creat Clear Calc 112.56, Est GFR (MDRD) Non-Af 111, BUN/Creatinine Ratio 11.1, G lucose 196 H, Calcium 9.4, Total Bilirubin 1.41 H, AST 241 H, ALT 280 H, A lkaline Phosphatase 299 H, Total Protein 7.6, Albumin 4.1, Globulin 3.4, Albumin/Globulin Ratio 1.2, Lipase 54, Serum , Qual NEGATIVE 02/17/25 20:55: Urine Color Valeria, Urine Clarity Clear, Urine pH 6.0, Ur Specific [place] 1.010, Urine Protein 30 H, Urine Glucose (UA) Normal, Urine Ketones Negative, Urine Occult Blood Negative, Urine Nitrite Negative, Urine Bilirubin Negative, Urine Urobilinogen 1 H, Ur Leukocyte Esterase 25 H, Urine RBC 0 SEEN, Urine WBC 5-10 SEEN, Ur Squamous Epith Cells 0-5 SEEN, Urine Bacteria 2+, Urine Mucus 0 SEEN 02/17/25 22:36: POC Glucose 151 H 02/18/25 05:18: WBC 11.5 H, RBC 4.67, Hgb 12.5, Hct 36.8 L, MCV 78.8 L, MCH 26.8 L, MCHC 34.0, RDW Std Deviation 39.8, RDW Coeff of Drake 13.9, Plt Count 280, MPV 10.2, Immature Gran % (Auto) 0.500, Neut % (Auto) 66.1, Lymph % (Auto) 23.2, [place] % (Auto) 5.6, Eos % (Auto) 4.3, Baso % (Auto) 0.3, Absolute Neuts (auto) 7.6, Absolute Lymphs (auto) 2.67, Nucleated RBC % 0, Sodium 139, Potassium 3.4, Chloride 104, Carbon Dioxide 23.4, Anion Gap 11, BUN 10, Creatinine 0.75, Estim Creat Clear Calc 121.67, Est GFR (MDRD) Non-Af 104, BUN/Creatinine Ratio 12.9, G lucose 130 H, Hemoglobin A1c 6.6 H, Calcium 8.7, Total Bilirubin 0.78, AST 92 H, ALT 189 H, Alkaline Phosphatase 238 H, Total Protein 6.5, Albumin 3.6, Globulin 2.9, Albumin/Globulin Ratio 1.3 02/18/25 06:34: POC Glucose 129 H Radiography Diagnostic Testing: Radiology Impression Gallbladder Ultrasound 02/17/25 19:41 IMPRESSION: Acute cholecystitis with multiple gallstones, mild gallbladder wall thickening, and positive Daugherty's sign. Hepatomegaly and hepatic steatosis. Reading Location: [facility] Physical Exam GI GI Narrative: Abdomen- soft,obese, slight tenderness in the RUQ with palpation. Assessment & Plan Assessment/Plan (1) Acute cholecystitis: PLAN: I am following this patient in conjunction with Dr. Medrano. He has independently evaluated this patient. Labs reviewed. WBC increased. Liver enzymes have decreased Plan for a laparoscopic cholecystectomy with IOC today with Dr. Medrano around noon We will continue to monitor this patient Charges/Coding Visit Charges Inpatient E&M: 82457 Subs Hosp L1 (pre-op; no charge)
--- NOTE | 2025-02-18 09:33 | PN.HOSP_ITS ---
Subjective Subjective Reports still having some right upper quadrant pain though better than when she came in, no nausea at the time of evaluation, no other new or acute complaints Objective Data Objective Data Vital Signs: Vital Signs Temp Pulse Resp BP Pulse Ox O2 Del Method 97.3 F L 79 18 143/90 H 99 Room Air 02/18/25 11:56 02/18/25 11:56 02/18/25 11:56 02/18/25 11:56 02/18/25 11:56 02/18/25 11:56 Oxygen Delivery Method Room Air Weight: 107.4 kg Body Mass Index (BMI) 40.6 Intake & Output: Intake and Output for Last 24 Hours 02/16/25 02/17/25 02/18/25 23:59 23:59 23:59 Intake Total 150 / 150 1050 / 1050 Balance 150 / 150 1050 / 1050 Lab / Micro Data 02/18/25 05:18 02/18/25 05:18 Labs: Laboratory Results - last 24 hr 02/17/25 17:06: WBC 10.2, RBC 5.54 H, Hgb 14.4, Hct 44.5, MCV 80.3 L, MCH 26.0 L , MCHC 32.4, RDW Std Deviation 40.4, RDW Coeff of Drake 13.8, Plt Count 353, MPV 10.2, Immature Gran % (Auto) 0.400, Neut % (Auto) 69.0, Lymph % (Auto) 19.8, [place] % (Auto) 6.3, Eos % (Auto) 4.2, Baso % (Auto) 0.3, Absolute Neuts (auto) 7.0, Absolute Lymphs (auto) 2.02, Nucleated RBC % 0, Sodium 138, Potassium 4.2, Chloride 102, Carbon Dioxide 26.8, Anion Gap 10, BUN 8, Creatinine 0.71, Estim Creat Clear Calc 112.56, Est GFR (MDRD) Non-Af 111, BUN/Creatinine Ratio 11.1, G lucose 196 H, Calcium 9.4, Total Bilirubin 1.41 H, AST 241 H, ALT 280 H, A lkaline Phosphatase 299 H, Total Protein 7.6, Albumin 4.1, Globulin 3.4, Albumin/Globulin Ratio 1.2, Lipase 54, Serum , Qual NEGATIVE 02/17/25 20:55: Urine Color Valeria, Urine Clarity Clear, Urine pH 6.0, Ur Specific [place] 1.010, Urine Protein 30 H, Urine Glucose (UA) Normal, Urine Ketones Negative, Urine Occult Blood Negative, Urine Nitrite Negative, Urine Bilirubin Negative, Urine Urobilinogen 1 H, Ur Leukocyte Esterase 25 H, Urine RBC 0 SEEN, Urine WBC 5-10 SEEN, Ur Squamous Epith Cells 0-5 SEEN, Urine Bacteria 2+, Urine Mucus 0 SEEN 02/17/25 22:36: POC Glucose 151 H 02/18/25 05:18: WBC 11.5 H, RBC 4.67, Hgb 12.5, Hct 36.8 L, MCV 78.8 L, MCH 26.8 L, MCHC 34.0, RDW Std Deviation 39.8, RDW Coeff of Drake 13.9, Plt Count 280, MPV 10.2, Immature Gran % (Auto) 0.500, Neut % (Auto) 66.1, Lymph % (Auto) 23.2, [place] % (Auto) 5.6, Eos % (Auto) 4.3, Baso % (Auto) 0.3, Absolute Neuts (auto) 7.6, Absolute Lymphs (auto) 2.67, Nucleated RBC % 0, Sodium 139, Potassium 3.4, Chloride 104, Carbon Dioxide 23.4, Anion Gap 11, BUN 10, Creatinine 0.75, Estim Creat Clear Calc 121.67, Est GFR (MDRD) Non-Af 104, BUN/Creatinine Ratio 12.9, G lucose 130 H, Hemoglobin A1c 6.6 H, Calcium 8.7, Total Bilirubin 0.78, AST 92 H, ALT 189 H, Alkaline Phosphatase 238 H, Total Protein 6.5, Albumin 3.6, Globulin 2.9, Albumin/Globulin Ratio 1.3 02/18/25 06:34: POC Glucose 129 H 02/18/25 11:17: POC Glucose 128 H Radiography Diagnostic Testing: Radiology Impression Gallbladder Ultrasound 02/17/25 19:41 IMPRESSION: Acute cholecystitis with multiple gallstones, mild gallbladder wall thickening, and positive Daugherty's sign. Hepatomegaly and hepatic steatosis. Reading Location: [facility] Physical Exam Narrative General: Alert, no apparent distress HEENT: Keeps eyes closed due to trying to sleep Eyes: Anicteric, normal conjunctiva, extraocular movements grossly intact Neck: Supple Respiratory: Clear to auscultation bilaterally, normal respiratory effort Cardiovascular: Regular rate and rhythm GI: Soft, lobular tenderness in right upper quadrant without any rebound, guarding, rigidity Extremities: No edema Musculoskeletal: Moving all extremities Neuro: No overt focal neurological deficits Skin: No rashes appreciated Psych: Cooperative Assessment & Plan Assessment/Plan (1) Acute cholecystitis: PLAN: Plan # Acute cholecystitis with possible choledocholithiasis ? Will consult general surgery ? Continue with Zosyn ? Pain management ? N.p.o. ? May need to consult GI depending on the findings intraoperatively -02/18: Remains on Zosyn, patient for surgery today. Further management and/warrant need for GI consultation pending IntraOp findings # Essential HTN ? Will hold her hydrochlorothiazide but continue with her Norvasc ? Creatinine is stable ? Will monitor make adjustments as necessary -02/18: Awaiting surgery, allow room for pain control and anesthetic, can consider resuming home hydrochlorothiazide postoperatively if blood pressure is stable # DM2 ? Insulin ? Accu-Cheks ? Will monitor and make adjustments as necessary ? Hold her home medications -02/18: Continue glucose checks and sliding scale insulin, may need to make adjustments once patient tolerating a diet Chronic medical problems and/or problems not being actively addressed during today's encounter: # GERD ? Stable ? Continue with PPI # Anxiety/depression ? Stable ? Continue with BuSpar and clonazepam DVT: SCDs Time spent in the patient's overall evaluation,decision-making process, review of diagnostic data, adjustment of management, discussion with other providers, nursing nursing and ancillary staff involved in patient's care documentation, 36 Minutes Charges/Coding Visit Charges Inpatient E&M: 17633 Subs Hosp L2
[2025-02-18] MEDS: 0.9% Normal Saline (1000mL) 1,000 ML 15 ML IV (11:19)
--- NOTE | 2025-02-18 11:48 | PCM.PRE.AN2 ---
ASA Classification* ASA Classification ASA Classification: 3 Assessment & Plan Anesthesia* Anesthesia Assessment Anesthesia Assessment: Discussed sedation and/or anesthesia options, risks, benefits, and alternatives with patient/parents/legal guardian/POA. Questions invited. The patient/parents/legal guardian/POA seems to understand and agrees to proceed with anesthesia plan. Reviewed the physical assessment, medical history, allergy history and patient home medications list prior to surgery/procedure/anesthetic and documented any changes. Performed airway and anesthesia risk assessments. Anesthesia Type Anesthesia Type: General History Source History Obtained from:: Patient and Chart Anesthesia Focused Assessment* Temperature: 97.3 F Pulse Rate: 79 Blood Pressure: 143/90 Respiratory Rate: 18 Pulse Ox: 99 Oxygen Delivery Method: Room Air Airway Assessment Mouth opens: >3 cm Mallampati Score: III Teeth Condition: Missing (Patient is missing a right lower molar.) Neck Range of motion (ROM): Full ROM Labs Anesthesia Preop lab: CBC WBC, (4.4-11.0) 11.5 K/mm3 H Today, 05:18 RBC, (4.2-5.4) 4.67 M/mm3 Today, 05:18 Hgb, (12.0-15.0) 12.5 g/dL Today, 05:18 Hct, (37-47) 36.8 % L Today, 05:18 Plt Count, (150-450) 280 K/mm3 Today, 05:18 CHEMISTRY Potassium, (3.3-5.1) 3.4 mmol/L Today, 05:18 Sodium, (133-145) 139 mmol/L Today, 05:18 Magnesium, (1.8-2.4) 3.4 mg/dL H 12/22/13, 12:40 BUN, (4-19) 10 mg/dL Today, 05:18 Creatinine, (0.70-1.20) 0.75 mg/dL Today, 05:18 Glucose, (70-99) 130 mg/dL H Today, 05:18 POC Glucose, (74-106) 128 mg/dL H Today, 11:17 TSH, (0.358-3.74) 1.01 uIU/mL 12/23/19, 15:40 COAG PT, (11.7-14.9) 12.4 SECONDS 12/19/13, 23:10 Urine Test Negative Negative 12/15/22, 09:00 Tst Clinic Negative 03/23/22, 17:32 Pre-Assessment Diagnosis/Proposed Procedure Planned Operative Procedure(s): Laparoscopic cholecystectomy with intraoperative cholangiograms. 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 02/17/25 22:21 Cholinesterase deficiency No 02/17/25 22:21 You/Your Family Experience No 02/17/25 22:21 fever (hyperthermia) with Relationship Recent Exposure to Contagious No 02/17/25 22:21 Disease Does patient have nerve No 02/17/25 22:21 stimulator Patient instructed to have device shut off --Does patient have Pacemaker No 02/18/25 11:14 or ICD? When Was Last Pacemaker Check QUESTION #4 FULL TEXT: You/Your Family Experience fever (hyperthermia) with Anesthesia Last Oral Intake Last Oral intake: Last Oral Intake NPO since 17:00 02/18/25 11:14 Meds taken in AM with sips of No 02/18/25 11:14 water? Meds patient instructed to take am of surgery PONV PONV - government auditor: PONV - government auditor Female HX of Motion Sickness HX of N/V After Surgery Non-Smoker Duration of Surgery greater than 60 minutes Number of Risk Factors PONV Score Height & Weight Height & Weight: Anesthesia: Height & Weight Height 5 ft 4 in 02/18/25 11:14 Weight: 107.4 kg 02/18/25 11:14 Body Mass Index (BMI) 40.6 02/18/25 11:14 Respiratory Assessment Respiratory Assessment - government auditor: Respiratory Tract Infection Hx - government auditor Hx Respiratory Tract Infection No 02/17/25 22:21 STOP Sleep Apnea STOP Sleep Apnea - government auditor: STOP Sleep Apnea - government auditor Hx Hypertension Yes 02/17/25 22:24 Hx Sleep Apnea Yes: recent diagnosis, no 02/17/25 22:24 CPAP at this time CPAP No 02/17/25 22:24 BIPAP No 02/17/25 22:24 Do you snore loudly (louder than talking or can be heard Do you often feel tired/ fatigued/ sleepy during daytime? Has anyone observed you stop breathing during sleep? STOP Results Positive 02/17/25 22:24 QUESTION #5 FULL TEXT : Do you snore loudly (louder than talking or can be heard through closed doors)? 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 Specify any problems Hx of Preganancy in last 3 No 02/17/25 22:24 Months Nurse Filling Out Transfusion EVIZZO 02/17/25 22:24 & Questions: Date: 02/17/25 02/17/25 22:24 Time: 22:45 02/17/25 22:24 Patient unable to answer at this time (ie. confused, unrespo /Reproduction History /Reproductive History - government auditor: /Reproductive Hx- government auditor Hx Now No 02/17/25 22:24 Gestational Age (in weeks): EDC: Hx Hx Para Hx Section SAB No 02/17/25 22:24 Does the father of the baby or his family experience fever w Father of the baby Malignant Hypertension history comment Active Medications Active Medications: Current Medications Generic Name Dose Route Start Last Admin Trade Name Freq PRN Reason Stop Dose Admin Amlodipine Besylate 5 mg 02/18/25 10:00 02/17/25 23:00 Amlodipine 5 Mg Tablet PO 5 mg DAILY NANCY Administration Protocol Buspirone HCl 15 mg 02/17/25 22:28 02/18/25 05:15 Buspirone 15 Mg Tablet PO Not Given TID NANCY Clonazepam 0.5 mg 02/17/25 22:28 Clonazepam 0.5 Mg Tablet PO DAILY PRN PRN ANXIETY Glucagon 1 mg 02/17/25 22:28 Glucagon 1 Mg/Ml Syringe IM X1 PRN HYPOGLYCEMIA Protocol Sodium Chloride 250 mls @ 15 mls/hr 02/17/25 22:26 IV .[id number] PRN Saline Flush Sodium Chloride 250 mls @ 15 mls/hr 02/17/25 22:26 IV .[id number] PRN Additional IVPB Infusion Dextrose 250 mls @ 0 mls/hr 02/17/25 22:28 Dextrose 10%-Water IV .Q0M PRN HYPOGLYCEMIA Protocol As Directed Sodium Chloride 1,000 mls @ 75 mls/hr 02/17/25 22:28 02/18/25 11:09 IV Infused .[id number] NANCY Infusion Piperacillin Sod/Tazobactam 50 mls @ 12.5 mls/hr 02/18/25 06:00 02/18/25 09:08 Sod 3.375 gm/ Sodium Chloride IV Infused Q8 NANCY Infusion Sodium Chloride 1,000 mls @ 15 mls/hr 02/18/25 11:05 02/18/25 11:19 IV 15 mls/hr .Q48H NANCY Administration Insulin Human Lispro 0 unit 02/17/25 22:28 02/18/25 11:47 Insulin Lispro 100 Unit/Ml Insuln.Pen SC Not Given ACHS NANCY Protocol Morphine Sulfate 2 - 4 mg 02/17/25 22:28 Morphine 2 Mg/Ml Syringe IV Q3H PRN PRN Pain Score 6-10 Ondansetron HCl 4 mg 02/17/25 22:28 Ondansetron 4 Mg/2 Ml Vial IV Q8H PRN PRN NAUSEA/VOMITING Pantoprazole Sodium 40 mg 02/18/25 10:00 Pantoprazole Sodium 40 Mg Tablet PO DAILY NANCY Sodium Chloride 10 - 40 ml 02/17/25 22:26 02/17/25 23:00 0.9% Saline Lock 10 Ml Syringe IV 10 ml UD PRN Administration SALINE FLUSH PFSH Medical History ADHD Concentration deficit induced hypertension, ESTHER (generalized anxiety disorder) History of depression Earache, left Wears glasses Depression Anxiety Alcohol use Diabetes Fatty liver Back pain Migraine headache Dietary restriction History of ulceration Gastric reflux Non-smoker Shortness of breath on exertion Hypertension Infestation by mites Contact dermatitis Carpal tunnel syndrome Acute otitis media, right Tonsillolith Allergic dermatitis GERD (gastroesophageal reflux disease) Diabetes type 2, controlled High blood pressure BPPV (benign paroxysmal positional vertigo) Pre-eclampsia, Home Medications ?Medication ?Instructions ?Recorded ?Last Taken ?Type blood sugar diagnostic (OneTouch #200 ea 05/31/23 Unknown Rx Verio test strips) amlodipine 5 mg tablet 5 mg PO QDAY 03/12/24 02/14/25 History metformin 1,000 mg tablet 1,000 mg PO BID #180 tabs 05/08/24 02/14/25 Rx liraglutide 0.6 mg/0.1 mL (18 mg/3 1.8 mg subcut Q24H 09/02/24 02/14/25 History mL) subcutaneous pen injector ondansetron 4 mg disintegrating 4 mg PO Q8H PRN PRN Nausea #10 tabs 09/10/24 02/14/25 Rx tablet pantoprazole 40 mg tablet,delayed 40 mg PO DAILY #30 tabs 11/06/24 02/14/25 Rx release clonazepam 0.5 mg tablet (Klonopin) 0.5 mg PO DAILY PRN anxiety #15 12/26/24 02/03/25 Rx tabs atomoxetine 80 mg capsule 80 mg PO QDAY #30 caps 01/13/25 02/14/25 Rx buspirone 15 mg tablet 15 mg PO TID #90 tabs 01/13/25 02/14/25 Rx hydrochlorothiazide 25 mg tablet 25 mg PO DAILY 02/17/25 02/14/25 History pen needle, diabetic 32 gauge x 02/17/25 Unknown History Allergy/AdvReac Type Severity Reaction Status Date / Time quetiapine fumarate (From Allergy Other Verified 02/18/25 11:14 Seroquel) exenatide (From Bydureon AdvReac Intermediate Swelling Verified 02/18/25 11:14 BCise) Sulfa (Sulfonamide AdvReac Diarrhea Verified 02/18/25 11:14 Antibiotics) Family History Mother Arthritis Anxiety Fibromyalgia Depression Hypertension Grandfather Colon cancer Father Heart disease Hypertension Myocardial infarction Cancer lung/kidney Surgical History History of hysteroscopy History of esophagogastroduodenoscopy (EGD) Social History adopted: No household members: spouse and children current occupational status: disabled 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
--- NOTE | 2025-02-18 12:00 | GALL_PTH ---
PATIENT: DORY HENDERSON LOC: [facility] U#:[id number] AGE/SX: 40/F ROOM: NM317 RE02/17/[address]: Dr. Oliver Javier DO : 1985 BED: 1 DIS: 02/20/2025 SPEC #: [id number] RECD: 02/18/25 18:08 STATUS: CAL REQ #: [id number] ENDER: 02/18/25 12:[address]: Dave Medrano DEPT: SURGICAL PATHOLOGY RECD BY: Gabbi Zayas ENTERED: 02/19/25 10:24 SP TYPE: GALLBLADDE VERITO DR: MD Dr. Oliver Bella DO Dr. Michael Bortz, MD Dr. Nicholas F Kotsonis, MD Dr. Paige Pierce, MD Tissues: Gallbladder, NOS Procedures: Surgery Specimen Level III Comments: @ Ordering doctor for SUIII edited from to @ by ANJEL at 02/23/25 1037 @ Submitting doctor edited from to @ by ANJEL at 02/23/25 1037 HEADER OPERATION: Laparoscopic cholecystectomy with intraoperative PRE-OP DIAGNOSIS: Acute cholecystitis TISSUE SUBMITTED: A. Gallbladder MICROSCOPIC DIAGNOSIS A. Gallbladder, laparoscopic cholecystectomy: - Chronic cholecystitis, cholelithiasis, and cholesterolosis. MICROSCOPIC DESCRIPTION Slides are reviewed. GROSS DESCRIPTION The specimen is received in one properly labeled container. A. ?The specimen is designated gallbladder and consists of an intact but heavily disrupted and ragged gallbladder measuring 7.3 x 3.4 x 2.2 cm. ?The serosa is sheth-bond to bond-purple, smooth and glistening, with multiple areas of red-purple hyperemic discoloration, and multiple areas of slight raggedness and slightly adhesed yellow-sheth lobulated fibroadipose tissue. ?No lymph nodes are yielded in the attached fibrofatty tissue. ?The cystic duct margin is patent, 0.5 cm in diameter and is inked blue. ?The gallbladder is opened to reveal a small amount of yellow-green serous bile admixed with a small quantity (approximately 10) of yellow-sheth bosselated friable calculi individually 0.3 to 0.5 cm in greatest dimension.?Additionally, the bile and calculi are admixed with red-purple congealed apparent blood clot.?The gallbladder mucosa is sheth-yellow to green-brown, velvety, and surfaced by slightly raised yellow-sheth serpiginous reticulations. ?No mucosal polyps, lesions, or other abnormalities are identified, the gallbladder wall thickness averages 0.5 cm. ?RS 1 Cassette Summary: A1, gallbladder mucosa and cystic duct margin AG/OSU 02/20/2025 CPT:87604
[2025-02-18] MEDS: Midazolam 2 MG/2 ML Syringe IV (12:03)
[2025-02-18] MEDS: dexMEDEtomidine 200 MCG/2 ML ML 72 MCG IV (12:08)
[2025-02-18] MEDS: Lidocaine 1% (5 ml sdv) 5 ML Vial IV (12:08)
--- NOTE | 2025-02-18 13:05 | CASEMGMT ---
Dx:Acute cholecystitis LACE:2 6-Clicks:24 Medical record reviewed and patient evaluated for identification of discharge planning needs. Based on this review, at this time criteria are not present to indicate a need for discharge planning. Will remain available to assist with discharge planning needs as identified or requested.
[2025-02-18] MEDS: Piperacil/Tazobactam 3.375 GM/50 ML ML IV (14:06)
--- NOTE | 2025-02-18 14:12 | OP.PCM_ITS ---
Procedures Digestive 40xxx-49xxx: 51640 Laparo cholecystectomy/graph Operative Report (Standard) Operative Information Date of Procedure: 02/18/25 Pre-Operative Diagnosis: Acute cholecystitis Post-Operative Diagnosis: Acute cholecystitis Surgery/Procedure Performed: Laparoscopic cholecystectomy with intraoperative cholangiography access clinician: Yes Project Control Analyst: Blanca Moreno Tasks completed by certified dental assistant: Opening & closing, Retracting and Other (laparoscopic camera operation) Type of Anesthesia: General/Supplemental RN Documented Start/Stop Times: Operation Date: 02/18/25 12:00 Case Time Into Pre-Op 02/18/25 10:48 Out of Pre-Op 02/18/25 11:58 Into Room 02/18/25 12:03 Anesthesia Start 02/18/25 12:04 Procedure Start 02/18/25 12:28 Procedure End 02/18/25 14:19 Anesthesia End 02/18/25 14:25 Out of Room 02/18/25 14:25 Into Recovery 02/18/25 14:28 Out of Recovery 02/18/25 15:41 Procedure Start Time: 12:28 Procedure Stop Time: 14:19 Select all DRAINS/GRAFTS/IMPLANTS that apply: None Estimated Blood Loss: 30 Specimen collected: Yes Description of specimen(s) removed: Gallbladder Description of surgery: After proper identification in the preoperative holding area the patient was brought to the operating room where she was positioned supine on the operating room table. Preoperatively SCDs were connected and antibiotics were confirmed as up-to-date with scheduled dose. General anesthesia was then induced and anesthesia placed an orogastric tube at my request for gastric decompression. Patient's abdomen was prepped and draped in usual sterile fashion. A formal timeout was conducted to confirm both patient and the procedure. Procedure was begun with a supraumbilical incision which was extended deeply down to the level of the fascia. The fascia was elevated and incised, as well as the peritoneum. A finger sweep was performed to ensure there were no underlying adhesions and a 12 mm balloon trocar was inserted. Pneumoperitoneum was established at 15 mmHg. Three additional trocars (all 5 mm) were placed in the epigastrium and in the right upper quadrant. Inspection of the peritoneum revealed no inadvertent injury to the viscera below. The gallbladder was visualized with evidence of acute inflammation. The gallbladder fundus was then grasped and elevated cephalad. Then, using careful dissection the peritoneum was opened and the structures of the hepatocystic triangle were delineated. Once the critical view of safety was obtained, I gauged that the cystic duct diameter was most appropriate for a Contreras clamp?based cholangiogram and the necessary supplies were requested. Once gathered, the cystic duct was clamped and the trocar tip catheter was advanced into the side of the duct. A syringe was attached and the saline within the syringe flushed easily. Under fluoroscopy a cholangiogram was then obtained showing a normal length cystic duct flowing into a common bile duct with flow of contrast in the duodenum, however there were a few nonobstructive filling defects just proximal to the ampulla. There was also retrograde flow through the common hepatic duct into the right and left hepatic ducts. Satisfied with this result, the cholangiocatheter was withdrawn. I attempted to use the 5 mm Hem-o-yelena clips but they simply were slightly too short to span the diameter of the cystic duct so I upsized the subxiphoid port site to a 12 mm trocar and then placed the corresponding clips on the cystic duct via this new entry port. After the cystic duct was sealed with clips it was sharply transected. The same process was used for the cystic artery which appeared to be dominant in the posterior position. There was a anterior cystic artery that appeared to run the length of the gallbladder fossa adjacent to the liver medially and I attempted to preserve it intact by placing clips only on the branches going towards the gallbladder. However, as I proceeded more distally on the gallbladder fossa a sizable branch did give off to the gallbladder and required ligation with clips and division. The gallbladder was then removed from the gallbladder fossa with the use of electrocautery. Hemostasis was confirmed in the gallbladder fossa. The gallbladder was placed in an Endo Catch bag Morison's pouch was irrigated and the effluent was suctioned free of the peritoneum. Hemostasis was again confirmed in the fossa. The gallbladder was removed from the supraumbilical port site and the Endo Catch bag. Then the 212 mm ports at the supraumbilical and subxiphoid positions were closed under laparoscopic vision in a [id number] technique using #1 PDS suture and a Ron Villeda suture passer. Pneumoperitoneum was evacuated and the fascial closures of the 12 mm were tied. A total of 30 mL of 0.25% bupivacaine with epinephrine was injected at the port sites for postoperative pain control. The skin of each port site was then closed in subcuticular fashion using 4-0 Monocryl. Steri-Strips and bandages were applied as dressings. Patient tolerated the procedure well without any apparent complications. On emergence from their anesthetic the patient was taken to PACU for ongoing recovery. Surgical Findings: ? Acutely inflamed gallbladder with edematous planes between the peritoneum and actual surface of the gallbladder as well as to the liver ? Mildly dilated cystic duct ? Cholangiogram showing antegrade filling of the biliary tree through the ampulla of Vater without evidence for significant filling defect (there was nonobstructive debris just proximal). There is normal retrograde filling through the common hepatic as well as the right and left hepatic ducts. Complications Complications: No Admit VTE Documentation VTE Mechan Device Prophylaxis: SCD's
[2025-02-18] MEDS: fentaNYL 100 MCG/2 ML Ampul 300 MCG IV (14:13)
[2025-02-18] MEDS: Bupiv/Epi 0.25% 30 ML Vial (14:13)
--- NOTE | 2025-02-18 14:32 | PCM.POST.ANE ---
Anesthesia: Postop Eval I Current Vital Signs Temperature: 97.5 F Pulse Rate: 117 Blood Pressure: 127/76 Respiratory Rate: 20 Pulse Ox: 93 Assessment Airway patent: Yes Spontaneous unlabored respirations: Yes nausea: No Vomiting: No Anesthesia Complication: No Fluid Hydration Crystalloid volume administer (ml): 1,500 Total IV fluid infused: 1,500 Progress Note Anesthesia document: Postop Eval 1 completed: Yes
[2025-02-18] MEDS: 0.9% Normal Saline (1000mL) 1,000 ML 75 ML IV (16:06)
--- NOTE | 2025-02-18 22:11 | POSTOPAN2_ITS ---
Anesthesia Postop Eval I Sum Postop Eval Completion status Anesthesia document: Postop Eval 1 completed: Yes Anesthesia Postop Eval I Summary Anesthesia Postop Eval I Summary: Anesthesia Postop Eval I: Assessment Summary Airway patent Yes 02/18/25 14:32 MEASUREMENT [email or web address] Spontaneous unlabored Yes 02/18/25 14:32 MEASUREMENT [email or web address].[email or web address] respirations Mental status nausea No 02/18/25 14:32 MEASUREMENT [email or web address].[email or web address] Vomiting No 02/18/25 14:32 MEASUREMENT [email or web address].[email or web address] Anesthesia Postop Eval I: Fluid Summary Crystalloid volume administer 1,500 02/18/25 14:32 MEASUREMENT [email or web address].CSIR (ml) Colloids volume administered ( ml) Blood Product volume administered (ml) Total IV fluid infused 1,500 02/18/25 14:32 MEASUREMENT [email or web address].CSIR Anesthesia Postop Eval I: Summary Notes Anesthesia Complication No 02/18/25 14:32 MEASUREMENT [email or web address].[email or web address] Anesthesia Complication Comment: Post-operative progress note Anesthesia: Postop Eval II Evaluation Mental status: Awake and Calm Pain Level: 2 nausea: No Vomiting: No Complications Anesthesia Complication: No
--- NOTE | 2025-02-18 22:11 | PCM.POSTANE2 ---
Anesthesia Postop Eval I Sum Postop Eval Completion status Anesthesia document: Postop Eval 1 completed: Yes Anesthesia Postop Eval I Summary Anesthesia Postop Eval I Summary: Anesthesia Postop Eval I: Assessment Summary Airway patent Yes 02/18/25 14:32 SEO [email or web address] Spontaneous unlabored Yes 02/18/25 14:32 SEO [email or web address] respirations Mental status nausea No 02/18/25 14:32 SEO [email or web address] Vomiting No 02/18/25 14:32 SEO [email or web address] Anesthesia Postop Eval I: Fluid Summary Crystalloid volume administer 1,500 02/18/25 14:32 SEO [email or web address] (ml) Colloids volume administered ( ml) Blood Product volume administered (ml) Total IV fluid infused 1,500 02/18/25 14:32 SEO [email or web address] Anesthesia Postop Eval I: Summary Notes Anesthesia Complication No 02/18/25 14:32 SEO [email or web address] Anesthesia Complication Comment: Post-operative progress note Anesthesia: Postop Eval II Evaluation Mental status: Awake and Calm Pain Level: 2 nausea: No Vomiting: No Complications Anesthesia Complication: No
[2025-02-19 00:58] VITALS: BP 156/93; PULSE 88; RESP 15; TEMP 37.2; O2SAT 98
[2025-02-19 03:46] VITALS: BP 149/90; PULSE 91; RESP 16; TEMP 37.2; O2SAT 98
[2025-02-19 05:54] LABS: Hematocrit 37.4 % (37-47); Hemoglobin 12.3 g/dL (12.0-15.0); Immature Granulocytes Count 0.120 X10^3/uL (0.0-0.0); Mean Corp Hgb Conc 32.9 g/dL (32-36); Mean Corpuscular Volume 80.3 fL (81-99); Mean Platelet Vol. 10.2 fl (6.2-12.0); NRBC Flagged by Analyzer 0 % (0-5); Platelet Count 343 K/mm3 (150-450); RBC Distribution Width CV 13.7 % (11.6-14.6); RBC Distribution Width SD 39.8 fl (35.1-43.9); Red Blood Count 4.66 M/mm3 (4.2-5.4); White Blood Count 21.7 K/mm3 (4.4-11.0)
[2025-02-19 06:38] LABS: AST(SGOT) 66 U/L (<=31); Alanine Aminotransfer ALT/SGPT 155 U/L (<=34); Albumin, Serum 3.8 g/dL (3.5-5.0); Alkaline Phosphatase 232 U/L (35-104); Anion Gap 12 (5-15); BUN 9 mg/dL (4-19); BUN/Creat Ratio 12.5 RATIO (10-20); Calcium,Total 9.0 mg/dL (7.6-11.0); Carbon Dioxide 22.4 mmol/L (21.0-32.0); Chloride 103 mmol/L (98-108); Estimated Creatinine Clearance 130.36 ml/min (50-250); Globulin 3.0 g/dL (2.2-4.2); Glucose 167 mg/dL (70-99); Potassium 3.8 mmol/L (3.3-5.1)
[2025-02-19] MEDS: Piperacil/Tazobactam 3.375 GM in 0.9% Normal Saline (50mL MB+) 50 ML IV ×3 (06:43→21:03)
--- NOTE | 2025-02-19 08:05 | PCM.PN.SRG ---
Subjective Subjective Patient evaluated resting comfortably in bed. She notes having incisional pain/discomfort in the right upper quadrant. She denies nausea, vomiting. Objective Data Objective Data Vital Signs: Vital Signs Temp Pulse Resp BP Pulse Ox O2 Del Method O2 Flow Rate 98.9 F 91 16 149/90 H 98 Room Air 2 02/19/25 03:46 02/19/25 03:46 02/19/25 03:46 02/19/25 03:46 02/19/25 03:46 02/19/25 05:00 02/19/25 03:46 Oxygen Flow Rate (L/min) 2 Oxygen Delivery Method Room Air Weight: 236 lb 12.423 oz Body Mass Index (BMI) 40.6 Intake & Output: Intake and Output for Last 24 Hours 02/17/25 02/18/25 02/19/25 23:59 23:59 23:59 Intake Total 150 / 150 2100 / 2100 50 / 50 Output Total 530 / 530 900 / 900 Balance 150 / 150 1570 / 1570 -850 / -850 Lab / Micro Data 02/19/25 05:34 02/19/25 05:34 Labs: Laboratory Results - last 24 hr 02/18/25 11:17: POC Glucose 128 H 02/18/25 16:14: POC Glucose 195 H 02/18/25 18:26: POC Glucose 266 H 02/18/25 23:14: POC Glucose 223 H 02/19/25 05:34: WBC 21.7 H, RBC 4.66, Hgb 12.3, Hct 37.4, MCV 80.3 L, MCH 26.4 L, MCHC 32.9, RDW Std Deviation 39.8, RDW Coeff of Drake 13.7, Plt Count 343, MPV 10.2, Immature Gran % (Auto) 0.600, Neut % (Auto) 84.1 H, Lymph % (Auto) 9.9 L, [place] % (Auto) 5.1, Eos % (Auto) 0.1, Baso % (Auto) 0.2, Absolute Neuts (auto) 18.3 H, Absolute Lymphs (auto) 2.16, Nucleated RBC % 0, Sodium 137, Potassium 3.8, Chloride 103, Carbon Dioxide 22.4, Anion Gap 12, BUN 9, Creatinine 0.70, Estim Creat Clear Calc 130.36, Est GFR (MDRD) Non-Af 114, BUN/Creatinine Ratio 12.5, Glucose 167 H, Calcium 9.0, Total Bilirubin 0.72, AST 66 H, ALT 155 H, Alkaline Phosphatase 232 H, Total Protein 6.7, Albumin 3.8, Globulin 3.0, Albumin/Globulin Ratio 1.3 02/19/25 06:37: POC Glucose 165 H Radiography Diagnostic Testing: Radiology Impression Cholangiogram 02/18/25 06:45 IMPRESSION: Tiny filling defects seen in the distal portion of the common bile duct although there is flow of contrast into the duodenum. A retained calculus should be ruled out. Reading Location: [id number] Physical Exam GI GI Narrative: Abdomen- soft, tenderness inferior to the right upper quadrant incisions. No erythema or infection noted. All dressings intact. Assessment & Plan Assessment/Plan (1) Acute cholecystitis: PLAN: I am following this patient in conjunction with Dr. Medrano. He has independently evaluated this patient. Labs reviewed. WBC increased to 21.7, unsure etiology of such an increase. Liver enzymes are trending down Continue IV antibiotics Repeat CBC and CMP around 1 pm today Pending repeat labs, possible discharge later today versus tomorrow. We will continue to monitor this patient Charges/Coding Visit Charges Inpatient E&M: 15593 Subs Hosp L1 (post-op; no charge)
[2025-02-19 09:11] VITALS: BP 172/103; PULSE 91; RESP 16; TEMP 37.2; O2SAT 99
[2025-02-19 10:00] VITALS: O2SAT 99
--- NOTE | 2025-02-19 11:11 | PN.HOSP_ITS ---
Subjective Subjective Saw patient at bedside this morning. Patient was sitting back in bed and mildly uncomfortable due to ongoing abdominal pain, was otherwise answering questions appropriately and in no acute distress. General surgery had seen her this morning and noted that this pain was most consistent with incisional pain. She was advanced to regular diet yesterday evening and has been tolerating this without issue. The medications have been mild to moderately helpful for pain control. She denies any fevers or chills. No other acute concerns at this morning. Objective Data Objective Data Vital Signs: Vital Signs Temp Pulse Resp BP Pulse Ox O2 Del Method O2 Flow Rate 98.9 F 91 16 172/103 H 99 Room Air 2 02/19/25 09:11 02/19/25 09:11 02/19/25 09:11 02/19/25 09:11 02/19/25 09:11 02/19/25 09:11 02/19/25 03:46 Oxygen Flow Rate (L/min) 2 Oxygen Delivery Method Room Air Weight: 107.4 kg Body Mass Index (BMI) 40.6 Intake & Output: Intake and Output for Last 24 Hours 02/17/25 02/18/25 02/19/25 23:59 23:59 23:59 Intake Total 150 / 150 2100 / 2100 50 / 50 Output Total 530 / 530 900 / 900 Balance 150 / 150 1570 / 1570 -850 / -850 Lab / Micro Data 02/19/25 13:05 02/19/25 13:05 Labs: Laboratory Results - last 24 hr 02/18/25 11:17: POC Glucose 128 H 02/18/25 16:14: POC Glucose 195 H 02/18/25 18:26: POC Glucose 266 H 02/18/25 23:14: POC Glucose 223 H 02/19/25 05:34: WBC 21.7 H, RBC 4.66, Hgb 12.3, Hct 37.4, MCV 80.3 L, MCH 26.4 L , MCHC 32.9, RDW Std Deviation 39.8, RDW Coeff of Drake 13.7, Plt Count 343, MPV 10.2, Immature Gran % (Auto) 0.600, Neut % (Auto) 84.1 H, Lymph % (Auto) 9.9 L, [place] % (Auto) 5.1, Eos % (Auto) 0.1, Baso % (Auto) 0.2, Absolute Neuts (auto) 18.3 H, Absolute Lymphs (auto) 2.16, Nucleated RBC % 0, Sodium 137, Potassium 3.8, Chloride 103, Carbon Dioxide 22.4, Anion Gap 12, BUN 9, Creatinine 0.70, Estim Creat Clear Calc 130.36, Est GFR (MDRD) Non-Af 114, BUN/Creatinine Ratio 12.5, Glucose 167 H, Calcium 9.0, Total Bilirubin 0.72, AST 66 H, ALT 155 H, A lkaline Phosphatase 232 H, Total Protein 6.7, Albumin 3.8, Globulin 3.0, Albumin/Globulin Ratio 1.3 02/19/25 06:37: POC Glucose 165 H 02/19/25 10:18: POC Glucose 261 H Radiography Diagnostic Testing: Radiology Impression Cholangiogram 02/18/25 06:45 IMPRESSION: Tiny filling defects seen in the distal portion of the common bile duct although there is flow of contrast into the duodenum. A retained calculus should be ruled out. Reading Location: [id number] Patient's Goals Of Care - F/U Goals Reviewed Goals of care reviewed with patient: NA-No significant change in clinical Status /major procedure scheduled Physical Exam Const alert, oriented x3 and no apparent distress Constitutional Narrative: Young middle-aged female, class III obesity, mildly uncomfortable appearing due to ongoing abdominal pain, otherwise sitting back in bed and answering questions appropriately, in no acute distress. General Appearance: cooperative HEENT normocephalic, head/scalp atraumatic, hearing grossly normal bilaterally, nasal mucous membranes and turbinates normal and moist oral mucous membranes Eyes PERRL, EOMs intact bilaterally and conjunctivae normal Neck full ROM Chest inspection of chest normal Resp normal respiratory effort, normal air movement, no use of accessory muscles and clear to auscultation bilaterally Cardio regular rate, regular rhythm, no murmurs and peripheral pulses 2+ throughout GI GI Narrative: Mild tenderness to palpation around incision sites on abdomen. Bandages noted over incision sites that appear clean and dry. Abdomen otherwise soft and nondistended. Back/Spine normal ROM Extremity normal to inspection, full ROM and no pedal edema Skin no rashes or lesions noted Psych mental status grossly normal Assessment & Plan Assessment/Plan (1) Acute cholecystitis: PLAN: Plan Patient is a 40-year-old female who presented to [facility] ED on 02/17/25 with RUQ abdominal pain. 1. Acute cholecystitis with choledocholithiasis ? General Surgery following. Gallbladder ultrasound on admit with acute cholecystitis with multiple gallstones, mild gallbladder wall thickening and positive Daugherty sign. S/p laparoscopic cholecystectomy on 02/18. Tolerated procedure well, no intraoperative complications noted. Per surgery, patient was found to have choledocholithiasis on intraoperative cholangiogram but has downtrending LFTs postoperatively so they suspected these are nonobstructing filling defects that should pass spontaneously. Patient with some postoperative incisional pain improved with pain medications. Escalated to regular diet and tolerating without issue. Continue IV Zosyn. Per surgery, if she remains stable overnight will likely be okay for discharge home tomorrow morning. 2. Leukocytosis ? Noted to have leukocytosis to 21K postoperatively, up from 11Kpreoperatively. Repeat CBC on afternoon of 02/19 with leukocytosis downtrending to 17K. Per surgery, most likely reactive due to recent surgery. Will follow-up a.m. CBC. Okay to continue to treat with Zosyn as above. Chronic medical conditions: ? Class III obesity: BMI 40 on admit. Complicates hospital course and care. ? Hypertension: Normotensive to mildly hypertensive postoperatively, okay to continue home amlodipine and hydrochlorothiazide. ? Type 2 diabetes mellitus: Treating with sliding scale insulin with meals while inpatient, adjust as needed. ? GERD: Continue home PPI. ? Anxiety/depression/ADHD: Stable. Continue home BuSpar and clonazepam daily as needed. Holding atomoxetine while inpatient. DVT prophylaxis: SCDs CODE STATUS: Full code, verified Expected disposition: Home, 1 to 2 days Total clinical time spent by myself addressing the patient's medical issues, reviewing all the data, and collaborating with patient's care team: 38 minutes. Charges/Coding Visit Charges Inpatient E&M: 76397 Subs Hosp L2
[2025-02-19 13:19] LABS: Hematocrit 37.8 % (37-47); Hemoglobin 12.3 g/dL (12.0-15.0); Immature Granulocytes Count 0.090 X10^3/uL (0.0-0.0); Mean Corp Hgb Conc 32.5 g/dL (32-36); Mean Corpuscular Volume 81.8 fL (81-99); Mean Platelet Vol. 9.9 fl (6.2-12.0); NRBC Flagged by Analyzer 0 % (0-5); Platelet Count 313 K/mm3 (150-450); RBC Distribution Width CV 14.0 % (11.6-14.6); RBC Distribution Width SD 40.9 fl (35.1-43.9); Red Blood Count 4.62 M/mm3 (4.2-5.4); White Blood Count 17.2 K/mm3 (4.4-11.0)
[2025-02-19 14:19] LABS: AST(SGOT) 40 U/L (<=31); Alanine Aminotransfer ALT/SGPT 131 U/L (<=34); Albumin, Serum 3.7 g/dL (3.5-5.0); Alkaline Phosphatase 206 U/L (35-104); Anion Gap 13 (5-15); BUN 11 mg/dL (4-19); BUN/Creat Ratio 14.1 RATIO (10-20); Calcium,Total 9.1 mg/dL (7.6-11.0); Carbon Dioxide 23.6 mmol/L (21.0-32.0); Chloride 101 mmol/L (98-108); Estimated Creatinine Clearance 116.99 ml/min (50-250); Globulin 3.0 g/dL (2.2-4.2); Glucose 207 mg/dL (70-99); Potassium 3.5 mmol/L (3.3-5.1)
[2025-02-19 14:42] VITALS: BP 147/90; PULSE 94; RESP 16; TEMP 36.7; O2SAT 98
[2025-02-19 20:52] VITALS: BP 146/84; PULSE 90; RESP 15; TEMP 36.8; O2SAT 95
[2025-02-19] MEDS: 0.9% Saline Lock 10 ML Syringe IV (21:01)
[2025-02-20 00:43] VITALS: BP 179/106; PULSE 86; RESP 15; TEMP 36.6; O2SAT 99
[2025-02-20 05:30] LABS: Hematocrit 37.0 % (37-47); Hemoglobin 11.8 g/dL (12.0-15.0); Mean Corp Hgb Conc 31.9 g/dL (32-36); Mean Corpuscular Volume 81.0 fL (81-99); Mean Platelet Vol. 10.3 fl (6.2-12.0); Platelet Count 259 K/mm3 (150-450); RBC Distribution Width CV 14.0 % (11.6-14.6); RBC Distribution Width SD 41.1 fl (35.1-43.9); Red Blood Count 4.57 M/mm3 (4.2-5.4); White Blood Count 14.3 K/mm3 (4.4-11.0)
[2025-02-20 05:46] LABS: AST(SGOT) 26 U/L (<=31); Alanine Aminotransfer ALT/SGPT 95 U/L (<=34); Albumin, Serum 3.5 g/dL (3.5-5.0); Alkaline Phosphatase 169 U/L (35-104); Anion Gap 10 (5-15); BUN 10 mg/dL (4-19); BUN/Creat Ratio 14.9 RATIO (10-20); Calcium,Total 8.4 mg/dL (7.6-11.0); Carbon Dioxide 23.2 mmol/L (21.0-32.0); Chloride 104 mmol/L (98-108); Estimated Creatinine Clearance 134.19 ml/min (50-250); Globulin 3.0 g/dL (2.2-4.2); Glucose 127 mg/dL (70-99); Potassium 3.6 mmol/L (3.3-5.1)
--- NOTE | 2025-02-20 06:29 | PN.SURG_ITS ---
Subjective Subjective Patient seen and evaluated on rounds this morning. She denies any new issues or complaints. She has been tolerating diet. White count continues to decrease. Objective Data Objective Data Vital Signs: Vital Signs Temp Pulse Resp BP Pulse Ox O2 Del Method O2 Flow Rate 97.9 F 86 15 179/106 H 99 Room Air 2 02/20/25 00:43 02/20/25 00:43 02/20/25 00:43 02/20/25 00:43 02/20/25 00:43 02/20/25 00:43 02/19/25 03:46 Oxygen Flow Rate (L/min) 2 Oxygen Delivery Method Room Air Weight: 236 lb 12.423 oz Body Mass Index (BMI) 40.6 Intake & Output: Intake and Output for Last 24 Hours 02/18/25 02/19/25 02/20/25 23:59 23:59 23:59 Intake Total 2100 / 2100 2950 / 2950 50 / 50 Output Total 530 / 530 900 / 900 Balance 1570 / 1570 2049 / 2049 50 / 50 Lab / Micro Data 02/20/25 05:19 02/20/25 05:19 Labs: Laboratory Results - last 24 hr 02/19/25 05:34: Sodium 137, Potassium 3.8, Chloride 103, Carbon Dioxide 22.4, Anion Gap 12, BUN 9, Creatinine 0.70, Estim Creat Clear Calc 130.36, Est GFR (MDRD) Non-Af 114, BUN/Creatinine Ratio 12.5, Glucose 167 H, Calcium 9.0, Total Bilirubin 0.72, AST 66 H, ALT 155 H, Alkaline Phosphatase 232 H, Total Protein 6.7, Albumin 3.8, Globulin 3.0, Albumin/Globulin Ratio 1.3 02/19/25 06:37: POC Glucose 165 H 02/19/25 10:18: POC Glucose 261 H 02/19/25 13:05: WBC 17.2 H, RBC 4.62, Hgb 12.3, Hct 37.8, MCV 81.8, MCH 26.6 L, MCHC 32.5, RDW Std Deviation 40.9, RDW Coeff of Drake 14.0, Plt Count 313, MPV 9.9, Immature Gran % (Auto) 0.500, Neut % (Auto) 75.2 H, Lymph % (Auto) 18.2 L, [place] % (Auto) 5.4, Eos % (Auto) 0.5, Baso % (Auto) 0.2, Absolute Neuts (auto) 12.9 H, Absolute Lymphs (auto) 3.12, Nucleated RBC % 0, Sodium 137, Potassium 3.5, Chloride 101, Carbon Dioxide 23.6, Anion Gap 13, BUN 11, Creatinine 0.78, Estim Creat Clear Calc 116.99, Est GFR (MDRD) Non-Af 99, BUN/Creatinine Ratio 14.1, Glucose 207 H, Calcium 9.1, Total Bilirubin 0.48, AST 40 H, ALT 131 H, A lkaline Phosphatase 206 H, Total Protein 6.7, Albumin 3.7, Globulin 3.0, Albumin/Globulin Ratio 1.3 02/19/25 16:29: POC Glucose 230 H 02/19/25 21:09: POC Glucose 169 H 02/20/25 05:19: WBC 14.3 H, RBC 4.57, Hgb 11.8 L, Hct 37.0, MCV 81.0, MCH 25.8 L , MCHC 31.9 L, RDW Std Deviation 41.1, RDW Coeff of Drake 14.0, Plt Count 259, MPV 10.3, Sodium 137, Potassium 3.6, Chloride 104, Carbon Dioxide 23.2, Anion Gap 10, BUN 10, Creatinine 0.68 L, Estim Creat Clear Calc 134.19, Est GFR (MDRD) Non-Af 114, BUN/Creatinine Ratio 14.9, Glucose 127 H, Calcium 8.4, Total Bilirubin 0.43, AST 26, ALT 95 H, Alkaline Phosphatase 169 H, Total Protein 6.4, Albumin 3.5, Globulin 3.0, Albumin/Globulin Ratio 1.2 Physical Exam Narrative She is alert and oriented x 3. She is in no acute distress. Abdomen is soft and obese. Appropriate incisional tenderness to palpation. No rebound or guarding Assessment & Plan Assessment/Plan (1) Acute cholecystitis: PLAN: Plan The patient is a 40-year-old female who is status post a laparoscopic cholecystectomy for acute cholecystitis. Clinically she seems to be doing well postoperatively. In the initial postoperative period, her white blood cell count did increase however this continues to decrease and returned to normal Recommend continuing regular diet If patient continues to do well throughout the course of the day today, I see no reason why she cannot be discharged to home later today. Would recommend follow-up with Dr. Medrano in about 2 weeks.
[2025-02-20] MEDS: Piperacil/Tazobactam 3.375 GM in 0.9% Normal Saline (50mL MB+) 50 ML IV (06:36)
[2025-02-20 08:09] VITALS: BP 157/93; PULSE 85; RESP 16; TEMP 36.2; O2SAT 97
[2025-02-20] MEDS: Senna Tablet 1 TABLET PO (08:17)
--- NOTE | 2025-02-20 12:17 | PCM.DC.SUM ---
Providers Date of Admission: 02/17/25 Date of Discharge: 02/20/25 Primary Care Physician: Dr. Cindy Acosta MD Consultations 02/17/25 22:28 Consult: General Surgery Routine Consulting Provider: Dave Medrano Reason for Consult: Cholecystitis EMERGENT Consult: No MD Notified: Yes Date Notified: 02/17/25 Time Notified: 21:47 Method of Notification: ED Physician Initiated Reason For Visit: CHOLECYSTITIS Diagnosis Discharge Diagnosis (1) Acute cholecystitis: Status: Acute Code(s): K81.0 - Acute cholecystitis (2) Postoperative abdominal pain: Status: Acute Code(s): R10.9 - Unspecified abdominal pain; G89.18 - Other acute postprocedural pain Medications at Discharge Home Medications blood sugar diagnostic ([employer] [facility] Verio test strips) #200 ea 05/31/23 amlodipine 5 mg tablet 5 mg PO QDAY 03/12/24 metformin 1,000 mg tablet 1,000 mg PO BID #180 tabs 05/08/24 liraglutide 0.6 mg/0.1 mL (18 mg/3 mL) subcutaneous pen injector 1.8 mg subcut Q24H 09/02/24 ondansetron 4 mg disintegrating tablet 4 mg PO Q8H PRN PRN Nausea #10 tabs 09/10/24 pantoprazole 40 mg tablet,delayed release 40 mg PO DAILY #30 tabs 11/06/24 clonazepam 0.5 mg tablet (Klonopin) 0.5 mg PO DAILY PRN anxiety #15 tabs 12/26/24 atomoxetine 80 mg capsule 80 mg PO QDAY #30 caps 01/13/25 buspirone 15 mg tablet 15 mg PO TID #90 tabs 01/13/25 hydrochlorothiazide 25 mg tablet 25 mg PO DAILY 02/17/25 pen needle, diabetic 32 gauge x 02/17/25 amoxicillin 875 mg-potassium clavulanate 125 mg tablet 1 tab PO BID 5 days #10 tabs 02/20/25 oxycodone 5 mg tablet 5 mg PO Q6H PRN PRN Pain Score 6-10 2 days #8 tabs 02/20/25 Hospital Course Operations cholecystecomy Procedures EKG and - (Gallbladder ultrasound) Summary of Care Provided Minutes Spent on Discharge: 37 Hospital Course: Patient is a 40-year-old female who presented to [facility] [place] ED on 02/17/25 with RUQ abdominal pain. Hospital course as noted below. Patient discharged home in stable condition on 02/20. 1. Acute cholecystitis with choledocholithiasis ? General Surgery followed. Gallbladder ultrasound on admit with acute cholecystitis with multiple gallstones, mild gallbladder wall thickening and positive Daugherty sign. S/p laparoscopic cholecystectomy on 02/18. Tolerated procedure well, no intraoperative complications noted. Per surgery, patient was found to have choledocholithiasis on intraoperative cholangiogram but has downtrending LFTs postoperatively so they suspected these are nonobstructing filling defects that should pass spontaneously. Patient with some postoperative incisional pain improved with pain medications. Escalated to regular diet and tolerated without issue. Treated with IV Zosyn while inpatient and discharged on Augmentin to complete 7-day course of antibiotics total. Sent short prescription of oxycodone for postoperative pain control as well. Stable for discharge home on 02/20. 2. Leukocytosis, improving ? Noted to have leukocytosis to 21K postoperatively, up from 11K preoperatively. Repeat CBC on afternoon of 02/19 with leukocytosis downtrending to 17K and continued to downtrend on day of discharge. Per surgery, most likely reactive due to recent surgery but completing antibiotics as above which would cover for a potential infection. Chronic medical conditions: ? Class III obesity: BMI 40 on admit. Complicated hospital course and care. ? Hypertension: Normotensive to mildly hypertensive postoperatively, okay to continue home amlodipine and hydrochlorothiazide. ? Type 2 diabetes mellitus: Treated with sliding scale insulin with meals while inpatient with adequate glucose control. Resume home metformin and liraglutide on discharge. ? GERD: Continue home PPI. ? Anxiety/depression/ADHD: Stable. Continue home BuSpar and clonazepam daily as needed. Held atomoxetine while inpatient, can resume on discharge. Total clinical time spent by myself addressing the patient's medical issues, reviewing all the data, and collaborating with patient's care team: 37 minutes. Physical Exam Const alert, oriented x3 and no apparent distress Constitutional Narrative: Young middle-aged female, class III obesity, comfortable appearing today, laying back in bed and answering questions appropriately, in no acute distress. General Appearance: cooperative and comfortable HEENT normocephalic, head/scalp atraumatic, hearing grossly normal bilaterally, nasal mucous membranes and turbinates normal and moist oral mucous membranes Eyes PERRL, EOMs intact bilaterally and conjunctivae normal Neck full ROM Chest inspection of chest normal Resp normal respiratory effort, normal air movement, no use of accessory muscles and clear to auscultation bilaterally Cardio regular rate, regular rhythm, no murmurs and peripheral pulses 2+ throughout GI GI Narrative: Mild tenderness to palpation around incision sites on abdomen. Bandages noted over incision sites that appear clean and dry. Abdomen otherwise soft and nondistended. Stable. Back/Spine normal ROM Extremity normal to inspection, full ROM and no pedal edema Skin no rashes or lesions noted Psych mental status grossly normal Weight / BMI Weight Weight: 107.4 kg Body Mass Index (BMI) 40.6 ABG / Lab / Microbiology Data 02/20/25 05:19 02/20/25 05:19 Laboratory: Laboratory Results - last 24 hr 02/19/25 13:05: WBC 17.2 H, RBC 4.62, Hgb 12.3, Hct 37.8, MCV 81.8, MCH 26.6 L, MCHC 32.5, RDW Std Deviation 40.9, RDW Coeff of Drake 14.0, Plt Count 313, MPV 9.9, Immature Gran % (Auto) 0.500, Neut % (Auto) 75.2 H, Lymph % (Auto) 18.2 L, [place] % (Auto) 5.4, Eos % (Auto) 0.5, Baso % (Auto) 0.2, Absolute Neuts (auto) 12.9 H, Absolute Lymphs (auto) 3.12, Nucleated RBC % 0, Sodium 137, Potassium 3.5, Chloride 101, Carbon Dioxide 23.6, Anion Gap 13, BUN 11, Creatinine 0.78, Estim Creat Clear Calc 116.99, Est GFR (MDRD) Non-Af 99, BUN/Creatinine Ratio 14.1, Glucose 207 H, Calcium 9.1, Total Bilirubin 0.48, AST 40 H, ALT 131 H, Alkaline Phosphatase 206 H, Total Protein 6.7, Albumin 3.7, Globulin 3.0, Albumin/Globulin Ratio 1.3 02/19/25 16:29: POC Glucose 230 H 02/19/25 21:09: POC Glucose 169 H 02/20/25 05:19: WBC 14.3 H, RBC 4.57, Hgb 11.8 L, Hct 37.0, MCV 81.0, MCH 25.8 L, MCHC 31.9 L, RDW Std Deviation 41.1, RDW Coeff of Drake 14.0, Plt Count 259, MPV 10.3, Sodium 137, Potassium 3.6, Chloride 104, Carbon Dioxide 23.2, Anion Gap 10, BUN 10, Creatinine 0.68 L, Estim Creat Clear Calc 134.19, Est GFR (MDRD) Non-Af 114, BUN/Creatinine Ratio 14.9, Glucose 127 H, Calcium 8.4, Total Bilirubin 0.43, AST 26, ALT 95 H, Alkaline Phosphatase 169 H, Total Protein 6.4, Albumin 3.5, Globulin 3.0, Albumin/Globulin Ratio 1.2 02/20/25 06:40: POC Glucose 135 H 02/20/25 10:53: POC Glucose 164 H D/C Instructions DC O2, CPAP, BIPAP Needs Home O2 Discharge instructions: No Patient's Goals Of Care - F/U Goals Reviewed Goals of care reviewed with patient: NA-No significant change in clinical Status /major procedure scheduled Meaningful Use Info Meaningful Use Meaningful Use Diagnoses (Choose all that apply): None applicable Discharge Plan Admission Admit Date/Time: 02/17/25 21:44 Primary Reason for Your Visit: Abdominal pain Attending Provider: Oliver Javier Primary Care Provider: Cindy Acosta Consulting Providers: Dave Medrano; Alen Taylor; Kaylah Ji Instructions Additional Instructions / Restrictions: ? Take antibiotics twice daily for 5 more days to complete 7-day course total. ? Use oxycodone sparingly as needed for postoperative abdominal pain. ? Continue your other home indications as normal. Discharge Orders/Prescriptions Prescriptions: New oxycodone 5 mg Tablet 5 mg PO Q6H PRN PRN (Reason: Pain Score 6-10) 2 Days Qty: 8 0RF amoxicillin-pot clavulanate 875-125 mg tablet 1 tab PO BID 5 Days Qty: 10 0RF Continued amlodipine 5 mg tablet 5 mg PO QDAY ondansetron 4 mg tablet,disintegrating 4 mg PO Q8H PRN PRN (Reason: Nausea) Qty: 10 0RF liraglutide 0.6 mg/0.1 mL (18 mg/3 mL) pen injector 1.8 mg subcut Q24H Patient Comments: [NO ORIGINAL SIG] atomoxetine 80 mg capsule 80 mg PO QDAY Qty: 30 2RF buspirone 15 mg tablet 15 mg PO TID Qty: 90 2RF hydrochlorothiazide 25 mg tablet 25 mg PO DAILY (DME) pen needle, diabetic 32 gauge x / needle See Rx Instructions .Route Rx Instructions: daily (DME) OneTouch Verio test strips Strip See Rx Instructions .Route Qty: 200 5RF Rx Instructions: 5x/day metformin 1,000 mg tablet 1,000 mg PO BID Qty: 180 1RF pantoprazole 40 mg tablet,delayed release (DR/EC) 40 mg PO DAILY Qty: 30 5RF clonazepam [Klonopin] 0.5 mg tablet 0.5 mg PO DAILY PRN (Reason: anxiety) Qty: 15 1RF Referrals / Follow Up: Cindy Acosta MD [Primary Care Provider, Internal Medicine] Dave Medrano MD [Med Staff - Active Staff, General Surgery] Disposition Disposition (needs filled in before D/C Order can be placed): Home, Self Care Charges/Coding Visit Charges Inpatient E&M: 13013 Disch Hosp >30min
--- NOTE | 2025-02-20 13:47 | PHA.DC_ITS ---
Pharmacy [facility] has performed discharge medication counseling for this patient. The patient was counseled on the following discharge medications and changes in medications for homegoing review. - Augmentin 875 mg tablet, Oxycodone 5 mg tablet The Reason for Use, instructions for use, and potential side effects were reviewed for all new medications. The patient's questions regarding all of their medications were answered. The patient was able to verbally demonstrate an understanding of their discharge medications. Medications at Discharge Home Medications blood sugar diagnostic ([employer] Verio test strips) #200 ea 05/31/23 amlodipine 5 mg tablet 5 mg PO QDAY 03/12/24 metformin 1,000 mg tablet 1,000 mg PO BID #180 tabs 05/08/24 liraglutide 0.6 mg/0.1 mL (18 mg/3 mL) subcutaneous pen injector 1.8 mg subcut Q24H 09/02/24 ondansetron 4 mg disintegrating tablet 4 mg PO Q8H PRN PRN Nausea #10 tabs 09/10/24 pantoprazole 40 mg tablet,delayed release 40 mg PO DAILY #30 tabs 11/06/24 clonazepam 0.5 mg tablet (Klonopin) 0.5 mg PO DAILY PRN anxiety #15 tabs 12/26/24 atomoxetine 80 mg capsule 80 mg PO QDAY #30 caps 01/13/25 buspirone 15 mg tablet 15 mg PO TID #90 tabs 01/13/25 hydrochlorothiazide 25 mg tablet 25 mg PO DAILY 02/17/25 pen needle, diabetic 32 gauge x 02/17/25 amoxicillin 875 mg-potassium clavulanate 125 mg tablet 1 tab PO BID 5 days #10 tabs 02/20/25 oxycodone 5 mg tablet 5 mg PO Q6H PRN PRN Pain Score 6-10 2 days #8 tabs 02/20/25
[2025-02-20 14:09] VITALS: BP 155/100; PULSE 78; RESP 16; TEMP 36.2; O2SAT 97
== END 2025-02-20 15:59 | disposition home or self-care (01) | DRG 418 ==
LOC: ED 21:46 → MS3 21:52
PROVIDERS: Anesthesiology; Internal Medicine; Physician Assistant; Surgery; Admitting Provider Family Medicine; Emergency Provider Emergency Medicine; PCP Internal Medicine; Visit Provider Hospitalist
PROC: 0FT44ZZ Resection of Gallbladder, Percutaneous Endoscopic Approach (ICD-10-PCS; CPT 47610; principal; 2025-02-18 11:40)
DX: K80.42 Calculus of bile duct with acute cholecystitis without obstruction (principal); Z68.41 Body mass index [BMI] 40.0-44.9, adult; E11.9 Type 2 diabetes mellitus without complications; F32.A Depression, unspecified; I10 Essential (primary) hypertension; K21.9 Gastro-esophageal reflux disease without esophagitis; Z79.4 Long term (current) use of insulin; K82.8 Other specified diseases of gallbladder; F41.9 Anxiety disorder, unspecified; Z79.84 Long term (current) use of oral hypoglycemic drugs; F90.9 Attention-deficit hyperactivity disorder, unspecified type; Z79.899 Other long term (current) drug therapy; E66.813 Obesity, class 3
CPT/HCPCS: 36415; 74300; 76000; 76705; 80053; 81001; 82962; 83036; 83690; 84703; 85025; 85027; 88304; 93005; 99284; A4216; J2405